=== PATIENT | female | born 1945 | race Caucasian/White ===

== ENCOUNTER → 2018-02-18 00:16 | Outpatient (CLI) | payer MEDICARE, SELFPAY ==
--- NOTE | 2018-02-18 09:53 | DI.REPORT_ITS ---
SYMPTOM/DIAGNOSIS: 6-MO F/U ABNL MAMMO. RIGHT BREAST 6-MONTH FOLLOW UP RIGHT MAMMOGRAM: Mammograms were interpreted according to the usual protocol including computer analysis with CAD system, tomosynthesis and C view imaging. Comparison with prior examinations. Breast density C, no suspicious masses or microcalcifications are seen. There has been no significant change compared to the prior examinations. IMPRESSION: No evidence for malignancy. Yearly mammography should resume in 6 months with screening mammograms. Category 1-C. The findings were discussed with the patient on the date of the examination. SA ASSESSMENT OF FINDINGS: Negative. Category 1. Patient will receive a letter notifying them of these results. Bi-RADS category C. The breasts are heterogeneously dense, which may obscure small masses.
== END ==
PROVIDERS: PCP Specialist/Technologist Athletic Trainer; Visit Provider Physician Assistant Medical
DX: Z12.31 Encounter for screening mammogram for malignant neoplasm of breast (principal); R92.8 Other abnormal and inconclusive findings on diagnostic imaging of breast; N64.59 Other signs and symptoms in breast
CPT/HCPCS: 77065; G0279; 77061

== ENCOUNTER 2018-06-18 11:31 | Emergency (ER) | payer MEDICARE, OTHER, SELFPAY ==
[2018-06-18] VITALS (41 sets, daily range): BP systolic 103–153; BP diastolic 64–99; PULSE 84–175; RESP 8–29; TEMP 36.6; O2SAT 92–100
--- NOTE | 2018-06-18 11:35 | DI.RAD_ITS ---
SYMPTOMS/DIAGNOSIS: CHEST PAIN, SHORTNESS OF BREATH, ? ACUTE DISEASE PA AND LATERAL CHEST: Comparison is made with September,. The heart size is normal. The aorta is mildly tortuous but normal in diameter. There is a question of streaking densities at the left lung base, which could represent overlapping structures, atelectasis or a small infiltrate. No effusions are seen. IMPRESSION: Question of left basilar infiltrate versus atelectasis versus artifact.
[2018-06-18] MEDS: Adenosine 6 MG/2 ML VIAL (11:55)
[2018-06-18 11:57] LABS: Abs Immature Grans 0.02 k/cumm (0.0-0.09); Absolute Basophil Count 0.02 k/cumm (0.0-0.2); Absolute Eosinophil Count 0.16 k/cumm (0.0-0.7); Absolute Monocyte Count 0.92 k/cumm (0.11-0.7); Absolute Neutrophil Count 5.34 k/cumm (1.2-6.7); Basophils % 0.2; Eosinophils % 1.6; HCT 49.3 % (36.0-46.0); HGB 16.4 g/dL (12.0-15.5); Immature Grans % 0.2; Mean Corp. HGB Concentration 33.3 g/dL (32.0-36.0); Mean Corpuscular Hemoglobin 29.2 pg (27.0-33.0); Mean Corpuscular Volume 87.9 fL (80-95); Mean Platelet Volume 10.2 fL (8.0-11.0); Platelet Count 320 x1000/uL (130-400); RBC 5.61 m/cumm (4.00-5.20); RBC Distribution Width 13.6 % (11.7-14.6); White Blood Cell Count 10.26 k/cumm (4.4-10.8)
--- NOTE | 2018-06-18 12:09 | ED.GENADUL_ITS ---
Discharge Plan Disposition Patient Disposition: HOME Condition: Stable Discharge Details Chief Complaint: Palpitatns Clinical Impression: SVT (supraventricular tachycardia) Primary Care Provider: Dm Londono ED Provider: Alley Barajas Home Meds and New Rx's Prescriptions: New azithromycin [Zithromax] 500 mg tablet 500 mg PO QMWF 28 Days Qty: 12 RF: 0 diltiazem HCl 30 mg tablet 30 mg PO DIRECTED PRN (Reason: take 1 tab if heart rate >140 bpm for >10 minutes) Qty: 5 RF: 0 Continue ibuprofen 800 MG tablet 800 mg PO PRN RF: 0 sumatriptan succinate 100 MG tablet 100 mg PO ONCE RF: 0 albuterol sulfate [Ventolin HFA] 8 GM HFA aerosol inhaler 2 puff Inhalation Q2H PRN RF: 0 omeprazole [Prilosec] 10 MG capsule,delayed release(DR/EC) 20 mg PO DAILY RF: 0 venlafaxine [Effexor XR] 37.5 mg Capsule,Extended Release 24hr 37.5 mg PO DAILY RF: 0 rifampin 300 mg Capsule 300 mg PO DIRECTED RF: 0 diazepam 5 mg Tablet 5 mg PO PRN PRNRF: 0 zolpidem [Ambien CR] 12.5 mg Tablet,Ext Release Multiphase 12.5 mg PO HS RF: 0 budesonide-formoterol [Symbicort] 160-4.5 mcg/actuation Hfa Aerosol Inhaler 1 puff Inhalation BID RF: 0 Ethanbutaol 1,200 mg PO DIRECTED RF: 0 Discontinued clarithromycin 500 mg Tablet 1,000 mg PO DIRECTED RF: 0 Discharge Instructions Instructions: Supraventricular Tachycardia (ED) Additional Instructions: Stop taking your clarithromycin. Start taking your Zithromax as directed which will be 500 mg on Saturday and Saturday. If your heart rate is greater than 140 bpm for more than 10 minutes, you can take a 30 mg tablet of Diltiazem. If this does not improve your symptoms, you can return to the emergency department. Return the zio patch as directed. Call your primary care doctor and your health sciences program coordinator tomorrow to schedule follow -up appointment for reevaluation. Return immediately to the emergency department with any worsening or new concerning symptoms. 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 EKG on arrival noted heart rate of 174, SVT, QTC 435, QRS 74. Heart rate 170s. Blood pressure 153/99. Remainder vitals within normal limits. Patient appears nontoxic. Lungs clear to auscultation. No leg edema. 3 attempts with modified Valsalva with minimal reduction of heart rate into the 150s-160s. Patient then given 6 mg adenosine IV x1 and heart rate decreased to 100s-110s. Patient appears anxious and has a h/o anxiety. Pt states her symptoms have improved. Dose of 0.5 mg Ativan given and will continue IVF. 1240 --labs reviewed and no normal white blood cell count. Hemoglobin 16. Potassium 3.3. Magnesium 2. Troponin negative. 1250 -- HR 103. Pt denies any c/o chest pain, sob or palpitations at this time. Will plan for second troponin and will call cardiology for recommendations and attempt to d/w her health sciences program coordinator Dr. Villalobos if recommends to continue biaxin. 1410 -- d/w cardiology Dr. Pierce -recommends patient can either take an -- as needed short acting diltiazem 30 mg tab if heart rate greater than 140 for more than 10 minutes -- or -- patient can take 120 mg diltiazem once daily -- patient can decide which she prefers. Also recommends a zio patch on discharge. Discussed patient's medications and stated that the Effexor, Ambien , Imitrex would be less likely to cause this, and if Biaxin has caused it before , would recommend stopping this. 1440 -- d/w Dr. Villalobos -recommends to stop the Biaxin and start Zithromax 500mg //. We will follow-up with patient in the office in 1 week. 1610 -- second troponin negative. Repeat EKG notes a rate of 90, sinus, T wave inversion in V2, no acute ST elevation or depression. QTc 421. QRS 92. Patient denies any symptoms and feels good and is requesting to go home. Zio patch placed. Pt given scripts for zithromax and diltiazem. Patient would rather take the 30 mg diltiazem tab as needed. She was instructed to return immediately to the emergency department if her symptoms do not improve with the diltiazem as needed. She is instructed to call her primary care doctor and health sciences program coordinator tomorrow to schedule a follow-up appointment. Medical Records Medical records reviewed: Yes I reviewed the patient's medical records. Lab Data Lab results reviewed: Yes I reviewed the patient's lab results. Laboratory Tests Range/Units 06/18/18 06/18/18 06/18/18 11:45 11:45 11:45 WBC (4.4-10.8) k/cumm 10.26 RBC (4.00-5.20) m/cumm 5.61 H Hgb (12.0-15.5) g/dL 16.4 H Hct (36.0-46.0) % 49.3 H MCV (80-95) fL 87.9 MCH (27.0-33.0) pg 29.2 MCHC (32.0-36.0) g/dL 33.3 RDW (11.7-14.6) % 13.6 Plt Count (130-400) x1000/uL 320 MPV (8.0-11.0) fL 10.2 Immature Gran % 0.2 Neutrophils % 52.0 Lymphocytes % 37.0 Monocytes % 9.0 Eosinophils % 1.6 Basophils % 0.2 Absolute Neutrophils (1.2-6.7) k/cumm 5.34 Absolute Lymphocytes (1.2-3.4) k/cumm 3.80 H Absolute Monocytes (0.11-0.7) k/cumm 0.92 H Absolute Eosinophils (0.0-0.7) k/cumm 0.16 Absolute Basophils (0.0-0.2) k/cumm 0.02 Sodium (136-145) mmol/L 137 Potassium (3.5-5.1) mmol/L 3.3 L Chloride (98-107) mmol/L 98 Carbon Dioxide (21.0-32.0) mmol/L 28.4 Anion Gap (3-11) mmol/L 10.6 BUN (7-18) mg/dL 12 Creatinine (0.55-1.02) mg/dL 0.74 Estimated GFR/1.73 m2 (mL/min/1.73m2) >= 60.00 Glucose (70-100) mg/dL 120 H Calcium (8.5-10.1) mg/dL 10.3 H Magnesium (1.8-2.4) mg/dL 2.0 Total Bilirubin (0.2-1.0) mg/dL 1.1 H AST (15-37) U/L 16 ALT (12-78) U/L 23 Alkaline Phosphatase (46-116) U/L 84 Troponin I (0.00-0.06) ng/mL < 0.02 Total Protein (6.4-8.2) g/dL 7.9 Albumin (3.4-5.0) g/dL 4.4 Lipase (73-393) U/L 136 Range/Units 06/18/18 14:45 WBC (4.4-10.8) k/cumm RBC (4.00-5.20) m/cumm Hgb (12.0-15.5) g/dL Hct (36.0-46.0) % MCV (80-95) fL MCH (27.0-33.0) pg MCHC (32.0-36.0) g/dL RDW (11.7-14.6) % Plt Count (130-400) x1000/uL MPV (8.0-11.0) fL Immature Gran % Neutrophils % Lymphocytes % Monocytes % Eosinophils % Basophils % Absolute Neutrophils (1.2-6.7) k/cumm Absolute Lymphocytes (1.2-3.4) k/cumm Absolute Monocytes (0.11-0.7) k/cumm Absolute Eosinophils (0.0-0.7) k/cumm Absolute Basophils (0.0-0.2) k/cumm Sodium (136-145) mmol/L Potassium (3.5-5.1) mmol/L Chloride (98-107) mmol/L Carbon Dioxide (21.0-32.0) mmol/L Anion Gap (3-11) mmol/L BUN (7-18) mg/dL Creatinine (0.55-1.02) mg/dL Estimated GFR/1.73 m2 (mL/min/1.73m2) Glucose (70-100) mg/dL Calcium (8.5-10.1) mg/dL Magnesium (1.8-2.4) mg/dL Total Bilirubin (0.2-1.0) mg/dL AST (15-37) U/L ALT (12-78) U/L Alkaline Phosphatase (46-116) U/L Troponin I (0.00-0.06) ng/mL 0.02 Total Protein (6.4-8.2) g/dL Albumin (3.4-5.0) g/dL Lipase (73-393) U/L ECG Data Attestation: I personally reviewed and interpreted this ECG (s) as follows: Interpretation: EKG #1: 11:38: 174, SVT, diffuse ST depression.. QTc 435. QRS 74. EKG #2: 12:06: 110, sinus tachycardia, no acute ST elevation or depression. T wave inversion in aVL and V2. QTc 452. QRS 102. EKG #3: 15:57: 90, sinus, T wave inversion in V2, right bundle branch block, left anterior fascicular block. No acute ST elevation or depression. QTc 421. QRS 92 - no acute change compared to previous 2009. HPI General Mode of arrival: ambulatory . Date/Time Provider Initiated Documentation: 06/18/18 11:35 . Limitations to Documentation: no limitations . Information obtained by: patient . HPI Narrative: Patient is a 72-year-old female with a history of Mycobacterium avium complex on ethambutol, rifampin and clarithromycin for the past 6 months who presents with sudden onset of chest pain, shortness of breath and palpitations that started 20 minutes ago while driving. Patient admits to a previous history of similar symptoms twice 10 years ago while taking clarithromycin. Patient otherwise denies any recent travel, recent surgery, leg pain or swelling. She states prior to symptoms 20 minutes ago, she had been feeling well and at her baseline. Related Data Home Medications Medication Instructions Recorded Confirmed albuterol sulfate [Ventolin HFA] 2 puff INHALATION Q2H PRN inhaler 06/23/1311/29 ibuprofen 800 mg PO PRN tab-cap 06/23/13 06/18/18 sumatriptan succinate 100 mg PO ONCE tab-cap 06/23/13 06/18/18 omeprazole [Prilosec] 20 mg PO DAILY 10/04/15 06/18/18 Ethanbutaol 1,200 mg PO DIRECTED 06/18/18 azithromycin [Zithromax] 500 mg PO QMWF 28 Days #12 tab 06/18/18 budesonide-formoterol [Symbicort] 1 puff INHALATION BID 06/18/18 06/18/18 diazepam 5 mg PO PRN PRN 06/18/18 06/18/18 diltiazem HCl 30 mg PO DIRECTED PRN #5 tab 06/18/18 rifampin 300 mg PO DIRECTED 06/18/18 06/18/18 venlafaxine [Effexor XR] 37.5 mg PO DAILY 06/18/18 06/18/18 zolpidem [Ambien CR] 12.5 mg PO HS 06/18/18 06/18/18 Previous Rx's Medication Instructions Recorded azithromycin [Zithromax] 500 mg PO QMWF 28 Days #12 tab 06/18/18 diltiazem HCl 30 mg PO DIRECTED PRN #5 tab 06/18/18 Allergies Allergy/AdvReac Type Severity Reaction Status Date / Time naproxen Allergy Unverified 10/18/15 08:19 propoxyphene Allergy Unverified 10/18/15 08:19 amitriptyline AdvReac Unverified 06/18/18 12:08 cholecalciferol (vitamin D3) AdvReac Unverified 06/18/18 12:08 [cholecalciferol (vit D3)] ergocalciferol (vitamin D2) AdvReac Unverified 06/18/18 12:08 [ergocalciferol (vit D2)] oxycodone HCl AdvReac Unverified 06/18/18 12:08 [From OxyContin] General Stated Complaint: Palpitatns SELENE: 2 Review of Systems Review of Systems All systems reviewed & are unremarkable except as noted in HPI and below Constitutional Denies chills, Denies excessive sweating, Denies fatigue, Denies fever(s), Denies weakness and Denies weight loss Eyes Reports system reviewed and no additional complaints, except as docu and Denies blurry vision ENT Denies vertigo, Denies dizziness, Denies otalgia, Denies nasal congestion, Denies sore throat and Denies throat swelling Cardiovascular Reports chest pain, Denies syncope, Reports rapid heart rate and Reports dyspnea Respiratory Reports dyspnea Gastrointestinal Denies abdominal pain, Denies diarrhea and Denies vomiting Genitourinary Denies hematuria, Denies dysuria and Denies flank pain Musculoskeletal Denies back pain and Denies joint swelling Integumentary/Breasts Denies lesions and Denies rash Neurologic Denies behavioral changes, Denies confusion, Denies vertigo, Denies dizziness, Denies syncope and Denies weakness Psychiatric Denies behavioral changes, Denies confusion and Denies depression Endocrine Denies excessive sweating and Denies fatigue Hematologic/Lymphatic Denies easy bruising and Denies lymphadenopathy Allergic/Immunologic Denies throat swelling PFSH Mycobacterium avium complex colonization (Acute) Anxiety (Chronic) Diverticulitis (Chronic) History of bowel resection (Acute) H/O section (Chronic) Medical History Mycobacterium avium complex colonization (Acute) Anxiety (Chronic) Diverticulitis (Chronic) Social History Smoking/Tobacco Use Status: Former Tobacco Use Surgical History History of bowel resection (Acute) H/O section (Chronic) Social History Smoking/Tobacco Use Status: Former Tobacco Use alcohol intake: current alcohol intake frequency: a few times a month substance use type: does not use Exam Const General: cooperative and healthy appearing Orientation: alert and awake HENOK Head: normal to inspection Ears: hearing grossly normal bilaterally and external ears normal General nose exam: external nose normal Face and sinus: normal facial exam Mouth: oral mucosae normal Eyes General: appearance normal, both eyes and all related structures Eyelids: eyelids normal Pupils: PERRL EOM: EOM intact bilaterally Neck Neck: normal visual inspection Lymphatic: no lymphadenopathy noted Chest Chest: normal inspection of the chest Resp Effort & Inspection: normal respiratory effort and able to speak in complete sentences Auscultation: clear to auscultation bilaterally Cardio Rate: tachycardic Rhythm: regular rhythm GI Inspection: normal to inspection Palpation: soft, not firm, no guarding, no hepatosplenomegaly, no masses and nontender Auscultation: normal bowel sounds Skin General skin exam: no rashes or lesions noted Neuro General: alert and awake Cognition: normal cognition Speech: speech normal Gait: normal gait Motor: muscle tone normal throughout Sensory Exam: no sensory deficits noted Extrem General: normal to inspection, full ROM, normal capillary refill and no edema Psych Appearance: grossly normal Mental Status: mental status grossly normal Speech and Movement: speech and movement normal Affect: normal affect Thought Process: normal Course Vital Signs Pulse Oximetry 97 06/18/18 11:33 Temperature 97.9 F 06/18/18 11:40 Temperature Source Skin 06/18/18 11:40 Pulse 158 H 06/18/18 11:45 Pulse 107 H 06/18/18 11:50 Respiratory Rate 24 06/18/18 11:50 Respiratory Effort 06/18/18 11:43 Blood Pressure 133/71 06/18/18 11:45 Blood Pressure Mean 85 06/18/18 11:45 Pulse Oximetry 98 06/18/18 11:50 Oxygen Delivery Method Room Air 06/18/18 11:40 Oxygen Flow Rate 0 06/18/18 11:40 Pain Level 6 06/18/18 11:40 Comment 06/18/18 11:40 Lab/Test Results Lab/Test Results: Laboratory Tests Range/Units 06/18/18 11:45 WBC (4.4-10.8) k/cumm 10.26 RBC (4.00-5.20) m/cumm 5.61 H Hgb (12.0-15.5) g/dL 16.4 H Hct (36.0-46.0) % 49.3 H MCV (80-95) fL 87.9 MCH (27.0-33.0) pg 29.2 MCHC (32.0-36.0) g/dL 33.3 RDW (11.7-14.6) % 13.6 Plt Count (130-400) x1000/uL 320 MPV (8.0-11.0) fL 10.2 Immature Gran % 0.2 Neutrophils % 52.0 Lymphocytes % 37.0 Monocytes % 9.0 Eosinophils % 1.6 Basophils % 0.2 Absolute Neutrophils (1.2-6.7) k/cumm 5.34 Absolute Lymphocytes (1.2-3.4) k/cumm 3.80 H Absolute Monocytes (0.11-0.7) k/cumm 0.92 H Absolute Eosinophils (0.0-0.7) k/cumm 0.16 Absolute Basophils (0.0-0.2) k/cumm 0.02
[2018-06-18] MEDS: LORazepam 2 MG/ML VIAL (12:10)
[2018-06-18 12:13] LABS: ALT 23 U/L (12-78); AST 16 U/L (15-37); Albumin 4.4 g/dL (3.4-5.0); Alkaline Phosphatase 84 U/L (46-116); Anion Gap 10.6 mmol/L (3-11); BUN 12 mg/dL (7-18); Bilirubin, Total 1.1 mg/dL (0.2-1.0); CO2 28.4 mmol/L (21.0-32.0); CREATININE 0.74 mg/dL (0.55-1.02); Calcium 10.3 mg/dL (8.5-10.1); Chloride 98 mmol/L (98-107); Glucose 120 mg/dL (70-100); Potassium 3.3 mmol/L (3.5-5.1); Sodium 137 mmol/L (136-145); Total Protein 7.9 g/dL (6.4-8.2)
[2018-06-18 12:15] LABS: Troponin I < 0.02 ng/mL (0.00-0.06)
[2018-06-18 12:16] LABS: Lipase 136 U/L (73-393)
[2018-06-18] MEDS: Potassium Chloride 20 MEQ TABCR 40 MEQ PO (12:56)
[2018-06-18 15:08] LABS: Troponin I 0.02 ng/mL (0.00-0.06)
--- NOTE | 2018-07-10 09:00 | ZIOP_ITS ---
ZIO PATCH REPORT DATE OF DICTATION July 10, 2018 REASON FOR STUDY Palpitations. REQUESTING PROVIDER ALEXANDRE Aguirre FINDINGS The patient was monitored for 14 days. COMMENTS The patient was in sinus rhythm throughout. Average heart rate 85 beats per minute. Range 54 to 134 beats per minutes. There was rare ectopy. Less than 1% PACs and less than 1% PVCs. There was no ventricular or supraventricular tachycardia. There were no pauses greater than 3 seconds. There was no higher degree heart block. SYMPTOMS There were 7 patient events. None of these events correlated with arrhythmias. FINAL INTERPRETATION Normal study. Gold Pierce M.D. MISTI/carine T - 07/10/2018
--- NOTE | 2018-07-14 16:40 | ZIOP_ITS ---
DATE OF DICTATION: July 14, [address]: Fourteen days, June 18-2017 Baseline rhythm sinus. Rare single PAC. No SVT. No atrial fibrillation. Rare single PVC. No VT. No bradycardia or block. Seven triggered events occurring during sinus rhythm 69-120 bpm. No symptoms. Average heart rate sinus 85 bpm, range 54-134 bpm.
== END 2018-06-18 16:33 | disposition home or self-care (01) ==
PROVIDERS: Emergency Provider Physician Assistant; PCP Specialist/Technologist Athletic Trainer
DX: I47.1 Supraventricular tachycardia (principal); R07.9 Chest pain, unspecified; A31.0 Pulmonary mycobacterial infection
CPT/HCPCS: 36415; 80053; 83690; 93005; 93225; 96374; 96375; 99285; 71046; 83735; 84484; 85025; 93010; J0153; J2060

== ENCOUNTER 2018-07-10 08:20 | Outpatient (CLI) | payer MEDICARE, OTHER, SELFPAY | END 2018-07-10 08:40 | PROVIDERS: PCP Specialist/Technologist Athletic Trainer; Referring Provider Physician Assistant; Visit Provider Student in an Organized Health Care Education/Training Program | DX: R00.2 Palpitations (principal); I47.1 Supraventricular tachycardia | CPT/HCPCS: 0298T ==

== ENCOUNTER 2018-07-14 16:16 | Outpatient (CLI) | payer MEDICARE, OTHER, SELFPAY | END 2018-07-14 16:36 | PROVIDERS: PCP Specialist/Technologist Athletic Trainer; Referring Provider Specialist/Technologist Athletic Trainer; Visit Provider Internal Medicine Interventional Cardiology | DX: I47.1 Supraventricular tachycardia (principal); R07.9 Chest pain, unspecified | CPT/HCPCS: 0298T ==

== ENCOUNTER 2018-08-18 00:45 | Outpatient (CLI) | payer MEDICARE, OTHER, SELFPAY ==
--- NOTE | 2018-08-18 10:49 | DI.MAMMO_ITS ---
SYMPTOMS/DIAGNOSIS: SCREENING, Z12.31, HEALTH MAINTENANCE EXAM, Z00.8 MAMMOGRAM: Mammograms were interpreted according to the usual protocol including computer analysis with CAD system, tomosynthesis and C view imaging. Comparison is made with exams from 2013 through 2018. The breasts are composed of heterogeneously dense fibroglandular tissue, breast density Category C. No suspicious masses or suspicious microcalcifications are seen. There has been no significant change. IMPRESSION: Category I C, negative mammogram. Yearly screening mammography is recommended. [facility] ASSESSMENT OF FINDINGS: Negative. Category 1. Patient will receive a letter notifying them of these results. Bi-RADS category C. The breasts are heterogeneously dense, which may obscure small masses.
== END 2018-08-18 01:05 ==
PROVIDERS: PCP Specialist/Technologist Athletic Trainer; Visit Provider Physician Assistant Medical
DX: Z12.31 Encounter for screening mammogram for malignant neoplasm of breast (principal)
CPT/HCPCS: 77063; 77067

== ENCOUNTER 2018-10-28 21:01 | Outpatient (REF) | payer MEDICARE, SELFPAY | END 2018-10-28 21:21 | LOC: NCHCN 21:01 | PROVIDERS: PCP Specialist/Technologist Athletic Trainer; Visit Provider Physician Assistant Medical | DX: N39.0 Urinary tract infection, site not specified (principal) | CPT/HCPCS: 87086 ==

== ENCOUNTER 2019-05-11 14:23 | Emergency (ER) | payer MEDICARE, SELFPAY ==
[2019-05-11] VITALS (32 sets, daily range): BP systolic 110–171; BP diastolic 62–90; PULSE 67–88; RESP 15–24; TEMP 36.8; O2SAT 92–95
[2019-05-11] MEDS: Normal Saline Flush 10 ML SYR IVP (14:40)
--- NOTE | 2019-05-11 14:42 | DI.RAD_ITS ---
EXAM: XR CHEST 2V PA AND LATERAL INDICATION: left-sided chest pain. COMPARISON: XR CHEST 2V PA LATERAL from 06/18/2018 TECHNIQUE: 2D digital imaging was performed. FINDINGS: The heart size and pulmonary vasculature are within normal limits. The lungs show no consolidating i nfiltrates or effusions. No pneumothorax is identified. Age-appropriate degenerative changes are se en in the spine. IMPRESSION: No acute pulmonary process.
--- NOTE | 2019-05-11 14:44 | ED.GENADUL_ITS ---
Discharge Plan Disposition Patient Disposition: HOME Condition: Fair Discharge Details Chief Complaint: Chest Pain Clinical Impression: Chest pain, Leukocytosis Primary Care Provider: Tony Fuller ED Provider: Darlene La Home Meds and New Rx's Prescriptions: Continued ibuprofen 800 MG tablet 800 mg PO PRN RF: 0 sumatriptan succinate 100 MG tablet 100 mg PO ONCE RF: 0 albuterol sulfate [Ventolin HFA] 8 GM HFA aerosol inhaler 2 puff Inhalation Q2H PRN RF: 0 omeprazole [Prilosec] 10 MG capsule,delayed release(DR/EC) 20 mg PO DAILY RF: 0 temazepam 15 mg Capsule 15 mg PO PRNRF: 0 azithromycin 500 mg Tablet 500 mg PO RF: 0 venlafaxine 37.5 mg Capsule,Extended Release 24hr 37.5 mg PO DAILY RF: 0 Arikayce 590 mg/8.4 mL Suspension For Nebulization INHALATION RF: 0 rifampin 300 mg Capsule 300 mg PO DIRECTED RF: 0 diazepam 5 mg Tablet 5 mg PO PRN PRNRF: 0 Symbicort 160-4.5 mcg/actuation Hfa Aerosol Inhaler 1 puff Inhalation BID RF: 0 Ethanbutaol 1,200 mg PO DIRECTED RF: 0 diltiazem HCl 30 mg tablet 30 mg PO DIRECTED PRN (Reason: take 1 tab if heart rate >140 bpm for >10 minutes) Qty: 5 RF: 0 Discharge Instructions Instructions: Leukocytosis (ED) Additional Instructions: Encourage hydration. Please continue medications as previously prescribed. As we discussed, your white count is elevated but this is likely associated with the prednisone. We should have this rechecked by your primary care provider. Please call pulmonology to discuss the change in medications. If you develop no recurrence of your pain, shortness of breath or the new/worsening symptoms please seek care urgently once again. Please call your primary care tomorrow to schedule appointment for reevaluation this week. Referrals: Tony Fuller PA [Primary Care Provider] - Medical Decision Making <ALEXANDRE Delacruz - Last Filed: 05/11/19 16:11> This is a nontoxic-appearing 33-year-old female presenting to the emergency department with abrupt onset of left upper chest pain, sharp in nature. No radiation of symptoms. Physical exam is unremarkable. Her labs thus far are all within normal limits. Her chest x-ray is negative for acute process. Low heart score based on information thus far. Discussed repeat delta troponin. Case reviewed with Darlene La PAC. who will assume care. See her note for final disposition ECG Data Interpretation: Sinus rhythm with low voltage criteria. Question left anterior fascicular block. No STEMI. No T wave inversion <ALEXANDRE Tristan - Last Filed: 05/11/19 18:13> Care was transitioned to myself with imaging and repeat troponin pending. FINDINGS: The heart size and pulmonary vasculature are within normal limits. The lungs show no consolidating infiltrates or effusions. No pneumothorax is identified. Age-appropriate degenerative changes are seen in the spine. IMPRESSION: No acute pulmonary process. Reviewed the labs completed thus far, patient is noted to have a leukocytosis with white count of 15.29. Platelet count is slightly elevated at 413. Absolute neutrophil 8.39. Patient is CBC completed on 04/14/2019 at [facility] at which time white count was 7. Discussed these findings with the patient. At this time, we discussed she is currently on prednisone. Is likely was driving her new leukocytosis. However, particular given her history of MAC, I did advise that she have this rechecked and closely follow-up with her primary care. Repeat troponin remains less than 0.05. I discussed this with the patient. She is been asymptomatic while here. As the symptoms came on suddenly while sedentary and lasted 30 seconds, spontaneously resolving, this does not sound typical for cardiac etiology of chest pain. Her d-dimer was negative. Advise close follow-up with primary care as well as pulmonology. She will call both of them tomorrow to schedule prompt follow-up. She was given strict return precautions. Patient does feel comfortable going home. All of her questions and concerns were addressed and she is in agreement with this plan. HPI <ALEXANDRE Delacruz - Last Filed: 05/11/19 16:11> General Date/Time Provider Initiated Documentation: 05/11/19 14:27 . 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 She has been on roughly 13 months of therapy. She presents to the emergency department with left upper chest pain which started abruptly roughly 3 hours prior to arrival. She describes this pain as sharp and nonradiating. She was sitting at the kitchen counter when it occurred. She denies any nausea. She did feel slightly woozy. She states that she was seen at [facility] 5 days prior for symptoms of dyspnea along with chest pain. She had a normal work-up at that time and was discharged home. She was taking Arikayce (medication, and inhaled for MAC infection) at that time for which she has discontinued. Related Data Home Medications Medication Instructions Recorded Confirmed albuterol sulfate [Ventolin HFA] 2 puff INHALATION Q2H PRN inhaler 06/23/13 05/11/19 ibuprofen 800 mg PO PRN tab-cap 06/23/13 05/11/19 sumatriptan succinate 100 mg PO ONCE tab-cap 06/23/13 05/11/19 omeprazole [Prilosec] 20 mg PO DAILY 10/04/15 05/11/19 Ethanbutaol 1,200 mg PO DIRECTED 06/18/18 05/11/19 Symbicort 1 puff INHALATION BID 06/18/18 05/11/19 diazepam 5 mg PO PRN PRN 06/18/18 05/11/19 diltiazem HCl 30 mg PO DIRECTED PRN #5 tab 06/18/18 05/11/19 rifampin 300 mg PO DIRECTED 06/18/18 05/11/19 Arikayce mg INHALATION 05/11/19 azithromycin 500 mg PO 05/11/19 temazepam 15 mg PO PRN 05/11/19 venlafaxine 37.5 mg PO DAILY 05/11/19 05/11/19 Previous Rx's Medication Instructions Recorded diltiazem HCl 30 mg PO DIRECTED PRN #5 tab 06/18/18 Allergies Allergy/AdvReac Type Severity Reaction Status Date / Time naproxen Allergy Unverified 05/11/19 14:43 propoxyphene Allergy Unverified 05/11/19 14:43 amitriptyline AdvReac Unverified 05/11/19 14:43 cholecalciferol (vitamin D3) AdvReac Unverified 05/11/19 14:43 [cholecalciferol (vit D3)] ergocalciferol (vitamin D2) AdvReac Unverified 05/11/19 14:43 [ergocalciferol (vit D2)] oxycodone HCl AdvReac Unverified 05/11/19 14:43 [From OxyContin] General Stated Complaint: Chest Pain SELENE: 2 Review of Systems <ALEXANDRE Delacruz - Last Filed: 05/11/19 16:11> Constitutional Constitutional: Denies body ache(s), Denies chills, Denies fever(s), Denies leth argy, Denies malaise, Denies night sweats and Denies weakness ENT Ears, Nose, Mouth, and Throat: Denies dizziness and Denies neck pain Cardiovascular Cardiovascular: Reports chest pain, Denies chest pain at rest, Denies chest pain with activity, Denies diaphoresis, Denies syncope, Denies irregular heart rhythm, Denies claudication, Denies leg ulcers, Denies leg edema, Denies lightheadedness, Denies palpitations, Reports dyspnea and Denies dyspnea on exertion Respiratory Respiratory: Denies cough, Denies hemoptysis, Reports dyspnea, Denies dyspnea on exertion and Denies wheezing Gastrointestinal Gastrointestinal: Denies abdominal pain, Denies nausea and Denies vomiting Musculoskeletal Musculoskeletal: Denies back pain, Denies neck pain and Denies numbness Integumentary/Breasts Skin/Breast: Denies rash Neurologic Neurologic: Denies confusion, Denies dizziness, Denies syncope, Denies numbness and Denies weakness Psychiatric Psychiatric: Denies confusion Endocrine Endocrine: Denies palpitations Allergic/Immunologic Allergic/Immunologic: Denies wheezing PFSH <ALEXANDRE Delacruz - Last Filed: 05/11/19 16:11> Medical History Anxiety (Chronic) Diverticulitis (Chronic) Mycobacterium avium complex colonization (Acute) Surgical History H/O section (Chronic) History of bowel resection (Acute) Social History Smoking/Tobacco Use Status: Former Tobacco Use Alcohol Intake: current Alcohol Intake frequency: a few times a month Drug use: Never Substance use type: does not use Do you feel safe in your relationship?: Yes Exam <ALEXANDRE Delacruz - Last Filed: 05/11/19 16:11> Const General: cooperative, healthy appearing, comfortable and no acute distress Nutritional Appearance: average body habitus Orientation: alert, awake and oriented x3 HENMT Head: normal to inspection General nose exam: external nose normal Face and sinus: normal facial exam Mouth: oral mucosae normal Eyes General: appearance normal, both eyes and all related structures Periorbital: periorbital findings normal Pupils: PERRL EOM: EOM intact bilaterally Neck Neck: normal visual inspection, full ROM and no lymphadenopathy Chest Chest: normal inspection of the chest and normal palpation of entire chest wall Breast inspection: normal inspection of the breasts Resp Effort & Inspection: normal respiratory effort and able to speak in complete sentences Auscultation: clear to auscultation bilaterally Cardio Rate: regular rate Rhythm: regular rhythm Pulses: normal peripheral pulses GI Inspection: normal to inspection Palpation: soft Back/Spine/Pelvis Back: no CVA tenderness Skin General skin exam: no rashes or lesions noted Neuro General: alert, awake and oriented x3 Cranial Nerves: CN's II-XI intact bilaterally Course <ALEXANDRE Delacruz Filed: 05/11/19 16:11> Vital Signs Vital signs: Vital Signs Temperature 36.8 C 05/11/19 14:38 Pulse 86 05/11/19 14:38 Respiratory Rate 16 05/11/19 14:38 Blood Pressure 171/84 H 05/11/19 14:38 Pulse Oximetry 94 L 05/11/19 14:38 Temperature 36.8 C 05/11/19 14:38 Temperature Source Skin 05/11/19 14:38 Pulse 86 05/11/19 14:38 Respiratory Rate 16 05/11/19 14:38 Respiratory Effort Non-Labored 05/11/19 14:38 Blood Pressure 171/84 H 05/11/19 14:38 Blood Pressure Position Supine 05/11/19 14:38 Pulse Oximetry 94 L 05/11/19 14:38 Oxygen Delivery Method Room Air 05/11/19 14:38 Oxygen Flow Rate 0 05/11/19 14:38 Pain Level 0 05/11/19 14:38 Sign Out <ALEXANDRE Delacruz Filed: 05/11/19 16:11> Sign Out Data: Sign Out Comment: Awaiting delta troponin. Initial labs all within normal limits including d-dimer. If delta troponin patient can be discharged home with close follow-up. Last updated by Chano Ramirez PA at 05/11/19 16:07
[2019-05-11 15:16] LABS: Abs Immature Grans 0.05 k/cumm (0.0-0.09); Absolute Basophil Count 0.03 k/cumm (0.0-0.2); Absolute Eosinophil Count 0.84 k/cumm (0.0-0.7); Absolute Monocyte Count 1.22 k/cumm (0.11-0.7); Basophils % 0.2; Eosinophils % 5.5; HCT 47.3 % (36.0-46.0); HGB 15.4 g/dL (12.0-15.5); Immature Grans % 0.3; Lymphocytes % 31.1; Mean Corp. HGB Concentration 32.6 g/dL (32.0-36.0); Mean Corpuscular Hemoglobin 28.6 pg (27.0-33.0); Mean Corpuscular Volume 87.9 fL (80-95); Mean Platelet Volume 10.1 fL (8.0-11.0); Neutrophils % 54.9; Platelet Count 413 x1000/uL (130-400); RBC 5.38 m/cumm (4.00-5.20); RBC Distribution Width 13.6 % (11.7-14.6); White Blood Cell Count 15.29 k/cumm (4.4-10.8)
[2019-05-11 15:17] LABS: Absolute Lymphocyte Count 4.76 k/cumm (1.2-3.4)
[2019-05-11 15:18] LABS: Absolute Neutrophil Count 8.39 k/cumm (1.2-6.7)
[2019-05-11 15:31] LABS: ALT 29 U/L (14-59); AST 14 U/L (15-37); Alkaline Phosphatase 86 U/L (46-116); Anion Gap 4.8 mmol/L (3-11); BUN 13 mg/dL (7-18); Bilirubin, Total 0.2 mg/dL (0.2-1.0); CO2 31.2 mmol/L (21.0-32.0); CREATININE 0.66 mg/dL (0.55-1.02); Calcium 10.5 mg/dL (8.5-10.1); Chloride 102 mmol/L (98-107); Glucose 98 mg/dL (70-100); Magnesium 2.2 mg/dL (1.8-2.4); Sodium 138 mmol/L (136-145); Total Protein 7.8 g/dL (6.4-8.2)
[2019-05-11 15:32] LABS: Troponin I < 0.05 ng/mL (0.00-0.06)
[2019-05-11 15:46] LABS: D-Dimer 238 ng/mlFEU (<500)
[2019-05-11 17:37] LABS: Troponin I < 0.05 ng/mL (0.00-0.06)
== END 2019-05-11 18:15 | disposition home or self-care (01) ==
PROVIDERS: Physician Assistant; Emergency Provider Physician Assistant; PCP Physician Assistant Medical
DX: R07.9 Chest pain, unspecified (principal); D72.829 Elevated white blood cell count, unspecified
CPT/HCPCS: 36415; 80053; 99284; 71046; 83735; 84484; 85025; 85379

== ENCOUNTER 2019-07-06 01:44 | Outpatient (CLI) | payer MEDICARE, SELFPAY ==
--- NOTE | 2019-07-24 08:26 | W.ZIOMONITOR ---
Date of service: 07/24/19 Time of Service: 08:27 ZIO Patch Fishing Captain Note: This is a 2-week ZIO patch ordered for the indication of palpitations. ?The patient was predominantly in normal sinus rhythm. ?There was one episode of supraventricular tachycardia which lasted 7 beats at a maximum rate of 154 bpm. ?There were isolated (less than 1%) supraventricular ectopic beats ?There were isolated (less than 1%) ventricular ectopic beats and no runs of ventricular tachycardia. ?There were no pauses greater than 3 seconds, episodes of high degree AV block or episodes of atrial fibrillation. ?Patient triggered event was associated with sinus rhythm.
== END 2019-07-06 02:04 ==
PROVIDERS: PCP Physician Assistant Medical; Visit Provider Internal Medicine Cardiovascular Disease
DX: R00.2 Palpitations (principal); I47.1 Supraventricular tachycardia; I49.3 Ventricular premature depolarization
CPT/HCPCS: 0296T

== ENCOUNTER 2019-07-24 08:26 | Outpatient (CLI) | payer MEDICARE, SELFPAY | END 2019-07-24 08:46 | PROVIDERS: PCP Physician Assistant Medical; Referring Provider Physician Assistant Medical; Visit Provider Internal Medicine Cardiovascular Disease | DX: R00.2 Palpitations (principal); I47.1 Supraventricular tachycardia; I49.3 Ventricular premature depolarization | CPT/HCPCS: 0298T ==

== ENCOUNTER 2019-07-31 08:44 | Outpatient (CLI) | payer MEDICARE, SELFPAY ==
[2019-07-31 11:52] LABS: Abs Immature Grans 0.02 k/cumm (0.0-0.09); Absolute Basophil Count 0.01 k/cumm (0.0-0.2); Absolute Eosinophil Count 0.16 k/cumm (0.0-0.7); Absolute Lymphocyte Count 2.58 k/cumm (1.2-3.4); Absolute Monocyte Count 0.56 k/cumm (0.11-0.7); Absolute Neutrophil Count 3.74 k/cumm (1.2-6.7); Basophils % 0.1; Eosinophils % 2.3; HCT 42.9 % (36.0-46.0); Immature Grans % 0.3 %; Lymphocytes % 36.5; Mean Corp. HGB Concentration 32.6 g/dL (32.0-36.0); Mean Corpuscular Hemoglobin 28.8 pg (27.0-33.0); Mean Corpuscular Volume 88.3 fL (80-95); Mean Platelet Volume 10.1 fL (8.0-11.0); Monocytes % 7.9; Neutrophils % 52.9; Platelet Count 314 x1000/uL (130-400); RBC 4.86 m/cumm (4.00-5.20); White Blood Cell Count 7.07 k/cumm (4.4-10.8)
[2019-07-31 12:56] LABS: ALT 15 U/L (14-59); AST 14 U/L (15-37); Albumin 3.9 g/dL (3.4-5.0); Alkaline Phosphatase 86 U/L (46-116); Amylase 60 U/L (25-115); Anion Gap 9.9 mmol/L (3-11); BUN 10 mg/dL (7-18); Bilirubin, Total 0.7 mg/dL (0.2-1.0); CO2 27.1 mmol/L (21.0-32.0); CREATININE 0.64 mg/dL (0.55-1.02); Calcium 9.7 mg/dL (8.5-10.1); Chloride 102 mmol/L (98-107); Glucose 98 mg/dL (74-106); Lipase 128 U/L (73-393); Potassium 3.8 mmol/L (3.5-5.1); Sodium 139 mmol/L (136-145); Total Protein 6.7 g/dL (6.4-8.2)
== END 2019-07-31 09:04 ==
PROVIDERS: PCP Physician Assistant Medical; Visit Provider Internal Medicine Infectious Disease
DX: R10.9 Unspecified abdominal pain (principal)
CPT/HCPCS: 36415; 80053; 83690; 87116; 87206; 82150; 85025

== ENCOUNTER 2019-08-03 08:40 | Outpatient (CLI) | payer MEDICARE, SELFPAY | END 2019-08-03 09:00 | PROVIDERS: PCP Physician Assistant Medical; Visit Provider Internal Medicine Cardiovascular Disease | DX: I47.1 Supraventricular tachycardia (principal); A31.0 Pulmonary mycobacterial infection; I48.0 Paroxysmal atrial fibrillation | CPT/HCPCS: 99204; 99215; 93005; 93010 ==

== ENCOUNTER 2019-09-14 09:48 | Outpatient (CLI) | payer MEDICARE, SELFPAY ==
[2019-09-14 14:44] LABS: Abs Immature Grans 0.01 k/cumm (0.0-0.09); Absolute Basophil Count 0.01 k/cumm (0.0-0.2); Absolute Eosinophil Count 0.17 k/cumm (0.0-0.7); Absolute Lymphocyte Count 1.96 k/cumm (1.2-3.4); Absolute Monocyte Count 0.52 k/cumm (0.11-0.7); Absolute Neutrophil Count 4.03 k/cumm (1.2-6.7); Basophils % 0.1; Eosinophils % 2.5; HCT 43.2 % (36.0-46.0); HGB 13.9 g/dL (12.0-15.5); Immature Grans % 0.1 %; Lymphocytes % 29.3; Mean Corp. HGB Concentration 32.2 g/dL (32.0-36.0); Mean Corpuscular Hemoglobin 28.8 pg (27.0-33.0); Mean Corpuscular Volume 89.4 fL (80-95); Mean Platelet Volume 9.9 fL (8.0-11.0); Monocytes % 7.8; Neutrophils % 60.2; Platelet Count 289 x1000/uL (130-400); RBC 4.83 m/cumm (4.00-5.20); RBC Distribution Width 14.2 % (11.7-14.6)
[2019-09-14 15:38] LABS: ALT 17 U/L (14-59); AST 14 U/L (15-37); Albumin 3.7 g/dL (3.4-5.0); Alkaline Phosphatase 69 U/L (46-116); Anion Gap 7.8 mmol/L (3-11); BUN 13 mg/dL (7-18); Bilirubin, Total 0.6 mg/dL (0.2-1.0); CO2 31.2 mmol/L (21.0-32.0); CREATININE 0.61 mg/dL (0.55-1.02); Calcium 9.6 mg/dL (8.5-10.1); Chloride 103 mmol/L (98-107); Glucose 127 mg/dL (74-106); Potassium 3.6 mmol/L (3.5-5.1); Sodium 142 mmol/L (136-145); Total Protein 6.4 g/dL (6.4-8.2)
== END 2019-09-14 10:08 ==
PROVIDERS: PCP Physician Assistant Medical; Visit Provider Internal Medicine Infectious Disease
DX: Z51.81 Encounter for therapeutic drug level monitoring (principal); R69 Illness, unspecified
CPT/HCPCS: 36415; 80053; 85025

== ENCOUNTER 2020-01-01 10:44 | Outpatient (REF) | payer MEDICARE, SELFPAY ==
[2020-01-01 19:59] LABS: ALT 21 U/L (14-59); AST 18 U/L (15-37); Albumin 4.1 g/dL (3.4-5.0); Alkaline Phosphatase 70 U/L (46-116); Anion Gap 8.5 mmol/L (3-11); BUN 11 mg/dL (7-18); Bilirubin, Total 0.7 mg/dL (0.2-1.0); CO2 28.5 mmol/L (21.0-32.0); CREATININE 0.68 mg/dL (0.55-1.02); Chloride 102 mmol/L (98-107); Glucose 93 mg/dL (74-106); Potassium 4.3 mmol/L (3.5-5.1); Sodium 139 mmol/L (136-145); Total Protein 6.9 g/dL (6.4-8.2)
[2020-01-01 20:29] LABS: Abs Immature Grans 0.02 k/cumm (0.0-0.09); Absolute Basophil Count 0.01 k/cumm (0.0-0.2); Absolute Eosinophil Count 0.19 k/cumm (0.0-0.7); Absolute Lymphocyte Count 2.59 k/cumm (1.2-3.4); Absolute Monocyte Count 0.71 k/cumm (0.11-0.7); Absolute Neutrophil Count 3.65 k/cumm (1.2-6.7); Basophils % 0.1; Eosinophils % 2.6; HCT 45.1 % (36.0-46.0); Immature Grans % 0.3 %; Lymphocytes % 36.1; Mean Corp. HGB Concentration 33.3 g/dL (32.0-36.0); Mean Corpuscular Hemoglobin 29.5 pg (27.0-33.0); Mean Corpuscular Volume 88.8 fL (80-95); Mean Platelet Volume 10.5 fL (8.0-11.0); Monocytes % 9.9; Platelet Count 308 x1000/uL (130-400); RBC 5.08 m/cumm (4.00-5.20); RBC Distribution Width 14.2 % (11.7-14.6); White Blood Cell Count 7.17 k/cumm (4.4-10.8)
[2020-01-01 20:44] LABS: Hemoglobin A1C 5.8 % (3.8-5.6)
== END 2020-01-01 11:04 ==
LOC: NCHCN 10:44
PROVIDERS: PCP Physician Assistant Medical; Visit Provider Physician Assistant Medical
DX: A31.0 Pulmonary mycobacterial infection (principal); B96.89 Other specified bacterial agents as the cause of diseases classified elsewhere; R73.03 Prediabetes
CPT/HCPCS: 80053; 87116; 87206; 83036; 85025

== ENCOUNTER 2020-01-05 00:39 | Outpatient (CLI) | payer MEDICARE, SELFPAY ==
[2020-01-05] MEDS: Barium Sulfate 60% W/V 355 ML BTL PO ×2 (12:02)
--- NOTE | 2020-01-05 12:03 | DI.RAD_ITS ---
EXAM: RF BARIUM SWALLOW CLINICAL HISTORY: DYSPHAGIA, R13.10 TECHNIQUE: COMPARISON: CR XR CHEST 2V PA LATERAL from 05/11/2019 FINDINGS: Preliminary films of the chest and neck unremarkable, some pulmonary scarring is noted with no signif icant change comparison with prior films including April 2019. Barium was ingested and showed grossly normal hypo pharyngeal motility. Esophageal motility appears within normal limits. No focal esophageal stricture. No esophageal mucosal abnormality. Visualized portions of the stomach and duodenum are unremarkable. IMPRESSION: Negative barium swallow.
== END 2020-01-05 00:59 ==
PROVIDERS: PCP Physician Assistant Medical; Visit Provider Physician Assistant Medical
DX: R13.10 Dysphagia, unspecified (principal)
CPT/HCPCS: 74221

== ENCOUNTER 2020-02-04 00:26 | Outpatient (CLI) | payer MEDICARE, SELFPAY ==
--- NOTE | 2020-02-04 | DI.CT_ITS ---
EXAM: CT CHEST WO CLINICAL HISTORY: MYCOBACTERIUM AVIUM IIBUCVMSIL24.0,CHRONIC COUGH,RECURRENT MAC INFECTION. TECHNIQUE: Imaging protocol: Axial computed tomography images were obtained and coronal and sagittal reformatted images were created and reviewed. COMPARISON: CT CT CHEST WO CONTRAST ( from 06/15/2019 FINDINGS: Tracheobronchial tree: There are stable scattered areas of bronchiectasis present. The findings are most marked in the right middle and left lingular lobes. Mediastinum and Marla: No dominant adenopathy or fluid collection. Pulmonary parenchyma: The parenchymal findings in the right upper lobe, right middle lobe and left up per lobe appears stable. No new infiltrates are present. Unchanged scarring is seen in the right mi ddle lobe and left lingula. Mild centrilobular emphysematous changes are present. Calcified granulo ma are seen in the lungs. Pleura: No effusion or pneumothorax. Heart: The heart is not dilated. No coronary artery calcifications are seen. No pericardial effusion. Aorta: Thoracic aorta non-dilated. Atherosclerosis. Upper abdomen: Stable hepatic cysts. Lymph nodes: Within normal limits. Bones:No acute abnormality. Soft tissues: Unremarkable. IMPRESSION: 1. Stable pulmonary findings compared to the examination from 06/15/2019. 2. No acute pulmonary process. RADIATION DOSE DELIVERED: Total DLP Total DLP DATA REPOSITORY: All CT scans at this facility are submitted to the National Radiology Data Registry (NRDR) Dose Index Registry (DIR) with the [employer] (ACR). RADIATION OPTIMIZATION: All CT scans at this facility use at least one of these dose optimization te chniques: automated exposure control; mA and/or kV adjustment per patient size (includes targeted exa ms where dose is matched to clinical indication); or iterative reconstruction.
== END 2020-02-04 00:46 ==
PROVIDERS: PCP Physician Assistant Medical; Visit Provider Internal Medicine Infectious Disease
DX: R05 Cough (principal); A31.0 Pulmonary mycobacterial infection
CPT/HCPCS: 71250

== ENCOUNTER 2020-04-05 01:31 | Outpatient (CLI) | payer MEDICARE, SELFPAY ==
[2020-04-05 11:40] LABS: Abs Immature Grans 0.02 10^3/uL (0.0-0.06); Absolute Basophil Count 0.02 10^3/uL (0.0-0.2); Absolute Eosinophil Count 0.21 10^3/uL (0.0-0.7); Absolute Lymphocyte Count 2.88 10^3/uL (1.2-3.4); Absolute Monocyte Count 0.53 10^3/uL (0.1-0.8); Absolute Neutrophil Count 4.15 10^3/uL (1.2-6.7); Basophils % 0.3; Eosinophils % 2.7; HCT 44.1 % (36.0-46.0); HGB 13.9 g/dL (11.2-15.7); Immature Grans % 0.3; Lymphocytes % 36.9; MCH 28.6 pg (27.0-33.0); MCHC 31.5 % (32.0-36.0); MCV 90.7 fL (80-95); MPV 9.7 fL (8.0-11.0); Monocytes % 6.8; Nucleated RBC 0 %; Platelet Count 270 10^3/uL (130-400); RBC 4.86 10^6/uL (3.93-5.22); RDW 13.1 % (11.7-14.6); RDW-SD 43.6 fL; WBC 7.81 10^3/uL (4.4-10.8)
[2020-04-05 12:26] LABS: ALT 23 U/L (14-59); AST 15 U/L (15-37); Albumin 3.9 g/dL (3.4-5.0); Alkaline Phosphatase 74 U/L (46-116); Anion Gap 6.8 mmol/L (3-11); BUN 14 mg/dL (7-18); Bilirubin, Total 0.4 mg/dL (0.2-1.0); CO2 31.2 mmol/L (21.0-32.0); CREATININE 0.59 mg/dL (0.55-1.02); Calcium 9.9 mg/dL (8.5-10.1); Chloride 102 mmol/L (98-107); Glucose 95 mg/dL (74-106); Potassium 3.8 mmol/L (3.5-5.1); Sodium 140 mmol/L (136-145); Total Protein 6.7 g/dL (6.4-8.2)
== END 2020-04-05 01:51 ==
PROVIDERS: PCP Physician Assistant Medical; Visit Provider Internal Medicine Infectious Disease
DX: Z51.81 Encounter for therapeutic drug level monitoring (principal); R69 Illness, unspecified
CPT/HCPCS: 36415; 80053; 85025

== ENCOUNTER → 2020-08-09 11:23 | Outpatient (BNVA) | payer MEDICARE, SELFPAY | PROVIDERS: PCP Physician Assistant Medical; Referring Provider Physician Assistant Medical; Visit Provider Internal Medicine Cardiovascular Disease | DX: I47.1 Supraventricular tachycardia (principal) | CPT/HCPCS: 99442; 99213 ==

== ENCOUNTER 2020-09-03 08:10 | Outpatient (REF) | payer MEDICARE, SELFPAY | END 2020-09-03 08:11 | disposition home or self-care (01) | LOC: LBN 08:10 | PROVIDERS: PCP Physician Assistant Medical; Visit Provider Internal Medicine Critical Care Medicine | DX: A31.0 Pulmonary mycobacterial infection (principal) | CPT/HCPCS: 87116; 87206; 87070; 87205 ==

== ENCOUNTER 2020-09-14 16:55 | Outpatient (REF) | payer MEDICARE, SELFPAY ==
[2020-09-14 20:25] LABS: Abs Immature Grans 0.04 10^3/uL (0.0-0.06); Absolute Eosinophil Count 0.92 10^3/uL (0.0-0.7); Absolute Lymphocyte Count 2.77 10^3/uL (1.2-3.4); Absolute Monocyte Count 0.95 10^3/uL (0.1-0.8); Basophils % 0.4; Eosinophils % 8.2; HCT 42.7 % (36.0-46.0); HGB 13.8 g/dL (11.2-15.7); Immature Grans % 0.4; Lymphocytes % 24.6; MCH 28.8 pg (27.0-33.0); MCHC 32.3 % (32.0-36.0); MCV 89.1 fL (80-95); MPV 10.9 fL (8.0-11.0); Monocytes % 8.4; Nucleated RBC 0 %; Platelet Count 317 10^3/uL (130-400); RBC 4.79 10^6/uL (3.93-5.22); RDW 13.1 % (11.7-14.6); WBC 11.28 10^3/uL (4.4-10.8)
[2020-09-14 20:28] LABS: Absolute Basophil Count 0.05 10^3/uL (0.0-0.2); Absolute Neutrophil Count 6.54 10^3/uL (1.2-6.7)
[2020-09-14 20:34] LABS: TSH (W/Ref FT4) 4.59 uIU/mL (0.36-3.74)
== END 2020-09-14 16:56 | disposition home or self-care (01) ==
LOC: NCHCN 16:55
PROVIDERS: PCP Physician Assistant Medical; Visit Provider Physician Assistant Medical
DX: R53.83 Other fatigue (principal)
CPT/HCPCS: 84439; 84443; 85025

== ENCOUNTER 2020-10-03 02:27 | Outpatient (CLI) | payer MEDICARE, SELFPAY ==
--- NOTE | 2020-10-03 | DI.CT_ITS ---
EXAM: CT CHEST WO CLINICAL HISTORY: MYCOBACTERIUM AVIUM INFECTION,A31.0. TECHNIQUE: Multi planar reconstructions were performed. CONTRAST MATERIAL: No IV contrast COMPARISON: CT CT CHEST WO from 02/04/2020 FINDINGS: CHEST: LUNGS: The appearance of lung lazaro is essentially unchanged from the CT scan of January 2020. The prev iously described bilateral lung parenchymal findings are unchanged. There are no new infiltrates nor new nodules. The tiny calcified granuloma again noted. No pleural effusions. MEDIASTINUM: There is no obvious hilar nor mediastinal adenopathy. Small calcifications noted in the anterior aspect of the right thyroid lobe, unchanged.The left thyroid lobe is either undeveloped or s urgically absent. There no clips in this region. CARDIAC: Heart size is normal. There is no pericardial effusion.Caliber of the thoracic aorta is wit hin normal limits. VISUALIZED UPPER ABDOMEN:Cysts in the left hepatic lobe are again noted . No adrenal masses. The lo wer most image this study (image 71) reveals a partially included hypodensity in the cortex of the le ft kidney measuring 6 x 5 millimeters, possibly a benign cyst. OSSEOUS: No significant osseous lesions.. IMPRESSION: 1. Bilateral pulmonary findings are unchanged from CT scan of 02/04/2020. 2. No new pleural effusions. No new intrathoracic adenopathy. 3. Left thyroid lobe is either non developed, atrophic, or surgically absent.. There is a calcificat ion in the anterior aspect of the right thyroid lobe. Partially visualized intra-abdominal findings is as described above. RADIATION DOSE DELIVERED: 487.47mGy.cm Total DLP DATA REPOSITORY: All CT scans at this facility are submitted to the National Radiology Data Registry (NRDR) Dose Index Registry (DIR) with the [employer] (ACR). RADIATION OPTIMIZATION: All CT scans at this facility use at least one of these dose optimization te chniques: automated exposure control; mA and/or kV adjustment per patient size (includes targeted exa ms where dose is matched to clinical indication); or iterative reconstruction.
== END 2020-10-03 02:47 ==
PROVIDERS: PCP Physician Assistant Medical; Visit Provider Internal Medicine Infectious Disease
DX: A31.0 Pulmonary mycobacterial infection (principal)
CPT/HCPCS: 71250

== ENCOUNTER 2020-10-05 16:53 | Outpatient (REF) | payer MEDICARE, SELFPAY | END 2020-10-05 16:54 | disposition home or self-care (01) | LOC: LBN 16:53 | PROVIDERS: PCP Physician Assistant Medical; Visit Provider Internal Medicine Infectious Disease | DX: A31.0 Pulmonary mycobacterial infection (principal); R53.83 Other fatigue | CPT/HCPCS: 87116; 87206 ==

== ENCOUNTER 2020-11-17 03:23 | Outpatient (CLI) | payer MEDICARE, SELFPAY ==
[2020-11-17 18:27] LABS: TSH 0.81 uIU/mL (0.36-3.74)
== END 2020-11-17 03:24 | disposition home or self-care (01) ==
LOC: LBO 03:23
PROVIDERS: PCP Physician Assistant Medical; Visit Provider Physician Assistant Medical
DX: E03.9 Hypothyroidism, unspecified (principal)
CPT/HCPCS: 36415; 84443

== ENCOUNTER 2020-12-02 11:37 | Outpatient (REF) | payer MEDICARE, SELFPAY ==
[2020-12-02 15:02] LABS: ESR 11 mm/hr (0-30)
[2020-12-02 16:25] LABS: Calculated LDL 225 mg/dL (<100); Cholesterol 335 mg/dL (<200); HDL Cholesterol 76 mg/dL (40-60); Triglyceride 170 mg/dL (<150)
[2020-12-03 22:07] LABS: CRP, High Sensitivity 1.49 mg/L (See Note)
[2020-12-05 09:45] LABS: Cyclic Citrullinated Peptide <2.5 U/mL (<5.0)
[2020-12-05 11:39] LABS: Lyme Ab w Rflx to Lyme Confirm Negative (Negative)
[2020-12-05 15:05] LABS: ANA Interpretation Positive (Negative); ANA Titer Pattern 1:80 Speckled
[2020-12-06 18:44] LABS: Anaplasma phagocytophilum Negative (Negative); B. miyamotoi PCR Negative (Negative); Babesia divergens/MO-1 Negative (Negative); Babesia duncani Negative (Negative); Babesia microti Negative (Negative); Ehrlichia chaffeensis Negative (Negative); Ehrlichia ewingii/canis Negative (Negative); Ehrlichia muris eauclairensis Negative (Negative)
== END 2020-12-02 11:38 | disposition home or self-care (01) ==
LOC: NCHCN 11:37
PROVIDERS: PCP Physician Assistant Medical; Visit Provider Physician Assistant Medical
DX: N39.0 Urinary tract infection, site not specified (principal); M25.50 Pain in unspecified joint; E78.5 Hyperlipidemia, unspecified; R73.03 Prediabetes
CPT/HCPCS: 80061; 85652; 86141; 86200; 87077; 87798; 86038; 86618; 87086

== ENCOUNTER 2021-02-06 01:21 | Outpatient (CLI) | payer MEDICARE, SELFPAY ==
--- NOTE | 2021-02-06 | DI.CT_ITS ---
Exam(s) CT CHEST WO EXAM: CT CHEST WO CLINICAL HISTORY: PULMONARY MYCOBACTERIUM INFECTION,A31.0,S/P TREATMENT,CURRENT FATIGUE. TECHNIQUE: Multi planar reconstructions were performed. CONTRAST MATERIAL: None COMPARISON: CT CT CHEST WO from 10/03/2020 FINDINGS: CHEST: LUNGS: The appearance of the lung lazaro remains unchanged. Previously described bilateral lung find ings are unchanged. There are no new infiltrates nor new nodules and no pleural effusions. There ar e no new findings in the trachea and mainstem bronchi. MEDIASTINUM: There is no obvious hilar nor mediastinal adenopathy. Left thyroid lobe is diminutive or surgically absent. Right thyroid lobe exhibits normal size. It contains a small calcification ther ein.No supraclavicular adenopathy. No axillary adenopathy. CARDIAC: Heart size is normal. There is no pericardial effusion.Caliber of the thoracic aorta is wit hin normal limits. VISUALIZED UPPER ABDOMEN:No adrenal masses. Small cyst in the lateral cortex of the left kidney note d. Cysts in the left hepatic lobe are again noted OSSEOUS: No significant osseous lesions.. IMPRESSION: 1. Bilateral pulmonary findings are unchanged from CT scan of 10/03/2020 2. No new pleural effusions nor new intrathoracic adenopathy. 3. Left thyroid lobe is again noted to be diminutive or surgically absent. Again noted is a calcific ation in the anterior aspect of the right thyroid lobe. RADIATION DOSE DELIVERED: 447.07mGy.cm Total DLP DATA REPOSITORY: All CT scans at this facility are submitted to the National Radiology Data Registry (NRDR) Dose Index Registry (DIR) with the [employer] (ACR). RADIATION OPTIMIZATION: All CT scans at this facility use at least one of these dose optimization te chniques: automated exposure control; mA and/or kV adjustment per patient size (includes targeted exa ms where dose is matched to clinical indication); or iterative reconstruction.
== END 2021-02-06 01:41 ==
PROVIDERS: PCP Physician Assistant Medical; Visit Provider Internal Medicine Pulmonary Disease
DX: A31.0 Pulmonary mycobacterial infection; E07.89 Other specified disorders of thyroid; Z90.89 Acquired absence of other organs
CPT/HCPCS: 71250

== ENCOUNTER 2021-03-21 15:13 | Outpatient (REF) | payer MEDICARE, SELFPAY ==
[2021-03-21 21:05] LABS: ALT 34 U/L (14-59); AST 23 U/L (15-37); Albumin 3.9 g/dL (3.4-5.0); Alkaline Phosphatase 99 U/L (46-116); Anion Gap 9.4 mmol/L (3-11); BUN 12 mg/dL (7-18); Bilirubin, Total 0.5 mg/dL (0.2-1.0); CO2 27.6 mmol/L (21.0-32.0); CREATININE 0.8 mg/dL (0.55-1.02); Calcium 9.6 mg/dL (8.5-10.1); Calculated LDL 151 mg/dL (<100); Chloride 105 mmol/L (98-107); Cholesterol 260 mg/dL (<200); Glucose 99 mg/dL (74-106); HDL Cholesterol 72 mg/dL (40-60); Potassium 4.1 mmol/L (3.5-5.1); Sodium 142 mmol/L (136-145); Total Protein 6.9 g/dL (6.4-8.2); Triglyceride 185 mg/dL (<150)
== END 2021-03-21 15:14 | disposition home or self-care (01) ==
LOC: NCHCN 15:13
PROVIDERS: PCP Physician Assistant Medical; Visit Provider Physician Assistant Medical
DX: E78.5 Hyperlipidemia, unspecified (principal)
CPT/HCPCS: 80053; 80061

== ENCOUNTER 2021-03-21 20:50 | Outpatient (CLI) | payer MEDICARE, SELFPAY ==
--- NOTE | 2021-03-21 | DI.RAD_ITS ---
Exam(s) XR HIP PELVIS ADULT BL EXAM: XR HIP PELVIS ADULT BL CLINICAL HISTORY: BILAT HIP PAIN, M25.559. TECHNIQUE: 2D digital imaging was performed. COMPARISON: No exams were available for comparison FINDINGS: BONES: No acute fracture is present. No bony destructive lesion is seen. Bilateral acetabular spurrin g JOINTS: No dislocation present. Mild hip joint space narrowing. Mild SI joint spurring. SOFT TISSUE: Suture material and clips low pelvis. IMPRESSION: Mild to moderate degenerative changes of both hips. DATA REPOSITORY: RADIATION DOSE DELIVERED:
== END 2021-03-21 21:10 ==
PROVIDERS: PCP Physician Assistant Medical; Visit Provider Physician Assistant Medical
DX: M25.551 Pain in right hip (principal); M25.552 Pain in left hip; M16.0 Bilateral primary osteoarthritis of hip
CPT/HCPCS: 73521

== ENCOUNTER 2021-05-04 01:59 | Outpatient (CLI) | payer MEDICARE, SELFPAY ==
--- NOTE | 2021-05-04 12:35 | DI.MAMMO_ITS ---
Exam(s) MAMMO SCREENING EXAM: MAMMO SCREENING CLINICAL HISTORY: SCREENING, HEALTH MAINTENANCE, Z00.8. TECHNIQUE: Bilateral full field digital CC and MLO mammographic images were obtained with 3D tomosyn thesis and utilizing computer aided detection (CAD). COMPARISON: Prior mammograms dating back to 2010, the most recent being August 2018. FINDINGS: The fibroglandular tissue pattern is again noted be moderately dense, this decreasing the sensitivity of the mammogram for finding hidden underlying lesions. There are no new obvious spiculated masses nor malignant appearing microcalcification groups. There is no significant architectural distortion nor skin thickening-retraction. IMPRESSION: Dense bilateral fibroglandular tissue. No obvious radiographic evidence of malignancy nor significan t change compared to prior mammograms listed above. BI-RADS Category 1 - Negative Breast Density - Category C - Heterogeneously dense Breast density Category C or D implies that the patient has dense breast tissue. Dense breast tissue can make it harder to find cancer on a mammogram. Dense breast tissue is also associated with an incr eased risk of breast cancer. This information about the result of the mammogram report was provided to the patient to raise their awareness. Use this report when you speak with the patient about their risks for breast cancer, which includes their family history. At that time, you may recommend additional screening tests (Ultrasoun d or MRI) as these tests may add significant information. A negative radiographic report should not delay biopsy if a dominant or clinically suspicious mass is present. Up to ten percent of cancers are not identified on mammography. A negative report may reinforce clinical impression. Adenosis and dense breasts may obscure an underlying neoplasm. False positive reports average 6 to 10%. Patient will receive a letter notifying them of these results.
== END 2021-05-04 02:19 ==
PROVIDERS: PCP Physician Assistant Medical; Visit Provider Physician Assistant Medical
DX: Z12.31 Encounter for screening mammogram for malignant neoplasm of breast (principal); R92.8 Other abnormal and inconclusive findings on diagnostic imaging of breast
CPT/HCPCS: 77063; 77067

== ENCOUNTER 2021-05-12 16:25 | Outpatient (REF) | payer MEDICARE, SELFPAY | END 2021-05-12 16:26 | disposition home or self-care (01) | LOC: LBN 16:25 | PROVIDERS: PCP Physician Assistant Medical; Visit Provider Family Medicine | DX: N39.0 Urinary tract infection, site not specified (principal) | CPT/HCPCS: 87077; 87086; 87186 ==

== ENCOUNTER 2021-06-06 15:48 | Outpatient (REF) | payer MEDICARE, SELFPAY | END 2021-06-06 15:49 | disposition home or self-care (01) | LOC: LBN 15:48 | PROVIDERS: PCP Physician Assistant Medical; Visit Provider Nurse Practitioner Family | DX: N39.0 Urinary tract infection, site not specified (principal) | CPT/HCPCS: 87077; 87086; 87186 ==

== ENCOUNTER 2021-06-13 13:56 | Outpatient (REF) | payer MEDICARE, SELFPAY | END 2021-06-13 13:57 | disposition home or self-care (01) | LOC: LBN 13:56 | PROVIDERS: PCP Physician Assistant Medical; Visit Provider Internal Medicine Pulmonary Disease | DX: A31.0 Pulmonary mycobacterial infection (principal) | CPT/HCPCS: 87116; 87206 ==

== ENCOUNTER 2021-06-19 16:07 | Outpatient (REF) | payer MEDICARE, SELFPAY ==
[2021-06-19 17:03] LABS: ALT 30 U/L (14-59); AST 17 U/L (15-37); Albumin 3.9 g/dL (3.4-5.0); Alkaline Phosphatase 108 U/L (46-116); Anion Gap 6.7 mmol/L (3-11); BUN 12 mg/dL (7-18); Bilirubin, Total 0.4 mg/dL (0.2-1.0); CO2 30.3 mmol/L (21.0-32.0); CREATININE 0.7 mg/dL (0.55-1.02); Calcium 9.9 mg/dL (8.5-10.1); Calculated LDL 126 mg/dL (<100); Chloride 101 mmol/L (98-107); Cholesterol 233 mg/dL (<200); Glucose 99 mg/dL (74-106); HDL Cholesterol 76 mg/dL (40-60); Potassium 3.8 mmol/L (3.5-5.1); Sodium 138 mmol/L (136-145); Triglyceride 158 mg/dL (<150)
== END 2021-06-19 16:08 | disposition home or self-care (01) ==
LOC: NCHCN 16:07
PROVIDERS: PCP Physician Assistant Medical; Visit Provider Physician Assistant Medical
DX: E78.5 Hyperlipidemia, unspecified (principal); N39.0 Urinary tract infection, site not specified
CPT/HCPCS: 80053; 80061; 87086

== ENCOUNTER 2021-07-05 15:46 | Outpatient (REF) | payer MEDICARE, SELFPAY | END 2021-07-05 15:47 | disposition home or self-care (01) | LOC: NCHCN 15:46 | PROVIDERS: PCP Physician Assistant Medical; Visit Provider Nurse Practitioner Family | DX: N39.0 Urinary tract infection, site not specified (principal) | CPT/HCPCS: 87077; 87086; 87186 ==

== ENCOUNTER → 2021-07-10 09:43 | Outpatient (BNVA) | payer MEDICARE, SELFPAY | PROVIDERS: PCP Physician Assistant Medical; Referring Provider Physician Assistant Medical; Visit Provider Urology | DX: N39.0 Urinary tract infection, site not specified (principal) | CPT/HCPCS: 81003; 99215 ==

== ENCOUNTER 2021-08-07 02:05 | Outpatient (CLI) | payer MEDICARE, SELFPAY ==
--- NOTE | 2021-08-07 07:00 | DI.US_ITS ---
Exam(s) US RENAL EXAM: US RENAL CLINICAL HISTORY: r/o stone or hydronephrosis,RECURRENT UTI,N39.0 TECHNIQUE: Ultrasound of both kidneys performed using standard protocol. COMPARISON: US RIGHT BREAST ULTRASOUND from 07/26/[address] CHEST WO from 10/03/[address] CHEST WO from 02/06/2021 FINDINGS: RIGHT KIDNEY: Measures 10.4 cm in length. No cysts evident. Normal cortical thickness and corticomedullary differen tiation .No solid masses No intrarenal calculi nor hydronephrosis. LEFT KIDNEY: Measures 9.9 cm in length. No cysts evident. Normal cortical thickness and corticomedullary differen tiaion. . No intrarenal calculi nor hydonephrosis. Two hyper echoic in left kidney 1 at midpole 1 and lower pole. Midpole level measures 8 x 9 x 9 mill imeters. Inferior pole finding measures 11 x 13 x 14 millimeters. Suspect that these are angiomyoli natalee. URINARY BLADDER: Prevoid volume is 19 cc Postvoid volume is 11 cc No evidence of bladder mass nor diverticuli. Ureterovesical jets: Both identified and appear symmetrical IMPRESSION: 1. No significant ultrasound findings in the right kidney 2. Two lesions seen in the left kidney. These are both hyperechoic and may represent angiomyolipoma s. Should be further studied with CT scan. DATA REPOSITORY:
== END 2021-08-07 02:25 ==
PROVIDERS: PCP Physician Assistant Medical; Visit Provider Urology
DX: N39.0 Urinary tract infection, site not specified (principal); N28.89 Other specified disorders of kidney and ureter
CPT/HCPCS: 76770

== ENCOUNTER → 2021-08-14 13:27 | Outpatient (BNVA) | payer MEDICARE, SELFPAY | PROVIDERS: PCP Physician Assistant Medical; Referring Provider Physician Assistant Medical; Visit Provider Nurse Practitioner Gerontology | DX: N39.0 Urinary tract infection, site not specified (principal); Z71.2 Person consulting for explanation of examination or test findings | CPT/HCPCS: 99213 ==

== ENCOUNTER 2021-09-25 16:44 | Outpatient (REF) | payer MEDICARE, SELFPAY ==
[2021-09-27 11:46] LABS: COVID-19 RT-PCR UVMMC Result Negative (Negative)
== END 2021-09-25 16:45 | disposition home or self-care (01) ==
LOC: NCHCN 16:44
PROVIDERS: PCP Internal Medicine; Visit Provider Nurse Practitioner Family
DX: Z20.822 Contact with and (suspected) exposure to COVID-19 (principal); R05.8 Other specified cough
CPT/HCPCS: U0003; U0005

== ENCOUNTER 2021-09-29 18:41 | Outpatient (REF) | payer MEDICARE, SELFPAY | END 2021-09-29 18:42 | disposition home or self-care (01) | LOC: NCHCN 18:41 | PROVIDERS: PCP Internal Medicine; Visit Provider Physician Assistant Medical | DX: A31.2 Disseminated mycobacterium avium-intracellulare complex (DMAC) (principal) | CPT/HCPCS: 87116; 87206 ==

== ENCOUNTER 2021-11-07 04:18 | Outpatient (CLI) | payer MEDICARE, SELFPAY ==
--- NOTE | 2021-11-07 | DI.CT_ITS ---
Exam(s) CT CHEST WO EXAM: CT CHEST WO CLINICAL HISTORY: PULMONARY MYCOBACTERIUM INFECTION,A31.0,BRONCHIECTASIS,J47.9,FATIGUE,R53.83. TECHNIQUE: Imaging protocol: Axial computed tomography images were obtained and coronal and sagittal reformatted images were created and reviewed. COMPARISON: CT CT CHEST WO from 02/06/2021 FINDINGS: Tracheobronchial tree: Patent where visualized. Pulmonary parenchyma: There are stable bronchiectatic changes in the lungs particularly the left lung apex. Stable pleural and parenchymal scarring is noted. No acute pulmonary infiltrates are seen. Mild centrilobular emphysema. There are calcified granuloma in the lungs. Mediastinum and Marla: No dominant adenopathy or fluid collection. The esophagus is unremarkable. Thyroid gland: Unremarkable. Pleura: No effusion or pneumothorax. Heart: The heart is not dilated. No coronary artery calcifications are seen. No pericardial effusion. Aorta: Thoracic aorta non-dilated. Atherosclerosis. Upper abdomen: Stable hepatic cysts. Lymph nodes: Within normal limits. Soft tissues: Unremarkable. Bones:Within normal limits for the patient's age. IMPRESSION: Stable appearance of the chest since 02/06/2021. No acute pulmonary process. RADIATION DOSE DELIVERED: 486.95mGy.cm Total DLP 486.95mGy.cm Total DLP DATA REPOSITORY: All CT scans at this facility are submitted to the National Radiology Data Registry (NRDR) Dose Index Registry (DIR) with the [employer] (ACR). RADIATION OPTIMIZATION: All CT scans at this facility use at least one of these dose optimization te chniques: automated exposure control; mA and/or kV adjustment per patient size (includes targeted exa ms where dose is matched to clinical indication); or iterative reconstruction.
== END 2021-11-07 04:38 ==
PROVIDERS: PCP Internal Medicine; Visit Provider Internal Medicine Pulmonary Disease
DX: R53.83 Other fatigue (principal); J47.9 Bronchiectasis, uncomplicated; A31.0 Pulmonary mycobacterial infection; J43.2 Centrilobular emphysema; J98.4 Other disorders of lung
CPT/HCPCS: 71250

== ENCOUNTER 2021-11-21 21:50 | Outpatient (REF) | payer MEDICARE, SELFPAY ==
[2021-11-21 20:04] LABS: TSH 1.32 uIU/mL (0.36-3.74)
== END 2021-11-21 21:51 | disposition home or self-care (01) ==
LOC: NCHCN 21:50
PROVIDERS: PCP Physician Assistant Medical; Visit Provider Physician Assistant Medical
DX: R73.03 Prediabetes (principal); E03.9 Hypothyroidism, unspecified
CPT/HCPCS: 83036; 84443

== ENCOUNTER → 2022-02-01 13:55 | Outpatient (CLI) | payer MEDICARE, SELFPAY ==
--- NOTE | 2022-02-01 | DI.RAD_ITS ---
Exam(s) XR CHEST 2V PA LATERAL EXAM: XR CHEST 2V PA LATERAL CLINICAL HISTORY: COUGH--R05.8. TECHNIQUE: 2D digital imaging was performed. COMPARISON: CT CT CHEST WO from 11/07/2021 FINDINGS: 2 views: Heart size is normal. The mediastinum is not widened. There is some mild infiltrate in the left lower lobe retrocardiac region. Slightly increased markings in the right upper lobe. No pleural effusions seen. IMPRESSION: Subtle increased left lower lobe retrocardiac markings. Probably represents mild infiltrate in the p osterior basal segment of the left lower lobe. There are mild increased markings in the right upper lobe, as seen on prior CT scan. There are no pleural effusions. DATA REPOSITORY: RADIATION DOSE DELIVERED:
== END ==
PROVIDERS: PCP Physician Assistant Medical; Visit Provider Nurse Practitioner Family
DX: R05.9 Cough, unspecified (principal)
CPT/HCPCS: 71046

== ENCOUNTER 2022-02-07 17:11 | Outpatient (REF) | payer MEDICARE, SELFPAY | END 2022-02-07 17:12 | disposition home or self-care (01) | LOC: NCHCN 17:11 | PROVIDERS: PCP Physician Assistant Medical; Visit Provider Physician Assistant Medical ==

== ENCOUNTER → 2022-02-08 09:01 | Outpatient (CLI) | payer MEDICARE, SELFPAY ==
--- NOTE | 2022-02-08 | DI.RAD_ITS ---
Exam(s) XR CHEST 2V PA LATERAL EXAM: XR CHEST 2V PA LATERAL CLINICAL HISTORY: COUGH--R05.8 TECHNIQUE: 2D digital imaging was performed of the chest. Two images were obtained. PA and lateral views were obtained. COMPARISON: CR XR CHEST 2V PA LATERAL from 05/11/2019 CR XR CHEST 2V PA LATERAL from 02/01/2022 FINDINGS: MEDIASTINUM: Normal. HEART: Normal. PULMONARY VASCULATURE: Normal. LUNGS: Clear. PLEURAL SPACE: No pleural effusion or pneumothorax. BONE:Within normal limits for the patient's age. OTHER FINDINGS:Normal. IMPRESSION: No acute pulmonary findings. DATA REPOSITORY: RADIATION DOSE DELIVERED:
--- OUTSIDE RECORDS SUMMARY | 2022-02-08 09:07 | XMS_ITS | Encounter Summary ---
:1945 Author Organization [facility] [place] [address] Care Team Providers Name Role Phone Tony Fuller Primary Care Provider Encounter Details Date Type Department Care Team Description 04/06/2020 Office Visit Pulmonology at [facility] [place] Gomez, Nodular bronchiectatic pulmo nary Mycobacterium avium complex (MAC) infection; [facility] Chronic obstructive pulmonary disease, u nspecified COPD type Drive [facility] [id number] PULMONARY [phone] [place] [address] Social History Tobacco Use Types Packs/Day Years Used Date Former Smoker Quit: 09/29/18 85 Smokeless Tobacco: Never Used Alcohol Use Standard Drinks/Week Comments Yes 1.7 (1 standard drink = 0.6 oz pure alco hol) Sex Assigned at Date Recorded Not on file documented as of this encounter Last Filed Vital Signs Vital Sign Reading Time Taken Comments Blood Pressure 127/58 04/06/2020 3:06 PM EDT Pulse 77 04/06/2020 3:06 PM EDT Temperature 37 ??C (98.6 ??F) 04/06/2020 3:06 PM EDT Respiratory Rate 18 04/06/2020 3:06 PM EDT Oxygen Saturation 98% 04/06/2020 3:06 PM EDT Inhaled Oxygen Concentration - - Weight 59.6 kg (131 lb 6.4 oz) 04/06/2020 3:06 PM EDT Height 153.7 cm (5' 0.51) 04/06/2020 3:06 PM EDT Body Mass Index 25.23 04/06/2020 3:06 PM EDT documented in this encounter Progress Notes Emma Gomez MD - 04/06/2020 3:00 PM EDT Images from the original note were not included. [facility] Section of Pulmonary and Critical Care Medicine Follow-Up Visit Date of Encounter: 04/06/2020 Location: Office Referring Provider: ALEXANDRE Holcomb [address] [place] [address] Pulmonary Problem List: ?? 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 Airway hyperreactivity - started Advair HFA (February 2020) Interval History: Mandy presents for follow-up of bronchiectasis and MAC infection. She is currentlybeing treated with azithromycin, rifampin, and ethambutol. Our last visit was in mid February, at which time she was having problems with wheezing and exertional dyspnea. She reported previous experience with Advair as an effective therapy. Notably, she told me that Symbicort HFA had caused lightheadedness and a general feeling of being unwell. I prescribed Advair HFA 115-21, 2 puffs inhaled twice daily. We reviewed a chest CT scan that had been performed in late January. The study was essentially unchanged from a study performed in June 2019. Today, Mandy says that the Advair HFA has worked very well to mitigate wheezing and dyspnea. She submitted a sputum sample to [facility] on December 31, 2019. This was smear negative and had not grown any NTM as of February 29, 2020. She had safety monitoring labs done at the same institution on April 05, 2020. CBC with differential was unremarkable. A comprehensive metabolic panel was also within normal limits. She reports that her sleep quality is good. She has been using CPAP without difficulty. Mucolytic Medications Being Used: Patient does not use nebulized hypertonic saline. Patient does not use nebulized dornase manuel (Pulmozyme). Airway Clearance Modalities Being Used: Not using any airway clearance modalities Current Respiratory Medications: Fluticasone/salmeterol (Advair HFA 115/21), 2 puffs or inhalations by mouth, every twelve (12) hoursscheduled Past Medical History: Past Medical History: Diagnosis Date ??? Chronic airflow obstruction 04/17/2019 ??? [facility] arthritis 08/18/2013 ??? Diverticulosis 04/17/2019 ??? History of insomnia 04/17/2019 ??? History of paroxysmal supraventricular tachycardia 04/17/2019 ??? Hypothyroidism 04/17/2019 ??? Migraine headache 04/17/2019 ??? Mild obstructive sleep apnea treated with continuous positive airway pressure (CPAP) 04/17/2019 ??? Mixed anxiety and depressive disorder 04/17/2019 ??? 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 Osteopenia 04/17/2019 ??? Thyroid disease Past Surgical History: Past Surgical History: Procedure Laterality Date ??? BRONCHOSCOPY Bilateral 07/03/2017 Dr. Dolores Villalobos ([place]) - MAC/LMA ??? BRONCHOSCOPY Bilateral 10/01/2018 Dr. Dolores Lewis) - MAC/LMA ??? SECTION ??? CT BIOPSY-THYROID ??? HEMICOLECTOMY indicated for diverticulosis ??? PRO COLONOSCOPY, DIAGNOSTIC 02/24/2013 COLONOSCOPY, DIAGNOSTIC performed by Tejinder Armando MD at [facility] ENDOSCOPY ??? TONSILLECTOMY AND ADENOIDECTOMY Updated Social History: Current Medications: Medications 02/27/20 0950 Medication Sig Taking? fluticasone propion-salmeteroL (Advair HFA) 115-21 mcg/actuation HFA Aerosol Inhaler Inhale 2 puffs into the lungs 2 times daily. Use spacer. Rinse mouth with water after each use to prevent fungal infection (thrush). Premarin 0.625 mg/gram Cream albuterol (Ventolin HFA) 90 mcg/actuation HFA Aerosol Inhaler Inhale 2 puffs into the lungs every morning. Prior to Arikayce dose. azithromycin (Zithromax) 250 mg Tablet Take 1 tablet by mouth daily. ethambutol (Myambutol) 400 mg Tablet Take 2 tablets by mouth daily. rifAMPin (Rifadin) 300 mg Capsule Take 2 capsules by mouth daily. SUMAtriptan (IMITREX) 100 mg Tablet diazePAM (VALIUM) 5 mg Tablet 5 mg. venlafaxine (EFFEXOR-XR) 37.5 mg Capsule, Sust. Release 24 hr daily. omeprazole (PRILOSEC) 40 mg Capsule, Delayed Release(E.C.) Take 1 capsule by mouth daily. ibuprofen (ADVIL;MOTRIN) 800 mg Tablet Take 1 tablet by mouth 3 times daily as needed. temazepam (RESTORIL) 15 mg capsule Take 7.5 mg by mouth nightly as needed. tretinoin (RETIN-A) 0.05 % cream Apply topically nightly. Physician will not do prior authorization Patient not taking: Reported on 04/14/2019 cyanocobalamin, vitamin B-12, 100 mcg tablet Take 100 mcg by mouth daily. Adverse Drug Reactions: Allergies Allergen Reactions ??? Arikayce [Amikacin Liposomal-Neb.Accessr] Other (See Comments) Severe shortness of breath (initial treatment and re-challenge) ??? Biaxin [Clarithromycin] Other (See Comments) Triggered SVT. ??? Naproxen Sodium Other (See Comments) facial swelling ??? Oxycodone Hcl Nausea And Vomiting ??? Pentazocine-Naloxone Other (See Comments) rapid HR ??? Propoxyphene Hcl Other (See Comments) facial swelling Review of Systems: Review of Systems Constitutional: Positive for other (No night sweats). Negative for anorexia, fever, malaise/fatigue,chills and sleep disturbance. Respiratory: Positive for cough and sputum decrease. Negative for wheezing and hemoptysis. Gastrointestinal: Negative for GERD and trouble swallowing. HENT: Negative for sinus pressure and postnasal drip. All other systems reviewed and are negative. Physical Examination: BP 127/58, HR 77, TC 98.6 ??F, RR 18, SPO2 98% on room air, weight 59.6 kg (stable). GENERAL APPEARANCE: Well-appearing, no acute respiratory distress, normal vocal character HEENT: Anicteric sclerae, nasal mucosa is moist, nasal septum intact, normal conjunctivae NECK: Supple, no lymphadenopathy or thyromegaly CHEST: Few distant inspiratory crackles bilaterally in mid lung zones posteriorly. No wheezing. HEART: Regular rhythm, no gallop or murmur. ABDOMEN: Soft, non-tender, non-distended, active bowel sounds, no organomegaly. EXTREMITY: No digital clubbing, cyanosis, or peripheral edema. SKIN: No psoriasiform or eczematous lesions. PSYCH: Good eye contact, engaged in conversation, not anxious. IMAGING: No interval thoracic imaging. SPIROMETRY: PFT Results Office Visit from 04/17/2019 in Pulmonology at [facility] PFT Results FEV1 (L) 1.39 liters FEV1 (%) 76 FVC (L) 2.29 liters FVC (%) 97 FEF 25-75 (L) 0.62 FEF 25-75 (%) 39 FEV1/FVC (absolute) 0.61 FEV1/FVC (%) 60.7 % Additional PFT Data (if needed) Uncorrected DLCO (ml/min/mm Hg) 17.1 DLCO (%) 101 % Interpretation Obstruction, Normal diffusion [Mild obstruction] CULTURES: Lab Results Component Value Date ACIDFASTSTN No Acid Fast Bacilli seen 06/10/2019 AFBCX 06/10/2019 No Acid Fast Bacilli isolated If active tuberculosis is suspected, the patient should be on AIRBORNE PRECAUTIONS. Call Infection Prevention for assistance if needed. PERTINENT LABS: Metabolic Parameters Lab Results Component Value Date NA 140 04/14/2019 K 4.0 04/14/2019 CL 99 04/14/2019 CO2 30 04/14/2019 ANIONGAP 11 04/14/2019 BUN 12 04/14/2019 CREATININE 0.67 (L) 04/14/2019 GLUCOSE 106 04/14/2019 CALCIUM 10.4 04/14/2019 MAGNESIUM 0.95 12/24/2010 Hematologic Parameters Lab Results Component Value Date WBC 7.5 04/14/2019 NEUTOPHILPCT 53.2 04/14/2019 IMMGRANPCT 0.30 04/14/2019 LYMPHOPCT 35.8 04/14/2019 MONOPCT 6.8 04/14/2019 BASOPCT 0.4 04/14/2019 EOSPCT 3.5 04/14/2019 HGB 15.0 04/14/2019 HCT 46.2 (H) 04/14/2019 RBC 5.24 (H) 04/14/2019 MCV 88.2 04/14/2019 MCHC 32.5 04/14/2019 RDWSD 43.0 04/14/2019 PLATELET 306 04/14/2019 LFT and Associated Parameters Lab Results Component Value Date AST 16 04/14/2019 ALT 13 04/14/2019 ALKPHOS 77 04/14/2019 BILITOT 0.3 04/14/2019 BILIDIR 0.1 12/24/2010 ALBUMIN 4.7 04/14/2019 Coagulation Parameters Diabetes Laboratory Tests Immunology Laboratory Tests Impression / Plan of Care: Problem List Items Addressed This Visit Chronic airflow obstruction Mandy has responded well to Advair HFA for treatment of airway hyperreactivity in the context of mild chronic airflow obstruction caused by bronchiectasis. We will continue the Advair HFA 115-21, 2 puffs inhaled twice daily. I provided her with an AeroChamber today and instructed her in its use with the Advair HFA and albuterol HFA inhalers. She should get repeat PFTs at her next NTM clinic visit. Iordered these today. 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 If she has difficulty producing sputum, I stand prepared to do a bronchoscopy withBAL to obtain definitive lower respiratory tract cultures. Recent safety monitoring laboratory studies look good. EKG in the office today showed a QTC of 433 ms (acceptable). Relevant Orders Pulmonary Function Testing Follow-up: 3 months in NTM clinic with Drs. Sheriff and Patricia; PFTs prior to that visit. EMMA GOMEZ MD 04/06/2020 12:48 PM documented in this encounter Miscellaneous Notes Assessment & Plan Note - Emma Gomez MD - 04/07/2020 8:13 AM EDTAssociated Problem(s): Chronic airflow obstruction Mandy has responded well to Advair HFA for treatment of airway hyperreactivity in the context of mild chronic airflow obstruction caused by bronchiectasis. We will continue the Advair HFA 115-21, 2 puffs inhaled twice daily. I provided her with an AeroChamber today and instructed her in its use with the Advair HFA and albuterol HFA inhalers. She should get repeat PFTs at her next NTM clinic visit. I ordered these today. 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 If she has difficulty producing sputum, I stand prepared to do a bronchoscopy with BAL to obtain definitive lower respiratory tract cultures. Recent safety monitoring laboratory studies look good. EKG in the office today showed a QTC of 433 ms (acceptable). documented in this encounter Plan of Treatment Upcoming Encounters Date Type Specialty Care Team Description 02/24/2023 Hospital Encounter Gastroenterology Cristofer Armando MD [facility] DR GASTROENTEROLOGY [place], [place] [address] (Wo rk) Scheduled Procedures Name Priority Associated Diagnoses Date/Time COLONOSCOPY, DIAGNOSTIC H/O DIVERTICULITIS 10 DIALLO RVEILLANCE documented as of this encounter Visit Diagnoses Diagnosis Nodular bronchiectatic pulmonary Mycobac terium avium complex (MAC) infection Pulmonary diseases due to other mycobact eria Chronic obstructive pulmonary disease, u nspecified COPD type documented in this encounter Care Teams Security Operations Engineer Relationship Specialty Start Date End Date Tony Fuller PA PCP - General Family Medicine 04/06/20 [address] [place] [address] documented as of this encounter
--- OUTSIDE RECORDS SUMMARY | 2022-02-08 09:07 | XMS_ITS | Encounter Summary ---
:1945 Author Organization [facility] [place] [address] Care Team Providers Name Role Phone Tony Fuller Primary Care Provider Encounter Details Date Type Department Care Team Description 09/27/2020 Orders Only Infectious Disease Clara Sheriff Myco bacterium avium at [facility] [place] [place] MD [place] infection [facility] [place], [place] [address] [place] [address] [phone] (Wo rk) Social History Tobacco Use Types Packs/Day Years Used Date Former Smoker Quit: 09/29/18 85 Smokeless Tobacco: Never Used Alcohol Use Standard Drinks/Week Comments Yes 1.7 (1 standard drink = 0.6 oz pure alco hol) Sex Assigned at Date Recorded Not on file documented as of this encounter Plan of Treatment Upcoming Encounters Date Type Specialty Care Team Description 02/24/2023 Hospital Encounter Gastroenterology Cristofer Armando MD [facility] GASTROENTERIMANI [place], [place] [address] (Wo rk) Scheduled Procedures Name Priority Associated Diagnoses Date/Time COLONOSCOPY, DIAGNOSTIC H/O DIVERTICULITIS 10 DIALLO RVEILLANCE documented as of this encounter Visit Diagnoses Diagnosis Mycobacterium avium infection Pulmonary diseases due to other mycobact eria documented in this encounter Care Teams House Manager Relationship Specialty Start Date End Date Tony Fuller PA PCP - General Family Medicine 04/06/20 [address] [place] [address] documented as of this encounter
--- OUTSIDE RECORDS SUMMARY | 2022-02-08 09:07 | XMS_ITS | Encounter Summary ---
:1945 Author Organization [facility] [place] [address] Care Team Providers Name Role Phone Tony Fuller Primary Care Provider Encounter Details Date Type Department Care Team Description 08/30/2020 TH Visit Infectious Disease Genna Sheriff Myco bacterium avium (TeleHealth) at [facility] [place] infection [place], [place] [address] [place] [address] [phone] Social History Tobacco Use Types Packs/Day Years Used Date Former Smoker Quit: 09/29/18 85 Smokeless Tobacco: Never Used Alcohol Use Standard Drinks/Week Comments Yes 1.7 (1 standard drink = 0.6 oz pure alco hol) Sex Assigned at Date Recorded Not on file documented as of this encounter Progress Notes Genna Sheriff MD - 08/30/2020 1:30 PM EST ID Outpatient Follow Up - Nontuberculous Mycobacterial (NTM) Infection Identification: Chronic cough, recurrent MAC infection Relevant history: Mandy Foreman is a 74 y.o. female previous smoker (quit 1984), with a history of recurrent respiratory infections, bronchiectasis, and ROSY, who had MAC identified through 02/11/2007 bronch. She underwent treatment for MAC [id number] with guidelines-based triple antibiotics. She had improved CT and symptomatic response (weight gain, reduced rare cough, decreased frequency of bronchitis), with course complicated by small volume hemoptysis and PSVT. At one year, she underwent bronch which was AFB negative, then took another 6m therapy for total 18m. Unfortunately in December 2016, she began to lose weight, experience increased fatigue, no F/C/NS, mild MUNGUIA, but still had no sustained cough. Repeat CT 06/25/2017 showed bronchiectatic disease and nodular opacities in her upper lobes and then repeat bronch 07/03/2017 showed relapse with smear negative culture positive MAC. About October 2017, she was restarted on the same [id number] TIW therapy, with another episode of PSVT on clarithromycin for which she was switched to azithromycin. But she did not respond as evidenced by repeat CT 10/01/2018 which showed unchanged bilateral upper lobe bronchiectasis with small scattered irregularopacities, and repeat bronch 10/01/2018 showed a few Aspergillus fumigatus, NURF and again smear negative MAC with repeated DST (below). PFTs 04/06/2019 showed worsening obstruction to FEV1 72%. She transferred care here on 04/14/2019. We set her up for intensified airway clearance and Aricayse which shestarted 04/29/19 but had to stop after a few weeks because of cough. We intensified her regimen by moving to daily [id number] (~Jul 2017 but overall retreatment start October 2017). CT on 02/04/2020 formal interpretation available in scanned docs showing stable disease, especially in RML and lingula. Interval Since last seen 06/28/20 at which time I show I suggested she stop therapy. She has been off the antibiotics for 5 weeks. She notes that her sleeping is better. Still no cough and no signs of infectionlike fevers or NS or weight loss (put on a pound or two). She has coughed a few times and could haveproduced sputum but did not have a cup nearby. She now will make sure she will have her sputum cups nearby. Her energy is pretty good. Due to see me and Pulm 09/14 and consideration of bronch sampling. ROS Otherwise negative Physical Exam Not examined. SOC Move to smaller house in same town completed Scanned doc monitoring labs reviewed. Baseline labs: Lab Results Component Value Date WBC 7.5 04/14/2019 RBC 5.24 (H) 04/14/2019 HGB 15.0 04/14/2019 HCT 46.2 (H) 04/14/2019 MCV 88.2 04/14/2019 MCH 28.6 04/14/2019 MCHC 32.5 04/14/2019 PLATELET 306 04/14/2019 RDWCV 13.3 04/14/2019 Lab Results Component Value Date NA 140 04/14/2019 K 4.0 04/14/2019 CL 99 04/14/2019 CO2 30 04/14/2019 Lab Results Component Value Date BUN 12 04/14/2019 CREATININE 0.67 (L) 04/14/2019 Lab Results Component Value Date ALT 13 04/14/2019 AST 16 04/14/2019 ALKPHOS 77 04/14/2019 BILITOT 0.3 04/14/2019 Microbiology: Date Smear Culture Comments 2006 ? MAC 2008 neg neg By her report 07/03/2017 neg MAC DST above 06/10/2019 neg neg December 31 2019 neg neg [facility] - scanned doc 10/01/2018:clarithromycin JENNIFER 1 (S), AMK 8, LZD 16 (I), EMB 4, RMP 4, RFB <0.25 Other Studies: She had a CCT 02/04/2020 showing stable (in storage) and previous to that 06/15/2019: IMPRESSION 1. 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 2. Otherwise, similar findings of bilateral tree-in-bud opacities with mild bronchiectasis and bronchial wall thickening. ?? Impression: Mandy Foreman is a 74 y.o. female with relapsed macrolide-sensitive smear negative nodular bronchiectatic MAC disease. She was first treated appropriately [id number], and now on nearly 3 years of triple therapy (moved from TIW to daily on Jul 2017) for probable new infection. She did not tolerate Aricayse but she overall endorses excellent symptomatic and apparent microbiologic response and radiographic stability. She apears to have converted at least by 06/10/2019, so she is beyond 12 months presumed negative. She stopped therapy 06/28/20 but expected to have a bronch to prove micro con version. So today we discussed strategies. She in fact thinks she may be able to get a spontaneous sputum (and we talk through what if neg and what if pos), but if not, when we meet on 09/14, we can again discuss a monitoring strategy. I think best would be, now 5 weeks off therapy, to check a CT at 6m post therapy, to document stability which would suggest very unlikely residual disease. If new nodules etc, then I would do a bronch then to get a new specimen which would be sent for DST and essentially a new intensive regimen vs suppressive therapy. Will discuss also with Dr. Gomez. Her first COVID vaccine was Aug 11 and she is due for her second 09/09. and that the vaccine will notimmediately negate the need for continued social distancing and other community mitigation strategies. Recommendations: ?? Remain off MAC therapy: ?? We discussed that over months or even years she may relapse or become reinfected. She knows symptoms of concern. ?? She will try to get an expectorated specimen ?? Will discuss together other strategies for monitoring at our follow up 09/[address] Gomez (suchas bronch now or CT at 6m with bronch if NTM changes) ?? Will call if develops new symptoms or has questions before then. ?? Second COVID vaccine 09/09 ?? CC Murphy Rivas MD Section of Infectious Disease and International Health [phone] minutes were spent in this TOV encounter, during which 20 minutes was spent counseling about NTM infection, treatment, medication side effects and prognosis. All of the patient's questions were answered. documented in this encounter Plan of Treatment Upcoming Encounters Date Type Specialty Care Team Description 02/24/2023 Hospital Encounter Gastroenterology Cristofer Armando MD [facility] [place] [address] (Wo rk) Scheduled Procedures Name Priority Associated Diagnoses Date/Time COLONOSCOPY, DIAGNOSTIC H/O DIVERTICULITIS 10 DIALLO RVEILLANCE documented as of this encounter Visit Diagnoses Diagnosis Mycobacterium avium infection Pulmonary diseases due to other mycobact eria documented in this encounter Care Teams Collision Repair Technician Relationship Specialty Start Date End Date Tony Fuller PA PCP - General Family Medicine 04/06/20 [address] [place] [address] documented as of this encounter
--- OUTSIDE RECORDS SUMMARY | 2022-02-08 09:07 | XMS_ITS | Encounter Summary ---
:1945 Author Organization [facility] [place] [address] Care Team Providers Name Role Phone Tony Fuller Primary Care Provider Reason for Visit Consultation (Routine) - Closed Specialty Diagnoses / Procedures Referred By Contact Refer red To Contact Rheumatology Diagnoses Pain in unspecified joint Raised antibody titer Tony Fuller, [facility] 5c PA [address] [address] [place] [address] Referral ID Status Reason Start Date Expiration Date Visits V isits Requested Authorized [id number] Closed Consult, Test 12/05/2020 12/05/2021 12 [facility] PCP Updated and/or Approved Encounter Details Date Type Department Care Team Description 01/10/2021 TH Visit Rheumatology at [facility] Srini Harper, Positive GINA (antinuclear an tibody) (Primary Dx); (TeleHealth) [facility] DO Bilateral ankle pain, unspecified chroni city; [facility] [place] [address] CENTER [phone] RHEUMATOLOGY [place], [place] [address] Social History Tobacco Use Types Packs/Day Years Used Date Former Smoker Quit: 09/29/18 85 Smokeless Tobacco: Never Used Alcohol Use Standard Drinks/Week Comments Yes 1.7 (1 standard drink = 0.6 oz pure alco hol) Sex Assigned at Date Recorded Not on file documented as of this encounter Progress Notes Srini Harper, - 01/10/2021 2:45 PM EDT Rheumatology Outpatient Consultation Note - Video Visit Reason for Consult: The patient is seen at the request of ALEXANDRE Randall for evaluation and treatment of joint pain and positive GINA. History of Present Illness: Mandy Foreman is a 75 y.o. female who presents today for evaluation of joint pain and positive GINA. Mandy explains that she has developed bilateral ankle pain and stiffness over the past 6 months, which was different than her other aches and pains. Her Mother had RA diagnosed at age 75 and because ofthis she was concerned she could be developing RA. Her feet are also affected. No swollen joints. Stiffness in the morning affects the legs, ankles and feet and improves throughout the day with activity. Her pain is sporadic and does not occur every day. She feels fine while exercising and stays active with cycling, walking, and skiing. 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 She has right hip pain worse when sleeping, no painwith ambulation. Mandy is also concerned about her fatigue which has been worse the past 8 months. Sh was diagnosed with MAC infection in the early and has been treated twice for it, last treatment was recent. She still feels short of breath at times. ROS: Dry eyes - after cataract surgery, eye drops help All systems reviewed and are negative except as above and in HPI PMHx - Mycobacterium avium complex Family Hx: M: RA Social Hx - no tobacco, intermittent alcohol Physical Examination: Vitals deferred Exam limited - general: NAD pleasant. Psych: appropriate mood and affect, linear thought process, good insight Laboratory Data: 11/2020 - ESR normal - CRp 1.49 mg/L - CCP negative - GINA 1:80 - Tick borne illness panel negative Impression: Mandy Foreman is a 75 y.o. 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 Mandy's history is the most consistent with osteoarthritis, and she does not have symptoms concerning for an inflammatory arthritis such as rheumatoid arthritis or for a connective tissue disease. No further rheumatologic work up is necessary, and we discussed using topical voltaren gel OTC for her feet/ankles. The elevated CRP is not specific, and is unlikely to represent a rheumatologic process. This may be related to her chronic MAC infection, however malignancy screening should be updated as cancer may present with elevated markers of inflammation as well. Recommendations: No further rheumatologic work up indicated Please be sure that age-appropriate malignancy screening is up to date as elevated inflammatory markers may be due to underlying malignancies. Voltaren gel OTC as needed for feet and ankles RTC as needed Thank you for involving me in the care of Mandy Foreman. If you have additional questions or if I can be of further assistance, please do not hesitate to contact me. Srini Harper DO [facility] Rheumatology 60 minutes were spent on face to face care, chart review, and documentation today CC: ALEXANDRE Holcomb documented in this encounter Plan of Treatment Upcoming Encounters Date Type Specialty Care Team Description 02/24/2023 Hospital Encounter Gastroenterology Cristofer Armando MD [facility] DR GASTROENTEROLOGY [place], [place] [address] (Wo rk) Scheduled Procedures Name Priority Associated Diagnoses Date/Time COLONOSCOPY, DIAGNOSTIC H/O DIVERTICULITIS 10 DIALLO RVEILLANCE documented as of this encounter Visit Diagnoses Diagnosis Positive GINA (antinuclear antibody) - Pr imary Other and unspecified nonspecific immuno logical findings Bilateral ankle pain, unspecified chroni city Pain in both feet Pain in limb documented in this encounter Care Teams Blocker Hand Relationship Specialty Start Date End Date Tony Fuller PA PCP - General Family Medicine 04/06/20 [address] [place] [address] documented as of this encounter
--- OUTSIDE RECORDS SUMMARY | 2022-02-08 09:07 | XMS_ITS | Encounter Summary ---
:1945 Author Organization [facility] [place] [address] Care Team Providers Name Role Phone Tony Fuller Primary Care Provider Encounter Details Date Type Department Care Team Description 02/25/2020 Telephone Pulmonology at [facility] [place] [address] Social History Tobacco Use Types Packs/Day Years Used Date Former Smoker Quit: 09/29/18 85 Smokeless Tobacco: Never Used Alcohol Use Standard Drinks/Week Comments Yes 1.7 (1 standard drink = 0.6 oz pure alco hol) Sex Assigned at Date Recorded Not on file documented as of this encounter Miscellaneous Notes Telephone Encounter - Carol Boswell LNA - 02/25/2020 10:59 AM EDT LM for pt to call us back, Dr. Gomez asked if she could possibly do a telehealth appt tomorrow? documented in this encounter Plan of Treatment Upcoming Encounters Date Type Specialty Care Team Description 02/24/2023 Hospital Encounter Gastroenterology Cristofer Armando MD [facility] GASTROENTEROLOGY [place], [place] [address] (Wo rk) Scheduled Procedures Name Priority Associated Diagnoses Date/Time COLONOSCOPY, DIAGNOSTIC H/O DIVERTICULITIS 10 DIALLO RVEILLANCE documented as of this encounter Visit Diagnoses Not on filedocumented in this encounter Care Teams Assembler Garment Form Relationship Specialty Start Date End Date Tony Fuller PA PCP - General 09/29/13 03/01/20 [address] [place] [address] documented as of this encounter
--- OUTSIDE RECORDS SUMMARY | 2022-02-08 09:07 | XMS_ITS | Encounter Summary ---
:1945 Author Organization [facility] [place] [address] Care Team Providers Name Role Phone Tony Fuller Primary Care Provider Reason for Visit Reason Onset Date Comments Labs Only 09/12/2020 CF Sputum Culture Encounter Details Date Type Department Care Team Description 09/12/2020 Telephone Pulmonology at [facility] Poncho Rose Only (CF Sputum [facility] randolph Elkins) [place] [address] S, RN [phone] Social History Tobacco Use Types Packs/Day Years Used Date Former Smoker Quit: 09/29/18 85 Smokeless Tobacco: Never Used Alcohol Use Standard Drinks/Week Comments Yes 1.7 (1 standard drink = 0.6 oz pure alco hol) Sex Assigned at Date Recorded Not on file documented as of this encounter Miscellaneous Notes Telephone Encounter - Sue Rose RN - 09/12/2020 5:04 PM EST Rec'd call from Adilia NOGUERA [facility], notifying office that due to a computer error, there was no lab orders for patient's sample dropped off on . She requested a refax of orders. Faxed back Sputum Culture. Fax submission confirmation time stamped for 09/12/2020 @ 5822, 2 pages with coversheet. documented in this encounter Plan of Treatment Upcoming Encounters Date Type Specialty Care Team Description 02/24/2023 Hospital Encounter Gastroenterology Cristofer Armando MD [facility] DR GASTROENTEROLOGY [place], [place] [address] (Wo rk) Scheduled Procedures Name Priority Associated Diagnoses Date/Time COLONOSCOPY, DIAGNOSTIC H/O DIVERTICULITIS 10 DIALLO RVEILLANCE documented as of this encounter Visit Diagnoses Not on filedocumented in this encounter Care Teams Ivory Carver Relationship Specialty Start Date End Date Tony Fuller PA PCP - General Family Medicine 04/06/20 [address] [place] [address] documented as of this encounter
--- OUTSIDE RECORDS SUMMARY | 2022-02-08 09:07 | XMS_ITS | Encounter Summary ---
:1945 [place] [address] Care Team Providers Name Role Phone Tony Fuller Primary Care Provider Encounter Details Date Type Department Care Team Description 05/03/2021 Telephone [place] [address] Social History Tobacco Use Types Packs/Day [...] 02/24/2023 Hospital Encounter Gastroenterology Cristofer Armando MD [facility] DR GASTROENTEROLOGY [place], [place] [address] (Wo rk) Scheduled Procedures Name Priority Associated Diagnoses Date/Time COLONOSCOPY, DIAGNOSTIC H/O DIVERTICULITIS 10 DIALLO RVEILLANCE documented as of this encounter Visit Diagnoses Not on filedocumented in this encounter Care Teams Insole And Outsole Splitter Relationship Specialty Start Date End Date Tony Fuller PA PCP - General Family Medicine 04/06/20 [address] [place], [place] [id number] documented as of this encounter
--- OUTSIDE RECORDS SUMMARY | 2022-02-08 09:07 | XMS_ITS | Encounter Summary ---
:1945 Author Organization [facility] [place] [address] Care Team Providers Name Role Phone Tony Fuller Primary Care Provider Encounter Details Date Type Department Care Team Description 06/29/2021 TH Visit [place] [facility] Mayur James of Nodular bronchiect at pulmonary Mycobacterium avium complex (MAC) infection - finished therapy 06/2020; (TeleHealth) [facility] Frank Mast MD [facility] [phone] PULMONARY [phone] [place] [address] Social History Tobacco Use Types Packs/Day Years Used Date Former Smoker Quit: 09/29/18 85 Smokeless Tobacco: Never Used Alcohol Use Standard Drinks/Week Comments Yes 1.7 (1 standard drink = 0.6 oz pure alco hol) Sex Assigned at Date Recorded Not on file documented as of this encounter Progress Notes Frank James MD - 06/29/2021 8:30 AM EST Images from the original note were not included. [facility] Section of Pulmonary and Critical Care Medicine Outpatient Consultation Follow-up Date of Encounter: 06/28/2021 This was a [id number] office visit. PCP: ALEXANDRE Griffin Pulmonary Problem List: ?? 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 Diagnosed by bronchoscopy sample 02/11/2007 ?? Treated [id number] with triple ABx therapy > improved CT and symptoms ?? Recurrence December 2016 - weight loss, fatigue, no cough. CT 06/25/17 with bronchiectatic diseaes and nodular opacities in upper lobes > Bronchoscopy 07/03/17 smear negative, culture positive MAC ?? October 2017 - started [id number] c/b PSVT and changed clarithro to azithro. ?? April 2019 - worsened airflow obstruction and no improvement in imaging. Bronch 09/2018 had shown few aspergillus, NURF and smear negative MAC. Intensified airway clearance and Aricayse (04/29/19) though stopped due to cough ?? Intensified to daily [id number] ?? June 28, 2020 - stopped therapy ?? Airway hyperreactivity - started Advair HFA (February 2020); stopped in 2020 as no clear benefit and felt some lightheadedness Brief Summary Mandy Foreman is a 75 y.o. 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 See details above. She is followed in ID by Dr. Sheriff and formerly followed in Pulmonary Clinic by Dr. Gomez who has since left the practice. I last saw Ms. Foreman for our initial meeting on 02/01/21. At the time she reported doing well over the preceding months. Dyspnea with stair climbing unchanged. Walking 2 miles per day and skiing. Coughwas totally gone on treatment and since has had occasional non bothersome cough with sputum. She was not having fevers, chills, weight loss, or night sweats. Undergoing evaluation for fatigue. Had stopped Advair with no perceived benefit. I felt fatigue could be concern for relapse but she was not having other predominant symptoms that she had with active MAC in past. We planned to monitor symtpoms and repeat CT in March 2021 with plan to consider repeat sputum or bronchoscopic sampling if fatigue/CT worsening or recrudescence of prior purulent sputum, fever, weight loss, sweats. Given suppliesfor sputum sampling. Since last visit: -CT repeated on 02/06/21 at [facility] - unchanged from scan in September with scattered nodules, bronchiectasis and small areas of TIB which was also unchanged from the prior January 2020. Has had more energy over the last few weeks Today: She is feeling more energy now than several months ago. Did have evaluation for various possible contributors including autoimmune diseases, Lyme disease etc and no clear etiology was found. Did submita sputum sample about 3 weeks ago to [facility] - she is not aware of results and I have not received any notification as yet either. Has had a bit more sputum over the last few weeks. Feeling like she needsto cough a bit more as well, but certainly not nearly as bad as when she had known MAC. Cough is more often at night and when it occurs at night it is dry. Daytime cough, if occurs, may be productive of clear sputum on occasion. Symptoms at time of MAC diagnosis were extreme fatigue and significant weight loss and little cough.Has been gaining weight of late. No fevers or night sweats. Takes albuterol roughly ever 2-3 days ifshe feels a bit short of breath and finds this helpful. Pulmonary Medications: None Review of Systems: Respiratory review of systems noted above. Patient denies headaches, vision changes, recent fevers or chills, unexplained weight changes, abdominal pain, nausea, vomiting, diarrhea. Remainder of 11-point ROS negative unless otherwise stated in HPI. I reviewed the patient's documented past medical, surgical, family, and social history and made changes in the eletronic record where necessary. Current Medications: Current Outpatient Medications: ??? levothyroxine (Synthroid) 50 mcg Tablet, Take 50 mcg by mouth daily., Disp: , Rfl: ??? diazePAM (Valium) 10 mg Tablet, Take 10 mg by mouth nightly as needed., Disp: , Rfl: ??? Premarin 0.625 mg/gram Cream, Every 3 days, Disp: , Rfl: ??? albuterol (Ventolin HFA) 90 mcg/actuation HFA Aerosol Inhaler, Inhale 2 puffs into the lungs every morning. Prior to Arikayce dose., Disp: 1 Inhaler, Rfl: 1 ??? SUMAtriptan (IMITREX) 100 mg Tablet, Take 100 mg by mouth as needed., Disp: , Rfl: ??? venlafaxine (EFFEXOR-XR) 37.5 mg Capsule, Sust. Release 24 hr, Take 37.5 mg by mouth daily., Disp: , Rfl: ??? ibuprofen (ADVIL;MOTRIN) 800 mg Tablet, Take 1 tablet by mouth 3 times daily as needed., Disp: ,Rfl: Allergies: Allergies Allergen Reactions ??? Arikayce [Amikacin Liposomal-Neb.Accessr] Other (See Comments) Severe shortness of breath (initial treatment and re-challenge) ??? Biaxin [Clarithromycin] Other (See Comments) Triggered SVT. ??? Ergocalciferol (Vitamin D2) Muscle pain ??? Naproxen Sodium Other (See Comments) facial swelling ??? Oxycodone Hcl Nausea And Vomiting ??? Pentazocine-Naloxone Other (See Comments) rapid HR ??? Propoxyphene Hcl Other (See Comments) facial swelling Physical Examination: No vital signs were recorded due to this being a telemedicine visit. My limited physical examinationobtainable via video is below: General: Well-appearing, NAD HEENT: No scleral icterus Respiratory: No evident increased work of breathing or visible accessory muscle use, no visualized or audible coughing, speaking in full sentences easily Neurologic: Alert, oriented, and communicative. No facial asymmetry or dysarthria. Symmetric gaze. Pertinent Diagnostics - I personally reviewed the following with my comments included below: Labs: None new to review Microbiology: Date Smear Culture Comments 2006 ? MAC ?? 2008 neg neg By her report 07/03/2017 neg MAC DST above 06/10/2019 neg neg ?? December 31 2019 neg neg NR - scanned doc 09/03/20 neg neg Via phone call 10/01/2018: clarithromycin JENNIFER 1 (S), AMK 8, LZD 16 (I), EMB 4, RMP 4, RFB <0.25 Chest Imaging: CT Chest 02/06/21 - stable scattered areas of mild bronchiectasis, TIB, and nodules CT Chest wo 10/03/20 ([facility] - Report only) - appearance of lung lazaro unchanged from January 2020... nonew infiltrates or nodules Pulmonary Function Tests: Date FVC FVC % FEV1 FEV1 % FEV1/VC TLC TLC % DLCO DLCO% Comments 04/17/19 2.29 97 1.39 76 61 - - 17.12 101 My interpretation of most recent PFTs: Mild obstruction with normal diffusion. Diagnoses MAC - treated, relapsed, nodulal bronchiectatic, macrolide-sensitive Fatigue Impression: Overall, Ms. Foreman is doing well now 12 months after treatment for recurrent MAC. She was struggling with fatigue of unclear cause which has improved of late. She has occasional cough with clear mucous. With these symptoms I have low concern for recurrent MAC, but will have low threshold to re-evaluate if this changes. We will follow up on recently submitted sputum sample to [facility] to ensure negative smear and no growth to date. She has additional supplies if sputum production changes or worsens. CT in January is stable from a year prior. Recommendations: -Follow up on [facility] sputum sample from 3 weeks ago -We discussed a plan to continue monitoring symptoms -Any recrudescence of purulent sputum, fevers, weight loss, and night sweats should prompt additional sampling as well. If sputum is negative and these symptoms occur, will need to consider bronchoscopy and BAL to add confidence. -Follow up in clinic in 4 months. Call sooner should new questions or concerning symptoms arise. I spent 40 minutes on this encounter on 06/29/2021 including [id number] time, counseling, reviewing records, and documenting as detailed in my note above. Frank James MD [facility] Rn Women Servicessample supervisor Pulmonary [place] [address] [email or web address] documented in this encounter Plan of Treatment Upcoming Encounters Date Type Specialty Care Team Description 02/24/2023 Hospital Encounter Gastroenterology Cristofer Armando MD [facility] DR GASTROENTEROLOGY [place] [id number] (Wo rk) Scheduled Procedures Name Priority Associated Diagnoses Date/Time COLONOSCOPY, DIAGNOSTIC H/O DIVERTICULITIS 10 DIALLO RVEILLANCE documented as of this encounter Visit Diagnoses Diagnosis Histor of Nodular bronchiectatic pulmona ry Mycobacterium avium complex (MAC) infection - finished therapy 06/2020 Pulmonary diseases due to other mycobact eria Fatigue Other malaise and fatigue documented in this encounter Care Teams In House Counsel Relationship Specialty Start Date End Date Tony Fuller PA PCP - General Family Medicine 04/06/20 [address] [place] [address] documented as of this encounter
--- OUTSIDE RECORDS SUMMARY | 2022-02-08 09:07 | XMS_ITS | Encounter Summary ---
:1945 [place] [address] Care Team Providers Name Role Phone Tony Fuller Primary Care Provider Encounter Details Date Type Department Care Team Description 02/25/2020 Telephone Endocrinology at [facility] Vibha Kimbrough, [place] [address] Social History Tobacco Use Types Packs/Day Years Used Date Former Smoker Quit: 09/29/18 85 Smokeless Tobacco: Never Used Alcohol Use Standard Drinks/Week Comments Yes 1.7 (1 standard drink = 0.6 oz pure alco hol) Sex Assigned at Date Recorded Not on file documented as of this encounter Miscellaneous Notes Telephone Encounter - Vibha Kimbrough, [facility] - 02/25/2020 1:31 PM EDT GAP Customer Relations Assistant Pre-Telemedicine Phone Note [x] Patient not reached [] Patient reached and the following information was reviewed/obtained per protocol: [] Confirmed patient name and date of [] Confirmed telemedicine jaqui (Vidyo and Virtual Visit) is downloaded and functioning [] Confirmed location of patient - TeleVisit is taking place in [] [place] [] [place] [] If not on [facility], working on signing up for [facility] [] Confirmed has completed any pre-visit questionnaires [] If has not received required pre-visit questionnaires, send via [facility] [] Reviewed patient medications [] Documented self-reported vitals: [] Weight: [] Height [] pulse recorded: [x] Other information or concerns LM asking Mandy to call us back documented in this encounter Plan of Treatment Upcoming Encounters Date Type Specialty Care Team Description 02/24/2023 Hospital Encounter Gastroenterology Cristofer Armando MD [facility] DR GASTROENTEROLOGY [place], [place] [address] (Wo rk) Scheduled Procedures Name Priority Associated Diagnoses Date/Time COLONOSCOPY, DIAGNOSTIC H/O DIVERTICULITIS 10 DIALLO RVEILLANCE documented as of this encounter Visit Diagnoses Not on filedocumented in this encounter Care Teams Manager Statistical Programming Relationship Specialty Start Date End Date Tony Fuller PA PCP - General 09/29/13 03/01/20 [address] [place] [address] documented as of this encounter
--- OUTSIDE RECORDS SUMMARY | 2022-02-08 09:07 | XMS_ITS | Encounter Summary ---
:1945 [place] [address] Care Team Providers Name Role Phone Tony Fuller Primary Care Provider Encounter Details Date Type Department Care Team Description 06/28/2020 TH Visit Infectious Disease Genna Sheriff monitoring encounter; (TeleHealth) at [facility] MD [place] Mycobacterium avium infection [place], [place] [address] [place] [address] [phone] Social History Tobacco Use Types Packs/Day Years Used Date Former Smoker Quit: 09/29/18 84 Smokeless Tobacco: Never Used Alcohol Use Standard Drinks/Week Comments Yes 1.7 (1 standard drink = 0.6 oz pure alco hol) Sex Assigned at Date Recorded Not on file documented as of this encounter Progress Notes Genna Sheriff MD - 06/28/2020 10:30 AM EST ID Outpatient Follow Up - Nontuberculous Mycobacterial (NTM) Infection Identification: Chronic cough, recurrent MAC infection Relevant history: Mandy Foreman is a 74 y.o. female previous smoker (quit 1984), with a history of recurrent respiratory infections, bronchiectasis, and ROSY, who had MAC identified through 02/11/2007 bronch and underwent treatment MAC [id number] with guidelines-based triple antibiotics. She had improved CT and symptomatic response (weight gain, reduced rare cough, decreased frequency of bronchitis), with course complicated by small volume hemoptysis and PSVT. At one year, she underwent bronch which was AFB negative, then took another 6m therapy for total 18m. Unfortunately in December 2016, she began tolose weight, experience increased fatigue, no F/C/NS, mild MUNGUIA, but still had no sustained cough. Repeat CT 06/25/2017 showed bronchiectatic disease and nodular opacities in her upper lobes and then repeat bronch 07/03/2017 showed relapse with smear negative culture positive MAC. About October 2017, shewas restarted on same [id number] TIW therapy, with another episode of PSVT on clarithromycin f or which she was switched to azithromycin. But she has not converted as evidenced by repeat CT 10/01/2018 which showed unchanged bilateral upper lobe bronchiectasis with small scattered irregular opacities. Repeat bronch 10/01/2018 showed a few Aspergillus fumigatus, NURF and again smear negative MAC with repeated DST (below). PFTs 04/06/2019 showed worsening obstruction to FEV1 72%. Her clinician in [place] left so she transferred care here on 04/14/2019. We set her up for intensified airway clearance and Aricayse which she started 04/29 but had to stop after a few weeks because of cough. We intensified her regimen by moving to daily [id number] (start date ~Jul 2017 but [place] treatment October 2017). She had a CT 02/04/2020 which did not have a formal interpretation at our last encounter. CTon 02/04/2020 formal interpretation available in scanned docs showing stable disease, especially in RML and lingula. Interval Since last seen 04/06/20. Still no cough and no signs of infection like fevers or NS or weight loss (put on a pound or two). Her energy is pretty good. Discovered that Advair is causing her migraines.She was not contacted by Pulmonary for scheduling bronch sampling. She has been tolerating azithro 500 qd and no recurrent troubles with sense of arrhythmias, following with Dr. Villeda in Cardiology. She is still also taking daily RMP and EMB. She is not noting any side effects from the meds. Had her eyes checked, and it was fine. No sense of arrhythmias. ROS Otherwise negative Physical Exam Not examined. [...] Date Smear Culture Comments 2006 ? 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 Her provider had obtained Aricayse for her, but announced he was leaving and withdrew the prior auth. She tried it through urgent engagement here, but was not able to take it. We intensified by changing from TIW to daily, and has had symptomatic and apparent microbiologic response and radiographic stability. She had a recent episode of increased SOB, and is working closely with Dr. Gomez, and doing well now. Given her improvement in symptoms, intolerance of Aricayse, and reluctance to try clofazimine, we will continue triple daily regimen. Duration is somewhat difficult to determine given her spotty sputum submission record, but she apears to have converted at least by 06/10/2019, so she is approaching 12 months presumed negative. Today we discussed that the patient has likely met criteria to end NTM therapy, 12 months of treatment beyond sputum conversion. This means the total duration of treatment with TIW to daily azithromycin, rifampin and ethambutol with a brief attempt with Aricayse October 2017 to June 2020. During this course the patient did not suffer any significant side effects, and showed microbiologic clearance May 2019, radiographic stability, and symptomatic improvement. We discussed that there is a significant chance that this infection or one like it might recur over the next months or years, and that often when MAC appears to relapse, genetic studies of the relapsing organism show it may be reinfection. S o it will be important to avoid exposure to such organisms (no hot tubs, reduced exposure to garden or potting soil dirt, no agricultural exposure, changing shower head with a filtered product) and maintaining good airway clearance such as by continuing to see Pulmonology. I described possible symptoms that should prompt re-evaluation (e.g., cough, fever, NS, weight loss occurring over months), and that I would be available for re-consultation. We discussed the importance of avoiding infection with SARS-COV-2 which causes COVID-19. Those olderthan 60 years and with lung diseases are more vulnerable to severe disease and even . So the patient agrees to stay home, avoid visits, and allow family and friends meet their needs through picking up prescriptions and groceries. We discussed that she will be a candidate for COVID-19 vaccine, likely within weeks. We discussed what is currently known of the vaccine candidates, likely strategies to access, and that the vaccine will not immediately negate the need for continued social distancing and other community mitigation strategies. She asked questions which I answered and my interpretation is she is not vaccine hesitant. Recommendations: ?? Discontinue weight based NTM therapy: ?? Azithromycin 500 mg qd ?? Ethambutol 800 mg qd ?? Rifampin 600 mg qd ?? Not tolerant of Aricayse ?? We discussed that over months or even years she may relapse or become reinfected. She knows symptoms of concern. ?? Will call if develops new symptoms or has questions. ?? CC Murphy Rivas MD Section of Infectious Disease and [facility] [email or web address] [phone] minutes were spent in this TOV encounter, during which 20 minutes was spent counseling about NTM infection, treatment, medication side effects and prognosis. All of the patient's questions were answered. documented in this encounter Plan of Treatment Upcoming Encounters Date Type Specialty Care Team Description 02/24/2023 Hospital Encounter Gastroenterology Cristofer Armando MD [facility] GASTROENTEROLOGY [place], [place] [address] (Wo rk) Scheduled Procedures Name Priority Associated Diagnoses Date/Time COLONOSCOPY, DIAGNOSTIC H/O DIVERTICULITIS 10 DIALLO RVEILLANCE documented as of this encounter Visit Diagnoses Diagnosis Medication monitoring encounter Encounter for therapeutic drug monitorin g Mycobacterium avium infection Pulmonary diseases due to other mycobact eria documented in this encounter Care Teams Cashier And Waiter/Waitress Relationship Specialty Start Date End Date Tony Fuller PA PCP - General Family Medicine 04/06/20 [address] [place] [address] documented as of this encounter
--- OUTSIDE RECORDS SUMMARY | 2022-02-08 09:07 | XMS_ITS | Encounter Summary ---
:1945 Author Organization [facility] [place] [address] Care Team Providers Name Role Phone Tony Fuller Primary Care Provider Encounter Details Date Type Department Care Team Description 09/21/2020 Orders Only Infectious Disease at [facility], [place] cobacterium avium [facility] [place] [place] [id number] Social History Tobacco Use Types Packs/Day Years [...] Gastroenterology Cristofer Armando MD [facility] DR GASTROENTEROLOGY [place], [place] [address] (Wo rk) Scheduled Procedures Name Priority Associated Diagnoses Date/Time COLONOSCOPY, DIAGNOSTIC H/O DIVERTICULITIS 10 DIALLO RVEILLANCE documented as of this encounter Visit Diagnoses Diagnosis Mycobacterium avium infection Pulmonary diseases due to other mycobact eria documented in this encounter Care Teams Pinking Machine Operator Relationship Specialty Start Date End Date Tony Fuller PA PCP - General Family Medicine 04/06/20 [address] [place] [address] documented as of this encounter
--- OUTSIDE RECORDS SUMMARY | 2022-02-08 09:07 | XMS_ITS | Encounter Summary ---
:1945 Author Organization [facility] [place] [address] Care Team Providers Name Role Phone Tony Fuller Primary Care Provider Encounter Details Date Type Department Care Team Description 10/21/2019 TH Visit Pulmonology at [facility] Emma Gomez, Nodular bronchiectatic pulmo nary Mycobacterium avium complex (MAC) infection; (TeleHealth) [facility] Mild obstructive sleep apnea treated wit h continuous positive airway pressure (CPAP); [facility] History of paroxysmal suprav entricular tachycardia; [place], [place] CENTER Chronic obstructive pulmonary disease, u nspecified COPD type [id number] PULMONARY [phone] [place] [address] Social History Tobacco Use Types Packs/Day Years Used Date Former Smoker Quit: 09/29/18 84 Smokeless Tobacco: Never Used Alcohol Use Standard Drinks/Week Comments Yes 1.7 (1 standard drink = 0.6 oz pure alco hol) Sex Assigned at Date Recorded Not on file documented as of this encounter Progress Notes Emma Gomez MD - 10/21/2019 1:00 PM EDT Images from the original note were not included. MEDICINE Section of Pulmonary and Critical Care Medicine Telephone Visit Date of Visit: 10/21/2019 Time of Visit: 12:58 PM Has the patient provided verbal consent to have today's telephone visit? Yes Does the patient understand that he/she and/or his/her health insurance plan may receive a bill for this visit? Yes Medication List Reconciled with Patient? Yes Medication Allergy/Adverse Drug Reaction List Reconciled with Patient? Yes Added Arikayce (shortness of breath) and Biaxin (likely trigger of SVT) Interval History: Mnady is a 74-year-old woman with bronchiectasis and nodular bronchiectatic MAC infection. Last visit was in April 2019 to establish care. She is currently being treated with azithromycin, rifampin, and ethambutol. She has mild airflow obstruction on spirometry as of our last visit. Since our last visit, she tried Arikayce (April 2019). Unfortunately the trial was short lived. She tolerated Arikayce for ~1 week; had severe shortness of breath; Rx with prednisone (helpful); got better; re-tried 2-3 weeks later, had shortness of breath right away. She did not have any hypophonia, wheezing, or hemoptysis. In June 2019, she experienced an episode of paroxysmal SVT (symptomatic, not unprecedented) while she was taking azithromycin. EKG showed normal QTC, although it was obtained after the fact. Referred to local air bag curer. Today, Mandy says that she had ambulatory arrhythmia monitoring (sounds like Ziopatch) in July 2019 (?). She says that her air bag curer told her the study was unremarkable. She has subsequently been back on azithromycin and has not had any palpitations and/or lightheadedness. When I saw her in April 2019, I prescribed albuterol as pretreatment for the Arikayce. Although she stopped the Arikayce, she has continued to take albuterol before going on walks in AM (1.5 miles) -she has found that her breathing is easier with the bronchodilator on board. She does not report any sense of accelerated heart rate after taking albuterol. Had been downhill skiing this winter without chest tightness, wheezing, or unusual dyspnea. Mandy is not having any dysphagia or brash. She has not been taking omeprazole regularly. She says that she has it available, if she has any breakthrough symptoms. Regarding her obstructive sleep apnea, she established care with sleep medicine here at [facility] (Mateusz LynnAmber) in June 2019. No major changes to the regimen. Presently, Mandy says that she continues totake temazepam in the evening for insomnia. Effective. Sometimes takes diazepam for headache (controlled). She says that her energy level was good. She awakens after restful sleep. Denies limb movementproblems. Review of Systems: Review of Systems Constitution: Negative for chills, decreased appetite, fever, malaise/fatigue and weight loss. HENT: Positive for congestion (question of some post-nasal drip - not taking anything for it). Negative for hoarse voice. Eyes: Negative for visual disturbance. Cardiovascular: Negative for irregular heartbeat, leg swelling, orthopnea and paroxysmal nocturnal dyspnea. Respiratory: Negative for cough, hemoptysis, shortness of breath, snoring, sputum production and wheezing. Skin: Negative for rash. Gastrointestinal: Negative for anorexia, dysphagia and heartburn. Neurological: Negative for dizziness and light-headedness. Psychiatric/Behavioral: Negative for depression. The patient is not nervous/anxious. Allergic/Immunologic: Negative for environmental allergies. All other systems reviewed and are negative. Impression / Plan of Care: Problem List Items Addressed This Visit Chronic airflow obstruction We discussed her sensation of reduced breathlessness while walking in association with taking albuterol. It is possible that the bronchodilator is alleviating some degree of airflow obstruction that we documented in April 2019, thus alleviating dyspnea. I recommended that she try taking the albuterol 2-3 times a day instead of just once in the morning. She can evaluate whether she is generally less breathless throughout the day. If this is indeed the case, we could consider longer acting medications. Of note, she says that Symbicort HFA did not agree with her, so we may have to be thoughtful about using another ICS/LABA. Another possibility would be using Combivent Respimat. I asked Mandy to let me know whether she would want to try something a bit longer acting than albuterol. History of paroxysmal supraventricular tachycardia Mild obstructive sleep apnea treated with continuous positive airway pressure (CPAP) Mandy is now plugged in with [facility] sleep medicine. I asked her whether she had any questions or concerns related to her CPAP apparatus, and she has no unmet needs. There is follow-up scheduled in December 2019 in sleep medicine clinic. 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 She has not had any palpitations since the episode documented late last year. Thus, appears to be tolerating the azithromycin. No B symptoms. Very scant and infrequent sputum expectoration. We reviewed the role for surveillance sputum culture. Ideally, we would get a repeat sputum AFB culture this summer. I remain available for bronchoscopy to obtain definitivelower respiratory tract samples, if needed. She will meet with Dr. Sheriff today by telephone. Relevant Orders Pulmonary Function Testing Medication Changes / Refills Conducted Today: None. Follow-Up: I think that she should be seen in 3 to 4 months in pulmonary clinic. PFT prior. Counseling Statement: I spent >50% of this 30 minute visit counseling the patient about the following topics: Natural history of bronchiectasis; pharmacodynamics and pharmacokinetics of albuterol. Level of Service Codes (check one that applies) [] PRO ESTABLISHED PATIENT LEVEL 1 [01646] [] PRO ESTABLISHED PATIENT LEVEL 2 [90049] [] PRO ESTABLISHED PATIENT LEVEL 3 [97342] [x] PRO ESTABLISHED PATIENT LEVEL 4 [27387] [] PRO ESTABLISHED PATIENT LEVEL 5 [64263] EMMA GOMEZ MD 10/21/2019 12:54 PM documented in this encounter Miscellaneous Notes Assessment & Plan Note - Emma Gomez MD - 10/21/2019 1:51 PM EDTAssociated Problem(s): Chronic airflow obstruction We discussed her sensation of reduced breathlessness while walking in association with taking albuterol. It is possible that the bronchodilator is alleviating some degree of airflow obstruction that wedocumented in April 2019, thus alleviating dyspnea. I recommended that she try taking the albuterol 2-3 times a day instead of just once in the morning. She can evaluate whether she is generally lessbreathless throughout the day. If this is indeed the case, we could consider longer acting medications. Of note, she says that Symbicort HFA did not agree with her, so we may have to be thoughtful about using another ICS/LABA. Another possibility would be using Combivent Respimat. I asked Mandy to let me know whether she would want to try something a bit longer acting than albuterol. 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 She has not had any palpitations since the episode documentedlate last year. Thus, appears to be tolerating the azithromycin. No B symptoms. Very scant and infrequent sputum expectoration. We reviewed the role for surveillance sputum culture. Ideally, we would get a repeat sputum AFB culture this summer. I remain available for bronchoscopy to obtain definitive lower respiratory tract samples, if needed. She will meet with Dr. Sheriff today by telephone. Assessment & Plan Note - Emma Gomez MD - 10/21/2019 1:47 PM EDTAssociated Problem(s): Mild obstructive sleep apnea treated with continuous positive airway pressure(CPAP) Mandy is now plugged in with [facility] sleep medicine. I asked her whether she had any questions or concerns related to her CPAP apparatus, and she has no unmet needs. There is follow-up scheduled in December 2019 in sleep medicine clinic. documented in this encounter Plan of Treatment Upcoming Encounters Date Type Specialty Care Team Description 02/24/2023 Hospital Encounter Gastroenterology Cristofer Armando MD [facility] DR GASTROENTEROLOGY [place], [place] [address] (Wo rk) Scheduled Procedures Name Priority Associated Diagnoses Date/Time COLONOSCOPY, DIAGNOSTIC H/O DIVERTICULITIS 10 DIALLO RVEILLANCE documented as of this encounter Visit Diagnoses Diagnosis Nodular bronchiectatic pulmonary Mycobac terium avium complex (MAC) infection Pulmonary diseases due to other mycobact eria Mild obstructive sleep apnea treated wit h continuous positive airway pressure (CPAP) History of paroxysmal supraventricular t achycardia Personal history of other diseases of ci rculatory system Chronic obstructive pulmonary disease, u nspecified COPD type documented in this encounter Care Teams Observation Nurse Relationship Specialty Start Date End Date Tony Fuller PA PCP - General 09/29/13 03/01/20 [address] [place] [address] documented as of this encounter
--- OUTSIDE RECORDS SUMMARY | 2022-02-08 09:07 | XMS_ITS | Encounter Summary ---
:1945 [address] [facility] [place] [address] Care Team Providers Name Role Phone Tony Fuller Primary Care Provider Encounter Details Date Type Department Care Team Description 10/20/2019 Telephone Pul[place]ology at [facility] [place], [place] [address] Social History Tobacco Use Types Packs/Day [...] Armando MD [facility] DR GASTROENTEROLOGY [place], [place] [address] (Wo rk) Scheduled Procedures Name Priority Associated Diagnoses Date/Time COLONOSCOPY, DIAGNOSTIC H/O DIVERTICULITIS 10 DIALLO RVEILLANCE documented as of this encounter Visit Diagnoses Not on filedocumented in this encounter Care Teams Primary Care Md Relationship Specialty Start Date End Date Tony Fuller PA PCP - General 09/29/13 03/01/20 [address] [place], [place] [id number] documented as of this encounter
--- OUTSIDE RECORDS SUMMARY | 2022-02-08 09:07 | XMS_ITS | Encounter Summary ---
:1945 Author Organization [facility] [place] [address] Care Team Providers Name Role Phone Tony Fuller Primary Care Provider Encounter Details Date Type Department Care Team Description 11/07/2021 Ancillary Procedure Radiology Library at Grisel Fuller [facility] ALEXANDRE Mccall [id number] [place] [id number] [phone] Social History Tobacco Use Types Packs/Day Years [...] Encounter Gastroenterology Cristofer Armando MD [facility] GASTROENTEROLOGY [place], [place] [address] (Wo rk) Scheduled Procedures Name Priority Associated Diagnoses Date/Time COLONOSCOPY, DIAGNOSTIC H/O DIVERTICULITIS 10 DIALLO RVEILLANCE documented as of this encounter Procedures Procedure Name Priority Date/Time Associated Diagnosis Comme nts FILM LIBRARY Routine 11/07/2021 12:00 AM Results for this STORAGE ONLY CT EDT procedure ar ragini in CHEST the results section. documented in this encounter Results Film Library- Storage Only CT Chest (11/07/2021 12:00 AM EDT) Specimen (Source) Anatomical Location Collection Method / Collectio n Time Received Time / Laterality Volume Narrative [facility] - 11/08/2021 8:20 AM EDT This exam is auto-finalizing. It's purpo se is for storage only. Tony SCHROEDER IMG FILM LIBRARY ORDERABLES Performing Organization Address City/State/ZIP Code Phon e Number [place], [place] documented in this encounter Visit Diagnoses Not on filedocumented in this encounter Care Teams Drywall Finishing Foreman Relationship Specialty Start Date End Date Tony Fuller PA PCP - General Family Medicine 04/06/20 [address] [place] [address] documented as of this encounter
--- OUTSIDE RECORDS SUMMARY | 2022-02-08 09:07 | XMS_ITS | Encounter Summary ---
:1945 Author Organization [facility] [place] [address] Care Team Providers Name Role Phone Tony Fuller Primary Care Provider Encounter Details Date Type Department Care Team Description 01/27/2020 Telephone Infectious Disease a [facility] [address] Social History Tobacco Use Types Packs/Day [...] 02/24/2023 Hospital Encounter Gastroenterology Cristofer Armando MD [facility] GASTROENTEROLOGY [place], [place] [address] (Wo rk) Scheduled Procedures Name Priority Associated Diagnoses Date/Time COLONOSCOPY, DIAGNOSTIC H/O DIVERTICULITIS 10 DIALLO RVEILLANCE documented as of this encounter Visit Diagnoses Not on filedocumented in this encounter Care Teams Poster Relationship Specialty Start Date End Date Tony Fuller PA PCP - General 09/29/13 03/01/20 [address] [place], [place] [address] documented as of this encounter
--- OUTSIDE RECORDS SUMMARY | 2022-02-08 09:07 | XMS_ITS | Encounter Summary ---
:1945 Author Organization [place] [address] Care Team Providers Name Role Phone Tony Fuller Primary Care Provider Encounter Details Date Type Department Care Team Description 02/26/2020 Telephone Pulmonology at [facility] [place] [address] Social History Tobacco Use Types Packs/Day [...] 02/24/2023 Hospital Encounter Gastroenterology Cristofer Armando MD [facility] GASTROENTEROLOGY [place], [place] [address] (Wo rk) Scheduled Procedures Name Priority Associated Diagnoses Date/Time COLONOSCOPY, DIAGNOSTIC H/O DIVERTICULITIS 10 DIALLO RVEILLANCE documented as of this encounter Visit Diagnoses Not on filedocumented in this encounter Care Teams Market Risk Specialist Relationship Specialty Start Date End Date Tony Fuller PA PCP - General 09/29/13 03/01/20 [address] [place], [place] [id number] documented as of this encounter
--- OUTSIDE RECORDS SUMMARY | 2022-02-08 09:07 | XMS_ITS | Encounter Summary ---
:1945 Author Organization [facility] [place] [address] Care Team Providers Name Role Phone Tony Fuller Primary Care Provider Encounter Details Date Type Department Care Team Description 02/23/2020 Orders Only Pulmonary Murphy Gomez, Bronchiectasis without [facility] MD complication [facility] [id number] PULMONARY [phone] [place], [place] [address] Social History Tobacco Use Types [...] 02/24/2023 Hospital Encounter Gastroenterology Cristofer Armando MD [facility] ER GASTROENTERIMANI [place], [place] [address] (Wo rk) Scheduled Procedures Name Priority Associated Diagnoses Date/Time COLONOSCOPY, DIAGNOSTIC H/O DIVERTICULITIS 10 DIALLO RVEILLANCE documented as of this encounter Visit Diagnoses Diagnosis Bronchiectasis without complication Bronchiectasis without acute exacerbatio n documented in this encounter Care Teams Aerospace Manager Relationship Specialty Start Date End Date Tony Fuller PA PCP - General 09/29/13 03/01/20 [address] [place] [address] documented as of this encounter
--- OUTSIDE RECORDS SUMMARY | 2022-02-08 09:07 | XMS_ITS | Encounter Summary ---
:1945 Author Organization [facility] [place] [address] Care Team Providers Name Role Phone Tony Fuller Primary Care Provider Encounter Details Date Type Department Care Team Description 02/03/2021 Telephone [place] [facility] [place] [address] Social History Tobacco Use Types Packs/Day [...] Armando MD [facility] ER DR GASTROENTEROLOGY [place], [place] [address] (Wo rk) Scheduled Procedures Name Priority Associated Diagnoses Date/Time COLONOSCOPY, DIAGNOSTIC H/O DIVERTICULITIS 10 DIALLO RVEILLANCE documented as of this encounter Visit Diagnoses Not on filedocumented in this encounter Care Teams Government Services Professional Relationship Specialty Start Date End Date Tony Fuller PA PCP - General Family Medicine 04/06/20 [address] [place], [place] [phone] documented as of this encounter
--- OUTSIDE RECORDS SUMMARY | 2022-02-08 09:07 | XMS_ITS | Encounter Summary ---
:1945 Author Organization [facility] [place] [address] Care Team Providers Name Role Phone Tony Fuller Primary Care Provider Encounter Details Date Type Department Care Team Description 10/31/2021 Telephone Pulmonology at [facility] [place] [address] Social History Tobacco Use Types Packs/Day Years Used Date Former Smoker Quit: 09/29/18 84 Smokeless Tobacco: Never Used Alcohol Use Standard Drinks/Week Comments Yes 1.7 (1 standard drink = 0.6 oz pure alco hol) Sex Assigned at Date Recorded Not on file documented as of this encounter Miscellaneous Notes Telephone Encounter - Dianna Gomez - 10/31/2021 11:07 AM EDT [facility] scan as per Jacob guido documented in this encounter Plan of Treatment Upcoming Encounters Date Type Specialty Care Team Description 02/24/2023 Hospital Encounter Gastroenterology Cristofer Armando MD [facility] ER GASTROENTEROLOGY [place], [place] [address] (Wo rk) Scheduled Procedures Name Priority Associated Diagnoses Date/Time COLONOSCOPY, DIAGNOSTIC H/O DIVERTICULITIS 10 DIALLO RVEILLANCE documented as of this encounter Visit Diagnoses Not on filedocumented in this encounter Care Teams Guard Supervisor Relationship Specialty Start Date End Date Tony Fuller PA PCP - General Family Medicine 04/06/20 [address] [place] [address] documented as of this encounter
--- OUTSIDE RECORDS SUMMARY | 2022-02-08 09:07 | XMS_ITS | Encounter Summary ---
:1945 Author Organization [facility] [address] Care Team Providers Name Role Phone Tony Fuller Primary Care Provider Encounter Details Date Type Department Care Team Description 07/26/2021 [facility], ROSY on CPAP (TeleHealth) Road AIR BRAKE OPERATOR [address] [facility] [place] [address] [place], [place] [id number] [phone] (Wo rk) Social History Tobacco Use Types Packs/Day Years Used Date Former Smoker Quit: 09/29/18 85 Smokeless Tobacco: Never Used Alcohol Use Standard Drinks/Week Comments Yes 1.7 (1 standard drink = 0.6 oz pure alco hol) Sex Assigned at Date Recorded Not on file documented as of this encounter Last Filed Vital Signs Vital Sign Reading Time Taken Comments Blood Pressure - - Pulse - - Temperature - - Respiratory Rate - - Oxygen Saturation - - Inhaled Oxygen Concentration - - Weight 63.5 kg (140 lb) 07/25/2021 11:16 AM EST Height 154.9 cm (5' 1) 07/25/2021 11:16 AM EST Body Mass Index 26.45 07/25/2021 11:16 AM EST documented in this encounter Progress Notes Shahrzad Clark, AIR BRAKE OPERATOR - 07/26/2021 2:00 PM EST Sleep Medicine Telemedicine Follow-Up Note Patient is currently located at their [place] in [place]. Patient provided verbal consent prior to initiation of this encounter and expressed understanding that the telemedicine visit may be billed similar to a clinic visit. Telemedicine was utilized due to the ongoing public health emergency from the COVID-19 pandemic. CC: Ms. Mandy Foreman is a 75 y.o. female seen for telemedicine follow-up of obstructive sleep apnea. HPI: ROSY was diagnosed in March 2012 in [place]-Dr. Villalobos. ??Her initial AHI was 14.4 with mild hypoxemia (reed SPO2 of 85%). ??She has been treated with autoCPAP with settings of 7-11 cm. ??Her lastCPAP titration was in July 2018 in [place]. Treatment: CPAP-has not used CPAP since May Device: RM Pressure: 7.8 cm, reduced from 8 cm by patient Pressure Intolerance: feels too high Supplemental oxygen:no Interface/Mask: Nasal pillow Difficulty tolerating mask interface: it's OK Chin Strap: no HCC: KMP Update: Her usage has dropped off, she stopped using CPAP in May. It was uncomfortable, getting too much pressure. She also thinks the CPAP is malfunctioning. Having trouble getting PAP supplies. Humidity: yes Dry Mouth/Throat: no Symptoms: Patient-reported last 4 scores: [facility] 12/29/2019 06/27/2020 07/26/2021 [place] [facility] 3 (Low Risk) 2 (Low Risk) 3 (Low Risk) Snoring: Not on CPAP Nocturnal sleep quality improved: yes Daytime symptoms improved (Daytime sleepiness/fatigue): yes Naps: yes, a few times per week Involuntary Dozing: rarely Sleepiness or Drowsiness when driving: no Sleep Pattern: Bedtime: 9:3p Position: laterally Rise time: 7a Awakenings: 0 times, when using CPAP Card Data Download: Date Range: 04/25-07/23/21 Pressure: 7.8 cm Residual AHI: 0.9 95th% Leak: 15.9 Median Leak: 8.4 Average Usage (Days Used/Hours):4 hrs 37 min Days of usage: 27%, no use since Nov due to pressure intolerance % Days used > 4 hours: 17% Previous Card Data Download: Date Range: 03/15-06/12/20 Pressure: 7.8 cm , pt adjusted Residual AHI: 0.7 95th% Leak: 16.9 Median Leak: 8.1 Average Usage (Used/Hours): 4 hrs 15 min Days of usage: 85/90 94% % Days used > 4 hours: 50% Current Outpatient Medications: ??? omeprazole (PriLOSEC) 20 mg Capsule, Delayed Release(E.C.), , Disp: , Rfl: ??? atorvastatin (Lipitor) 20 mg Tablet, Take 20 mg by mouth daily., Disp: , Rfl: ??? levothyroxine (Synthroid) 50 mcg Tablet, Take [...] 3 times daily as needed., Disp: ,Rfl: Active Ambulatory Problems Diagnosis Date Noted ??? Rosacea 01/22/2011 ??? Telangiectasia 01/22/2011 ??? Seborrheic keratosis 08/18/2012 ??? Inflamed seborrheic keratosis 11/28/2012 ??? CMC arthritis 08/18/2013 ??? Nodule of finger - right long and left ring 08/18/2013 ??? Chronic airflow obstruction 04/17/2019 ??? 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 Hypothyroidism 04/17/2019 ??? History of paroxysmal supraventricular tachycardia 04/17/2019 ??? Mixed anxiety and depressive disorder 04/17/2019 ??? Mild obstructive sleep apnea treated with continuous positive airway pressure (CPAP) 04/17/2019 ??? Migraine headache 04/17/2019 ??? Diverticulosis 04/17/2019 ??? Osteopenia 04/17/2019 ??? History of insomnia 04/17/2019 ??? Fatigue 04/17/2019 ??? Bronchiectasis 04/17/2019 Resolved Ambulatory Problems Diagnosis Date Noted ??? No Resolved Ambulatory Problems Past Medical History: Diagnosis Date ??? Thyroid disease ROSY ROS: Constitutional: Weight change: patient not weighed today, based on most recent weight in Epic weighthas been steady- Wt Readings from Last 3 Encounters: 07/25/21 63.5 kg (140 lb) 02/01/21 63.8 kg (140 lb 9.6 oz) 11/22/20 63.4 kg (139 lb 11.2 oz) ENT: Nasal Obstruction: no : Nocturia: no Time spent: 20 minutes was spent in discussion with the patient regarding counseling/education and on chart review and documentation. Assessment: Ms. Mandy Foreman is a 75 y.o. female seen for obstructive sleep apnea. The data download reveals the AHI and leak appear to be well controlled. Patient was noting ongoing benefit with sleep quality, daytime energy and alertness until she stopped using it in May. Her usage is on the very low side due to pressure intolerance, feels it's too high and unit is ? malfunctioning. Recommendations: Restart CPAP with PAP extension Reduce CPAP pressure to 6 cm, order to K[facility], call if unable to tolerate pressure change Reach out to [facility] about unit, it's not clear to me why she thinks the unit is malfunctioning but it seems all of a sudden the pressures seems to be too high. Continue to get PAP supplies at the recommended replacement intervals Driving safety discussed, recommend patient not drive if drowsy, if drowsy while driving, candy puller and nap. Follow-up: 3 months or sooner if needed The patient indicates understanding of these issues and agrees with the plan. SHAHRZAD CLARK APRN documented in this encounter Plan of Treatment Upcoming Encounters Date Type Specialty Care Team Description 02/24/2023 Hospital Encounter Gastroenterology Cristofer Armando MD [facility] GASTROENTEROLOGY [place], [place] [address] (Wo rk) Scheduled Procedures Name Priority Associated Diagnoses Date/Time COLONOSCOPY, DIAGNOSTIC H/O DIVERTICULITIS 10 DIALLO RVEILLANCE documented as of this encounter Visit Diagnoses Diagnosis ROSY on CPAP Obstructive sleep apnea (adult) (pediatr ic) documented in this encounter Care Teams Private Branch Exchange Service Advisor Relationship Specialty Start Date End Date Tony Fuller PA PCP - General Family Medicine 04/06/20 [address] [place] [address] documented as of this encounter
--- OUTSIDE RECORDS SUMMARY | 2022-02-08 09:07 | XMS_ITS | Encounter Summary ---
:1945 Author Organization [place] [address] Care Team Providers Name Role Phone Tony Fuller Primary Care Provider Encounter Details Date Type Department Care Team Description 02/01/2022 Ancillary Procedure [facility]iology [facility] [place] [facility] Mccall [id number] [place] [phone] Social History Tobacco Use Types Packs/Day Years [...] Cristofer Armando MD [facility] GASTROENTEROLOGY [place], [place] [address] (Wo rk) Scheduled Procedures Name Priority Associated Diagnoses Date/Time COLONOSCOPY, DIAGNOSTIC H/O DIVERTICULITIS 10 DIALLO RVEILLANCE documented as of this encounter Procedures Procedure Name Priority Date/Time Associated Diagnosis Comme nts FILM LIBRARY Routine 02/01/2022 12:00 AM Results for this STORAGE ONLY DX EDT procedure ar e in CHEST the results section. documented in this encounter Results Film Library- Storage Only DX Chest (02/01/2022 12:00 AM EDT) Specimen (Source) Anatomical Location Collection Method / Collectio n Time Received Time / Laterality Volume Narrative [facility] - 02/02/2022 11:22 AM EDT This exam is auto-finalizing. It's purpo se is for storage only. Tony SCHROEDER IMG FILM LIBRARY ORDERABLES Performing Organization Address City/State/ZIP Code Phon e Number [place], [place] documented in this encounter Visit Diagnoses Not on filedocumented in this encounter Care Teams Unemployment Examiner Relationship Specialty Start Date End Date Tony Fuller PA PCP - General Family Medicine 04/06/20 [address] [place] [address] documented as of this encounter
--- OUTSIDE RECORDS SUMMARY | 2022-02-08 09:07 | XMS_ITS | Encounter Summary ---
:1945 Author Organization [facility] [place] [address] Care Team Providers Name Role Phone Tony Fuller Primary Care Provider Encounter Details Date Type Department Care Team Description 11/22/2020 Office Visit Infectious Disease Genna Sheriff Myco bacterium avium [place] [facility] [place] infection [facility] [address] [place], [place] [address] [place] [address] [phone] (Wo rk) Social History Tobacco Use Types Packs/Day Years Used Date Former Smoker Quit: 09/29/18 85 Smokeless Tobacco: Never Used Alcohol Use Standard Drinks/Week Comments Yes 1.7 (1 standard drink = 0.6 oz pure alco hol) Sex Assigned at Date Recorded Not on file documented as of this encounter Last Filed Vital Signs Vital Sign Reading Time Taken Comments Blood Pressure 143/59 11/22/2020 2:19 PM EDT Pulse 84 11/22/2020 2:19 PM EDT Temperature 36.6 ??C (97.8 ??F) 11/22/2020 2:19 PM EDT Respiratory Rate 18 11/22/2020 2:19 PM EDT Oxygen Saturation 98% 11/22/2020 2:19 PM EDT Inhaled Oxygen Concentration - - Weight 63.4 kg (139 lb 11.2 oz) 11/22/2020 2:19 PM EDT Height 153.7 cm (5' 0.51) 11/22/2020 2:19 PM EDT Body Mass Index 26.82 11/22/2020 2:19 PM EDT documented in this encounter Progress Notes Genna Sheriff MD - 11/22/2020 2:30 PM EDT ID Outpatient Follow Up - Nontuberculous Mycobacterial (NTM) Infection Identification: Chronic cough, recurrent MAC infection Relevant history: Mandy Foreman is a 75 y.o. female previous smoker (quit 1984), with a history of recurrent respiratory infections, bronchiectasis, and ROSY, who had MAC identified through 02/11/2007 bronch. She underwent treatment for MAC [id number] with guidelines-based triple antibiotics. She had improved [...] 2017, she was restarted on the same [id number] TIW therapy, with another episode of PSVT [...] intensified her regimen by moving to daily [id number] (~Jul 2017 but overall retreatment start October 2017). CT on 02/04/2020 formal interpretation available in scanned docs showing stable disease, especially in RML and lingula. She stopped therapy 06/28/20. Interval Last seen 09/14/20. She is now ~6m off therapy. She is still without cough and has no signs of infection like fevers or NS or weight loss. She submitted a specimen to [facility] 09/03/20, which is negative. Shewill produce another when she happens to produce sputum (she has cups at home). Her CT scan 10/04/20 shows no change. Her current concerning symptom is fatigue about which she is working with her PCP and she has a new Cardiac Monitor Technician in [facility]. She had her both COVID vaccines. ROS Otherwise negative Physical Exam BP 143/59 Pulse 84 Temp 36.6 ??C (97.8 ??F) (Temporal) Resp 18 Ht 153.7 cm (5' 0.51) Wt 63.4 kg (139 lb 11.2 oz) SpO2 98% BMI 26.82 kg/m?? Lungs clear. SOC Unchanged Labs: As above and in scanned docs including TSH Microbiology: Date Smear Culture Comments 2006 ? MAC 2008 neg neg By her report 07/03/2017 neg MAC DST above 06/10/2019 neg neg December 31 2019 neg neg [facility] - scanned doc 09/03/20 neg neg Via phone call 10/01/2018:clarithromycin JENNIFER 1 (S), AMK 8, LZD 16 (I), EMB 4, RMP 4, RFB <0.25 Other Studies: 10/04/2020 CCT in media tab, no change. CCT 02/04/2020 showing stable (in storage) and previous to that 06/15/2019: IMPRESSION 1. 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 2. Otherwise, similar findings of bilateral tree-in-bud opacities with mild bronchiectasis and bronchial wall thickening. ?? Impression: Mandy Foreman is a 75 y.o. 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 She was first treated appropriately [id number], and has had nearly 3 years of triple therapy (moved from TIW to daily on Jul 2017) for probable new infection. She did not tolerate Aricayse but she endorsed excellent symptomatic and apparent microbiologic response and radiographic stability. She converted at least by 06/10/2019, and took therapy well beyond 12months presumed negative. She stopped therapy 06/28/20 and produced a spontaneously expectorated sputum which was negative. We also checked a CT at 6m post therapy, which documents stability. She has had full Moderna COVID vaccine series. Recommendations: ?? Remain off MAC therapy: ?? Needs her records from Dr. Gomez shared with her new Cardiac Monitor Technician Dr. Pollack. Apparently she cannot make an appointment without these records pre-sent. ?? Will call if develops new symptoms ?? CC DanteRanjeet Estrada MD Section of Infectious Disease and International Health [email or web address] [phone] minutes were spent in this TOV encounter, during which 20 minutes was spent counseling about NTM infection, treatment, medication side effects and prognosis. All of the patient's questions were answered. documented in this encounter Plan of Treatment Upcoming Encounters Date Type Specialty Care Team Description 02/24/2023 Hospital Encounter Gastroenterology Cristofer Armando MD [facility] DR GASTROENTEROLOGY [place], [place] [address] (Wo rk) Scheduled Procedures Name Priority Associated Diagnoses Date/Time COLONOSCOPY, DIAGNOSTIC H/O DIVERTICULITIS 10 DIALLO RVEILLANCE documented as of this encounter Visit Diagnoses Diagnosis Mycobacterium avium infection Pulmonary diseases due to other mycobact eria documented in this encounter Care Teams Structural Steel Engineer Relationship Specialty Start Date End Date Tony Fuller PA PCP - General Family Medicine 04/06/20 [address] [place] [address] documented as of this encounter
--- OUTSIDE RECORDS SUMMARY | 2022-02-08 09:07 | XMS_ITS | Encounter Summary ---
:1945 Author Organization [facility] [place] [address] Care Team Providers Name Role Phone Tony Fuller Primary Care Provider Encounter Details Date Type Department Care Team Description 06/27/2020 TH Visit Sleep Center at [facility] Shahrzad Clark, ROSY on CPAP (TeleHealth) Road HOOF AND SHOE INSPECTOR [address] [place] [address] [facility] [place] [address] [place], [place] [id number] [phone] (Wo rk) Social History Tobacco Use Types [...] - Inhaled Oxygen Concentration - - Weight 61.2 kg (135 lb) 06/24/2020 9:40 AM EST Height 152.4 cm (5') 06/24/2020 9:40 AM EST Body Mass Index 26.37 06/24/2020 9:40 AM EST documented in this encounter Progress Notes Shahrzad Clark, HOOF AND SHOE INSPECTOR - 06/27/2020 9:30 AM EST Sleep Medicine Telemedicine Follow-Up Note Patient is currently located at their home in [place]. Patient provided verbal consent prior to initiation of this encounter and expressed understanding that the telemedicine visit may be billed similar to a clinic visit CC: Ms. Mandy Foreman is a 74 y.o. female seen for telemedicine follow-up of obstructive sleep apnea. HPI: ROSY was diagnosed in March 2012 in [place]-Dr. Villalobos. ??Her initial AHI was 14.4 with mild hypoxemia (reed SPO2 of 85%). ??She has been treated with autoCPAP with settings of 7-11 cm. ??Her lastCPAP titration was in July 2018 in [place]. There were periodic limb movements. Treatment: CPAP Device: RM Pressure: 7.8 cm, reduced from 8 cm by patient Pressure Intolerance: no Supplemental oxygen:no Interface/Mask: Nasal pillow Difficulty tolerating mask interface: it's OK Chin Strap: no HCC: KMP Update: Continues to get benefit from CPAP, sleep quality has improved and she has increased daytime energy and alertness. Her usage has dropped off due to issues with tube condensation, she is not sure how toadjust. Continues to take 7.5 mg Restoril for insomnia which is OK. Humidity: Yes, having problems with the settings Dry Mouth/Throat: yes Difficulty Breathing Through Nose/Mouth Breathing: no Symptoms: Patient-reported last 4 scores: [facility] 12/29/2019 06/27/2020 [facility] 2 Snoring: Not on CPAP Nocturnal sleep quality improved: yes Daytime symptoms improved (Daytime sleepiness/fatigue): yes Naps: yes, a few times per week Involuntary Dozing: rarely Sleepiness or Drowsiness when driving: no Sleep Pattern: Bedtime: 9:3p-with restoril-falls asleep within 20-30 minutes Position: laterally Rise time: 7a Awakenings: 0 times, when using CPAP more when off CPAP Card Data Download: Date Range: 03/15-06/12/20 Pressure: 7.8 cm , pt adjusted Residual AHI: 0.7 95th% Leak: 16.9 Median Leak: 8.1 Average Usage (Used/Hours): 4 hrs 15 min Days of usage: 85/90 94% % Days used > 4 hours: 50% Previous Card Data Download: Date Range: 09/23-12/22/19 Pressure: 8 cm Residual AHI: 0.5 95th% Leak: 18.3 Median Leak: 9.2 Average Usage (Days Used/Hours): 4 hrs 55 min Days of usage: /90 88% % Days used > 4 hours: 62% Current Outpatient Medications: ??? diazePAM (Valium) 10 mg Tablet, , Disp: , Rfl: ??? fluticasone propion-salmeteroL (Advair HFA) 115-21 mcg/actuation HFA Aerosol Inhaler, Inhale 2 puffs into the lungs 2 times daily. Use spacer. Rinse mouth with water after each use to prevent fungal infection (thrush)., Disp: 1 Inhaler, Rfl: 11 ??? Premarin 0.625 mg/gram Cream, , Disp: , Rfl: ??? azithromycin (Zithromax) 250 mg Tablet, Take 1 tablet by mouth daily., Disp: 90 tablet, Rfl: 5 ??? ethambutol (Myambutol) 400 mg Tablet, Take 2 tablets by mouth daily., Disp: 180 tablet, Rfl: 11 ??? rifAMPin (Rifadin) 300 mg Capsule, Take 2 capsules by mouth daily., Disp: 180 capsule, Rfl: 11 ??? SUMAtriptan (IMITREX) 100 mg Tablet, Take 100 mg by mouth as needed., Disp: , Rfl: ??? venlafaxine (EFFEXOR-XR) 37.5 mg Capsule, Sust. Release 24 hr, Take 37.5 mg by mouth daily., Disp: , Rfl: ??? omeprazole (PRILOSEC) 40 mg Capsule, Delayed Release(E.C.), Take 1 capsule by mouth daily., Disp: , Rfl: ??? temazepam (RESTORIL) 15 mg capsule, Take 7.5 mg by mouth nightly as needed., Disp: , Rfl: ??? albuterol (Ventolin HFA) 90 mcg/actuation HFA Aerosol Inhaler, Inhale 2 puffs into the lungs every morning. Prior to Arikayce dose. (Patient not taking: Reported on 06/24/2020), Disp: 1 Inhaler, Rfl: 1 ??? diazePAM (VALIUM) 5 mg Tablet, Take 5 mg by mouth every 6 hours as needed., Disp: , Rfl: ??? ibuprofen (ADVIL;MOTRIN) 800 [...] today, based on most recent weight in [facility] weighthas been steady- Wt Readings from Last 3 Encounters: 06/24/20 61.2 kg (135 lb) 04/06/20 59.6 kg (131 lb 6.4 oz) 12/25/19 59 kg (130 lb) ENT: Nasal Obstruction: no : Nocturia: no Time spent: 15 minutes was spent in discussion with the patient regarding counseling/education. Assessment: Ms. Mandy Foreman is a 74 y.o. female seen for obstructive sleep apnea. The data download reveals the AHI and leak appear to be well controlled. Patient is doing well with the current pressure and reports improvement, noting ongoing benefit with sleep quality, daytime energy and alertness. Her usage is on the low side due to issues with condensation in the CPAP tubing. She has long standing insomnia that is stable on Restoril as prescribed by an outside provider. Recommendations: Keep CPAP at 7.8 cm (pt adjusted by mistake but seeing is fine) Call KMP to get helps with comfort settings PAP extension Continue to get PAP supplies at the recommended replacement intervals Driving safety discussed, recommend patient not drive if drowsy, if drowsy while driving, machine assembler for puller over and nap. Follow-up: 12 months or sooner if needed The patient indicates understanding of these issues and agrees with the plan. SHAHRZAD CLARK APRN documented in this encounter Plan of Treatment Upcoming Encounters Date Type Specialty Care Team Description 02/24/2023 Hospital Encounter Gastroenterology Cristofer Armando MD [facility] ER DR GASTROENTEROLOGY [place], [place] [address] (Wo rk) Scheduled Procedures Name Priority Associated Diagnoses Date/Time COLONOSCOPY, DIAGNOSTIC H/O DIVERTICULITIS 10 DIALLO RVEILLANCE documented as of this encounter Visit Diagnoses Diagnosis ROSY on CPAP Obstructive sleep apnea (adult) (pediatr ic) documented in this encounter Care Teams Clinical Services Director Relationship Specialty Start Date End Date Tony Fuller PA PCP - General Family Medicine 04/06/20 [address] [place] [address] documented as of this encounter
--- OUTSIDE RECORDS SUMMARY | 2022-02-08 09:07 | XMS_ITS | Encounter Summary ---
:1945 Author Organization [facility] Address [facility] [place] [address] Care Team Providers Name Role Phone Tony Fuller Primary Care Provider Reason for Visit Reason Onset Date Comments Request For Record 12/01/2021 CT per patient reque st Encounter Details Date Type Department Care Team Description 12/01/2021 Telephone Pulmonology at [facility] Rose, Request For Record (CT [facility] Olya Rogers per patient request) [place] [address] Sekou RN [phone] Social History Tobacco Use Types Packs/Day Years Used Date Former Smoker Quit: 09/29/18 85 Smokeless Tobacco: Never Used Alcohol Use Standard Drinks/Week Comments Yes 1.7 (1 standard drink = 0.6 oz pure alco hol) Sex Assigned at Date Recorded Not on file documented as of this encounter Miscellaneous Notes Telephone Encounter - Sue Rose RN - 12/01/2021 1:[address] chest report, to Tony Fuller at [facility], per patient request. This covered the following items: CT Chest without contrast, dated 11/07/2021. Fax submission confirmation time stamped for 12/01/2021 @ 1410. 3 pages with cover sheet. documented in this encounter Plan of Treatment Upcoming Encounters Date Type Specialty Care Team Description 02/24/2023 Hospital Encounter Gastroenterology Cristofer Armando MD [facility] GASTROENTEROLOGY [place], [place] [address] (Wo rk) Scheduled Procedures Name Priority Associated Diagnoses Date/Time COLONOSCOPY, DIAGNOSTIC H/O DIVERTICULITIS 10 DIALLO RVEILLANCE documented as of this encounter Visit Diagnoses Not on filedocumented in this encounter Care Teams Clean In Places Operator Relationship Specialty Start Date End Date Tony Fuller PA PCP - General Family Medicine 04/06/20 [address] [place] [address] documented as of this encounter
--- OUTSIDE RECORDS SUMMARY | 2022-02-08 09:07 | XMS_ITS | Encounter Summary ---
:1945 Author Organization [facility] [address] Care Team Providers Name Role Phone Tony Fuller Primary Care Provider Encounter Details Date Type Department Care Team Description 02/04/2020 Ancillary Procedure Radiology Library at Grisel Fuller [facility] ALEXANDRE [facility] [address] [place] [id number] [place] [phone] Social History Tobacco Use Types Packs/Day Years [...] Encounter Gastroenterology Cristofer Armando MD [facility] GASTROENTEROLOGY [place], [place] [address] (Wo rk) Scheduled Procedures Name Priority Associated Diagnoses Date/Time COLONOSCOPY, DIAGNOSTIC H/O DIVERTICULITIS 10 DIALLO RVEILLANCE documented as of this encounter Procedures Procedure Name Priority Date/Time Associated Diagnosis Comme nts FILM LIBRARY Routine 02/04/2020 3:51 PM Results f or this STORAGE ONLY CT EDT procedure ar e in CHEST the results section. documented in this encounter Results Film Library- Storage Only CT Chest (02/04/2020 3:51 PM EDT) Specimen (Source) Anatomical Location Collection Method / Collectio n Time Received Time / Laterality Volume Narrative [facility] - 02/04/2020 3:51 PM EDT This exam is auto-finalizing. It's purpo se is for storage only. Tony SCHROEDER IMMal FILM LIBRARY ORDERABLES Performing Organization Address City/State/ZIP Code Phon e Number [place], [place] documented in this encounter Visit Diagnoses Not on filedocumented in this encounter Care Teams Karate Black Belt Relationship Specialty Start Date End Date Tony Fuller PA PCP - General 09/29/13 03/01/20 [address] [place] [address] documented as of this encounter
--- OUTSIDE RECORDS SUMMARY | 2022-02-08 09:07 | XMS_ITS | Encounter Summary ---
:1945 Author Organization [facility] [place] [address] Care Team Providers Name Role Phone Tony Fuller Primary Care Provider Encounter Details Date Type Department Care Team Description 10/20/2019 Telephone Endocrinology at [facility] Lashay Davila, [facility] [place] [address] Social History Tobacco Use Types Packs/Day [...] 02/24/2023 Hospital Encounter Gastroenterology Cristofer Armando MD [facility] ER DR GASTROENTEROLOGY [place], [place] [address] (Wo rk) Scheduled Procedures Name Priority Associated Diagnoses Date/Time COLONOSCOPY, DIAGNOSTIC H/O DIVERTICULITIS 10 DIALLO RVEILLANCE documented as of this encounter Visit Diagnoses Not on filedocumented in this encounter Care Teams Production Foreman Relationship Specialty Start Date End Date Tony Fuller PA PCP - General 09/29/13 03/01/20 [address] [place], [place] [id number] documented as of this encounter
--- OUTSIDE RECORDS SUMMARY | 2022-02-08 09:07 | XMS_ITS | Encounter Summary ---
:1945 Author Organization [facility] [place] [address] Care Team Providers Name Role Phone Tony Fuller Primary Care Provider Encounter Details Date Type Department Care Team Description 04/06/2020 Notes Only Infectious Disease a t [facility] Dante Middleton, [place] [address] Social History Tobacco Use Types Packs/Day Years Used Date Former Smoker Quit: 09/29/18 85 Smokeless Tobacco: Never Used Alcohol Use Standard Drinks/Week Comments Yes 1.7 (1 standard drink = 0.6 oz pure alco hol) Sex Assigned at Date Recorded Not on file documented as of this encounter Progress Notes Dante Middleton, RN - 04/06/2020 3:29 PM EDT [facility] Note Overall Mandy reports that things are going well. Monitoring: CBC/CMP: labs recent 04/05/2020 (see scanned documents tab) EKG: will obtain in clinic today (her diesel electrician will see her in 1 year, Dr. Vlileda) CT/imaging: recently done at [facility] on 02/04/2020 (official read discussed by provider, report recievedfrom [facility]) S/S -Inhaler: Advair-this has made a big difference! -Energy level: improved! -Cough: I just don't have any, no sputum production either. Reports does have sputum Cups at home in event produces sputum. -No fever, no night sweats, no weight loss. No diarrhea, no skin rashes, no eye issues. Plan: -EKG (done in clinic) -High Dose Influenza. CDC VIS sheet provided/review (vaccine given by RN). -? End of therapy Bronch in Apr 2020? documented in this encounter Plan of Treatment Upcoming Encounters Date Type Specialty Care Team Description 02/24/2023 Hospital Encounter Gastroenterology Cristofer Armando MD [facility] DR GASTROENTEROLOGY [place], [place] [address] (Wo rk) Scheduled Procedures Name Priority Associated Diagnoses Date/Time COLONOSCOPY, DIAGNOSTIC H/O DIVERTICULITIS 10 DIALLO RVEILLANCE documented as of this encounter Visit Diagnoses Not on filedocumented in this encounter Care Teams Radio Communication Coordinator Relationship Specialty Start Date End Date Tony Fuller PA PCP - General Family Medicine 04/06/20 [address] [place] [address] documented as of this encounter
--- OUTSIDE RECORDS SUMMARY | 2022-02-08 09:07 | XMS_ITS | Encounter Summary ---
:1945 Author Organization [place] [address] Care Team Providers Name Role Phone Tony Fuller Primary Care Provider Encounter Details Date Type Department Care Team Description 12/29/2019 TH Visit Sleep Center at [facility] Shahrzad Clark, ROSY on CPAP (TeleHealth) Road PLUCK SEPARATOR [address] [facility] [place] [address] [place], [place] [address] [phone] (Wo rk) Social History Tobacco Use Types [...] - Inhaled Oxygen Concentration - - Weight 59 kg (130 lb) 12/25/2019 12:01 PM Verbally Rep orted EDT Height 153.7 cm (5' 0.5) 12/25/2019 12:01 PM EDT Body Mass Index 24.97 12/25/2019 12:01 PM EDT documented in this encounter Progress Notes Shahrzad Clark, PLUCK SEPARATOR - 12/29/2019 10:30 AM EDT Sleep Medicine Telemedicine Follow-Up Note Patient is currently located at their home in [place]. Patient provided verbal consent prior to initiation of this encounter and expressed understanding that the telemedicine visit may be billed similar to a clinic visit CC: Ms. Mandy Foreman is a 74 y.o. female seen for telemedicine follow-up of obstructive sleep apnea. HPI: ROSY was diagnosed in March 2012 in [place]-Dr. Villalobos. ??Her initial AHI was 14.4 with mild hypoxemia (reed SPO2 of 85%). ??She has been treated with autoCPAP with settings of 7-11 cm. ??Her lastCPAP titration was in July 2018 in [place]. There were periodic limb movements . Treatment: CPAP Device: RM Pressure: 8 cm Pressure Intolerance: no Supplemental oxygen:no Interface/Mask: Nasal pillow Difficulty tolerating mask interface: it's OK Chin Strap: no HCC: KMP Update: Continues to get benefit from CPAP, sleep quality has improved and she has increased daytime energy and alertness. Continues to take Restoril for insomnia which is not been well controlled lately. Is having problemswith joint pain and her FMS is active lately which is interfering with her sleep. Humidity: yes Dry Mouth/Throat: no Difficulty Breathing Through Nose/Mouth Breathing: no Symptoms: Patient-reported last 4 scores: [facility] 12/29/2019 [facility] 3 Snoring: Not on CPAP Nocturnal sleep quality improved: yes Daytime symptoms improved (Daytime sleepiness/fatigue): yes Naps: yes Involuntary Dozing: rarely Sleepiness or Drowsiness when driving: no Sleep Pattern: Bedtime: 9:3p-with restoril-falls asleep within 20-45 minutes Position: all-is having joint pain that is interfering with sleep Rise time: 4-5a Awakenings: 2 times, not sure, might be uncomfortable-is able to fall back to sleep in an hour. FMS/arthritis has been more active lately. Card Data Download: Date Range: 09/23-12/22/19 Pressure: 8 cm Residual AHI: 0.5 95th% Leak: 18.3 Median Leak: 9.2 Average Usage (Days Used/Hours): 4 hrs 55 min Days of usage: 79/90 88% % Days used > 4 hours: 62% Previous Card Data Download: Date Range: 03/31-06/28/2019 Pressure: 8 cm Residual AHI: 0.5 95th% Leak: 19.8 Median Leak:10.3 Average Usage (Days Used/Hours): 6 hrs 13 min Days of usage: -had a bad reaction to a medication and couldn't use CPAP for a little over a month % Days used > 4 hours: 39% Current Outpatient Medications: ??? Premarin 0.625 mg/gram Cream, , Disp: , Rfl: ??? albuterol (Ventolin HFA) 90 mcg/actuation HFA Aerosol Inhaler, Inhale 2 puffs into the lungs every morning. Prior to Arikayce dose., Disp: 1 Inhaler, Rfl: 1 ??? azithromycin (Zithromax) 250 mg Tablet, Take 1 tablet by mouth daily., Disp: 90 tablet, Rfl: 5 ??? ethambutol (Myambutol) 400 mg Tablet, Take 2 tablets by mouth daily., Disp: 180 tablet, Rfl: 11 ??? rifAMPin (Rifadin) 300 mg Capsule, Take 2 capsules by mouth daily., Disp: 180 capsule, Rfl: 11 ??? SUMAtriptan (IMITREX) 100 mg Tablet, , Disp: , Rfl: ??? diazePAM (VALIUM) 5 mg Tablet, 5 mg., Disp: , Rfl: ??? venlafaxine (EFFEXOR-XR) 37.5 mg Capsule, Sust. Release 24 hr, daily., Disp: , Rfl: ??? omeprazole (PRILOSEC) 40 mg Capsule, Delayed Release(E.C.), Take 1 capsule by mouth daily., Disp: , Rfl: ??? ibuprofen (ADVIL;MOTRIN) 800 mg Tablet, Take 1 tablet by mouth 3 times daily as needed., Disp: ,Rfl: ??? temazepam (RESTORIL) 15 mg capsule, Take 15 mg by mouth nightly as needed., Disp: , Rfl: ??? cyanocobalamin, vitamin B-12, 100 mcg tablet, Take 100 mcg by mouth daily., Disp: , Rfl: ??? tretinoin (RETIN-A) 0.05 % cream, Apply topically nightly. Physician will not do prior authorization (Patient not taking: Reported on 04/14/2019), Disp: 15 g, Rfl: prn Active Ambulatory Problems Diagnosis Date Noted ??? [...] steady- Wt Readings from Last 3 Encounters: 12/25/19 59 kg (130 lb) 07/28/19 60.1 kg (132 lb 6.4 oz) 07/22/19 58.5 kg (129 lb) ENT: Nasal Obstruction: no : Nocturia: [...] is on the low side due to recent poor sleep patterns. She has long standing insomnia that is stable on Restoril as prescribed by an outside provider. She has been dealing joint pain which is interfering with her sleep lately. Recommendations: Keep CPAP 8 cm PAP extension Continue to get PAP supplies at the recommended replacement intervals Driving safety discussed, recommend patient not drive if drowsy, if drowsy while driving, puller machine and nap. OK to try Tylenol 650 mg at HS to see if that helps with her joint pain-will f/u with PCP as well. Follow-up: 6 months or sooner if needed The patient indicates understanding of these issues and agrees with the plan. SHAHRZAD CLARK APRN documented in this encounter Plan of Treatment Upcoming Encounters Date Type Specialty Care Team Description 02/24/2023 Hospital Encounter Gastroenterology Cristofer Armando MD [facility] ER DR GASTROENTEROLOGY [place], [place] [address] (Wo rk) Scheduled Procedures Name Priority Associated Diagnoses Date/Time COLONOSCOPY, DIAGNOSTIC H/O DIVERTICULITIS 10 DIALLO RVEILLANCE documented as of this encounter Visit Diagnoses Diagnosis ROSY on CPAP Obstructive sleep apnea (adult) (pediatr ic) documented in this encounter Care Teams Skills Auditor Relationship Specialty Start Date End Date Tony Fuller PA PCP - General 09/29/13 03/01/20 [address] [place] [address] documented as of this encounter
--- OUTSIDE RECORDS SUMMARY | 2022-02-08 09:07 | XMS_ITS | Encounter Summary ---
:1945 Author Organization [facility] [place] [address] Care Team Providers Name Role Phone Tony Fuller Primary Care Provider Encounter Details Date Type Department Care Team Description 02/04/2020 Notes Only Infectious Disease a t [facility] Dante Middleton, [place] [address] Social History Tobacco Use Types Packs/Day Years Used Date Former Smoker Quit: 09/29/18 85 Smokeless Tobacco: Never Used Alcohol Use Standard Drinks/Week Comments Yes 1.7 (1 standard drink = 0.6 oz pure alco hol) Sex Assigned at Date Recorded Not on file documented as of this encounter Progress Notes Dante Middleton RN - 02/04/2020 5:17 PM EDT Patient had recent CT scan performed at [facility] (02/04/2020). Exam report is auto- finalizing at this time in eDH, images are available however, and paper report faxed (will be scanned to eDH/medical records). Impression per 02/04/2020 CT Chest without Contrast: 1. Stable pulmonary findings compared to the examination from 06/15/2019. 2. No acute pulmonary process. Plan: -Next [place] follow up appointment with Dr. Sheriff is 02/16/20, @ 2:00 pm. documented in this encounter Plan of Treatment Upcoming Encounters Date Type Specialty Care Team Description 02/24/2023 Hospital Encounter Gastroenterology Cristofer Armando MD [facility] DR GASTROENTEROLOGY [place], [place] [address] (Wo rk) Scheduled Procedures Name Priority Associated Diagnoses Date/Time COLONOSCOPY, DIAGNOSTIC H/O DIVERTICULITIS 10 DIALLO RVEILLANCE documented as of this encounter Visit Diagnoses Not on filedocumented in this encounter Care Teams Laborer Steel Handling Relationship Specialty Start Date End Date Tony Fuller PA PCP - General 09/29/13 03/01/20 [address] [place] [address] documented as of this encounter
--- OUTSIDE RECORDS SUMMARY | 2022-02-08 09:07 | XMS_ITS | Encounter Summary ---
:1945 Author Organization [facility] [place] [address] Care Team Providers Name Role Phone Tony Fuller Primary Care Provider Encounter Details Date Type Department Care Team Description 09/03/2020 Telephone Pulmonology at [facility] Lamont Riggs MD [facility] [place] [address] PULMONARY MEDICINE [phone] [place], [place] [address] (Wo rk) Social History Tobacco Use Types Packs/Day Years Used Date Former Smoker Quit: 09/29/18 85 Smokeless Tobacco: Never Used Alcohol Use Standard Drinks/Week Comments Yes 1.7 (1 standard drink = 0.6 oz pure alco hol) Sex Assigned at Date Recorded Not on file documented as of this encounter Miscellaneous Notes Telephone Encounter - Lamont Riggs MD - 09/03/2020 4:40 PM EST I received a page from the horizontal boring mill set up operator to call Mandy Foreman, who sees Dr. Gomez and Dr. Sheriff for MAC. She had expectorated sputum and was going to drop it off at the micro lab at [facility] but there was apparently no order. I called [facility] microbiology to place a verbal order for AFB smear and culture so the sputum could be processed, and will fax an order to their lab tomorrow as well. documented in this encounter Plan of Treatment Upcoming Encounters Date Type Specialty Care Team Description 02/24/2023 Hospital Encounter Gastroenterology Cristofer Armando MD [facility] GASTROENTEROLOGY [place], [place] [address] (Wo rk) Scheduled Procedures Name Priority Associated Diagnoses Date/Time COLONOSCOPY, DIAGNOSTIC H/O DIVERTICULITIS 10 DIALLO RVEILLANCE documented as of this encounter Visit Diagnoses Not on filedocumented in this encounter Care Teams Snowmaker Relationship Specialty Start Date End Date Tony Fuller PA PCP - General Family Medicine 04/06/20 [address] [place] [address] documented as of this encounter
--- OUTSIDE RECORDS SUMMARY | 2022-02-08 09:07 | XMS_ITS | Encounter Summary ---
:1945 Author Organization [facility] [place] [address] Care Team Providers Name Role Phone Tony Fuller Primary Care Provider Encounter Details Date Type Department Care Team Description 09/14/2020 TH Visit Pulmonology at [facility] Emma Gomez, Baudilio, unspecified type; (TeleHealth) [facility] MD Bronchiectasis without complication; [facility] bronchiectatic pulmo nary Mycobacterium avium complex (MAC) infection [facility] [id number] PULMONARY [phone] [place] [address] Social History Tobacco Use Types Packs/Day Years Used Date Former Smoker Quit: 09/29/18 84 Smokeless Tobacco: Never Used Alcohol Use Standard Drinks/Week Comments Yes 1.7 (1 standard drink = 0.6 oz pure alco hol) Sex Assigned at Date Recorded Not on file documented as of this encounter Progress Notes Emma Gomez MD - 09/14/2020 1:00 PM EST Images from the original note were not included. MEDICINE Section of Pulmonary and Critical Care Medicine Telephone Visit Date of Visit: 09/14/2020 Time of Visit: 12:56 PM Has the patient provided verbal consent to have today's telephone visit? Yes Does the patient understand that he/she and/or his/her health insurance plan may receive a bill for this visit? Yes Medication List Reconciled with Patient? Yes Medication Allergy/Adverse Drug Reaction List Reconciled with Patient? Yes Added Arikayce (shortness of breath) and Biaxin (likely trigger of SVT) Interval History: Mandy is a 75-year-old woman with bronchiectasis and nodular bronchiectatic MAC infection. She stopped azithromycin, rifampin, and ethambutol in early July 2020. She had mild airflow obstruction on spirometry in April 2019. Stopped NTM regimen about July 22, 2020. Exhaustion. Was presenting symptom. Energy started to tank about 2 weeks after stopping the NTM treatment. Sleeping much better since she stopped NTM treatment. Noticed 100% improvement within first week. Auto-CPAP seems to be working well for her - last Slight throat-clearing. Dropped off sputum sample at [facility] about 10 days ago. No results yet. Voice is huskier lately. Couple of episodes of dysphagia for bulky solids within past few months; had barium swallow at [facility] that she says was unrevealing. Appetite and weight are stable. Stopped Advair HFA - felt dizziness after using it, so stopped. Uses albuterol HFA in AM, rarely in PM. Takes before going on a walk. She thinks albuterol helps herbreath more easily. Review of Systems: A 12 point review of systems is otherwise negative. I reviewed chest CT scans performed on February 04, 2020 and June 15, 2019. The findings are virtually identical on both scans. Bronchiectasis in the right middle lobe and lingula and to a lesser extentin the right upper lobe. Some scattered tree-in-bud opacities in these regions. No cavitary changes. Impression / Plan of Care: Problem List Items Addressed This Visit Bronchiectasis Will remain off Advair HFA. Was not a game-changer. OK to continue using albuterol in pattern described. Fatigue Somewhat concerning that she is again having profound fatigue off of NTM therapy, as this was a notable symptom of initial infection. Could have anemia or hypothyroidism as alternative causes of fatigue, so should be explored. It sounds like her ROSY is well-treated, thus making it less likely to be cause of fatigue. Mandy will discuss with her PCP and Dr. Sheriff later this PM. 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 I cannot find in system, so will request records. Pulmonary stands prepared to do a bronchoscopy with BAL if we're still wondering about recurrent/persistent infection. Mandy can usually expectorate small mucus plugs now, so could consider getting a follow-up culture now at [facility] to increase diagnostic yield. Follow-Up: 3-6 months or if needs bronchoscopy; I discussed my departure from [facility] with the patient. 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 I cannot find in system, so will request records. Pulmonary stands prepared to do a bronchoscopy with BAL if we're still wondering about recurrent/persistent infection. Mandy can usually expectorate small mucus plugs now, so could consider getting a follow-up culture now at [facility] to increase diagnostic yield. Assessment & Plan Note - Emma Gomez MD - 09/14/2020 1:24 PM ESTAssociated Problem(s): Bronchiectasis Will remain off Advair HFA. Was not a game-changer. OK to continue using albuterol in pattern described. Assessment & Plan Note - Emma Gomez MD - 09/14/2020 1:23 PM ESTAssociated Problem(s): Fatigue Somewhat concerning that she is again having profound fatigue off of NTM therapy, as this was a notable symptom of initial infection. Could have anemia or hypothyroidism as alternative causes of fatigue, so should be explored. It sounds like her ROSY is well-treated, thus making it less likely to be cause of fatigue. Mandy will discuss with her PCP and Dr. Sheriff later this PM. documented in this encounter Plan of Treatment Upcoming Encounters Date Type Specialty Care Team Description 02/24/2023 Hospital Encounter Gastroenterology Cristofer Armando MD [facility] [address] GASTROENTEROLOGY [place], [place] [address] (Wo rk) Scheduled Procedures Name Priority Associated Diagnoses Date/Time COLONOSCOPY, DIAGNOSTIC H/O DIVERTICULITIS 10 DIALLO [address]ANCE documented as of this encounter Visit Diagnoses Diagnosis Fatigue, unspecified type Bronchiectasis without complication Bronchiectasis without acute exacerbatio n Nodular bronchiectatic pulmonary Mycobac terium avium complex (MAC) infection Pulmonary diseases due to other mycobact eria documented in this encounter Care Teams Tungsten Tender Relationship Specialty Start Date End Date Tony Fuller PA PCP - General Family Medicine 04/06/20 [address] [place] [address] documented as of this encounter
--- OUTSIDE RECORDS SUMMARY | 2022-02-08 09:07 | XMS_ITS | Encounter Summary ---
:1945 Author Organization [facility] [place] [address] Care Team Providers Name Role Phone Tony Fuller Primary Care Provider Encounter Details Date Type Department Care Team Description 07/29/2019 Orders Only Infectious Disease at [facility] My cobacterium avium infection; [place] [place] [id number] Social History Tobacco Use Types Packs/Day Years [...] MD [facility] GASTROENTEROLOGY [place], [place] [address] (Wo rk) Scheduled Procedures Name Priority Associated Diagnoses Date/Time COLONOSCOPY, DIAGNOSTIC H/O DIVERTICULITIS 10 DIALL[address]ILLANCE documented as of this encounter Visit Diagnoses Diagnosis Mycobacterium avium infection Pulmonary diseases due to other mycobact eria Medication monitoring encounter Encounter for therapeutic drug monitorin g documented in this encounter Care Teams Tablet Repair Relationship Specialty Start Date End Date Tony Fuller PA PCP - General 09/29/13 03/01/20 [address] [place] [address] documented as of this encounter
--- OUTSIDE RECORDS SUMMARY | 2022-02-08 09:07 | XMS_ITS | Encounter Summary ---
:1945 Author Organization [place] [address] Care Team Providers Name Role Phone Tony Fuller Primary Care Provider Encounter Details Date Type Department Care Team Description 02/06/2021 Ancillary Procedure Radiology [facility] [place] [facility] Mccall [id number] [place] [id number] [phone] Social History Tobacco Use Types Packs/Day Years [...] 02/24/2023 Hospital Encounter Gastroenterology Cristofer Armando MD [facility] GASTROENTEROLOGY [place], [place] [address] (Wo rk) Scheduled Procedures Name Priority Associated Diagnoses Date/Time COLONOSCOPY, DIAGNOSTIC H/O DIVERTICULITIS 10 DIALL[address]VEILLANCE documented as of this encounter Procedures Procedure Name Priority Date/Time Associated Diagnosis Comme nts FILM LIBRARY Routine 02/06/2021 12:00 AM Results for this STORAGE ONLY CT EDT procedure ar ragini in CHEST the results section. documented in this encounter Results Film Library- Storage Only CT Chest (02/06/2021 12:00 AM EDT) Specimen (Source) Anatomical Location Collection Method / Collectio n Time Received Time / Laterality Volume Narrative [facility] - 02/07/2021 8:15 AM EDT This exam is auto-finalizing. It's purpo se is for storage only. Tony SCHROEDER IMG FILM LIBRARY ORDERABLES Performing Organization Address City/State/ZIP Code Phon e Number [place], [place] documented in this encounter Visit Diagnoses Not on filedocumented in this encounter Care Teams [employer] Founder Relationship Specialty Start Date End Date Tony Fuller PA PCP - General Family Medicine 04/06/20 [address] [place] [address] documented as of this encounter
--- OUTSIDE RECORDS SUMMARY | 2022-02-08 09:07 | XMS_ITS | Encounter Summary ---
:1945 Author Organization [facility] [place] [address] Care Team Providers Name Role Phone Tony Fuller Primary Care Provider Encounter Details Date Type Department Care Team Description 02/18/2020 Telephone Infectious Disease a t [facility] [place] [address] Social History Tobacco Use Types Packs/Day Years Used Date Former Smoker Quit: 09/29/18 85 Smokeless Tobacco: Never Used Alcohol Use Standard Drinks/Week Comments Yes 1.7 (1 standard drink = 0.6 oz pure alco hol) Sex Assigned at Date Recorded Not on file documented as of this encounter Miscellaneous Notes Telephone Encounter - Abiodun Fregoso - 02/18/2020 2:36 PM EDT LMOAM X1 to schedule 3 month f/u with Dr. Sheriff. documented in this encounter Plan of Treatment Upcoming Encounters Date Type Specialty Care Team Description 02/24/2023 Hospital Encounter Gastroenterology Cristofer Armando MD [facility] GASTROENTERIMANI [place], [place] [address] (Wo rk) Scheduled Procedures Name Priority Associated Diagnoses Date/Time COLONOSCOPY, DIAGNOSTIC H/O DIVERTICULITIS 10 DIALLO RVEILLANCE documented as of this encounter Visit Diagnoses Not on filedocumented in this encounter Care Teams Retrimmer Relationship Specialty Start Date End Date Tony Fuller PA PCP - General 09/29/13 03/01/20 [address] [place] [address] documented as of this encounter
--- OUTSIDE RECORDS SUMMARY | 2022-02-08 09:07 | XMS_ITS | Encounter Summary ---
:1945 Author Organization [facility] [place] [address] Care Team Providers Name Role Phone Tony Fuller Primary Care Provider Encounter Details Date Type Department Care Team Description 02/26/2020 TH Visit Pulmonology at [facility] Emma Gomez, Bronchiectasis without (TeleHealth) [facility] MD complication [facility] [phone] PULMONARY [phone] [place] [address] Social History Tobacco Use Types Packs/Day Years Used Date Former Smoker Quit: 09/29/18 85 Smokeless Tobacco: Never Used Alcohol Use Standard Drinks/Week Comments Yes 1.7 (1 standard drink = 0.6 oz pure alco hol) Sex Assigned at Date Recorded Not on file documented as of this encounter Progress Notes Emma Gomez MD - 02/26/2020 1:30 PM EDT Images from the original note were not included. MEDICINE Section of Pulmonary and Critical Care Medicine Telephone Visit Date of Visit: 02/26/2020 Time of Visit: 1:33 PM Has the patient provided verbal consent to have today's telephone visit? Yes Does the patient understand that he/she and/or his/her health insurance plan may receive a bill for this visit? Yes Medication List Reconciled with Patient? Yes Medication Allergy/Adverse Drug Reaction List Reconciled with Patient? Yes Added Arikayce (shortness of breath) and Biaxin (likely trigger of SVT) Interval History: Mandy is a 74-year-old woman with bronchiectasis and nodular bronchiectatic MAC infection. She is currently being treated with azithromycin, rifampin, and ethambutol. She had mild airflow obstruction on spirometry in April 2019. I last checked in with her in early October 2019. At that time, she noted some reduction in exertionaldyspnea and response to albuterol. We discussed the possibility of taking an ICS/LABA to control asthma symptoms, but she wanted to continue as needed use of albuterol. She was tolerating 3 drug therapy for MAC. We talked about the possible need for bronchoscopy to obtain definitive lower respiratory tract samples for culture. Today, we had a visit to discuss interval worsening of exertional dyspnea and occasional wheezing. Both of these symptoms have responded well to albuterol, but effects are transient. Recall, she says that Symbicort HFA has historically caused her to be lightheaded and otherwise unwell. She thinks thatshe tolerated Advair in the past. She followed up with Dr. Sheriff earlier this month. Mandy had gotten a follow-up chest CT scan, but it sounds like the radiology report was not available to Dr. Gill the time. She continues to deny sputum production, hemoptysis, or pleuritic chest pain. She is not having any brash or dysphagia to suggest reflux. Cough is very rare. She denies any fevers, chills, or sweating. Appetite and weight have been stable. Review of Systems: A 12 point review [...] Problem List Items Addressed This Visit Bronchiectasis Mandy reports symptoms consistent with mild persistent asthma. I think that she would benefit from a controller agent, and she agrees with this estimation. I am prescribing Advair HFA 115-21, 2 puffs inhaled twice daily. She will let me know if there are any problems with hoarseness, thrush, or lack of efficacy. I told her that she should find a lesser need to use albuterol with Advair HFA in the background. If she cannot tolerate Advair HFA, I may put her on a brief course of prednisone. We reviewed her CT scan findings on the phone. I told her that stability of the findings is a good sign. The findings do not confirm or refute persistent MAC infection, however, so we still need to getlower respiratory tract samples. I told her that we could perform bronchoscopy within the next 2 to 3 weeks (hopefully after her airway hyperreactivity settles down). She describes tolerance of moderate (conscious) sedation conditions. Relevant Medications fluticasone propion-salmeteroL (Advair HFA) 115-21 mcg/actuation HFA Aerosol Inhaler Medication Changes / Refills Conducted Today: Medication ordered or changed during this encounter, will not show discontinued medications Medications ??? fluticasone propion-salmeteroL (Advair HFA) 115-21 mcg/actuation HFA Aerosol Inhaler Sig: Inhale 2 puffs into the lungs 2 times daily. Use spacer. Rinse mouth with water after each useto prevent fungal infection (thrush). Dispense: 1 Inhaler Refill: 11 Follow-Up: Bronchoscopy within the next 2 to 3 weeks for surveillance cultures. Counseling Statement: I spent >50% of this 30 minute visit counseling the patient about the following topics: Natural history of bronchiectasis; pharmacodynamics and pharmacokinetics of albuterol and fluticasone/salmeterol. Level of Service Codes (check one that applies) [] PRO ESTABLISHED PATIENT LEVEL 1 [44655] [] PRO ESTABLISHED PATIENT LEVEL 2 [[id number]] [] PRO ESTABLISHED PATIENT LEVEL 3 [96932] [x] PRO ESTABLISHED PATIENT LEVEL 4 [[id number]] [] PRO ESTABLISHED PATIENT LEVEL 5 [07427] EMMA GOMEZ MD 02/26/2020 1:33 PM documented in this encounter Miscellaneous Notes Assessment & Plan Note - Emma Gomez MD - 02/27/2020 9:44 AM EDTAssociated Problem(s): Bronchiectasis Mandy reports symptoms consistent with mild persistent asthma. I think that she would benefit from acontroller agent, and she agrees with this estimation. I am prescribing Advair HFA 115-21, 2 puffs inhaled twice daily. She will let me know if there are any problems with hoarseness, thrush, or lack of efficacy. I told her that she should find a lesser need to use albuterol with Advair HFA in the background. If she cannot tolerate Advair HFA, I may put her on a brief course of prednisone. We reviewed her CT scan findings on the phone. I told her that stability of the findings is a good sign. The findings do not confirm or refute persistent MAC infection, however, so we still need to getlower respiratory tract samples. I told her that we could perform bronchoscopy within the next 2 to 3 weeks (hopefully after her airway hyperreactivity settles down). She describes tolerance of moderate (conscious) sedation conditions. documented in this encounter Plan of Treatment Upcoming Encounters Date Type Specialty Care Team Description 02/24/2023 Hospital Encounter Gastroenterology Cristofer Armando MD [facility] DR GASTROENTEROLOGY [place], [place] [address] (Wo rk) Scheduled Procedures Name Priority Associated Diagnoses Date/Time COLONOSCOPY, DIAGNOSTIC H/O DIVERTICULITIS 10 DIALLO RVEILLANCE documented as of this encounter Visit Diagnoses Diagnosis Bronchiectasis without complication Bronchiectasis without acute exacerbatio n documented in this encounter Care Teams Taffy Puller Relationship Specialty Start Date End Date Tony Fuller PA PCP - General 09/29/13 03/01/20 [address] [place] [address] documented as of this encounter
--- OUTSIDE RECORDS SUMMARY | 2022-02-08 09:07 | XMS_ITS | Encounter Summary ---
:1945 Author Organization [facility] [place] [address] Care Team Providers Name Role Phone oTny Fuller Primary Care Provider Encounter Details Date Type Department Care Team Description 09/27/2020 Orders Only Infectious Disease a t [facility] Dante Middleton, [place] [address] Social History Tobacco Use Types Packs/Day [...] 02/24/2023 Hospital Encounter Gastroenterology Cristofer Armando MD [facility] DR GASTROENTEROLOGY [place], [place] [address] (Wo rk) Scheduled Procedures Name Priority Associated Diagnoses Date/Time COLONOSCOPY, DIAGNOSTIC H/O DIVERTICULITIS 10 DIALLO RVEILLANCE documented as of this encounter Visit Diagnoses Not on filedocumented in this encounter Care Teams Rental Car Ferry Driver Relationship Specialty Start Date End Date Tony Fuller PA PCP - General Family Medicine 04/06/20 [address] [place], [place] [id number] documented as of this encounter
--- OUTSIDE RECORDS SUMMARY | 2022-02-08 09:07 | XMS_ITS | Encounter Summary ---
:1945 Author Organization [facility] [place] [address] Care Team Providers Name Role Phone Tony Fuller Primary Care Provider Encounter Details Date Type Department Care Team Description 04/07/2020 Telephone Infectious Disease a [place] [facility] [place] [address] Social History Tobacco Use Types Packs/Day Years Used Date Former Smoker Quit: 09/29/18 85 Smokeless Tobacco: Never Used Alcohol Use Standard Drinks/Week Comments Yes 1.7 (1 standard drink = 0.6 oz pure alco hol) Sex Assigned at Date Recorded Not on file documented as of this encounter Miscellaneous Notes Telephone Encounter - Abiodun Fregoso - 04/07/2020 12:45 PM EDT LMOAM X1 to schedule 3 month f/u with Dr. Sheriff. documented in this encounter Plan of Treatment Upcoming Encounters Date Type Specialty Care Team Description 02/24/2023 Hospital Encounter Gastroenterology Cristofer Armando MD [facility] ER GASTROENTERIMANI [place], [place] [address] (Wo rk) Scheduled Procedures Name Priority Associated Diagnoses Date/Time COLONOSCOPY, DIAGNOSTIC H/O DIVERTICULITIS 10 DIALLO RVEILLANCE documented as of this encounter Visit Diagnoses Not on filedocumented in this encounter Care Teams Plate Colorer Relationship Specialty Start Date End Date Tony Fuller PA PCP - General Family Medicine 04/06/20 [address] [place] [address] documented as of this encounter
--- OUTSIDE RECORDS SUMMARY | 2022-02-08 09:07 | XMS_ITS | Encounter Summary ---
:1945 Author Organization [facility] [place] [address] Care Team Providers Name Role Phone Tony Fuller Primary Care Provider Encounter Details Date Type Department Care Team Description 01/22/2020 Notes Only Infectious Disease a t [facility] [place] [address] Social History Tobacco Use Types Packs/Day Years Used Date Former Smoker Quit: 09/29/18 85 Smokeless Tobacco: Never Used Alcohol Use Standard Drinks/Week Comments Yes 1.7 (1 standard drink = 0.6 oz pure alco hol) Sex Assigned at Date Recorded Not on file documented as of this encounter Progress Notes Dante Middleton RN - 01/22/2020 12:12 PM EDT [facility] lab contacted, voicemail left requesting patient's latest lab results please be faxed to [facility] ID department. Patient reports had dropped off a [employer] sputum specimen there x3 week ago, but no resultshave been forwarded to [facility] as of yet. documented in this encounter Plan of Treatment Upcoming Encounters Date Type Specialty Care Team Description 02/24/2023 Hospital Encounter Gastroenterology Cristofer Armando MD [facility] GASTROENTEROLOGY [place], [place] [address] (Wo rk) Scheduled Procedures Name Priority Associated Diagnoses Date/Time COLONOSCOPY, DIAGNOSTIC H/O DIVERTICULITIS 10 DIALLO RVEILLANCE documented as of this encounter Visit Diagnoses Not on filedocumented in this encounter Care Teams Maxillofacial Surgeon Relationship Specialty Start Date End Date Tony Fuller PA PCP - General 09/29/13 03/01/20 [address] [place] [address] documented as of this encounter
--- OUTSIDE RECORDS SUMMARY | 2022-02-08 09:07 | XMS_ITS | Encounter Summary ---
:1945 Author Organization [facility] [place] [address] Care Team Providers Name Role Phone Tony Fuller Primary Care Provider Reason for Referral Diagnostic Test (Routine) - Authorized Specialty Diagnoses / Procedures Referred By Contact Refer red To Contact Radiology Diagnoses Pulmonary Mycobacterium avium complex (MAC) infection Bronchiectasis without complication Fatigue, unspecified type Frank James MD Procedures CT Chest wo Contrast (Generic) [facility] [place] [address] Referral ID Status Reason Start Expiration Visits Visits Date Date Requested Authorized [id number] Authorized Specialty 10/31/2021 05/02/2023 1 1 Service Requested Encounter Details Date Type Department Care Team Description 10/31/2021 TH Visit Pulmonology at [facility] Jacob, Pulmonary Mycobacterium aviu m complex (MAC) infection; (TeleHealth) [facility] Frank Mast MD Bronchiectasis without complication; [facility], unspecified type [facility] [id number] PULMONARY [phone] [place] [address] Social History Tobacco Use Types Packs/Day Years Used Date Former Smoker Quit: 09/29/18 84 Smokeless Tobacco: Never Used Alcohol Use Standard Drinks/Week Comments Yes 1.7 (1 standard drink = 0.6 oz pure alco hol) Sex Assigned at Date Recorded Not on file documented as of this encounter Progress Notes Frank James MD - 10/31/2021 10:30 AM EDT Images from the original note were not included. [facility] Section of Pulmonary and Critical Care Medicine Outpatient Consultation Follow-up Date of Encounter: 10/30/2021 This was a telehealth virtual visit. PCP: ALEXANDRE Griffin Pulmonary Problem List: ?? 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 Diagnosed by bronchoscopy sample 02/11/2007 ?? Treated [id number] with triple ABx therapy > improved CT and symptoms ?? Recurrence December 2016 - weight loss, fatigue, no cough. CT 06/25/17 with bronchiectatic diseaes and nodular opacities in upper lobes > Bronchoscopy 07/03/17 smear negative, culture positive MAC ?? October 2017 - started [id number] c/b PSVT and changed clarithro to azithro. ?? April 2019 - worsened airflow obstruction and no improvement in imaging. Bronch 09/2018 had shown few aspergillus, NURF and smear negative MAC. Intensified airway clearance and Aricayse (04/29/19) though stopped due to cough ?? Intensified to daily [id number] ?? June 28, 2020 - stopped therapy ?? Airway hyperreactivity - started Advair HFA (February 2020); stopped in 2020 as no clear benefit and felt some lightheadedness Brief Summary Mandy Foreman is a 76 y.o. 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 See details above. She is followed in ID by Dr. Vegasd was formerly followed in Pulmonary Clinic by Dr. Gomez. She completed 12 months of therapy on 06/28/2020 after relapse and has been off therapy since. I last saw Ms. Foreman on 06/29/2021. At that time, she reported improved energy level. She had submitted a sputum sample to [facility] 3 weeks prior though I had not seen results. She also reported feeling like she had a bit of an increase in her cough but not nearly as bad as when she had known MAC -dry cough more often at night. Symptoms at time of neck diagnosis were extreme fatigue, notable weight loss, and little cough. She reported she was gaining weight and denied fevers, chills, or night sweats. I had low concern for recurrent MAC at that time. He plans to follow-up on recent sputum sample, monitor symptoms, and consider repeat sputum sample versus bronchoscopy with BAL if recrudescence of purulent sputum, fevers, weight loss, night sweats. Since last visit: -CT repeated on 02/06/21 at [facility] - unchanged from scan in September with scattered nodules, bronchiectasis and small areas of TIB which was also unchanged from the prior January 2020. Has had more energy over the last few weeks Today: Feeling well over the last several months without any real change in respiratory symptoms. She has no appreciable sputum production and denies recent fevers, chills, night sweats, weight change. She isstill feeling quite fatigued however. She has had some laboratory based evaluation for fatigue with her primary care provider, though she is not sure of the exact details of this evaluation. Of note extreme fatigue was one of her sentinel symptoms at the time of original MAC diagnosis at which time she had minimal cough and sputum production. She submitted a sputum sample to [facility] in September - I received confirmation that it was received but no results as yet. Her prior sputum sample from May there was negative. Pulmonary Medications: None Review of Systems: Respiratory [...] necessary. Current Medications: Current Outpatient Medications: ??? omeprazole (PriLOSEC) 20 [...] neg ?? December 31 2019 neg neg [facility] - scanned doc 09/03/20 neg neg Via phone call 10/01/2018: clarithromycin JENNIFER 1 (S), AMK 8, LZD 16 (I), EMB 4, RMP 4, RFB <0.25 Chest Imaging: CT Chest 02/06/21 - stable scattered areas of mild bronchiectasis, TIB, and nodules CT Chest wo 10/03/20 ([facility] - Report only) - appearance of lung lazaro unchanged from January 2020... nonew infiltrates or nodules Pulmonary Function Tests: Date FVC FVC % FEV1 FEV1 % FEV1/VC TLC TLC % DLCO DLCO% Comments 04/17/19 2.29 97 1.39 76 61 - - 17.12 101 My interpretation of most recent PFTs: Mild obstruction with normal diffusion. Diagnoses MAC - treated, relapsed, nodulal bronchiectatic, macrolide-sensitive Fatigue Bronchiectasis Impression: Overall, Ms. Foreman is largely doing quite well now ~1.5 years after treatment for recurrent MAC. She has no respiratory symptoms, but continues to struggle with fatigue of unclear cause. Given that extreme fatigue was one of the sentinel symptoms at the time of her initial MAC diagnosis, this raises some concern about the past that recrudescent MAC could be possible. Arguing against that, would be of any respiratory symptoms or other constitutional symptoms at this time, stable chest imaging last January, and negative AFB sputum's for months. I am uncertain what other evaluation for her fatigue she has had at this point but certainly there could be other causes. We discussed the plan of repeating cross-sectional imaging to assess for any change there, if imaging findings suggest the possibility of recrudescent MAC or if she were to develop other concerning symptoms beyond fatigue including fevers,chills, night sweats, purulent sputum would then consider bronchoscopy for more sensitive sampling to evaluate for NTM infection. Recommendations: -Obtain results from AFB sputum sent to [facility] Hospital in September -Repeat CT chest without at her convenience the next couple weeks at [facility] with [place] to [place] -As above, if concerning imaging findings or new purulent sputum, fevers, weight loss, night sweats would favor bronchoscopy with BAL assuming no positive expectorated sputum samples in the interim. -Follow up in clinic TBD pending results of CT scan. Call sooner should new questions or concerning symptoms arise. I spent 40 minutes on this encounter on 10/30/2021 including [id number]-ch-[id number] time, counseling, reviewingrecords, and documenting as detailed in my note above. Frank James MD [facility] Contact Lens Manufacturermortgage or loan underwriter Pulmonary [place] [address] [email or web address] documented in this encounter Plan of Treatment Upcoming Encounters Date Type Specialty Care Team Description 02/24/2023 Hospital Encounter Gastroenterology Cristofer Armando MD [facility] DR GASTROENTEROLOGY [place], [place] [address] (Wo rk) Scheduled Orders Name Type Priority Associated Diagnoses Order S chedule CT Chest wo Contrast Imaging Routine Pulmonary Mycobacter ium Expected: 10/31/2021, (Generic) avium complex (MAC) Expires: 10/31/2022 infection Bronchiectasis without complication Fatigue, unspecified type Scheduled Procedures Name Priority Associated Diagnoses Date/Time COLONOSCOPY, DIAGNOSTIC H/O DIVERTICULITIS 10 DIALLO RVEILLANCE documented as of this encounter Visit Diagnoses Diagnosis Pulmonary Mycobacterium avium complex (M AC) infection Pulmonary diseases due to other mycobact eria Bronchiectasis without complication Bronchiectasis without acute exacerbatio n Fatigue, unspecified type documented in this encounter Care Teams Mutuel Machine Operator Relationship Specialty Start Date End Date Tony Fuller PA PCP - General Family Medicine 04/06/20 [address] [place] [address] documented as of this encounter
--- OUTSIDE RECORDS SUMMARY | 2022-02-08 09:07 | XMS_ITS | Encounter Summary ---
:1945 Author Organization [facility] [place] [address] Care Team Providers Name Role Phone Tony Fuller Primary Care Provider Encounter Details Date Type Department Care Team Description 01/07/2020 Telephone Infectious Disease a t [facility] Dante Middleton, [place] [address] Social History Tobacco Use Types Packs/Day Years Used Date Former Smoker Quit: 09/29/18 85 Smokeless Tobacco: Never Used Alcohol Use Standard Drinks/Week Comments Yes 1.7 (1 standard drink = 0.6 oz pure alco hol) Sex Assigned at Date Recorded Not on file documented as of this encounter Miscellaneous Notes Telephone Encounter - Dante Middleton RN - 01/07/2020 5:00 PM EDT Mandy Foreman calling today to report Increased dyspnea upon exertion. She elaborates to state thatit is not so much affecting activity of daily living, she feels that her energy level is decreased, a little lower. Denies cough, and reports does not really produce sputum as much any more (though did produce a sample and submitted to [facility] (@ 2 weeks ago, RN will call for fax/results). Mandy also states recently saw her PCP and had labwork(Dr. Fuller of [facility] in [place], [place])/ Plan: -Any worsening signs/symtpoms to seek emergency care -Have scheduled for FUV (THFV if possible) -Results for sputum and labwork faxed to [facility] documented in this encounter Plan of Treatment Upcoming Encounters Date Type Specialty Care Team Description 02/24/2023 Hospital Encounter Gastroenterology Cristofer Armando MD [facility] ER DR GASTROENTEROLOGY [place], [place] [address] (Wo rk) Scheduled Procedures Name Priority Associated Diagnoses Date/Time COLONOSCOPY, DIAGNOSTIC H/O DIVERTICULITIS 10 DIALLO RVEILLANCE documented as of this encounter Visit Diagnoses Not on filedocumented in this encounter Care Teams Event Marketing Representative Relationship Specialty Start Date End Date Tony Fuller PA PCP - General 09/29/13 03/01/20 [address] [place] [address] documented as of this encounter
--- OUTSIDE RECORDS SUMMARY | 2022-02-08 09:07 | XMS_ITS | Encounter Summary ---
:1945 Author Organization [facility] [place] [address] Care Team Providers Name Role Phone Tony Fuller Primary Care Provider Encounter Details Date Type Department Care Team Description 02/16/2020 TH Visit Infectious Disease Genna Sheriff Myco bacterium avium infection; (TeleHealth) at [facility] [place] Medication monitoring encounter [facility] [place] [address] [place] [address] [phone] Social History Tobacco Use Types Packs/Day Years Used Date Former Smoker Quit: 09/29/18 85 Smokeless Tobacco: Never Used Alcohol Use Standard Drinks/Week Comments Yes 1.7 (1 standard drink = 0.6 oz pure alco hol) Sex Assigned at Date Recorded Not on file documented as of this encounter Progress Notes Dante Middleton RN - 02/16/2020 2:00 PM EDT NTM Nurse Intake Pre-Charting for Follow Up Visit Telephone Office Visits-Please use home/landline: #[phone] ?? From last RN visit note: Mandy Foreman??is a 73 y.o.??female??previous smoker (quit 1984), with a history of recurrent respiratory infections, bronchiectasis, ROSY, and recurrent MAC infection. ?? NTM Clinic, pre-charting, reviewed with patient: meds, allergies, problem list, and questions/concerns she has for NTM his clinic team. Is scheduled for Telehealth/Telephone Office Visit with Dr. Genna Sheriff (@ 14:00, 02/16/20). Patient prefers Telephone Office Visit for today's encounters, home telephone #[phone]. ?? Talking points: ?? Mandy Foreman reports no new changes from her baseline. She does feel has had slight increased shortness of breath (SOB)-She feels that this is becoming more noticeable. She continues to walk 1.5 miles around her neighborhood, being careful to observe social distancing. Symptom-duque: No fevers, no night sweats, no cough, rarely produces sputum. ?? Continues on triple antibiotic therapy: Azithromycin (250 mg q.daily), Ethambutol (800 mg q.daily)-she does see an lining layer q.yearlyand conducts self-monitoring (will mail red/green color block cards), and Rifampin (600 mg q.daily). Not tolerant of Arikayce. Reports tolerating her triple regimen well, with very good adherence. No dizziness/cardiovascular side effects reported. Patient requests prescriptions be sent to: [address], (Phone), for refills, as #90 day supply (to help to decrease travel from home during COVID-19 pandemic). ?? Labs: scanned docs specimens collected 01/01/20. To discuss risk/benefit for forgoing labs-should still go for standing q.monthly labs? Active orders faxed to [facility] lab (CBC, CMP, AFB sputum). ?? AFB Sputum: Per patient does not produce very often. [facility] has December-not finalized yet. Future plan for bronch/surviellance monitoring? EKG: last done 2018, NSR, QTc 427. Reports did see a mandarin teacher at the beginning of the summer [facility] (Dr. Edwin Villeda). ?? CT scan/imaging. Original plan to have done October 2019. Can this be pushed out a few months, possible to Summer 2019, patient would like to have done at [facility]. Last CT 06/16/2019: IMPRESSION 1. ??Findings consistent with ongoing HARPREET infection bilaterally with slightly increased tree-in-bud opacities within the right middle lobe and lateral left upper lobe. 2. ??Otherwise, similar findings of bilateral tree-in-bud opacities with mild bronchiectasis and bronchial wall thickening. ?? Patient had recent CT scan performed at [facility] (02/04/2020). Exam report is auto- finalizing at this time in eDH, images are available however, and paper report faxed (will be scanned to eDH/medical records). ?? Impression per 02/04/2020 CT Chest without Contrast: ?? 1. Stable pulmonary findings compared to the examination from 06/15/2019. 2. No acute pulmonary process. Genna Sheriff MD - 02/16/2020 2:00 PM EDT Telephone Follow-Up Visit This visit replaces an in person visit due to the COVID-19 pandemic. Patient verbally consents to this telephone visit and understands that this visit may be billed, similar to a clinic office visit. ID Outpatient Follow Up - Nontuberculous Mycobacterial (NTM) Infection Identification: Chronic cough, recurrent MAC infection Relevant history: Mandy Foreman is a 74 y.o. female previous smoker (quit 1984), with a history of recurrent respiratory infections, bronchiectasis, and ROSY, who had MAC identified through 02/11/2007 bronch and underwent treatment MAC [id number] with guidelines-based triple antibiotics. She does visit [place] in the winter and has symptoms of heartburn. She had improved CT and symptomatic response (weight gain, reduced rare cough, decreased frequency of bronchitis), with course complicated by small volume hemoptysis and PSVT. At one year, she underwent bronch which was AFB negative, then took another 6m therapy for total 18m. In December 2016, she began to lose weight, experience increased fatigue, no F /C/NS, mild MUNGUIA, but still had no sustained cough. Repeat CT 06/25/2017 showed bronchiectatic disease and nodular opacities in her upper lobes and then repeat bronch 07/03/2017 showed relapse with smear negative culture positive MAC. She was restarted on same triple therapy, with another episode of PSVT on [...] obstruction to FEV1 72%. Her clinician in [place] left so she transferred care here on 04/14/2019. We set her up for intensified airway clearance and Aricayse which she started 04/29 but had to stop after a few weeks becauseof cough. We intensified her regimen by moving to daily. Interval Since last seen 10/19/19. She has been tolerating azithro 250 qd and no recurrent troubles with sense of arrhythmias, following with Dr. Villeda in Cardiology. She is still also taking RMP and EMB (both daily now). She is not noting any side effects from the meds. She does however feel more SOB which on further questioning is really MUNGUIA. She gets winded when she moves too fast (like hurrying to her mailbox), and hears wheezing at those times, both of which is better with albuterol inhaler. She has beenon symbicort in past, but this does not agree with her. She also increasingly feels fatigue with anyexertion. Still no cough and no signs of infection like fevers or NS or weight loss (stable). She wants to discuss her CT results, but I can only tell her what I see on the film, and ask her to await full result once the radiology report comes to us. ROS Otherwise negative Physical Exam Not examined SOC Moving to smaller house in same town Lab Results Component Value Date WBC 7.5 [...] her report 07/03/2017 neg MAC DST above December 2019 NA NA 10/01/2018:clarithromycin JENNIFER 1 (S), AMK 8, LZD 16 (I), EMB 4, RMP 4, RFB <0.25 Other Studies: PFTs as above - not done since Apr 17, 2019. I see a standing order to do repeat. She had a CCT 06/15/2019: IMPRESSION 1. 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 2. Otherwise, similar findings of bilateral tree-in-bud opacities with mild bronchiectasis and bronchial wall thickening. ?? Impression: Mandy Foreman is a 74 y.o. 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 Her provider had obtained Aricayse for her, but announced he was leaving and withdrew the prior auth. She tried it through urgent engagement here, but was not able to take it. We increased her dosing frequency of the triple regimen she was on, and she has done very well with it. Part of that is likely improving airway clearance with Dr. Gomez. Given her improvement in symptoms and reluctance to try a new drug (like clofazimine), we will continue triple daily regimen. We discussed the importance of avoiding infection with SARS-COV-2 which causes COVID-19. We will continue to meet through telephone. Recommendations: ?? Schedule with Dr. Gomez for what sounds like worsening reactive airways. She will do the scheduled PFT ahead of visit. ?? Call her back with final CT report. If any new areas of disease, would consider intensifying. ?? Get sputum result from December ?? Continue current weight based NTM therapy: ?? Azithromycin 250 mg qd ?? Ethambutol 800 mg qd ?? Rifampin 600 mg qd ?? For treatment safety ?? CBC, CMP but prefers to stretch out to q2m - prefers to do at [facility] ?? Self-monitoring for detection of any EMB-associated ocular toxicity ?? Delaying repeat EKG also because of COVID ?? Not tolerant of Aricayse, could consider clofazimine, but she is reluctant since feels improved. ?? For certainty on sputum clearance, may eventually need bronch through Dr. Gomez's office, but clearly delay now ?? Flu vaccine more important than ever this year, and she is prepared to get it locally ?? RTC 3 months ?? Will call if develops new symptoms or has questions. ?? Note to ALEXANDRE Holcomb; Murphy Rivas MD Section of Infectious Disease and [facility] [email or web address] [phone] minutes were spent in this telephone encounter, during which 20 minutes was spent counseling about NTM infection, treatment, medication side effects and prognosis. All of the patient's questions were answered. documented in this encounter Plan of Treatment Upcoming Encounters Date Type Specialty Care Team Description 02/24/2023 Hospital Encounter Gastroenterology Cristofer Armando MD [facility] GASTROENTEROLOGY [place], [place] [address] (Wo rk) Scheduled Procedures Name Priority Associated Diagnoses Date/Time COLONOSCOPY, DIAGNOSTIC H/O DIVERTICULITIS 10 DIALLO RVEILLANCE documented as of this encounter Visit Diagnoses Diagnosis Mycobacterium avium infection Pulmonary diseases due to other mycobact eria Medication monitoring encounter Encounter for therapeutic drug monitorin g documented in this encounter Care Teams Interpreter Deaf Relationship Specialty Start Date End Date Tony Fuller PA PCP - General 09/29/13 03/01/20 [address] [place] [address] documented as of this encounter
--- OUTSIDE RECORDS SUMMARY | 2022-02-08 09:07 | XMS_ITS | Encounter Summary ---
:1945 Author Organization [facility] [address] Care Team Providers Name Role Phone Tony Fuller Primary Care Provider Encounter Details Date Type Department Care Team Description 09/14/2020 TH Visit Infectious Disease Genna Sheriff Myco bacterium avium (TeleHealth) [place] [facility] [place] [address] [place] [address] [phone] Social History Tobacco Use Types Packs/Day Years Used Date Former Smoker Quit: 09/29/18 85 Smokeless Tobacco: Never Used Alcohol Use Standard Drinks/Week Comments Yes 1.7 (1 standard drink = 0.6 oz pure alco hol) Sex Assigned at Date Recorded Not on file documented as of this encounter Progress Notes Genna Sheriff MD - 09/14/2020 1:30 PM EST Telehealth Follow-Up Visit This telehealth visit replaces an in person visit due to the COVID-19 pandemic. Patient verbally consents to this TH visit and understands that this visit may be billed, similar to a clinic office visit. The timing and location of participants is noted in the encounter under rooming, as required. The technology was adequate to achieve our goals. ID Outpatient Follow Up - Nontuberculous Mycobacterial (NTM) Infection Identification: Chronic cough, recurrent MAC infection Relevant history: Mandy Foreman is a 75 y.o. female previous smoker (quit 1984), with a history of recurrent respiratory infections, bronchiectasis, and ROSY, who had MAC identified through 02/11/2007 bronch. She underwent treatment for MAC [id number] with guidelines-based triple antibiotics. She had improved [...] 2017, she was restarted on the same [id number] TIW therapy, with another episode of PSVT [...] intensified her regimen by moving to daily oplqtfr-[id number]-[id number] (~Jul 2017 but overall retreatment start October 2017). CT on 02/04/2020 formal interpretation available in scanned docs showing stable disease, especially in RML and lingula. She stopped therapy 06/28/20. Interval Last seen 08/30/20. She is now ~2.5m off therapy. She has already seen Dr. Gomez, and expressed also to him that her chief complaint is overwhelming fatigue. She notes that her sleeping is much much better, but this has not translated to any improvement in fatigue. She will see her PCP. Still no cough and no signs of infection like fevers or NS or weight loss (put on a pound or two). She may be producing more sputum. She submitted a specimen to [facility], and we are hunting up any preliminary information from that. She will produce another when she happens to produce sputum (she has cups at home) She had her second COVID vaccine 09/09. ROS Otherwise negative Physical Exam Not examined. SOC Move to smaller house in same town completed Labs: None new Microbiology: Date Smear Culture Comments 2006 ? MAC 2008 neg neg By her report 07/03/2017 neg MAC DST above 06/10/2019 neg neg December 31 2019 neg neg [facility] - scanned doc 10/01/2018:clarithromycin JENNIFER 1 (S), [...] Foreman is a 75 y.o. female with relapsed macrolide-sensitive smear negative nodular bronchiectatic MAC disease. She was first treated appropriately [id number], and now on nearly 3 years of [...] She knows symptoms of concern. ?? She has produced a sputum which went to [facility] ?? She will try to get another expectorated specimen - has cups but wants to double check the order is available at [facility] ?? We will discuss the results of the sputum when they are available to us. ?? May be a CT can also help us understand this fatigue as well ?? Will call if develops new symptoms ?? Hold a follow up for 2 months, since this fatigue is a possible sentinel symptom of MAC recurrence. ?? CC Murphy Rivas MD Section of Infectious Disease and International Health [phone] minutes were spent in this TOV encounter, during which 20 minutes was spent counseling about NTM infection, treatment, medication side effects and prognosis. All of the patient's questions were answered. documented in this encounter Plan of Treatment Upcoming Encounters Date Type Specialty Care Team Description 02/24/2023 Hospital Encounter Gastroenterology Cristofer Armando MD [facility] GASTROENTEROLOGY [place], [place] [address] (Wo rk) Scheduled Procedures Name Priority Associated Diagnoses Date/Time COLONOSCOPY, DIAGNOSTIC H/O DIVERTICULITIS 10 DIALLO RVEILLANCE documented as of this encounter Visit Diagnoses Diagnosis Mycobacterium avium infection Pulmonary diseases due to other mycobact eria documented in this encounter Care Teams Supervisor Aircraft Maintenance Relationship Specialty Start Date End Date Tony Fuller PA PCP - General Family Medicine 04/06/20 [address] [place] [address] documented as of this encounter
--- OUTSIDE RECORDS SUMMARY | 2022-02-08 09:07 | XMS_ITS | Encounter Summary ---
:1945 Author Organization [facility] [place] [address] Care Team Providers Name Role Phone Tony Fuller Primary Care Provider Encounter Details Date Type Department Care Team Description 04/26/2020 Telephone Pulmonology at [facility] [place] [address] Social History Tobacco Use Types Packs/Day [...] 02/24/2023 Hospital Encounter Gastroenterology Cristofer Armando MD [facility] GASTROENTEROLOGY [place], [place] [address] (Wo rk) Scheduled Procedures Name Priority Associated Diagnoses Date/Time COLONOSCOPY, DIAGNOSTIC H/O DIVERTICULITIS 10 DIALLO RVEILLANCE documented as of this encounter Visit Diagnoses Not on filedocumented in this encounter Care Teams Trust Administrator Relationship Specialty Start Date End Date Tony Fuller PA PCP - General Family Medicine 04/06/20 [address] [place], [place] [id number] documented as of this encounter
--- OUTSIDE RECORDS SUMMARY | 2022-02-08 09:07 | XMS_ITS | Encounter Summary ---
:1945 Author Organization [facility] [place] [address] Care Team Providers Name Role Phone Tony Fuller Primary Care Provider Reason for Visit Reason Onset Date Comments Medication Refill 07/29/2019 Encounter Details Date Type Department Care Team Description 07/29/2019 Refill Infectious Disease at Dante Middleton RN Mycobacterium avium [facility] [place] [address] Social History Tobacco Use Types Packs/Day [...] MD [facility] DR GASTROENTEROLOGY [place], [place] [address] (Wo rk) Scheduled Procedures Name Priority Associated Diagnoses Date/Time COLONOSCOPY, DIAGNOSTIC H/O DIVERTICULITIS 10 DIALLO RVEILLANCE documented as of this encounter Visit Diagnoses Diagnosis Mycobacterium avium infection Pulmonary diseases due to other mycobact eria documented in this encounter Care Teams General Farmer Relationship Specialty Start Date End Date Tony Fuller PA PCP - General 09/29/13 03/01/20 [address] [place] [address] documented as of this encounter
--- OUTSIDE RECORDS SUMMARY | 2022-02-08 09:08 | XMS_ITS | Encounter Summary ---
:1945 Author Organization [facility] [place] [address] Care Team Providers Name Role Phone Tony Fuller Primary Care Provider Reason for Referral Consultation (Routine) - Closed Specialty Diagnoses / Procedures Referred By Contact Refer red To Contact Sleep Center Diagnoses Obstructive sleep apnea treated with continuous positive airway pressure (CPAP) Emma Gomez MD [facility] Sleep Medicine [facility] [address] [place] [place] [address] [place] [address] Referral ID Status Reason Start Date Expiration Date Visits V isits Requested Authorized [id number] Closed Consult, 04/17/2019 04/16/2020 1 1 Test & Treat Reason for Visit Reason Comments Referral Encounter Details Date Type Department Care Team Description 04/17/2019 Office Visit Pulmonology at [facility] Emma Gomez, Chronic obstructive pulmonar y disease, unspecified COPD type; [facility] Mild obstructive sleep apnea treated wit h continuous positive airway pressure (CPAP); [facility] MEDICAL [facility], unspecified type; [place], [place] CENTER Nodular bronchiectatic pulmonary Mycobac terium avium complex (MAC) infection; [id number] PULMONARY Bronchiectasis without compl ication [phone] [place], [place] [address] Social History Tobacco Use Types Packs/Day Years Used Date Former Smoker Quit: 09/29/18 85 Smokeless Tobacco: Never Used Alcohol Use Standard Drinks/Week Comments Yes 1.7 (1 standard drink = 0.6 oz pure alco hol) Sex Assigned at Date Recorded Not on file documented as of this encounter Last Filed Vital Signs Vital Sign Reading Time Taken Comments Blood Pressure 135/68 04/17/2019 12:37 PM EDT Pulse 87 04/17/2019 12:37 PM EDT Temperature - - Respiratory Rate 18 04/17/2019 12:37 PM EDT Oxygen Saturation 96% 04/17/2019 12:37 PM EDT Inhaled Oxygen Concentration - - Weight 59.9 kg (132 lb) 04/17/2019 12:37 PM EDT Height 153.3 cm (5' 0.35) 04/17/2019 12:37 PM EDT Body Mass Index 25.48 04/17/2019 12:37 PM EDT documented in this encounter Patient Instructions Patient InstructionsEmma Gomez MD - 04/17/2019 1:00 PM EDT ?? Fatigue - could be infection related (MAC), but would consider other diagnoses. PCP should check thyroid blood work. I'm referring you to sleep medicine at [facility] ([facility]) for appraisal of your sleep apnea (another cause of fatigue). You are not anemic based on blood work checked this week. ?? Lung function is stable today. ?? Aerobika - airway hygiene exercise - could do 2-3 repetitions of 5 blows through device in the morning to clear mucus from airways. This may or may not be very helpful, but depends on mucus burden. ?? Start albuterol HFA, 2 puffs inhaled in the morning through the spacer tube (AeroChamber). Let's get this going for a week before starting the Arikayce. ?? We will go ahead and try the Arikayce. I will check with Dr. Sheriff and Dante Middleton about logistics. ?? Follow-up in our bronchiectasis clinic (tentatively Saturday) documented in this encounter Progress Notes Emma Gomez MD - 04/17/2019 1:00 PM EDT Images from the original note were not included. [facility] Section of Pulmonary and Critical Care Medicine New Patient Evaluation Date of Encounter: 04/17/2019 Reason for Evaluation: I was asked by ALEXANDRE Holcomb to evaluate Mandy Foreman for bronchiectasis/pulmonary MAC infection. I independently interviewed and examined the patient in the office and have reviewed available records. 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 She hasmost recently been followed by Dr. Dolores Villalobos in [place], but he is no longer practicing in that area. She was also followed by Dr. Ta Lorenzo in our section for an initial bout of pulmonary MAC infection in the mid for which she received standard 3 drug therapy. Mandy has given me very detailed notes about her medical history with . In December 2016, she started to have unintentional weight loss, occasional cough, and profound fatigue. She had a chest CT scan showing nodular opacities in the upper lobes. She had a bronchoscopy with BAL on July 03, 2017 showing growth of MAC in the lavage fluid from the left upper lobe. The isolate was susceptible to clarithromycin with an JENNIFER of 4 mcg/mL. The JENNIFER for rifampin was 8 mcg/mL. The JENNIFER for ethambutol was4 mcg/mL. Since that time, she has been treated with azithromycin, rifampin, and ethambutol. Her most recent respiratory tract cultures are from bronchoscopy on October 01, 2018, which still showed smear negative but culture positive MAC. She has historically had mild airflow obstruction without prominent airway hyperreactivity. She has been on Symbicort HFA and albuterol HFA without much symptomatic benefit. She met with Dr. Clara Sheriff last week for input about MAC treatment. There had been a plan initiated by her local technical administrative assistant (Dr. Paul Gomez) for Mandy to start Arikayce, but the plan was puton hold because Dr. Gomez left her local hospital. Based on my review of Dr. Sheriff's office note, it sounds like she and Mandy discussed an option of IV amikacin for treatment intensification or initiation of the Arikayce. They also talked about some other oral medications for MAC, including clofazimine. I note that Mandy has a diagnosis of obstructive sleep apnea. Dr. Villalobos also treated her for this problem with CPAP. ROSY was diagnosed in March 2012. Her initial AHI was 14.4 with mild hypoxemia (reed SPO2 of 85%). She has been treated with auto titrating CPAP with settings of 7-11 cmH2O. Her last CPAP titration was on July 20, 2018 in [place]. Please see scanned documents for details. Therewere periodic limb movements. Apneas were well controlled on CPAP at 8 cmH2O. The interface was nasal CPAP (ResMed P 10, size extra small with Pau red chinstrap). QOL-B 04/17/2019 Performing vigorous activities, such as gardening or exercising No difficulty Carrying heavy things, such as books, groceries, or shopping bags No difficulty Limit vigorous activities, such as walking or exercising A little true Physical Functioning Domain 88.88 Stay at home more than I want to Not at all true Lead a normal life Completely true Trouble keeping up with your job, housework, or other daily activities? You have managed to keep up but it's been difficult Role Functioning Domain 88.88 You felt tired Often You felt energetic Sometimes You felt exhausted Often Vitality Domain 33.33 You felt sad Sometimes Emotional Functioning Domain Incomplete Worried about exposure to others who are sick Not at all true Social Functioning Domain Incomplete Treatment [place] Domain Incomplete You felt well Often Your health is: Good Concerned that my health will get worse Completely true Feel healthy Mostly true Health Perceptions Domain 50 Congestion in your chest Not at all Cough up mucus Not at all Shortness of breath with housework or yardwork Sometimes Have you had chest pain Never Woken up because of coughing Never Respiratory Symptoms Domain 93.33 Past Medical and Surgical History: Past Medical History: Diagnosis Date ??? [...] 04/17/2019 ??? Thyroid disease Past Surgical History: Procedure Laterality Date ??? BRONCHOSCOPY Bilateral 07/03/2017 Dr. Dolores Lewis) - MAC/LMA ??? BRONCHOSCOPY Bilateral 10/01/2018 Dr. Dolores Lewis) - MAC/LMA ??? SECTION ??? CT BIOPSY-THYROID ??? HEMICOLECTOMY indicated for diverticulosis ??? PRO COLONOSCOPY, DIAGNOSTIC 02/24/2013 COLONOSCOPY, DIAGNOSTIC performed by Tejinder Armando MD at [facility] ENDOSCOPY ??? TONSILLECTOMY AND ADENOIDECTOMY Family History: Family History Problem (# of Occurrences) Relation (Name,Age of Onset) Diabetes (1) Mother Rheumatoid Arthritis (1) Mother Social and Occupational History: Social History Socioeconomic History ??? Marital status: Spouse name: None ??? Number of children: None ??? Years of education: None ??? Highest education level: None Occupational History ??? None Social Needs ??? Financial resource strain: None ??? Food insecurity: Worry: None Inability: None ??? Transportation needs: Medical: None Non-medical: None Tobacco Use ??? Smoking status: Former Smoker Last attempt to quit: 09/29/1984 Years since quittin.5 ??? Smokeless tobacco: Never Used Substance and Sexual Activity ??? Alcohol use: Yes Alcohol/week: 1.7 standard drinks Types: 2 drink(s) per week ??? Drug use: No ??? Sexual activity: None Lifestyle ??? Physical activity: Days per week: None Minutes per session: None ??? Stress: None Relationships ??? Social connections: Talks on phone: None Gets together: None Attends jehovah's witness service: None Active member of club or organization: None Attends meetings of clubs or organizations: None Relationship status: None ??? Intimate partner violence: Fear of current or ex partner: None Emotionally abused: None Physically abused: None Forced sexual activity: None Other Topics Concern ??? None Social History Narrative ??? None Current Medications: Medications 04/17/19 1302 Medication Sig Taking? ethambutol (MYAMBUTOL) 400 mg Tablet Yes rifAMPin (RIFADIN) 300 mg Capsule 300 mg 2 times daily. Yes azithromycin (ZITHROMAX) 500 mg Tablet 500 mg daily. Yes diazePAM (VALIUM) 5 mg Tablet 5 mg. Yes venlafaxine (EFFEXOR-XR) 37.5 mg Capsule, Sust. Release 24 hr daily. Yes omeprazole (PRILOSEC) 40 mg Capsule, Delayed Release(E.C.) Take 1 capsule by mouth daily. Yes ibuprofen (ADVIL;MOTRIN) 800 mg Tablet Take 1 tablet by mouth 3 times daily as needed. Yes temazepam (RESTORIL) 15 mg capsule Take 15 mg by mouth nightly as needed. Yes escitalopram oxalate (LEXAPRO) 10 mg Tablet Take 1 tablet by mouth daily. tretinoin (RETIN-A) 0.05 % cream Apply topically nightly. Physician will not do prior authorization Patient not taking: Reported on 04/14/2019 propranolol (INDERAL) 40 mg tablet Take 80 mg by mouth daily. cyanocobalamin, vitamin B-12, 100 mcg tablet Take 100 mcg by mouth daily. Adverse Drug Reactions: Allergies Allergen Reactions ??? Naproxen Sodium Other (See Comments) facial swelling ??? Oxycodone Hcl Nausea And Vomiting ??? Pentazocine-Naloxone Other (See Comments) rapid HR ??? Propoxyphene Hcl Other (See Comments) facial swelling Review of Systems: Review of Systems Constitution: Positive for malaise/fatigue. Negative for decreased appetite, fever and night sweats. HENT: Negative for hearing loss, hoarse voice and sore throat. Eyes: Negative for visual disturbance. Respiratory: Negative for cough, hemoptysis, shortness of breath, sputum production and wheezing. Endocrine: Negative for cold intolerance and heat intolerance. Hematologic/Lymphatic: Negative for adenopathy. Does not bruise/bleed easily. Skin: Negative for nail changes and rash. Musculoskeletal: Negative for arthritis and myalgias. Gastrointestinal: Negative for constipation, diarrhea, dysphagia, heartburn, nausea and vomiting. Neurological: Positive for headaches. Negative for excessive daytime sleepiness, focal weakness, loss of balance and sensory change. Psychiatric/Behavioral: Negative for depression. The patient is not nervous/anxious. Allergic/Immunologic: Negative for environmental allergies and hives. All other systems reviewed and are negative. Physical Examination: BP 135/68 Pulse 87 Resp 18 Ht 153.3 cm (5' 0.35) Wt 59.9 kg (132 lb) SpO2 96% BMI 25.48kg/m?? GENERAL APPEARANCE: Well-appearing woman in no distress; good nutritional status; cleared throat a couple of times; no sputum production in office. HEENT: Good dentition; anicteric sclerae; normal nasal mucosa. NECK: Thyroidectomy/surgical scar; supple; no lymphadenopathy CHEST: Distant expiratory wheeze in mid-lazaro posteriorly; no rhonchi. HEART: Regular rhythm, no murmur ABDOMEN: Deferred. EXTREMITY: No digital clubbing, edema, or cyanosis. SKIN: No psoriasis or eczema. Diagnostic Testing: IMAGING: SPIROMETRY: PFT Results Office Visit from 04/17/2019 in Pulmonology at [facility] PFT Results FEV1 (L) 1.39 liters FEV1 (%) 76 FVC (L) 2.29 liters FVC (%) 97 FEF 25-75 (L) 0.62 FEF 25-75 (%) 39 FEV1/FVC (absolute) 0.61 FEV1/FVC (%) 60.7 % Additional PFT Data (if needed) Uncorrected DLCO (ml/min/mm Hg) 17.1 DLCO (%) 101 % Interpretation Obstruction, Normal diffusion [Mild obstruction] CULTURES: PERTINENT LABS: Metabolic Parameters Lab Results Component [...] 4.7 04/14/2019 Coagulation Parameters Diabetes Laboratory Tests Impression / Plan of Care: Problem List Items Addressed This Visit Bronchiectasis We discussed the pathophysiology of bronchiectasis, including the cycle of injury, infection, and inflammation. We talked about the importance of bronchial hygiene. I gave her an Aerobika variable positive expiratory pressure device from the clinic supply and instructed her in its use. I told her that doing 2 repetitions of 5 forced exhalations to reserve volume (RV) in the mornings could promote mucus clearance. We did not talk about nebulized hypertonic saline because I think that this medicationcould be more provocative than beneficial to her airways. I provided her with an AeroChamber from the clinic supply and instructed her in its use. I would like her to start using albuterol HFA, 2 puffs inhaled in the morning prior to her Arikayce dose in hopes of prophylaxing against bronchospasm. Chronic airflow obstruction Relevant Medications albuterol (VENTOLIN HFA) 90 mcg/actuation HFA Aerosol Inhaler Fatigue I would like her to speak with her PCP about a work-up for thyroid disease. She is not anemic basedon CBC from a few days ago. We will get her connected with sleep medicine to ensure that her ROSY is adequately treated. Mild obstructive sleep apnea treated with continuous positive airway pressure (CPAP) Mandy reported some problems with fatigue today. I would like her to get connected with sleep medicine here at [facility] for ongoing treatment of ROSY. The aforementioned fatigue could reflect undertreated ROSY or another condition such as the pulmonary MAC infection itself or hypothyroidism. She is amenable to referral to sleep medicine. 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 She has spoken with Dr. Sheriff about treatment options. My general impression at this point is that she has a relatively modest attributable respiratory symptom burden and that she has had more prominent constitutional symptoms over the years as manifestations of her chronic chest infection. I told her that we can view treatment goals with respect to symptomatic improvement and microbiologic cure, both of which are obviously desirable but sometimesunattainable. She seems to be keen on increasing treatment intensity, and I think that she would much prefer to start Arikayce instead of IV amikacin. I again reviewed the potential side effects of Arikayce with her, including wheezing, chest tightness, hypophonia, and/or hemoptysis. I will tell Dr. Sheriff that Mandy wants to go ahead with getting the Arikayce through our program. We touched on the potential future need for bronchoscopy to confirm or refute treatment response. Mandy said that she did not tolerate bronchoscopies under moderate sedation conditions, which explains why Dr. Villalobos had enlisted help from anesthesia during his procedures. I told her that we can certainly do any future bronchoscopies with anesthesia to facilitate tolerance. Mandy just had safety laboratory monitoring with Dr. Sheriff. I reviewed the results of those studieswith her in the office today. The CBC is normal. Serum chemistries are all unremarkable, including LFTs. EKG on 04/14/2019 showed a QTC of 427 ms. Follow-up: Saturday shared visit with Dr. Sheriff. EMMA GOMEZ MD 04/17/2019 1:02 PM documented in this encounter Miscellaneous Notes Assessment & Plan Note - Emma Gomez MD - 04/17/2019 6:08 PM EDTAssociated Problem(s): Bronchiectasis We discussed the pathophysiology of bronchiectasis, including the cycle of injury, infection, and inflammation. We talked about the importance of bronchial hygiene. I gave her an Aerobika variable positive expiratory pressure device from the clinic supply and instructed her in its use. I told her thatdoing 2 repetitions of 5 forced exhalations to reserve volume (RV) in the mornings could promote mucus clearance. We did not talk about nebulized hypertonic saline because I think that this medication could be more provocative than beneficial to her airways. I provided her with an AeroChamber from the clinic supply and instructed her in its use. I would like her to start using albuterol HFA, 2 puffs inhaled in the morning prior to her Arikayce dose in hopes of prophylaxing against bronchospasm. Assessment & Plan Note - Emma Gomez MD - 04/17/2019 6:07 PM EDTAssociated Problem(s): Fatigue I would like her to speak with her PCP about a work-up for thyroid disease. She is not anemic based on CBC from a few days ago. We will get her connected with sleep medicine to ensure that her ROSY is adequately treated. Assessment & Plan Note - Emma Gomez MD - 04/17/2019 6:06 PM EDTAssociated Problem(s): Mild obstructive sleep apnea treated with continuous positive airway pressure(CPAP) Mandy reported some problems with fatigue today. I would like her to get connected with sleep medicine here at [facility] for ongoing treatment of ROSY. The aforementioned fatigue could reflect undertreated ROSY or another condition such as the pulmonary MAC infection itself or hypothyroidism. She is amenableto referral to sleep medicine. 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 She has spoken with Dr. Sheriff about treatment options. My general impression at this point is that she has a relatively modest attributable respiratory symptom burden and that she has had more prominent constitutional symptoms over the years as manifestations of her chronic chest infection. I told her that we can view treatment goals with respect tosymptomatic improvement and microbiologic cure, both of which are obviously desirable but sometimes unattainable. She seems to be keen on increasing treatment intensity, and I think that she would much prefer to start Arikayce instead of IV amikacin. I again reviewed the potential side effects of Arikayce with her, including wheezing, chest tightness, hypophonia, and/or hemoptysis. I will tell Dr. Shreiff that Mandy wants to go ahead with getting the Arikayce through our program. We touched on the potential future need for bronchoscopy to confirm or refute treatment response. Mandy said that she did not tolerate bronchoscopies under moderate sedation conditions, which explains why Dr. Villalobos had enlisted help from anesthesia during his procedures. I told her that we can certainly do any future bronchoscopies with anesthesia to facilitate tolerance. Mandy just had safety laboratory monitoring with Dr. Sheriff. I reviewed the results of those studieswith her in the office today. The CBC is normal. Serum chemistries are all unremarkable, including LFTs. EKG on 04/14/2019 showed a QTC of 427 ms. documented in this encounter Plan of Treatment Upcoming Encounters Date Type Specialty Care Team Description 02/24/2023 Hospital Encounter Gastroenterology Cristofer Armando MD [facility] GASTROENTEROLOGY [place], [place] [address] (Wo rk) Scheduled Procedures Name Priority Associated Diagnoses Date/Time COLONOSCOPY, DIAGNOSTIC H/O DIVERTICULITIS [address] Scheduled Referrals Name Type Priority Associated Diagnoses Order S chedule Referral to Sleep Outpatient Referral Routine Mild obstructive Ordered: Disorders Center sleep apnea treated 10/2018 with continuous positive airway pressure (CPAP) documented as of this encounter Visit Diagnoses Diagnosis Chronic obstructive pulmonary disease, u nspecified COPD type Mild obstructive sleep apnea treated wit h continuous positive airway pressure (CPAP) Fatigue, unspecified type Nodular bronchiectatic pulmonary Mycobac terium avium complex (MAC) infection Pulmonary diseases due to other mycobact eria Bronchiectasis without complication Bronchiectasis without acute exacerbatio n documented in this encounter Care Teams Commercial Installer Relationship Specialty Start Date End Date Tony Fuller PA PCP - General 09/29/13 03/01/20 [address] [place] [address] documented as of this encounter
--- OUTSIDE RECORDS SUMMARY | 2022-02-08 09:08 | XMS_ITS | Encounter Summary ---
:1945 Author Organization [facility] [place] [address] Care Team Providers Name Role Phone Tony Fuller Primary Care Provider Reason for Visit Reason Onset Date Comments Other 04/30/2019 [place] Supports Encounter Details Date Type Department Care Team Description 04/30/2019 Telephone Pulmonology at [facility] Jolanta Rose ([facility] Olya Leal ) [place] [address] S, RN [phone] Social History Tobacco Use Types Packs/Day Years Used Date Former Smoker Quit: 09/29/18 84 Smokeless Tobacco: Never Used Alcohol Use Standard Drinks/Week Comments Yes 1.7 (1 standard drink = 0.6 oz pure alco hol) Sex Assigned at Date Recorded Not on file documented as of this encounter Miscellaneous Notes Telephone Encounter - Sue Rose RN - 04/30/2019 10:33 AM EDT Rec'd fax notification of patient's enrollment and updated from [facility] for education and administration of Arikayce medication. Scanned to records, and forwarded to Dr. Gomez. documented in this encounter Plan of Treatment Upcoming Encounters Date Type Specialty Care Team Description 02/24/2023 Hospital Encounter Gastroenterology Cristofer Armando MD [facility] GASTROENTEROLOGY [place], [place] [address] (Wo rk) Scheduled Procedures Name Priority Associated Diagnoses Date/Time COLONOSCOPY, DIAGNOSTIC H/O DIVERTICULITIS 10 DI[address] documented as of this encounter Visit Diagnoses Not on filedocumented in this encounter Care Teams Winch Truck Operator Relationship Specialty Start Date End Date Tony Fuller PA PCP - General 09/29/13 03/01/20 [address] [place] [address] documented as of this encounter
--- OUTSIDE RECORDS SUMMARY | 2022-02-08 09:08 | XMS_ITS | Encounter Summary ---
:1945 [place] [address] Care Team Providers Name Role Phone Tony Fuller Primary Care Provider Reason for Visit Reason Comments Establish Care R thumb pain Encounter Details Date Type Department Care Team Description 07/22/2019 Office Visit [place] [facility] [place]an Cuenca MD [facility] arthritis [facility] [place] [address] ORTHOPAEDIC SURGERY [phone] [place], [place] [address] (Wo rk) Social History Tobacco Use Types Packs/Day Years Used Date Former Smoker Quit: 09/29/18 85 Smokeless Tobacco: Never Used Alcohol Use Standard Drinks/Week Comments Yes 1.7 (1 standard drink = 0.6 oz pure alco hol) Sex Assigned at Date Recorded Not on file documented as of this encounter Last Filed Vital Signs Vital Sign Reading Time Taken Comments Blood Pressure 135/66 07/22/2019 10:39 AM EST Pulse 78 07/22/2019 10:39 AM EST Temperature - - Respiratory Rate - - Oxygen Saturation - - Inhaled Oxygen Concentration - - Weight 58.5 kg (129 lb) 07/22/2019 10:39 AM EST reporte d Height 153.7 cm (5' 0.5) 07/22/2019 10:39 AM EST repor bindu Body Mass Index 24.78 07/22/2019 10:39 AM EST documented in this encounter Progress Notes An, Aryan M, PA - 07/22/2019 10:30 AM EST PATIENT NAME: Mandy Foreman AGE: 73 y.o. MR#: [id number] DATE OF VISIT: 07/22/2019 DATE OF INJURY/ONSET: Chronic STAFF: Dr. Cuenca CHIEF COMPLAINT: Right thumb pain HISTORY OF PRESENT ILLNESS: Ms. Foreman is a right hand dominant 73 y.o. female who comes into clinictoday for evaluation of her right thumb. She last saw Sara Gao PA-C, in 2014 and has continued with conservative management including ibuprofen and splinting as needed. The patient states that her pain is located over the base of her right thumb and though it is not constantly painful does bother her frequently. She also has some catching over the A1 serafni to her thumb and states that it locking every couple of months. The patient has not had a cortisone injection for either issue and denies numbness or tingling. Medications and Allergies were reviewed in [facility]D-[facility] PAST MEDICAL HX: Past Medical History: Diagnosis Date ??? Chronic [...] 04/17/2019 ??? Osteopenia 04/17/2019 ??? Thyroid disease PAST SURGICAL HX: Past Surgical History: Procedure Laterality Date ??? BRONCHOSCOPY Bilateral 07/03/2017 Dr. Dolores Villalobos ([place]) - MAC/LMA ??? BRONCHOSCOPY Bilateral 10/01/2018 Dr. Dolores Villalobos ([place]) - MAC/LMA ??? SECTION ??? CT BIOPSY-THYROID ??? HEMICOLECTOMY indicated for diverticulosis ??? PRO COLONOSCOPY, DIAGNOSTIC 02/24/2013 COLONOSCOPY, DIAGNOSTIC performed by Tejinder Armando MD at [facility] ENDOSCOPY ??? TONSILLECTOMY AND ADENOIDECTOMY SOCIAL HX: Social History Occupational History ??? Not on file Tobacco Use ??? Smoking status: Former Smoker Last attempt to quit: 09/29/1984 Years since quittin.8 ??? Smokeless tobacco: Never Used Substance and Sexual Activity ??? Alcohol use: Yes Alcohol/week: 1.7 standard drinks Types: 2 drink(s) per week ??? Drug use: No ??? Sexual activity: Not on file ROS: Pertinent items are noted in HPI. General Health, Prior Treatments, PreExisting Condition, Health Habits, About You 07/22/2019 PROMIS-10 General Health Good PROMIS-10 Quality of Life Very Good PROMIS-10 Physical Health Good PROMIS-10 Mental Health Very Good PROMIS-10 Social Activity Excellent PROMIS-10 Everyday Activities Completely PROMIS-10 Pain 3 PROMIS-10 Fatigue Mild PROMIS-10 Social Roles Very Good PROMIS-10 Anxious or Depressed Never PROMIS PHYSICAL SCORE (range 16-68) 50.8 PROMIS MENTAL SCORE (range 21-68) 59 Treatments Tried Over the counter anti-inflammatory drugs (e.g Advil, Aspirin, Aleve) Alzheimers or dementia No Cirrohosis or liver disease No HIV/AIDS No Pain in more than one joint in legs No Back or neck pain No Heart attack No Heart failure No Unclog/bypass leg arteries No Stroke, blood clot, TIA No Asthma No Emphysema, chronic bronchities, or COPD Yes Take medication for lung disease Yes Stomach ulcers/peptic ulcer disease No Diabetes No Poor kidney function No Rheumatic condtions No Cancer No Weight (lbs) 128 Height (feet) 5 feet Height (Inches) 1 BMI 24.18 (Normal) Ever used tobacco products Yes Tobacco frequency Never WHO - Tobacco Advice 0 (You are at low risk of health and other problems from your current pattern of use.) Ever used alcoholic beverages Yes Alcohol frequency Weekly WHO - Alcohol Advice 4 (You are at risk of health and other problems from your current pattern of alcohol use.) Live Alone No Marital situation Schooling More than 4 - year college Combined Household Income $35,000 to less than $50,000 # People Supported 2 Japanese, , No, not Japanese// Race White Health Literacy Extremely Currently working No Not working because: Retired PHYSICAL EXAM: Ms. Foreman is a 73 y.o. female who is alert, appears stated age and cooperative. Inspection: There are obvious arthritic changes over the MCP and CMC joint. Palpation: She has tenderness to palpation over the A1 serafin to her right thumb as well as the CMC joint. ROM/Strength: Patient is able to perform thumb flexion and extension as well as adduction and abduction with mild crepitus and flexion. There is no full on triggering. Orthopedic testing: CMC grind test-positive Neurovascular: Sensation and motor function are intact along the median, radial and ulnar nerves. Her hand is well-perfused, distal radial pulse2+. DIAGNOSTIC STUDIES: X-rays from today were personally reviewed with the patient and compared to previous films in 2015. These demonstrate a gradual progression in basal joint arthritis. ASSESSMENT: Ms. 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 On examshe does have point tenderness at the level of the CMC joint and x-rays confirm the diagnosis. She has had a gradual progression based off of her plain films when comparing today's to 2015. The patientwas told by an orthopedist in [place] that she would need surgery, however since this seems to be bothering her only intermittently, I suggested she continue with conservative management. While she has been using some bracing and occasional ibuprofen, it was recommended that she add in some topical ointments as well as warm packs. If these are no longer providing her satisfactory pain relief she also has the option of having a fluoroscopy guided cortisone injection prior to undergoing any invasiveprocedure. PLAN: Continue with conservative management including use of warm packs, Tylenol as needed and adding in topical ointments. She will return for follow up on an as needed basis and may call if wishing to proceed with a fluoroscopy guided cortisone injection into her right thumb. The patient understandsto contact us if they have any other questions or concerns. I saw Ms. Foreman with Dr. Cuenca who agrees with this plan. The above documentation was completed using [employer] voice recognition software. documented in this encounter Plan of Treatment Upcoming Encounters Date Type Specialty Care Team Description 02/24/2023 Hospital Encounter Gastroenterology Cristofer Armando MD [facility] GASTROENTEROLOGY [place], [place] [address] (Wo rk) Scheduled Procedures Name Priority Associated Diagnoses Date/Time COLONOSCOPY, DIAGNOSTIC H/O DIVERTICULITIS 10 DIALLO RVEILLANCE documented as of this encounter Visit Diagnoses Diagnosis CMC arthritis Unspecified arthropathy, hand documented in this encounter Care Teams Claims Supervisor Relationship Specialty Start Date End Date Tony Fuller PA PCP - General 09/29/13 03/01/20 [address] [place] [address] documented as of this encounter
--- OUTSIDE RECORDS SUMMARY | 2022-02-08 09:08 | XMS_ITS | Encounter Summary ---
:1945 Author Organization [facility] [place] [address] Care Team Providers Name Role Phone Nakita Pruitt MD Primary Care Provider Reason for Visit Reason Onset Date Comments Medication Refill 05/07/2012 Encounter Details Date Type Department Care Team Description 05/07/2012 Refill Dermatology Arcenio Varela Wrinkles (Primary Dx) [facility] Olya Mendez [place], [place] [id number] [place] [address] [facility] [address] [place], [place] [address] (Wo rk) Social History Tobacco Use Types Packs/Day Years Used Date Former Smoker Alcohol Use Standard Drinks/Week Comments Not Asked 0 (1 standard drink = 0.6 oz pure alcoho l) Sex Assigned at Date Recorded Not on file documented as of this encounter Plan of Treatment Upcoming Encounters Date Type Specialty Care Team Description 02/24/2023 Hospital Encounter Gastroenterology Cristofer Armando MD [facility] GASTROENTEROLOGY [place], [place] [address] (Wo rk) Scheduled Procedures Name Priority Associated Diagnoses Date/Time COLONOSCOPY, DIAGNOSTIC H/O DIVERTICULITIS 10 DIALLO RVEILLANCE documented as of this encounter Visit Diagnoses Diagnosis Wrinkles - Primary Other specified hypertrophic and atrophi c condition of skin documented in this encounter Care Teams Shell Sorter Relationship Specialty Start Date End Date Nakita Pruitt MD PCP - General 06/06/10 08/17/13 [facility] [address] [place] [address] [place] [address] documented as of this encounter
--- OUTSIDE RECORDS SUMMARY | 2022-02-08 09:08 | XMS_ITS | Encounter Summary ---
:1945 Author Organization [facility] [place] [address] Care Team Providers Name Role Phone Tony Fuller Primary Care Provider Encounter Details Date Type Department Care Team Description 08/24/2014 Hospital Encounter [place] [facility] [place] in finger of right [address] [place] [address] [place] [address] Social History Tobacco Use Types Packs/Day Years Used Date Former Smoker Quit: 09/29/18 84 Smokeless Tobacco: Never Used Alcohol Use Standard Drinks/Week Comments Yes 1.7 (1 standard drink = 0.6 oz pure alco hol) Sex Assigned at Date Recorded Not on file documented as of this encounter Medications at Time of Discharge Medication Sig Dispensed Refills Start Date End Date ibuprofen Take 1 tablet by mouth 0 07/09/2014 (ADVIL;MOTRIN) 800 mg 3 times daily as Tablet needed. omeprazole (PRILOSEC) Take 1 capsule by mouth 0 1 09/14/2020 40 mg Capsule, Delayed daily. Release(E.C.) escitalopram oxalate Take 1 tablet by mouth 0 05/16/2019 (LEXAPRO) 10 mg Tablet daily. temazepam (RESTORIL) Take 7.5 mg by mouth 0 09/14/2020 15 mg capsule nightly as needed. tretinoin (RETIN-A) Apply topically 15 g 0 08/18/2013 06/24/2020 0.05 % nightly. Physician will creamIndications: not do prior Facial rhytids authorization propranolol (INDERAL) Take 80 mg by mouth 0 05/16/2019 40 mg daily. tabletIndications: migraine prevention cyanocobalamin, Take 100 mcg by mouth 0 04/06/2020 vitamin B-12, 100 mcg daily. tablet documented as of this encounter Plan of Treatment Upcoming Encounters Date Type Specialty Care Team Description 02/24/2023 Hospital Encounter Gastroenterology Cristofer Armando MD [facility] DR GASTROENTEROLOGY [place], [place] [address] (Wo rk) Scheduled Procedures Name Priority Associated Diagnoses Date/Time COLONOSCOPY, DIAGNOSTIC H/O DIVERTICULITIS 10 DIALLO RVEILLANCE documented as of this encounter Procedures Procedure Name Priority Date/Time Associated Diagnosis Comme nts XR FINGER MINIMUM 2 Routine 08/24/2014 10:36 AM Pain in finger of Results for this VIEWS EST right hand procedure are i n the results section. documented in this encounter Results XR finger minimum 2 views (08/24/2014 10:36 AM EST) Anatomical Region Laterality Modality Hand N/A Radiographic Imaging Specimen (Source) Anatomical Collection Method Collection Time Re ceived Time Location / / Volume Laterality 08/24/2014 10:36 AM EST Impressions 08/24/2014 11:47 AM EST IMPRESSION: Stable to slightly advanced osteoarthrit is, right thumb involving the DIP joint, metacarpal carpal joint space and radioc arpal joint. Narrative 08/24/2014 11:47 AM EST EXAMINATION: FINGER MIN 2 VIEWS/RIGHT CLINICAL HISTORY: right thumb pain TECHNIQUE: 3 views right thumb COMPARISON: 08/18/2013 FINDINGS: Compared to prior radiograph there has b een little interval change. There remains joint space narrowing and bony o vergrowth at the first proximal phalanx first metacarpal and metacarpal carpal j oint space. Radial carpal joint space narrowing is evident. Mild MCP and DIP j oint space narrowing of the hand on the single frontal view. Bony overgrowth of the DIP joint of the thumb is evident with productive change. Procedure Note Lulú Augustin MD - 08/24/2014Forma tting of this note might be different from the original. EXAMINATION: FINGER MIN 2 VIEWS/RIGHT CLINICAL HISTORY: right thumb pain TECHNIQUE: 3 views right thumb COMPARISON: 08/18/2013 FINDINGS: Compared to prior radiograph there has b een little interval change. There remains joint space narrowing and bony o vergrowth at the first proximal phalanx first metacarpal and metacarpal carpal j oint space. Radial carpal joint space narrowing is evident. Mild MCP and DIP j oint space narrowing of the hand on the single frontal view. Bony overgrowth of the DIP joint of the thumb is evident with productive change. IMPRESSION IMPRESSION: Stable to slightly advanced osteoarthrit is, right thumb involving the DIP joint, metacarpal carpal joint space and radioc arpal joint. Saran Cuenca MD IMG DX ORDERABLES documented in this encounter Visit Diagnoses Diagnosis Pain in finger of right hand Pain in limb documented in this encounter Care Teams Electric Range Assembler Relationship Specialty Start Date End Date Tony Fuller PA PCP - General 09/29/13 03/01/20 [address] [place] [address] documented as of this encounter
--- OUTSIDE RECORDS SUMMARY | 2022-02-08 09:08 | XMS_ITS | Encounter Summary ---
:1945 Author Organization [facility] [place] [address] Care Team Providers Name Role Phone Tony Fuller Primary Care Provider Encounter Details Date Type Department Care Team Description 05/13/2019 Hospital Encounter [place] [facility] [place] FREDRICK Gonzales ([address] Rahul Johansen MD breath) [place], [place] [facility] [id number] CENTER [phone] [place] [address] Social History Tobacco Use Types Packs/Day Years Used Date Former Smoker Quit: 09/29/18 85 Smokeless Tobacco: Never Used Alcohol Use Standard Drinks/Week Comments Yes 1.7 (1 standard drink = 0.6 oz pure alco hol) Sex Assigned at Date Recorded Not on file documented as of this encounter Medications at Time of Discharge Medication Sig Dispensed Refills Start Date End Date SUMAtriptan (IMITREX) Take 100 mg by mouth as 0 0 02/17/2019 100 mg Tablet needed. venlafaxine Take 37.5 mg by mouth 0 04/13/2019 (EFFEXOR-XR) 37.5 mg daily. Capsule, Sust. Release 24 hr ibuprofen Take 1 tablet by mouth 0 07/09/2014 (ADVIL;MOTRIN) 800 mg 3 times daily as Tablet needed. ARIKAYCE 590 mg/8.4 mL On hold right now 0 201810/21/2019 Suspension for Nebulization albuterol (VENTOLIN Inhale 2 puffs into the 1 Inhaler 11 10/201808/31/2019 HFA) 90 mcg/actuation lungs every morning. HFA Aerosol Prior to Arikayce dose. InhalerIndications: Chronic obstructive pulmonary disease, unspecified COPD type ethambutol (MYAMBUTOL) 0 03/27/2019 400 mg Tablet rifAMPin (RIFADIN) 300 300 mg 2 times daily. 0 07/29/2019 mg Capsule azithromycin 500 mg daily. 0 02/18/2019 0 (ZITHROMAX) 500 mg Tablet diazePAM (VALIUM) 5 mg Take 5 mg by mouth 0 03/3011/22/2020 Tablet every 6 hours as needed. omeprazole (PRILOSEC) Take 1 capsule by [...] 02/24/2023 Hospital Encounter Gastroenterology Cristofer Armando MD [facility] GASTROENTEROLOGY [place], [place] [address] (Wo rk) Scheduled Procedures Name Priority Associated Diagnoses Date/Time COLONOSCOPY, DIAGNOSTIC H/O DIVERTICULITIS 10 DIALLO RVEILLANCE documented as of this encounter Procedures Procedure Name Priority Date/Time Associated Diagnosis Comme nts XR CHEST PA AND Routine 05/13/2019 10:47 AM SOB (shortness of Results for this LATERAL EDT breath) procedure are i n the results section. documented in this encounter Results XR Chest PA & Lateral (Generic) (05/13/2019 10:47 AM EDT) Anatomical Region Laterality Modality Chest N/A Digital Radiography Specimen (Source) Anatomical Location Collection Method / Collectio n Time Received Time / Laterality Volume Impressions 05/13/2019 11:04 AM EDT Slightly low lung volumes with mild bibasilar atelectasis. No other interval change. Thank you for letting us participate in the care of this patient. For questions regarding this report, please contact e number below. ? Narrative 05/13/2019 11:04 AM EDT EXAMINATION: XR CHEST PA AND LATERAL (GENERIC) CLINICAL HISTORY: Shortness of breath TECHNIQUE: Standing PA and lateral chest COMPARISON: Chest CT 12/22/2008 FINDINGS: There are slightly lower lung volumes wi th mild bibasilar atelectasis. There is no other interval change. The lungs othe rwise appear clear. However, the prior CT demonstrated multiple small tree-in-b ud opacities that would probably not be evident on the chest radiograph. The car diomediastinal silhouette appears normal. No pleural effusion or significa nt bone abnormality. Procedure Note Uriel Mary MD - 05/13/2019Formatt ing of this note might be different from the original. EXAMINATION: XR CHEST PA AND LATERAL ([facility]anquilMedIC) CLINICAL HISTORY: Shortness of breath TECHNIQUE: Standing PA and lateral chest COMPARISON: Chest CT 12/22/2008 FINDINGS: There are slightly lower lung volumes wi th mild bibasilar atelectasis. There is no other interval change. The lungs othe rwise appear clear. However, the prior CT demonstrated multiple small tree-in-b ud opacities that would probably not be evident on the chest radiograph. The car diomediastinal silhouette appears normal. No pleural effusion or significa nt bone abnormality. IMPRESSION Slightly low lung volumes with mild biba silar atelectasis. No other interval change. Thank you for letting us participate in the care of this patient. For questions regarding this report, please contact e number below. Rahul Gonzales MD IMG DX ORDERABLES documented in this encounter Visit Diagnoses Diagnosis SOB (shortness of breath) Shortness of breath documented in this encounter Care Teams Concrete Fence Builder Relationship Specialty Start Date End Date Tony Fuller PA PCP - General 09/29/13 03/01/20 [address] [place] [address] documented as of this encounter
--- OUTSIDE RECORDS SUMMARY | 2022-02-08 09:08 | XMS_ITS | Encounter Summary ---
:1945 Author Organization [facility] [place] [address] Care Team Providers Name Role Phone Tony Fuller Primary Care Provider Encounter Details Date Type Department Care Team Description 07/02/2019 Notes Only Infectious Disease a t [facility] [place] Clara Sheriff MD [facility] [place] [address] INFECTIOUS DISEASE [phone] [place], [place] [address] (Wo rk) Social History Tobacco Use Types Packs/Day Years Used Date Former Smoker Quit: 09/29/18 85 Smokeless Tobacco: Never Used Alcohol Use Standard Drinks/Week Comments Yes 1.7 (1 standard drink = 0.6 oz pure alco hol) Sex Assigned at Date Recorded Not on file documented as of this encounter Progress Notes Clara Sheriff MD - 07/02/2019 12:38 PM EST Infectious Diseases and International Health Section Note Addendum to today's earlier note: I discussed directly with Dr. Edwin Villeda in Cardiology. He let me know he is able to schedule her to establish care and define this perceived arrhythmia through a Zio patch beginning today. He thought it would be safe to continue azithro, and we could consider suggesting that she take her PRN diltiazem as scheduled at 30 or 60mg po q12 to rate control. Clara Sheriff MD Attending, Section of Infectious Disease and International Health [email or web address] [phone] documented in this encounter Plan of Treatment Upcoming Encounters Date Type Specialty Care Team Description 02/24/2023 Hospital Encounter Gastroenterology Cristofer Armando MD [facility] DR GASTROENTEROLOGY [place], [place] [address] (Wo rk) Scheduled Procedures Name Priority Associated Diagnoses Date/Time COLONOSCOPY, DIAGNOSTIC H/O DIVERTICULITIS 10 DIALLO RVEILLANCE documented as of this encounter Visit Diagnoses Not on filedocumented in this encounter Care Teams Batchmaker Relationship Specialty Start Date End Date Tony Fuller PA PCP - General 09/29/13 03/01/20 [address] [place] [address] documented as of this encounter
--- OUTSIDE RECORDS SUMMARY | 2022-02-08 09:08 | XMS_ITS | Encounter Summary ---
:1945 Author Organization [facility] [place] [address] Care Team Providers Name Role Phone Tony Fuller Primary Care Provider Reason for Visit Reason Comments Follow-up Encounter Details Date Type Department Care Team Description 07/28/2019 Office Visit Infectious Disease Genna Sheriff Myco bacterium avium infection; [place] [facility] [place] Medication monitoring encounter [facility] [address] [place] [address] [place] [address] [phone] (Wo rk) Social History Tobacco Use Types Packs/Day Years Used Date Former Smoker Quit: 09/29/18 85 Smokeless Tobacco: Never Used Alcohol Use Standard Drinks/Week Comments Yes 1.7 (1 standard drink = 0.6 oz pure alco hol) Sex Assigned at Date Recorded Not on file documented as of this encounter Last Filed Vital Signs Vital Sign Reading Time Taken Comments Blood Pressure 118/74 07/28/2019 10:39 AM EST Pulse 78 07/28/2019 10:39 AM EST Temperature 36.6 ??C (97.9 ??F) 07/28/2019 10:39 AM EST Respiratory Rate - - Oxygen Saturation 96% 07/28/2019 10:39 AM EST RA Inhaled Oxygen Concentration - - Weight 60.1 kg (132 lb 6.4 oz) 07/28/2019 10:39 AM EST Height - - Body Mass Index 25.43 07/22/2019 10:39 AM EST documented in this encounter Progress Notes Genna Sheriff MD - 07/28/2019 10:30 AM EST ID Outpatient Follow Up - Nontuberculous Mycobacterial (NTM) Infection Identification: Chronic cough, recurrent MAC infection Relevant history: Mandy Foreman is a 73 y.o. female previous smoker (quit 1984), with a history of recurrent respiratory infections, bronchiectasis, and ROSY, who had MAC identified through 02/11/2007 bronch and underwent treatment MAC [id number] with guidelines-based triple antibiotics. She does visit [place] in the winter and has symptoms of [...] again smear negative MAC with repeated DST clarithromycin JENNIFER 1 (S), AMK 8, LZD 16 (I), EMB 4, RMP 4, RFB <0.25. PFTs 04/06/2019 showed worsening obstruction to FEV1 72%. Her clinician in [place] left so she transferred care here on 04/14/2019. We set her up for intensified airway clearance and Aricayse which she started 04/29. Interval Since last seen 06/09, a lot has happened (see eDH notes). She's had to go off Aricayse as documented. Then she had rapid heart beat complication so held azithromycin until curbside with Cardiology. She restarted azithro 250 qd and now has finished the Ziopatch a week and a half ago and seeing Dr. Villeda 08/03 to review findings. She did not feel any sense of rapid heart rate since restarting. Still taking RMP and EMB both TIW. She is not noting any side effects from the meds now, but does complain of bad eyesight chronically under close follow up. She feels she is back at her respiratory baseline: she 'feels good'. She is downhill skiing. She is gaining weight, not having fever, no NS. Still not coughing at all, only when dry cold air, but even this is rare. She had a CCT 06/15/2019: IMPRESSION 1. 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 2. Otherwise, similar findings of bilateral tree-in-bud opacities with mild bronchiectasis and bronchial wall thickening. ?? Physical Exam BP 118/74 Pulse 78 Temp 36.6 ??C (97.9 ??F) Wt 60.1 kg (132 lb 6.4 oz) SpO2 96% Comment: RA BMI 25.43 kg/m?? General - no coughing. Lungs are nearly clear today, with no wheezing, no rales, but some coarse sounds. Heart is RRR, without obvious murmur. Abd benign No rash No DURGA Lab Results Component Value Date WBC 7.5 [...] her report 07/03/2017 neg MAC DST above Other Studies: PFTs as above Impression: Mandy Foreman is a 73 y.o. 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 Her provider had obtained Aricayse for her, but announced he was leaving and withdrew the prior auth. She sought care here urgently, and is improving airway clearance with Dr. Gomez. After reviewing iv amikacin she electedto attempt to intensify with Aricayse, but she has not tolerated. Today we discussed she is noting stability or improvement on triple therapy, which has been TIW. We had discussed clofazimine and she has reviewed the consent. She is interested in moving to daily therapy as a first next step, then we will consider intensifying. I think in favor of the triple regimen is smear negative status, low coughburden, and response to therapy. Today we agreed: Recommendations: ?? Needs cups at home for sputum monitoring which she will submit monthly. ?? Continue current weight based NTM therapy: ?? Azithromycin 250mg qd - hti sis a change from her tiw routine ?? Change Ethambutol from 25mg/kg TIW to 15mg/kg qd: 800 mg ?? Rifampin 600mg: change from tiw to daily ?? For treatment safety ?? CBC, CMP q1m - prefers to do at [facility] ?? 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 Self monitoring to include using labeled red/green cards for distinguishing color, loss of peripheral vision and any blurry vision ?? Because macrolides can increase QTc, we will check an ECG (normal 460 for females) ?? Not tolerant of Aricayse ?? Choosing not to try addition of clofazimine right now. We will check a repeat CT in October 2019 which may help us decide on instensificaiton ?? Repeat AFB to help encourage her decision to intensify, but not productve now. May need bronch thorugh Dr. Castillo office.. ?? RTC q2-3 months ?? Will call if develops new symptoms or has questions. ?? Note to ALEXANDRE Holcomb; Murphy Rivas MD Section of Infectious Disease and International Health [email or web address] [phone] were spent in this [id number] encounter, during which 25 minutes was spent counseling about NTM infection, treatment, medication side effects and prognosis. All of the patient's questions were answered. documented in this encounter Plan of Treatment Upcoming Encounters Date Type Specialty Care Team Description 02/24/2023 Hospital Encounter Gastroenterology Cristofer Armando MD [facility] DR GASTROENTEROLOGY [place], [place] [address] (Wo rk) Scheduled Procedures Name Priority Associated Diagnoses Date/Time COLONOSCOPY, DIAGNOSTIC H/O DIVERTICULITIS 10 DIALLO RVEILLANCE documented as of this encounter Visit Diagnoses Diagnosis Mycobacterium avium infection Pulmonary diseases due to other mycobact eria Medication monitoring encounter Encounter for therapeutic drug monitorin g documented in this encounter Care Teams Marine Structural Welder Relationship Specialty Start Date End Date Tony Fuller PA PCP - General 09/29/13 03/01/20 [address] [place] [address] documented as of this encounter
--- OUTSIDE RECORDS SUMMARY | 2022-02-08 09:08 | XMS_ITS | Encounter Summary ---
:1945 Author Organization [facility] [place] [address] Care Team Providers Name Role Phone Tony Fuller Primary Care Provider Reason for Referral Diagnostic Test (Routine) - Closed Specialty Diagnoses / Procedures Referred By Contact Refer red To Contact Radiology Diagnoses Mycobacterium avium infection Clara Sheriff MD [facility] Rad Ct Scan Procedures CT Chest wo Contrast (Generic) [facility] [place] [address] [place] [address] Referral ID Status Reason Start Date Expiration Date Visits V isits Requested Authorized [id number] Closed Specialty 06/09/2019 06/08/2020 1 1 Service Requested Reason for Visit Diagnostic Test (Routine) - Closed Specialty Diagnoses / Procedures Referred By Contact Refer red To Contact Radiology Diagnoses Mycobacterium avium infection Clara Sheriff MD [facility] Rad Ct Scan Procedures CT Chest wo Contrast (Generic) [facility] [place] [address] [place] [address] Referral ID Status Reason Start Date Expiration Date Visits V isits Requested Authorized [id number] Closed Specialty 06/09/2019 06/08/2020 1 1 Service Requested Encounter Details Date Type Department Care Team Description 06/15/[address] Scan at [facility] Clara Sheriff Mycobacterium avium [facility] MD [address] [place], [place] CENTER [address] INFECTIOUS [phone] DISEASE [place], [place] [address] Social History Tobacco Use Types [...] 09/14/2020 40 mg Capsule, Delayed daily. Release(E.C.) temazepam (RESTORIL) Take 7.5 mg by mouth 0 09/14/2020 15 mg capsule nightly as needed. tretinoin (RETIN-A) Apply topically 15 g 0 08/18/2013 06/24/2020 0.05 % nightly. Physician will creamIndications: not do prior Facial rhytids authorization cyanocobalamin, Take 100 mcg by mouth 0 04/06/2020 vitamin B-12, 100 mcg daily. tablet documented as of this encounter Plan of Treatment Upcoming Encounters Date Type Specialty Care Team Description 02/24/2023 Hospital Encounter Gastroenterology Cristofer Armanod MD [facility] ER GASTROENTEROLOGY [place], [place] [address] (Wo rk) Scheduled Procedures Name Priority Associated Diagnoses Date/Time COLONOSCOPY, DIAGNOSTIC H/O DIVERTICULITIS 10 DIALLO RVEILLANCE documented as of this encounter Procedures Procedure Name Priority Date/Time Associated Diagnosis Comme nts CT CHEST WO Routine 06/15/2019 5:13 PM Mycobacterium avium Re sults for this CONTRAST (GENERIC) EST infection procedure are in the results section. documented in this encounter Results CT Chest wo Contrast (Generic) (06/15/2019 5:13 PM EST) Anatomical Region Laterality Modality Chest Computed Tomography Specimen (Source) Anatomical Location Collection Method / Collectio n Time Received Time / Laterality Volume Impressions 06/16/2019 1:24 PM EST 1. 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 2. ??Otherwise, similar findings of bila teral tree-in-bud opacities with mild bronchiectasis and bronchial wall thicke gerhard. I have personally reviewed the image(s) and the resident's interpretation and agree with the findings, Malou Kelly at 06/16/2019 1:24 PM Thank you for letting us participate in the care of this patient. For questions regarding this report, please contact e number below. ? Electronically signed by: OFELIA Goel [facility] ([phone]), at 06/16/2019 1:24 PM Narrative 06/16/2019 1:24 PM EST EXAMINATION: CT CHEST WO CONTRAST (GENERIC) CLINICAL HISTORY: MAC therapy progress? TECHNIQUE: 3.75mm thick axial contiguous sections were obtained through the chest via helical acquisition without in travenous contrast administration. Thin-section reconstructions as well as coronal and sagittal reformatted images were generated. COMPARISON: CT chest 12/22/2008 FINDINGS: Pulmonary parenchyma: Similar biapical s carring. Slight interval increase in the size and number of peripheral tree-in-bu d opacities in the right middle lobe and lateral left upper lobe. Similar scarrin g with traction bronchiectasis at the lingula. No consolidative process or new/enlargin g pulmonary nodule. Punctate calcified granuloma in the superior left lower lob e is unchanged. Airways: Left-sided predominant bronchie ctasis, unchanged. Mild bilateral bronchial wall thickening. The large sukh tral airways are patent. Pleura: No effusion, pleural nodularity, or pneumothorax. Lymph nodes: No significant findings. Heart, pericardium, and great vessels: N ormal heart size. No pericardial effusion. Nonaneurysmal ascending aorta. Other mediastinal structures: No signifi cant findings. Upper abdomen: Subcentimeter rounded hyp odensities in the left hepatic lobe are slightly increased in size from 8/16/200 6. Too small to characterize, however, measure close to water density compatibl e with cysts. Body wall soft tissues: No significant f indings. Skeletal structures: No significant find ings. Procedure Note Malou Banda MD - 2018 EXAMINATION: CT CHEST WO CONTRAST (GENER IC) CLINICAL HISTORY: MAC therapy progress? TECHNIQUE: 3.75mm thick axial contiguous sections were obtained through the chest via helical acquisition without in travenous contrast administration. Thin-section reconstructions as well as coronal and sagittal reformatted images were generated. COMPARISON: CT chest 12/22/2008 FINDINGS: Pulmonary parenchyma: Similar biapical s carring. Slight interval increase in the size and number of peripheral tree-in-bu d opacities in the right middle lobe and lateral left upper lobe. Similar scarrin g with traction bronchiectasis at the lingula. No consolidative process or new/enlargin g pulmonary nodule. Punctate calcified granuloma in the superior left lower lob e is unchanged. Airways: Left-sided predominant bronchie ctasis, unchanged. Mild bilateral bronchial wall thickening. The large sukh tral airways are patent. Pleura: No effusion, pleural nodularity, or pneumothorax. Lymph nodes: No significant findings. Heart, pericardium, and great vessels: N ormal heart size. No pericardial effusion. Nonaneurysmal ascending aorta. Other mediastinal structures: No signifi cant findings. Upper abdomen: Subcentimeter rounded hyp odensities in the left hepatic lobe are slightly increased in size from 8/200 6. Too small to characterize, however, measure close to water density compatibl e with cysts. Body wall soft tissues: No significant f indings. Skeletal structures: No significant find ings. IMPRESSION 1. 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 2. Otherwise, similar findings of bilate ral tree-in-bud opacities with mild bronchiectasis and bronchial wall thicke gerhard. I have personally reviewed the image(s) and the resident's interpretation and agree with the findings, Malou Kelly at 06/16/2019 1:24 PM Thank you for letting us participate in the care of this patient. For questions regarding this report, please contact th e number below. Clara Sheriff MD IMG CT ORDERABLES documented in this encounter Visit Diagnoses Diagnosis Mycobacterium avium infection Pulmonary diseases due to other mycobact eria documented in this encounter Care Teams Advertising Representative Relationship Specialty Start Date End Date Tony Fuller PA PCP - General 09/29/13 03/01/20 [address] [place] [address] documented as of this encounter
--- OUTSIDE RECORDS SUMMARY | 2022-02-08 09:08 | XMS_ITS | Encounter Summary ---
:1945 Author Organization [facility] [place] [address] Care Team Providers Name Role Phone Nakita Pruitt MD Primary Care Provider Encounter Details Date Type Department Care Team Description 01/22/2011 Abstract Dermatology Apolonia Arreguin, [place] [address] Social History Tobacco Use Types Packs/Day Years Used Date Never Assessed Sex Assigned at Date Recorded Not on file documented as of this encounter Plan of Treatment Upcoming Encounters Date Type Specialty Care Team Description 02/24/2023 Hospital Encounter Gastroenterology Cristofer Armando MD [facility] ER DR GASTROENTEROLOGY [place], [place] [address] (Wo rk) Scheduled Procedures Name Priority Associated Diagnoses Date/Time COLONOSCOPY, DIAGNOSTIC H/O DIVERTICULITIS 10 DIALLO RVEILLANCE documented as of this encounter Visit Diagnoses Not on filedocumented in this encounter Care Teams Weld Technician Relationship Specialty Start Date End Date Nakita Pruitt MD PCP - General 06/06/10 08/17/13 [facility] [address] [place] [address] [place] [id number] documented as of this encounter
--- OUTSIDE RECORDS SUMMARY | 2022-02-08 09:08 | XMS_ITS | Encounter Summary ---
:1945 Author Organization [facility] Address [address] [place] [address] Care Team Providers Name Role Phone Tony Fuller Primary Care Provider Reason for Visit Consultation (Routine) - Closed Specialty Diagnoses / Procedures Referred By Contact Refer red To Contact Infectious Diseases Diagnoses NTM Murphy Gomez MD Talbot, Elizabeth A, Procedures consult / treat [facility] [address] BALDERAS PULMONARY MEDICINE [facility] [address]ICA RUST [address] [place] [address] Phone: Fax: Referral ID Status Reason Start Date Expiration Date Visits Requ ested Visits Authorized [id number] Closed 04/08/2019 04/07/2020 1 1 Encounter Details Date Type Department Care Team Description 04/14/2019 Office Visit Infectious Disease Clara Sheriff Myco bacterium avium complex; at [facility] MD Eleno Medication monitoring encounter; [facility] care maintenance Drive JESSICA Rust INFECTIOUS DISEA [id number] [place] [address] [phone] (Wo rk) Social History Tobacco Use Types Packs/Day Years Used Date Former Smoker Quit: 09/29/18 84 Smokeless Tobacco: Never Used Alcohol Use Standard Drinks/Week Comments Yes 1.7 (1 standard drink = 0.6 oz pure alco hol) Sex Assigned at Date Recorded Not on file documented as of this encounter Last Filed Vital Signs Vital Sign Reading Time Taken Comments Blood Pressure 151/70 04/14/2019 9:22 AM EDT Pulse 68 04/14/2019 9:22 AM EDT Temperature 36.6 ??C (97.8 ??F) 04/14/2019 9:22 AM EDT Respiratory Rate - - Oxygen Saturation 97% 04/14/2019 9:22 AM EDT RA Inhaled Oxygen Concentration - - Weight 58.3 kg (128 lb 9.6 oz) 04/14/2019 9:22 AM EDT Height - - Body Mass Index 24.3 08/24/2014 11:28 AM EST documented in this encounter Progress Notes Clara Sheriff MD - 04/14/2019 8:00 AM EDT ID Outpatient Consult - Nontuberculous Mycobacterial (NTM) Infection CC: Chronic cough, recurrent MAC infection HPI: Mandy Foreman is a 73 y.o. female previous smoker (quit 1984), with a history of recurrent respiratory infections, bronchiectasis, and ROSY, who had MAC identified through 02/11/2007 bronch and underwent treatment for MAC 2006- with triple antibiotics. She had symptomatic response (her primary symptoms being weight loss, weakness but rare cough, decreased frequency of her usual recurrent bronchitis). The course was complicated by brief small volume hemoptysis and an episode of PSVT. At one year, she was noted to have had improved CT and reports that she underwent bronch which was AFB negative (although I do not find this result in [facility]). She took another 6m therapy, and she was told to stop the antibiotics (so total 18m), but she is quick to note that she did not have repeat microbiologic confirmation of culture negativity (I explained in turn that was not strictly necessary). I see also an AFB sputum from 10/12/2018 which was negative. In December 2016, she began to again inadvertently lose weight, experienced increased fatigue, but still had no prominent sustained cough (except during her occasional episodes of bronchitis for which she usually receives azithromycin). She had a repeat CT 06/25/2017 which showed bronchiectatic disease and nodular opacities in her upper lobes and then repeatbronch 07/03/2017 which showed relapse with smear negative culture positive MAC. She was restarted on same triple therapy, with another episode of PSVT on clarithromycin for which she was switched to azithromycin. But she has not converted as evidenced by repeat CT 10/01/2018 which showed unchanged bila teral upper lobe bronchiectasis with small scattered irregular opacities. Then repeat bronch 10/01/2018 showed a few Aspergillus fumigatus, NURF and again smear negative MAC with repeated DST clarithromycin JENNIFER 1 (S), AMK 8, LZD 16 (I), EMB 4, RMP 4, RFB <0.25. PFTs 04/06/2019 showed worsening obstruction to FEV1 72%. Current and chronic symptoms include essentially no cough, mild MUNGUIA, no sputum production or wheezing and she is able to stay active, especially enjoying downhill skiing. No F/C/NS, stable weight. Possible side effects from her MAC meds include fatigue, and upset stomach within the 2 hours post dosing. She has had arrythymia as above. She had a baseline evaluation with ophthalmology ahead of use of EMB, but not since. She does not have her blood monitored. Her clinician in [place] was planning to start Aricayse but announced he is leaving so she is disrupted in her treatment intensification plan so requested urgent add on here. She even has the Aricayse at home already. She is not doing any routine for airway clearance: no aerobika, she does not have a nebullizer and uses Proair and Symbicort just occasionally (rarely). She has changed Pulmonologiststo Dr. Gomez but not met him yet. Specific NTM Risk Factors Travel to [facility] [place] - has been to [place] every winter for 1-2 weeks Hottubs, steam baths - never Gardening - little garden, no potting soil Reflux or aspiration - She does have heartburn that has never been evaluated. No mj cigarettes No barn or livestock or romy exposure Review of Systems: General - Denies fever, chills, night sweats, fatigue. Weight stable HEENT - Occasionally has headaches. Denies oral lesions, sore throat, headache, vision changes and neck stiffness. Heart - Denies chest pain or tightness, denies palpitations. Lungs - Cough as above. Denies difficulty breathing and wheezing. No hemoptysis. Abdomen - Denies nausea, vomiting, diarrhea. - Denies urinary frequency, dysuria and hematuria. Skin - Denies rash. Psych - chronic insomnia Patient Active Problem List Diagnosis Code ??? Persistent headaches R51 ??? Rosacea L71.9 ??? Telangiectasia I78.1 ??? Seborrheic keratosis L82.1 ??? Inflamed seborrheic keratosis L82.0 ??? 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 Nodule of finger - right long and left ring R22.30 SVT Diverticulosis Partial colectomy Osteopenia Current Outpatient Medications on File Prior to Visit Medication Sig Dispense Refill ??? omeprazole (PRILOSEC) 40 mg Capsule, Delayed Release(E.C.) Take 1 capsule by mouth daily. ??? escitalopram oxalate (LEXAPRO) 10 mg Tablet Take 1 tablet by mouth daily. ??? ibuprofen (ADVIL;MOTRIN) 800 mg Tablet Take 1 tablet by mouth 3 times daily as needed. ??? temazepam (RESTORIL) 15 mg capsule Take 15 mg by mouth nightly as needed. ??? tretinoin (RETIN-A) 0.05 % cream Apply topically nightly. Physician will not do prior authorization 15 g prn ??? propranolol (INDERAL) 40 mg tablet Take 80 mg by mouth daily. ??? cyanocobalamin, vitamin B-12, 100 mcg tablet Take 100 mcg by mouth daily. No current facility-administered medications on file prior to visit. FAM Mother with RA; siblings and children healthy. Social History Socioeconomic History ??? Marital status: Spouse name: Not on file ??? Number of children: Not on file ??? Years of education: Not on file ??? Highest education level: Not on file Occupational History ??? Not on file Social Needs ??? Financial resource strain: Not on file ??? Food insecurity: Worry: Not on file Inability: Not on file ??? Transportation needs: Medical: Not on file Non-medical: Not on file Tobacco Use ??? Smoking status: Former Smoker Last attempt to quit: 09/29/1984 Years since quittin.5 ??? Smokeless tobacco: Never Used Substance and Sexual Activity ??? Alcohol use: Yes Alcohol/week: 1.7 standard drinks Types: 2 drink(s) per week ??? Drug use: No ??? Sexual activity: Not on file Lifestyle ??? Physical activity: Days per week: Not on file Minutes per session: Not on file ??? Stress: Not on file Relationships ??? Social connections: Talks on phone: Not on file Gets together: Not on file Attends pentecostal service: Not on file Active member of club or organization: Not on file Attends meetings of clubs or organizations: Not on file Relationship status: Not on file ??? Intimate partner violence: Fear of current or ex partner: Not on file Emotionally abused: Not on file Physically abused: Not on file Forced sexual activity: Not on file Other Topics Concern ??? Not on file Social History Narrative ??? Not on file , one son, one daughter. I cat. She is retired. Physical Exam BP 151/70 Pulse 68 Temp 36.6 ??C (97.8 ??F) Wt 58.3 kg (128 lb 9.6 oz) SpO2 97% Comment: RA BMI 24.30 kg/m?? Weight: Previously 127 pounds (57.7) noted at her OSH on 01/27/2019 General - very well appearing, no coughing. HEENT - Non icteric, no conjunctival pallor Heart - RRR no mrg. Lungs - Symmetric excursion. Breath sounds are normal with no wheezing, rhonchi or rales. Abdomen - Soft, non tender, non distended, normal bowel sounds. Extremities - warm, dry, no edema Skin - no rash Neuro - alert and oriented, normal affect, CN grossly intact. Normal gait. Lab Results Component Value Date WBC 11.3 (H) 12/24/2010 RBC 5.42 (H) 12/24/2010 HGB 15.2 12/24/2010 HCT 41.9 12/24/2010 MCV 84.9 12/24/2010 MCH 28.0 12/24/2010 MCHC 33.0 12/24/2010 PLATELET 329 12/24/2010 RDWCV 13.1 12/24/2010 Lab Results Component Value Date NA 138 12/24/2010 K 3.8 12/24/2010 CL 99 12/24/2010 CO2 30 12/24/2010 Lab Results Component Value Date BUN 7 (L) 12/24/2010 CREATININE 0.63 (L) 12/24/2010 Lab Results Component Value Date ALT 12 12/24/2010 AST Not Perf 12/24/2010 ALKPHOS 80 12/24/2010 BILITOT 0.4 12/24/2010 Microbiology: Date Smear Culture Comments 2006 ? [...] She sought care here urgently, and is awaiting an appointment with Dr. Gomez. I told her usually clinicians add intravenous amikacin, but this does have considerable potential for side effects and I can understand the strategy set into motion to intensify with Aricayse. We discussed the risk and potential benefit of thisnew MAC salvage medicine (amikacin liposomal inhaled solution). Compared to 9% of initial nonconverters who remained on an optimized background regimen(such as her), 29% of those with Aricayse added converted, although this conversion did not impact distance in a 6 minute walk, and there is limited data as to whether this is a sustained conversion. I informed that 17.5% of patients on UNRULY withdrew from the licensing trial because of adverse effects including two most common causes SOB followed by dysphonia, then a few each with allergic reactions, cough, hemoptysis and other exacerbated baseline respiratory symptoms. I suggested to her she will have a better chance of tolerating this medicine safely if she is on an albuterol premedication routine, and overall prognosis will be better if she is on an airway clearance routine as well. She may need to start over with access to Aricayse. We did notdiscuss in depth, but there are other medications that might be needed to intensify such as clofazimine. Recommendations: Flu shot today Needs med refill Continue to seek consultation with Dr. Gomez in Pulmonary for consideration of airway clearance (e.g., hypertonic saline nebullizer, regular use of Aerobika oscillatory device) ?? For use of Aricayse: ?? Institution of pre-medication regimen with albuterol ?? Educated to report any side effects including exacerbation of respiratory symptoms and dysphonia ?? CMP q1m ?? RTC 1 week after beginning ?? Nursing co-management ?? Continue other weight based NTM therapy: ?? Azithromycin 250mg qd ?? Ethambutol 15mg/kg qd: 57kg today so 855 mg ?? Rifampin 600mg qd ?? 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 Self monitoring to include using labeled red/green cards for distinguishing color, loss of peripheral vision and any blurry vision ?? Because macrolides can increase QTc, we will check an ECG (normal 460 for females) ?? CBC, CMP at baseline and q1-3m ?? Noncontrasted CT q 3-6 months for response monitoring, or sooner if significant symptom exacerbation ?? Collect repeat sputums q month to help determine final duration of therapy (typically 12 months from sputum conversion to negative). ?? RTC 1 month ?? Will call if develops new symptoms or has questions. ?? Note to ALEXANDRE Holcomb; Murphy Rivas MD Section of Infectious Disease and International Health [email or web address] [phone] minutes were spent in this [id number] encounter, during which 45 minutes was spent counseling about NTM infection, treatment, medication side effects and prognosis. All of the patient's questions were answered. documented in this encounter Plan of Treatment Upcoming Encounters Date Type Specialty Care Team Description 02/24/2023 Hospital Encounter Gastroenterology Cristofer Armando MD [facility] GASTROENTEROLOGY [place], [place] [address] (Wo rk) Scheduled Procedures Name Priority Associated Diagnoses Date/Time COLONOSCOPY, DIAGNOSTIC H/O DIVERTICULITIS 10 DIALLO RVEILLANCE documented as of this encounter Procedures Procedure Name Priority Date/Time Associated Comments Diagnosis HEMOGRAM Routine 04/14/2019 10:31 Medication Results for this AM EDT monitoring procedure are i n encounter the results section. DIFFERENTIAL, Routine 04/14/2019 10:31 Medication Results fo r this AUTOMATED AM EDT monitoring procedure are i n encounter the results section. HC CBC,PLT & AUTO DIFF Routine 04/14/2019 10:31 Medication AM EDT monitoring encounter COMPREHENSIVE Routine 04/14/2019 10:31 Medication Results fo r this METABOLIC PANEL AM EDT monitoring procedure ar e in (NON-FASTING) encounter the results section. EKG 12-LEAD Routine 04/14/2019 9:36 AM Medication Results f or this EDT monitoring procedure are i n encounter the results section. documented in this encounter Results Differential, Automated (04/14/2019 10:31 AM EDT) P athologist Signature Neutrophils % 53.2 % [facility] Neutr Abs (ANC) 4.01 1.70 - [facility] 6.10 [facility] x10(3)[facility] LABORATORY Lymphocytes % 35.8 % [facility] Lymphocytes Abs 2.7 0.9 - 3.2 [facility] x10(3)/[facility] LABORATORY Monocytes % 6.8 % [facility] Monocyte Abs 0.5 0.3 - 0.9 [facility] x10(3)/[facility] LABORATORY Eosinophils % 3.5 % [facility] Eosinophils Abs 0.3 0.0 - 0.4 [facility] x10(3)/[facility] LABORATORY Basophils % 0.4 % [facility] Basophils Abs 0.0 0.0 - 0.1 [facility] x10(3)/[facility] LABORATORY Immature Gran % 0.30 % [facility] Comment: Immature granulocytes(IG's)percentage an d absolute count will include metamyelocytes, myelocytes, and promyelo cytes. Blood smears from CBCs yielding IG's will be scanned manually for concor dance. If this scan disagrees with the automated IG or if promyelocytes are not ed, a manual differential will be performed. Marsha Gran Abs 0.02 0.00 - 0.04 x10(3)/[facility] Specimen Anatomical Collection Method Collection Time Receive d Time (Source) Location / / Volume Laterality Blood specimen 04/14/2019 10:31 9 (specimen) AM EDT 10:42 AM EDT Resulting Agency Comment Spec In Lab Clara Sheriff MD HEMATOLOGY ORDERABLES Performing Organization Address City/State/[place] [address] (ABNORMAL) Hemogram (04/14/2019 10:31 AM EDT) Analysis Performed At Patho logist Time Signature WBC 7.5 4.0 - 9.5 [facility] LABORATORY RBC 5.24 (H) 4.00 - [place] 5.21 [facility] x10(6)/[facility] LABORATORY Hemoglobin 15.0 11.7 - [facility] 15.5 gm/dL [facility] Hematocrit 46.2 (H) 35.7 - [facility] 45.8 % [facility] MCV 88.2 82.6 - [facility] 94.4 [facility] LABORATORY MCH 28.6 27.1 - [facility] 32.0 pg [facility] MCHC 32.5 31.7 - [place] 35.0 gm/dL [facility] Platelets 306 145 - 357 [facility] x10(3)/[facility] LABORATORY RDWSD 43.0 37.0 - [place] 46.0 [facility] LABORATORY RDWCV 13.3 11.5 - [place] [place] 14.1 % [facility] MPV 10.1 7.6 - 12.9 [place] [facility] LABORATORY nRBC % Auto 0.0 % [facility] nRBC Abs Auto 0.000 0.000 - [facility] [place] 0.000 [facility] x10(3)/[facility] LABORATORY Specimen Anatomical Collection Method Collection Time Receive d Time (Source) Location / / Volume Laterality Blood specimen 04/14/2019 10:31 9 (specimen) AM EDT 10:42 AM EDT Resulting Agency Comment Spec In Lab Clara Sheriff MD HEMATOLOGY ORDERABLES Performing Organization Address City/State/[place] [address] (ABNORMAL) Comprehensive metabolic panel (non-fasting) (04/14/2019 10:31 AM EDT) athologist Signature Glucose Lvl 106 65 - 199 [facility] mg/dL [facility] Comment: Diabetes: >=200 mg/dL plus symp toms BUN 12 8 - 18 mg/dL [facility] Creatinine 0.67 (L) 0.70 - 1.20 mg/dL [facility] Sodium 140 135 - 145 mmol/L [facility] Potassium 4.0 3.5 - 5.0 mmol/L [facility] Comment: Please note: ??Patients with WBC >100,00 0 may have falsely elevated Potassium levels. ??For accurate Potassium quantif ication in these patients send serum separator tube (gold top) for subsequent determinations. ??Contact the Clinical Chemistry Laboratory if there are any qu estions. Chloride 99 98 - 107 mmol/L [facility] CO2 30 22 - 31 mmol/L [facility] Anion Gap 11 5 - 15 mmol/L [facility] Calcium 10.4 8.5 - 10.5 mg/dL [facility] Total Protein 7.4 6.1 - 8.0 gm/dL [facility] Albumin 4.7 3.2 - 5.2 gm/dL [facility] AST 16 0 - 30 unit/L [facility] ALT 13 0 - 30 unit/L [facility] Alk Phos 77 35 - 105 unit/L [facility] Total Bilirubin 0.3 0.2 - 1.3 mg/dL [facility] Estimated GFR 87 >=60 mL/min/1.73 m?? [facility] Comment: The eGFR was calculated using the CKD-EP I equation. As with all creatinine based estimates of kidney function, eGFR values calculated with the CKD-EPI equation are not accurate in patients wi th acute kidney failure, extremes of body mass or the acutely ill. [email or web address]/DHMCnkf eGFR 100 >=60 mL/min/1.73 m?? [facility] Comment: The eGFR was calculated using the CKD-EP I equation. As with all creatinine based estimates of kidney function, eGFR values calculated with the CKD-EPI equation are not accurate in patients wi th acute kidney failure, extremes of body mass or the acutely ill. [email or web address]/DHMCnkf Specimen Anatomical Collection Method Collection Time Receive d Time (Source) Location / / Volume Laterality Blood specimen 04/14/2019 10:31 9 (specimen) AM EDT 10:42 AM EDT Resulting Agency Comment Spec In Lab Clara Sheriff MD CHEMISTRY ORDERABLES Performing Organization Address City/State/ZIP Code Phon e Number [place] [id number] EKG 12 Lead (04/14/2019 9:36 AM EDT) Component Value Ref Range Test Analysis Performed Pathologis t Method Time At Signature Ventricular rate 66 BPM MUSE SYSTEM Atrial Rate 66 BPM MUSE SYSTEM P-R Interval 170 ms MUSE SYSTEM QRS Duration 90 ms MUSE SYSTEM Q-T Interval 408 ms MUSE SYSTEM QTC Calculated 427 ms MUSE SYSTEM (Bezet) Calculated P [place] 68 degrees MUSE SYSTEM Calculated R [place] -74 degrees MUSE SYSTEM Calculated T [place] 71 degrees MUSE SYSTEM INTERPRETATION Normal sinus rhythm MUSE SYSTEM Left axis deviation Pulmonary disease pattern Inferior infarct , age undetermined Abnormal ECG When compared with ECG of 24-DEC-2010 23:58, Inferior infarct is now Present Confirmed by MD Keo, Robi ([id number]) on 04/14/2019 4:18:40 PM Specimen Anatomical Collection Method Collection Time Receive d Time (Source) Location / / Volume Laterality 04/14/2019 9:36 AM 9 4:18 EDT PM EDT Clara Sheriff MD ECG ORDERABLES Performing Organization Address City/State/ZIP Code Phon e Number MUSE SYSTEM documented in this encounter Visit Diagnoses Diagnosis Mycobacterium avium complex Other specified mycobacterial diseases Medication monitoring encounter Encounter for therapeutic drug monitorin g Health care maintenance Unspecified general medical examination documented in this encounter Care Teams Machine Specialist Relationship Specialty Start Date End Date Tony Fuller PA PCP - General 09/29/13 03/01/20 [address] [place] [address] (work) documented as of this encounter
--- OUTSIDE RECORDS SUMMARY | 2022-02-08 09:08 | XMS_ITS | Encounter Summary ---
:1945 Author Organization [facility] [place] [address] Care Team Providers Name Role Phone Tony Fuller Primary Care Provider Encounter Details Date Type Department Care Team Description 06/30/2019 Notes Only Infectious Disease a t [facility] Dante Middleton, [place] [address] Social History Tobacco Use Types Packs/Day Years Used Date Former Smoker Quit: 09/29/18 84 Smokeless Tobacco: Never Used Alcohol Use Standard Drinks/Week Comments Yes 1.7 (1 standard drink = 0.6 oz pure alco hol) Sex Assigned at Date Recorded Not on file documented as of this encounter Progress Notes Dante Middleton RN - 06/30/2019 8:43 AM EST Message from patient, The office of concrete smoother Edwin Villeda just called from [facility]. ??He is associated with [facility]. ??He's at [facility] 4 days a week. I need a referral to see him. His fax # is [phone]. The office number is [phone]. Let me know if you think seeing him is a good idea. This was for warded to Dr. Clara Sheriff. ?? documented in this encounter Plan of Treatment Upcoming Encounters Date Type Specialty Care Team Description 02/24/2023 Hospital Encounter Gastroenterology Cristofer Armando MD [facility] DR GASTROENTEROLOGY [place], [place] [address] (Wo rk) Scheduled Procedures Name Priority Associated Diagnoses Date/Time COLONOSCOPY, DIAGNOSTIC H/O DIVERTICULITIS 10 DIALLO RVEILLANCE documented as of this encounter Visit Diagnoses Not on filedocumented in this encounter Care Teams Community Leader Relationship Specialty Start Date End Date Tony Fuller PA PCP - General 09/29/13 03/01/20 [address] [place] [address] documented as of this encounter
--- OUTSIDE RECORDS SUMMARY | 2022-02-08 09:08 | XMS_ITS | Encounter Summary ---
:1945 Author Organization [facility] [place] [address] Care Team Providers Name Role Phone Tony Fuller Primary Care Provider Encounter Details Date Type Department Care Team Description 05/06/2019 Telephone Infectious Disease a t [facility] Dante Middleton, [place] [address] Social History Tobacco Use Types Packs/Day Years Used Date Former Smoker Quit: 09/29/18 85 Smokeless Tobacco: Never Used Alcohol Use Standard Drinks/Week Comments Yes 1.7 (1 standard drink = 0.6 oz pure alco hol) Sex Assigned at Date Recorded Not on file documented as of this encounter Miscellaneous Notes Telephone Encounter - Dante Middleton RN - 05/06/2019 2:59 PM EDT Incoming call today from Ms. Mandy Foreman. 69yo female patient, followed by ID for treatment of MAC.Patient recently started on liposome amikacin nebulizer treatment, Arikayce. Has been taking this q.daily for past week to no ill effect, and pre-medicating with a bronchodilator prior to treatment (Albuterol). Assessment: Patient reports increased shortness of breath over the past few days, states feels worsepost treatment with Arikayce. Reports increased voice hoarseness/dyphonia, and increased cough. Denies fever, headache, chills. No increase in sputum production. No other changes from baseline reported. Plan: -Advised to take rescue inhaler to help with shortness of breath (had been previously discussed withpulmonary nurse [facility]/Dr. Gomez) -Reviewed with patient that these are common side effects seen with Arikayce treatment. -Advised good oral intake warm fluids to aid with hoarseness -Advised to seek urgent/emergency attention for worsening signs/symptoms-patient in agreement to plan -Take a medication holiday from Arikayce for next x7 days -This was communicated with Dr. Sheriff, also in agreement with plan -Follow up with patient later in afternoon and tomorrow morning to re-assess shortness of breath. documented in this encounter Plan of Treatment Upcoming Encounters Date Type Specialty Care Team Description 02/24/2023 Hospital Encounter Gastroenterology Cristofer Armando MD [facility] DR GASTROENTEROLOGY [place] [id number] (Wo rk) Scheduled Procedures Name Priority Associated Diagnoses Date/Time COLONOSCOPY, DIAGNOSTIC H/O DIVERTICULITIS 10 DIALLO RVEILLANCE documented as of this encounter Visit Diagnoses Not on filedocumented in this encounter Care Teams Tanner Rotary Drum Continuous Process Relationship Specialty Start Date End Date Tony Fuller PA PCP - General 09/29/13 03/01/20 [address] [place] [address] documented as of this encounter
--- OUTSIDE RECORDS SUMMARY | 2022-02-08 09:08 | XMS_ITS | Encounter Summary ---
:1945 Author Organization [facility] [place] [address] Care Team Providers Name Role Phone Maeve Birch MD Primary Care Provider Reason for Visit Reason Comments Procedure Encounter Details Date Type Department Care Team Description 08/18/2013 Office Visit Dermatology at [facility] rhytids (Primary Dx); Kendra Mendez MD Telangiectasias; [address] [facility] [place], [place] [address] [facility] [phone] RD-DERMATOLOGY [place] [id number] Social History Tobacco Use Types Packs/Day Years Used Date Former Smoker Smokeless Tobacco: Never Used Alcohol Use Standard Drinks/Week Comments Yes 1.7 (1 standard drink = 0.6 oz pure alco hol) Sex Assigned at Date Recorded Not on file documented as of this encounter Progress Notes Arcenio Varela MD - 08/18/2013 1:30 PM EST Mandy Foreman [id number] Chief complaint/Problem: 1. Upper lip atrophy and rhytids 2. Here to discuss Restylane Dermal Filler History/Subjective: 67 y.o. year old woman. Points out moderate lower lip atrophy and mild rhytids and furrowing of upper and lower cutaneous lip. Asks about fillers for this, which include Restylane, and the one I am most comfortable with. These lines in particular are not amenable to Botox. Overall healthy, discussed consent form, signed it. Knows that a nerve block with lidocaine will be needed. States that pain, bruising, bumpiness, swelling and possible re-injection to touch up are allpossibilities with injecting Restylane. Understands and agrees. Examination/Objective: Focal examination of the lips, mouth and lateral commissure area. Moderate upper and lower lip atropy up to the manuela border, and linearity/rhytids of the upper and lower cutanous lip. Amenable to Restylane. Diagnosis/Assessment: 1. 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 Amenable to Restylane dermal filler Treatment/ Plan: 1. Signed consent, understands risks, cost of $300 for half syringe. 2. There will be some redness, swelling, and bumpiness for the rest of the day. 3. Answered all other questions. Restylane Dermal Filler Procedure: - Topical anesthesia with Lidocaine 30% for at least 10 minutes. - Upper and lower manuela lip injected with with retrograde approach - Re-injected as needed for symmetry, massaged, molded and flatted manually. - Lip commissures injected, massaged, molded and flattened. - Minor/,inimal oozing - No significant complications Prescription for Rx: Retin-A 0.05% cream apply at bedtime as tolerated. (15 gram with PRN refill) Cost today $300. Chief Problem: 1. Telangiectasias 2. Here for Discussion of Treatment options HISTORY & DISCUSSION: 67 y.o. year old female, here for a medical consultation visit and discussion of telangiectasias treatment options, including the possibility of laser treatment. Camoflage and tanning creams, sclerotherapy, surgical options, including laser, were discussed at length. Over half of this visit devoted to these options and expectations. Patient was most interested in the V-beam laser treatment today. Discussed potential adverse events including pain or stinging (100%), possible bruising (common), hyperpigmentation and hypopigmentation, edema, erosion or blister formation (uncommon) and, extremely rarely, scarring. Patient clearly understood these risks. Multiple treatments will be required for optimum benefit. Total number of treatments depend on the baseline degree of telangiectasia, patient's response, expectations and desires. Patient clearly understood this. The patient knows that this procedure is strictly a cosmetic procedure, most insurances will not cover these procedures, and we will not submit it to the company. The patient will have to pay for the procedure, at the time of the visit. EXAMINATION: Focal examination of the face telangiectasias , moderately dense, scattered over both legs. DIAGNOSIS/ASSESSMENT: 1. Telangiectasias 2. Amenable to V-beam Laser therapy. PLAN: LASER PROCEDURE 1. Patient decided to have the laser procedure performed today, after the medical consultation and discussion above. Verbal consent, expectations, and potential adverse events re-discussed. Written consent signed and recorded in the chart. 2. Use of eyewear/eye protection and post-laser care, sun avoidance, mild washing re-discussed. Patient knows to call if there are any questions. 3. V-beam Settings: - V-beam (595nm): 9.25 J/m2 @ 10 msec10 mm Spot Size: Pulse: 86 9.25 J/m2 @ 20 msec10 mm Spot Size: Pulse: 15 4. V-Beam Laser Procedure: Applied V-beam guided head at skin surface, cryospray pre-laser, overlapping areas slightly, pulseduntil area adequately covered. No immediate post-laser complications. Follow-up as discussed. Call clinic with questions post-laser 5. No immediate post-laser complications. Follow-up as discussed and as needed. Cost: $ 225 TOTAL cosmetic cost today $[address] paid on way out today Follow up: as needed I am documenting this encounter acting as the scribe for and in the presence of Jorge Smith, BRAD. I performed the above scribed service and agree with the accuracy of the documentation in this encounter, Shelli Varela MD documented in this encounter Plan of Treatment Upcoming Encounters Date Type Specialty Care Team Description 02/24/2023 Hospital Encounter Gastroenterology Cristofer Armando MD [facility] DR GASTROENTEROLOGY [place], [place] [address] (Wo rk) Scheduled Procedures Name Priority Associated Diagnoses Date/Time COLONOSCOPY, DIAGNOSTIC H/O DIVERTICULITIS 10 DIALLO RVEILLANCE documented as of this encounter Visit Diagnoses Diagnosis Facial rhytids - Primary Other specified hypertrophic and atrophi c condition of skin Telangiectasias Other and unspecified capillary diseases Telangiectasia Other and unspecified capillary diseases documented in this encounter Care Teams Putter In Relationship Specialty Start Date End Date Maeve Birch MD PCP - General 08/18/13 09/28/13 [address] [place] [address] documented as of this encounter
--- OUTSIDE RECORDS SUMMARY | 2022-02-08 09:08 | XMS_ITS | Encounter Summary ---
:1945 [place] [address] Care Team Providers Name Role Phone Tony Fuller Primary Care Provider Encounter Details Date Type Department Care Team Description 04/17/2019 Hospital En[place] [address] Social History Tobacco Use Types Packs/Day [...] daily. tablet documented as of this encounter Procedure Notes Jony Solomon MD - 04/17/2019 11:59 PM EDTAssociated Order(s): PULMONARY FUNCTION TEST A. SPIROMETRY Reveals (Pre Bronchodilator based on FEV1 %predicted) a mild( > 70%) obstructive ventilatory dysfunction (OVD). B. DIFFUSING CAPACITY: The uncorrected diffusing capacity(DLCO) is within normal limits (>LLN-120%) C. PULSE OXIMETRY: Resting oxyhemoglobin saturation is normal. Resting oximetry was assessed while the patient was breathing room air. D. FINAL IMPRESSION: The normal or near normal DLCO in conjunction with OVD suggest the presence of asthma or COPD-bronchitic type. documented in this encounter Plan of Treatment Upcoming Encounters Date Type Specialty Care Team Description 02/24/2023 Hospital Encounter Gastroenterology Cristofer Armando MD [facility] ER GASTROENTEROLOGY [place], [place] [address] (Wo rk) Scheduled Procedures Name Priority Associated Diagnoses Date/Time COLONOSCOPY, DIAGNOSTIC H/O DIVERTICULITIS 10 DIALLO RVEILLANCE documented as of this encounter Procedures Procedure Name Priority Date/Time Associated Diagnosis Comme nts PULMONARY FUNCTION Routine 04/17/2019 11:59 Mycobacterium aviu m Results for this TEST PM EDT complex procedure are i n the results section. documented in this encounter Results Pulmonary Function Testing (04/17/2019 11:59 PM EDT) Narrative Jony Solomon MD - 04/17/2019 11:5 9 PM EDT Jony Solomon MD ? 04/27/2019 ??7:15 AM A. SPIROMETRY Reveals (Pre Bronchodilator based on FEV 1 %predicted) a mild( > 70%) obstructive ventilatory dysfunction (OVD). B. DIFFUSING CAPACITY: The uncorrected diffusing capacity(DLCO) is within normal limits (>LLN-120%) C. PULSE OXIMETRY: Resting oxyhemoglobin saturation is norm al. Resting oximetry was assessed while the patient was breathing room air. D. FINAL IMPRESSION: The normal or near normal DLCO in conjun ction with OVD suggest the presence of asthma or COPD-bronchiti c type. Murphy Gomez MD PFT ORDERABLES documented in this encounter Visit Diagnoses Diagnosis Mycobacterium avium complex Other specified mycobacterial diseases documented in this encounter Care Teams Radio Personality Relationship Specialty Start Date End Date Tony Fuller PA PCP - General 09/29/13 03/01/20 [address] [place] [address] documented as of this encounter
--- OUTSIDE RECORDS SUMMARY | 2022-02-08 09:08 | XMS_ITS | Encounter Summary ---
:1945 Author Organization [facility] [address] Care Team Providers Name Role Phone Tony Fuller Primary Care Provider Reason for Visit Reason Comments Thumb Pain RIGHT Encounter Details Date Type Department Care Team Description 08/24/2014 Office Visit Orthopaedics at [facility] Sara Gao, [facility] arthritis [facility] [place] [address] [facility] [phone] ORTHOPAEDIC SURG [place], [place] [address] (Wo rk) Social History Tobacco Use Types Packs/Day Years Used Date Former Smoker Quit: 09/29/18 85 Smokeless Tobacco: Never Used Alcohol Use Standard Drinks/Week Comments Yes 1.7 (1 standard drink = 0.6 oz pure alco hol) Sex Assigned at Date Recorded Not on file documented as of this encounter Last Filed Vital Signs Vital Sign Reading Time Taken Comments Blood Pressure 123/57 08/24/2014 11:28 AM EST Pulse 69 08/24/2014 11:28 AM EST Temperature - - Respiratory Rate - - Oxygen Saturation - - Inhaled Oxygen Concentration - - Weight 62.6 kg (138 lb) 08/24/2014 11:28 AM EST STATED Height 154.9 cm (5' 1) 08/24/2014 11:28 AM EST STAETD Body Mass Index 26.07 08/24/2014 11:28 AM EST documented in this encounter Progress Notes Sara Gao PA - 08/24/2014 12:23 PM EST PATIENT NAME: Mandy Foreman AGE: 68 y.o. MR#: [id number] DATE OF VISIT: 08/24/2014 DATE OF INJURY/ONSET: Chronic STAFF: Dr. Cuenca CHIEF COMPLAINT: follow up for right thumb pain HISTORY OF PRESENT ILLNESS: Ms. Foreman is a 68 y.o. year old female who comes into clinic today for follow up regarding the right thumb. She has been evaluated by Rubens Buckley in the past. At that time she was diagnosed with symptomatic CMC joint arthritis. She also had some palpable nodules along the f lexor tendons. She is not currently having any triggering, but has noticed increasing pain at the base of the thumb. She has not had any new injuries. She has been using both rigid and soft foam splints. She finds that the soft splint is helpful. She presents today with repeat films to see if there has been any progression of her arthritis. PHYSICAL EXAM: Ms. Foreman is alert and oriented. She appears in no acute discomfort and is resting comfortably in the exam room. Inspection: No erythema, ecchymosis, or swelling involving the patient's right hand. Palpation: There is some palpable crepitus over the CMC joint of the right thumb. There is no palpable triggering along the flexor tendon and she does not have any localized pain over the A1 serafin. ROM/Strength: EPL, FPL tendons are intact. She feels that she has some stiffness and pain with tightgrip. Orthopedic testing: Positive CMC grind. Negative Cely's. No evidence of MCP joint instability. Neurovascular: Normal motor function of the radial, median, and ulnar nerves. Normal sensation alongradial, median, and ulnar nerve distributions. Good hand perfusion. RADIOLOGICAL STUDIES: X-rays from today show no acute injuries. She continues to have arthritic changes in the thumb. ASSESSMENT: Symptomatic right thumb arthritis PLAN: We discussed treatment options for basal joint arthritis including hand therapy, rigid and soft splints, warm soaks including paraffin baths, topical analgesics, cortisone injection, and basal joint arthroplasty. We also discussed that discomfort is typically more severe at the initial onset andoften times the pain will subside over time without invasive treatment. She will continue with the neoprene splinting as needed. We also discussed that she may find warm soaks and paraffin wax baths helpful. She does not feel that more invasive treatment would be needed at this time, but cortisone injection could be considered if her symptoms were to significantly worsen. She will return for follow up as needed. The patient understands to contact us if they have any other questions or concerns. The above documentation was completed using [employer] voice recognition software. documented in this encounter Plan of Treatment Upcoming Encounters Date Type Specialty Care Team Description 02/24/2023 Hospital Encounter Gastroenterology Cristofer Armando MD [facility] ER DR GASTROENTEROLOGY [place], [place] [address] (Wo rk) Scheduled Procedures Name Priority Associated Diagnoses Date/Time COLONOSCOPY, DIAGNOSTIC H/O DIVERTICULITIS 10 DIALLO RVEILLANCE documented as of this encounter Visit Diagnoses Diagnosis CMC arthritis Unspecified arthropathy, hand documented in this encounter Care Teams Physician Practice Market Manager Relationship Specialty Start Date End Date Tony Fuller PA PCP - General 09/29/13 03/01/20 [address] [place] [address] documented as of this encounter
--- OUTSIDE RECORDS SUMMARY | 2022-02-08 09:08 | XMS_ITS | Encounter Summary ---
:1945 Author Organization [facility] [place] [address] Care Team Providers Name Role Phone Nakita Pruitt MD Primary Care Provider Encounter Details Date Type Department Care Team Description 02/24/2013 Hospital Encounter Gastroenterology at [facility] Saba Alegria MD [facility] [place] [address] [facility] Tejinder Becker MD [facility] [place] [address] [place] [address] Social History Tobacco Use Types Packs/Day Years Used Date Former Smoker Alcohol Use Standard Drinks/Week Comments Yes 1.7 (1 standard drink = 0.6 oz pure alco hol) Sex Assigned at Date Recorded Not on file documented as of this encounter Last Filed Vital Signs Vital Sign Reading Time Taken Comments Blood Pressure 102/57 02/24/2013 9:53 AM EDT Pulse 60 02/24/2013 9:53 AM EDT Temperature 36.4 ??C (97.5 ??F) 02/24/2013 8:24 AM EDT Respiratory Rate 16 02/24/2013 9:53 AM EDT Oxygen Saturation 95% 02/24/2013 9:53 AM EDT Inhaled Oxygen Concentration - - Weight - - Height - - Body Mass Index - - documented in this encounter Discharge Instructions Discharge InstructionsMadeleine Ruvalcaba RN - 02/24/2013 10:00 AM EDT Colonoscopy and polyp removal What to expect after the procedure You may feel a little more gassy or bloated than usual, this is normal. You should expect the return of normal bowel function in the next 2 to 3 days. Because some polyps were removed, you may see a little blood with the next few bowel movements, this should be a small amount ( less than a few tablespoons) and will resolve on it's own. ACTIVITY Because of the sedation that you received Your judgement and reaction time are effected ?? Go home and rest for the remainder for the day. You may resume your normal activities tomorrow ?? Change from one position to the next slowly because you may lose your balance unexpectedly. ?? Be careful on stairs, as you may be unsteady. FOR THE NEXT 24 HRS ?? DO NOT DRIVE OR OPERATE MACHINERY ?? DO NOT DRINK ALCOHOLIC BEVERAGES ?? DO NOT SIGN LEGAL DOCUMENTS ?? If you are a smoker: DO NOT SMOKE WHILE YOU ARE ALONE Diet ?? Start by eating small portions of foods that ordinarily will not upset your stomach, avoid gas producing foods for the next few days. ?? Be gentle with what you choose to start with ?? A soft diet may be helpful for the next 3 days as this may help to keep your stools soft. ?? Drink plenty of fluids ( unless your doctor has told you not to). Medicines Avoid medicines that influence the way your blood clots for the next week. These would include anti-inflammatory medicine, such as ibuprofen( Advil, Motrin) and naproxen ( Aleve). If you need something for discomfort, Tylenol (Acetaminophen) is safe if used as directed. Your Doctor will tell you whento restart your prescribed blood thinners The IV site-- slight tenderness, or redness is normal, you can use warm compresses if you get concerned. If the tenderness +/or redness increases or foul drainage and a red streak occurs, please contact your PCP immediately. When should you call for help? Call 911 anytime you think you may need emergency care. For example If you pass out (loss of consciousness) If you pass maroon or bloody stools If you have severe belly pain Call your healthcare provider or seek immediate medical care if: Your stools are black or tar like Your stools have streaks of blood that is more pronounced with each BM You have belly pain, or your belly is swollen and firm You vomit You have a fever You are very dizzy Watch closely for changes in your health, and be sure to contact your doctor if you have any problems. Your Doctor will let you know when you will need your next colonoscopy. The results of your test andyour risk for colorectal cancer will help your doctor decide how often you need to be checked. Saturday-Saturday Clinic [phone] 8a-5p Same Day Endo [phone] 7a-8p Otherwise contact [phone] and ask to speak to the test technician project controls scheduler Follow up care is a camara part of your treatment and safety. Be sure to make and go to all appointments, and call your doctor if you are having problems. Discharge instructions reviewed with patient who expresses understanding AttachmentsThe following attachments cannot be sent through Care Everywhere. COLON POLYPS: AFTER YOUR VISIT (SINGAPOREAN)documented in this encounter Medications at Time of Discharge Medication Sig Dispensed Refills Start Date End Date propranolol (INDERAL) 40 Take 80 mg by mouth 0 05/16/2019 mg tabletIndications: daily. migraine prevention tretinoin (RETIN-A) 0.05 Apply topically 20 g 3 201108/18/2013 % creamIndications: nightly. Wrinkles escitalopram (LEXAPRO) Take 10 mg by mouth 0 08/18/2013 10 mg tablet daily. aspirin 81 mg chewable Take 81 mg by mouth 0 09/29/2013 tablet daily. traZODone (DESYREL) 100 Take 100 mg by mouth 0 08/18/2013 mg tablet nightly. cyanocobalamin, vitamin Take 100 mcg by mouth 0 04/06/2020 B-12, 100 mcg tablet daily. documented as of this encounter H&P Notes Tejinder Armando MD - 02/24/2013 8:41 AM EDT Gastroenterology and Hepatology Pre-Procedure History and Physical Exam Procedure: Colonoscopy: Indication: screen Patient Active Problem List Diagnosis Code ??? Persistent headaches 784.0 ??? Rosacea 695.3 ??? Telangiectasia 448.9 ??? Seborrheic keratosis 702.19 ??? Inflamed seborrheic keratosis 702.11 EXAM: HEENT: Airway examined, oropharynx clear LUNGS: Clear to auscultation HEART: Regular rate and rhythm, normal S1, S2 ABDOMEN: Normal bowel sounds, soft, non tender, non distended, A/P Proceed with the planned endoscopic procedure. Risks and benefits of the procedure explained to the patient. Consent signed. documented in this encounter Miscellaneous Notes Miscellaneous - Provider, Scanning - 02/24/2013 10:03 AM EDT documented in this encounter Plan of Treatment Upcoming Encounters Date Type Specialty Care Team Description 02/24/2023 Hospital Encounter Gastroenterology Cristofer Armando MD [facility] DR GASTROENTEROLOGY [place], [place] [address] (Wo rk) Scheduled Procedures Name Priority Associated Diagnoses Date/Time COLONOSCOPY, DIAGNOSTIC H/O DIVERTICULITIS 10 DIALLO RVEILLANCE documented as of this encounter Procedures Procedure Name Priority Date/Time Associated Diagnosis Comme nts SURGICAL PATHOLOGY Routine 02/24/2013 9:50 Result s for this REPORT AM EDT procedure are i n the results section. SPECIMEN TO Routine 02/24/2013 9:50 Results for this PATHOLOGY AM EDT procedure are i n the results section. COLONOSCOPY, 02/24/2013 9:26 H/O DIVERTICULITIS 10 DIAGNOSTIC AM EDT SURVEILLANCE COLONOSCOPY Routine 02/24/2013 9:25 Results for this AM EDT procedure are i n the results section. documented in this encounter Results Surgical Pathology Report (02/24/2013 9:50 AM EDT) [facility] Method Time Signature Surgical CERNER Pathology ? [facility] Report ? Provider: ?? BENSEN, TEJINDER P ?Pt. Name: ?? ABBE A, MANDY W ? Acc #: ?[id number] ?Pt. MRN: ?[id number] ? Col Date: ?? 3 ? /Sex: ?1945,(67 years),Female ? Rec Date: ?? 02/24/2013 ? LOC: ?4T ? SURGICAL PATHOLOGY ? ---Pathologic Diagnosis--- ? Endoscopic biopsy - Hyperplastic polyp. ? Cr-PX ? 02/25/13 ? AAS ? 02/25/13 Verified by: ? Maia Dowd MD ? Pathologist ? (Electronic Si gnature) ? The attending pathologist whose signature appears o n this report has ? reviewed all diagnostic slides and has edited the isabela ss and/or ? microscopic portion of the report in rendering the fi nal pathologic ? diagnosis. ? ---Gross Description--- ? A - Labeled/Fixative: 3 mm polyp transverse colon, fo rmalin. ? Quantity/Size: One, 0.4 x 0.3 x 0.2 cm. ? Tissue Description: Soft castorena tissue. ? Sections/Processing: (T1) ??KSB ? ---Clinical Information--- ? Specimen Submitted: ? A - 3 mm polyp trans colon ? Clinical History: ? Patient with diminutive polyp ? Clinical Diagnosis: ? Same Specimen (Source) Anatomical Collection Method Collection Time Re ceived Time Location / / Volume Laterality 02/24/2013 9:50 AM EDT Tejinder Armando MD PATHOLOGY/CYTOLOGY ORDERABLE S Performing Organization Address City/State/[place] [address] [facility] Specimen to Pathology (surgical or derm) (02/24/2013 9:50 AM EDT) Specimen Anatomical Collection Method Collection Time Receive d Time (Source) Location / / Volume Laterality AP Specimen 02/24/2013 9:50 AM 201 3 9:50 EDT AM EDT Narrative CERNER MILLENNIUM - 02/24/2013 9:50 AM E DT Specimen requisition ordered. ??Separate Pathology report to follow Tejinder Armando MD PATHOLOGY/CYTOLOGY ORDERABLE S Performing Organization Address City/[facility] [place] [address] CERNER MILLENNIUM COLONOSCOPY (02/24/2013 9:25 AM EDT) [facility] Method Time Signature COLONOSCOPY [facility] Endoscopy Patient Name: Mandy Foreman ? Procedure Date: 02/24/2013 9:25 AM ? N: [id number] ? Date of : 1945 ? Age: 67 ? Order #: [id number] ? Procedure: ? Colonoscopy Indications: ? Screening for colorectal malignant ? neoplasm, ? S/p sigmoid resection for ? diverticulitis Providers: ? Tejinder Armando MD, Jolly Gonzalez , ? RN, Mandy Guzmán, Program Specialist Referring MD: ?Nakita Pruitt MD Medicines: ? Midazolam 3 mg IV, Fentanyl 100 ? micrograms IV Complications: ? No immediate complications. Procedure: ? Pre-Anesthesia Assessment: ? - ASA Grade Assessment: I - A normal, ? healthy patient. ? The procedure, indications, b enefits, ? risks and alternatives were e xplained ? to the patient. Specifically ? discussed were potential ? complications including, but not ? limited to, bleeding, perfora tion, ? infection, missing a cancer, and ? adverse medication reactions. The ? patient was placed in the lef t ? lateral decubitus position, a nd a ? digital rectal exam was perfo rmed. ? The Colonoscope was inserted in the ? anus and under direct visuali zation, ? advanced to the terminal ileu m. ? Careful inspection was made a s the ? colonoscope was withdrawn. Th e ? colonoscopy was performed wit elly ? difficulty. The patient sudheer ated the ? procedure well. The quality o f the ? bowel preparation was excelle nt. ? Scope withdrawal time was 11 minutes. ? Findings: ? S/p sigmoid resection with normal wide open ? anastomosis at 15 cm ? A pedunculated polyp was found in the transverse ? colon. The polyp was 3 mm in size. The polyp was ? removed with a cold biopsy forceps. Resection and ? retrieval were complete. ? A few large-mouthed diverticula were found in the ? descending colon and in the transverse colon. ? The terminal ileum appeared normal. ? Internal hemorrhoids were found during retroflexion ? and were small. ? Impression: ?- One 3 mm polyp in the transverse ? colon. Resected and retrieved . ? - Diverticulosis in the desce nding ? colon and in the transverse c olon. ? - The examined portion of the ileum ? was normal. ? - Internal hemorrhoids. Recommendation: ?- Await pathology results. ? Tejinder Armando MD 02/24/2013 9:54 AM This report has been signed electronically. Number of Addenda: 0 Note Initiated On: 02/24/2013 9:25 AM Specimen (Source) Anatomical Collection Method Collection Time Re ceived Time Location / / Volume Laterality 02/24/2013 9:25 AM EDT Nakita Pruitt MD GENERAL SURGICAL ORDERABLES Performing Organization Address City/State/ZIP Code Phon e Number [facility] documented in this encounter Visit Diagnoses Not on filedocumented in this encounter Administered Medications Inactive Administered Medications - up to 3 most recent administrations Medication Order MAR Action Action Date Dose Rate Site sodium chloride 0.9% New Bag 02/24/2013 8:30 AM EDT 30 mL/hr 30 mL/hr infusion 30 mL/hr, Intravenous, CONTINUOUS, Starting on Sat02/24/13 at 0830, Until Sat02/24/13 at 1633, Endoscopy (Day of Procedure) documented in this encounter Active and Recently Administered Medications Times are shown in EDT. Continuous Medication Order 02/22/2013 02/23/2013 02/24/2013 sodium chloride 0.9% infusion (CANCELED) 0830 (New Bag - Provider: Kenna Jackson RN) 30 mL/hr, at 30 mL/hr, Intravenous, CONT INUOUS, Starting Sat02/24/13 at 0830, Until Sat02/24/13 at 1633, Endo (Day of Procedure) PRN Medication Order 02/22/2013 02/23/2013 02/24/2013 fentaNYL 50mcg/mL injection (CANCELED) 0930 (Given - Provider: Jolly Gonzalez, ADITHYA)0934 (Given - Provider: Jolly Gonzalez, ADITHYA)0937 (Given - Provider: Jolly Gonzalez, ADITHYA) ONCE PRN, Starting Sat02/24/13 at 0930, Until Sat02/24/13 at 1633, Pain, Intra- Operative (Intra-Procedure), Routine midazolam (VERSED) injection (CANCELED) 0930 (Given - Provider: Jolly Gonzalez, RN)0934 (Given - Provider: Jolly Gonzalez, RN)0937 (Given - Provider: Jolly Gonzalez, RN) ONCE PRN, Starting Sat02/24/13 at 0930, Until Sat02/24/13 at 1633, Sleep, Intra- Operative (Intra-Procedure), Routine documented in this encounter Care Teams Trench Digger Helper Relationship Specialty Start Date End Date Nakita Pruitt MD PCP - General 06/06/10 08/17/13 [facility] [address] [place] [address] [place] [address] documented as of this encounter
--- OUTSIDE RECORDS SUMMARY | 2022-02-08 09:08 | XMS_ITS | Encounter Summary ---
:1945 Author Organization [facility] [place] [address] Care Team Providers Name Role Phone Tony Fuller Primary Care Provider Encounter Details Date Type Department Care Team Description [facility]/29[facility] [place] [phone] Social History Tobacco Use Types Packs/Day Years Used Date Former Smoker Quit: 09/29/18 85 Smokeless Tobacco: Never Used Alcohol Use Standard Drinks/Week Comments Yes 1.7 (1 standard drink = 0.6 oz pure alco hol) Sex Assigned at Date Recorded Not on file documented as of this encounter Miscellaneous Notes Telephone Encounter - Sue Rose RN - 04/29/2019 12:35 PM EDT Called patient in reference to question, and explained differences with brand name albuterol. Patient verbalized that this had been explained to her prior to call, and she was no longer concerned, because she had not read the chemical name at the time. Patient is requesting clarification of EKG results from Dr. Gomez, and to the level of seriousnessthese results are. Telephone Encounter - Sue Rose RN - 04/29/2019 12:33 PM EDT ----- Message from Mandy Foreman sent at 04/25/2019 4:05 PM EDT ----- Regarding: Medication Question (not renewal) Contact: Ca Dr. Gomez, My inhaler just arrived from [facility] and it is Proair HFA 90 MCG, they substitutedit for Albuterol Sulfate. Is it okay for me to use it in place of the one you ordered? If not I can see if our local pharmacy's have it. I will need to know the exact Rx I'm inquiring about. Thank you, Mandy documented in this encounter Plan of Treatment Upcoming Encounters Date Type Specialty Care Team Description 02/24/2023 Hospital Encounter Gastroenterology Cristofer Armando MD [facility] DR GASTROENTEROLOGY [place], [place] [address] (Wo rk) Scheduled Procedures Name Priority Associated Diagnoses Date/Time COLONOSCOPY, DIAGNOSTIC H/O DIVERTICULITIS 10 DIALLO RVEILLANCE documented as of this encounter Visit Diagnoses Not on filedocumented in this encounter Care Teams Travel Ot Relationship Specialty Start Date End Date Tony Fuller PA PCP - General 09/29/13 03/01/20 [address] [place] [address] documented as of this encounter
--- OUTSIDE RECORDS SUMMARY | 2022-02-08 09:08 | XMS_ITS | Encounter Summary ---
:1945 Author Organization [facility] [place] [address] Care Team Providers Name Role Phone Tony Fuller Primary Care Provider Encounter Details Date Type Department Care Team Description 04/21/2019 Notes Only Infectious Disease a [facility] [place] [address] Social History Tobacco Use Types Packs/Day Years Used Date Former Smoker Quit: 09/29/18 85 Smokeless Tobacco: Never Used Alcohol Use Standard Drinks/Week Comments Yes 1.7 (1 standard drink = 0.6 oz pure alco hol) Sex Assigned at Date Recorded Not on file documented as of this encounter Progress Notes Dante Middleton RN - 04/21/2019 12:23 PM EDT [address] pg 3. Refill form faxed to [place] for review. documented in this encounter Plan of Treatment Upcoming Encounters Date Type Specialty Care Team Description 02/24/2023 Hospital Encounter Gastroenterology Cristofer Armando MD [facility] ER GASTROENTEROLOGY [place], [place] [address] (Wo rk) Scheduled Procedures Name Priority Associated Diagnoses Date/Time COLONOSCOPY, DIAGNOSTIC H/O DIVERTICULITIS 10 DIALLO RVEILLANCE documented as of this encounter Visit Diagnoses Not on filedocumented in this encounter Care Teams Medical Billing Associate Relationship Specialty Start Date End Date Tony Fuller PA PCP - General 09/29/13 03/01/20 [address] [place] [address] documented as of this encounter
--- OUTSIDE RECORDS SUMMARY | 2022-02-08 09:08 | XMS_ITS | Encounter Summary ---
:1945 [place] [address] Care Team Providers Name Role Phone Tony Fuller Primary Care Provider Encounter Details Date Type Department Care Team Description 05/13/2019 Office Visit Infectious Disease at Kirill Mullins MD Mycobacterium avium infection (Primary D x); [facility] Antibiotic causing adverse e ffect; [facility] Side effect of medication; [facility] INFECTIOUS Mild shortness of breath [place], [place] DISEASE [address] [place] [id number] [phone] Social History Tobacco Use Types Packs/Day Years Used Date Former Smoker Quit: 09/29/18 84 Smokeless Tobacco: Never Used Alcohol Use Standard Drinks/Week Comments Yes 1.7 (1 standard drink = 0.6 oz pure alco hol) Sex Assigned at Date Recorded Not on file documented as of this encounter Last Filed Vital Signs Vital Sign Reading Time Taken Comments Blood Pressure 133/70 05/13/2019 11:12 AM EDT Pulse 87 05/13/2019 11:12 AM EDT Temperature 36.6 ??C (97.9 ??F) 05/13/2019 11:12 AM EDT Respiratory Rate - - Oxygen Saturation 96% 05/13/2019 11:12 AM EDT RA Inhaled Oxygen Concentration - - Weight - - Height - - Body Mass Index - - documented in this encounter Progress Notes Sissy Mullins MD - 05/13/2019 11:00 AM EDT INFECTIOUS DISEASE CLINIC EVALUATION Reason for referral: - Cough and shortness of breath post use of Arikayce (amikacin liposomal inhalation suspension) - Recently established care with Dr. Sheriff for recurrent MAC infection PCP: ALEXANDRE Holcomb [address] [place] [address] Background: Mandy Foreman is a 73 y.o. female previously seen In ID clinic for recurrent MAC infection initially diagnosed in 2006. She was treated with triple antibiotics. Relapsed in 2017 and has not converted with persistent abnormalities on CT chest and PFT's showing worsening obstructive disease with FEV1 72%. She was started on Arikayce in addition to triple antibiotic regimen of ethambutol, azithromycin andrifampin. Subjective: She comes in today for an urgent evaluation for symptoms secondary to adverse effects from Arikayce. Timeline of symptoms as follows: *04/29- Arikayce started. Daily x 1week. No symptoms noted during this time. Used inhaler pretreatment. *05/06- Developed shortness of breath. No associated with fever, chills, URI symptoms , sick contacts. Presented to urgent care and Arikayce was stopped. Continued to use inhaler up to 3 times a day but not scheduled. Started on prednisone 50 mg daily x 5 days. *05/11- Developed chest pain and non productive cough(mstly night time). Presented to ED after discussion with PCP- cardiac etiology ruled out. Stated yesterday symptoms had improved significantly but today was little worse. Able to carry out day to day activities. Shortness of breath or cough is not related to exertion. Both improve with albuterol inhaler use. No significant GERD symptoms, no post nasal drip. No muscle pain or weakness, no GI or symptoms. Review of Systems: Pertinent positives and negatives noted as above. All other systems reviewed and found negative. Problem list: Patient Active Problem List Diagnosis Code ??? Rosacea L71.9 ??? Telangiectasia I78.1 ??? Seborrheic keratosis L82.1 ??? Inflamed seborrheic keratosis L82.0 ??? 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 Nodule of finger - right long and left ring R22.30 ??? Chronic airflow obstruction J44.9 ??? 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 Hypothyroidism E03.9 ??? History of paroxysmal supraventricular tachycardia Z86.79 ??? Mixed anxiety and depressive disorder F41.8 ??? Mild obstructive sleep apnea treated with continuous positive airway pressure (CPAP) G47.33, Z99.89 ??? Migraine headache G43.909 ??? Diverticulosis K57.90 ??? Osteopenia M85.80 ??? History of insomnia Z87.898 ??? Fatigue R53.83 ??? Bronchiectasis J47.9 Past medical surgical, family, social history and allergies reviewed. Please refer to ID consult note. Pertinent Medications: Current Outpatient Medications Medication Sig Dispense Refill ??? ARIKAYCE 590 mg/8.4 mL Suspension for Nebulization On hold right now ??? albuterol (VENTOLIN HFA) 90 mcg/actuation HFA Aerosol Inhaler Inhale 2 puffs into the lungs every morning. Prior to Arikayce dose. 1 Inhaler 11 ??? ethambutol (MYAMBUTOL) 400 mg Tablet ??? rifAMPin (RIFADIN) 300 mg Capsule 300 mg 2 times daily. ??? azithromycin (ZITHROMAX) 500 mg Tablet 500 mg daily. ??? diazePAM (VALIUM) 5 mg Tablet 5 mg. ??? venlafaxine (EFFEXOR-XR) 37.5 mg Capsule, Sust. Release 24 hr daily. ??? ibuprofen (ADVIL;MOTRIN) 800 mg Tablet Take 1 tablet by mouth 3 times daily as needed. ??? temazepam (RESTORIL) 15 mg capsule Take 15 mg by mouth nightly as needed. ??? omeprazole (PRILOSEC) 40 mg Capsule, Delayed Release(E.C.) Take 1 capsule by mouth daily. ??? tretinoin (RETIN-A) 0.05 % cream Apply topically nightly. Physician will not do prior authorization (Patient not taking: Reported on 04/14/2019) 15 g prn ??? cyanocobalamin, vitamin B-12, 100 mcg tablet Take 100 mcg by mouth daily. No current facility-administered medications for this visit. Physical Exam: Most Recent Vitals: 05/13/19 1112 BP: 133/70 Pulse: 87 Temp: 36.6 ??C (97.9 ??F) SpO2: 96% General In no acute distress HEENT NC/AT, no sinus tenderness Heart S1/S2 no MRG Lungs CTA B/L Abdomen Positive bowel sounds, Soft, NT,ND Extremities No edema, cyanosis or clubbing Skin No rash Neuro AAOx3, no gross focal deficits Laboratory/Microbiology data: No new data. All labs in eDH reviewed. 10/01/2018 MAC DST clarithromycin JENNIFER 1 (S), AMK 8, LZD 16 (I), EMB 4, RMP 4, RFB <0.25. Imaging/Procedures: 05/13/2019 Chest radiograph Slightly low lung volumes with mild bibasilar atelectasis. No other interval change. Impression: Mandy Foreman is a 73 y.o. yeal old female with relapsed MAC infection being treated with ethambutol, rifampin and azithromycin. Recently started Arikayce with adverse effect, which is expected with the medication. Arikayce was stopped and symptoms treated with albuterol inhaler and steroids. Completed steroid therapy. Not typical for bacterial pneumonia with lack of fevers chills productive cough. She should not develop atypical pneumonia on azithromycin. No URI symptoms make a viral process less likely. Non infectious causes such as GERD and Upper airway cough syndrome considered. Symptoms most likely secondary to Arikayce. Recommend continued albuterol use as she was but use scheduled rather than PRN. Chest xray not sowing any significant pathology, if symptoms worsen then may consider CT chest and PFTs. We discussed rechallenging with Arikayce, she was hesitant at first but agreeable to rechallenge. She will try restarting at a less frequent dosing of 3 times a week and increase as tolerated. She has an appointment scheduled with Dr Sheriff and would like to try again prior to that appointment so can determine if Arikayce should be continued or stopped. Sputum culture to be obtained for AFB culture, however would have to be induced. Will hold from doing so today, consider for next visit. Plan: - Respiratory symptoms of nonproductive cough and shortness of breath secondary to Arikayce associated bronchspasm. - Recommend continued inhaler therapy, scheduled and regular use of Aerobika device among other airway clearance techniques recommended by Pulmonary. - Re-challenge with Arikayce and continue to monitor symptoms. - She will continue to monitor for drug related toxicities. Visit with ophthalmology next visit. - ID follow up with Dr Sheriff as scheduled - Care management provided by Dante Middleton. This patient was seen and discussed with ID attending Dr. Efrem Lowe. This note will be electronically communicated with the referring provider. Sissy Mullins Infectious Disease fellow Pager [phone] Efrem Lowe MD - 05/13/2019 11:00 AM EDT I interviewed, examined and discussed the patient with Dr. Mullins with whose findings and recommendations I concur. Dr. Mullins, Dante Middleton and I had a lengthy discussion with Ms. Foreman about options and strategies and we agreed that it would make most sense to re-challenge with Arikayce in anticipation of scheduled appointment with Dr. Sheriff, but that we would do so initially with intermittent therapy with a goal of improving tolerability. She will be in touch with Dante after she re-challenges. documented in this encounter Plan of Treatment Upcoming Encounters Date Type Specialty Care Team Description 02/24/2023 Hospital Encounter Gastroenterology Cristofer Armando MD [facility] DR GASTROENTEROLOGY [place], [place] [address] (Wo rk) Scheduled Procedures Name Priority Associated Diagnoses Date/Time COLONOSCOPY, DIAGNOSTIC H/O DIVERTICULITIS 10 DIALLO RVEILLANCE documented as of this encounter Visit Diagnoses Diagnosis Mycobacterium avium infection - Primary Pulmonary diseases due to other mycobact eria Antibiotic causing adverse effect Side effect of medication Mild shortness of breath documented in this encounter Care Teams Wet Process Head Miller Relationship Specialty Start Date End Date Tony Fuller PA PCP - General 09/29/13 03/01/20 [address] [place] [address] documented as of this encounter
--- OUTSIDE RECORDS SUMMARY | 2022-02-08 09:08 | XMS_ITS | Encounter Summary ---
:1945 Author Organization [facility] [place] [address] Care Team Providers Name Role Phone Tony Fuller Primary Care Provider Encounter Details Date Type Department Care Team Description 04/16/2019 Orders Only Pulmonology at [facility] Murphy Gomez, Mycobacterium avium [facility] MD complex (Primary Dx) [place] [address] CENTER [phone] PULMONARY MEDICINE [place], [place] [address] Social History Tobacco Use Types Packs/Day Years [...] 02/24/2023 Hospital Encounter Gastroenterology Cristofer Armando MD [facility] ER GASTROENTEROLOGY [place], [place] [address] (Wo rk) Scheduled Procedures Name Priority Associated Diagnoses Date/Time COLONOSCOPY, DIAGNOSTIC H/O DIVERTICULITIS 10 DIALLO RVEILLANCE documented as of this encounter Results Pulmonary Function Testing (04/17/2019 11:59 PM EDT) Narrative oJny Solomon MD - 04/17/2019 11:5 9 PM [...] encounter Visit Diagnoses Diagnosis Mycobacterium avium complex - Primary Other specified mycobacterial diseases Mycobacterium avium complex Other specified mycobacterial diseases documented in this encounter Care Teams Oral Surgery Technician Relationship Specialty Start Date End Date Tony Fuller PA PCP - General 09/29/13 03/01/20 [address] [place] [address] documented as of this encounter
--- OUTSIDE RECORDS SUMMARY | 2022-02-08 09:08 | XMS_ITS | Encounter Summary ---
:1945 Author Organization [facility] [place] [address] Care Team Providers Name Role Phone Tony Fuller Primary Care Provider Reason for Visit Reason Onset Date Comments Shortness of Breath 05/06/2019 Encounter Details Date Type Department Care Team Description 05/06/2019 Telephone Pulmonology at [facility] Rose Shortness of Breath [facility] [place] [address] RN [phone] Social History Tobacco Use Types Packs/Day Years Used Date Former Smoker Quit: 09/29/18 84 Smokeless Tobacco: Never Used Alcohol Use Standard Drinks/Week Comments Yes 1.7 (1 standard drink = 0.6 oz pure alco hol) Sex Assigned at Date Recorded Not on file documented as of this encounter Miscellaneous Notes Telephone Encounter - Sue Rose RN - 05/06/2019 3:05 PM EDT As per discussion with Dr. Gomez, RN collaborated with ID ADITHYA Middleton for patient. Hanna was in contact with patient, whom had taken albuterol with positive effect. Plan for patient is to hold arikayce, continue to take albuterol, and follow up with office in a fewdays. Patient verbalized that if she were to have any negative changes that she would seek immediatemedical intervention, and utilize friends that she was with if she needed transport or assistance. Once patient calls back to office, re-eval to occur for Arikayce. Telephone Encounter - Sue Rose RN - 05/06/2019 2:27 PM EDT Rec'd page from Manish, whom was called back, and was stating that patient was in need of assistance as she was having problems with her MAC. Patient newly started on Arikayce. Called patient back to mobile number as indicated by Manish. Patient stated that she developed increased shortness of breath in the past day. She stated that she was due to take another treatment of Arikayce. Unable to take a deep breath. Negative chest pressure sensations per patient, and no others/sx that she can discern when asked. She did however, cite that she had noted increased hoarseness this morning, however still travelled to [place]. This is the 7th day of being on Arikayce. Her current regiment involves taking her albuterol inhalerone hour prior to Arikayce administration in the morning. This is the first time there has been any major problems noted by patient. e.g.: Albuterol in AM before Arikayce, 1:30, then 2:30. While on phone with patient, she stated that her shortness of breathing has been slightly better in the last 10 minutes. She is currently in [facility]. Plan was for RN to notify Dr. Gomez, and patient to take dose of rescue inhaler (Albuterol HFA) inefforts to open up air ways to see if this would allow her to get a sense of smith breathing. documented in this encounter Plan of Treatment Upcoming Encounters Date Type Specialty Care Team Description 02/24/2023 Hospital Encounter Gastroenterology Cristofer Armando MD [facility] GASTROENTEROLOGY [place], [place] [address] (Wo rk) Scheduled Procedures Name Priority Associated Diagnoses Date/Time COLONOSCOPY, DIAGNOSTIC H/O DIVERTICULITIS 10 DIALLO RVEILLANCE documented as of this encounter Visit Diagnoses Not on filedocumented in this encounter Care Teams Batterboard Setter Relationship Specialty Start Date End Date Tony Fuller PA PCP - General 09/29/13 03/01/20 [address] [place] [address] documented as of this encounter
--- OUTSIDE RECORDS SUMMARY | 2022-02-08 09:08 | XMS_ITS | Encounter Summary ---
:1945 Author Organization [facility] [place] [address] Care Team Providers Name Role Phone Tony Fuller Primary Care Provider Reason for Referral Diagnostic Test (Routine) - Closed Specialty Diagnoses / Procedures Referred By Contact Refer red To Contact Radiology Diagnoses Mycobacterium avium infection Clara Sheriff MD [facility] Rad [facility] Scan Procedures CT Chest wo Contrast (Generic) [facility] [place] [address] [place] [address] Referral ID Status Reason Start Date Expiration Date Visits V isits Requested Authorized [id number] Closed Specialty 06/09/2019 06/08/2020 1 1 Service Requested Reason for Visit Reason Comments Follow-up Encounter Details Date Type Department Care Team Description 06/09/2019 Office Visit Infectious Disease Clara Sheriff Myco bacterium avium infection; [place] [facility] [place] Medication monitoring encounter [facility] [place] [address] [place] [address] (Wo rk) Social History Tobacco Use Types Packs/Day Years Used Date Former Smoker Quit: 09/29/18 85 Smokeless Tobacco: Never Used Alcohol Use Standard Drinks/Week Comments Yes 1.7 (1 standard drink = 0.6 oz pure alco hol) Sex Assigned at Date Recorded Not on file documented as of this encounter Last Filed Vital Signs Vital Sign Reading Time Taken Comments Blood Pressure 139/69 06/09/2019 10:09 AM EST Pulse 87 06/09/2019 10:09 AM EST Temperature 36.8 ??C (98.2 ??F) 06/09/2019 10:09 AM EST Respiratory Rate - - Oxygen Saturation 97% 06/09/2019 10:09 AM EST Inhaled Oxygen Concentration - - Weight - - Height - - Body Mass Index - - documented in this encounter Progress Notes Clara Sheriff MD - 06/09/2019 10:00 AM EST ID Outpatient Follow Up - Nontuberculous Mycobacterial (NTM) Infection Identification: Chronic cough, recurrent MAC infection Relevant history: Mandy Foreman is a 73 y.o. female previous smoker (quit 1984), with a history of recurrent respiratory infections, bronchiectasis, and ROSY, who had MAC identified through 02/11/2007 bronch and underwent treatment MAC [id number] with guidelines-based triple antibiotics. She does visit [place] in the winter and has symptoms of [...] obstruction to FEV1 72%. Her clinician in [place] left so she transferred care here on 04/14/2019. We set her up for intensified airway clearance and Aricayse which she started 04/29. Interval She used pretreatment albuterol as prescribed and did well with the Aricayse for one week. 05/06 shedeveloped shortness of breath and presented to urgent care where she was advised to hold Arikayce. Because of prominent wheeze, she was started on prednisone 50 mg daily x 5 days, but 05/11 she developed chest pain and non productive cough so went to the ED and had cardiac etiology ruled out. She was seen in urgent consultation with ID, and advised to stop Aricayse on 05/13. Since stopping, it took 2 weeks to recover to baseline. She has a cold now, but is not having fever,new SOB or such. She is here mostly to plan the next step in her care. Physical Exam BP 139/69 Pulse 87 Temp 36.8 ??C (98.2 ??F) SpO2 97% General - wearing mask because of her cold, no coughing. Not examined. Lab Results Component Value Date WBC 7.5 [...] she has not tolerated. Today we discussed other medications that might be needed to intensify such as clofazimine. We reviewed that clofazimine (Lamprene) is a drug that since 1968 has been approved worldwide to treat multidrug resistant tuberculosis and Hanse n's Disease (leprosy) and had never been FDA-approved in the [place]. Clofazimine has been now appreciated as a useful adjunct for treatment of certain NTM such as Mycobacterium avium and abscessus. Clofazimine is only available through an IND, for which I applied as PI and [facility] is [employer]- and IRB-approved since early 2018 ([id number]). [facility] was given site number [id number]. Each candidate patient undergoes a simple approval process through a [employer] application. Regarding this patient's eligibility: ??? She is suffering from NTM infection (pulmonary) as documented ??? Does not have comparable or satisfactory alternative treatment (e.g., relapsed, intolerant of Aricayse) ??? Is not eligible for participation in any of the [facility]'s ongoing clinical trials ??? Potential benefits outweigh potential harm ??? Is adult 18 years or older ??? Willing to sign informed consent ??? No known HIV infection ??? Not of child-bearing potential or lactating ??? No known hypersensitivity to clofazimine ? ? No significant ECG abnormalities (e.g., QTc >500ms) or other cardiac exclusionary history (e.g., Torsades de Pointes, CHF, hypokalemia) ? ? Life expectancy anticipated >6 months If application is approved by [employer], in collaboration with [facility], we then employment counselor patients regarding potential side effects, particularly discoloration of skin, gastrointestinal side effects (nausea, vomiting, obstruction), headache and QTc prolongation (which has been increased in patients also taking bedaquiline). It can cause defects and cannot be used in womenor in male partners of fertile women or for HIV-infected patients with disseminated MAC. The patientand I reviewed the consent form together, and there was ample opportunity to ask additional questions. The patient has not yet signed the consent, but I provided her a copy so she can review. I anticipate we will start dosing at the usual dose of 100mg po QD, and monitor QTc (baseline and then monthly), LFTs (monthly), and one a monthly basis for any symptoms suggestive of typical side effects such as skin discoloration, gastrointestinal discomfort, headache and myalgias. Recommendations: ?? Continue current weight based NTM therapy: ?? Azithromycin 250mg qd ?? Ethambutol 15mg/kg qd: 855 mg ?? Rifampin 600mg qd ?? For treatment safety ?? CBC, CMP at baseline and q1-3m ?? 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 Self monitoring to include using labeled red/green cards for distinguishing color, loss of peripheral vision and any blurry vision ?? Because macrolides can increase QTc, we will check an ECG (normal 460 for females) ?? Not tolerant of Aricayse ?? Considering addition of clofazimine. We will check a repeat CT and repeat AFB to help encourage her decision to intensify. ?? RTC 1 month ?? Will call if develops new symptoms or has questions. ?? Note to ALEXANDRE Holcomb; Murphy Rivas MD Section of Infectious Disease and International Health [email or web address] [phone] minutes were spent in this [id number] encounter, during which 25 minutes was spent counseling about NTM infection, treatment, medication side effects and prognosis. All of the patient's questions were answered. documented in this encounter Miscellaneous Notes Addendum Note - Estelle Ponce - 06/09/2019 10:00 AM EST Addended by: ESTELLE PONCE on: 06/11/2019 02:54 PM Modules accepted: Orders documented in this encounter Plan of Treatment Upcoming Encounters Date Type Specialty Care Team Description 02/24/2023 Hospital Encounter Gastroenterology Cristofer Armando MD [facility] GASTROENTEROLOGY [place], [place] [address] (Wo rk) Scheduled Procedures Name Priority Associated Diagnoses Date/Time COLONOSCOPY, DIAGNOSTIC H/O DIVERTICULITIS 10 DIALLO RVEILLANCE documented as of this encounter Procedures Procedure Name Priority Date/Time Associated Comments Diagnosis HC MYCOBACTERIA Routine 06/10/2019 11:00 Medication Results for this CULTURE PM EST monitoring procedure are i n encounter the [...] please contact e number below. ? Narrative 06/16/2019 1:24 PM EST EXAMINATION: CT [...] this report, please contact e number below. Clara Sheriff MD IMG CT ORDERABLES AFB culture Sputum Expectorated (06/10/2019 11:00 PM EST) [facility] Method Time Signature Acid Fast No Acid Fast Bacilli isolated SUNDEEP Bacilli If active tuberculosis is suspected, the patient should be on AIRBORNE MALISSA Culture PRECAUTIONS. [facility] Infection Prevention for assistance if needed. HOSPITAL LABOR[facility]ORY Acid Fast No Acid Fast SUNDEEP Stain Bacilli seen [facility] Specimen Anatomical Collection Method Collection Time Receive d Time (Source) Location / / Volume Laterality Sputum specimen 06/10/2019 11:00 06/11/20 19 2:54 (specimen) PM EST PM EST Resulting Agency Comment Spec In Lab Clara Sheriff MD MICROBIOLOGY - GENERAL ORDER DARA Performing Organization Address City/State/[place] [address] documented in this encounter Visit Diagnoses Diagnosis Mycobacterium avium infection Pulmonary diseases due to other mycobact eria Medication monitoring encounter Encounter for therapeutic drug monitorin g Mycobacterium avium infection Pulmonary diseases due to other mycobact eria documented in this encounter Care Teams Supercalender Operator Relationship Specialty Start Date End Date Tony Fuller PA PCP - General 09/29/13 03/01/20 [address] [place] [address] documented as of this encounter
--- OUTSIDE RECORDS SUMMARY | 2022-02-08 09:08 | XMS_ITS | Encounter Summary ---
:1945 Author Organization [facility] [place] [address] Care Team Providers Name Role Phone Maeve Birch MD Primary Care Provider Reason for Referral Occupational Therapy (Routine) - Closed Specialty Diagnoses / Procedures Referred By Contact Refer red To Contact Occupational Therapy Diagnoses CMC arthritis Rubens Buckley PA [facility] [place] [address] [place] [address] Phone: Fax: Referral ID Status Reason Start Date Expiration Date Visits V isits Requested Authorized [id number] Closed Evaluate and 08/18/2013 02/14/2014 1 1 Treat Reason for Visit Reason Comments Thumb Pain Right Side Fell in September 201 3 Encounter Details Date Type Department Care Team Description 08/18/2013 Office Visit Orthopaedics at [facility] Rubens Buckley CMC arthritis (Primary Dx); [facility]ANDRE Nodule of finger, [place] [address] CENTER [phone] ORTHOPAEDIC SURGERY [place], [place] [address] Social History Tobacco Use Types Packs/Day Years Used Date Former Smoker Smokeless Tobacco: Never Used Alcohol Use Standard Drinks/Week Comments Yes 1.7 (1 standard drink = 0.6 oz pure alco hol) Sex Assigned at Date Recorded Not on file documented as of this encounter Last Filed Vital Signs Vital Sign Reading Time Taken Comments Blood Pressure 109/68 08/18/2013 8:47 AM EST Pulse 63 08/18/2013 8:47 AM EST Temperature - - Respiratory Rate - - Oxygen Saturation - - Inhaled Oxygen Concentration - - Weight 63.5 kg (140 lb) 08/18/2013 8:47 AM EST Height 154.9 cm (5' 1) 08/18/2013 8:47 AM EST Body Mass Index 26.45 08/18/2013 8:47 AM EST documented in this encounter Progress Notes Rubens Buckley PA - 08/18/2013 9:32 AM EST Mandy is a very pleasant 67-year-old 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. She presents for evaluation of right thumb pain times at least one year. She had an injury, caught the pole of her ski pole under her right thumb approximately one year ago. She was evaluated for this by her primary care provider, and she saw Dr. Carey in [place], [place] for this. He did not think that this was a skier's thumb and thought it more likely were related to first CMC arthritis. He gave her a splint that did prevent her from using the thumb, but she continues to have some discomfort. She denies snapping, locking, or triggering. She denies paresthesias. She does have awakening from sleep with her discomfort. She has a fairly constant pain, 5-9/10 depending on activity and worse with firm grasp or computer help desk representative. She has not had any injection. She has not done any therapy. She describes the splint that Dr. Carey gave her as a soft splint consistent with the first CMC glove splint. She had not had x-rays prior to today. These were done this morning. She takes the occasional aspirin or Advil. She is unable to take Aleve secondary to facial swelling (she has experienced this on 2 separate episodes) and had the same result each time. She does have a family history of rheumatoid arthritis in her mother that made herself evident when her mother was in her 70s. She denies a history of gout. She also has a nodule to her right long finger and her left ring finger. She is followed for her primary care by Tara Larson PA-C of the [facility] in [place], [place]. Her concerns are the nature of her thumb pain and her treatment options, as well as consideration for evaluation of these finger nodules described above. Chief Complaint Patient presents with ??? Thumb Pain Right Side Fell in September 2012 Carpal Tunnel/Trigger Digit Grid given: n/a This problem does interfere/but does not prevent ADL's . (Dressing, Eating, Ambulating, Toileting and Hygiene) or IADL's (Shopping, Housekeeping, Accounting, Food preparation and Transportation) Current Outpatient Prescriptions on File Prior to Visit Medication Sig Dispense Refill ??? propranolol (INDERAL) 40 mg tablet Take 40 mg by mouth 3 times daily. Indications: Migraine Prevention ??? aspirin 81 mg chewable tablet Take 81 mg by mouth daily. ??? cyanocobalamin, vitamin B-12, 100 mcg tablet Take 100 mcg by mouth daily. ??? [DISCONTINUED] tretinoin (RETIN-A) 0.05 % cream Apply topically nightly. 20 g 3 ??? [DISCONTINUED] escitalopram (LEXAPRO) 10 mg tablet Take 10 mg by mouth daily. ??? [DISCONTINUED] traZODone (DESYREL) 100 mg tablet Take 100 mg by mouth nightly. Allergies Allergen Reactions ??? Naproxen Sodium Other (See Comments) facial swelling ??? Oxycodone Hcl Nausea And Vomiting ??? Pentazocine-Naloxone Other (See Comments) rapid HR ??? Propoxyphene Hcl Other (See Comments) facial swelling Patient Active Problem List Diagnosis Code ??? Persistent headaches 784.0 ??? Rosacea 695.3 ??? Telangiectasia 448.9 ??? Seborrheic keratosis 702.19 ??? Inflamed seborrheic keratosis 702.11 ??? CMC arthritis 716.94 ??? Nodule of finger - right long and left ring 782.2 Past Surgical History Procedure Date ??? Colonoscopy, diagnostic 02/24/2013 COLONOSCOPY, DIAGNOSTIC performed by Tejinder Armando MD at [facility] ENDOSCOPY History Social History ??? Marital Status: Spouse Name: N/A Number of Children: N/A ??? Years of Education: N/A Occupational History ??? Not on file. Social History Main Topics ??? Smoking status: Former Smoker ??? Smokeless tobacco: Never Used ??? Alcohol Use: 1.0 oz/week 2 drink(s) per week ??? Drug Use: No ??? Sexually Active: Not on file Other Topics Concern ??? Not on file Social History Narrative ??? No narrative on file No family history on file. Denies fever, chills, nausea, vomiting, vision change, shortness of breath, chest pain, vision changes, headaches, bowel or bladder problem, ear, nose, sinus problem, neuro or psychiatric, or endocrinedisorder not addressed above. Filed Vitals: 08/18/13 0847 BP: 109/68 Pulse: 63 Mandy Foreman is awake, alert, oriented x 3, in no acute distress, afebrile and hemodynamically stable. Affect and demeanor are appropriate for today's visit. HEENT - normocephalic, atraumatic, sclera clear, nose patent and throat clear. c-spine with good andfull ROM PHYSICAL EXAMINATION: Mandy's bilateral forearms, wrists, and hands are benign in appearance without overlying erythema, edema, ecchymosis, bogginess, fluctuance, drainage, or breaking in skin. FDS, FDP, EPL, and FPL are intact. Capillary refill is less than two seconds. Pulses 2+. Pinch and computer help desk representative are 4+/5. There is no obvious deformity or ulnar drift noted. She does have some swelling of the DIP joints of her bilateral hands with slight subluxation deformity at the DIP joint of the right small finger. Of note, she does have a nodule on the right flexor sheath of the long finger, approximately 2 mm x 1 mm, just proximal to the PIP flexion crease. There is a similar nodule on the left hand; however, this is just distal to the flexion crease of the PIP joint on the ring finger. Otherwise, they do not interfere with her activities. Regarding her thumbs, no snapping, locking, or triggering. She does have slightly positive circumduction bilaterally, but right greater than left as well as slightly positive grind given right greater than left. She does have tenderness to palpation over the first CMC joint, but no venkatesh crepitance. IMAGING: Her imaging studies show first CMC osteoarthritis of the right hand with some thinning at the DIP joints of the right hand as well. There is no obvious bony abnormality. There is no obvious joint destruction or thinning. ASSESSMENT: 1. Right first carpometacarpal joint osteoarthritis. 2. Flexor sheath nodules at the left ring and right long finger. PLAN: Treatment options are discussed from least to most invasive to include splinting, anti-inflammatories, home treatments, deep heating creams, cortisone injections, and possible surgery. I think she would likely do well with conservative measures to include Motrin, which she does tolerate well; the occasional aspirin, which again she does tolerate well (THE PATIENT HAS A HISTORY OF ALLERGY TO ALEVE). We will also give her hard and soft splints made by our hand therapist who is in clinic today and see her back in approximately six weeks. Our therapist will go over home treatments to include topicals as well as possibly paraffin and heat. She understands and agrees. She understands the nature of her diagnosis. We will plan on seeing her back in approximately six weeks. If her symptoms are improved, then we will continue. However, if she has continued pain or worsening pain, then we would be inclined to discuss further treatments. Her questions were otherwise solicited and answered. documented in this encounter Plan of Treatment Upcoming Encounters Date Type Specialty Care Team Description 02/24/2023 Hospital Encounter Gastroenterology Cristofer Armando MD [facility] DR GASTROENTEROLOGY [place], [place] [address] (Wo rk) Scheduled Procedures Name Priority Associated Diagnoses Date/Time COLONOSCOPY, DIAGNOSTIC H/O DIVERTICULITIS 10 DIALLO RVEILLANCE Scheduled Referrals Name Type Priority Associated Order Schedule Diagnoses Referral to Outpatient Referral Routine CMC arthritis Ordered : Occupational Therapy 014 documented as of this encounter Visit Diagnoses Diagnosis CMC arthritis - Primary Unspecified arthropathy, hand Nodule of finger, bilateral documented in this encounter Care Teams Handhole Machine Operator Relationship Specialty Start Date End Date Maeve Birch MD PCP - General 08/18/13 09/28/13 [address] [place] [address] documented as of this encounter
--- OUTSIDE RECORDS SUMMARY | 2022-02-08 09:08 | XMS_ITS | Encounter Summary ---
:1945 Author Organization [facility] [place] [address] Care Team Providers Name Role Phone Tony Fuller Primary Care Provider Reason for Visit Reason Onset Date Comments Medication Problem 04/17/2019 Encounter Details Date Type Department Care Team Description 04/17/2019 Telephone Pulmonology at [facility] Rose Medication Problem [facility] [place] [address] RN [phone] Social History Tobacco Use Types Packs/Day Years Used Date Former Smoker Quit: 09/29/18 85 Smokeless Tobacco: Never Used Alcohol Use Standard Drinks/Week Comments Yes 1.7 (1 standard drink = 0.6 oz pure alco hol) Sex Assigned at Date Recorded Not on file documented as of this encounter Miscellaneous Notes Telephone Encounter - Sue Rose RN - 04/20/2019 1:33 PM EDT Called and updated pharmacy of patient's need for shipment of albuterol. Pharmacy to reach out to patient. Telephone Encounter - Sue Rose RN - 04/17/2019 5:31 PM EDT Patient called, seeking therapeutic support staff to call to [facility], so that they could ship her albuterol medication to her, as she does not go to store. Called, and pharmacy closed. documented in this encounter Plan of Treatment Upcoming Encounters Date Type Specialty Care Team Description 02/24/2023 Hospital Encounter Gastroenterology Cristofer Armando MD [facility] DR GASTROENTEROLOGY [place], [place] [address] (Wo rk) Scheduled Procedures Name Priority Associated Diagnoses Date/Time COLONOSCOPY, DIAGNOSTIC H/O DIVERTICULITIS 10 DIALLO RVEILLANCE documented as of this encounter Visit Diagnoses Not on filedocumented in this encounter Care Teams Gymnasium Teacher Relationship Specialty Start Date End Date Tony Fuller PA PCP - General 09/29/13 03/01/20 [address] [place] [address] documented as of this encounter
--- OUTSIDE RECORDS SUMMARY | 2022-02-08 09:08 | XMS_ITS | Encounter Summary ---
:1945 Author Organization [facility] [place] [address] Care Team Providers Name Role Phone Tony Fuller Primary Care Provider Encounter Details Date Type Department Care Team Description 06/10/2019 Hospital [place] [address] Social History Tobacco Use Types Packs/Day [...] Gastroenterology Cristofer Armando MD [facility] DR GASTROENTEROLOGY [place], [place] [address] (Wo rk) Scheduled Procedures Name Priority Associated Diagnoses Date/Time COLONOSCOPY, DIAGNOSTIC H/O DIVERTICULITIS 10 DIALLO RVEILLANCE documented as of this encounter Visit Diagnoses Not on filedocumented in this encounter Care Teams Fitness Coordinator Relationship Specialty Start Date End Date Tony Fuller PA PCP - General 09/29/13 03/01/20 [address] [place] [address] documented as of this encounter
--- OUTSIDE RECORDS SUMMARY | 2022-02-08 09:08 | XMS_ITS | Encounter Summary ---
:1945 Author Organization [facility] [place] [address] Care Team Providers Name Role Phone Tony Fuller Primary Care Provider Encounter Details Date Type Department Care Team Description 03/18/2019 Orders Only Orthopaedics at [facility] Saran Cuenca, Pain of right thumb [facility] [place] [address] [facility] [phone] ORTHOPAEDIC SURGERY [place], [place] [address] Social History Tobacco Use Types [...] Encounter Gastroenterology Cristofer Armando MD [facility] ER GASTROENTEROLOGY [place], [place] [address] (Wo rk) Scheduled Procedures Name Priority Associated Diagnoses Date/Time COLONOSCOPY, DIAGNOSTIC H/O DIVERTICULITIS 10 DIALLO RVEILLANCE documented as of this encounter Results XR Fingers Min 2 views Right (Generic) (07/22/2019 9:24 AM EST) Anatomical Region Laterality Modality Hand Right Digital Radiography Specimen (Source) Anatomical Location Collection Method / Collectio n Time Received Time / Laterality Volume Impressions 07/22/2019 11:18 AM EST Osteoarthritis of the first carpometacarpal joint. Thank you for letting us participate in the care of this patient. For questions regarding this report, please contact e number below. ? Narrative 07/22/2019 11:18 AM EST EXAMINATION: XR FINGERS MIN 2 VIEWS RIGHT (GENERIC) CLINICAL HISTORY: right thumb pain right thumb views needed TECHNIQUE: 3 views RIGHT finger COMPARISON: None FINDINGS: At the first carpometacarpal joint the p resence of joint space narrowing, osteophyte formation subchondral scleros is and subluxation is all typical of osteoarthritis. I do not see acute super imposed injury. Less pronounced degenerative arthropathy is present at t he metacarpal phalangeal joint and the interphalangeal joint. Procedure Note Brett Castellano MD - 07/22/2019Forma tting of this note might be different from the original. EXAMINATION: XR FINGERS MIN 2 VIEWS RIGH T (GENERIC) CLINICAL HISTORY: right thumb pain right thumb views needed TECHNIQUE: 3 views RIGHT finger COMPARISON: None FINDINGS: At the first carpometacarpal joint the p resence of joint space narrowing, osteophyte formation subchondral scleros is and subluxation is all typical of osteoarthritis. I do not see acute super imposed injury. Less pronounced degenerative arthropathy is present at t he metacarpal phalangeal joint and the interphalangeal joint. IMPRESSION Osteoarthritis of the first carpometacar pal joint. Thank you for letting us participate in the care of this patient. For questions regarding this report, please contact e number below. Electronically signed by: Brett c[facility]denas [facility] ([phone]), at 07/22/2019 11:18 AM Saran Cuenca MD IMG DX ORDERABLES documented in this encounter Visit Diagnoses Diagnosis Pain of right thumb Pain in limb Pain of right thumb Pain in limb documented in this encounter Care Teams Roastmaster Relationship Specialty Start Date End Date Tony Fuller PA PCP - General 09/29/13 03/01/20 [address] [place] [address] documented as of this encounter
--- OUTSIDE RECORDS SUMMARY | 2022-02-08 09:08 | XMS_ITS | Encounter Summary ---
:1945 Author Organization [facility] [place] [address] Care Team Providers Name Role Phone Nakita Pruitt MD Primary Care Provider Encounter Details Date Type Department Care Team Description 08/04/2013 Telephone Orthopaedics at [facility] [place] [address] Social History Tobacco Use Types Packs/Day Years Used Date Former Smoker Alcohol Use Standard Drinks/Week Comments Yes 1.7 (1 standard drink = 0.6 oz pure alco hol) Sex Assigned at Date Recorded Not on file documented as of this encounter Miscellaneous Notes Telephone Encounter - Charis Dobson - 08/04/2013 4:19 PM EST Ask patient to verify the following:COMPLETE Full name: Mandy Foreman : 1945 Phone number: [phone] (home) Mailing address: [address] [address] Intake: RT THUMB PAIN Is this an injury that happened:NO ?? At work? ?? Playing a sport? ?? If yes to either, what is DOI? Tell me how this how long you've had these symptoms? 1 YEAR Has anyone ever seen you before for this issue? NO Have you tried: NO ?? Physical Therapy ?? INJECTION ?? Other therapies Have you had any of the following studies for this issue? NO ?? X-Ray ?? MRI ?? CT Scan ?? LABS Have you seen an Orthopaedic surgeon for the this issue? NO If YES: Who did you see? Where were you seen (facility)? When? Phone # Fax# Have you ever had surgery for this issue? NO If YES and different than above: Who performed surgery? Where did you have the surgery (facility)? When? Phone # Fax# If patient is implanted with hardware fixation or joint prosthesis retrieve OPERATIVE REPORT and IMPLANT STICKERS. documented in this encounter Plan of Treatment Upcoming Encounters Date Type Specialty Care Team Description 02/24/2023 Hospital Encounter Gastroenterology Cristofer Armando MD [facility] DR GASTROENTEROLOGY [place], [place] [address] (Wo rk) Scheduled Procedures Name Priority Associated Diagnoses Date/Time COLONOSCOPY, DIAGNOSTIC H/O DIVERTICULITIS 10 DIALLO RVEILLANCE documented as of this encounter Visit Diagnoses Not on filedocumented in this encounter Care Teams Cartridge Loading Operator Relationship Specialty Start Date End Date Nakita Pruitt MD PCP - General 06/06/10 08/17/13 [facility] [address] [place] [address] [place] [address] documented as of this encounter
--- OUTSIDE RECORDS SUMMARY | 2022-02-08 09:08 | XMS_ITS | Encounter Summary ---
:1945 Author Organization [facility] [place] [address] Care Team Providers Name Role Phone Tony Fuller Primary Care Provider Encounter Details Date Type Department Care Team Description 05/12/2019 Orders Only Infectious Disease at Kirill white MD SOB (shortness of [facility] breath) [facility] DR Price INFECTIOUS [place] [address] [place] [address] [phone] Social History Tobacco Use Types Packs/Day Years [...] Hospital Encounter Gastroenterology Cristofer Armando MD [facility] ER GASTROENTEROLOGY [place], [place] [address] (Wo rk) Scheduled Procedures Name Priority Associated Diagnoses Date/Time COLONOSCOPY, DIAGNOSTIC H/O DIVERTICULITIS 10 DIALLO RVEILLANCE documented as of this encounter Results XR Chest PA & [...] original. EXAMINATION: XR CHEST PA AND LATERAL (GE NERIC) CLINICAL HISTORY: Shortness of breath TECHNIQUE: Standing [...] contact e number below. Electronically signed by: Uriel [facility] ([phone]), at 05/13/2019 11:04 AM Rahul Gonzales MD IMG DX ORDERABLES documented in this encounter Visit Diagnoses Diagnosis SOB (shortness of breath) Shortness of breath SOB (shortness of breath) Shortness of breath documented in this encounter Care Teams Product Transfer Pumper Relationship Specialty Start Date End Date Tony Fuller PA PCP - General 09/29/13 03/01/20 [address] [place] [address] documented as of this encounter
--- OUTSIDE RECORDS SUMMARY | 2022-02-08 09:08 | XMS_ITS | Encounter Summary ---
:1945 Author Organization [facility] [place] [address] Care Team Providers Name Role Phone Tony Fuller Primary Care Provider Reason for Visit Consultation (Routine) - Closed Specialty Diagnoses / Procedures Referred By Contact Refer red To Contact Orthopaedics Diagnoses Right thumb pain Self Saran Cuenca MD mail [facility] ORTHOPAEDIC SURG [place], [place] [address] Phone: Fax: Referral ID Status Reason Start Date Expiration Date Visits V isits Requested Authorized [id number] Closed Consult, 10/27/2018 10/27/2019 1 1 Test & Treat Encounter Details Date Type Department Care Team Description 07/22/2019 Hospital Encounter [facility]Ray at [facility] Saran Cuenca Pain of right thumb [address] [place] [address] Dr Mal MD [facility] [address] [place] [phone] [place] [address] Social History Tobacco Use Types Packs/Day Years [...] mg 3 times daily as Tablet needed. dilTIAZem (CARDIZEM) Take 1 tablet by mouth 60 tablet 0 08/02/2019 30 mg Tablet 2 times daily for 60 doses. azithromycin Take 1 tablet by mouth 30 tablet 5 07/03/2019 08/03/2019 (ZITHROMAX) 250 mg daily. Tablet ARIKAYCE 590 mg/8.4 mL On hold right [...] Encounter Gastroenterology Cristofer Armando MD [facility] DR GASTROENTEROLOGY [place], [place] [address] (Wo rk) Scheduled Procedures Name Priority Associated Diagnoses Date/Time COLONOSCOPY, DIAGNOSTIC H/O DIVERTICULITIS 10 DIALLO RVEILLANCE documented as of this encounter Procedures Procedure Name Priority Date/Time Associated Diagnosis Comme nts XR FINGER(S) MIN 2 Routine 07/22/2019 9:24 AM Pain of right th umb Results for this VIEWS RIGHT EST procedure are i n the results section. documented in this encounter Results XR Fingers Min 2 [...] For questions regarding this report, please contact [facility] number below. Electronically signed by: Brett cárdenas [facility] ([phone]), at 07/22/2019 11:18 AM Saran Cuenca MD IMG DX ORDERABLES documented in this encounter Visit Diagnoses Diagnosis Pain of right thumb Pain in limb documented in this encounter Care Teams Quality Control Manager Relationship Specialty Start Date End Date Tony Fuller PA PCP - General 09/29/13 03/01/20 [address] [place] [address] documented as of this encounter
--- OUTSIDE RECORDS SUMMARY | 2022-02-08 09:08 | XMS_ITS | Encounter Summary ---
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 Encounter Details Date Type Department Care Team Description 04/22/2019 Orders Only Infectious Disease at Dante Middleton Me dication monitoring [facility] [place] [address] Social History Tobacco Use Types Packs/Day Years Used Date Former Smoker Quit: 09/29/18 85 Smokeless Tobacco: Never Used Alcohol Use Standard Drinks/Week Comments Yes 1.7 (1 standard drink = 0.6 oz pure alco hol) Sex Assigned at Date Recorded Not on file documented as of this encounter Progress Notes Dante Middleton RN - 04/22/2019 9:39 AM EDT Patient reports will be traveling to [place] From 05/30/2019-. Discussed with patient, that it is okay to take a drug holiday from Arikayce nebulizer at that time. This was reviewed by Dr. Sheriff as well. Per patient and [facility] Coordinator, will start and have in-home training for Arikayce nebulizer treatment on Saturday04/29/2019. Dante Middleton RN - 04/22/2019 9:39 AM EDT Patient is on antibiotic regime that includes medication Ethambutol. Discussed with Dr. Sheriff. Fromoffice visit note 04/14/2019: ?? 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 Self monitoring to include using labeled red/green cards for distinguishing color, loss of peripheral vision and any blurry vision Per patient would like to have this done locally: Please send a referral to [facility] atthis fax number Attn: Shreya ??[phone]. ?? documented in this encounter Plan of Treatment Upcoming Encounters Date Type Specialty Care Team Description 02/24/2023 Hospital Encounter Gastroenterology Cristofer Armando MD [facility] GASTROENTEROLOGY [place], [place] [address] (Wo rk) Scheduled Procedures Name Priority Associated Diagnoses Date/Time COLONOSCOPY, DIAGNOSTIC H/O DIVERTICULITIS 10 DIALLO RVEILLANCE Scheduled Referrals Name Type Priority Associated Order Schedule Diagnoses Referral to Outpatient Referral Routine Medication Ordered: Ophthalmology monitoring 04/22/2019 encounter documented as of this encounter Visit Diagnoses Diagnosis Medication monitoring encounter Encounter for therapeutic drug monitorin g documented in this encounter Care Teams Obgyn Hospitalist Physician Relationship Specialty Start Date End Date Tony Fuller PA PCP - General 09/29/13 03/01/20 [address] [place] [address] documented as of this encounter
--- OUTSIDE RECORDS SUMMARY | 2022-02-08 09:08 | XMS_ITS | Encounter Summary ---
:1945 Author Organization [facility] [place] [address] Care Team Providers Name Role Phone Tony Fuller Primary Care Provider Reason for Visit Reason Comments Thumb Pain R thumb pain Encounter Details Date Type Department Care Team Description 09/29/2013 Office Visit Orthopaedics at [facility] Rubens Buckley, Nodule of finger, bilateral; [facility] [place] [address] CENTER [phone] ORTHOPAEDIC SURGERY [place] [address] Social History Tobacco Use Types Packs/Day Years Used Date Former Smoker Quit: 09/29/18 85 Smokeless Tobacco: Never Used Alcohol Use Standard Drinks/Week Comments Yes 1.7 (1 standard drink = 0.6 oz pure alco hol) Sex Assigned at Date Recorded Not on file documented as of this encounter Last Filed Vital Signs Vital Sign Reading Time Taken Comments Blood Pressure 117/57 09/29/2013 11:12 AM EDT Pulse 67 09/29/2013 11:12 AM EDT Temperature - - Respiratory Rate - - Oxygen Saturation - - Inhaled Oxygen Concentration - - Weight 63.5 kg (140 lb) 09/29/2013 11:12 AM EDT Height 154.9 cm (5' 1) 09/29/2013 11:12 AM EDT Body Mass Index 26.45 09/29/2013 11:12 AM EDT documented in this encounter Progress Notes Rubens Buckley PA - 09/29/2013 11:43 AM EDT Mandy returns for followup of her bilateral palmar nodules flexor surface tendon sheath, specifically in the long finger and ring finger. They have not changed and when while they do occasionally cause discomfort she does not feel need to address these at this point. She denies any drainage or further problem with these. 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 She is otherwise doing well. She does not feel that she needs to explore any invasive procedure such as cortisone injection or even a surgery at this point. However, I did explain that in regards to her nodules on the flexor tendons of her affected fingers that if those change or become bothersome I think that it would be reasonable to have those evaluated by Dr. Cuenca. I do think that they are likely benign, but if they are becoming more uncomfortable or increased in size that she should have these addressed. She understands and agrees. At this point, we will coordinate a splint adjustment visit today with our therapist and see her in followup on an as-needed basis. Her questions are otherwise solicited and answered. documented in this encounter Plan of Treatment Upcoming Encounters Date Type Specialty Care Team Description 02/24/2023 Hospital Encounter Gastroenterology Cristofer Armando MD [facility] DR GASTROENTEROLOGY [place], [place] [address] (Wo rk) Scheduled Procedures Name Priority Associated Diagnoses Date/Time COLONOSCOPY, DIAGNOSTIC H/O DIVERTICULITIS 10 DIALLO RVEILLANCE documented as of this encounter Visit Diagnoses Diagnosis Nodule of finger, bilateral CMC arthritis Unspecified arthropathy, hand documented in this encounter Care Teams Shirt Sewer Relationship Specialty Start Date End Date Tony Fuller PA PCP - General 09/29/13 03/01/20 [address] [place] [address] documented as of this encounter
--- OUTSIDE RECORDS SUMMARY | 2022-02-08 09:08 | XMS_ITS | Encounter Summary ---
:1945 [place] [address] Care Team Providers Name Role Phone Maeve Birch MD Primary Care Provider Encounter Details Date Type Department Care Team Description 08/18/2013 Office Visit Dermatology at [facility] Kendra Mendez MD (Primary Dx) [address] [place] [address] [facility] [place], [place] [address] Social History Tobacco Use Types Packs/Day Years Used Date Former Smoker Smokeless Tobacco: Never Used Alcohol Use Standard Drinks/Week Comments Yes 1.7 (1 standard drink = 0.6 oz pure alco hol) Sex Assigned at Date Recorded Not on file documented as of this encounter Progress Notes Arcenio Varela MD - 08/20/2013 3:04 PM EST Duplicate. Error. documented in this encounter Miscellaneous Notes Miscellaneous - Provider, Jameel - 09/01/2013 1:31 PM EST Miscellaneous - Provider, Scanning - 09/01/2013 1:19 PM EST documented in this encounter Plan of Treatment Upcoming Encounters Date Type Specialty Care Team Description 02/24/2023 Hospital Encounter Gastroenterology Cristofer Armando MD [facility] DR GASTROENTEROLOGY [place], [place] [address] (Wo rk) Scheduled Procedures Name Priority Associated Diagnoses Date/Time COLONOSCOPY, DIAGNOSTIC H/O DIVERTICULITIS 10 DIALLO RVEILLANCE documented as of this encounter Visit Diagnoses Diagnosis Facial rhytids - Primary Other specified hypertrophic and atrophi c condition of skin documented in this encounter Care Teams Tdp Displays Analyst Relationship Specialty Start Date End Date Maeve Birch MD PCP - General 08/18/13 09/28/13 [address] [place] [address] documented as of this encounter
--- OUTSIDE RECORDS SUMMARY | 2022-02-08 09:08 | XMS_ITS | Encounter Summary ---
:1945 Author Organization [facility] [place] [address] Care Team Providers Name Role Phone Tony Fuller Primary Care Provider Encounter Details Date Type Department Care Team Description 07/02/2019 Notes Only Infectious Disease a t [facility] Clara Sheriff MD [facility] [place] [address] INFECTIOUS DISEASE [phone] [place], [place] [address] (Wo rk) Social History Tobacco Use Types Packs/Day Years Used Date Former Smoker Quit: 09/29/18 85 Smokeless Tobacco: Never Used Alcohol Use Standard Drinks/Week Comments Yes 1.7 (1 standard drink = 0.6 oz pure alco hol) Sex Assigned at Date Recorded Not on file documented as of this encounter Progress Notes Clara Sheriff MD - 07/02/2019 10:47 AM EST Infectious Diseases and International Health Section Note Identification: 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 Issue: She carries a history of PSVT with clarithromycin (for which I do not have documentation). She is currently on [id number]-wdjcuinwgs-lwnvfgjd, and experienced a sense of rapid heart rate that she documents (06/26/2019, patient message, encounters). She reports she stopped the azithro, becauseof said similar event with clarithro. She quickly recovered to normal rate. A 04/14/2019 EKG showed QTc 427, but she probably also has a more current because she reported to the ED prior to this apparent arrhythmia to rule out CO (again, I do not have these records). She reports she does not have a restaurant area manager. Recommendations: ?? She will try to get in urgenly with Dr. Villeda, a locally practicing restaurant area manager at [facility]. ?? I suggested she hold the azithro until we can see when we can understand this event better ?? Her use of macrolide may be critical for her chance of MAC cure. CC: AB, DK, DP Clara Sheriff MD Attending, Section of Infectious Disease and International Health [email or web address] Page [phone] documented in this encounter Plan of Treatment Upcoming Encounters Date Type Specialty Care Team Description 02/24/2023 Hospital Encounter Gastroenterology Cristofer Armando MD [facility] DR GASTROENTEROLOGY [place], [place] [address] (Wo rk) Scheduled Procedures Name Priority Associated Diagnoses Date/Time COLONOSCOPY, DIAGNOSTIC H/O DIVERTICULITIS 10 DIALLO RVEILLANCE documented as of this encounter Visit Diagnoses Not on filedocumented in this encounter Care Teams Admissions Nurse Relationship Specialty Start Date End Date Tony Fuller PA PCP - General 09/29/13 03/01/20 [address] [place] [address] documented as of this encounter
--- OUTSIDE RECORDS SUMMARY | 2022-02-08 09:08 | XMS_ITS | Encounter Summary ---
:1945 Author Organization [place] [address] Care Team Providers Name Role Phone Tony Fuller Primary Care Provider Encounter Details Date Type Department Care Team Description 07/20/2019 Notes Only Infectious Disease a t [facility] Clara Sheriff MD [facility] [place] [address] INFECTIOUS DISEASE [phone] [place], [place] [address] (Wo rk) Social History Tobacco Use Types Packs/Day Years Used Date Former Smoker Quit: 09/29/18 85 Smokeless Tobacco: Never Used Alcohol Use Standard Drinks/Week Comments Yes 1.7 (1 standard drink = 0.6 oz pure alco hol) Sex Assigned at Date Recorded Not on file documented as of this encounter Progress Notes Clara Sheriff MD - 07/20/2019 1:06 PM EST Infectious Diseases and International Health Section Note Identification: Patient is a 73 y.o. female with refractory MAC on triple daily therapy, complicatedby perceived tachycardia scheduled with cardiology, with ZIO patch. Issue: Calls because prescription refill for azithro was 250 qd but reports actually had been [id number] QOD. Recommendations: I am not sure how we did not have accurate record of her taking QOD regimn (which is odd since it is usually daily vs TIW, and in her case best daily since she has relapsed first therapy and failed to convert on second 2 years in). I tried to call to clarify but no answering machine. Reply through [facility] that she should take 250 qd and we will meet to review her regimen on Jul 28. CC: AB Clara Sheriff MD Attending, Section of Infectious Disease and International Health [email or web address] Page [phone] documented in this encounter Plan of Treatment Upcoming Encounters Date Type Specialty Care Team Description 02/24/2023 Hospital Encounter Gastroenterology Cristofer Armando MD [facility] GASTROENTEROLOGY [place], [place] [address] (Wo rk) Scheduled Procedures Name Priority Associated Diagnoses Date/Time COLONOSCOPY, DIAGNOSTIC H/O DIVERTICULITIS 10 DIALLO RVEILLANCE documented as of this encounter Visit Diagnoses Not on filedocumented in this encounter Care Teams Optician Manager Relationship Specialty Start Date End Date Tony Fuller PA PCP - General 09/29/13 03/01/20 [address] [place] [address] documented as of this encounter
--- OUTSIDE RECORDS SUMMARY | 2022-02-08 09:08 | XMS_ITS | Encounter Summary ---
:1945 Author Organization [facility] [place] [address] Care Team Providers Name Role Phone Nakita Pruitt MD Primary Care Provider Reason for Visit Reason Comments Skin Lesion Encounter Details Date Type Department Care Team Description 11/28/2012 Office Visit Dermatology Madi Deluca, Inflamed seborrheic [address] [facility] keratosis (Primary [address] Dx) [place], [place] DERMATOLOGY [address] [place] [address] [phone] (Wo rk) Social History Tobacco Use Types Packs/Day Years Used Date Former Smoker Alcohol Use Standard Drinks/Week Comments Not Asked 0 (1 standard drink = 0.6 oz pure alcoho l) Sex Assigned at Date Recorded Not on file documented as of this encounter Progress Notes Madi Deluca MD - 11/28/2012 3:12 PM EDT Problem: Left lower back lesion. Mandy follows up after last being seen in August. She has a new itchy lesion on her right lower back. Physical examination reveals a 1cm, inflamed, waxy, stuck-on appearing lesion consistent with a seborrheic keratosis, right lower back. Assessment and Plan: 1. Seborrheic keratosis, inflamed, right lower back. a. After obtaining informed consent, site was anesthetized and removed with shave biopsy. b. Base was lightly electrodesiccated. c. Triple antibiotic ointment and Band-Aid placed. d. Wound care instructions and supplies given. e. Recommend return to clinic p.r.n. for new lesions/concerns. Note: Discussed again sun avoidance precautions. Recommended Neutrogena sunscreen with Helioplex, SPF 30. COPY: Nakita Pruitt M.D. documented in this encounter Procedure Notes Provider, Scanning - 12/10/2012 5:53 PM EDTAssociated Order(s): SCAN DOC: SURGICAL PATHOLOGY documented in this encounter Miscellaneous Notes Miscellaneous - Provider, Scanning - 12/17/2012 1:31 PM EDT documented in this encounter Plan of Treatment Upcoming Encounters Date Type Specialty Care Team Description 02/24/2023 Hospital Encounter Gastroenterology Cristofer Armando MD [facility] DR GASTROENTEROLOGY [place], [place] [address] (Wo rk) Scheduled Procedures Name Priority Associated Diagnoses Date/Time COLONOSCOPY, DIAGNOSTIC H/O DIVERTICULITIS 10 DIALLO RVEILLANCE documented as of this encounter Procedures Procedure Name Priority Date/Time Associated Diagnosis Comme nts SURGICAL PATHOLOGY 12/10/2012 5:53 PM Res ults for this SCAN EDT procedure are i n the results section. documented in this encounter Results SCAN DOC: SURGICAL PATHOLOGY (12/10/2012 5:53 PM EDT) Narrative 12/10/2012 5:53 PM EDT Procedure Note Provider, Scanning - 12/10/2012 5:53 PM EDT Scanning Provider MEDIA MGR SCAN EXT ORDR/RSLT documented in this encounter Visit Diagnoses Diagnosis Inflamed seborrheic keratosis - Primary documented in this encounter Care Teams Senior Court Office Assistant Relationship Specialty Start Date End Date Nakita Pruitt MD PCP - General 06/06/10 08/17/13 HOSPITALIST SERVICES [address] [place] [address] [place] [address] documented as of this encounter
--- OUTSIDE RECORDS SUMMARY | 2022-02-08 09:08 | XMS_ITS | Encounter Summary ---
:1945 Author Organization [facility] Address [facility] [place] [address] Care Team Providers Name Role Phone Maeve Birch MD Primary Care Provider Encounter Details Date Type Department Care Team Description 08/18/2013 Hospital Encounter XRay at [facility] Right hand pain [address] [place] [address] [place] [address] Social History Tobacco Use Types Packs/Day Years Used Date Former Smoker Smokeless Tobacco: Never Used Alcohol Use Standard Drinks/Week Comments Yes 1.7 (1 standard drink = 0.6 oz pure alco hol) Sex Assigned at Date Recorded Not on file documented as of this encounter Medications at Time of Discharge Medication Sig Dispensed Refills Start Date End Date temazepam (RESTORIL) Take 7.5 mg by mouth 0 09/14/2020 15 mg capsule nightly as needed. tretinoin (RETIN-A) Apply topically 15 g 0 08/18/2013 06/24/2020 0.05 % nightly. Physician will creamIndications: not do prior Facial rhytids authorization propranolol (INDERAL) Take 80 mg by mouth 0 05/16/2019 40 mg daily. tabletIndications: migraine prevention aspirin 81 mg chewable Take 81 mg by mouth 0 09/29/2013 tablet daily. cyanocobalamin, Take 100 mcg by mouth 0 04/06/2020 vitamin B-12, 100 mcg daily. tablet documented as of this encounter Plan of Treatment Upcoming Encounters Date Type Specialty Care Team Description 02/24/2023 Hospital Encounter Gastroenterology Cristofer Armando MD [facility] DR GASTROENTEROLOGY [place], [place] [address] (Wo rk) Scheduled Procedures Name Priority Associated Diagnoses Date/Time COLONOSCOPY, DIAGNOSTIC H/O DIVERTICULITIS 10 DIALLO RVEILLANCE documented as of this encounter Procedures Procedure Name Priority Date/Time Associated Comments Diagnosis XR HAND DIAGNOSTIC Routine 08/18/2013 8:28 AM Right hand pain Results for this MINIMUM 3 VIEWS EST procedure ar e in the results section. documented in this encounter Results XR hand diagnostic minimum 3 views (08/18/2013 8:28 AM EST) Anatomical Region Laterality Modality Hand N/A Radiographic Imaging Specimen (Source) Anatomical Collection Method Collection Time Re ceived Time Location / / Volume Laterality 08/18/2013 8:28 AM EST Narrative 08/18/2013 9:42 AM EST Examination DIAG HAND MIN 3 VIEWS/RIGHT Clinical History RT THUMB PAIN Comparison None Technique 3 views of the right hand. Findings Mild joint space narrowing and productiv e changes of the 1st digit/thumb interphalangeal and metacarpophalangeal joints. ?? Along the 2nd through 5th digits, there is mild to moderate distal interphalangeal joint space narrowing an d productive changes, minimal to mild joint space narrowing at the proximal in terphalangeal joints and no metacarpophalangeal joint involvement, e xcept for mild joint space narrowing and sclerosis at the 5th MCP joint. In a ddition, mild flexion deformity at the 5th digit DIP joint. ?? There is also mild joint space narrowing , productive changes, and articular surface sclerosis at the level of the 1s t carpometacarpal (basal) joint of the wrist. ??Minimal triscaphe joint degener ative changes also appear present. No cystic or erosive changes are seen. ? ? Impression Osteoarthropathy, as above. Procedure Note Karley Busch MD - 08/18/2013Formatt ing of this note might be different from the original. Examination DIAG HAND MIN 3 VIEWS/RIGHT Clinical History RT THUMB PAIN Comparison None Technique 3 views of the right hand. Findings Mild joint space narrowing and productiv e changes of the 1st digit/thumb interphalangeal and metacarpophalangeal joints. Along the 2nd through 5th digits, there is mild to moderate distal interphalangeal joint space narrowing an d productive changes, minimal to mild joint space narrowing at the proximal in terphalangeal joints and no metacarpophalangeal joint involvement, e xcept for mild joint space narrowing and sclerosis at the 5th MCP joint. In a ddition, mild flexion deformity at the 5th digit DIP joint. There is also mild joint space narrowing , productive changes, and articular surface sclerosis at the level of the 1s t carpometacarpal (basal) joint of the wrist. Minimal triscaphe joint degenerat blanca changes also appear present. No cystic or erosive changes are seen. Impression Osteoarthropathy, as above. Saran Cuenca MD IMG DX ORDERABLES documented in this encounter Visit Diagnoses Diagnosis Right hand pain Pain in limb documented in this encounter Care Teams Ring Cutter Lathe Operator Relationship Specialty Start Date End Date Maeve Birch MD PCP - General 08/18/13 09/28/13 [address] [place] [address] documented as of this encounter
--- OUTSIDE RECORDS SUMMARY | 2022-02-08 09:08 | XMS_ITS | Encounter Summary ---
:1945 Author Organization [place] [address] Care Team Providers Name Role Phone Nakita Pruitt MD Primary Care Provider Encounter Details Date Type Department Care Team Description 02/24/2013 Surgery Gastroenterology at [facility] Tejinder Armando, COLONOSCOPY, [facility] Olya [place] [address] [facility] [phone] DR GASTROENTEROLOGY [place] [id number] Social History Tobacco Use Types Packs/Day Years [...] you need to be checked. Saturday-Saturday Clinic [phone] 8a-5p Same Day Endo [phone] 7a-8p Otherwise contact [phone] and ask to speak to the singing waiter or waitress fabrication operator Follow up care is a camara part of your treatment and safety. Be sure to make and go to all appointments, and call your doctor if you are having problems. Discharge instructions reviewed with patient who expresses understanding AttachmentsThe following attachments cannot be sent through Care Everywhere. COLON POLYPS: AFTER YOUR VISIT ([place]documented in this encounter Medications at Time of [...] 02/24/2023 Hospital Encounter Gastroenterology Cristofer Armando MD [facility] DR GASTROENTEROLOGY [place], [place] [address] (Wo rk) Scheduled Procedures Name [...] Surgical Pathology Report (02/24/2013 9:50 AM EDT) [facility] Method Time Signature Surgical CERNER Pathology ? [facility] Report ? Provider: ?? TEJINDER ARMANDO ?Pt. Name: ?? ABBE Johansen MANDY Giovanny ? Acc #: ?[id number] ?Pt. MRN: ?[id number] ? Col Date: ?? 3 ? /Sex: [...] Organization Address City/State/ZIP Code Phon e Number [facility], [facility] CERNER ETHANENNIUM Specimen to Pathology (surgical or derm) (02/24/2013 9:50 AM EDT) Specimen Anatomical Collection Method Collection Time Receive d Time (Source) Location / / Volume Laterality AP Specimen 02/24/2013 9:50 AM 3 9:50 EDT AM EDT Narrative CASTILLO LONGENNIUM - 02/24/2013 9:50 AM E DT Specimen requisition ordered. ??Separate Pathology report to follow Tejinder Armando MD PATHOLOGY/CYTOLOGY ORDERABLE S Performing Organization Address City/State/ZIP Code Phon e Number [address] CERNER MILLENNIUM COLONOSCOPY (02/24/2013 9:25 AM EDT) [facility] gist Method Time Signature COLONOSCOPY [facility] PROVATION Endoscopy Patient Name: Mandy Foreman ? Procedure Date: 02/24/2013 9:25 AM ? [facility]: [id number] ? Date of : 1945 ? Age: 67 ? Order #: [id number] ? Procedure: ? Colonoscopy Indications: ? Screening for colorectal malignant ? neoplasm, ? S/p sigmoid resection for ? diverticulitis Providers: ? Tejinder Armando MD, Jolly Gonzalez , ? RN, Mandy Guzmán, Grain Elevator Superintendent Referring MD: ?Nakita Pruitt MD Medicines: ? [...] MAR Action Action Date Dose Rate Site fentaNYL 50mcg/mL injection Given 02/24/2013 9:37 AM EDT 25 mcg ONCE PRN, Starting on Sat02/24/13 at 0930, Until Sat02/24/13 at 1633, Pain, Intra-Operative (Intra-Procedure), Routine Given 02/24/2013 9:34 AM EDT 25 mcg Given 02/24/2013 9:30 AM EDT 50 mcg midazolam (VERSED) injection Given 02/24/2013 9:37 AM EDT 1 mg ONCE PRN, Starting on Sat02/24/13 at 0930, Until Sat02/24/13 at 1633, Sleep, Intra-Operative (Intra-Procedure), Routine Given 02/24/2013 9:34 AM EDT 1 mg Given 02/24/2013 9:30 AM EDT 1 mg sodium chloride 0.9% infusion New Bag 02/24/2013 8:30 AM EDT 30 mL/hr 30 mL/hr 30 mL/hr, Intravenous, CONTINUOUS, Starting on Sat02/24/13 [...] injection (CANCELED) 0930 (Given - Provider: Jolly Gonzalez RN)0934 (Given - Provider: Jolly Gonzalez RN)0937 (Given - Provider: Jolly Gonzalez RN) ONCE PRN, Starting Sat02/24/13 at 0930, Until Sat02/24/13 at 1633, Pain, Intra- Operative (Intra-Procedure), Routine midazolam (VERSED) injection (CANCELED) 0930 (Given - Provider: Jolly Gonzalez RN)0934 (Given - Provider: Jolly Gonzalez RN)0937 (Given - Provider: Jolly Gonzalez RN) ONCE PRN, Starting Sat02/24/13 at 0930, Until Sat02/24/13 at 1633, Sleep, Intra- Operative (Intra-Procedure), Routine documented in this encounter Care Teams Card Services Specialist Relationship Specialty Start Date End Date Nakita Pruitt MD PCP - General 06/06/10 08/17/13 HOSPITALIST SERVICES [address] [place] [address] [place] [address] documented as of this encounter
--- OUTSIDE RECORDS SUMMARY | 2022-02-08 09:08 | XMS_ITS | Encounter Summary ---
:1945 Author Organization [facility] [place] [address] Care Team Providers Name Role Phone Tony Fuller Primary Care Provider Encounter Details Date Type Department Care Team Description 06/18/2019 Notes Only Infectious [place] [facility] Clara Shreiff MD [facility] [place] [address] INFECTIOUS DISEASE [phone] [place], [place] [address] (Wo rk) Social History Tobacco Use Types Packs/Day Years Used Date Former Smoker Quit: 09/29/18 85 Smokeless Tobacco: Never Used Alcohol Use Standard Drinks/Week Comments Yes 1.7 (1 standard drink = 0.6 oz pure alco hol) Sex Assigned at Date Recorded Not on file documented as of this encounter Progress Notes Clara Sheriff MD - 06/18/2019 4:10 PM EST Infectious Diseases and International Health Section Note Identification: Patient is a 73 y.[facility]. [facility] who recently transferred care for Aricayse but did not tolerate. Issue: She has noted increased cough, similar to an illness her has. She was to see her primary care provider today. She also is on the fence re intensification of the MAC regimen, for which I suggested clofazimine. She has reviewed the consent and has questions. We agreed to recheck a CT scanand sputum specimen. The former suggests some progression. The latter is negative to date. Recommendations: I tried to call her to see how she was doing, but got VM. I suspect I should expedite our appointment (Jul 28) to discuss these issues. Awaiting finalization of the last AFB culture, though, before intensification undertaken. Late June seems appropriate unless the current illness requires her to be seen urgently. CC: PCP, AB, DK Clara Sheriff MD Attending, Section of Infectious Disease and International Health [email or web address] [phone] documented in this encounter Plan of Treatment Upcoming Encounters Date Type Specialty Care Team Description 02/24/2023 Hospital Encounter Gastroenterology Cristofer Armando MD [facility] DR GASTROENTEROLOGY [place] [address] (Wo rk) Scheduled Procedures Name Priority Associated Diagnoses Date/Time COLONOSCOPY, DIAGNOSTIC H/O DIVERTICULITIS [address] documented as of this encounter Visit Diagnoses Not on filedocumented in this encounter Care Teams Inhalation Therapy Aide Relationship Specialty Start Date End Date Tony Fuller PA PCP - General 09/29/13 03/01/20 [address] [place] [address] documented as of this encounter
--- OUTSIDE RECORDS SUMMARY | 2022-02-08 09:09 | XMS_ITS | Encounter Summary ---
:1945 [place] [address] Care Team Providers Name Role Phone Nakita Russell MD Primary Care Provider Reason for Visit Reason Comments Headache Encounter Details Date Type Department Care Team Description 12/24/2010 - Hospital Encounter [address] [place] Jorge Lawton Jr., MD [facility] [place] [address] Persistent headaches; 12/26/2010 [facility] Ramirez Gold MD [facility] [place] [address] [place] [id number] Social History Tobacco Use Types Packs/Day Years Used Date Never Assessed Sex Assigned at Date Recorded Not on file documented as of this encounter Last Filed Vital Signs Vital Sign Reading Time Taken Comments Blood Pressure 115/55 12/26/2010 7:59 AM EDT Pulse 68 12/26/2010 7:59 AM EDT Temperature 36.6 ??C (97.9 ??F) 12/26/2010 7:59 AM EDT Respiratory Rate 20 12/26/2010 7:59 AM EDT Oxygen Saturation 98% 12/26/2010 7:59 AM EDT Inhaled Oxygen Concentration - - Weight 59.5 kg (131 lb 2.8 oz) 12/24/2010 11:30 PM EDT Height - - Body Mass Index - - documented in this encounter Discharge Instructions Patient InstructionsMaryann Reece MD - 12/26/2010 12:54 PM EDT You were hospitalized for a change in your headaches which were refractory to emergency department treatment. Your clinical picture is likely consistent with an evolution in your migraines. Your MRI ofthe brain was normal. Labwork was unrevealing for an acute cause of your headaches. Your headache improved with administration of the dihydroergotamine protocol, IV fluids, IV caffeine, and dose adjustment of your propranolol to the long acting form and 60mg by mouth twice a day. Please continue to take this dose of propranolol for headache prevention. Please take ibuprofen and vistaril as needed formild to moderate breakthrough headaches. Vistaril can cause sedation so do not drive or operate heavy machinery after taking this medication until you know how it affects you. Please continue to take Sumitriptan as prescribed by your PCP for severe breakthrough headaches. The propranolol, ibuprofen, and vistaril prescriptions have all been sent to your pharmacy of choice. Please follow-up with neurology as indicated below. Patient Instructions: Call your doctor or seek medical attention if you have weakness or numbness in your face or one of your limbs or difficulty speaking loss of vision seizures or loss of consciousness Diet: we recommend a heart healthy diet: low fat, low cholesterol, low concentrated sweets. Activity Restrictions: as tolerated Driving Restrictions: Please do not drive after taking sedating medications Home oxygen therapy: none needed Anticoagulation Follow-up and Instructions: none Follow-up: 1. Neurology: You will have a follow-up appointment in the neurology clinic at [facility] with Dr. Carbajal on January 17 at 3pm. 2. Primary Care Provider: Please follow up with your Primary Care Provider within 4 weeks of hospital discharge. Please call his/her office to schedule an appointment. If you do not have a Primary CareProvider and would like to establish one at [facility], please call the [facility] PCP [facility] at [phone]. documented in this encounter Medications at Time of Discharge Medication Sig Dispensed Refills Start Date End Date propranolol (INDERAL LA) Take 1 capsule by 60 capsule 6 12/1312/26/2011 60 mg 24 hr capsule mouth 2 times daily. ibuprofen (ADVIL;MOTRIN) Take 1 tablet by 30 tablet 5 12/2612/26/2011 800 mg tablet mouth every 8 hours as needed for Pain (mild to moderate headaches). hydrOXYzine (VISTARIL) Take 1 capsule by 30 capsule 5 201001/05/2011 25 mg capsule mouth 3 times daily as needed (mild to moderate headaches) for 10 days. SUMAtriptan (IMITREX) 25 Take 4 tablets by 10 tablet 0 12/1312/26/2011 mg tablet mouth as needed for Migraine (severe headaches). documented as of this encounter Progress Notes Saba Lim RN - 12/26/2010 10:18 AM EDT Pt. Admitted for persistent ESCAMILLA assessed at bedside. Pt. A+Ox4. States pain is 0/10. Denies photophobia. RN requested pt. To ring for OOB to BR or walk. Pt. Stated she understood and would comply. Pt.'s skin intact. IV sites x2 flushed and patent. Review of ESCAMILLA medications schedule. Pt. OOB w/ steady gait w/son assisting for ambulation in schaffer. Pt. Tolerated this well and denied increased ESCAMILLA, SOB, numbness, tingling, photophobia. Plan: A.m. DHE then potentially home. Will continue to monitor. 1125: Pt. Reported feeling jumpy and restless. 0.25 mg Clonazepam PRN given. Daughter at bedside. Pr. Reported her stomach felt fine at this time and declined TUMS. Pt. Discharged to home w/o care of VNA. Pt. To be ddriven home by daughter in private vehicle. At time of D/C, pt.'s VSS and she reports pain @ 0/10. Pt. Denies photophobia, SOB, unsteadiness when ambulating. RN witnessed pt. Walking w/her son; so visible weakness or unsteadiness noted. Pt.'s IV Hep capsx2 removed w/o issue. No s/s infection or inflammation. Pt. Left floor in wheelchair w/ all possessions. AVS reviewed and all questions answered to pt.'s satisfaction. Pt.'s D/C prescriptions faxed to [facility] pharmacy as per pt.'s request. Ramirez Gold MD - 12/26/2010 12:00 AM EDT Neurology Inpatient Progress Note Admission date: 12/24/10 Responsible Attending: Dr. Gold Patient ID: 65 yo female with history of migraines, afib rate controlled/not on coumadin, and HPL admitted for recurrent holocranial headaches x 3 days, different from her typical migraine Interval History/Subjective: S/p IVF and caffeine IV bolus yesterday for positional component of her headache S/p dose titration of DHE to 1mg TID. S/p dose adjustment of propranolol LA to 60mg BID Patient was initiated on clonazepam 0.25mg BID for anxiety Overnight patient states she slept well. She is headache free and there is no longer a positional component. No other complaints this am. Relevant Meds: ??? LORazepam 2 mg Intravenous Once ??? LORazepam 2 mg Intravenous Once ??? caffeine sodium benzoate IV 500 mg Intravenous Once ??? propranolol 60 mg Oral BID ??? diphenhydrAMINE 25 mg Oral TID ??? metoclopramide 10 mg Intravenous TID ??? dihydroergotamine 1 mg Intravenous TID ??? senna-docusate 1-4 tablet Oral BID ??? DISCONTD: dihydroergotamine 1 mg Intravenous TID ??? DISCONTD: diphenhydrAMINE 25 mg Oral TID ??? DISCONTD: metoclopramide 10 mg Intravenous TID ??? DISCONTD: dihydroergotamine 0.5 mg Intravenous TID ??? DISCONTD: propranolol 80 mg Oral Daily Physical Exam: Vitals: Temp: [36.1 ??C (97 ??F)-36.8 ??C (98.2 ??F)] Heart Rate: [65-82] Resp: [16] BP: (137-147)/(66-80) SpO2: [93 %-96 %] General: NAD. Appears stated age. Neuro: Mental Status: alert and oriented. Fluent speech. Follows commands and answers questions appropriately. CN: PERRL, EOMI. Face symmetric without ptosis or droop. Midline palatal elevation and tongue protrusion. Motor: Normal tone and bulk. No tremor or pronator drift. Full strength throughout Sensation: intact to touch throughout Coordination: Normal [id number]-gvjogd, rapid alternating movements, finger taps. Romberg not tested this am Gait: Not tested this am Labs: Admission labs: Mild leukocytosis to 11.3. No anemia or plt dysfunction. No major electrolyte abnormality. Renal function and LFTs within normal limits. TSH normal at 2.92, free T4 normal at 1.3. ESR 8 B12 489 GINA, lyme ab, syphillus ab, and HIV negative anticardipolipin IgG <23, IgM slightly elevated at 12 (<10 normal) Pertinent Radiographic/Diagnostic Results: 12/24/10 CTA head and neck Preliminary read: No aneurysm. No acute hemorrhage Extradural right vertebral with fold but no dissection 12/24/10 EKG NSR at 70bpm, incomplete RBBB, QTc 432, no acute ST segment changes 12/25/10 MRI brain No acute diffusion restriction or structural abnormality per my read, official read pending Assessment: Ms. Foreman is a 65 yo female with a history of migraines, afib rate controlled and not on coumadin, and HPL who presents to the [facility] ED with recurrent holocranial headaches quite different from her typical migraines. Patient also reports several months of episodic imbalance, several weeks of right hand clumsiness, and several days of right sided paresthesias on Saturday. Description of headache has both migrainous and tension-type features. Headache has been refractory to dilaudid, indicating a now possible rebound component. Lumbar puncture and head CT from OSH ruled out SAH. MRI brain here was normal. Admission labs unrevealing. Patient was initiated on the Modified Gela Protocol on admission, with subsequent initial improvement unmasking a possible positional component post-LP. S/pMg 1gm IV, IV caffeine, IVF and dose adjustment of propranolol. Clinical picture likely consistent with evolution of her migraine. This am patient reports her headache is resolved and she no longer experiences the positional exacerbation. She agrees to ambulate this am to ensure headache does not return with activity. If she remains headache-free this am will consider possible discharge home this afternoon. Plan: -continue Modified Gela Protocol: diphenhydramine 25mg PO followed in about one hour by metoclopramide 10mg IV followed in about 15 minutes by 1 mg of dihydroergotamine. Administer regimen TID -Propranolol LA 60mg BID -Toradol 30mg IV Q8hr prn -sumitriptan discontinued on admit -DVT: SCDs -GI: cardiac diet FULL CODE Maryann Reece MD Neurology Attending I saw and evaluated the patient with the neurology team. I have reviewed the resident's history during the visit and I agree with the details as written. My physical examination confirms the resident'sfindings. The assessment and plan were formulated in discussion with me at the time of the visit Candice agree with them as documented. Pertinent History: Doing better. Headache almost completely resolved. Pertinent Exam: Mentally clear, speech normal, strength and sensation normal. Pertinent Diagnostic Studies: None Major issues addressed and Plan: Resolving migraine. Work-up otherwise Normal. OK to discharge today. Will increase inderal for prevention, recommend Motrin and vistaril for milder and more chronic symptoms and imitrex for severe episodic ones. F/U with Dr. Green in [facility]. Susan Costa RN - 12/25/2010 11:52 PM EDT [id number] Per report from Jarad Sapp RN pt is impulsive at times and does not ring reliably when in the BR; bed alarm placed for safety; call brice in reach. Pt set off bed alarm multiple times reaching for her phone and other belongings; placed belongings within reach. Pt's daughter at bedside and reinforced need to call. Pt not on Is/Os; however is receiving NS @ 100 mL/hr; hats placed in BR and explained importance ofIs/Os to pt; pt in agreement with plan. Pt states she does not have a headache at this time (while laying in bed); states pain worsens withactivity; however, pt declined pain when OOB to BR. Denies N/T; +sensation to light touch all 4 extremities. Discussed environmental modifications: quiet environment; promote sleep, etc. Pt agreed withplan and stated she was planning on watching TV for just a little bit. Declines photophobia - PERRL. [id number] Pt showered. Discussed medications. Propanolol given per MD order (pt questioned dosage and frequency - adjusted today?). Pt had questions re: DHE; printed off pt education material and discussed its actions. 2330 - Pt c/o dyspepsia; received order from Colin BALDERAS to give Tums prn; discussed with MD re: no BM since 12/24 (admission); docusate with senna ordered and given (See MAR). 0100 - Pt continues to remain awake; asking for something for anxiety or to sleep. Spoke to Colin BALDERAS and received order for Klonopin prn. Pt continues to void large amounts yellow-clear urine; received order to HL IVF. Pt drinking adequate amounts of fluids. 0400 - Bedside rounding completed; pt appears awake. When addressed pt's needs she stated I guess I'd better get up. Re-oriented pt to the time and she fell back asleep. 0630 - Pt awake, attempting to get OOB without assistance; bed alarm off. Gait unsteady when up; denies vertigo, dizziness. Continues to deny headache. Adilia Goldman RN - 12/25/2010 2:19 PM EDT Office of Care Management Clinical Dinkey Driver (CRC) Adilia Goldman RN, BSN -CRC Neurology/ENT Voice Mail [phone] Pager [phone] #[phone] INITIAL ASSESSMENT Room # 504 Chart reviewed. Patient and plan of care discussed in morning multidisciplinary rounds. 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 SOCIAL/FAMILY SUPPORTS: supportive family INSURANCE COVERAGE/FINANCIAL ISSUES: Medicare ADVANCE DIRECTIVES: DPOA on file REHAB TEAM CONSULTS: Not indicated at this time. CHAIR FRAME BUILDER: Not indicated at this time. ASSESSMENT/PLAN: Nursing assessment reviewed and spoke with team. No new post hospital care needs have been identified. No concerns have been voiced by patient or family requiring CRC intervention. Will continue to be available should needs arise. Flor Caldwell RN - 12/25/2010 2:56 AM EDT Arrived to room 504a via stretcher from ED. Transferred self into bed. Awake and alert oriented. Moves x4 well no weakness noted. Up to BR gait steady. Pt stated headache about a 3/10. She fell asleep quickly. Med with Benadryl, Reglan and then 0.5 mg DHE tolerated meds well. Pt did state later that her headache was better. Ramirez Gold MD - 12/25/2010 12:28 AM EDT Neurology Inpatient Progress Note Admission date: 12/24/10 Responsible Attending: Dr. Gold Patient ID:65 yo female with history of migraines, afib rate controlled/not on coumadin, and HPL admitted for recurrent holocranial headaches x 3 days, different from her typical migraine Interval History/Subjective: Patient admitted and initiated on modified gela protocol, first dose of DHE around MN S/p 1gm IV Mg overnight This am patient reports resolution of her headache at rest, but she now complains of a positional exacerbation when she sits up. She is quite anxious about her MRI scan. She denies recurrence of her right arm paresthesias or clumsiness. She states she has walked to the bathroom this am and denies feeling imbalanced. No additional complaints Relevant Meds: ??? LORazepam 2 mg Intravenous Once ??? LORazepam 2 mg Intravenous Once ??? caffeine sodium benzoate IV 500 mg Intravenous Once ??? ketorolac 30 mg Intravenous Once ??? prochlorperazine 10 mg Intravenous Once ??? bolus IV fluid 1 L Intravenous Once ??? diphenhydrAMINE ??? diaZEPam 10 mg Oral Once ??? diphenhydrAMINE 25 mg Oral TID ??? metoclopramide 10 mg Intravenous TID ??? dihydroergotamine 0.5 mg Intravenous TID ??? propranolol 80 mg Oral Daily ??? magnesium sulfate 1 g Intravenous Once ??? DISCONTD: Magnesium Sulfate in NS 1 g Intravenous Once Physical Exam: Vitals: Temp: [36.1 ??C (97 ??F)-36.8 ??C (98.2 ??F)] Heart Rate: [71-94] Resp: [16-20] BP: (116-161)/(57-95) SpO2: [95 %-98 %] General: NAD. Appears stated age. Neuro: Mental Status: alert and oriented. Fluent speech. Follows commands and answers questions appropriately. CN: PERRL, EOMI. Facial sensation intact to light touch throughout. Face symmetric without ptosis ordroop. Midline palatal elevation and tongue protrusion. Normal shoulder shrug, normal head rotation strength Motor: Normal tone and bulk. No tremor or pronator drift. Full strength throughout Reflex: downgoing toes BL Sensation: intact to touch throughout Coordination: Normal [id number]-zkmt-vfftet, rapid alternating movements, finger taps. Romberg not tested this am Gait: Not tested this am Labs: Admission labs: Mild leukocytosis to 11.3. No anemia or plt dysfunction. No major electrolyte abnormality. Renal function and LFTs within normal limits. TSH normal at 2.92, free T4 normal at 1.3. ESR 8 B12 489 GINA, Anticardiolipin, Lyme ab, HIV, VDRL Pertinent Radiographic/Diagnostic Results: 12/24/10 CTA head and neck Preliminary read: No aneurysm. No acute hemorrhage Extradural right vertebral with fold but no dissection 12/24/10 EKG NSR at 70bpm, incomplete RBBB, QTc 432, no acute ST segment changes Assessment: Ms. Foreman is a 65 yo female with a history of migraines, afib rate controlled and not on coumadin, and HPL who presents to the [facility] ED with recurrent holocranial headaches quite different from her typical migraines. Patient also reports several months of episodic imbalance, several weeks of right hand clumsiness, and several days of right sided paresthesias on Saturday. Description of headache has both migrainous and tension-type features. Headache has been refractory to dilaudid, indicating a now possible rebound component. Lumbar puncture and head CT from OSH ruled out SAH. Neurological examination on admission was pertinent for moderate distress, impaired distal LE vibratory sense and some difficulty with tandem gait. Admission labs unrevealing thus far. Given her vascular risk factors (afib not on coumadin, hyperlipidemia) and additional more long-standing complaints (right hand clumsiness, right sided paresthesias) a posterior circulation vascular event is also on the differentia l. CTA of the head and neck was unrevealing for an acute vascular abnormality. Although her imbalance seems more episodic and long-standing concerning for peripheral vertigo, her neurological examination is less consistent with this. Patient is clinically improved but now with a positional component this am. Will proceed with the following evaluation and management plan: Plan: -fu pending labs -will initiate 500mg IV caffeine bolus and MIVF this am for possible low pressure headache secondaryto LP -continue Modified Gela Protocol: diphenhydramine 25mg PO followed in about one hour by metoclopramide 10mg IV followed in about 15 minutes by 1 mg of dihydroergotamine. Administer regimen TID -Propranolol LA 80mg daily -->will transition to Propranolol LA 60mg BID -Toradol 30mg IV Q8hr prn -sumitriptan discontinued on admit -imaging: MRI with sandra pending, will administer Ativan prn for anxiety -DVT: SCDs -GI: cardiac diet FULL CODE Maryann Reece MD Neurology Attending I saw and evaluated the patient with the neurology team. I have reviewed the resident's history during the visit and I agree with the details as written. My physical examination confirms the resident'sfindings. The assessment and plan were formulated in discussion with me at the time of the visit Candice agree with them as documented. Pertinent History: Seems to be doing better this morning. Headache sounds more positional. Pertinent Exam: Mentally clear, speech normal. Strength and reflexes normal. Pertinent Diagnostic Studies: MRI syed requested, pending Major issues addressed and Plan: Still suspect transformed migraine. Seems to be getting better with DHE. ? Post-LP headache. Will give caffeine and more fluids in addition to DHE protocol. documented in this encounter H&P Notes Ramirez Gold MD - 12/24/2010 11:02 PM EDT Neurology Inpatient History and Physical Admission Note Date: 12/24/10 Reason for Referral: We are seeing this patient at the request of Dr. Kelly for evaluation of headaches HPI: Ms. Foreman is a 65 yo female with a history of migraines, afib rate controlled and not on coumadin, and HPL who presents to the [facility] ED with recurrent holocranial headaches. Patient has been evaluated several times since Saturday in the [facility] ED. This is her first presentation for headaches to the [facility] ED. Patient reports she awoke on Saturday with generalized malaise that progressively worsened throughout the day. She also complained of right sided paresthesias in her arm and leg upon awakening. She had complained of prickly sensations on the right several days prior per her . Additionally she felt like her hand was more clumsy than normal, although this has been progressing for 2 weeks. Her thus brought her into the local ED. She reports she did not awaken with a headache that day butbelieves she had several mild headaches overnight. She laid down in the ED bed and experienced the sudden onset of a severe sharp headache located occipitallywith associated neck pain, and radiating forward. She then describes the headache as more holocranial. She does not remember at onset if she hadassociated photo/phonophobia. She was adminisitered dilaudid which brought the headache down to a 2/10 from 10/10. She started to complain of photo/phonophobia and nausea at this time. Nausea improved with Zofran administered. CT head was unrevealing for an acute process. Mild leukocytosis to 11.8. LFTs within normal limits. Ca slightly elevated at 10.3, no other major electrolyte abnormality. Neurological examination was reported to be nonfocal. She was diagnosed with a migraine and it was suggested she see a neurologist (she had previously been referred to Dr. Green). Several hours later she rep orted worsening severity of her headache, but of similar character. She represented to the same ED later that day. Lumbar puncture was performed at this time with protein slightly elevated at 51, glc 71, 0 WBC, 15 RBC, xanthrochromia clear, no growth on gram stain. No opening pressure was obtained. She was administered Zofran, Dilaudid and was sent home with po dilaudid. Overnight on Saturday into Saturday she reports her symptoms initially improved, then recurred with similar intensity and character.The patient returned to the ED on 12/23/10, was told she had tension type headaches and was given flexiril and toradol and sent home. She represented later that day to the same ED due to unrelenting head aches, was told to take flexiril every 6 hours and to call a neurologist on Saturday am. Patient was scheduled to see Dr. Green at [facility] in the next 2 weeks. Currently the patient rates her headache at a 4/10 and holocranial. She has received Toradol 30, benedryl, compazine, IVF, 10mg Valium in the ED. On arrival to the [facility] her headache was rated as a 7/10. Denies positional component but worsens with activity such as walking. Denies worsening with valsalva. Patient as a history of occasionally productive cough for the past 6 weeks due to seasonal allergies, but no recent URI or diarrheal illness. She states the right sided paresthesias resolved on Saturday and has not recurred. She believes she has been having clumsiness of her right hand, slowly progressing over the last 2 weeks. Additionally the patient noted 5-6 months of progressive issues with her balance. She began to have difficulty with walking on uneven terrain or up/down stairs. She feels more off balance than weak with trouble placing her feet. Denies lightheadedness or room spinning. She does state she felt like a bobble head with the world bouncing around. Both the balance issues and sensation of the world bouncing around are episodic and are occuring with increasing frequency. No falls. Denies changes in vision or speech, focal weakness (beyond the right hand clumsiness). She reports she started having headaches in early age 39s around menopause. Headaches described as severe, pounding, bifrontal, associated nausea, photophobia, and phonophobia. She was diagnosed with migraines by her PCP. No identifiable triggers. She has never seen a neurologist before. Last migrianewas 3 weeks ago. Frequency every month. Symptoms improved with sumitriptan and rest in a dark room. She is currently on propranolol for headache prophylaxis. 4-5 years ago patient experienced trauma with LOC to the back of her head while skiing helmeted. Current stressors include elderly mother who in August. She is now dealing with selling her family's home and her has been ill. No sudden stressor last week. Past Medical History: Diverticulitis HPL Mgraines S/p C section S/p thyroid biopsy, adenoma S/p intestinal resection Prior history of MAC infection [id number] (treated with rifambutal) Medications: Sumitriptan po prn migraine (uses once every few months) Propranolol 80mg daily migraine prophylaxis (unknown if long-acting) Allergies: Cholecalciferol-shooting pain in extremities propoxyene-palpitations Naproxen-facial swelling Venlafaxine-anxiety FHx: Negative migraines Father with dementia age 85 yo Mother with dementia age 85 yo SHx: Lives in [place], [place] with her . 2 kids. Former smoker, quit 25 yr ago, 1ppd x 20 yr Occasional EtOH. Denies illicits. ROS: General: no fevers , some chills , denies unintentional weight change, +fatigue Eyes: no vision changes, diplopia, or blurry vision. ENT: no sore throat or dysphagia, seasonal allergies CVS: denies chest pain, palpitations Respiratory: denies SOB, denies cough, denies wheezing GI: no reflux, no abdominal discomfort, no diarrhea/constipation, no nausea/vomiting. : no dysuria or hematuria Musculoskeletal: no myalgias, no acute joint pain or swelling Skin: no rashes or bruises Endocrine: denies h/o DM, history of adenoma, diagnosed with hypothyroidism, taken off Synthroid dueto imbalance several months Neuro: see HPI Psych: denies depression/anxiety. Physical Exam: Vitals: Temp: [36.5 ??C (97.7 ??F)] Heart Rate: [82-94] Resp: [18-20] BP: (116-161)/(57-95) SpO2: [95 %-98 %] General: Middle aged female laying supine in dark room. Appears in moderate distress due to headachepain, with a towel over her eyes. Nondiaphoretic. HEENT: normocephalic/atraumatic. Oropharynx clear. Neck is supple with FROM. No meningeal signs . Nooccipital nerve tenderness CV: regular rate/rhythm, no murmurs/rubs/gallops. No carotid bruits ascultated. Pulm: clear to auscultation bilaterally. Abd: soft, ND, NTTP, NABS Extremities: warm and well perfused, no edema Neuro: Mental Status: alert and oriented to person, place and date. Speech is fluent without dysarthria or aphasi a . Naming, reading, repetition intact. Able to follow multistep commands crossing midline. CN: PERRL, EOMI, visual lazaro intact. Limited fundoscopic exam due to photophobia but no disc appear sharp from brief evaluation . Facial sensation intact to light touch throughout. Hearing intact to fingerub BL. Face symmetric without ptosis or droop. Midline palatal elevation and tongue protrusion.Normal shoulder shrug, normal head rotation strength Motor: Normal tone and bulk. No tremor or pronator drift. Full strength throughout Reflex: R: TJ 2+, BJ 2+, BRJ 2+, Pat 1 +, AJ 1 +, toes downgoing L: TJ 2+, BJ 2+, BRJ 2+, Pat 1 +, AJ 1 +, toes downgoing Sensation: intact to touch, temp, pin, and proprioception throughout. Decreased to vibration in distal LE BL. Coordination: Normal itmeip-nfrh-gygvzi, rapid alternating movements, finger taps. Slightly unsteadywith Romberg testing but does not fall to one side Gait: Normal gait and armswing. Able to stand on heels and toes. Able to perform tandem gait withoutdifficulty Other: Carlos Hallpike maneuver did not elicit symptoms or nystagmus Labs: Results for orders placed during the hospital encounter of 12/24/10 (from the past 24 hour(s)) COMPREHENSIVE METABOLIC PANEL (NON-FASTING) Component Value Range ??? Glucose Lvl 102 60 - 199 (mg/dL) ??? BUN 7 (*) 8 - 18 (mg/dL) ??? Creatinine 0.63 (*) 0.70 - 1.20 (mg/dL) ??? Sodium 138 135 - 145 (mmol/L) ??? Potassium 3.8 3.5 - 5.0 (mmol/L) ??? Chloride 99 98 - 107 (mmol/L) ??? CO2 30 22 - 31 (mmol/L) ??? Anion Gap 9 5 - 15 (mmol/L) ??? Calcium 10.5 8.5 - 10.5 (mg/dL) ??? Total Protein 7.3 6.4 - 8.3 (gm/dL) ??? Albumin 4.4 3.2 - 5.2 (gm/dL) ??? AST Not Perf 0 - 30 (unit/L) ??? ALT 12 0 - 30 (unit/L) ??? Alk Phos 80 40 - 104 (unit/L) ??? Total Bilirubin 0.4 0.2 - 1.3 (mg/dL) ??? Bili, Direct 0.1 0.0 - 0.3 (mg/dL) ? ? Estimated GFR >60 >=60 TSH Component Value Range ??? TSH 2.92 0.27 - 4.20 (mcIU/mL) SEDIMENTATION RATE Component Value Range ??? Sed Rate 8 0 - 20 (mm/hr) T4, FREE Component Value Range ??? Free T4 1.30 0.90 - 1.60 (ng/dL) CBC (WITH DIFF) Component Value Range ??? WBC 11.3 (*) 4.0 - 10.0 (x10(3)/mcL) ??? RBC 5.42 (*) 3.93 - 5.22 (x10(6)/mcL) ??? Hemoglobin 15.2 11.2 - 15.7 (gm/dL) ??? Hematocrit 46.0 (*) 34.0 - 45.0 (%) ??? MCV 84.9 79.0 - 94.0 (fL) ??? MCH 28.0 26.6 - 32.2 (pg) ??? MCHC 33.0 32.0 - 36.5 (gm/dL) ??? Platelets 329 145 - 370 (x10(3)/mcL) ??? RDWSD 40.6 35.0 - 46.0 (fL) ??? RDWCV 13.1 10.9 - 14.4 (%) ??? MPV 11.0 9.0 - 12.0 (fL) REFLEX LAB-A-DIFF Component Value Range ??? Neutrophils % 73.4 (*) 34.0 - 71.0 (%) ??? Neutr Abs (ANC) 8.30 (*) 1.50 - 6.30 (x10(3)/mcL) ??? Lymphocytes % 21.4 19.0 - 53.0 (%) ??? Lymphocytes Abs 2.4 1.0 - 3.6 (x10(3)/mcL) ??? Monocytes % 4.7 4.0 - 13.0 (%) ??? Monocyte Abs 0.5 0.2 - 1.0 (x10(3)/mcL) ??? Eosinophils % 0.3 0.0 - 7.0 (%) ??? Eosinophils Abs 0.0 0.0 - 0.5 (x10(3)/mcL) ??? Basophils % 0.1 0.0 - 2.0 (%) ??? Basophils Abs 0.0 0.0 - 0.2 (x10(3)/mcL) ??? Immature Gran % 0.10 0.00 - 0.66 (%) ??? Marsha Gran Abs 0.01 0.00 - 0.05 (x10(3)/mcL) Pertinent Radiographic/Diagnostic Results: 12/24/10 CTA head and neck Preliminary read: No aneurysm. No acute hemorrhage Extradural right vertebral with fold but no dissection Assessment: Ms. Foreman is a 65 yo female with a history of migraines, afib rate controlled and not on coumadin, and HPL who presents to the [facility] ED with recurrent holocranial headaches quite different from her typical migraines. Patient also reports several months of episodic imbalance, several weeks of right hand clumsiness, and several days of right sided paresthesias on Saturday. Description of headache has both migrainous and tension-type features. Headache has been refractory to dilaudid, indicating a now possible rebound component. Lumbar puncture and head CT from OSH ruled out SAH. Neurological examination is pertinent for moderate distress, impaired distal LE vibratory sense and some difficulty with tandem gait. Labs with mild leukocytosis, normal electrolytes and renal function, normal ESR, and TFTs. Will also draw Vitamin B12, folate levels, HIV, GINA, anticardiolipin, lyme antibody, VDRL at this time. Given her vascular risk factors (afib not on coumadin, hyperlipidemia) and additional more long-standing complaints (right hand clumsiness, right sided paresthesias) an acute posterior circulation vascular event is also on the differential CTA of the head and neck was unrevealing for an acute vascular abnormality. Although her imbalance seems more episodic and long-standing concerning for peripheral vertigo, her neurological examination is less consistent with this. Given the complexity of her story and current degree of headache we will thus admit the patient to Neurology and proceed with the following plan: Recommendation: -admit to Neurology, 5west -EKG on admit -labs: folate, B12, GINA, anticardiolipin, lyme Ab, HIV, VDRL -Mg 1gm IV now -will initiate Modified Gela Protocol: diphenhydramine 25mg PO followed in about one hour by metoclopramide 10mg IV followed in about 15 minutes by 0.5 mg of dihydroergotamine. Administer regimen TID with the dihydroergotamine titrated to the effect of sub-nauseating dose; up to maximum dose of 1 mg of DHE TID. -Propranolol LA 80mg daily -Toradol 30mg IV Q8hr prn -discontinue sumitriptan on admit -imaging: MRI with sandra -DVT: SCDs -GI: cardiac diet FULL CODE Case discussed with Dr. Alla Reece MD Neurology Attending I saw and evaluated the patient with the neurology team. I have reviewed the resident's history during the visit and I agree with the details as written. My physical examination confirms the resident'sfindings. The assessment and plan were formulated in discussion with me at the time of the visit Candice agree with them as documented. Pertinent History: Patient with long history of migrainous headaches, now presenting with changed pattern of headaches and a variety of neurological symptoms including imbalance and and right body incoordination. CT/ CTA, and LP unremarkable. Pertinent Exam: Mentally clear, speech normal. Strength and reflexes normal. Pertinent Diagnostic Studies: Routine labs unremarkable. Major issues addressed and Plan: Probably this is just an evolution of he migraine syndrome. Post-LP headache and analgesic rebound may be contributory. Will admit hydrate and try DHE protocol. Needs MRI to R/O Other intracranial pathology. documented in this encounter Procedure Notes Provider, Scanning - 12/28/2010 2:14 PM EDTAssociated Order(s): SCAN DOC: LAB; SCAN DOC: LAB Provider, Scanning - 12/28/2010 2:14 PM EDTAssociated Order(s): SCAN DOC: DIAGNOSTIC RADIOLOGY; SCAN DOC: DIAGNOSTIC RADIOLOGY Provider, Scanning - 12/28/2010 2:14 PM EDTAssociated Order(s): SCAN DOC: CT SCAN; SCAN DOC: CT SCAN documented in this encounter ED Notes Meme Gaviria RN - 12/24/2010 10:38 PM EDT [facility] unable to take report at this time. Meme Gaviria RN - 12/24/2010 7:30 PM EDT Pt c/o agitation and anxiety, requesting something to help. Dr. Rosario notified. Orders received. Meme Gaviria RN - 12/24/2010 7:13 PM EDT Assumed care of pt at this time. Pt resting comfortably, states the pain is much better. A&Ox3. Son at bedside. Awaiting possible CTA. Shahrzad Noriega RN - 12/24/2010 6:40 PM EDT Pt up to ambulate with . Assisted back to stretcher. Pt reports i don't feel right pt observed moving about on stretcher repeatedly. Pt states she feels jittery. Pt medicated with benadryl as ordered Shahrzad Noriega RN - 12/24/2010 6:40 PM EDT Pt assisted up to br to void Jorge Kelly - 12/24/2010 6:33 PM EDT Chief Complaint Patient presents with ??? Headache HPI Scheduled Meds: ??? diphenhydrAMINE ??? ketorolac 30 mg Intravenous Once ??? prochlorperazine 10 mg Intravenous Once ??? bolus IV fluid 1 L Intravenous Once PRN Meds: Allergies Allergen Reactions ??? Naproxen Sodium CIS - facial swelling ??? Propoxyphene Hcl CIS - facial swelling ??? Oxycodone Hcl CIS - Nausea/Vomiting ??? Pentazocine-naloxone CIS - rapid HR Review of Systems Physical Exam Procedures MDM ED Course: ED ATTENDING ADDENDUM: The patient was seen in conjunction with Dr. Rosario, the resident physician. I have independently performed the camara portions of the history and physical exam. I have reviewed all diagnostic studies personally including labs, imaging studies and EKG's. I have discussed the details of the case with the resident and agree with the assessment and plan as described in the resident note above unless noted otherwise below. In summary, Greater than 6 months of ESCAMILLA and nonspecific gait instability. W/U at outside hospital including noncontrast Head CT and MRI. Reported normal LP in previous two days. Evaluation by neurologywith diagnosis of probable migraine variant. Subsequent CTA of the head is reported as normal. Final Assessment: Migraine Variant with Recalcitrant ESCAMILLA Final Disposition: Admission to Neurology Service. Jorge Kelly Jr., MD 12/24/10 2150 Jorge Kelly Jr., MD 02/12/11 0923 Jorge Kelly Jr., MD 02/14/11 1511 Shahrzad Noriega RN - 12/24/2010 5:45 PM EDT Pt's son to nurses station reporting concern that pain is much worse. are they going to do anything reviewed pt concerns with pt MD and Resident. Charo Rosario MD - 12/24/2010 5:09 PM EDT Chief Complaint Patient presents with ??? Headache HPI 65 y/o F with PMHx significant for Afib and migraines who presents for intractable headaches. She reports stabbing occipital headaches of three days duration that radiate frontally that range from 5/10to 12/10. She reports sensitivity to light and noise. She denies any triggers to the headaches or fev ers but does report associated mild neck stiffness and chills. Headaches are not similar to prior migraines headaches. No history of trauma. Patient presented to [facility] ED on 12/22/10 for evaluation for general malaise when she developed a headache. Work-up at that time included a normal CT and elevated WBC 11.8. Patient was discharged as she seemed to improve with dilaudid, IV zofran and fluid. She represented later in the day with worseningheadache and was discharged home with dilaudid 2mg q4h PRN x 6tab, zofran 4mg q4h PRN, and omeprazole 20mg qdaily. She presented to [facility] ED on 12/23/10 for worsening headache and at that time a LP. CSF findings included WBC 0, normal glucose 71, protein 51, and no growth x 2 days of CSF culture. She was discharged home with flexeril and toradol for suspected diagnosis of tension headaches. Of note, patient reports that in the last six months she has had progressively worsening balance issues which she describes as unsteadiness when planting her foot on the ground the that is more on the right. PCP was concerned that balance issues may be medication induced and so discontinued her levothyroxine She denies any lower extremity weakness, dizziness, or vertigo. She does report during those six months RUE paresthesias. She also reports that Dr. Oneal of ENT noted three weeks ago that he wasconcerned about her acute sensorineural hearing loss. In regards to migraine history, patient reports that she started having migraines with aura in her 40s. She describes stabbing bifrontal headaches with no trigger and notes sensitivity to light and noise. She reports improvement in her headache when she is in a dark room and sometimes with sumatriptan. Never been evaluated by a neurologist. Medications: Propranolol 80mg qam Pravastatin 20mg qdaily Flexeril PRN Sumatriptan PRN Allergies Allergen Reactions ??? Naproxen Sodium CIS - facial swelling ??? Propoxyphene Hcl CIS - facial swelling ??? Oxycodone Hcl CIS - Nausea/Vomiting ??? Pentazocine-naloxone CIS - rapid HR PMH: Hx of afib ?? Rate controlled by beta shun Migraines ?? 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 Negative for fever. HENT: Positive for neck stiffness. Negative for hearing loss, ear pain, trouble swallowing, neck pain, sinus pressure and tinnitus. Eyes: Negative for photophobia, pain and visual disturbance. Respiratory: Negative. Cardiovascular: Negative. Gastrointestinal: Negative. Genitourinary: Negative. Musculoskeletal: Positive for back pain (chronic back pain) and gait problem (of six months duration). Negative for arthralgias. Skin: Negative. Neurological: Positive for numbness (intermittent numbness/tingling of RUE) and headaches (occipitalheadaches of three days duration). Negative for dizziness, tremors, seizures, syncope, facial asymmetry, speech difficulty, weakness and light-headedness. Hematological: Negative. Physical Exam Temp: [36.5 ??C (97.7 ??F)] Heart Rate: [82-87] Resp: [18-20] BP: (116-149)/(57-95) General: In no acute distress HEENT: NCAT, oropharynx benign, MMM, no ttp of sinus, occiput or cervical spine CV: RRR, ns1s2, no m/r/g Resp: CTA-B Abd: soft, NT/ND, normal active bowel sounds, no organomegaly, no CVA tenderness Ext: no edema, rashes, or bruises Neuro: Mental status: alert & oriented x3 Cranial nerves: EOMI, PERRL, no facial asymmetry, facial sensation intact to light touch, hearing intact to finger rub, uvula midline, tongue moves side to side without difficulty Motor: No abnormal movements or pronator drift, 5/5 strength in all extremities Reflexes: 2+ biceps, triceps, patellar and achilles b/l Sensation: Intact to light touch and temperature Coordination: No slowing on rapid alternative movements, Proprioception intact, Romberg not illicted Gait: Slightly wide based gait, some difficulty with heel to toe, no difficulty walking on heel or toes Procedures MDM ED Course: Patient given Toradol 30mg IV and Compazine 10mg IV for headache relief. CBC, CMP, TSH, free T4, andESR pending. If renal function wnl, patient to go for CT/CTa of head and neck for further evaluation. Spoke with Dr. Reece of Neurology regarding consult. Charo Rosario MD Resident 12/24/10 1912 Shahrzad Noriega RN - 12/24/2010 5:00 PM EDT Pt family anxious re plan of care TW attempted to reassure pt and family MD aware Shahrzad Noriega RN - 12/24/2010 3:00 PM EDT Resident in to see pt and family and review plan of care. Med records requested from [facility]. documented in this encounter Miscellaneous Notes Miscellaneous - Provider, Scanning - 12/27/2010 3:39 PM EDT Discharge Summary - Maryann Reece MD - 12/26/2010 12:00 AM EDT Patient Name: Mandy Foreman : 1945 Admit Date: 12/24/2010 Discharge Date: [address] [place] [address] Primary Diagnosis: Intractable headaches, likely evolution of migraine Past Medical History: Diverticulitis HPL Mgraines S/p C section S/p thyroid biopsy, adenoma S/p intestinal resection Prior history of MAC infection [id number] (treated with rifambutal) History of Presentation: Ms. Foreman is a 65 yo female with a history of migraines, afib rate controlled and not on coumadin, and HPL who presents to the [facility] ED with recurrent holocranial headaches. Patient has been evaluated several times since Saturday in the [facility] ED. This is her first presentation for headaches to the [facility] ED. Patient reports she awoke on Saturday with generalized malaise that progressively worsened throughout the day. She also complained of right sided paresthesias in her arm and leg upon awakening. She had complained of prickly sensations on the right several days prior per her . Additionally she felt like her hand was more clumsy than normal, although this has been progressing for 2 weeks. Her thus brought her into the local ED. She reports she did not awaken with a headache that day butbelieves she had several mild headaches overnight. She laid down in the ED bed and experienced the sudden onset of a severe sharp headache located occipitallywith associated neck pain, and radiating forward. She then describes the headache as more holocranial. She does not remember at onset if she hadassociated photo/phonophobia. She was adminisitered dilaudid which brought the headache down to a 2/10 from 04/23. She started to complain of photo/phonophobia and nausea at this time. Nausea improved with Zofran administered. CT head was unrevealing for an acute process. Mild leukocytosis to 11.8. LFTs within normal limits. Ca slightly elevated at 10.3, no other major electrolyte abnormality. Neurological examination was reported to be nonfocal. She was diagnosed with a migraine and it was suggested she see a neurologist (she had previously been referred to Dr. Green). Several hours later she rep orted worsening severity of her headache, but of similar character. She represented to the same ED later that day. Lumbar puncture was performed at this time with protein slightly elevated at 51, glc 71, 0 WBC, 15 RBC, xanthrochromia clear, no growth on gram stain. No opening pressure was obtained. She was administered Zofran, Dilaudid and was sent home with po dilaudid. Overnight on Saturday into Saturday she reports her symptoms initially improved, then recurred with similar intensity and character.The patient returned to the ED on 12/23/10, was told she had tension type headaches and was given flexiril and toradol and sent home. She represented later that day to the same ED due to unrelenting headaches, was told to take flexiril every 6 hours and to call a neurologist on Saturday am. Patient was scheduled to see Dr. Green at [facility] in the next 2 weeks. Currently the patient rates her headache at a 4/10 and holocranial. She has received Toradol 30, benedryl, compazine, IVF, 10mg Valium in the ED. On arrival to the [facility] her headache was rated as a 7/10. Denies positional component but worsens with activity such as walking. Denies worsening with valsalva. Patient as a history of occasionally productive cough for the past 6 weeks due to seasonal allergies, but no recent URI or diarrheal illness. She states the right sided paresthesias resolved on Saturday and has not recurred. She believes she has been having clumsiness of her right hand, slowly progressing over the last 2 weeks. Additionally the patient noted 5-6 months of progressive issues with her balance. She began to have difficulty with walking on uneven terrain or up/down stairs. She feels more off balance than weak with trouble placing her feet. Denies lightheadedness or room spinning. She does state she felt like a bobble head with the world bouncing around. Both the balance issues and sensation of the world bouncing around are episodic and are occuring with increasing frequency. No falls. Denies changes in vision or speech, focal weakness (beyond the right hand clumsiness). She reports she started having headaches in early age 40s around menopause. Headaches described as severe, pounding, bifrontal, associated nausea, photophobia, and phonophobia. She was diagnosed with migraines by her PCP. No identifiable triggers. She has never seen a neurologist before. Last migrianewas 3 weeks ago. Frequency every month. Symptoms improved with sumitriptan and rest in a dark room. She is currently on propranolol for headache prophylaxis. 4-5 years ago patient experienced trauma with LOC to the back of her head while skiing helmeted. Current stressors include elderly mother who in August. She is now dealing with selling her family's home and her has been ill. No sudden stressor last week. Physical Exam at Admission: Vitals: Temp: [36.5 ??C (97.7 ??F)] Heart Rate: [82-94] Resp: [18-20] BP: (116-161)/(57-95) SpO2: [95 %-98 %] General: Middle aged female laying supine in dark room. Appears in moderate distress due to headachepain, with a towel over her eyes. Nondiaphoretic. HEENT: normocephalic/atraumatic. Oropharynx clear. Neck is supple with FROM. No meningeal signs . Nooccipital nerve tenderness CV: regular rate/rhythm, no murmurs/rubs/gallops. No carotid bruits ascultated. Pulm: clear to auscultation bilaterally. Abd: soft, ND, NTTP, NABS Extremities: warm and well perfused, no edema Neuro: Mental Status: alert and oriented to person, place and date. Speech is fluent without dysarthria or aphasi a . Naming, reading, repetition intact. Able to follow multistep commands crossing midline. CN: PERRL, EOMI, visual lazaro intact. Limited fundoscopic exam due to photophobia but no disc appear sharp from brief evaluation . Facial sensation intact to light touch throughout. Hearing intact to fingerub BL. Face symmetric without ptosis or droop. Midline palatal elevation and tongue protrusion.Normal shoulder shrug, normal head rotation strength Motor: Normal tone and bulk. No tremor or pronator drift. Full strength throughout Reflex: R: TJ 2+, BJ 2+, BRJ 2+, Pat 1 +, AJ 1 +, toes downgoing L: TJ 2+, BJ 2+, BRJ 2+, Pat 1 +, AJ 1 +, toes downgoing Sensation: intact to touch, temp, pin, and proprioception throughout. Decreased to vibration in distal LE BL. Coordination: Normal [id number]-[id number], rapid alternating movements, finger taps. Slightly unsteadywith Romberg testing but does not fall to one side Gait: Normal gait and armswing. Able to stand on heels and toes. Able to perform tandem gait withoutdifficulty Other: Carlos Hallpike maneuver did not elicit symptoms or nystagmus Operations & Procedures: None Consultations: None Hospital Course: Mandy Foreman was admitted to the neurology service for further evaluation. OSH CT head and lumbar puncture were unrevealing for an acute process, as mentioned above. She was admitted to [facility] with frequent neurological checks. Sumitriptan was held on admission and propranolol was converted to long-acting form and dose adjusted. She was administered 1gm IV Magnesium in the ED. CTA of the head and neck was unrevealing for acute vascular abnormality. Patient was initiated on the Modified Gela protocol adminstered TID with 25 Benedryl followed in 1 hour by 10 mg Reglan, followed in 15 min by 0.5mg of DHE. Patient tolerated the initial dose of DHE with subsequent improvement of her headache overnight on admission. Thus the dose of DHE was titrated to 1mg TID. The morning after admission the patient began to complain of a positional component to her headaches, likely secondary to recent lumbar puncture. She was thus administered IV caffeine and IVF. MRI brain was normal, see report below. On day of discharge patient reported complete resolution of headache, even with change in position or ambulation. Clinical picture likely consistent with evolution of her migraine. She will be discharged on the following headache regimen: Prevention: propranolol LA 60mg po BID Mild to moderate breakthrough: ibuprofen and vistaril prn Severe breakthrough: continue sumatriptan (as prescribed by her PCP). Patient will be discharged on the ambulatory regimen with Neurology follow-up as indicated below. Labs: Admission labs: Mild leukocytosis to 11.3. No anemia or plt dysfunction. No major electrolyte abnormality. Renal function and LFTs within normal limits. TSH normal at 2.92, free T4 normal at 1.3. ESR 8 B12 489 GINA, lyme ab, syphillus ab, and HIV negative anticardipolipin IgG <23, IgM slightly elevated at 12 (<10 normal) Pertinent Radiographic/Diagnostic Results: 12/24/10 CTA head and neck No significant abnormality. 12/24/10 EKG NSR at 70bpm, incomplete RBBB, QTc 432, no acute ST segment changes 12/25/10 MRI brain without contrast Normal MR of the brain. Lab results pending at discharge: none Condition at Discharge: Vitals stable. Nonfocal neurological examination. Headache resolved. Patient is being discharged to: home with family Medications at Discharge: No medications prior to admission that will be resumed at discharge. New medications prescribed at discharge: Medication Sig Dispense Refill ??? propranolol (INDERAL LA) 60 mg 24 hr capsule Take 1 capsule by mouth 2 times daily. 60 capsule 6 ??? ibuprofen (ADVIL;MOTRIN) 800 mg tablet Take 1 tablet by mouth every 8 hours as needed for Pain (mild to moderate headaches). 30 tablet 5 ??? hydrOXYzine (VISTARIL) 25 mg capsule Take 1 capsule by mouth 3 times daily as needed (mild to moderate headaches) for 10 days. 30 capsule 5 ??? SUMAtriptan (IMITREX) 25 mg tablet Take 4 tablets by mouth as needed for Migraine (severe headaches). 10 tablet 0 Changes to Medication Regimen: Propranolol changed to long acting and dose adjusted to 60mg BID Vistaril and ibuprofen prn for mild to moderate breakthrough headaches ADR/ALLERGIES: Allergies Allergen Reactions ??? Naproxen Sodium Other (See Comments) facial swelling ??? Propoxyphene Hcl Other (See Comments) facial swelling ??? Pentazocine-naloxone Other (See Comments) rapid HR ??? Oxycodone Hcl Nausea And Vomiting Smoking Cessation: [ x ] No, Patient is a a non-smoker. Primary Care Provider: NAKITA RUSSELL MD Recommendations for Primary Care Provider for Follow-up: Please see the patient for a hospital checkwithin 4 weeks of hospital discharge Patient Instructions: Call your doctor or seek medical attention if you have weakness or numbness in your face or one of your limbs or difficulty speaking loss of vision seizures or loss of consciousness Diet: we recommend a heart healthy diet: low fat, low cholesterol, low concentrated sweets. Activity Restrictions: as tolerated Driving Restrictions: Please do not drive after taking sedating medications Home oxygen therapy: none needed Anticoagulation Follow-up and Instructions: none Follow-up: 1. Neurology: You will have a follow-up appointment in the neurology clinic at [facility] with Dr. Carbajal on January 17 at 3pm. 2. Primary Care Provider: Please follow up with your Primary Care Provider within 4 weeks of hospital discharge. Please call his/her office at the number listed above to schedule an appointment. If youdo not have a Primary Care Provider and would like to establish one at [facility], please call the [facility] PCP Connection Line at [phone]. For questions regarding this document or issues relating to this hospitalization on the Neurology Service, please contact the author(s) of this discharge summary through the [facility] [employer] . cc: Miscellaneous - Provider, Scanning - 12/25/2010 1:14 PM EDT Miscellaneous - Provider, Scanning - 12/25/2010 12:41 AM EDT ED Triage - Shahrzad Noriega RN - 12/24/2010 3:32 PM EDT Pt and family members report 6 months of intermittent unsteady gait, paraesthesia, dizziness Saturday pt awoke with sudden onset 04/23 headache ED Triage - Leticia Anne RN - 12/24/2010 2:34 PM EDT Pt reports that she has had a ESCAMILLA x 3 days for which she has been eval @ [facility] x3. She had a CT,LP,wasgiven pain meds and disch on pain meds (initially Dilaudid and an anti emetic and lastly Flexeril and an NSAID) with Dx tension ESCAMILLA A+O He reports that she developed a lot of neurologic Sx 6 months ago with progressively worsening Sx. She actually did not have a ESCAMILLA when she presented for her first visit 12/22 but was having worsening balance issues,general malaise,difficulty swallowing,tingling RUE and while in the ED she suddenly developed the ESCAMILLA. MRI 06/2010 She is currently nauseated and her ESCAMILLA has worsened greatly over the last few hours ED Triage - Leticia Anne RN - 12/24/2010 2:26 PM EDT Pt reports that she has had a ESCAMILLA x 3 days for which she has been eval @ [facility] x3. She had a CT,LP,wasgiven pain meds and disch on pain meds (initially Dilaudid and an anti emetic and lastly Flexeril and an NSAID) with Dx tension ESCAMILLA A+O He reports that she developed a lot of neurologic Sx 6 months ago with progressively worsening Sx. She actually did not have a ESCAMILLA when she presented for her first visit 12/22 but was having worsening balance issues,general malaise,difficulty swallowing,tingling RUE and while in the ED she suddenly developed the ESCAMILLA. MRI 06/2010 documented in this encounter Plan of Treatment Upcoming Encounters Date Type Specialty Care Team Description 02/24/2023 Hospital Encounter Gastroenterology Cristofer Armando MD [facility] GASTROENTEROLOGY [place], [place] [address] (Wo rk) Scheduled Procedures Name Priority Associated Diagnoses Date/Time COLONOSCOPY, DIAGNOSTIC H/O DIVERTICULITIS 10 DIALLO RVEILLANCE documented as of this encounter Procedures Procedure Name Priority Date/Time Associated Comments Diagnosis CT SCAN (SCAN) 12/28/2010 2:14 PM Results for this EDT procedure are i n the results section. LAB SCAN 12/28/2010 2:14 PM Results f or this EDT procedure are i n the results section. DIAGNOSTIC RADIOLOGY 12/28/2010 2:14 PM R esults for this SCAN EDT procedure are i n the results section. MRI BRAIN WWO CONTRAST Routine 12/25/2010 10:32 R esults for this (GENERIC) AM EDT procedure are i n the results section. LYME IGG & IGM Routine 12/25/2010 4:38 AM Results for this ANTIBODY EDT procedure are i n the results section. SYPHILIS ANTIBODY Routine 12/25/2010 4:38 AM Resu lts for this SCREEN WITH REFLEX EDT procedure are in the results section. HIV SCREEN, 4TH Routine 12/25/2010 4:38 AM Result s for this GENERATION EDT procedure are i n ([facility]/APD/[facility]) the resul ts section. CARDIOLIPIN ANTIBODY Routine 12/25/2010 4:38 AM R esults for this SCREEN EDT procedure are i n the results section. GINA Routine 12/25/2010 4:38 AM Results f or this EDT procedure are i n the results section. EKG 12-LEAD Routine 12/24/2010 11:58 Persistent Results for this PM EDT headaches procedure are i n the results section. FOLATE, RBC Routine 12/24/2010 9:30 PM Results f or this EDT procedure are i n the results section. VITAMIN B12 Routine 12/24/2010 9:30 PM Results f or this EDT procedure are i n the results section. CT CAROTIDS AND COLD SPRINGS Routine 12/24/2010 9:03 PM Results for this OF KANG W CONTRAST EDT procedu re are in the results section. DIFFERENTIAL, STAT 12/24/2010 6:00 PM Results for this AUTOMATED EDT procedure are i n the results section. SEDIMENTATION RATE Routine 12/24/2010 6:00 PM Res ults for this EDT procedure are i n the results section. CBC (WITH DIFF) STAT 12/24/2010 6:00 PM Result s for this EDT procedure are i n the results section. TSH STAT 12/24/2010 6:00 PM Results f or this EDT procedure are i n the results section. T4, FREE Routine 12/24/2010 6:00 PM Results f or this EDT procedure are i n the results section. MAGNESIUM Routine 12/24/2010 6:00 PM Results f or this EDT procedure are i n the results section. COMPREHENSIVE Routine 12/24/2010 6:00 PM Results for this METABOLIC PANEL EDT procedure ar e in (NON-FASTING) the results section. documented in this encounter Results SCAN DOC: CT SCAN (12/28/2010 2:14 PM EDT) Narrative 01/02/2011 11:46 AM EDT Procedure Note Provider, Scanning - 12/28/2010 2:14 PM EDT Scanning Provider MEDIA MGR SCAN EXT ORDR/RSLT SCAN DOC: DIAGNOSTIC RADIOLOGY (12/28/2010 2:14 PM EDT) Narrative 01/02/2011 11:46 AM EDT Procedure Note Provider, Scanning - 12/28/2010 2:14 PM EDT Scanning Provider MEDIA MGR SCAN EXT ORDR/RSLT SCAN DOC: LAB (12/28/2010 2:14 PM EDT) Narrative 12/28/2010 2:14 PM EDT Procedure Note Provider, Scanning - 12/28/2010 2:14 PM EDT Scanning Provider MEDIA MGR SCAN EXT ORDR/RSLT MRI brain with/WO contrast (12/25/2010 10:32 AM EDT) Anatomical Region Laterality Modality Head Magnetic Resonance Specimen (Source) Anatomical Collection Method Collection Time Re ceived Time Location / / Volume Laterality 12/25/2010 10:32 AM EDT Impressions 12/27/2010 10:37 AM EDT IMPRESSION: ?? Normal MR of the brain. ?? Film and interpretation reviewed by the attending Narrative 12/27/2010 10:37 AM EDT MR BRAIN WITH AND WITHOUT CONTRAST, 12/13 09/22: ?? CONTRAST: ?? Magnevist, 13 mL. ?? HISTORY: ??New type headache, several mo nths of imbalance and two weeks of right hand clumsiness. ??History of afib and H PL. ?? COMPARISON: ??None. ?? FINDINGS: ??The study is partially limit ed by motion artifact. ?? There are no masses, mass effect, and mi dline shift. ??Ventricles are symmetric and normal in size. ??No intraaxial flui d collections are present. ?? Diffusion-weighted imaging demonstrates no focal areas of increased signal intensity. ??Normal signal voids are pre sent within the vasculature. ?? Procedure Note Froy Giron MD - 12/27/2010Forma tting of this note might be different from the original. MR BRAIN WITH AND WITHOUT CONTRAST, 12/13 09/22: CONTRAST: Magnevist, 13 mL. HISTORY: New type headache, several david hs of imbalance and two weeks of right hand clumsiness. History of afib and HPL . COMPARISON: None. FINDINGS: The study is partially limited by motion artifact. There are no masses, mass effect, and mi dline shift. Ventricles are symmetric and normal in size. No intraaxial fluid collections are present. Diffusion-weighted imaging demonstrates no focal areas of increased signal intensity. Normal signal voids are prese nt within the vasculature. IMPRESSION IMPRESSION: Normal MR of the brain. Film and interpretation reviewed by the attending Ramirez Gold MD IMG MRI ORDERABLES Syphilis Antibody, IgG (12/25/2010 4:38 AM EDT) athologist Signature Syphilis IgG Negative Negative [facility] Specimen Anatomical Collection Method Collection Time Receive d Time (Source) Location / / Volume Laterality Blood specimen 12/25/2010 4:38 AM 011 7:52 (specimen) EDT AM EDT Ramirez Gold MD IMMUNOLOGY ORDERABLES Performing Organization Address [facility]/ZIP Code Phon e [address] [facility] Lyme IgG & IgM Antibody (12/25/2010 4:38 AM EDT) Analysis Performed At [facility] logist Tangerine Signature Lyme Screening Negative Negative CERNER Antibody [facility] Specimen Anatomical Collection Method Collection Time Receive d Time (Source) Location / / Volume Laterality Blood specimen 12/25/2010 4:38 AM 011 7:52 (specimen) EDT AM EDT Ramirez Gold MD IMMUNOLOGY ORDERABLES Performing Organization Address City/[facility]/ZIP Code Phon e Number [address] [facility] (ABNORMAL) Cardiolipin Antibody Screen (12/25/2010 4:38 AM EDT) athologist Signature Cardiolipin IgG <23 <=22 GPL CERNER unit(s) [facility] Comment: Ranges ? GPL ------- ? ------ Normal ?<23 Low Positive ? 23-35 Moderate Positive ?36 -50 High Positive ? >5 0 Cardiolipin IgM 12 (H) <=10 MPL unit(s) [facility] Comment: Ranges ?MPL ----- ?----- Normal ?<11 Low Positive ? 11-20 Moderate Positive ?21 -30 High Positive ? >3 0 Specimen Anatomical Collection Method Collection Time Receive d Time (Source) Location / / Volume Laterality Blood specimen 12/25/2010 4:38 AM 011 8:17 (specimen) EDT AM EDT Ramirez Gold MD IMMUNOLOGY ORDERABLES Performing Organization Address City/[facility] Code Phon e Number NAKITA [address] [facility] GINA (12/25/2010 4:38 AM EDT) P athologist Signature GINA Neg Neg [facility] Specimen Anatomical Collection Method Collection Time Receive d Time (Source) Location / / Volume Laterality Blood specimen 12/25/2010 4:38 AM 011 8:20 (specimen) EDT AM EDT Ramirez Gold MD IMMUNOLOGY ORDERABLES Performing Organization Address City/[facility] Phon e Number [address] [facility] HIV (12/25/2010 4:38 AM EDT) P athologist Signature HIV 1/2 Ab Negative [facility] Specimen Anatomical Collection Method Collection Time Receive d Time (Source) Location / / Volume Laterality Blood specimen 12/25/2010 4:38 AM 011 4:48 (specimen) EDT AM EDT Ramirez Gold MD IMMUNOLOGY ORDERABLES Performing Organization Address [facility]/[place] [address] [facility] MILLENNIUM EKG 12-LEAD Is a rhythm strip needed?: Yes; Reason for Exam:: Long Q-T Syndrome (12/24/2010 11:58 PMEDT) [facility] gist Method Time Signature Ventricular rate 70 BPM MUSE SYSTEM Atrial Rate 70 BPM MUSE SYSTEM P-R Interval 162 ms MUSE SYSTEM QRS Duration 96 ms MUSE SYSTEM Q-T Interval 400 ms MUSE SYSTEM QTC Calculated 432 ms MUSE SYSTEM (Bezet) Calculated P Bluebell 61 degrees MUSE SYSTEM Calculated R Bluebell -57 degrees MUSE SYSTEM Calculated T Bluebell 47 degrees MUSE SYSTEM INTERPRETATION Normal sinus rhythm MUSE SYSTEM Incomplete right bundle branch block Left anterior fascicular block Abnormal ECG Confirmed by MD KALE, SHERRIE (52) on 12/25/2010 1:09:16 P M Specimen Anatomical Collection Method Collection Time Receive d Time (Source) Location / / Volume Laterality 12/24/2010 11:58 12/25/2010 1:09 PM EDT PM EDT Ramirez Gold MD ECG ORDERABLES Performing Organization Address [facility]/ZIP Code Phon e Number MUSE SYSTEM Folate, RBC (12/24/2010 9:30 PM EDT) athologist Signature Hematocrit 41.9 34.0 - 45.0 CERNER % MILLENNIUM RBC Folate 858 460 - 1500 [facility]ER ng/mL [facility] Specimen Anatomical Collection Method Collection Time Receive d Time (Source) Location / / Volume Laterality Blood specimen 12/24/2010 9:30 PM 011 9:36 (specimen) EDT PM EDT Ramirez Gold MD CHEMISTRY ORDERABLES Performing Organization Address City/[facility]/ZIP [facility] [place] [address] [facility] MILLENNIUM Vitamin B12 (12/24/2010 9:30 PM EDT) athologist Signature Vitamin B-12 489 207 - 974 CERNER pg/mL [facility] Specimen Anatomical Collection Method Collection Time Receive d Time (Source) Location / / Volume Laterality Blood specimen 12/24/2010 9:30 PM 011 9:36 (specimen) EDT PM EDT Ramirez Gold MD CHEMISTRY ORDERABLES Performing Organization Address City/State/ZIP Code Phon e Number [place] [phone] CERNER MILLENNIUM CT CAROTIDS AND COLD SPRINGS OF KANG WITH CONTRAST (12/24/2010 9:03 PM EDT) Anatomical Region Laterality Modality Neck, Head Computed Tomography Specimen (Source) Anatomical Collection Method Collection Time Re ceived Time Location / / Volume Laterality 12/24/2010 9:03 PM EDT Addenda Addendum on 12/27/2010 4:46 PM EDT Addendum Begins 65 cc of Omnipaque-350 IV contrast admin istered, and CTA of the carotids and blackfeet of Kang was obtained. ? Addendum Ends Addendum on 12/27/2010 3:48 PM EDT Addendum Begins 65 cc of Omnipaque-350 IV contrast admin istered, and CTA of the carotids and blackfeet of Kang was obtained. ? Addendum Ends Impressions 12/25/2010 5:07 PM EDT IMPRESSION: No significant abnormality. ?? Film and interpretation reviewed by the attending Narrative 12/25/2010 5:07 PM EDT CTA OF THE CAROTIDS AND COLD SPRINGS OF KANG : INDICATION: ??65-year-old female with in tractable headache, three days, and balance issues of six months duration. ? ? TECHNIQUE: ??55 cc of Omnipaque-350 IV c ontrast administered, and CTA of the carotids and blackfeet of Kang was obtain ed. ??Coronal and sagittal reconstructions were made. ?? 3D reforma ts were performed at a separate workstation. ?? FINDINGS: ?? CTA CAROTIDS: ??The extracranial carotid and vertebral artery circulation is normal in course and caliber without foc al stenosis or aneurysmal dilatation. ?? 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 ?? CTA COLD SPRINGS OF KANG: ??There is mild bu lbous dilatation of the intradural right vertebral artery next to the origin of t he right PICA. ??There is mild narrowing of the proximal left PICA artery. ??The intracranial carotid circulation and basilar artery are normal in course and caliber. ??No aneurysmal or focal stenosis. ?? Procedure Note Edwin Christy MD - 12/27/2010Formatti ng of this note might be different from the original. CTA OF THE CAROTIDS AND COLD SPRINGS OF KANG : INDICATION: 65-year-old female with intr actable headache, three days, and balance issues of six months duration. TECHNIQUE: 55 cc of Omnipaque-350 IV con trast administered, and CTA of the carotids and blackfeet of Kang was obtain ed. Coronal and sagittal reconstructions were made. 3D reformats were performed at a separate workstation. FINDINGS: CTA CAROTIDS: The extracranial carotid a nd vertebral artery circulation is normal in course and caliber without foc al stenosis or aneurysmal dilatation. 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 CTA COLD SPRINGS OF KANG: There is mild bulb ous dilatation of the intradural right vertebral artery next to the origin of t he right PICA. There is mild narrowing of the proximal left PICA artery. The in tracranial carotid circulation and basilar artery are normal in course and caliber. No aneurysmal or focal stenosis. IMPRESSION IMPRESSION: No significant abnormality. Film and interpretation reviewed by the attending Charo Rosario MD IMG CT ORDERABLES MAGNESIUM (12/24/2010 6:00 PM EDT) athologist Signature Magnesium 0.95 0.69 - 1.07 CERNER mmol/L [facility] Specimen Anatomical Collection Method Collection Time Receive d Time (Source) Location / / Volume Laterality Blood specimen 12/24/2010 6:00 PM 011 6:37 (specimen) EDT PM EDT Jorge Kelly Jr., MD CHEMISTRY ORDERABLES Performing Organization Address City/State/[place] [address] CERNER MILLENNIUM (ABNORMAL) REFLEX LAB-A-DIFF (12/24/2010 6:00 PM EDT) [facility] gist Method Time Signature Neutrophils % 73.4 (H) 34.0 - CERNER 71.0 % MILLENNIUM Neutr Abs (ANC) 8.30 (H) 1.50 - CERNER 6.30 MILLENNIUM x10(3)/mc L Lymphocytes % 21.4 19.0 - CERNER 53.0 % MILLENNIUM Lymphocytes Abs 2.4 1.0 - 3.6 CERNER x10(3)/mc MILLENNIUM L Monocytes % 4.7 4.0 - CERNER 13.0 % MILLENNIUM Monocyte Abs 0.5 0.2 - 1.0 CERNER x10(3)/mc MILLENNIUM L Eosinophils % 0.3 0.0 - 7.0 CERNER % MILLENNIUM Eosinophils Abs 0.0 0.0 - 0.5 CERNER x10(3)/mc MILLENNIUM L Basophils % 0.1 0.0 - 2.0 CERNER % MILLENNIUM Basophils Abs 0.0 0.0 - 0.2 CERNER x10(3)/mc MILLENNIUM L Immature Gran % 0.10 0.00 - CERNER 0.66 % MILLENNIUM Comment: Immature granulocytes(IG's)percentage an d absolute count will include metamyelocytes, myelocytes, and promyelo cytes. Blood smears from CBCs yielding IG's will be scanned manually for concor dance. If this scan disagrees with the automated IG or if promyelocytes are not ed, a manual differential will be performed. Marsha Gran Abs 0.01 0.00 - 0.05 x10(3)/mcL CER NER MILLENNIUM Specimen Anatomical Collection Method Collection Time Receive d Time (Source) Location / / Volume Laterality Blood specimen 12/24/2010 6:00 PM 011 6:36 (specimen) EDT PM EDT Jorge Kelly Jr., MD HEMATOLOGY ORDERABLES Performing Organization Address City/State/[place] [address] CERN[facility] MILLENNIUM T4, free (12/24/2010 6:00 PM EDT) P athologist Signature Free T4 1.30 0.90 - 1.60 CERNER ng/dL [facility] Specimen Anatomical Collection Method Collection Time Receive d Time (Source) Location / / Volume Laterality Blood specimen 12/24/2010 6:00 PM 011 6:36 (specimen) EDT PM EDT Jorge Kelly Jr., MD CHEMISTRY ORDERABLES Performing Organization Address City/State/ZIP Code Phon e Number [address] [facility] MILL[facility] Sedimentation rate (12/24/2010 6:00 PM EDT) athologist Signature Sed Rate 8 0 - 20 CERNER mm/hr [facility] Specimen Anatomical Collection Method Collection Time Receive d Time (Source) Location / / Volume Laterality Blood specimen 12/24/2010 6:00 PM 011 6:36 (specimen) EDT PM EDT Jorge Kelly Jr., MD HEMATOLOGY ORDERABLES Performing Organization Address City/[facility]/ZIP Code Phon e Number [address] [facility] TSH (12/24/2010 6:00 PM EDT) athologist [facility] TSH 2.92 0.27 - 4.20 CERNER mcIU/mL [facility] Specimen Anatomical Collection Method Collection Time Receive d Time (Source) Location / / Volume Laterality Blood specimen 12/24/2010 6:00 PM 011 6:36 (specimen) EDT PM EDT Jorge Kelly Jr., MD CHEMISTRY ORDERABLES Performing Organization Address City/[facility]/ZIP Code Phon e Number [address] [facility] ([facility]NORMAL) Comprehensive metabolic panel (non-fasting) (12/24/2010 6:00 PM EDT) athologist Signature Glucose Lvl 102 60 - 199 CERNER mg/dL [facility] Comment: Diabetes: >=200 mg/dL plus symp toms BUN 7 (L) 8 - 18 mg/dL CERNER MILLENNIUM Creatinine 0.63 (L) 0.70 - 1.20 mg/dL CERNER MILL ENNIUM Sodium 138 135 - 145 mmol/L CERNER ANABELA NIUM Potassium 3.8 3.5 - 5.0 mmol/L CERNER ANABELA NIUM Comment: Please note: ??Patients with WBC >100,00 0 may have falsely elevated Potassium levels. ??For accurate Potassium quantif ication in these patients send serum separator tube (gold top) for subsequent determinations. ??Contact the Clinical Chemistry Laboratory if there are any qu estions. Chloride 99 98 - 107 mmol/L CERNER MILLENN IUM CO2 30 22 - 31 mmol/L CERNER MILLENNI UM Anion Gap 9 5 - 15 mmol/L CERNER MILLENNIU M Calcium 10.5 8.5 - 10.5 mg/dL CERNER ANABELA NIUM Total Protein 7.3 6.4 - 8.3 gm/dL CERNER MIL LENNIUM Albumin 4.4 3.2 - 5.2 gm/dL CERNER MILLENN IUM AST Not Perf 0 - 30 unit/L CERNER MILLENNIU M Comment: Unable to quantitate due to sample hemol ysis. ??Sample redraw suggested. called to gem rodriguez at 12/24/10 19:1 8 by gey ALT 12 0 - 30 unit/L CERNER MILLENNIU M Alk Phos 80 40 - 104 unit/L CERNER MILLENN IUM Total Bilirubin 0.4 0.2 - 1.3 mg/dL CERNER M ILLENNIUM Bili, Direct 0.1 0.0 - 0.3 mg/dL CERNER MILL ENNIUM Estimated GFR >60 >=60 CERNER MILLENNIU M Comment: The National Kidney Disease Education Pr ogram (NKDEP) has recommended all laboratories report estimated GFR (eGFR) along with plasma creatinine measurements to assist you with recognit ion of early kidney disease. Caveats: ??Plasma creatinine should be a t steady-state (unchanged within the past week). For patient s multiply eGFR by 1.2.MDRD equation has not been validated for pediatric pat ients and is only valid for patients with age >= 18 years. At present, NKDEP does NOT recommend usi ng the MDRD equation for drug dosing purposes and pharmacists should continue to use their current dosing methods. In addition, numerical eGFR values great er than 60 ml/min/1.73 square meters should be treated as > 60, and not an ex act number due to greater inaccuracies at these higher values. Per NKDEP, they classify normal renal function as any GFR >60ml/min/1.73 square meters; chronic kidney disease wh en GFR <60, and renal failure when GFR <15. ??This calculation may not be valid for patients with atypical muscle mass (very lean or obese), acute renal failur e, and in patients with diabetic kidney disease. References: http://nkdep.nih.gov/resources/NKDEP_Sug gestn4Labs_0606_508.pdf http://www.kidney.org/professionals/kls/ pdf/faq_gfr.pdf Specimen Anatomical Collection Method Collection Time Receive d Time (Source) Location / / Volume Laterality Blood specimen 12/24/2010 6:00 PM 011 6:36 (specimen) EDT PM EDT Jorge Kelly Jr., MD CHEMISTRY ORDERABLES Performing Organization Address City/State/ZIP Code Phon e Number [place] [phone] CERNER MILLENNIUM (ABNORMAL) CBC (with Diff) (12/24/2010 6:00 PM EDT) P athologist Signature WBC 11.3 (H) 4.0 - 10.0 CERNER x10(3)/mcL MILLENNIUM RBC 5.42 (H) 3.93 - CERNER 5.22 MILLENNIUM x10(6)/mcL Hemoglobin 15.2 11.2 - CERNER 15.7 gm/dL MILLENNIUM Hematocrit 46.0 (H) 34.0 - CERNER 45.0 % MILLENNIUM MCV 84.9 79.0 - CERNER 94.0 fL MILLENNIUM MCH 28.0 26.6 - CERNER 32.2 pg MILLENNIUM MCHC 33.0 32.0 - CERNER 36.5 gm/dL MILLENNIUM Platelets 329 145 - 370 CERNER x10(3)/mcL MILLENNIUM RDWSD 40.6 35.0 - CERNER 46.0 fL MILLENNIUM RDWCV 13.1 10.9 - CERNER 14.4 % MILLENNIUM MPV 11.0 9.0 - 12.0 CERNER fL MILLENNIUM Specimen Anatomical Collection Method Collection Time Receive d Time (Source) Location / / Volume Laterality Blood specimen 12/24/2010 6:00 PM 011 6:36 (specimen) EDT PM EDT Jorge Kelly Jr., MD HEMATOLOGY ORDERABLES Performing Organization Address City/State/ZIP Code Phon e Number [place] [phone] [facility] documented in this encounter Visit Diagnoses Diagnosis Persistent headaches Headache Headache(784.0) Headache documented in this encounter Administered Medications Inactive Administered Medications - up to 3 most recent administrations Medication Order MAR Action Action Date Dose Rate Site caffeine-sodium benzoate 500 New Bag 12/25/2010 10:45 AM EDT 500 m g 1002 mL/hr mg in sodium chloride 0.9% 1,002 mL 500 mg, Intravenous, at 1,002 mL/hr, ONCE, On Sat12/25/10 at 1000, 1 dose calcium carbonate (TUMS) chewable tablet Given 12/25/2010 11 :40 PM EDT 1,000 mg 1,000 mg 1,000 mg, Oral, 3 TIMES DAILY PRN, Starting on Sat12/25/10 at 2313, Until Sat12/26/10 at 1608, Heartburn, Routine clonAZEpam (KLONOPIN) disintegrating tablet Given 12/13 11:20 AM EDT 0.25 mg 0.25 mg 0.25 mg, Oral, 2 TIMES DAILY PRN, Starting on Sat12/26/10 at 0106, Until Sat12/26/10 at 1608, Anxiety, insomnia, STAT Given 12/26/2010 1:48 AM EDT 0.25 mg diaZEPam (VALIUM) 5 mg tablet 1 dose, Starting on Sat12/24/10 at 1934, Until 12/13 at 1937, EMME QUINTERO: Cabinet Override diaZEPam (VALIUM) tablet 10 mg Given 12/24/2010 7:37 PM EDT 10 mg 10 mg, Oral, ONCE, 1 dose, On Sat12/24/10 at 2000, Routine dihydroergotamine (DHE) injection 0.5 mg Given 12/25/2010 8:50 AM EDT 0.5 mg 0.5 mg, Intravenous, 3 TIMES DAILY, First dose on Sat12/25/10 at 0600, Until Discontinued, Modified Gela Protocol Please administer the following regimen TID: Diphenhydramine 25mg PO followed in about one hour by metoclopramide 10mg IV followed in 15 minutes by 0.5 mg of dihydroergotamine., Routine Given 12/25/2010 1:08 AM EDT 0.5 mg dihydroergotamine (DHE) injection 1 mg Given 12/25/2010 3:00 PM EDT 1 mg 1 mg, Intravenous, 3 TIMES DAILY, First dose (after last modification) on Sat12/25/10 at 1500, Until Discontinued, Modified Gela Protocol Please administer the following regimen TID: Diphenhydramine 25mg PO followed in about one hour by metoclopramide 10mg IV followed in 15 minutes by 1mg of dihydroergotamine., Routine dihydroergotamine (DHE) injection 1 mg Given 12/26/2010 10:17 AM EDT 1 mg 1 mg, Intravenous, 3 TIMES DAILY, First dose (after last modification) on Sat12/25/10 at 2215, Until Discontinued, Modified Gela Protocol Please administer the following regimen TID: Diphenhydramine 25mg PO followed in about one hour by metoclopramide 10mg IV followed in 15 minutes by 1mg of dihydroergotamine., Routine Given 12/25/2010 10:24 PM EDT 1 mg diphenhydrAMINE (BENADRYL) 50 mg/mL Given 12/24/2010 6:35 PM EDT 12.5 mg injection 1 dose, Starting on 12/24/10 at 1834, Until 12/24/10 at 1835, SHAHRZAD NORIEGA: Cabinet Override diphenhydrAMINE (BENDARYL) tablet 25 mg Given 12/25/2010 3:00 PM EDT 25 mg 25 mg, Oral, 3 TIMES DAILY, First dose on Sat12/25/10 at 0000, Until Discontinued, Modified Gela Protocol Please administer the following regimen TID: Diphenhydramine 25mg PO followed in about one hour by metoclopramide 10mg IV followed in 15 minutes by 1mg of dihydroergotamine., Routine Given 12/25/2010 8:00 AM EDT 25 mg Given 12/25/2010 12:00 AM EDT 25 mg diphenhydrAMINE (BENDARYL) tablet 25 mg Given 12/26/2010 9:10 AM EDT 25 mg 25 mg, Oral, 3 TIMES DAILY, First dose (after last modification) on 6/13/11 at 2100, Until Discontinued, Modified Gela Protocol Please administer the following regimen TID: Diphenhydramine 25mg PO followed in about one hour by metoclopramide 10mg IV followed in 15 minutes by 1mg of dihydroergotamine., Routine Given 12/25/2010 8:59 PM EDT 25 mg gadopentetate dimeglumine (MAGNEVIST) Given 12/25/2010 10:20 AM EDT 13 mLs injection 12 mL 12 mL (0.2 mL/kg/dose ? 59.5 kg), Intravenous, ONCE PRN, 1 dose, Starting on Sat12/25/10 at 0903, Until Sat12/25/10 at 1020, Per Protocol, Routine iohexol (OMNIPAQUE) 350 mg/mL injection Given 12/24/2010 8:57 PM EDT 22,750 mg 22,750 mg 22,750 mg (65 mL), Intravenous, ONCE PRN, 1 dose, Starting on Sat12/24/10 at 2056, Until Sat12/24/10 at 205, Per Protocol, Routine ketorolac (TORADOL) injection 30 mg Given 12/24/2010 6:20 PM EDT 30 mg 30 mg, Intravenous, ONCE, 1 dose, On Sat12/24/10 at 1830, Routine LORazepam (ATIVAN) 2 mg/mL injection 1 dose, Starting on Sat12/25/10 at 0903, Until 12/13 at 0915, JARAD RIVERO: Cabinet Override LORazepam (ATIVAN) injection 2 mg Given 12/25/2010 9:15 AM EDT mg 2 mg, Intravenous, ONCE, 1 dose, On Sat12/25/10 at 0930, Please administer prior to MRI, STAT LORazepam (ATIVAN) injection 2 mg Given 12/25/2010 9:30 AM EDT mg 2 mg, Intravenous, ONCE, 1 dose, On Sat12/25/10 at 0945, Prior to MRI, Routine magnesium sulfate 1g in dextrose 5% Given 12/24/2010 1:55 AM EDT 1 g 100 mL/hr 100mL 1 g, Intravenous, ONCE, 1 dose, On Sat12/24/10 at 2245, Administer over 60 Minutes metoclopramide (REGLAN) injection 10 mg Given 12/25/2010 3:00 PM EDT 10 mg 10 mg, Intravenous, 3 TIMES DAILY, First dose on Sat12/25/10 at 0600, Until Discontinued, Modified [facility] Protocol Please administer the following regimen TID: Diphenhydramine 25mg PO followed in about one hour by metoclopramide 10mg IV followed in 15 minutes by 1mg of dihydroergotamine., Routine Given 12/25/2010 8:15 AM EDT 10 mg Given 12/25/2010 12:39 AM EDT 10 mg metoclopramide (REGLAN) injection 10 mg Given 12/26/2010 10:17 AM EDT 10 mg 10 mg, Intravenous, 3 TIMES DAILY, First dose (after last modification) on Sat12/25/10 at 2200, Until Discontinued, Modified Gela Protocol Please administer the following regimen TID: Diphenhydramine 25mg PO followed in about one hour by metoclopramide 10mg IV followed in 15 minutes by 1mg of dihydroergotamine., Routine Given 12/25/2010 10:08 PM EDT 10 mg prochlorperazine (COMPAZINE) injection 1 0 mg Given 12/24/2010 6:20 PM EDT 10 mg 10 mg, Intravenous, ONCE, 1 dose, On Sat12/24/10 at 1830, Routine propranolol (INDERAL LA) SR Capsule 60 m g Given 12/26/2010 9:10 AM EDT 60 mg 60 mg, Oral, 2 TIMES DAILY, First dose (after last modification) on Sat12/25/10 at 2100, Until Discontinued, Hold for SBP <90, HR <60, Routine Given 12/25/2010 8:51 PM EDT 60 mg propranolol (INDERAL LA) SR Capsule 80 m g Given 12/25/2010 8:32 AM EDT 80 mg 80 mg, Oral, DAILY, First dose on Sat12/25/10 at 0900, Until Discontinued, Hold for SBP <90, HR <60, Routine senna-docusate (PERICOLACE) 8.6-50 mg per Given 2010 9:10 AM EDT 2 tablets tablet 1-4 tablet 1-4 tablet, Oral, 2 TIMES DAILY, First dose on Sat12/25/10 at 2345, Until Discontinued, Start with 1 tablet or liquid equivalent orally twice daily and titrate up to achieve: 1. One bowel movement at least every 48 hours, AND 2. Without straining, Routine Given 12/25/2010 11:40 PM EDT 2 tablets sodium chloride 0.9% 1,000 mL IV bolus Given 12/24/2010 6:30 PM EDT 1 L 1 L, Intravenous, ONCE, 1 dose, On 12/24/10 at 1830 sodium chloride 0.9% infusion New Bag 12/25/2010 7:30 PM EDT 100 mL/hr 100 mL/hr 100 mL/hr, Intravenous, CONTINUOUS, Starting on Sat12/25/10 at 0945, Until Sat12/26/10 at 1608 documented in this encounter Active and Recently Administered Medications Times are shown in EDT. Scheduled Medication Order 12/24/2010 12/25/2010 12/26/2010 caffeine-sodium benzoate 500 mg in sodium chloride 0.9% 1,00 2 mL (COMPLETED) 1045 (New Bag - Provider: Jarad Rivero RN) 500 mg, Intravenous, ONCE, 1 dose, Sat12/25/10 at 1000, for 60 M inutes diaZEPam (VALIUM) tablet 10 mg (COMPLETED) 193 (Given - Provider: Meme Gaviria RN)1999 (Due) 10 mg, Oral, ONCE, 1 dose, [place] 12/24/10 at 2000, Routine dihydroergotamine (DHE) injection 0.5 mg (CANCELED) 0108 (Given - Provider: Flor Caldwell RN)0850 (Given - Provider: Jarad Rivero RN) 0.5 mg, Intravenous, 3 TIMES DAILY, Firs t dose on Sat12/25/10 at 0600, Until Discontinued, Modified Gela Protocol Please administer the following regimen TID: Diphenhydramine 25mg PO followed in about one hour by metoclopramide 10mg IV foll owed in 15 minutes by 0.5 mg of dihydroergotamine., Routine dihydroergotamine (DHE) injection 1 mg (CANCELED) 1500 (Given - Provider: Jarad Rivero RN) 1 mg, Intravenous, 3 TIMES DAILY, First dose on Sat12/25/10 at 1500, Until Discontinued, Modified [facility] Protocol Please administer the following regimen TID: Diphenhydramine 25mg PO followed in about o ne hour by metoclopramide 10mg IV follow ed in 15 minutes by 1mg of dihydroergotamine., Routine dihydroergotamine (DHE) injection 1 mg (CANCELED) 2223 (Given - Provider: Susan Costa RN) 1017 (Given - Provider: Saba Lim RN ) 1 mg, Intravenous, 3 TIMES DAILY, First dose on Sat12/25/10 at 2215, Until Discontinued, Modified Gela Protocol Please administer the following regimen TID: Diphenhydramine 25mg PO followed in about o ne hour by metoclopramide 10mg IV follow ed in 15 minutes by 1mg of dihydroergotamine., Routine diphenhydrAMINE (BENDARYL) tablet 25 mg (CANCELED) 0000 (Given - Provider: Flor Caldwell RN)0800 (Given - Provider: Jarad Rivero RN)1500 (Given - Provider: Jarad Rivero RN) 25 mg, Oral, 3 TIMES DAILY, First dose o n Sat12/25/10 at 0000, Until Discontinued, Modified [facility]ela Protocol Please administer the following regimen TID: Diphenhydramine 25mg PO followed in about one dominick r by metoclopramide 10mg IV followed in 15 minutes by 1mg of dihydroergotamine., Routine diphenhydrAMINE (BENDARYL) tablet 25 mg (CANCELED) 2058 (Given - Provider: Susan Costa RN) 09 (Given - Provider: Saba Lim RN ) 25 mg, Oral, 3 TIMES DAILY, First dose o n Sat12/25/10 at 2100, Until Discontinued, Modified [facility]ela Protocol Please administer the following regimen TID: Diphenhydramine 25mg PO followed in about one dominick r by metoclopramide 10mg IV followed in 15 minutes by 1mg of dihydroergotamine., Routine ketorolac (TORADOL) injection 30 mg (COMPLETED) 1820 ( Given - Provider: Shahrzad Noriega RN) 30 mg, Intravenous, ONCE, 1 dose, Sat12/24/10 at 1830, Routine LORazepam (ATIVAN) injection 2 mg (COMPLETED) 0915 (Given - Provider: Jarad Rivero RN) 2 mg, Intravenous, ONCE, 1 dose, Mon 12/13 09/22 at 0930, Please administer prior to MRI, STAT LORazepam (ATIVAN) injection 2 mg (COMPLETED) 929 (Given - Provider: Jarad Rivero, ADITHYA) 2 mg, Intravenous, ONCE, 1 dose, Sat12/25/10 at 0945, Prior to M RI, Routine magnesium sulfate 1g in dextrose 5% 100mL (COMPLETED) 0155 (Given - Provider: Flor Caldwell RN - Comment: med not availlable given at 0155) 1 g, Intravenous, ONCE, 1 dose, 12/24/10 at 2245, for 60 Francy yohan metoclopramide (REGLAN) injection 10 mg (CANCELED) 38 (Given - Provider: Flor Caldwell, ADITHYA)0815 (Given - Provider: Jarad Rivero, ADITHYA)1500 (Given - Provider: Jarad Rivero RN) 10 mg, Intravenous, 3 TIMES DAILY, First dose on Sat12/25/10 at 0600, Until Discontinued, Modified [facility] Protocol Please administer the following regimen TID: Diphenhydramine 25mg PO followed in about one hour by metoclopramide 10mg IV follo wed in 15 minutes by 1mg of dihydroergotamine., Routine metoclopramide (REGLAN) injection 10 mg (CANCELED) 2207 (Given - Provider: Susan Costa RN) 101 (Given - Provider: Saba Lim RN ) 10 mg, Intravenous, 3 TIMES DAILY, First dose on Sat12/25/10 at 2200, Until Discontinued, Modified [facility] Protocol Please administer the following regimen TID: Diphenhydramine 25mg PO followed in about one hour by metoclopramide 10mg IV follo wed in 15 minutes by 1mg of dihydroergotamine., Routine prochlorperazine (COMPAZINE) injection 10 mg (COMPLETE D) 1819 (Given - Provider: Shahrzad Noriega RN) 10 mg, Intravenous, ONCE, 1 dose, 12/24/10 at 1830, Routine propranolol (INDERAL LA) SR Capsule 60 mg 2050 (Given - Provider: Susan Costa RN) 909 (Given - Provider: Saba Lim RN ) 60 mg, Oral, 2 TIMES DAILY, First dose o n Sat12/25/10 at 2100, Until Discontinued, Hold for SBP <90, HR <60, Routine propranolol (INDERAL LA) SR Capsule 80 mg (CANCELED) 0832 (Given - Provider: Jarad Rivero, ADITHYA) 80 mg, Oral, DAILY, First dose on 27/05 at 0900, Until Discontinued, Hold for SBP <90, HR <60, Routine senna-docusate (PERICOLACE) 8.6-50 mg per tablet 1-4 tablet (CANCELED) 2340 (Given - Provider: Susan Costa RN) 0910 (Given - Provider: Saba Lim RN) 1-4 tablet, Oral, 2 TIMES DAILY, First d ose on Sat12/25/10 at 2345, Until Discontinued, Start with 1 tablet or liquid equivalent orally twice daily and titrate up to achieve: 1. One bowel movement at le ast every 48 hours, AND 2. Without straining, Routine sodium chloride 0.9% 1,000 mL IV bolus (COMPLETED) 183 0 (Given - Provider: Shahrzad Noriega, ADITHYA) 1 L, Intravenous, ONCE, 1 dose, 12/24/10 at 1830 Continuous Medication Order 12/24/2010 12/25/2010 12/26/2010 sodium chloride 0.9% infusion (CANCELED) 0945 (Due)1930 (New Bag - Provider: Susan Costa RN - Comment: ? given by Jarad Montes new bag up) 0122 (Stopped - Provider: Susan Costa RN - Comment: HL clifford Shaw MD order) 100 mL/hr, at 100 mL/hr, Intravenous, CO NTINUOUS, Starting Sat12/25/10 at 0945, Until Sat12/26/10 at 1608 PRN Medication Order 12/24/2010 12/25/2010 12/26/2010 calcium carbonate (TUMS) chewable tablet 1,000 mg (CANCELED) 2340 (Given - Provider: Susan Costa RN) 1,000 mg, Oral, 3 TIMES DAILY PRN, Start ing Sat12/25/10 at 2313, Until Sat12/26/10 at 1608, Heartburn, Routine clonAZEpam (KLONOPIN) disintegrating tablet 0.25 mg (CANCELED) 0148 (Given - Provider: Susan Costa RN)1120 (Given - Provider: Saba Lim, RN) 0.25 mg, Oral, 2 TIMES DAILY PRN, Starti ng Tue 12/26/10 at 0106, Until 12/26/10 at 1608, Anxiety, insomnia, STAT gadopentetate dimeglumine (MAGNEVIST) injection 12 mL (COMPL ETED) 1020 (Given - Provider: Zenaida Carter) 0.2 mL/kg ? 59.5 kg = 12 mL, Intravenous, ONCE PRN, 1 dose, Starting 12/25/10 at 0903, Until 12/25/10 at 2359, Per Protocol, Routine iohexol (OMNIPAQUE) 350 mg/mL injection 22,750 mg (COM PLETED) 2056 (Given - Provider: Arden Buckley) 65 mL = 22,750 mg, Intravenous, ONCE PRN , 1 dose, Starting 12/24/10 at 2056, Until 12/24/10 at 205, Per Protocol, Routine No Frequency Medication Order 12/24/2010 12/25/2010 12/26/2010 diphenhydrAMINE (BENADRYL) 50 mg/mL injection (COMPLET ED) 1835 (Given - Provider: Shahrzad Noriega, ADITHYA) 1 dose, Starting 12/24/10 at 1834, Un til 12/24/10 at 1835, SHAHRZAD NORIEGA: Cabinet Override documented in this encounter Care Teams Director Of Security Relationship Specialty Start Date End Date Nakita Russell MD PCP - General 06/06/10 08/17/13 [facility] [address] [place] [address] [place] [address] documented as of this encounter
--- OUTSIDE RECORDS SUMMARY | 2022-02-08 09:09 | XMS_ITS | Encounter Summary ---
:1945 [place] [address] Care Team Providers Name Role Phone Unavailable Primary Care Provider Unavailable Encounter Details Date Type Department Care Team Description 05/15/2010 Office Visit Plastic Surgery at [facility] Joann Harris MD [facility] [place] [address] PLASTIC SURGERY [phone] [place], [place] [address] (Wo rk) Social History Tobacco Use Types Packs/Day Years Used Date Never Assessed Sex Assigned at Date Recorded Not on file documented as of this encounter Plan of Treatment Upcoming Encounters Date Type Specialty Care Team Description 02/24/2023 Hospital Encounter Gastroenterology Cristofer Armando MD [facility] GASTROENTERIMANI [place], [place] [address] (Wo rk) Scheduled Procedures Name Priority Associated Diagnoses Date/Time COLONOSCOPY, DIAGNOSTIC H/O DIVERTICULITIS 10 DIALLO RVEILLANCE documented as of this encounter Visit Diagnoses Not on filedocumented in this encounter
--- OUTSIDE RECORDS SUMMARY | 2022-02-08 09:13 | XMS_ITS | Encounter Summary ---
:1945 Author Organization [facility] Address [address] [place] [address] Care Team Providers Name Role Phone Provider, Unknown Unavailable Unavailable Encounter Details Date Type Department Care Team Description 09/02/2015 - Emergency [facility] Emergency Depart ment Sara Us MD [address] [place] [id number] 09/03/2015 22 [facility] Tom Lima MD 22 [place] [address] [place] [address]4 [facility] [phone] Social History Tobacco Use Types Packs/Day Years Used Date Never Smoker Alcohol Use Standard Drinks/Week Comments Yes 0 (1 standard drink = 0.6 oz pure alcoho l) socailly Alcohol Habits Answer Date Recorded How often do you have a drink containing alcohol? Not asked How many drinks containing alcohol do you have on a typical Not asked day when you are drinking? How often do you have six or more drinks on one occasion? No t asked Comment: socailly 09/02/2015 Substance Use Types Use/Week Comments No Sex Assigned at Date Recorded Not on file documented as of this encounter Last Filed Vital Signs Vital Sign Reading Time Taken Comments Blood Pressure 122/63 09/03/2015 1:47 AM EST Pulse 66 09/03/2015 1:47 AM EST Temperature 36.5 ??C (97.7 ??F) 09/02/2015 10:33 PM EST Respiratory Rate 16 09/03/2015 1:47 AM EST Oxygen Saturation 90% 09/03/2015 1:47 AM EST Inhaled Oxygen Concentration 90% 09/03/2015 1:47 AM EST Weight - - Height - - Body Mass Index - - documented in this encounter Functional Status Functional Status Response Date of Assessment Status Are you deaf or do you have serious difficulty No 0 09/02/2015 Active hearing? Are you blind or do you have serious difficulty No 09/02/2015 Active seeing, even when wearing glasses? Do you have serious difficulty walking or climbing No 09/02/[address]? (5 years old or older) Do you have difficulty dressing or bathing? (5 No 0 09/02/2015 Active years old or older) Because of a physical, mental, or emotional No 08/15 Active condition, do you have difficulty doing errands alone such as visiting a doctor's office or shopping? (15 years old or older) Cognitive Status Response Date of Assessment Status Because of a physical, mental, or emotional No 08/15 Active condition, do you have serious difficulty concentrating, remembering, or making decisions? (5 years old or older) documented as of this encounter Discharge Instructions AttachmentsThe following attachments cannot be sent through Care Everywhere.HEAD OR FACE PAIN (KAZAKH)documented in this encounter ED Notes Paul Jarvis MD - 09/02/2015 8:22 PM EST Images from the original note were not included. History No chief complaint on file. Chief Complaint: Left jaw pain I saw this patient with the resident physician Dr. Johnston. I have seen and examined the patient myself and am responsible for the care plan. HPI This is a 69 y.o. female who presents with a c/o left jaw pain since yesterday morning. PMH: MAC pneumonia, Per patient, I woke up with mild left jaw pain yesterday morning. This was dull. It stayed steady throughout the day. It hasn't gone away. It now radiates from the TMJ joint to her submandibular space.No changes in her hearing or vision. This is new for her. She lives in [place] and just arrived in [place] today. Can barely open her mouth at the moment. Patient complains of pain in the left jaw Timing:started yesterday Quality: dull Severity: Started as a 6. Was an 8 earlier Radiation: None Associated symptoms: hurts to eat, chew, swallow Exacerbating factors: opening mouth Alleviating factors: not opening mouth. History reviewed. No pertinent past medical history. History reviewed. No pertinent past surgical history. No family history on file. History Substance Use Topics ??? Smoking status: Never Smoker ??? Smokeless tobacco: None ??? Alcohol Use: Yes Comment: socailly Review of Systems Constitutional: Negative for fever, chills and fatigue. HENT: See HPI Eyes: Negative for photophobia and visual disturbance. Respiratory: Negative for cough and shortness of breath. Cardiovascular: Negative for chest pain and palpitations. Gastrointestinal: Negative for nausea, vomiting, abdominal pain and diarrhea. Musculoskeletal: Negative for back pain, neck pain and neck stiffness. Neurological: Negative. Negative for weakness and headaches. Hematological: Negative. All other systems reviewed and are negative. Physical Exam BP 109/54 mmHg Pulse 69 Temp(Src) 36.5 ??C (97.7 ??F) (Oral) Resp 16 SpO2 94% Physical Exam Constitutional: She is oriented to person, place, and time. She appears well- developed and well-nourished. No distress. HENT: Head: Normocephalic and atraumatic. Right Ear: External ear normal. Left Ear: External ear normal. Mouth: Normal oropharynx, dentition, and parotid duct. Normal parotid gland. Normal neck, submandibular, and submental space. Eyes: Conjunctivae and EOM are normal. Pupils are equal, round, and reactive to light. No scleral icterus. Neck: Neck supple. Cardiovascular: Normal rate and regular rhythm. Pulmonary/Chest: Effort normal and breath sounds normal. Abdominal: Soft. Bowel sounds are normal. There is no tenderness. Musculoskeletal: She exhibits no edema. Neurological: She is alert and oriented to person, place, and time. Skin: Skin is warm and dry. She is not diaphoretic. Nursing note and vitals reviewed. Procedures Procedures completed include: None Pertinent diagnostic study results include: EKG: SR at 76 Diagnostic Imaging: panorex, CT neck and jaw MDM (ED Course and Disposition) MDM Number of Diagnoses or Management Options This is a 69 y.o. female who presents with a c/o jaw pain x 2 days. Exam suggestive of TMJ disruption vs parotitis. No evidence of abscess, dental abscess, or rash to suggest (zoster, langston xiong). Consider carotid dissection, but tenderness on exam certainly goes against this. No evidence of temporal arteritis as tenderness is not on this. Panorex negative. CTA head and face ordered. Case signed out to oncoming team. Baldo Johnston MD [phone] 10:44 PM Critical Care Time: None Current Condition: Stable This is a 69-year-old female with history of TMJ pain and a feeling that her do not fit together as usual. She did have a recent dentist visit 2 days ago, but pain did not start until after this visit.Panorex was unremarkable. No difficulty breathing or swallowing on exam and no intraoral swelling noted on exam. No rashes on the skin. Will further evaluated with CAT scan to evaluate TMJ, jaw and surrounding soft tissues of vessels. This was ordered and currently pending. Sara Us MD 09/02/[address] shows asymmetry in the TMJs but not obvious dislocation. On my evaluation the patient is comfortable, talking, does have limited ROM of the jaw due to discomfort. There is not abscess or evidence ofdeep space infection. I do not think that manipulation of her jaw in the ED will be of benefit. She will follow up with her dentist. Jorge Jarvis MD [phone] 1:34 AM Paul Jarvis MD Resident 09/03/15 0134 Sammie Olivares RN - 09/02/2015 8:11 PM EST Patient spouse at bedside for support. Patient sitting up in stretcher, denies chest pain, denies SOB, no pain except localized left jaw bone pain Jorge Galloway RN - 09/02/2015 6:51 PM EST Pt woke 2 days ago with left jaw pain. Progressively got better throughout the day. Worse when she woke this morning. Denies n/v/d/cp/sob/f. Pain worse with movement. No further symptoms. aYolanda Villalobos RN - 09/02/2015 6:20 PM EST Patient to triage via ambulation with cc of left jaw pain. Radiates to throat and neck. Patient is alert and oriented x3 without distress. documented in this encounter Plan of Treatment Not on filedocumented as of this encounter Procedures Procedure Name Priority Date/Time Associated Diagnosis Comme nts CT ANGIOGRAM NECK STAT 09/02/2015 11:37 PM Res ults for this EST procedure are i n the results section. BASIC METABOLIC STAT 09/02/2015 10:50 PM Resul ts for this PANEL EST procedure are i n the results section. XR PANOREX STAT 09/02/2015 9:21 PM Results f or this EST procedure are i n the results section. EKG 12-LEAD STAT 09/02/2015 7:18 PM EST documented in this encounter Results CT Angiogram Neck (09/02/2015 11:37 PM EST) Anatomical Region Laterality Modality Neck Computed Tomography Specimen (Source) Anatomical Collection Method Collection Time Re ceived Time Location / / Volume Laterality 09/02/2015 11:30 PM EST Narrative [facility] RADIOLOGY - 09/03/2015 12:39 AM EST EXAMINATION: CTA NECK DATE OF EXAM: 09/02/2015 11:30 PM CURRENT HISTORY: INDICATIONS: L jaw (TMJ ) and neck pain, please go through TMJ ? Hx Questions: ??Hx ??of Diabetes, Renal Insuf., Multiple Myeloma? Unknown PREVIOUS HISTORY: As above. TECHNIQUE: ??Intravenous contrast was ad ministered and imaging of the neck was obtained during the arterial phase of the contrast bolus.3D angiographic post- processing was performed or MIP imaging was o btained. ?? INDICA TIONS: L jaw (TMJ) and neck pain, please go through T MJ ??`Hx of Diabetes, Renal Insuf., Multiple Myeloma? Unknown` COMPARISON: ??None. FINDINGS: NECK CT: Paranasal sinuses: No air fluid levels o r abnormal mucosal thickening. Nasopharynx: Normal. Oropharynx: Normal. Prevertebral tissue: No swelling. Salivary glands: Symmetric with normal s ize. Cervical lymph nodes: No lymphadenopathy . Thyroid gland: Normal. Larynx/trachea: Normal. Bones: No acute findings. Lung apices: Unremarkable. Additional comments: Asymmetry of the te mporal mandibular joints. Left mandibular condyle is chronically flattened and anteriorly subluxed compared to the right. CTA: AORTIC ARCH AND GREAT VESSELS: Brachiocephalic/right common carotid art steffi: Patent. Left common carotid artery: Patent. Left subclavian artery: Patent. VERTEBROBASILAR SYSTEM: Right vertebral: Patent. Left vertebral: Patent. RIGHT CAROTID ??BIFURCATION: Patent. LEFT CAROTID BIFURCATION: Patent. Additional comments: None. IMPRESSION: ??Vessels are unremarkable. 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 Unknown PREVIOUS HISTORY: As above. TECHNIQUE: Intravenous contrast was admi nistered and imaging of the neck was obtained during the arterial phase of the contrast bolus.3D angiographic post- processing was performed or MIP imaging was obtained. INDICATIONS: L ja w (TMJ) and neck pain, please go through T MJ `Hx of Diabetes, Renal Insuf., Multiple Myeloma? Unknown` COMPARISON: None. FINDINGS: NECK CT: Paranasal sinuses: No air fluid levels o r abnormal mucosal thickening. Nasopharynx: Normal. Oropharynx: Normal. Prevertebral tissue: No swelling. Salivary glands: Symmetric with normal s ize. Cervical lymph nodes: No lymphadenopathy . Thyroid gland: Normal. Larynx/trachea: Normal. Bones: No acute findings. Lung apices: Unremarkable. Additional comments: Asymmetry of the te mporal mandibular joints. Left mandibular condyle is chronically flattened and anteriorly subluxed compared to the right. CTA: AORTIC ARCH AND GREAT VESSELS: Brachiocephalic/right common carotid art steffi: Patent. Left common carotid artery: Patent. Left subclavian artery: Patent. VERTEBROBASILAR SYSTEM: Right vertebral: Patent. Left vertebral: Patent. RIGHT CAROTID BIFURCATION: Patent. LEFT CAROTID BIFURCATION: Patent. Additional comments: None. IMPRESSION: Vessels are unremarkable. Th ere is chronic left-sided temporomandibular joint arthrosis This report agrees with the preliminary resident report WSN:[id number] * * * THIS IS AN ELECTRONICALLY VERIFIE D REPORT * * * 09/03/2015 12:36:00 AM Tejinder Arce MD For questions regarding this report plea se contact [facility] at [phone] Sara Us MD IMG CT ORDERABLES Performing Organization Address City/State/ZIP Code Phon e Number RADIOLOGY (ABNORMAL) Basic Metabolic Panel (09/02/2015 10:50 PM EST) athologist Signature Sodium 140 133 - 145 [facility] mEq/L [facility] Potassium 3.6 3.3 - 5.3 [facility] mEq/L [facility] Chloride 100 96 - 108 [facility] mEq/L [facility] Carbon Dioxide 32 (H) 21 - 30 [facility] mEq/L [facility] Anion Gap 8 7 - 16 [facility] mEq/L [facility] Glucose 112 (H) 70 - 99 [facility] mg/dL [facility] Blood Urea 13 6 - 19 [facility] Nitrogen mg/dL [facility] Creatinine 0.68 0.50 - [facility] 1.30 mg/dL [facility] BUN Creatinine 19.1 [facility] Ratio [facility] Calcium 9.5 8.6 - 10.4 [facility] mg/dL [facility] EGFR >60 >60 [facility] Non- C[facility] Belgian EGFR >60 >60 [facility] Belgian [facility] Comment: -- eGFR UNITS OF MEASURE -- mL/min/1.73m(2) Comment EGFR SEE BELOW [facility] Comment: The EGFR calculation has not been valida bindu in patients older than 70, but can be used as an orientati ve information. Specimen Anatomical Collection Method Collection Time Receive d Time (Source) Location / / Volume Laterality Blood specimen 09/02/2015 10:50 6 (specimen) PM EST 11:01 PM EST Sara Us MD CHEMISTRY ORDERABLES Performing Organization Address City/State/ZIP Code Phon e Number [facility] [address] [facility] [address] [phone] [place] [address] Title Clerk Automobile: Arcenio Zuniga MD XR Panorex (09/02/2015 9:21 PM EST) Anatomical Region Laterality Modality Head Computed Radiography Specimen (Source) Anatomical Collection Method Collection Time Re ceived Time Location / / Volume Laterality 09/02/2015 8:50 PM EST Narrative [facility] RADIOLOGY - 09/03/2015 10:44 AM EST EXAM: ?? PANOREX RADIOGRAPH 09/02/2015 INDICATION: ??69-year-old female with le ft temporomandibular joint and ramus pain. She is unable to open her mouth fully. COMPARISON: ??None available. TECHNIQUE: ??Standard Panorex radiograph was obtained. FINDINGS: ??There is symmetric appearanc e to the temporomandibular joints on this study without clear abnormality or fracture. Evaluation is somewhat limited due to osteopenia. There are multiple dental implants identified, but no discrete ev idence of periapical lucency is identified. IMPRESSION: ??Symmetric appearance to th e temporomandibular joints, although this study is limited due to osteopenia. Cross-sectional imaging can be obtained as clinically warranted. Evangelina Goodman MD has personally rev iewed the images and interpretation and agrees with the final report. Dictated by: ??Jamie Bishop MD-Fittings Finisher ?* * * THIS IS AN EL ECTRONICALLY VERIFIED REPORT * * * 09/03/2015 8:38 AM: ??Jamie Bishop MD-Radi ology Resident 09/03/2015 10:15 AM: ??Evangelina Goodman MD Procedure Note Evangelina Goodman MD - 09/03/2015 EXAM: PANOREX RADIOGRAPH 09/02/2015 INDICATION: 69-year-old female with left temporomandibular joint and ramus pain. She is unable to open her mouth fully. COMPARISON: None available. TECHNIQUE: Standard Panorex radiograph w as obtained. FINDINGS: There is symmetric appearance to the temporomandibular joints on this study without clear abnormality or fracture. Evaluation is somewhat limited due to osteopenia. There are multiple dental implants identified, but no discrete evidence of periapical lucency is identified. IMPRESSION: Symmetric appearance to the temporomandibular joints, although this study is limited due to osteopenia. Cross-sectional imaging can be obtained as clinically warranted. Evangelina Goodman MD has personally rev iewed the images and interpretation and agrees with the final report. Dictated by: Jamie Bishop MD-Fittings Finisher * * * THIS IS AN ELECTRONICALLY VERIFIE D REPORT * * * 09/03/2015 8:38 AM: Jamie Bishop MD-Radiol ogy Resident 09/03/2015 10:15 AM: Kezia Pike Sara Us MD IMG DIAGNOSTIC IMAGING ORDER DARA Performing Organization Address City/State/ZIP Code Phon e Number RADIOLOGY EKG 12 lead - STAT (09/02/2015 7:18 PM EST) Specimen (Source) Anatomical Collection Method Collection Time Re ceived Time Location / / Volume Laterality 09/02/2015 7:18 PM EST Sara Us MD ECG ORDERABLES Performing Organization Address City/State/ZIP Code Phon e Number [facility] MIKE documented in this encounter Visit Diagnoses Diagnosis Pain in jaw not originating in temporoma ndibular joint - Primary documented in this encounter Administered Medications Inactive Administered Medications - up to 3 most recent administrations Medication Order MAR Action Action Date Dose Rate Site iohexol (OMNIPAQUE) 350 MG/ML Given 09/02/2015 11:37 PM EST 80 m L injection 80 mL 80 mL, Intravenous, Once PRN, Starting on Sat09/02/15 at 2337, For 1 dose oxyCODONE immediate release tablet 5 mg Given 09/02/2015 8:54 PM EST 5 mg 5 mg, Oral, Once, On Sat09/02/15 at 2045, For 1 dose, Possible side effects: drowsiness, constipation, nausea/vomiting oxyCODONE immediate release tablet 5 mg Given 09/03/2015 1:52 AM EST 5 mg 5 mg, Oral, Once, On 2/20/16 at 0145, For 1 dose, Possible side effects: drowsiness, constipation, nausea/vomiting documented in this encounter Active and Recently Administered Medications Times are shown in EST. Scheduled Medication Order 09/01/2015 09/02/2015 09/03/2015 oxyCODONE immediate release tablet 5 mg (COMPLETED) 2053 (Given - Provider: Sammie Ralph, RN) 5 mg, Oral, Once, 09/02/15 at 2045, F or 1 dose, Possible side effects: drowsiness, constipation, nausea/vomiting oxyCODONE immediate release tablet 5 mg (COMPLETED) 151 (Given - Provider: Jess Draper RN) 5 mg, Oral, Once, 09/03/15 at 0145, F or 1 dose, Possible side effects: drowsiness, constipation, nausea/vomiting PRN Medication Order 09/01/2015 09/02/2015 09/03/2015 iohexol (OMNIPAQUE) 350 MG/ML injection 80 mL (COMPLETED) 2337 (Given - Provider: Vibha Concepcion) 80 mL, Intravenous, Once PRN, Starting 09/02/15 at 2337, For 1 dose documented in this encounter Care Teams Piccoloist Relationship Specialty Start Date End Date Provider, Unknown PCP - Generic [facility] PCP 6 documented as of this encounter
--- OUTSIDE RECORDS SUMMARY | 2022-02-08 09:13 | XMS_ITS | Encounter Summary ---
:1945 Author Organization [facility] Address [address] [place] [address] Care Team Providers Name Role Phone Nakita Pruitt MD Primary Care Provider Mandy Liriano MD Primary Care Provider Tony Fuller PA-C Primary Care Provider [phone] Encounter Details Date Type Department Care Team Description 02/11/2006 Hospital Encounter [facility] - Jorge Jalloh MD [id number] [place] [address] [place] [address] (Wo rk) Social History Tobacco Use Types Packs/Day Years Used Date Former Smoker Smokeless Tobacco: Never Used Sex Assigned at Date Recorded Not on file documented as of this encounter Plan of Treatment Upcoming Encounters Date Type Specialty Care Team Description 06/05/2022 Office Visit Dermatology Pedro Phan MD [address] [facility], [facility] [address] [place], [place] [phone] (Wo rk) documented as of this encounter Visit Diagnoses Not on filedocumented in this encounter Care Teams Tapper Hand Relationship Specialty Start Date End Date Nakita Pruitt MD PCP - General 12/24/08 01/03/17 [facility] [address] [place] [address] Mandy Liriano MD PCP - General 11/17/08 12/23/08 [address] [place] [address] Tony Fuller PA-C PCP - General 01/04/[address] [place] [phone] documented as of this encounter
--- OUTSIDE RECORDS SUMMARY | 2022-02-08 09:13 | XMS_ITS | Encounter Summary ---
:1945 Author Organization [facility] Address [address] [place] [address] Care Team Providers Name Role Phone Tony Fuller PA-C Primary Care Provider [phone] Encounter Details Date Type Department Care Team Description 10/05/2020 Lab Requisition [facility] Outr Resulting Lab, Pathology & Laboratory Provider [facility] [address] [place], [place] [id number] Social History Tobacco Use Types Packs/Day Years Used Date Never Assessed Sex Assigned at Date Recorded Not on file documented as of this encounter Plan of Treatment Upcoming Encounters Date Type Specialty Care Team Description 06/05/2022 Office Visit Dermatology Pedro Phan MD [address] [facility], [facility], [address] [place], [place] [phone] (Wo rk) documented as of this encounter Procedures Procedure Name Priority Date/Time Associated Diagnosis Comme nts AFB CULTURE/SMEAR, Routine 10/05/2020 14:00 Resul ts for this OTHER EDT procedure are i n the results section. documented in this encounter Results AFB CULTURE/SMEAR, OTHER (10/05/2020 14:00 EDT) Pathologist Sig nature Organism ID No acid-fast bacilli [facility] isolated [facility] SERVICES AFB Smear No Acid Fast Bacilli [facility] Seen [facility] Specimen Sputum - Collection of induced sputum (p rocedure) Performing Organization Address City/State/ZIP Code Phon e Number [facility] [address] [place] [address] SERVICES documented in this encounter Visit Diagnoses Not on filedocumented in this encounter Care Teams Axle Turner Relationship Specialty Start Date End Date Tony Fuller PA-C PCP - General 01/04/[address] [place] [phone] documented as of this encounter
--- OUTSIDE RECORDS SUMMARY | 2022-02-08 09:13 | XMS_ITS | Encounter Summary ---
:1945 Author Organization [facility] Address [address] [place] [address] Care Team Providers Name Role Phone Tony Fuller PA-C Primary Care Provider [phone] Encounter Details Date Type Department Care Team Description 12/03/2020 Lab Requisition [facility] Outr Resulting Lab, Pathology & Laboratory Provider [facility] [address], [place] [id number] Social History Tobacco Use Types Packs/Day Years Used Date Never Assessed Sex Assigned at Date Recorded Not on file documented as of this encounter Plan of Treatment Upcoming Encounters Date Type Specialty Care Team Description 06/05/2022 Office Visit Dermatology Pedro Phan MD [address] [facility], [facility], [address] [place], [place] [phone] (Wo rk) documented as of this encounter Procedures Procedure Name Priority Date/Time Associated Comments Diagnosis CCP ANTIBODIES Routine 12/02/2020 11:20 Results f or this EDT procedure are i n the results section. LYME AB Routine 12/02/2020 11:20 Results for this EDT procedure are i n the results section. HIGH SENSITIVITY Routine 12/02/2020 11:20 Results for this C-REACTIVE PROTEIN EDT procedure are in (CARDIOVASCULAR the results DISEASE) section. ANTI NUCLEAR AB Routine 12/02/2020 11:20 Results for this (GINA), IFA EDT procedure are i n the results section. documented in this encounter Results LYME AB (12/02/2020 11:20 EDT) Pathologist Sig nature Lyme Ab NegativeComment: New Negative [facility] 3rd generation assay LABORATORY SERVICES in use 12/23/2019 Specimen Blood - Venous blood (substance) Performing Organization Address [facility] Phon e Number [facility] LABORATORY [address] [place] [address] SERVICES (ABNORMAL) ANTI NUCLEAR AB (GINA), IFA (12/02/2020 11:20 EDT) GINA Interpretation Positive (A) Negative [facility] LABORATORY SERVICES GINA Titer and Pattern 1 1:80 Speckled [facility] LABORATORY SERVICES Specimen Blood - Venous blood (substance) Narrative [facility] LABORATORY SERVICES - 12/05/2020 15:00 EDT Results were obtained with the INOVA NOV A Lite HEp-2 GINA Kit by indirect immunofluorescence. Performing Organization Address [facility] Phon e Number [facility] LABORATORY [address] [place] [address] SERVICES CCP ANTIBODIES (12/02/2020 11:20 EDT) Pathologist Sig nature CCP Antibodies <2.5 <5.0 U/mL [facility] LABORAT ORY SERVICES Specimen Blood - Venous blood (substance) Performing Organization Address [facility] Phon e Number [facility] LABORATORY [address] [place] [address] SERVICES HIGH SENSITIVITY C-REACTIVE PROTEIN (CARDIOVASCULAR DISEASE) (12/02/2020 11:20 EDT) High Sensitivity 1.49 See Note [facility] CRP Comment: mg/L CENTER LABORATORY Reference Range: SERVICES ??Source: The [place] [employer] Clinical Practice Recommendations, 2003 ??Low Risk: ? <1.0 mg/L ??Average Risk: ?? 1.0 - 3.0 mg/L ??High Risk: ?>3.0 mg/L ??Indeterminate*: >10.0 mg/L ??*May be an indication of another source of inflamma tion or infection Specimen Blood - Venous blood (substance) Performing Organization Address [facility] Phon e Number [facility] LABORATORY [address] [place] [address] SERVICES documented in this encounter Visit Diagnoses Not on filedocumented in this encounter Care Teams Dog Licenser Relationship Specialty Start Date End Date Tony Fuller PA-C PCP - General 01/04/[address] [place] [phone] documented as of this encounter
--- OUTSIDE RECORDS SUMMARY | 2022-02-08 09:13 | XMS_ITS | Encounter Summary ---
:1945 Author Organization [facility] Address [address] [place] [address] Care Team Providers Name Role Phone Tony Fuller PA-C Primary Care Provider [phone] Encounter Details Date Type Department Care Team Description 04/01/2017 Hospital Encounter [facility] Unknown, Provider, [facility] [address] [facility] [phone] [place] [address] (Work) [phone] Social History Tobacco Use Types Packs/Day Years Used Date Never Assessed Sex Assigned at Date Recorded Not on file documented as of this encounter Discharge Disposition Disposition Code Departure Means Destination Home or Self Retirement documented in this encounter Plan of Treatment Upcoming Encounters Date Type Specialty Care Team Description 06/05/2022 Office Visit Dermatology Pedro Phan MD 111 [facility], [facility], [address] [place], [place] [phone] (Wo rk) documented as of this encounter Visit Diagnoses Not on filedocumented in this encounter Care Teams Curing Oven Tender Relationship Specialty Start Date End Date Tony Fuller PA-C PCP - General 01/04/[address] [place] [phone] documented as of this encounter
--- OUTSIDE RECORDS SUMMARY | 2022-02-08 09:13 | XMS_ITS | Encounter Summary ---
:1945 Author Organization [facility] Address [address] [place] [address] Care Team Providers Name Role Phone Tony Fuller PA-C Primary Care Provider [phone] Encounter Details Date Type Department Care Team Description 12/05/2020 Lab Requisition [facility] Tony Fuller for other Pathology & LREMY general examination Laboratory Medicine [address] [place], [place] 111 [facility] [phone] [place], [place] [phone] Social History Tobacco Use Types Packs/Day Years Used Date Never Assessed Sex Assigned at Date Recorded Not on file documented as of this encounter Plan of Treatment Upcoming Encounters Date Type Specialty Care Team Description 06/05/2022 Office Visit Dermatology Pedro Phan MD 111 [facility], [facility], [address] [place], [place] [phone] (Wo rk) documented as of this encounter Procedures Procedure Name Priority Date/Time Associated Comments Diagnosis ORGANISM IDENTIFICATION Today 12/04/2020 12:00 Encounter for other Results for this AND SUSCEPTIBILITY EDT general examination pr ocedure are in the results section. documented in this encounter Results (ABNORMAL) ORGANISM IDENTIFICATION AND SUSCEPTIBILITY (12/04/2020 12:00 EDT) Pathologist Sig nature Organism ID Justo barber (A) [facility] LABORATORY SERVICES Specimen Organism - Urine (substance) Organism Antibiotic Method Susceptibility Haelder barber Ampicillin VITEK SUSCEPTIBILITY 16 ug/mL: R esistant Justo barber Ceftriaxone VITEK SUSCEPTIBILITY <=1 ug/mL: Susceptible Justo barber Ciprofloxacin VITEK SUSCEPTIBILITY <=0.25 ug/m L: Susceptible Haelder barber Ertapenem VITEK SUSCEPTIBILITY <=0.5 ug/mL : Susceptible Haelder barber Meropenem VITEK SUSCEPTIBILITY <=0.25 ug/m L: Susceptible Justo barber Nitrofurantoin VITEK SUSCEPTIBILITY <=16 ug/mL: Susceptible Justo barber Piperacillin Tazobactam VITEK SUSCEPTIBILITY 64 ug/mL: Intermediate Justo barber Trimethoprim-Sulfamethoxaz VITEK SUSCEPTIBILITY <=20 ug/mL: Susceptible ole Performing Organization Address City/State/ZIP Code Phon e Number [facility] LABORATORY [address] [place] [address] SERVICES documented in this encounter Visit Diagnoses Diagnosis Encounter for other general examination documented in this encounter Care Teams Caustic Loader Relationship Specialty Start Date End Date Tony Fuller PA-C PCP - General 01/04/[address] [place] [phone] documented as of this encounter
--- OUTSIDE RECORDS SUMMARY | 2022-02-08 09:13 | XMS_ITS | Clinical Summary ---
:1945 Author Organization [facility] Address [address] [place] [address] Care Team Providers Name Role Phone Tony Fuller PA-C Primary Care Provider [phone] Allergies No known active allergies Medications Medication Sig Dispensed Refills Start Date End Date Status venlafaxine (EFFEXOR-XR) Take 37.5 mg by 0 Active 37.5 mg XR capsule mouth daily. atorvastatin (LIPITOR) Take 20 mg by 0 Active 20 mg tablet mouth daily. levothyroxine Take 50 mcg by 0 A ctive (SYNTHROID) 50 mcg mouth daily. tablet diazePAM (VALIUM) 10 mg Take 10 mg by 0 Active tablet mouth every 6 hours as needed for Anxiety. SUMAtriptan (IMITREX) 50 Take 100 mg by 0 Active mg tablet mouth as needed for Migraine. Social History Tobacco Use Types Packs/Day Years Used Date Former Smoker Smokeless Tobacco: Never Used Sex Assigned at Date Recorded Not on file Plan of Treatment Upcoming Encounters Date Type Specialty Care Team Description 06/05/2022 Office Visit Dermatology Pedro Phan MD 111 [facility], [facility], [address] [place], [place] [address] (Wo rk) Health Maintenance Due Date Last Done Comments Hepatitis C Screen 1945 COVID-19 Vaccine (1) 1949 Fall Risk Screening 2009 Insurance Payer Benefit Plan / Subscriber ID Effective Phone Address T ype Group Dates MEDICARE MEDICARE A/B [id number] 2009-Pres [address] edicare GL ent [id number] [place] [phone] [facility] [id number] 2009-Pres [address] [employer] [place] [id number] COMPANY AhsanMandy Giovanny Personal/Family Self [address] ([address]) [place] [address] BenignoterrybrigitteMandy Giovanny Personal/Family Self [address] (Home) [place] [address] Care Teams Case Maker Relationship Specialty Start Date End Date Tony Fuller PA-C PCP - General 01/04/[address] [place] [phone]
--- OUTSIDE RECORDS SUMMARY | 2022-02-08 09:13 | XMS_ITS | Encounter Summary ---
:1945 Author Organization [facility] Address [address] [place] [address] Care Team Providers Name Role Phone Nakita Pruitt MD Primary Care Provider Tony Fuller PA-C Primary Care Provider [phone] Encounter Details Date Type Department Care Team Description 10/30/2012 Historical Results [facility] - Kaiden Lind, Only [facility] Lab - [place] us DO [address] [place] [address] [address], [address] [place] [address] Social History Tobacco Use Types Packs/Day Years Used Date Never Assessed Sex Assigned at Date Recorded Not on file documented as of this encounter Plan of Treatment Upcoming Encounters Date Type Specialty Care Team Description 06/05/2022 Office Visit Dermatology Pedro Phan MD 111 [facility], [facility] [address], [address] [place], [place] [phone] (Wo rk) documented as of this encounter Procedures Procedure Name Priority Date/Time Associated Diagnosis Comme nts PAP TEST Routine 10/30/2012 15:58 EDT Results for this procedure are i n the results section . documented in this encounter Results PAP TEST (10/30/2012 15:58 EDT) Specimen Narrative [facility] - 013 10:51 EDT Name: MANDY TODD ? : [birth year] ?Age/Sex: 73/F ?Unit#: [id number] ? Loc: AGO ? Status: REG POV ?? Reg Date: 10/30/12 ? Pt.Phone Number : ? Specimen: [id number] ?DON LOREDO: VIK ?Spec Date:10/30/12 ? Physician Copies: ?Richard Lind DO Tissues: ? Cervical/Endo Pap ?Nakita Pruitt MD ? CPT: 72432 ?? Units: ??1 ? CYTOLOGY DIAGNOSIS SPECIMEN ADEQUACY: ?Satisfactory for evaluation. Transformation zone component present. GENERAL CATEGORIZATION: ?Negative fo r Intraepithelial Lesion or Malignancy DESCRIPTIVE DIAGNOSIS: ? Negative fo r Intraepithelial Lesion or Malignancy. RECOMMENDATIONS/COMMENTS: ?None. ORDER QUERIES: LMP: ?? - WNL ?Pregn ant? N Post ? N ??PREVIOUS ATYPICAL: N BCP/HRT? Y Rad Rx? N IUD? N ??PAP PLUS HPV? N ??REFLEX TO HR-HPV IF ASCUS ?? REFLEX TO HPV 16/18 IF HPV POS/PAP NEG ?? HPV REGARDLESS?RFLX HPV IF LSIL ?? IF ASCUS DO HPV? Y Signed Shawn Atkins M.D. 11/10/12 ?? By the signature above, the attending ph ysician certifies that he/she has personally conducted a gross and/or microscopic exa mination of the described specimens and rendered or confirmed the above diagnosi s. Test Performed by [facility], [address] [address] Automobile Upholsterer: Sapphire Covington MD PHD Performing Organization Address City/State/ZIP Code Phon e Number [facility] [address] [place], [place] [phone] [place] [address] LAB documented in this encounter Visit Diagnoses Not on filedocumented in this encounter Care Teams Configuration Specialist Relationship Specialty Start Date End Date Nakita Pruitt MD PCP - General 12/24/08 01/03/17 [facility] [address] [place] [address] Tony Fuller PA-C PCP - General 01/04/17 [address] [place] [phone] documented as of this encounter
--- OUTSIDE RECORDS SUMMARY | 2022-02-08 09:13 | XMS_ITS | Clinical Summary ---
:1945 Author Organization [facility] Address [address] [place] [address] Care Team Providers Name Role Phone Provider, Unknown Unavailable Unavailable Allergies Active Allergy Reactions Severity Noted Date Comments Naproxen 09/02/2015 Medications No known medications Social History Tobacco Use Types Packs/Day Years [...] Assigned at Date Recorded Not on file Last Filed Vital Signs Vital Sign Reading [...] - - Body Mass Index - - Plan of Treatment Health Maintenance Due Date Last Done Comments COVID-19 Vaccine (#1) 03/05/1946 Depression Screening 1956 Hepatitis C Screening 1962 TDAP/TD Vaccine 18+ 1962 Annual Wellness Visit 1964 Lipid Screening 1979 Herpes Zoster Vaccine (1 of 2) 1994 Advanced Care Plan 2009 Fall Risk Assessment 2009 Osteoporosis Screening 2009 Pneumococcal: 65 + Immunization Scheduling (1 - PCV) 2009 Influenza Vaccine (#1) 2022 Insurance Payer Benefit Plan / Subscriber ID Effective Phone Address T ype Group Dates MEDICARE MEDICARE A AND [id number] 2009-Pres [address] Medicare B ent [place] [id number] OTHER COMMERCIAL [id number] 2015-Pre [phone] [address] COMMERCIAL OTHER sent [phone] [phone] Advance Directives For more information, please contact: [phone] Documents on File Type Date Recorded Patient Morphology Teacher Explanati on Advance Directives and Living 09/02/2015 6:31 PM Will Care Teams Mine Engineering Manager Relationship Specialty Start Date End Date Provider, Unknown PCP - Generic [facility] PCP 6
--- OUTSIDE RECORDS SUMMARY | 2022-02-08 09:13 | XMS_ITS | Encounter Summary ---
:1945 Author Organization Health system Address [address] [place] [address] Care Team Providers Name Role Phone Tony Fuller PA-C Primary Care Provider [phone] Encounter Details Date Type Department Care Team Description 10/01/2018 Results Only [facility]- Dolores Valdivia MD [phone] [place] [phone] Social History Tobacco Use Types Packs/Day Years Used Date Never Assessed Sex Assigned at Date Recorded Not on file documented as of this encounter Plan of Treatment Upcoming Encounters Date Type Specialty Care Team Description 06/05/2022 Office Visit Dermatology Pedro Phan MD [address] [facility], [facility], [address] [place], [place] [phone] (Wo rk) documented as of this encounter Procedures Procedure Name Priority Date/Time Associated Comments Diagnosis SUSCEPTIBILITY, AFB, Routine 10/01/2018 13:10 Res ults for this SLOWLY GROWING EDT procedure are in the results section. FUNGAL SMEAR Routine 10/01/2018 13:10 Results for this EDT procedure are i n the results section. FUNGAL SMEAR Routine 10/01/2018 13:10 Results for this EDT procedure are i n the results section. AFB CULTURE, Routine 10/01/2018 13:10 Results for this RESPIRATORY EDT procedure are i n the results section. AFB CULTURE, Routine 10/01/2018 13:10 Results for this RESPIRATORY EDT procedure are i n the results section. FUNGUS CULTURE, Routine 10/01/2018 13:10 Results for this RESPIRATORY EDT procedure are i n the results section. FUNGUS CULTURE, Routine 10/01/2018 13:10 Results for this RESPIRATORY EDT procedure are i n the results section. ACID-FAST SMEAR ONLY, Routine 10/01/2018 13:10 Re sults for this OTHER EDT procedure are i n the results section. ACID-FAST SMEAR ONLY, Routine 10/01/2018 13:10 Re sults for this OTHER EDT procedure are i n the results section. CYTOPATHOLOGY Routine 10/01/2018 0:00 Results for this EDT procedure are i n the results section. documented in this encounter Results SUSCEPTIBILITY, AFB, SLOWLY GROWING (10/01/2018 13:10 EDT) Spec Source and Bronchial [facility] Org ID WashingsComment: MY LABORATORY SERVICES Susc,AFB,Slow See Comments [facility] Grower Comment: LABORATORY (Note) SERVICES SOURCE: BRONCHIAL WASHING, Bronchial Washings MYCOBACT ERIUM AVIUM COMPLEX SUSCEPTIBILITY, AFB, SLOW GROWER ? FINAL MYCOBACTERIUM AVIUM COMPLEX ?? Organism identified by client. . There are no established interpretive guidelines for a gents reported without interpretations. ----- Organism ? MYCOBACTERIUM AVIUM COMPLEX Antibiotic ?JENNIFER (mcg/mL) ??Interpretation ----- Moxifloxacin ? 4 ? R Clarithromycin ? 1 ? S Amikacin ? 8 Streptomycin ?16 Linezolid ? 16 ? I Ethambutol ? 4 Rifampin ? 4 Rifabutin ? <=0.25 ------ S=SUSCEPTIBLE ??I=INTERMEDIATE ??R=RESISTANT NS=NONSUSCEPTIBLE ??SDD=SUSCEPTIBLE DOSE DEPENDENT ------ Performed or Referred by: [facility], [address] [place] [address] Specimen Other Performing Organization Address [facility] Phon e Number [facility] LABORATORY [address] [place] [address] SERVICES FUNGAL SMEAR (10/01/2018 13:10 EDT) Pathologist Sig nature Fungal Smear No fungi seen [facility] LABORATORY SERVICES Specimen Bronchial Washings Performing Organization Address [facility] Phon e Number [facility] LABORATORY [address] [place] [address] SERVICES FUNGUS CULTURE, RESPIRATORY (10/01/2018 13:10 EDT) Pathologist Sig nature Result No fungi isolated [facility] LABORATORY SERVICES Specimen Bronchial Washings Performing Organization Address [facility] Phon e Number [facility] LABORATORY [address] [phone] SERVICES ACID-FAST SMEAR ONLY, OTHER (10/01/2018 13:10 EDT) Pathologist Sig nature Acid Fast No acid-fast bacilli [facility] seen LABORATORY SERVICES Specimen Bronchial Washings Performing Organization Address [facility]/ZIP Code Phon e Number [facility] LABORATORY [address] [place] [address] SERVICES AFB CULTURE, RESPIRATORY (10/01/2018 13:10 EDT) Result MYCOBACTERIUM AVIUM COMPLEX [facility] ENTER Assayed by [facility], [place], [place] LABORATORY SERVICES See church report from 11/26/2018 for susceptibilities Specimen Bronchial Washings Performing Organization Address [facility] Phon e Number [facility] LABORATORY [address] [place] [address] SERVICES AFB CULTURE, RESPIRATORY (10/01/2018 13:10 EDT) Pathologist Sig nature Result No acid-fast bacilli [facility] isolated LABORATORY SERVICES Specimen Bronchial Washings Performing Organization Address [facility] Phon e Number [facility] LABORATORY [address] [place] [address] SERVICES ACID-FAST SMEAR ONLY, OTHER (10/01/2018 13:10 EDT) Pathologist Sig nature Acid Fast No acid-fast bacilli [facility] seen LABORATORY SERVICES Specimen Bronchial Washings Performing Organization Address [facility]/ZIP Code Phon e Number [facility] LABORATORY [address] [place] [address] SERVICES FUNGAL SMEAR (10/01/2018 13:10 EDT) Pathologist Sig nature Fungal Smear No fungi seen [facility] LABORATORY SERVICES Specimen Bronchial Washings Performing Organization Address [facility]/ZIP Code Phon e Number [facility] LABORATORY [address] [place] [address] SERVICES FUNGUS CULTURE, RESPIRATORY (10/01/2018 13:10 EDT) Pathologist Sig nature Result Few [facility] LABORATORY SERVICES Specimen Bronchial Washings Performing Organization Address [facility] Phon e Number [facility] LABORATORY [address] [place] [address] SERVICES CYTOPATHOLOGY (10/01/2018 0:00 EDT) Pathology Report: CYTOPATHOLOGY REPORT [facility] Reports generated via electronic interface contain aaliyah ginal data; SERVICES however they are lacking the format of the original re port. Caution should be taken when reading/interpreting unfo rmatted reports. Name: ? MANDY TODD ? Accession #: ? [id number] : ? 1945 (Age: [age]) ??F ?Collect Date: ? 10/01 Location: ? [facility] ? Receive Date: ? 10/02/2018 Provider: ? DOLORES SEARS MD Copy to: ? CYTOLOGIC DIAGNOSIS: A. ??LUNG, RIGHT UPPER LOBE, BRONCHIAL WASHING: - No malignant cells identified. ??See comment. B. ??LUNG, LEFT UPPER LOBE, BRONCHIAL WASHING: - No malignant cells identified. ??See comment. ? COMMENT: Both specimens consist of benign bronchial epithelial cells and alveolar macrophages. ??Acid fast solange illi stains are negative for organisms (specimens A and B). ??Controls stain appropriately. (Dr. Duncan)/m ms Document reviewed and electronically signed by: ? ANNIA DUNCAN MD Report Date: ??10/06/2018 12:24 By the signature above, the attending physician certif ies that he/she has personally conducted a gross and/or microscopic examin ation of the described specimens and rendered or confirmed the above diagnosi s. Specimen Type: ? A: Bronchial Wash, Right Upper Lobe B: Bronchial Wash, Left Upper Lobe Clinical History: ? 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 ? Gross Description: ? A. ??Bronchial Wash, Right Upper Lobe: ? ? 20ccs of cloudy off-white fluid were received and processed by selective cellular enhanceme nt technique. ? B. ??Bronchial Wash, Left Upper Lobe: ?? 15ccs o f cloudy colorless fluid were received and processed by selective cellular enhanceme nt technique. ? End of Report Specimen Performing Organization Address City/State/ZIP Code Phon e Number [facility] [address] [place] [address] SERVICES documented in this encounter Visit Diagnoses Not on filedocumented in this encounter Care Teams Monumental Stonemason Relationship Specialty Start Date End Date Tony Fuller PA-C PCP - General 01/04/[address] [place] [phone] documented as of this encounter
--- OUTSIDE RECORDS SUMMARY | 2022-02-08 09:13 | XMS_ITS | Encounter Summary ---
:1945 Author Organization [facility] Address [address] [place] [address] Care Team Providers Name Role Phone Tony Fuller PA-C Primary Care Provider [phone] Encounter Details Date Type Department Care Team Description 06/13/2021 Lab Requisition [facility] Outr Resulting Lab, Pathology & Laboratory Provider [facility] [address], [place] [id number] Social History Tobacco Use Types Packs/Day Years Used Date Former Smoker Smokeless Tobacco: Never Used Sex Assigned at Date Recorded Not on file documented as of this encounter Plan of Treatment Upcoming Encounters Date Type Specialty Care Team Description 06/05/2022 Office Visit Dermatology Pedro Phan MD [address] [facility], [facility], [address] [place], [place] [address] (Wo rk) documented as of this encounter Procedures Procedure Name Priority Date/Time Associated Diagnosis Comme nts AFB CULTURE/SMEAR, Routine 06/12/2021 9:00 EST Re sults for this OTHER procedure are i n the results section. documented in this encounter Results AFB CULTURE/SMEAR, OTHER (06/12/2021 9:00 EST) Pathologist Sig nature Organism ID No acid-fast bacilli [facility] isolated LABORATORY SERVICES AFB Smear No Acid Fast Bacilli [facility] Seen LABORATORY SERVICES Specimen Sputum - Sputum specimen (specimen) Performing Organization Address City/State/ZIP Code Phon e Number [facility] LABORATORY [address] [place] [address] SERVICES documented in this encounter Visit Diagnoses Not on filedocumented in this encounter Care Teams Artist Consultant Relationship Specialty Start Date End Date Tony Fuller PA-C PCP - General 01/04/17 [address] [place] [phone] documented as of this encounter
--- OUTSIDE RECORDS SUMMARY | 2022-02-08 09:13 | XMS_ITS | Encounter Summary ---
:1945 Author Organization [facility] Address [address] [place] [address] Care Team Providers Name Role Phone Tony Fuller PA-C Primary Care Provider [phone] Encounter Details Date Type Department Care Team Description 10/01/2018 Hospital Encounter [facility]- Moni Unknown, Provider, [facility] [address] [facility] [phone] [place] [address] (Work) [phone] Social History Tobacco Use Types Packs/Day Years Used Date Never Assessed Sex Assigned at Date Recorded Not on file documented as of this encounter Discharge Disposition Disposition Code Departure Means Destination Home or Self Assisted documented in this encounter Plan of Treatment Upcoming Encounters Date Type Specialty Care Team Description 06/05/2022 Office Visit Dermatology Pedro Phan MD 111 [facility], [facility], [address] [place], [place] [phone] (Wo rk) documented as of this encounter Visit Diagnoses Not on filedocumented in this encounter Care Teams Hand Picker Relationship Specialty Start Date End Date Tony Fuller PA-C PCP - General 01/04/[address] [place] [phone] documented as of this encounter
--- OUTSIDE RECORDS SUMMARY | 2022-02-08 09:13 | XMS_ITS | Encounter Summary ---
:1945 Author Organization [facility] Address [address] [place] [address] Care Team Providers Name Role Phone Nakita Pruitt MD Primary Care Provider Encounter Details Date Type Department Care Team Description 01/02/2017 Results Only [facility] Amanda [address], [address] [place], [place] [phone] (Wo rk) Social History Tobacco Use Types Packs/Day Years Used Date Never Assessed Sex Assigned at Date Recorded Not on file documented as of this encounter Plan of Treatment Upcoming Encounters Date Type Specialty Care Team Description 06/05/2022 Office Visit Dermatology Pedro Phan MD 111 [facility], [facility], [address] [place], [place] [phone] (Wo rk) documented as of this encounter Procedures Procedure Name Priority Date/Time Associated Diagnosis Comme nts SURGICAL PATHOLOGY Routine 01/02/2017 16:05 Resul ts for this EDT procedure are i n the results section. documented in this encounter Results SURGICAL PATHOLOGY (01/02/2017 16:05 EDT) Pathology Report: SURGICAL PATHOLOGY REPORT [facility] Reports generated via electronic interface contain aaliyah ginal data; LABORATORY however they are lacking the format of the original re port. SERVICES Caution should be taken when reading/interpreting unfo rmatted reports. Name: ? MANDY TODD ? Accession #: ? [id number] ? : ? 1945 (Age: 6 2) ??F ? Collect Date: ? 01/02/2017 ? Location: ? [facility] ? Receive Date: ? 01/04/20 17 ? Provider: AMANDA DILLON PAC Copy to: ? Final Pathologic Diagnosis: A. ??SKIN OF SPINE, UPPER THORACIC, SUPERIOR, PUNCH BI OPSY: - Melanocytic nevus, predominantly intradermal type. ? ?See comment. - Lesion extends to peripheral edges of biopsy specim en. B. ??SKIN OF SPINE, LOWER THORACIC, INFERIOR, PUNCH BI OPSY: - Seborrheic keratosis, pigmented. Comment: In specimen (A), multiple le vels of the biopsy have been reviewed. ??Present is a predominantly intradermal melanocytic ne vus. ??There is variability of melanin pigment distribution, notably within the basal keratinocytes. ??However, given that this is a smaller sampling of a 9.0 x 6.0 mm mul ticolored nevus with irregular borders, the biopsy may not be representati ve of the lesion as a whole. ??Clinical correlation is essential. ??(Dr. Abelino angeles)/[facility] Document reviewed and electronically signed by: XIMENA BELL MD Report ??Date: 01/07/2017 15:52 By the signature above, the attending physician certif ies that he/she has personally conducted a gross and/or microscopic examin ation of the described specimens and rendered or confirmed the above diagnosi s. Specimen(s) Received: A. ??Upper thoracic spine 3.0 mm punch bx (superior) B. ??Lower thoracic spine 3.0 mm punch bx (inferior) Clinical History: A. 9.0 x 6.0 mm nevus, multicolored, irr egular borders; B. 4.0 x 3.0 mm nevus, multicolored irregular borders; pt has hx of BCC Gross Description: A. ?Received in formalin labelled with proper p atient identification (initials P, S) and superior upper back is a punch b iopsy of castorena-brown variegated skin (0.3 cm in diameter and 0.3 cm in thic kness). The margin is inked and the specimen is submitted intact in A1. B. ?Received in formalin labelled with proper p atient identification (initials P, S) and inferior lower back is a punch b iopsy of castorena-brown slightly irregular skin (0.3 cm in diameter and 0.2 cm in thickness). The margin is inked blue and the specimen is submitted intact in B1. ALEXANDRE Lorenzo [facility] 01/04/2017 9:33 AM End of Report Specimen Performing Organization Address City/State/ZIP Code Phon e Number [facility] LABORATORY [address] [place] [phone] SERVICES documented in this encounter Visit Diagnoses Not on filedocumented in this encounter Care Teams Blog Writer Relationship Specialty Start Date End Date Nakita Pruitt MD PCP - General 12/24/08 01/03/17 [facility] [address] [place] [address] documented as of this encounter
--- OUTSIDE RECORDS SUMMARY | 2022-02-08 09:13 | XMS_ITS | Encounter Summary ---
:1945 Author Organization [facility] Address [address] [place] [address] Care Team Providers Name Role Phone Nakita Pruitt MD Primary Care Provider Mandy Liriano MD Primary Care Provider Encounter Details Date Type Department Care Team Description 04/28/2008 Before [facility] - Marybeth Hair Converted Visit Maple conversion MD Belinda (Maple) 111 [facility] [address] [place] [phone], [address] [place] [address] (Wo rk) Social History Tobacco Use Types Packs/Day Years Used Date Never Assessed Sex Assigned at Date Recorded Not on file documented as of this encounter Progress Notes Marybeth Hair MD - 02/05/2009 0541 EDT DIVISION OF INFECTIOUS DISEASE PROGRESS/FOLLOWUP NOTE - 04/28/2008 ALPA Galvan is a 62-year-old woman who returns to the infectious disease clinic for 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 She was last seen in our office in December and remains on her triple drug regimen. For full details of her past medical history please refer to the clinic note from May 2007. Briefly, she had been treated in 2004 to 2005 for her Mycobacterium avium infection with combinationtherapy including ethambutol and Biaxin for a total of eighteen months. In September 2005 she completed her treatment and was feeling overall well. She had a recrudescence of her infection in the summer, and cultures were positive at that time for Mycobacterium avium. She was placed back on ethambutol and Biaxin in February 2007 but did not improve. She initially saw us for initial consultation back in May 2007. At that time we added rifampin, to her current drug regimen. To date she remains on rifampin, ethambutol, and clarithromycin. Overall she has tolerated this regimen quite well. She has had no difficulties with nausea, vomiting, diarrhea or rash. She is followed by an ophthalmologistregularly without complications. When I last saw her in December she was planning on moving into a new house. 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 She said she would still get short of breath with exertion, but she felt she had improved significantly compared to May. In the interim she has fractured her ankle and is now in a soft cast. She is followed by an orthopedic surgeon in [facility]. She and her have purchased a new house and they are just in the process of moving in. She says overall she is doing well. She says her fatigue and energy level is down somewhat but her appetite is good and she feels her weight has been stable. She is not brining up any sputum. She has had no difficulties with shortness of breath, chest pain. No flushing, no rash, no diarrhea, no nausea, no vomiting. CURRENT MEDICATIONS 1. Rifampin 600 mg daily. 2. Ethambutol 800 mg daily. 3. Clarithromycin 500 mg b.i.d. 4. Pravastatin 20 mg daily. 6. Clonazepam at bedtime 7. GlycoLax 17 grams daily. . 8. Multivitamins once a day. 9. Calcium with vitamin D once a day. 10. [place] 3 fatty acids once a day. ALLERGIES SHE IS ALLERGIC TO DARVON AND ALEVE. THEY CAUSE FACIAL SWELLING. OBJECTIVE On exam, her temperature is 97.1. Her blood pressure is 112/78. She weighs 60.5 kilograms. Her previous office weight was 61 kilos. She is generally a sharon, well-dressed woman in no apparent distress. She has no evidence of oral lesions or thrush. She has no cervical, supraclavicular, lymphadenopathy. She has a normal S1, S2 and her lungs are clear to auscultation without wheeze or rhonchi. She hasno evidence of rash. LABORATORY DATA Her LFTs have been done monthly, up in [facility] by her primary care doctor. The last ones were from last month and these were normal. ASSESSMENT AND PLAN Mycobacterium avium infection. Mandy and I did discuss the fact that this treatment is quite arduous. She has been this before, although she seems to tolerate it quite well. There is no guarantee this will completely clear her infection and she very well may relapse. I think she understands this but wants to continue treatment. Will plan for at least eighteen months of therapy. She will need regular ophthalmologic exams, as she is getting, and monthly LFTs, as she has been doing through her primary care doctoroffice and I thank them for sending them down to us in [place]. She is obtaining a new primary care doctor so I will cc a copy of this note to her. We will plan on seeing Mandy after Ag[place]. Should she have any problems, questions or concerns in the interim, she should not hesitate to contact our office. She is going to get a flu shot this year, which I agree with. Patient was educated on the plan and verbalized understanding. There were no barriers to learning. Signed by Marybeth Hair MD 05/24/2008 13:39 Marybeth Hair MD - Marybeth Hair MD - DD Job ID: [id number] Doc ID: [id number] cc: MD Nakita Kaur MD, [place] [address]* documented in this encounter Plan of Treatment Upcoming Encounters Date Type Specialty Care Team Description 06/05/2022 Office Visit Dermatology Pedro Phan MD 111 [facility], [facility], [address] [place], [place] [phone] (Wo rk) documented as of this encounter Visit Diagnoses Not on filedocumented in this encounter Care Teams Foreclosure Field Inspector Relationship Specialty Start Date End Date Nakita Pruitt MD PCP - General 12/24/08 01/03/17 [facility] [address] [place], [place] [phone] Mandy Liriano MD PCP - General 11/17/08 12/23/08 [address] [place], [place] [phone] documented as of this encounter
--- OUTSIDE RECORDS SUMMARY | 2022-02-08 09:13 | XMS_ITS | Encounter Summary ---
:1945 Author Organization [facility] Address [address] [place] [address] Care Team Providers Name Role Phone Provider, Unknown Unavailable Unavailable Encounter Details Date Type Department Care Team Description 05/06/2019 Hospital Visit [facility] Clair [place], [place] [address] [place] [address] [place] [address] (Wo rk) Social History Tobacco Use Types [...] on file documented as of this encounter Functional Status Functional Status Response [...] or older) documented as of this encounter Plan of Treatment Not on filedocumented as of this encounter Procedures Procedure Name Priority Date/Time Associated Comments Diagnosis [facility] HISTORICAL LAB Routine 05/06/2019 7:50 PM Res ults for this RESULT EDT procedure are i n the results section. [facility] HISTORICAL LAB Routine 05/06/2019 7:50 PM Res ults for this RESULT EDT procedure are i n the results section. [facility] HISTORICAL LAB Routine 05/06/2019 7:50 PM Res ults for this RESULT EDT procedure are i n the results section. [facility] HISTORICAL LAB Routine 05/06/2019 7:50 PM Res ults for this RESULT EDT procedure are i n the results section. documented in this encounter Results [facility] HISTORICAL LAB RESULT (05/06/2019 7:50 PM EDT) P athologist Signature Troponin I <0.03 L=0.00 [facility] H=0.03 HISTORICAL NG/ML RESULTS Specimen (Source) Anatomical Collection Method Collection Time Re ceived Time Location / / Volume Laterality 05/06/2019 7:50 PM EDT Clair Henderson MD LAB SEND OUT ORDERABLES Performing Organization Address City/State/ZIP Code Phon e Number [facility] HISTORICAL RESULTS [address] [facility] [place] [address] [facility] HISTORICAL RESULTS [address] [place] [address] (ABNORMAL) [facility] HISTORICAL LAB RESULT (05/06/2019 7:50 PM EDT) Patholo gist Method Time Signature Glucose 112 (H) L=70 H=100 [facility] MG/DL HISTORICAL RESULTS Blood Urea 13 L=8 H=20 [facility] Nitrogen MG/DL HISTORICAL RESULTS Creatinine 0.62 L=0.40 [facility] H=1.00 HISTORICAL MG/DL RESULTS Calcium 10.0 L=8.9 [facility] H=10.3 HISTORICAL MG/DL RESULTS Protein 7.8 L=6.1 [facility] H=7.9 G/DL HISTORICAL RESULTS Albumin 4.6 L=3.5 [facility] H=4.8 G/DL HISTORICAL RESULTS ALT 16 L=7 H=40 [facility] U/L HISTORICAL RESULTS AST 19 L=15 H=41 [facility] U/L HISTORICAL RESULTS Alkaline 73 L=26 H=106 [facility] Phosphatase U/L HISTORICAL RESULTS Bilirubin 0.5 L=0.3 [facility] H=1.2 HISTORICAL MG/DL RESULTS Sodium 141 L=136 [facility] H=144 HISTORICAL mmol/L RESULTS Potassium 3.6 L=3.6 [facility] H=5.1 HISTORICAL mmol/L RESULTS Chloride 102 L=101 [facility] H=111 HISTORICAL mmol/L RESULTS Carbon Dioxide 30 L=22 H=32 [facility] mmol/L HISTORICAL RESULTS Specimen (Source) Anatomical Collection Method Collection Time Re ceived Time Location / / Volume Laterality 05/06/2019 7:50 PM EDT Clair Henderson MD LAB SEND OUT ORDERABLES Performing Organization Address City/[facility] Phon e Number [facility] HISTORICAL RESULTS [address] [facility] [address] [facility] HISTORICAL RESULTS [address] [place] [address] (ABNORMAL) [facility] HISTORICAL LAB RESULT (05/06/2019 7:50 PM EDT) [facility] gist Method Time Signature Leukocytes 11.6 (H) L=3.4 [facility] H=10.4 HISTORICAL 10*3/mm3 RESULTS Erythrocytes 5.20 L=3.80 [facility] H=5.20 HISTORICAL 10*6/mm3 RESULTS Hemoglobin 14.7 L=11.6 [facility] H=15.0 HISTORICAL G/DL RESULTS Hematocrit 46 L=35 H=47 [facility] % HISTORICAL RESULTS Mean Corpuscular 89 L=80 H=98 [facility] Volume fL HISTORICAL RESULTS Mean Corpuscular 28.3 L=27.0 [facility] Hemoglobin H=34.0 PG HISTORICAL RESULTS Erythrocyte 43.5 L=37.0 [facility] Distribution H=49.0 fL HISTORICAL Width SD RESULTS Erythrocyte 13.4 L=11.5 [facility] Distribution H=14.5 % HISTORICAL Width CV RESULTS Platelet Count 291 L=145 [facility] H=400 HISTORICAL 10*3/mm3 RESULTS Specimen (Source) Anatomical Collection Method Collection Time Re ceived Time Location / / Volume Laterality 05/06/2019 7:50 PM EDT Clair Henderson MD LAB SEND OUT ORDERABLES Performing Organization Address City/[facility] Phon e Number [facility] HISTORICAL RESULTS [address] [facility] [place] [address] [facility] HISTORICAL RESULTS [address] [place] [address] [facility] HISTORICAL LAB RESULT (05/06/2019 7:50 PM EDT) athologist Signature OT-Mjk-S-Type 16 L=1 H=100 [facility] Natriuretic pg/mL HISTORICAL Peptide RESULTS Specimen (Source) Anatomical Collection Method Collection Time Re ceived Time Location / / Volume Laterality 05/06/2019 7:50 PM EDT Clair Henderson MD LAB SEND OUT ORDERABLES Performing Organization Address City/State/ZIP Code Phon e Number [facility] HISTORICAL RESULTS [address] [facility] [place] [address] [facility] HISTORICAL RESULTS [address] [place] [address] documented in this encounter Visit Diagnoses Not on filedocumented in this encounter Care Teams Internal Consultant Relationship Specialty Start Date End Date Provider, Unknown PCP - Generic [facility] PCP 6 documented as of this encounter
--- OUTSIDE RECORDS SUMMARY | 2022-02-08 09:13 | XMS_ITS | Encounter Summary ---
:[address] [facility] Address [address] [place] [address] Care Team Providers Name Role Phone Nakita Pruitt MD Primary Care Provider Mandy Liriano MD Primary Care Provider Encounter Details Date Type Department Care Team Description 12/23/2007 Before [facility] - Marybeth Hair Converted Visit Maple conversion MD Belinda (Maple) 111 [facility] [address] [phone], [address] [place] [address] (Wo rk) Social History Tobacco Use Types Packs/Day Years Used Date Never Assessed Sex Assigned at Date Recorded Not on file documented as of this encounter Progress Notes Marybeth Hair MD - 04/07/2009 0130 EDT DIVISION OF INFECTIOUS DISEASE PROGRESS/FOLLOWUP NOTE - 12/23/2007 SUBJECTIVE Ms. Foreman is a 62-year-old woman with Mycobacterium avium infection. She was last seen in our clinic on June 25, 2007. For full details of past medical history and HPI please refer to the clinic note from May 2007. Briefly, she had been treated in 2004 to 2005 for her Mycobacterium avium infection with combination therapy including ethambutol and Biaxin for a total of eighteen months. In September 2005 she completed her treatment and was feeling overall well. Then in the summer 2006, she experienced an acute relapse, was re-bronched and found to have further culture with Mycobacterium avium. She was placed back on ethambutol and Biaxin last February and did not improve. She was seen in our linic in initial consultation in May 2007, when we added a third drug, rifampin, to her currentregimen. She has been on ethambutol, clarithromycin and rifampin since May 2007. 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 Ms. Foreman said she was skiing three times a week and felt that her respiratory status was improving. Again today she says overall she feels she is making small, but steady gains in her cardiorespiratory status. She does not have any cough. No hemoptysis. She is able to walk nine holes of golf and pull her own golf cart. She does some light hiking. She is able to keep up with her friends, although says occasionally she will be quite winded but feels that this is certainly no worse and overall better than it was last summer. She feels like she is maintaining her weight. She reports a slight weight loss over the last few months, but she says she has been more active. She certainly is hungry and feels like her appetite is good. She has not had any difficulties with her vision. No blurring of her vision, painful extraocular movements. She has had no nausea, no vomiting, no diarrhea and no skin rash. Her mother who has Alzheimerand lives close by was requiring 24 hour care. At her last visit this was a substantial amount of social stress for Ms. Foreman. She and her elected due to the great expense to discontinue her 24 hour care. This has made a significant improvement in her own life stress. 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 ROS As per HPI, otherwise negative and reviewed in detail. CURRENT MEDICATIONS 1. Rifampin 600 mg daily. 2. Ethambutol 800 mg daily. 3. Clarithromycin 500 mg b.i.d. 4. Lexapro. 5. Pravastatin 20 mg in the AM. 6. Clonazepam 0.5 mg at bedtime 7. GlycoLax 17 mg daily. . 8. Multivitamins. 9. Calcium. 10. [place] 3 daily. OBJECTIVE On exam, she is 61 kilos. She was 62 kilos at our previous visit. Blood pressure is 100/68, temperature 96.8. Generally, she is a very pleasant woman in no apparent distress. She has no evidence of scleral icterus. Pupils are equal, round and reactive to light and accommodation. Extraocular movements are intact. She has no cervical, supraclavicular lymphadenopathy. Shehas a normal S1, S2, without murmur, rub or gallop and her lungs are clear to auscultation anteriorly and posteriorly bilaterally without wheeze or rhonchi. She has no evidence of hepatosplenomegaly. Her abdomen is soft, nontender, nondistended. LABORATORY DATA Ms. Foreman has no new labs since our last visit, although she has been getting monthly LFTs through her primary doctors office. ASSESSMENT AND PLAN 1. Mycobacterium avium infection. We have discussed with Ms. Foreman on several occasions thedifficulty in treating this particular infection. She, however, seems to be doing quite well with tolerating her therapy and is making steady but slow improvements in her respiratory function. At this point we will plan to continue with eighteen monthsof therapy. We will not pursue repeat imaging today as she is doing quite well. I think if there is a change in her cardiopulmonary status we would certainly repeat imaging. However, as things are overall going well we will not do this today. I have asked her to get LFTs here at our office and she has a follow-up ophthalmology exam next week she will return tosee us in [id number] months. I encouraged her if she has any questions or concerns in the interimto contact our office. She will continue to get her monthly LFTs monitored through Dr. Crabtree office. saw and examined the patient with the resident/fellow. I agree with the findings and plan of care documented in the resident's/fellow's note. Signed by Matt Charles MD 01/14/2008 11:08 Reviewed by Marybeth Hair MD 12/31/2007 11:00 Marybeth Hair MD Matt Charles MD - Marybeth Hair MD - DD Job ID: [id number] Doc ID: [id number] cc: Mandy Liriano MD documented in this encounter Plan of Treatment Upcoming Encounters Date Type Specialty Care Team Description 06/05/2022 Office Visit Dermatology Pedro Phan MD [address] [place] [address], [facility] [address] [place], [place] [phone] (Wo rk) documented as of this encounter Visit Diagnoses Not on filedocumented in this encounter Care Teams Director Compensation Relationship Specialty Start Date End Date Nakita Pruitt MD PCP - General 12/24/08 01/03/17 [facility] [address] [place], [place] [address] Mandy Liriano MD PCP - General 11/17/08 12/23/08 [address] [place], [place] [phone] documented as of this encounter
--- OUTSIDE RECORDS SUMMARY | 2022-02-08 09:13 | XMS_ITS | Encounter Summary ---
:1945 Author Organization [facility] Address [address] [place] [address] Care Team Providers Name Role Phone Nakita Pruitt MD Primary Care Provider Mandy Liriano MD Primary Care Provider Encounter Details Date Type Department Care Team Description 12/23/2007 Results Only [facility] Marybeth Hair, Infectious Disease - [facility] [phone] [place] [address] [place] [phone] (Arie jones) Social History Tobacco Use Types Packs/Day Years Used Date Never Assessed Sex Assigned at Date Recorded Not on file documented as of this encounter Plan of Treatment Upcoming Encounters Date Type Specialty Care Team Description 06/05/2022 Office Visit Dermatology Pedro Phan MD 111 [facility], [facility], [address] [place], [place] [phone] (Wo rk) documented as of this encounter Procedures Procedure Name Priority Date/Time Associated Comments Diagnosis CREATININE Routine 12/23/2007 13:37 Results for this EDT procedure are i n the results section. HEPATIC FUNCTION Routine 12/23/2007 13:37 Results for this PANEL (ALB,ALK EDT procedure are in PHOS,ALT,AST,DBIL,TO the res ults T HAZEL,TOT PROT) section. documented in this encounter Results (ABNORMAL) LIVER FUNCTION TESTS (12/23/2007 13:37 EDT) Pathologist Sig nature Albumin 4.9 3.4 - 4.9 g/dl [facility] Total Protein 7.1 6.5 - 8.3 g/dl [facility] Total Alkaline 70 38 - 126 U/L [facility] Phosphatase ALT 55 (H) 9 - 52 U/L [facility] AST 37 15 - 46 U/L [facility] Unconjugated Bilirubin 0.3 0.1 - 1.1 mg/dl [facility] Conjugated Bilirubin 0.0 0.0 - 0.3 mg/dl [facility] B Bilirubin, Total <0.5 0.2 - 1.3 mg/dl [facility] Specimen Performing Organization Address City/[facility] Phon e Number [facility] [address] [place] [address] SERVICES [facility] [address] [place] [address] CREATININE (12/23/2007 13:37 EDT) Pathologist Sig nature Creatinine 0.70 0.7 - 1.5 mg/dl [facility] GFR, Calculated >60 ml/min/1.73m2 [facility] Specimen Performing Organization Address City/State/[facility] Phon e Number [facility] [address] [place] [address] SERVICES [facility] [address] [place] [address] documented in this encounter Visit Diagnoses Not on filedocumented in this encounter Care Teams Hospital Cleaner Relationship Specialty Start Date End Date Nakita Pruitt MD PCP - General 12/24/08 01/03/17 [facility] [address] [place], [place] [address] Mandy Liriano MD PCP - General 11/17/08 12/23/08 [address] [place], [place] [address] documented as of this encounter
--- OUTSIDE RECORDS SUMMARY | 2022-02-08 09:13 | XMS_ITS | Encounter Summary ---
:1945 Author Organization [facility] Address [address] [place] [address] Care Team Providers Name Role Phone Nakita Pruitt MD Primary Care Provider Reason for Visit Reason Onset Date Comments Other 08/22/2009 Encounter Details Date Type Department Care Team Description 08/22/2009 Telephone [facility] Fadi Gamez, PhD [place] [address] Social History Tobacco Use Types Packs/Day Years Used Date Never Assessed Sex Assigned at Date Recorded Not on file documented as of this encounter Miscellaneous Notes Telephone Encounter - Elisa Olson - 08/22/2009 1147 EST Pt cancelled her appointment with you next Tuesday 08/29. She asked that I let you know that she is doing well, and will not be coming back. documented in this encounter Plan of Treatment Upcoming Encounters Date Type Specialty Care Team Description 06/05/2022 Office Visit Dermatology Pedro Phan MD 111 [facility], [facility], [address] [place], [place] [phone] (Wo rk) documented as of this encounter Visit Diagnoses Not on filedocumented in this encounter Care Teams Devil Dog Relationship Specialty Start Date End Date Nakita Pruitt MD PCP - General 12/24/08 01/03/17 [facility] [address] [place] [address] documented as of this encounter
--- OUTSIDE RECORDS SUMMARY | 2022-02-08 09:13 | XMS_ITS | Encounter Summary ---
:1945 Author Organization [facility] Address [address] [place] [address] Care Team Providers Name Role Phone Tony Fuller PA-C Primary Care Provider [phone] Encounter Details Date Type Department Care Team Description 09/26/2021 Lab Requisition [facility] Outr Resulting Lab, Pathology & Laboratory Provider [facility] [address] [place], [place] [phone] Social History Tobacco Use Types Packs/Day Years Used Date Former Smoker Smokeless Tobacco: Never Used Sex Assigned at Date Recorded Not on file documented as of this encounter Plan of Treatment Upcoming Encounters Date Type Specialty Care Team Description 06/05/2022 Office Visit Dermatology Pedro Phan MD 111 [facility], [facility], [address] [place], [place] [phone] (Wo rk) documented as of this encounter Procedures Procedure Name Priority Date/Time Associated Diagnosis Comme nts COVID-19 TEST [facility] Today 09/25/2021 14:10 LAB PCR EDT COVID-19 TESTING Routine 09/25/2021 14:10 Results for this EDT procedure are i n the results section. documented in this encounter Results COVID-19 TEST [facility] LAB PCR (09/25/2021 14:10 EDT) Specimen Swab Performing Organization Address City/State/ZIP Code Phon e Number [facility] [address] [place] [address] SERVICES COVID-19 TESTING (09/25/2021 14:10 EDT) COVID-19 rt-PCR Negative Negative [facility] Result Comment: [facility] This test has not been FDA c leared or approved. This test has been authorized by FDA under an EUA for use by authorized laboratories. This test has been authorized only for detection of nucleic acid fro SERVICES m 2019-nCoV, not for any oth er viruses or pathogens. This test is only authorized for the duration of the declaration that circumstances exist justifying the authorization of emergency use of in vitro d iagnostic tests for detectio n and/or diagnosis of 2019-nCoV under section 564(b)(1) of Act, 21 U.S.C ?? 360bbb-3(b) (1), unless the authorization is terminated or revoked sooner. Negative results do not prec lude 2019-nCoV infection and should not be used as the sole basis for treatment or other patient management decisions. Negative results must be combined with clinical observa tions, patient history, and epidemiological informatio n. Testing was performed using the deo SARS-CoV-2 assay ([employer] on the Deo 6800 System Performing Lab Deo 68[address] [facility] Lab [facility] SERVICES Specimen Swab Performing Organization Address City/State/ZIP Code Phon e Number [facility] [address] [place] [address] SERVICES documented in this encounter Visit Diagnoses Not on filedocumented in this encounter Care Teams Licensed Mental Health Counselor Relationship Specialty Start Date End Date Tony Fuller PA-C PCP - General 01/04/[address] [place] [phone] documented as of this encounter
--- OUTSIDE RECORDS SUMMARY | 2022-02-08 09:13 | XMS_ITS | Encounter Summary ---
:1945 Author Organization [facility] Address [address] [place] [address] Care Team Providers Name Role Phone Nakita Pruitt MD Primary Care Provider Tony Fuller PA-C Primary Care Provider [phone] Encounter Details Date Type Department Care Team Description 04/12/2010 Historical Results [facility] - Kaiden Lind, Only [facility] - [place] us DO [address] [place] [address] [address], [address] [place] [address] Social History Tobacco Use Types Packs/Day Years Used Date Never Assessed Sex Assigned at Date Recorded Not on file documented as of this encounter Plan of Treatment Upcoming Encounters Date Type Specialty Care Team Description 06/05/2022 Office Visit Dermatology Pedro Phan MD 111 [facility], [facility], [address] [place], [place] [address] (Wo rk) documented as of this encounter Procedures Procedure Name Priority Date/Time Associated Diagnosis Comme nts PAP TEST Routine 04/12/2010 Results for thi s procedure are in the resu lts section. documented in this encounter Results PAP TEST (04/12/2010) Specimen Narrative [facility] - 010 15:35 EDT Name: MANDY TODD ? : 43 ?Age/Sex: 73/F ?Unit#: [id number] ? Loc: AGO ? Status: REG POV ?? Reg Date: 04/12/10 ? Pt.Phone Number : ? Specimen: [id number] ?DON LOREDO: BARNEYT ?Spec Date:04/12/10 ? Physician Copies: ?Richard Lind DO Tissues: ? Cervical/Endo Pap ?Mandy Liriano ? CPT: 62400 ?? Units: ??1 ? CYTOLOGY DIAGNOSIS SPECIMEN ADEQUACY: ?Satisfactory for evaluation. Transformation zone component present. GENERAL CATEGORIZATION: ?Negative fo r Intraepithelial Lesion or Malignancy DESCRIPTIVE DIAGNOSIS: ? Negative fo r Intraepithelial Lesion or Malignancy. RECOMMENDATIONS/COMMENTS: ?None. ORDER QUERIES: LMP: ?? - ?Pregna nt? N Post ? N ??PREVIOUS ATYPICAL: N BCP/HRT? N Rad Rx? N IUD? N ??PAP PLUS HPV? N ??REFLEX TO HR-HPV IF ASCUS ?? REFLEX TO HPV 16/18 IF HPV POS/PAP NEG ?? HPV REGARDLESS?RFLX HPV IF LSIL ?? IF ASCUS DO HPV? Y Signed Heidy Mcneil CT(ASCP) 04/14/10 ? By the signature above, the attending ph ysician certifies that he/she has personally conducted a gross and/or microscopic exa mination of the described specimens and rendered or confirmed the above diagnosi s. Test Performed by [facility], [address] [address] Yeast Cake Cutter: Sapphire Covington MD PHD Performing Organization Address City/State/ZIP Code Phon e Number [facility] [address] [place], [place] [phone] [place] [address] LAB documented in this encounter Visit Diagnoses Not on filedocumented in this encounter Care Teams Team Lead Relationship Specialty Start Date End Date Nakita Pruitt MD PCP - General 12/24/08 01/03/17 [facility] [address] [place], [place] [address] Tony Fuller PA-C PCP - General 01/04/17 [address] [place] [phone] documented as of this encounter
--- OUTSIDE RECORDS SUMMARY | 2022-02-08 09:13 | XMS_ITS | Encounter Summary ---
:1945 Author Organization [facility] Address [address] [place] [address] Care Team Providers Name Role Phone Nakita Pruitt MD Primary Care Provider Mandy Liriano MD Primary Care Provider Encounter Details Date Type Department Care Team Description 08/05/2008 Before [facility] - Marybeth Hair Converted Visit Maple conversion MD Belinda (Maple) 111 [facility] [address] [phone] [place] [address] (Wo rk) Social History Tobacco Use Types Packs/Day Years Used Date Never Assessed Sex Assigned at Date Recorded Not on file documented as of this encounter Progress Notes Marybeth Hair MD - 02/05/2009 0207 EDT DIVISION OF INFECTIOUS DISEASE PROGRESS/FOLLOWUP NOTE - 08/05/2008 ALPA Galvan is 62-year-old woman who returns to the infectious disease clinic for 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 She was last seen in our clinic on April 28, 2008. Since that time, she has remained on her rifampin, ethambutol, and clarithromycin and has overall been doing well. She says she feels like from a respiratory standpoint her symptoms have improved. She makes no sputum.She is not coughing. She says her energy level is increasing, although she may attribute some of this to a recent addition of Paxil to her medication list. Recently, she has been through a very difficult and stressful timeover the last few months and found that her anxiety level was to the point where it prevented her from doing things. She has been followed by her primary care doctor, Jennifer Pruitt, and is currently nowon Paxil and feels like things are better. Her appetite is okay. She is quite energetic still. She is skiing regularly, although she admits sheis ready for the winter to end. She has not had any fevers, chills, or night sweats. She has seen anophthalmologist regularly up in [facility] due to her ethambutol therapy and things are going well. She sees him every three months. CURRENT MEDICATIONS Medications include: 1. Rifampin 600 mg daily. 2. Ethambutol 800 mg daily. 3. Clarithromycin 500 mg p.o. b.i.d. 4. Pravastatin 20 mg daily. 5. Clonazepam just at bedtime. 6. GlycoLax 17 g daily. 7. Multivitamins daily. 8. Calcium. 9. Steger-3 once a day. OBJECTIVE On exam, temperature is 96.7, blood pressure 101/70, weight 59 kg. Generally, she is a very pleasantwoman in no apparent distress. She has no evidence of thrush or oral lesions. No supraclavicular or cervical lymphadenopathy. Normal S1 and S2. Her lungs are clear to auscultation bilaterally. She has no evidence of peripheral rash. LABORATORY DATA Mandy has no new labs since our last visit, but she says she has been getting monthly LFTs. 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 She is currently at the 14 florencia of 18 months total and overall seems to be doing well. I told Mandy that it was difficult to predict a test of cure. Oftentimes, we look for negative sputum. However, she did have that CAT scan last summer and we had talked about repeating it, although I did not feel thiswould change our management. I told Mandy I think at the end of therapy I would plan for her to get a CAT scan and perhaps we will try to obtain sputum at the end of therapy. I am slightly concerned about her pravastatin and her clarithromycin as there is a drug interaction between the two. The clarith romycin can sometimes the levels of statins. I think it is probably worth checking a CK level on nazia well as consideration of discontinuing the statin, although she has certainly done well this whole time and now only has about four months left. I think our plan for now will be to: 1. Continue rifampin, ethambutol, and clarithromycin. 2. She will follow up with her every three month ophthalmology visits. 3. She will continue to get monthly liver function tests. 4. We will plan to check liver function tests, CBC, and CK today. She has a prescription from her primary and so she will get these done up in [facility]. 5. She will follow up here prior to discontinuation of her therapy in approximately four months. At that time, we will repeat a CAT scan in consideration of sputum for test of cure. 6. I think we will plan on checking a CK, but just let it be noted that statin levels can be increased with her clarithromycin therapy. Since she only has 4 months left, I think if her CK is fine I would not change her medications. The patient was educated on the plan and verbalized understanding. There are no barriers to learning. Signed by Marybeth Hair MD 08/12/2008 13:53 Marybeth Hair MD - Marybeth Hair MD - CARLO Job ID: [id number] Doc ID: [id number] cc: MD Nakita Payton MD documented in this encounter Plan of Treatment Upcoming Encounters Date Type Specialty Care Team Description 06/05/2022 Office Visit Dermatology Pedro Phan MD [address] [place] [address], [facility], [address] [place], [place] [phone] (Wo rk) documented as of this encounter Visit Diagnoses Not on filedocumented in this encounter Care Teams Obiee Obia Solution Architect Relationship Specialty Start Date End Date Nakita Pruitt MD PCP - General 6/12/09 6/22/17 [facility] [address] [place], [place] [phone] Mandy Liriano MD PCP - General 11/17/08 12/23/08 [address] [place], [place] [phone] documented as of this encounter
--- OUTSIDE RECORDS SUMMARY | 2022-02-08 09:13 | XMS_ITS | Encounter Summary ---
:1945 Author Organization [facility] Address [address] [place] [address] Care Team Providers Name Role Phone Nakita Pruitt MD Primary Care Provider Mandy Liriano MD Primary Care Provider Tony Fuller PA-C Primary Care Provider [phone] Encounter Details Date Type Department Care Team Description 08/26/2007 Hospital Encounter [place] [facility] [place], Colette [place] [address] [facility] [phone] [place] [address] (Work) [phone] Social History Tobacco Use Types Packs/Day Years Used Date Former Smoker Smokeless Tobacco: Never Used Sex Assigned at Date Recorded Not on file documented as of this encounter Plan of Treatment Upcoming Encounters Date Type Specialty Care Team Description 06/05/2022 Office Visit Dermatology Pedro Phan MD 111 [facility], [facility] [place], [address] [place], [place] [phone] (Wo rk) documented as of this encounter Visit Diagnoses Not on filedocumented in this encounter Care Teams Curriculum Development Coordinator Relationship Specialty Start Date End Date Nakita Pruitt MD PCP - General 12/24/08 01/03/17 [facility] [address] [place], [place] [phone] Mandy Liriano MD PCP - General 11/17/08 12/23/[address] [id number] Tony Fuller PA-C PCP - General 01/04/[address] [place] [phone] documented as of this encounter
--- OUTSIDE RECORDS SUMMARY | 2022-02-08 09:13 | XMS_ITS | Encounter Summary ---
:[address] [facility] Address [address] [place] [address] Care Team Providers Name Role Phone Nakita Pruitt MD Primary Care Provider Encounter Details Date Type Department Care Team Description 12/24/2008 Hospital Encounter [facility] Unknown, P MD vignesh Infectious Disease - Marybeth Hair MD [address] [place] [address], [address] [place] [address] [id number] Social History Tobacco Use Types Packs/Day Years Used Date Never Assessed Sex Assigned at Date Recorded Not on file documented as of this encounter Discharge Disposition Disposition Code Departure Means Destination Home or Self Longterm documented in this encounter Progress Notes Marybeth Hair MD - 12/24/2008 0000 EDT DIVISION OF INFECTIOUS DISEASE PROGRESS/FOLLOWUP NOTE - 12/24/2008 SUBJECTIVE Mandy returns to the infectious disease clinic for a followup visit dated December 24, 2008. Mandy remains on triple therapy, including rifampin, ethambutol, and clarithromycin for her Mycobacterium avium pulmonary infection. She is now over 18 months into therapy. She had a repeat CT scan at [facility] three days ago, which I do not have the results of. Overall, Mandy says she has done quite well. She has had no difficulties with nausea, vomiting, diarrhea. No skin rash. Over the last few months, though she has noticed increasing difficulty sleeping. She has been to see her primary and was started on Paxil and feels that this may be contributing to her decreased sleep. She does report, however, that her energy levels, in terms of her pulmonary endurance, have increased. She reports hiking this winter and going on a hike with some friends in 20-degree weather without shortness of breath or chest pain. She is very anxious to set a date to end her medications. She reports no changes in her vision, no nausea, vomiting or diarrhea. MEDICATIONS Current medications include: 1. Rifampin 600 mg daily. 2. Ethambutol 800 mg daily. 3. Clarithromycin 500 mg p.o. b.i.d. 4. Pravastatin 20 mg daily. 5. GlycoLax 17 grams daily p.r.n. 6. Paxil 40 mg daily. OBJECTIVE On exam, temperature is 96.6, blood pressure 108/70. Weight 61 kilos. Her last weight was 59 kilos. She is generally a very pleasant woman in no apparent distress. She has normal S1, S2 without murmurs, rubs or gallops. Her lungs are clear to auscultation bilaterally posteriorly and anteriorly. LABORATORIES She has no new labs. ASSESSMENT AND PLAN Mycobacterium avium pulmonary infection now status post over 18 months of triple therapy. Mandy and I elected that we would discontinue her current medications and follow clinically. I told her I wouldfollowup with the results of the CT scan from [facility] and send her a copy of the report. Our plan will be as follows: 1. She will discontinue her rifampin, ethambutol, and clarithromycin. 2. I will obtain copies from [facility] regarding her most recent chest CT scan and the previous chest CT scan on disk to have them loaded here in our radiology department. 3. She will follow up as needed. I did not set up a followup appointment for her. I told her should she develop any problems in the future, we would be happy to see her. 4. She will discontinue her monthly labs. 5. She will follow up with her primary, Dr Nakita Pruitt, as needed. Patient was educated on the plan and verbalized understanding. There were no barriers to learning. Electronically Signed by Marybeth Hair MD 01/04/2009 16:21 Marybeth Hair MD - Marybeth Hair MD - DS Job ID: [id number] Doc ID: [id number] cc: MD Nakita Payton MD documented in this encounter Plan of Treatment Upcoming Encounters Date Type Specialty Care Team Description 06/05/2022 Office Visit Dermatology Pedro Phan MD [address] [place] [address], [facility], [facility] [address] [place], [place] [address] (Wo rk) documented as of this encounter Visit Diagnoses Not on filedocumented in this encounter Care Teams Web Press Operator Apprentice Relationship Specialty Start Date End Date Nakita Pruitt MD PCP - General 12/24/08 01/03/17 [facility] [address] [place] [address] documented as of this encounter
--- OUTSIDE RECORDS SUMMARY | 2022-02-08 09:13 | XMS_ITS | Encounter Summary ---
:1945 Author Organization [facility] Address [address] [place] [address] Care Team Providers Name Role Phone Nakita Pruitt MD Primary Care Provider Mandy Liriano MD Primary Care Provider Encounter Details Date Type Department Care Team Description 04/15/2000 Results Only [facility] - Shania Downey, Chr istopher, conversion DO [address] [facility] [address] [facility] [address],[facility] [address] [place], [place] [id number] [place] [id number] (Arie jones) Social History Tobacco Use Types Packs/Day Years Used Date Never Assessed Sex Assigned at Date Recorded Not on file documented as of this encounter Plan of Treatment Upcoming Encounters Date Type Specialty Care Team Description 06/05/2022 Office Visit Dermatology Pedro Phan MD 111 [facility], [facility] [place], [address] [place] [address] (Wo rk) documented as of this encounter Procedures Procedure Name Priority Date/Time Associated Diagnosis Comme nts SURGICAL PATHOLOGY Routine 04/15/2000 0:00 EDT Re sults for this procedure are i n the results section. documented in this encounter Results SURGICAL PATHOLOGY (04/15/2000 0:00 EDT) Pathology Report: SURGICAL PATHOLOGY REPORT LINDSAY NUNEZ Reports generated via electronic interface contain aaliyah ginal data; LAB however they are lacking the format of the original re port. Caution should be taken when reading/interpreting unfo rmatted reports. Name: ? MANDY TODD ? Accession #: ? [id number] ? : ? 1945 (Age: 54) ??F ? Collect Date: ? 04/15/2000 ? Location: ? [facility] ? Receive Date: ? Provider: JAVIER DOWNEY DO Copy to: RAUL VALDERRAMA MD ? Final Pathologic Diagnosis: ? Skin of forehead, right, excision: - Sebaceous hyperplasia. Document reviewed and electronically signed by: BRANDT MCDONOUGH MD Report ??Date: 04/18/2000 09:49 By the signature above, the attending physician certif ies that he/she has personally conducted a gross and/or microscopic examin ation of the described specimens and rendered or confirmed the above diagnosi s. Specimen(s) Received: ? R forehead Clinical History: ? Skin lesion forehead Gross Description: ? Received in formalin labelled Ahsan and R forehead is an elliptical excision of skin which measu res 0.7 x 0.2 cm excised to a depth of 0.3 cm. ??The specimen is serially section ed with the distal tips submitted reverse en face as (A1) and the body of the ellipse as (A2). ??(Dr. Bozena cortes)/[facility] End of Report Specimen Performing Organization Address City/State/ZIP Code Phon e Number [facility] [address] [place] [id number] [address] [facility] [address] [place] [address] documented in this encounter Visit Diagnoses Not on filedocumented in this encounter Care Teams Admissions Assistant Relationship Specialty Start Date End Date Nakita Pruitt MD PCP - General 12/24/08 01/03/17 [facility] [address] [place], [place] [address] Mandy Liriano MD PCP - General 11/17/08 12/23/08 [address] [place], [place] [phone] documented as of this encounter
--- OUTSIDE RECORDS SUMMARY | 2022-02-08 09:13 | XMS_ITS | Encounter Summary ---
:1945 Author Organization [facility] Address [address] [place] [address] Care Team Providers Name Role Phone Nakita Pruitt MD Primary Care Provider Tony Fuller PA-C Primary Care Provider [phone] Encounter Details Date Type Department Care Team Description 09/22/2012 Historical Results [facility] - Farhana Jo, Only [facility] - Main [facility] [address] [place] [address] [facility], [address] [place] [address] Social History Tobacco Use Types Packs/Day Years Used Date Never Assessed Sex Assigned at Date Recorded Not on file documented as of this encounter Plan of Treatment Upcoming Encounters Date Type Specialty Care Team Description 06/05/2022 Office Visit Dermatology Pedro Phan MD 111 [facility], [facility], [address] [place], [place] [address] (Wo rk) documented as of this encounter Procedures Procedure Name Priority Date/Time Associated Diagnosis Comme nts SURGICAL PATHOLOGY Routine 09/22/2012 Results f or this procedure are i n the results section . documented in this encounter Results SURGICAL PATHOLOGY (09/22/2012) Specimen Narrative [facility] - 013 12:38 EDT PREOP POSTMENOPAUSAL SPOTTING Procedure: EMB Tissue Removed ENDOMETRIAL LMP: Prev.Abn Pap: 1995 (POST Name: MANDY TODD ? : [birth year] ?Age/Sex: 73/F ?Unit#: [id number] ? Loc: AGO ? Status: REG POV ?? Reg Date: 09/22/12 ? Pt.Phone Number : ? Specimen: [id number] ? STA TUS: SOUT ?Spec Date:09/22/12 ? Physician Copies: ?Farhana Jo MD ?? Tissues: A ?? Female Reproductive System (ENDOMETRIUM) ? Nakita Pruitt MD ? CPT: 49340 ?? Units: ??1 ?FINAL DIAGNOSIS ? Endometrium, biopsy; ? - Rare fragments of inactive endo metrium. ? - Scant fragments of benign endoc ervical tissue with abundant mucus. ? GROSS DESCRIPTION ? Received in formalin labeled with the patient's name is an estimated 0.4 cc ? aggregate of castorena-pink tissue frag ments filtered, e.s 1. ??CP ?? PREOP DX/CLINICAL HISTORY ?Postmenopausal bleeding. Signed ____(signature on file)____ Sapphire Boone M.D. 09/23/12 By the signature above, the attending ph ysician certifies that he/she has personally conducted a gross and/or microscopic exa mination of the described specimens and rendered or confirmed the above diagnosi s. Test Performed by [facility], [address] [place] [address] Tin Tie Machine Operator Automatic: Sapphire Covington MD PHD Performing Organization Address City/State/[facility] Code Phon e Number [facility] [address] [place] [address] LAB documented in this encounter Visit Diagnoses Not on filedocumented in this encounter Care Teams Java J2Ee Technical Lead Relationship Specialty Start Date End Date Nakita Pruitt MD PCP - General 12/24/08 01/03/17 [facility] [address] [place] [address] Tony Fuller PA-C PCP - General 01/04/17 [address] [place] [phone] documented as of this encounter
--- OUTSIDE RECORDS SUMMARY | 2022-02-08 09:13 | XMS_ITS | Encounter Summary ---
:1945 Author Organization [facility] Address [address] [place] [address] Care Team Providers Name Role Phone Nakita Pruitt MD Primary Care Provider Mandy Liriano MD Primary Care Provider Encounter Details Date Type Department Care Team Description 08/26/2007 Before [facility] - Marybeth Hair Converted Visit Maple conversion MD Belinda (Maple) 111 [facility] [address] [place] [address], [address] [place] [phone] (Wo rk) Social History Tobacco Use Types Packs/Day Years Used Date Never Assessed Sex Assigned at Date Recorded Not on file documented as of this encounter Progress Notes Marybeth Hair MD - 04/11/2009 1053 EDT DIVISION OF INFECTIOUS DISEASE PROGRESS/FOLLOWUP NOTE - 08/26/2007 SUBJECTIVE Ms. Foreman is a 61-year-old woman with Mycobacterium avium infection last seen in our clinic on May 27, 2007. Please see that note for full details of her past medical history. In brief, she had been treated in 2004 to 2005 for HARPREET with ethambutol and Biaxin for 18 months. She completed her treatment in September 2005 and overall was feeling well. She then describes in the summer of 2006 experiencing a relapse. She was rebronched and found to have Mycobacterium avium infection. She was placed back on ethambutol and Biaxin in late February and says she did not improve. She returned to our clinic forinitial evaluation in May 2007. At that time we discussed with her the importance of a three-drug regimen for treating Mycobacterium avium infection. We added rifampin to her medication regimen at that time. I spoke with Mandy by phone about a weekafter she initially started on her rifampin in conjunction with her other two drugs. She said she had some nausea and was having difficulty tolerating the regimen, but she wanted to give it another week. It sounds like things improved. Mandy said thatoverall she does not feel great. She feels some baseline nausea. Her sleep has been quite disturbed. She describes early awakenings and difficulty falling asleep. She has not had any diarrhea or abdominalpain. No visual symptoms. No diplopia. No photosensitivity. No changes in her vision. No blurriness of vision. No eye pain. Mandy describes that her mother has end-stage Alzheimers and has required 24 hour home care. 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 Mandy and I did discuss the possibility that her symptoms of depression may be exacerbated given the sleep difficulties, the difficulties with her own health, and all these external family pressures. I advised Mandy to make sure she follows up with her primary care because I am worried that some of her overall not feeling well maybe related to depression. Mandy says her weight has been stable. She said that she and her since they have sold their house have moved temporarily to [facility]. She says she skis at least two to three times a week and can still do [employer] and feels her pulmonary status is overall quite stable. She has not had any hemoptysis. No diarrhea. No dysuria. No skin rashes. MEDICATIONS 1. Clonazepam 0.5 mg daily p.r.n. 2. GlycoLax. 3. Pravastatin. 4. Lexapro. 5. Clarithromycin 500 mg b.i.d. 6. Ethambutol 800 mg daily. 7. Rifampin 600 mg daily. OBJECTIVE On exam, she weighs 55 kilos. She is generally a very pleasant woman in no apparent distress. She has no evidence of scleral icterus. Extraocular movements are intact. She has no cervical, supraclavicular, or axillary lymphadenopathy. She has normal S1/S2. Her lungs are clear to auscultation with the exception of a faint rhonchi which clears in the right base. Her abdomen is soft, nontender, nondistended. She has no peripheral edema or rash. LABORATORIES Her last laboratory values were from August 22, 2007, at [facility]. These demonstrated a creatinine of 0.7, alk phos of 77, AST 27, ALT 57, bilirubin of 0.12. A complete blood count demonstrates a white count of 7.6, H and H of 14 and 43, and platelets of 256. ASSESSMENT/PLAN 1. Mycobacterium avium infection. Mandy really wants to proceed and continue with her current therapy. I told her if her therapy was becoming unmanageable that we could easily stop. I advised her that if we were going to stop medication, that we would need to stop all three and advised her not to dropthe rifampin out of her regimen- or any of the other drugs out of her regimen without calling us first. Mandy has an appointment with ophthalmology on September 19. Additionally she will follow up here in about three to four months. We will likely repeat a CT scan of her chest at that time. She will continue with her current regimen of clarithromycin, ethambutol, and rifampin. 2. Sleep disturbances/depression. I asked Mandy to follow up with her primary care physician. She assures me that she will follow up in the next couple of weeks. I told Mandy to contact our office if there were any concerns or questions or if there was anything we could do to further assist her. The patient was educated on the plan, verbalized understanding. There were no barriers to learning. saw and examined the patient with the resident/fellow. I agree with the findings and plan of care documented in the resident's/fellow's note. Signed by Matt Charles MD 09/24/2007 10:11 Reviewed by Marybeth Hair MD 2007 18:11 Marybeth Hair MD Matt Charles MD D: - Marybeth Hair MD - DS Job ID: [id number] Doc ID: [id number] cc: MD Ta Payton MD documented in this encounter Plan of Treatment Upcoming Encounters Date Type Specialty Care Team Description 06/05/2022 Office Visit Dermatology Pedro Phan MD 111 [facility], [facility], [address] [place], [place] [address] (Wo rk) documented as of this encounter Visit Diagnoses Not on filedocumented in this encounter Care Teams Statement Request Clerk Relationship Specialty Start Date End Date Nakita Pruitt MD PCP - General 12/24/08 01/03/17 [facility] [address] [place] [id number] Mandy Liriano MD PCP - General 11/17/08 12/23/08 [address] [place], [place] [phone] documented as of this encounter
--- OUTSIDE RECORDS SUMMARY | 2022-02-08 09:13 | XMS_ITS | Encounter Summary ---
:1945 Author Organization [facility] Address [address] [place] [address] Care Team Providers Name Role Phone Nakita Pruitt MD Primary Care Provider Mandy Liriano MD Primary Care Provider Encounter Details Date Type Department Care Team Description 02/11/2006 Before [facility] - Piter Jalloh MD Converted Visit Maple conversion 111 [facility] [address] [place] [id number] [place] [address], [place] [address] (Wo rk) Social History Tobacco Use Types Packs/Day Years Used Date Never Assessed Sex Assigned at Date Recorded Not on file documented as of this encounter Consult Notes Jorge Jalloh MD - 07/08/2009 1124 EST DIVISION OF GENERAL SURGERY CONFIRMATORY CONSULTATION - 02/11/2006 P: DIVERTICULITIS Mrs. Foreman is referred by Dr. Bhargav Gillis from [facility] for evaluation and second opinion regarding the need for surgery for diverticulitis. HISTORY OF PRESENT ILLNESS: Ms. Foreman has had three bouts of acute pancreatitis. These have been quite severe, the last one was in December and lasted for about ten days. Her mother and her grandmother have had significant problems with diverticulitis. Her grandmother apparently from complications. Apparently her mother had a colostomy. There is a history of polycystic kidneys on her maternal side, two uncles, an aunt and a female cousin. Her mother had rheumatoid arthritis. She was diagnosed with MAC and treated with antibiotics which she finished in September of 2005. PAST SURGICAL HISTORY: C sections in 1968 and 1971 through long midline incisions. MEDICATIONS: Pravachol 20 mg for cholesterol and Zomig as needed for her migraines. REVIEW OF SYSTEMS: Significant for history of hypercholesterolemia and apparently thyroid problems in the past. She denies diabetes or any weight loss or other constitutional symptoms. She denies any HEENT symptoms. She has had a cough and had the Microbacterium/AVM complex treated in september of 2005 when it was completed of treatment. There are no other respiratory symptoms. She denies any cardiovascular symptoms. She has had some bloody bowel movements at times. She had a colonoscopy a coupleof years ago that showed diverticulosis. She has had the two bouts of diverticulitis but no other GI complaints. She has a history of urinary tract infections but none in the past year. She denies any skin problems, hematologic problems, musculoskeletal or neurologic problems other than an occasional migraine. O: BP is 146/88, pulse 20, respirations 16, weight 132.4. Her abdominal exam shows some left lower quadrant tenderness. I could not feel any masses. There is a well healed lower midline incision. A: Recurrent diverticulitis with a strong family history of diverticulitis. P: I agree with the decision to perform a colectomy for her diverticulitis. This likely can be done laparoscopically. I gave her some literature on diverticulosis anddiverticulitis and laparoscopic colon surgery. She will proceed with her surgery as planned down at [facility]. Signed by Jorge Jalloh MD, FACS 02/13/2006 10:50 Kishor Jalloh MD, [phone] C Hebert, MD, FACS Jorge Jalloh MD, FACS [phone] - Jorge Jalloh MD, FACS P - cd Job ID: tape Document ID: [id number] cc: BhargavMD Kolton Lowe DO documented in this encounter Plan of Treatment Upcoming Encounters Date Type Specialty Care Team Description 06/05/2022 Office Visit Dermatology Pedro Phan MD 111 [facility], [facility], [address] [place], [place] [address] (Wo rk) documented as of this encounter Visit Diagnoses Not on filedocumented in this encounter Care Teams Casino Surveillance Officer Relationship Specialty Start Date End Date Nakita Pruitt MD PCP - General 12/24/08 01/03/17 [facility] [address] [place], [place] [address] Mandy Liriano MD PCP - General 11/17/08 12/23/08 [address] [place], [place] [phone] documented as of this encounter
--- OUTSIDE RECORDS SUMMARY | 2022-02-08 09:13 | XMS_ITS | Encounter Summary ---
:1945 Author Organization [facility] Address [address] [place] [address] Care Team Providers Name Role Phone Tony Fuller PA-C Primary Care Provider [phone] Reason for Visit Reason Comments Follow-up Spots on face Encounter Details Date Type Department Care Team Description 06/02/2021 Office Visit [facility] Pedro Phan Seborrh eic keratoses (Primary Dx); Dermatology - [facility] MD Edwin Milial cyst; [address] History of basal cell cancer [address] [place], [place] [id number] [place] [address] [facility] [address] [place] [phone] (Wo rk) Social History Tobacco Use Types Packs/Day Years Used Date Former Smoker Smokeless Tobacco: Never Used Sex Assigned at Date Recorded Not on file documented as of this encounter Progress Notes Mayo Godoy - 06/02/2021 1245 EST DIVISION OF DERMATOLOGY PROGRESS NOTE - 06/01/2021 No chief complaint on file. DERMATOLOGIC HISTORY: No specialty comments available. No past medical history on file. SUBJECTIVE: Ms. Foreman has a history of BCC. She presents for a skin examination with the following new concerns today: ?? Bumps of her central face that she finds undesirable. Denies any bleeding, tenderness or growth. ?? No additional concerns. For full Medical, Surgical, Family, and Social histories as well as Review of Systems, Medications and Allergies please see those sections of this encounter in the electronic chart which I have personally reviewed. OBJECTIVE: Significant findings noted below: ?? Well-healed surgical scar with no signs of reoccurrence ?? 9mm gritty, erythematous thin plaque of the left malar cheek ?? 3mm gritty erythematous papule of the left buccal cheek ?? 4mm gritty, papules of the right forehead, central glabella and central lower forehead ?? Small, white papule of left cheek consistent with Milia ASSESSMENT & PLAN: 1) Seborrheic Keratoses of left malar cheek, left buccal cheek, right forehead, central glabella, central lower forehead ?? CRYOSURGERY: Cryosurgery recommended for treatment. Risks of the procedure including pain, blistering, possible infection, resultant hypo-or hyperpigmentation and possibility of incomplete resolution discussed. After verbal obtaining verbal consent, cryosurgery performed to a total of 6 seborrheic keratoses on the above listed locations. Expected results and wound care reviewed. Patient advised toreturn for reevaluation if the treated lesions do not resolve or recur. 2) Milia of Left Cheek ?? Lesion removed by Dr. Phan with No 11 blade 3) History of BCC ?? PREVENTION: Patient advised that individuals with a history of skin cancer have an increased riskfor development of new skin cancers. Recommended regular self skin examinations and to call our office for any new, changing or ugly duckling skin lesions prior to next appointment. The importance ofsun avoidance and sun protection with clothing and broad spectrum sunscreens (SPF 30 or above) for primary prevention of new skin cancers reviewed. Return for follow up in 1 year, sooner as needed . Patient charged $50 for her cosmetic procedures (Cryotherapy of Seborrheic Keratoses and Milia Removal) today. Mayo Godoy 06/01/2021 16:31 Attestation statement: I performed or was present during the camara or critical portions of the visit and participated in the management of the patient. I agree with the findings and plan of care documented in the resident's/fellow's note. I personally performed the procedure Pedro Phan MD Chief of Dermatology [facility] documented in this encounter Plan of Treatment Upcoming Encounters Date Type Specialty Care Team Description 06/05/2022 Office Visit Dermatology Pedro Phan MD [address] [facility], [facility], [address] [place], [place] [phone] (Wo rk) documented as of this encounter Visit Diagnoses Diagnosis Seborrheic keratoses - Primary Milial cyst Sebaceous cyst History of basal cell cancer Personal history of other malignant neop lasm of skin documented in this encounter Historical Medications This list may reflect changes made after this encounter. Medication Sig Dispensed Refills Start Date End Date SUMAtriptan (IMITREX) 50 mg Take 100 mg by mouth 0 tablet as needed for Migraine. diazePAM (VALIUM) 10 mg Take 10 mg by mouth 0 tablet every 6 hours as needed for Anxiety. levothyroxine (SYNTHROID) Take 50 mcg by mouth 0 50 mcg tablet daily. atorvastatin (LIPITOR) 20 Take 20 mg by mouth 0 mg tablet daily. venlafaxine (EFFEXOR-XR) Take 37.5 mg by 0 37.5 mg XR capsule mouth daily. added in this encounter Care Teams Spray Gun Operator Relationship Specialty Start Date End Date Tony Fuller PA-C PCP - General 01/04/[address] [place] [phone] documented as of this encounter
--- OUTSIDE RECORDS SUMMARY | 2022-02-08 09:13 | XMS_ITS | Encounter Summary ---
:1945 Author Organization [facility] Address [address] [place] [address] Care Team Providers Name Role Phone Nakita Pruitt MD Primary Care Provider Mandy Liriano MD Primary Care Provider Tony Fuller PA-C Primary Care Provider [phone] Encounter Details Date Type Department Care Team Description 12/23/2007 Hospital Encounter [facility] - Osmany Owens MD [address] [place] [phone] [facility] Marybeth Hair MD [address] [phone] [place] [id number] Social History Tobacco Use Types Packs/Day Years Used Date Former Smoker Smokeless Tobacco: Never Used Sex Assigned at Date Recorded Not on file documented as of this encounter Plan of Treatment Upcoming Encounters Date Type Specialty Care Team Description 06/05/2022 Office Visit Dermatology Pedro Phan MD [address] [place] [phone] (Wo rk) documented as of this encounter Visit Diagnoses Not on filedocumented in this encounter Care Teams Mechanical Engineering Specialist Relationship Specialty Start Date End Date Nakita Pruitt MD PCP - General 12/24/08 01/03/17 [facility] [address] [place], [place] [phone] Mandy Liriano MD PCP - General 11/17/08 12/23/[address] [phone] Tony Fuller PA-C PCP - General 01/04/[address] [place] [phone] documented as of this encounter
== END ==
PROVIDERS: PCP Physician Assistant Medical; Visit Provider Physician Assistant Medical
DX: R05.9 Cough, unspecified (principal)
CPT/HCPCS: 36415; 80053; 71046; 85025

== ENCOUNTER 2022-02-08 14:07 | Outpatient (CLI) | payer MEDICARE, SELFPAY ==
[2022-02-08 14:39] LABS: Abs Immature Grans 0.09 10^3/uL (0.0-0.06); Absolute Monocyte Count 0.16 10^3/uL (0.1-0.8); Basophils % 0.2; HCT 41.8 % (36.0-46.0); HGB 13.3 g/dL (11.2-15.7); Immature Grans % 0.7; Lymphocytes % 7.4; MCH 27.9 pg (27.0-33.0); MCHC 31.8 % (32.0-36.0); MCV 88 fL (80-95); MPV 9.5 fL (8.0-11.0); Monocytes % 1.2; Neutrophils % 90.5; Platelet Count 456 10^3/uL (130-400); RBC 4.77 10^6/uL (3.93-5.22); RDW 13.1 % (11.7-14.6); WBC 13.19 10^3/uL (4.4-10.8)
[2022-02-08 14:40] LABS: Absolute Basophil Count 0.03 10^3/uL (0.0-0.2); Absolute Lymphocyte Count 0.98 10^3/uL (1.2-3.4); Absolute Neutrophil Count 11.94 10^3/uL (1.2-6.7)
[2022-02-08 15:41] LABS: ALT 46 U/L (14-59); AST 25 U/L (15-37); Albumin 3.4 g/dL (3.4-5.0); Alkaline Phosphatase 126 U/L (46-116); Anion Gap 7.7 mmol/L (3-11); BUN 17 mg/dL (7-18); Bilirubin, Total 0.2 mg/dL (0.2-1.0); CO2 28.3 mmol/L (21.0-32.0); CREATININE 0.9 mg/dL (0.55-1.02); Calcium 10.3 mg/dL (8.5-10.1); Chloride 102 mmol/L (98-107); Glucose 197 mg/dL (74-106); Potassium 3.8 mmol/L (3.5-5.1); Sodium 138 mmol/L (136-145); Total Protein 7.5 g/dL (6.4-8.2)
== END 2022-02-08 14:08 | disposition home or self-care (01) ==
LOC: LBO 14:07
PROVIDERS: PCP Physician Assistant Medical; Visit Provider Physician Assistant Medical
DX: R05.8 Other specified cough (principal)
CPT/HCPCS: 36415; 80053; 85025

== ENCOUNTER 2022-03-31 10:17 | Emergency (ER) | payer MEDICARE, SELFPAY ==
[2022-03-31 10:28] VITALS: BP 159/105; PULSE 104; RESP 20; TEMP 36.8; O2SAT 97
--- NOTE | 2022-03-31 11:00 | DI.RAD_ITS ---
Exam(s) XR PORTABLE CHEST AP EXAM: XR PORTABLE CHEST AP CLINICAL HISTORY: cough. TECHNIQUE: 2D digital imaging was performed. COMPARISON: CR XR CHEST 2V PA LATERAL from 02/08/2022 FINDINGS: Single AP portable view. Heart size is upper normal. The mediastinum is not widened. Lungs are clear. No infiltrates nor obvious pleural effusions. IMPRESSION: No acute pulmonary findings on this single AP portable view of the chest. DATA REPOSITORY: RADIATION DOSE DELIVERED: All CT scans at this facility use at least one of these dose optimization techniques: automated exposure control; mA and/or kV adjustment per patient size (includes targeted e xams where dose is matched to clinical indication); or iterative reconstruction.
--- NOTE | 2022-03-31 11:08 | W.ED.GENAD ---
Discharge Plan Disposition Patient Disposition: HOME Condition: Stable Discharge Details Clinical Impression: Cough Primary Care Provider: Tony Fuller ED Provider: Félix Forte Home Meds and New Rx's Prescriptions: Continued CPAP miscellaneous atorvastatin 40 mg tablet 40 mg PO DAILY amoxicillin 500 mg capsule 500 mg PO BID Premarin 0.625 mg/gram cream 0.625 mg vaginal DAILY Rx Instructions: off 5 days; repeat cycle levothyroxine 50 mcg tablet 50 mcg PO DAILY ibuprofen 800 MG tablet 800 mg PO PRN albuterol sulfate [Ventolin HFA] 8 GM HFA aerosol inhaler 2 puff Inhalation Q2H PRN sumatriptan succinate 100 mg tablet 100 mg PO ONCE PRN omeprazole [Prilosec] 10 mg capsule,delayed release(DR/EC) 20 mg PO DAILY PRN venlafaxine 37.5 mg Capsule,Extended Release 24hr 37.5 mg PO DAILY diazepam 5 mg Tablet 5 mg PO PRN PRN Ethanbutaol 1,200 mg PO DIRECTED diltiazem HCl 30 mg tablet 30 mg PO DIRECTED PRN (Reason: take 1 tab if heart rate >140 bpm for >10 minutes) Qty: 5 0RF Discharge Instructions Instructions: Acute Cough (ED) Additional Instructions: Chest x-ray is unremarkable. Your COVID test is pending. I recommend trialing adst-ntc-osiocue cough medication such as Delsym as directed. Please watch for new or worsening symptoms and return to the ER for any concerns. Lastly, please contact your potable water treatment operator on Saturday to discuss your ongoing symptoms and need for outpatient reevaluation Medical Decision Making This is a 76-year-old female who had COVID in November, had a full recovery, subsequently treated with doxycycline and steroids in January, reports ongoing dry cough, usually worse at night. Patient states that she had a chest x-ray in January, has contacted her potable water treatment operator, and is concerned that she has not had a repeat chest x-ray. She reports occasional wheezing. Clinically she appears well, nontoxic, I do not appreciate a cough now, lungs are clear to auscultation, she is afebrile her O2 sat is 97% on room air. Will obtain a chest x-ray. We will also send a COVID test. Patient has tried codeine and Tessalon Perles with little relief, we discussed adding on [id number] Delsym Chest x-ray negative Discussed negative chest x-ray with patient. COVID test pending. Patient is relieved that her chest x-ray is unremarkable. We discussed the importance of contacting her potable water treatment operator down at [facility] to discuss the importance of outpatient follow-up, patient may require additional testing such as bronchoscopy, pulmonary function test, CT, etc. for further evaluation of her ongoing symptoms. Standard discharge and return precautions were provided. Patient understands, is agreeable to this plan, and has no additional questions or concerns upon discharge. This documentation was generated using [employer]uation system, please disregard any oddities of phrase or misspellings. Medical Records Medical records reviewed: Yes I reviewed the patient's medical records. Imaging Data Radiologic Study: Attestation: I personally reviewed and interpreted this imaging study as follows: Imaging: X-Ray Radiologist's impression: PROCEDURE INFORMATION: Exam: XR Chest Exam date and time: 03/31/2022 11:22 AM Age: 76 years old Clinical indication: Cough TECHNIQUE: Imaging protocol: Radiologic exam of the chest. Views: 1 view. COMPARISON: CR XR CHEST 2V PA LATERAL 02/08/2022 1:56 PM FINDINGS: Lungs: Unremarkable. No consolidation. Pleural spaces: Unremarkable. No pleural effusion. No pneumothorax. Heart/Mediastinum: Unremarkable. No cardiomegaly. Bones/joints: Unremarkable. IMPRESSION: No acute findings. HPI General Mode of arrival: ambulatory. Date/Time Provider Initiated Documentation: 03/31/22 10:18. Limitations to Documentation: no limitations. Information obtained by: patient. HPI Narrative: This is a 76-year-old female with a past sickle history that includes hyperlipidemia, thyroid disease, GERD, states that she had COVID back in November, had a full recovery in about 3 weeks, subsequently treated in January with doxycycline and steroids by her pulmonology team at [facility], presenting now for an ongoing primarily dry cough worse at bedtime. Patient states that she feels as though she should be having a repeat chest x-ray to be sure there is nothing changing. She denies fever, productive cough, chest pain, shortness of breath, pain or swelling in her legs. She denies any swelling of her legs. She tells me that she has tried codeine as well as Tessalon Perles with little relief. She has been fully vaccinated against COVID Related Data Home Medications Medication Instructions Recorded Confirmed albuterol sulfate 90 mcg/actuation 2 puff inhalation Q2H PRN 06/23/13 08/14/21 aerosol inhaler (Ventolin HFA) ibuprofen 800 mg tablet 800 mg PO PRN 06/23/13 08/14/21 Ethanbutaol 1,200 mg PO DIRECTED 06/18/18 08/14/21 diazepam 5 mg tablet 5 mg PO PRN PRN 06/18/18 03/31/22 diltiazem HCl 30 mg tablet 30 mg PO DIRECTED PRN take 1 06/18/18 08/14/21 tab if heart rate >140 bpm for >10 minutes #5 tabs venlafaxine 37.5 mg 37.5 mg PO DAILY 05/11/19 08/14/21 capsule,extended release 24 hr CPAP miscellaneous 08/03/19 08/14/21 omeprazole 10 mg capsule,delayed 20 mg PO DAILY PRN 08/03/19 03/31/22 release (Prilosec) sumatriptan succinate 100 mg tablet 100 mg PO ONCE PRN 08/03/19 08/14/21 amoxicillin 500 mg capsule 500 mg PO BID 07/10/21 08/14/21 atorvastatin 40 mg tablet 40 mg PO DAILY 07/10/21 03/31/22 conjugated estrogens 0.625 mg/gram 0.625 mg vaginal DAILY 03/08/22 vaginal cream (Premarin) levothyroxine 50 mcg tablet 50 mcg PO DAILY 03/08/22 03/31/22 Previous Rx's Medication Instructions Recorded diltiazem HCl 30 mg tablet 30 mg PO DIRECTED PRN take 1 06/18/18 tab if heart rate >140 bpm for >10 minutes #5 tabs Allergies Allergy/AdvReac Type Severity Reaction Status Date / Time clarithromycin [From Biaxin] Allergy Severe Unverified 03/08/22 11:36 naproxen Allergy Unverified 07/10/21 09:54 propoxyphene Allergy Unverified 07/10/21 09:54 ciprofloxacin [From Cipro] AdvReac Intermediate Verified 07/10/21 09:54 amitriptyline AdvReac Unverified 07/10/21 09:54 cholecalciferol (vitamin D3) AdvReac Unverified 07/10/21 09:54 [cholecalciferol (vit D3)] ergocalciferol (vitamin D2) AdvReac Unverified 07/10/21 09:54 [ergocalciferol (vit D2)] oxycodone HCl AdvReac Unverified 07/10/21 09:54 [From OxyContin] General Stated Complaint: RespSymp SELENE: 4 Review of Systems Constitutional Constitutional: Denies fever(s) and Denies weakness Cardiovascular Cardiovascular: Denies chest pain and Denies dyspnea Respiratory Respiratory: Reports cough, Denies dyspnea and Reports wheezing (Occasional) Gastrointestinal Gastrointestinal: Denies abdominal pain, Denies nausea and Denies vomiting Musculoskeletal Musculoskeletal: Denies back pain Integumentary/Breasts Skin/Breast: Denies rash Neurologic Neurologic: Denies weakness Allergic/Immunologic Allergic/Immunologic: Reports wheezing (Occasional) PFSH All Active Problems Cough (Acute) Recurrent UTI (Acute) Mucocele, buccal (Acute) Oral mucosal lesion (Acute) Supraventricular tachycardia (Chronic) Obstructive sleep apnea (adult) (pediatric) (Acute) 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, soft tissue, and skin (Acute) Medical History Anxiety Cardiac dysrhythmia COPD (chronic obstructive pulmonary disease) Diverticulitis Hyperlipidemia, unspecified Hypothyroidism Insomnia Mycobacterium avium complex colonization Prediabetes Tobacco abuse Urinary tract infection Weight loss Surgical History H/O section History of bowel resection Social History Smoking/Tobacco Use Status: Former Tobacco Use Quit Date: 07/15/79 Tobacco: How many years used: 25 Smoking risk assessment performed?: Yes Alcohol Intake: current Alcohol Intake frequency: a few times a month Drug use: Never Substance use type: does not use What type of physical activity do you participate in: walking and other Details: In[employer], alpine ski, senior exercise class (2x/week) Duration: 45-60 minutes/day Frequency: 3-4 times per week Do you feel safe at home: Yes Do you feel safe in your relationship?: Yes Exam Const General: cooperative, healthy appearing, comfortable and no acute distress Orientation: alert and awake [facility] Head: normal to inspection, normocephalic and atraumatic Face and sinus: normal facial exam Mouth: moist mucous membranes Throat: posterior oropharynx normal Eyes Conjunctivae: conjunctivae normal Neck Neck: normal visual inspection, full ROM, trachea midline and supple Resp Effort & Inspection: normal respiratory effort and able to speak in complete sentences Auscultation: clear to auscultation bilaterally Cardio Rate: regular rate Rhythm: regular rhythm Back/Spine/Pelvis Back: No back tenderness Skin General skin exam: no rashes or lesions noted Neuro General: patient alert, patient awake, moves all extremities and no focal motor deficits Cognition: normal cognition Speech: speech normal Gait: normal gait Motor: muscle tone normal throughout Sensory Exam: no sensory deficits noted Extrem General: normal to inspection, full ROM, capillary refill normal, no pedal edema and no calf tenderness Psych Appearance: grossly normal Mental Status: mental status grossly normal Course Vital Signs Vital signs: Vital Signs Temperature 36.8 C 03/31/22 10:28 Pulse 104 H 03/31/22 10:28 Respiratory Rate 20 03/31/22 10:28 Blood Pressure 159/105 H 03/31/22 10:28 Pulse Oximetry 97 03/31/22 10:28 Temperature 36.8 C 03/31/22 10:28 Temperature Source Tympanic 03/31/22 10:28 Pulse 104 H 03/31/22 10:28 Respiratory Rate 20 03/31/22 10:28 Respiratory Effort Short of Breath 03/31/22 10:33 Respiratory Depth Normal 03/31/22 10:33 Blood Pressure 159/105 H 03/31/22 10:28 Blood Pressure Position Supine 03/31/22 10:28 Pulse Oximetry 97 03/31/22 10:28 Oxygen Delivery Method Room Air 03/31/22 10:28 Oxygen Flow Rate 0 03/31/22 10:28 Pain Level 0 03/31/22 10:28
[2022-03-31 12:04] VITALS: BP 138/88; PULSE 87; RESP 18; O2SAT 97
--- NOTE | 2022-03-31 12:04 | DI.VRAD_ITS ---
PROCEDURE INFORMATION: Exam: XR Chest Exam date and time: 03/31/2022 11:22 AM Age: 76 years old Clinical indication: Cough TECHNIQUE: Imaging protocol: Radiologic exam of the chest. Views: 1 view. COMPARISON: CR XR CHEST 2V PA LATERAL 02/08/2022 1:56 PM FINDINGS: Lungs: Unremarkable. No consolidation. Pleural spaces: Unremarkable. No pleural effusion. No pneumothorax. Heart/Mediastinum: Unremarkable. No cardiomegaly. Bones/joints: Unremarkable. IMPRESSION: No acute findings. Dictated and Authenticated by: Brenda Morris MD. Ordering:PANTERA Heard MD
[2022-03-31 12:53] VITALS: PULSE 78; O2SAT 94
[2022-04-01 11:08] LABS: COVID-19 RT-PCR UVMMC Result Negative (Negative)
== END 2022-03-31 13:27 | disposition home or self-care (01) ==
PROVIDERS: Emergency Provider Physician Assistant; PCP Physician Assistant Medical
DX: R05.9 Cough, unspecified (principal); J44.9 Chronic obstructive pulmonary disease, unspecified; Z86.16 Personal history of COVID-19; Z20.822 Contact with and (suspected) exposure to COVID-19; Z87.891 Personal history of nicotine dependence
CPT/HCPCS: 99282; 99283; U0003; 71045

== ENCOUNTER 2022-04-09 14:07 | Emergency (ER) | payer MEDICARE, SELFPAY ==
[2022-04-09] VITALS (27 sets, daily range): BP systolic 86–149; BP diastolic 54–84; PULSE 68–94; RESP 10–27; TEMP 36.7; O2SAT 90–98
--- NOTE | 2022-04-09 14:00 | RT.EKG_ITS ---
APPROVED REPORT Exam: Resting ECG Reason for Exam: chest pain Patient Location: E HR:93 bpm ECG Measurements Heart Rate 93 AXIS DC 165 P 55 QRSd 93 QRS -81 QT 356 T 61 QTc 444 Conclusion Sinus rhythm...normal P axis, V-rate 60- 99 Inferior infarct, old...Q >35mS, II III aVF Consider anterior infarct...Q >30mS in V2-V5 sinus rhythm at 93, inferior Q waves, poor R wave progression, no major change compared to prior 08/03, no STEMI, nondiagnostic EKG
[2022-04-09 14:59] LABS: Abs Immature Grans 0.12 10^3/uL (0.0-0.06); Absolute Basophil Count 0.04 10^3/uL (0.0-0.2); Absolute Eosinophil Count 0.18 10^3/uL (0.0-0.7); Absolute Monocyte Count 0.87 10^3/uL (0.1-0.8); Basophils % 0.2; HCT 45.2 % (36.0-46.0); Immature Grans % 0.7; Lymphocytes % 22.2; MCH 26.3 pg (27.0-33.0); MCV 85 fL (80-95); MPV 9.8 fL (8.0-11.0); Monocytes % 4.9; Platelet Count 463 10^3/uL (130-400); RBC 5.32 10^6/uL (3.93-5.22); RDW 13.7 % (11.7-14.6); RDW-SD 42.5 fL
[2022-04-09 15:00] LABS: Absolute Lymphocyte Count 3.95 10^3/uL (1.2-3.4); Absolute Neutrophil Count 12.64 10^3/uL (1.2-6.7)
[2022-04-09 15:30] LABS: ALT 32 U/L (14-59); AST 20 U/L (15-37); Albumin 3.5 g/dL (3.4-5.0); Alkaline Phosphatase 147 U/L (46-116); Anion Gap 6.9 mmol/L (3-11); BUN 16 mg/dL (7-18); Bilirubin, Total 0.3 mg/dL (0.2-1.0); CO2 32.1 mmol/L (21.0-32.0); CREATININE 0.9 mg/dL (0.55-1.02); Calcium 10.7 mg/dL (8.5-10.1); Chloride 102 mmol/L (98-107); Estimated GFR 65.84 (mL/min/1.73m2); Glucose 104 mg/dL (74-106); Potassium 3.5 mmol/L (3.5-5.1); Sodium 141 mmol/L (136-145); Troponin I < 50 ng/L (<or=60)
[2022-04-09 15:36] LABS: D-Dimer 601 ng/mlFEU (<500)
--- NOTE | 2022-04-09 15:36 | ED.GENADUL_ITS ---
Discharge Plan Disposition Patient Disposition: STILL A PATIENT Discharge Details Chief Complaint: Chest Pain Primary Care Provider: Tony Fuller ED Provider: Carrie Nicole Home Meds and New Rx's Prescriptions: No Action CPAP miscellaneous atorvastatin 40 mg tablet 40 mg PO DAILY Premarin 0.625 mg/gram cream 0.625 mg vaginal DAILY Rx Instructions: off 5 days; repeat cycle levothyroxine 50 mcg tablet 50 mcg PO DAILY benzonatate 100 mg capsule 100 mg PO BID PRN albuterol sulfate [Ventolin HFA] 90 mcg/actuation HFA aerosol inhaler 2 puff Inhalation Q2H PRN Qty: 6.7 1RF ibuprofen 800 MG tablet 800 mg PO PRN sumatriptan succinate 100 mg tablet 100 mg PO ONCE PRN omeprazole [Prilosec] 10 mg capsule,delayed release(DR/EC) 20 mg PO DAILY PRN prednisone 20 mg tablet 2 tab QPM Label Comments: TAKE TWO TABLETS BY MOUTH DAILY FOR 3 DAYS, THEN TAKE ONE AND ONE-HALF TABLETS DAILY FOR 3 DAYS, THEN ONE TABLET DAILY FOR 3 DAYS, THEN 1/2 diazepam 5 mg Tablet 5 mg PO PRN PRN Ethanbutaol 1,200 mg PO DIRECTED Medical Decision Making Concern for acute coronary syndrome, pulmonary embolism, esophageal spasm, GERD, musculoskeletal pain, other. Exam/history at this time is not consistent with acute aortic pathology, sepsis. Plan for EKG, IV placement, screening labs, IV fluid hydration, imaging pending lab results. Labs reviewed, troponin negative, WBC 17.8, D-dimer 601. Plan for CT chest. Patient reports that she remains asymptomatic on reassessment. Patient signed out to Dr. Tavares at time of shift change with CTA chest, repeat troponin, reassessment pending. Medical Records Medical records reviewed: Yes I reviewed the patient's medical records. Lab Data Lab results reviewed: Yes I reviewed the patient's lab results. Labs: Laboratory Tests Range/Units 04/09/22 04/09/22 04/09/22 14:50 14:50 14:50 WBC (4.4-10.8) 10^3/uL 17.80 H RBC (3.93-5.22) 10^6/uL 5.32 H Hgb (11.2-15.7) g/dL 14.0 Hct (36.0-46.0) % 45.2 MCV (80-95) fL 85 MCH (27.0-33.0) pg 26.3 L MCHC (32.0-36.0) % 31.0 L RDW (11.7-14.6) % 13.7 Plt Count (130-400) 10^3/uL 463 H MPV (8.0-11.0) fL 9.8 Immature Gran % 0.7 Neutrophils % 71.0 Lymphocytes % 22.2 Monocytes % 4.9 Eosinophils % 1.0 Basophils % 0.2 Nucleated RBC % (0.0-0.3) % 0.0 Absolute Neutrophils (1.2-6.7) 10^3/uL 12.64 H Absolute Lymphocytes (1.2-3.4) 10^3/uL 3.95 H Absolute Monocytes (0.1-0.8) 10^3/uL 0.87 H Absolute Eosinophils (0.0-0.7) 10^3/uL 0.18 Absolute Basophils (0.0-0.2) 10^3/uL 0.04 D-Dimer (<500) ng/mlFEU 601 H Sodium (136-145) mmol/L 141 Potassium (3.5-5.1) mmol/L 3.5 Chloride (98-107) mmol/L 102 Carbon Dioxide (21.0-32.0) mmol/L 32.1 H Anion Gap (3-11) mmol/L 6.9 BUN (7-18) mg/dL 16 Creatinine (0.55-1.02) mg/dL 0.9 Est GFR (CKD-EPI 2020) (mL/min/1.73m2) 65.84 Glucose (74-106) mg/dL 104 Calcium (8.5-10.1) mg/dL 10.7 H Total Bilirubin (0.2-1.0) mg/dL 0.3 AST (15-37) U/L 20 ALT (14-59) U/L 32 Alkaline Phosphatase (46-116) U/L 147 H Troponin I (<or=60) ng/L < 50 Total Protein (6.4-8.2) g/dL 8.0 Albumin (3.4-5.0) g/dL 3.5 COVID-19 Source Range/Units 04/09/22 15:30 WBC (4.4-10.8) 10^3/uL RBC (3.93-5.22) 10^6/uL Hgb (11.2-15.7) g/dL Hct (36.0-46.0) % MCV (80-95) fL MCH (27.0-33.0) pg MCHC (32.0-36.0) % RDW (11.7-14.6) % Plt Count (130-400) 10^3/uL MPV (8.0-11.0) fL Immature Gran % Neutrophils % Lymphocytes % Monocytes % Eosinophils % Basophils % Nucleated RBC % (0.0-0.3) % Absolute Neutrophils (1.2-6.7) 10^3/uL Absolute Lymphocytes (1.2-3.4) 10^3/uL Absolute Monocytes (0.1-0.8) 10^3/uL Absolute Eosinophils (0.0-0.7) 10^3/uL Absolute Basophils (0.0-0.2) 10^3/uL D-Dimer (<500) ng/mlFEU Sodium (136-145) mmol/L Potassium (3.5-5.1) mmol/L Chloride (98-107) mmol/L Carbon Dioxide (21.0-32.0) mmol/L Anion Gap (3-11) mmol/L BUN (7-18) mg/dL Creatinine (0.55-1.02) mg/dL Est GFR (CKD-EPI 2020) (mL/min/1.73m2) Glucose (74-106) mg/dL Calcium (8.5-10.1) mg/dL Total Bilirubin (0.2-1.0) mg/dL AST (15-37) U/L ALT (14-59) U/L Alkaline Phosphatase (46-116) U/L Troponin I (<or=60) ng/L Total Protein (6.4-8.2) g/dL Albumin (3.4-5.0) g/dL COVID-19 Source Nasal/Nares ECG Data Attestation: I personally reviewed and interpreted this ECG (s) as follows: Interpretation: EKG shows sinus rhythm at 93, inferior Q waves, poor R wave progression, no major change compared to prior 08/03/2019, no STEMI, nondiagnostic EKG HPI General Mode of arrival: ambulatory . Date/Time Provider Initiated Documentation: 04/09/22 14:12 . Limitations to Documentation: no limitations . Information obtained by: patient, RN notes reviewed and old records reviewed . HPI Narrative: Mandy Foreman is a 76-year-old woman with a history of Mycobacterium avium now in remission, obstructive sleep apnea, SVT in the past, hyperlipidemia, asthma, hypothyroidism presenting to the emergency department with chest pain. Patient reports that she was diagnosed with Mycobacterium 20 years ago, has been treated twice for this in the past, currently in remission. Patient reports that she sees her peer financial counselor routinely for this and had a CT 11/03. Patient reports that over the past month 3 months or so she has had chronic cough and hoarseness. Patient reports that she has been evaluated by pulmonology, ENT, and her PCP. She reports that she was diagnosed with asthma and chronic laryngitis and has been using albuterol with improvement in her symptoms. Patient reports that otherwise she recently has been well and in her usual state of health. She reports that today she had a normal day, and once taken out. She reports that when she lie down she had sudden onset chest pressure in her upper chest radiating into her jaw bilaterally. Patient reports that this lasted approximately 5 minutes. She reports that she has p.o. diltiazem that she was prescribed for SVT in the past, has not used for 5 years or so. Patient reports that although her symptoms did not feel like SVT had in the past she did take 1 dose of that in addition to 3 baby aspirin. Patient reports that she currently has no chest pressure/pain, no other symptoms, feels at her baseline. Patient reports that she walks frequently and has not had any chest pain/pressure with exertion. She states that she does not think she is ever had a stress test. She denies fever, shortness of breath, vomiting, diarrhea, numbness, weakness, rash, swelling. No recent travel, no recent surgery or immobilization. No personal or family history of blood clots, no history of heart disease in first-degree relatives. Related Data Home Medications Medication Instructions Recorded Confirmed ibuprofen 800 mg tablet 800 mg PO PRN 06/23/13 04/05/22 Ethanbutaol 1,200 mg PO DIRECTED 06/18/18 08/14/21 diazepam 5 mg tablet 5 mg PO PRN PRN 06/18/18 04/09/22 CPAP miscellaneous 08/03/19 04/05/22 omeprazole 10 mg capsule,delayed 20 mg PO DAILY PRN 08/03/19 04/09/22 release (Prilosec) sumatriptan succinate 100 mg tablet 100 mg PO ONCE PRN 08/03/19 08/14/21 atorvastatin 40 mg tablet 40 mg PO DAILY 07/10/21 04/09/22 conjugated estrogens 0.625 mg/gram 0.625 mg vaginal DAILY 03/08/22 04/05/22 vaginal cream (Premarin) levothyroxine 50 mcg tablet 50 mcg PO DAILY 03/08/22 04/09/22 albuterol sulfate 90 mcg/actuation 2 puff inhalation Q2H PRN #6.7 04/05/22 04/05/22 aerosol inhaler (Ventolin HFA) grams benzonatate 100 mg capsule 100 mg PO BID PRN 04/05/22 04/05/22 prednisone 20 mg tablet 2 tab QPM 04/09/22 04/09/22 Previous Rx's Medication Instructions Recorded albuterol sulfate 90 mcg/actuation 2 puff inhalation Q2H PRN #6.7 04/05/22 aerosol inhaler (Ventolin HFA) grams Allergies Allergy/AdvReac Type Severity Reaction Status Date / Time clarithromycin [From Biaxin] Allergy Severe Unverified 04/05/22 10:42 naproxen Allergy Unverified 04/05/22 10:42 propoxyphene Allergy Unverified 04/05/22 10:42 ciprofloxacin [From Cipro] AdvReac Intermediate Verified 04/05/22 10:42 amitriptyline AdvReac Unverified 04/05/22 10:42 cholecalciferol (vitamin D3) AdvReac Unverified 04/05/22 10:42 [cholecalciferol (vit D3)] ergocalciferol (vitamin D2) AdvReac Unverified 04/05/22 10:42 [ergocalciferol (vit D2)] oxycodone HCl AdvReac Unverified 04/05/22 10:42 [From OxyContin] General Stated Complaint: Chest Pain SELENE: 3 Review of Systems Narrative: Constitutional: denies fevers Eyes: denies eye pain ENT: denies ear pain, dental pain, sore throat Cardiovascular: denies edema, reports chest pain Respiratory: denies SOB, reports chronic cough recently improved GI: denies abdominal pain, vomiting, diarrhea : denies flank pain MSK: denies back pain, neck pain, arthralgias, myalgias Skin: denies rash Neuro: denies headaches, numbness, weakness PFSH All Active Problems Hoarseness (Acute) Chronic cough (Acute) Cough (Acute) Recurrent UTI (Acute) Mucocele, buccal (Acute) Oral mucosal lesion (Acute) Supraventricular tachycardia (Chronic) Obstructive sleep apnea (adult) (pediatric) (Acute) 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, soft tissue, and skin (Acute) Medical History Anxiety Cardiac dysrhythmia COPD (chronic obstructive pulmonary disease) Diverticulitis Hyperlipidemia, unspecified Hypothyroidism Insomnia Mycobacterium avium complex colonization Prediabetes Tobacco abuse Urinary tract infection Weight loss Surgical History H/O section History of bowel resection History of tonsillectomy and adenoidectomy Social History Smoking/Tobacco Use Status: Former Tobacco Use Quit Date: 07/15/79 Tobacco: How many years used: 25 Smoking risk assessment performed?: Yes Alcohol Intake: current Alcohol Intake frequency: a few times a month Drug use: Never Substance use type: does not use What type of physical activity do you participate in: walking and other Details: [employer], [employer], senior exercise class (2x/week) Duration: 45-60 minutes/day Frequency: 3-4 times per week Do you feel safe at home: Yes Do you feel safe in your relationship?: Yes Exam Narrative Exam Narrative: Constitutional: well and [id number], pleasant, conversing normally HENT: head atraumatic/normocephalic/normal inspection, mucous membranes moist Eyes: conjunctiva normal, sclera normal, pupils 3mm b/l Neck: no stridor, normal ROM, trachea midline Chest: normal inspection, no chest wall tenderness to palpation Resp: normal work of breathing, LCTAB Cardio: normal rate, normal rhythm, no murmur appreciated GI: abdomen soft, non-tender, non-distended Back: normal inspection, no rash Skin: warm, dry, normal color, no rash Neuro: alert, not altered, grossly non-focal, normal tone Ext: no edema, no posterior calf tenderness palpation Psych: normal mood, normal affect, normal behavior Course Vital Signs Vital signs: Vital Signs Temperature 36.7 C 04/09/22 14:20 Pulse 94 H 04/09/22 14:20 Respiratory Rate 18 04/09/22 14:20 Blood Pressure 147/84 H 04/09/22 14:20 Pulse Oximetry 96 04/09/22 14:20 Temperature 36.7 C 04/09/22 14:20 Temperature Source Tympanic 04/09/22 14:20 Pulse 94 H 04/09/22 14:20 Respiratory Rate 18 04/09/22 14:20 Respiratory Effort 04/09/22 14:24 Blood Pressure 147/84 H 04/09/22 14:20 Blood Pressure Position Sitting 04/09/22 14:20 Pulse Oximetry 96 04/09/22 14:20 Oxygen Delivery Method Room Air 04/09/22 14:20 Oxygen Flow Rate 0 04/09/22 14:20 Pain Level 0 04/09/22 14:20 Lab/Test Results Lab/Test Results: Laboratory Tests Range/Units 04/09/22 04/09/22 04/09/22 14:50 14:50 14:50 WBC (4.4-10.8) 10^3/uL 17.80 H RBC (3.93-5.22) 10^6/uL 5.32 H Hgb (11.2-15.7) g/dL 14.0 Hct (36.0-46.0) % 45.2 MCV (80-95) fL 85 MCH (27.0-33.0) pg 26.3 L MCHC (32.0-36.0) % 31.0 L RDW (11.7-14.6) % 13.7 Plt Count (130-400) 10^3/uL 463 H MPV (8.0-11.0) fL 9.8 Immature Gran % 0.7 Neutrophils % 71.0 Lymphocytes % 22.2 Monocytes % 4.9 Eosinophils % 1.0 Basophils % 0.2 Nucleated RBC % (0.0-0.3) % 0.0 Absolute Neutrophils (1.2-6.7) 10^3/uL 12.64 H Absolute Lymphocytes (1.2-3.4) 10^3/uL 3.95 H Absolute Monocytes (0.1-0.8) 10^3/uL 0.87 H Absolute Eosinophils (0.0-0.7) 10^3/uL 0.18 Absolute Basophils (0.0-0.2) 10^3/uL 0.04 D-Dimer (<500) ng/mlFEU 601 H Sodium (136-145) mmol/L 141 Potassium (3.5-5.1) mmol/L 3.5 Chloride (98-107) mmol/L 102 Carbon Dioxide (21.0-32.0) mmol/L 32.1 H Anion Gap (3-11) mmol/L 6.9 BUN (7-18) mg/dL 16 Creatinine (0.55-1.02) mg/dL 0.9 Est GFR (CKD-EPI 2020) (mL/min/1.73m2) 65.84 Glucose (74-106) mg/dL 104 Calcium (8.5-10.1) mg/dL 10.7 H Total Bilirubin (0.2-1.0) mg/dL 0.3 AST (15-37) U/L 20 ALT (14-59) U/L 32 Alkaline Phosphatase (46-116) U/L 147 H Troponin I (<or=60) ng/L < 50 Total Protein (6.4-8.2) g/dL 8.0 Albumin (3.4-5.0) g/dL 3.5
[2022-04-09 15:38] LABS: Source Nasal/Nares
[2022-04-09] MEDS: Normal Saline 1,000 ML 1000 ML IV (15:40)
--- NOTE | 2022-04-09 15:45 | DI.CT_ITS ---
Exam(s) CT CHEST PE CTA EXAM: CT CHEST PE CTA CLINICAL HISTORY: chest pain. TECHNIQUE: Imaging Protocol: Axial CT angiography was performed with multi-slice acquisition and mu lti-planar reconstructions as well as axial, coronal and sagittal MIP reconstructions. CONTRAST MATERIAL: Intravenous: Omnipaque 350 Contrast volume:61 cc COMPARISON: CT CT CHEST WO from 11/07/2021 FINDINGS: Pulmonary Arteries: No evidence of filling defect to suggest pulmonary emboli. Mediastinum and Marla: No dominant adenopathy or fluid collection. Pulmonary parenchyma: Bilateral upper lobe mild bronchiectasis and bronchial wall thickening. Stable bilateral upper lobe granulomas. Mild scarring. No consolidation or dominant measurable mass. Pleura: No effusion or pneumothorax. Heart: The heart is mildly enlarged.. No coronary artery calcifications are seen. Aorta: Thoracic aorta non-dilated. No aneurysm. No dissection. Upper abdomen: Unremarkable. Bones: Unremarkable for age. Tubes, Catheters, and Lines: IMPRESSION: No evidence of pulmonary embolism. Stable pulmonary findings. No acute infiltrate. Results of this exam have been verbally communicated with the emergency room provider. RADIATION DOSE DELIVERED: 318.74mGy.cm Total DLP DATA REPOSITORY: All CT scans at this facility are submitted to the National Radiology Data Registry (NRDR) Dose Index Registry (DIR) with the [employer] (ACR). RADIATION OPTIMIZATION: All CT scans at this facility use at least one of these dose optimization te chniques: automated exposure control; mA and/or kV adjustment per patient size (includes targeted exa ms where dose is matched to clinical indication); or iterative reconstruction.
[2022-04-09 16:09] LABS: COVID-19 PCR Negative (Negative)
[2022-04-09] MEDS: Omnipaque 350 MG/ML 500 ML BTL-Imaging package IJ (16:19)
[2022-04-09 17:36] LABS: Troponin I < 50 ng/L (<or=60)
--- NOTE | 2022-04-09 17:49 | W.EDPROG ---
Date of service: 04/09/22 Time of Service: 17:50 Medical Decision Making Case is signed out to me by my colleague Dr. Erma Nicole. Please refer to HPI, physical exam, assessment and plan. At time of signout we are pending repeat troponin and reassessment. CTA has returned and demonstrates stable findings with no acute change. Repeat troponin is normal. Patient feels well. Symptoms inconsistent with ACS, PE, or other life-threatening etiology at this time. Patient's white count is slightly elevated at 17, which she has been at before. However upon historical review with the patient she states that she was started on steroids 3 days ago by her pulmonology team. This would likely account for the mild elevation in the WBC count. Otherwise she has no fever or no signs of infection or change in respiratory status. Patient is stable and would like to go home. Patient will be discharged. I have extensively reviewed the treatment plan and discharge instructions with the patient. I have addressed all patient concerns at this time. The patient was made aware of what symptoms to monitor for that would warrant a return to the emergency department. Discussed the plan with the patient, they demonstrate verbal understanding and agreement with our assessment and plan at this time. The documentation in this chart was dictated using [employer] dictation software. Please excuse any dictation errors. FINDINGS: Pulmonary Arteries: No evidence of filling defect to suggest pulmonary emboli. Mediastinum and Marla: No dominant adenopathy or fluid collection. Pulmonary parenchyma: Bilateral upper lobe mild bronchiectasis and bronchial wall thickening.? Stable bilateral upper lobe granulomas.? Mild scarring.? No consolidation or dominant measurable mass. Pleura: No effusion or pneumothorax. Heart: The heart is mildly enlarged..? No coronary artery calcifications are seen. Aorta: Thoracic aorta non-dilated.? No aneurysm.? No dissection.? Upper abdomen:? Unremarkable. Bones: Unremarkable for age. Tubes, Catheters, and Lines: IMPRESSION: No evidence of pulmonary embolism. Stable pulmonary findings.? No acute infiltrate. Results of this exam have been verbally communicated with the emergency room provider. Sign Out Sign Out Data: Sign Out Comment: Patient signed out to Dr. Tavares at time of shift change with CTA, repeat troponin, reassessment pending Last updated by Carrie Nicole MD at 04/09/22 16:04 Discharge Plan Disposition Patient Disposition: HOME Condition: Good Discharge Details Clinical Impression: Chest pain Primary Care Provider: Tony Fuller ED Provider: Tariq Tavares Home Meds and New Rx's Prescriptions: No Action CPAP miscellaneous atorvastatin 40 mg tablet 40 mg PO DAILY Premarin 0.625 mg/gram cream 0.625 mg vaginal DAILY Rx Instructions: off 5 days; repeat cycle levothyroxine 50 mcg tablet 50 mcg PO DAILY benzonatate 100 mg capsule 100 mg PO BID PRN albuterol sulfate [Ventolin HFA] 90 mcg/actuation HFA aerosol inhaler 2 puff Inhalation Q2H PRN Qty: 6.7 1RF ibuprofen 800 MG tablet 800 mg PO PRN sumatriptan succinate 100 mg tablet 100 mg PO ONCE PRN omeprazole [Prilosec] 10 mg capsule,delayed release(DR/EC) 20 mg PO DAILY PRN prednisone 20 mg tablet 2 tab QPM Label Comments: TAKE TWO TABLETS BY MOUTH DAILY FOR 3 DAYS, THEN TAKE ONE AND ONE-HALF TABLETS DAILY FOR 3 DAYS, THEN ONE TABLET DAILY FOR 3 DAYS, THEN 1/2 diazepam 5 mg Tablet 5 mg PO PRN PRN Ethanbutaol 1,200 mg PO DIRECTED Discharge Instructions Instructions: Chest Pain (ED) Additional Instructions: At this time your chest work-up is reassuring. No signs of heart attack. If you notice any worsening of your symptoms, or any new symptoms such as vomiting, diarrhea, fever, chills, shortness of breath, chest pain, numbness, weakness, or fainting , please return immediately to the emergency department for reevaluation. Please follow up with your primary care provider as soon as possible for reassessment and reevaluation. As always, it was a pleasure participating in your medical care today. Referrals: Tony Fuller PA [Primary Care Provider] -
== END 2022-04-09 18:09 | disposition home or self-care (01) ==
PROVIDERS: Student in an Organized Health Care Education/Training Program; Emergency Provider Student in an Organized Health Care Education/Training Program; PCP Physician Assistant Medical
DX: J44.9 Chronic obstructive pulmonary disease, unspecified; R07.89 Other chest pain; Z20.822 Contact with and (suspected) exposure to COVID-19; Z87.891 Personal history of nicotine dependence; Z79.52 Long term (current) use of systemic steroids
CPT/HCPCS: 71275; 80053; 87635; 93005; 96360; 99284; 99285; 84484; 85025; 85379; 93010

== ENCOUNTER 2022-05-14 09:19 | Outpatient (CLI) | payer MEDICARE, SELFPAY ==
--- NOTE | 2022-05-14 09:00 | DI.RAD_ITS ---
Exam(s) XR KNEE RT 4V AP,LAT,ZOE,PAT EXAM: XR KNEE RT 4V AP,LAT,ZOE,PAT CLINICAL HISTORY: pain after exercise. TECHNIQUE: 2D digital imaging was performed. Three views. COMPARISON: No exams were available for comparison FINDINGS: BONES: No acute fracture is present. No bony destructive lesion is seen. JOINTS: The joint spaces are maintained. There is minimal periarticular spurring. Faint chondrocalc inosis. The knee is normally aligned. No joint effusion is seen. SOFT TISSUE: Normal. IMPRESSION: Mild degenerative changes. Mild chondrocalcinosis. DATA REPOSITORY: RADIATION DOSE DELIVERED:
== END 2022-05-14 09:20 | disposition home or self-care (01) ==
LOC: DIORS 09:19
PROVIDERS: PCP Physician Assistant Medical; Referring Provider Physician Assistant Medical; Visit Provider Physician Assistant Surgical
DX: M17.11 Unilateral primary osteoarthritis, right knee (principal)
CPT/HCPCS: 99214; 73564

== ENCOUNTER → 2022-06-18 11:06 | Outpatient (BNVA) | payer MEDICARE, SELFPAY | PROVIDERS: PCP Physician Assistant Medical; Referring Provider Physician Assistant Medical; Visit Provider Student in an Organized Health Care Education/Training Program | DX: M17.11 Unilateral primary osteoarthritis, right knee (principal) | CPT/HCPCS: 20610; J1040 ==

== ENCOUNTER 2022-07-17 10:35 | Outpatient (CLI) | payer MEDICARE, SELFPAY ==
--- NOTE | 2022-07-17 | DI.RAD_ITS ---
Exam(s) XR CHEST 2V PA LATERAL EXAM: XR CHEST 2V PA LATERAL CLINICAL HISTORY: COUGH,R05.8. TECHNIQUE: 2D digital imaging was performed. COMPARISON: CR,XR XR PORTABLE CHEST AP from 03/31/2022 FINDINGS: 2 views: Heart size is normal. The mediastinum is not widened. There is platelike atelectasis in the right lung base. Subtle patchy infiltrate evident in the mid l eft lung. No pleural effusions. IMPRESSION: Subtle bilateral findings as described above. If clinically indicated further study with CT scan can be performed for added sensitivity. DATA REPOSITORY: RADIATION DOSE DELIVERED:
== END 2022-07-17 10:55 ==
PROVIDERS: PCP Physician Assistant Medical; Visit Provider Physician Assistant Medical
DX: R05.8 Other specified cough (principal); J98.11 Atelectasis; R91.8 Other nonspecific abnormal finding of lung field
CPT/HCPCS: 71046

== ENCOUNTER 2022-07-30 13:33 | Outpatient (CLI) | payer MEDICARE, SELFPAY ==
--- NOTE | 2022-07-30 13:15 | DI.RAD_ITS ---
Exam(s) XR HAND RT COMPLETE EXAM: XR HAND RT COMPLETE CLINICAL HISTORY: right thumb pain. TECHNIQUE: 2D digital imaging was performed of the right hand. Three images were obtained. AP, late ral and oblique views were obtained. COMPARISON: No exams were available for comparison FINDINGS: BONES: No acute fracture is present. No bony destructive lesion is seen. Findings suggestive of an ol d healed 5th metacarpal fracture. JOINTS: No dislocation present. There are marked degenerative changes seen at the 1st CMC joint with joint space narrowing and bony hypertrophy. Mild degenerative changes are seen in the interphalangea l joints of the fingers. SOFT TISSUE: Normal. 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 DATA REPOSITORY: RADIATION DOSE DELIVERED:
== END 2022-07-30 13:34 | disposition home or self-care (01) ==
LOC: DIORS 13:34
PROVIDERS: PCP Physician Assistant Medical; Referring Provider Physician Assistant Medical; Visit Provider Physician Assistant
DX: M18.11 Unilateral primary osteoarthritis of first carpometacarpal joint, right hand (principal)
CPT/HCPCS: 99213; 73130

== ENCOUNTER 2023-01-18 15:08 | Outpatient (REF) | payer MEDICARE, SELFPAY ==
[2023-01-18 19:04] LABS: Hemoglobin A1C 6.1 % (<5.7)
[2023-01-18 19:11] LABS: ALT 22 U/L (14-59); AST 20 U/L (15-37); Albumin 3.8 g/dL (3.4-5.0); Alkaline Phosphatase 137 U/L (46-116); Anion Gap 7.8 mmol/L (3-11); BUN 11 mg/dL (7-18); Bilirubin, Total 0.5 mg/dL (0.2-1.0); CO2 28.2 mmol/L (21.0-32.0); CREATININE 0.7 mg/dL (0.55-1.02); Calcium 9.9 mg/dL (8.5-10.1); Calculated LDL 132 mg/dL (<100); Chloride 103 mmol/L (98-107); Cholesterol 225 mg/dL (<200); Estimated GFR 88.47 (mL/min/1.73m2); Glucose 79 mg/dL (74-106); HDL Cholesterol 65 mg/dL (40-60); Potassium 3.9 mmol/L (3.5-5.1); Sodium 139 mmol/L (136-145); Total Protein 6.9 g/dL (6.4-8.2); Triglyceride 143 mg/dL (<150)
== END 2023-01-18 15:09 | disposition home or self-care (01) ==
LOC: NCHCN 15:08
PROVIDERS: PCP Physician Assistant Medical; Visit Provider Physician Assistant Medical
DX: Z00.8 Encounter for other general examination (principal)
CPT/HCPCS: 80053; 80061; 83036; 84443

== ENCOUNTER → 2023-03-14 00:51 | Outpatient (CLI) | payer MEDICARE, SELFPAY ==
--- NOTE | 2023-03-14 | DI.MAMMO_ITS ---
Exam(s) MAMMO SCREENING EXAM: MAMMO SCREENING CLINICAL HISTORY: SCREENING BREAST CANCER Z12.31 TECHNIQUE: Bilateral full field digital CC and MLO mammographic images were obtained with 3D tomosyn thesis and utilizing computer aided detection (CAD). COMPARISON: Available for comparison. FINDINGS: Masses/Architectural Distortion: None seen. Microcalcifications: No suspicious pleomorphic-type are seen. Skin Thickening/Nipple Retraction: None. IMPRESSION: 1. No significant interval change with no specific features of malignancy noted. 2. Unless there is more urgent need, screening mammography is recommended, as per [place] [employer] guidelines. BI-RADS Category 1 - Negative Breast Density - Category C - Heterogeneously dense Breast density category C or D implies that the patient has dense breast tissue. Dense breast tissue is very common and is not abnormal but dense breast tissue can make it harder to find cancer on a ma mmogram. Also, dense breast tissue may increase their breast cancer risk. This information about the result of the mammogram report was provided to the patient to raise their awareness. Use this report when you speak with the patient about their risks for breast cancer, which includes their family hist ory. At that time, you may recommend for more screening tests (Ultrasound or MRI) as they might be us eful based on their risk. A negative radiographic report should not delay biopsy if a dominant or clinically suspicious mass is present. Up to ten percent of cancers are not identified on mammography. A negative report may reinforce clinical impression. Adenosis and dense breasts may obscure an underlying neoplasm. False positive reports average 6 to 10%. Patient will receive a letter notifying them of these results.
--- NOTE | 2023-03-14 | DI.DEXA_ITS ---
Exam(s) XR DEXA BONE DENSITY W/WO LUIGI EXAM: XR DEXA BONE DENSITY W/WO LUIGI CLINICAL HISTORY: OSTEOPENIA M85.80 POSTMENOPAUSAL Z78.0 SCREENING OSTEOPOROSIS TECHNIQUE: COMPARISON: DX DEXA BONE DENSITY WITH LUIGI from 03/01/2014 FINDINGS: Lateral Spine Image: Unremarkable. No compression deformities identified. Left hip: Total T-Score: -1.9. This compares to -1.5 on the prior examination. Total Z-Score: 0.1 T- and Z-scores: Findings are consistent with osteopenia. There is osteoporosis in the femoral neck with a T-score of -2.8. Lumbar Spine: Total T-Score: -1.1. This compares to -0.5 on the prior examination. Total Z-Score: 1.5 T- and Z-scores: Findings are consistent with osteopenia. IMPRESSION: Findings of osteoporosis in the left femoral neck.
== END ==
PROVIDERS: PCP Physician Assistant Medical; Visit Provider Physician Assistant Medical
DX: Z78.0 Asymptomatic menopausal state (principal); Z13.820 Encounter for screening for osteoporosis; Z12.31 Encounter for screening mammogram for malignant neoplasm of breast; M81.0 Age-related osteoporosis without current pathological fracture
CPT/HCPCS: 77063; 77067; 77080

== ENCOUNTER → 2023-03-14 13:48 | Outpatient (CLI) | payer MEDICARE, OTHER, SELFPAY ==
--- NOTE | 2023-03-14 | DI.RAD_ITS ---
Exam(s) XR CHEST 2V PA LATERAL EXAM: XR CHEST 2V PA LATERAL CLINICAL HISTORY: PERSISTENT COUGH-R05.3 TECHNIQUE: 2D digital imaging was performed of the chest. Two images were obtained. PA and lateral views were obtained. COMPARISON: CR XR CHEST 2V PA LATERAL from 02/08/2022 CR,XR XR PORTABLE CHEST AP from 03/31/2022 CR XR CHEST 2V PA LATERAL from 07/17/2022 FINDINGS: MEDIASTINUM: Normal. HEART: Normal. PULMONARY VASCULATURE: Normal. LUNGS: No acute infiltrates are seen. There is scarring in the lung bases which appears stable. PLEURAL SPACE: No pleural effusion or pneumothorax. BONE:Within normal limits for the patient's age. OTHER FINDINGS:Normal. IMPRESSION: No acute pulmonary findings. DATA REPOSITORY: RADIATION DOSE DELIVERED:
== END ==
PROVIDERS: PCP Physician Assistant Medical; Visit Provider Family Medicine
DX: R05.3 Chronic cough (principal)
CPT/HCPCS: 71046

== ENCOUNTER → 2023-04-08 01:19 | Outpatient (CLI) | payer MEDICARE, OTHER, SELFPAY ==
--- NOTE | 2023-04-08 10:55 | DI.RAD_ITS ---
Exam(s) XR FOOT LT COMPLETE EXAM: XR FOOT LT COMPLETE CLINICAL HISTORY: LT FOOT PAIN, M79.672. TECHNIQUE: 2D digital imaging was performed of the left foot. Three images were obtained. AP, obli que and lateral views were obtained. COMPARISON: No exams were available for comparison FINDINGS: BONES: No acute fracture is present. No bony destructive lesion is seen. JOINTS: No dislocation present. The joint spaces are well maintained. SOFT TISSUE: Normal. IMPRESSION: No acute abnormality. DATA REPOSITORY: RADIATION DOSE DELIVERED:
== END ==
PROVIDERS: PCP Physician Assistant Medical; Visit Provider Physician Assistant Medical
DX: M79.672 Pain in left foot (principal)
CPT/HCPCS: 73630

== ENCOUNTER 2023-04-14 10:00 | Outpatient (REF) | payer MEDICARE, SELFPAY | END 2023-04-14 10:01 | disposition home or self-care (01) | LOC: LBN 10:00 | PROVIDERS: PCP Physician Assistant Medical; Visit Provider Internal Medicine Pulmonary Disease | DX: R53.83 Other fatigue (principal); J47.9 Bronchiectasis, uncomplicated; A31.0 Pulmonary mycobacterial infection | CPT/HCPCS: 87116; 87206; 87070; 87205 ==

== ENCOUNTER 2023-04-15 12:01 | Emergency (ER) | payer MEDICARE, OTHER, SELFPAY ==
--- NOTE | 2023-04-15 10:00 | DI.RAD_ITS ---
Exam(s) XR WRIST RT COMPLETE EXAM: XR WRIST RT COMPLETE CLINICAL HISTORY: DAYSI, bonilla radial. TECHNIQUE: 2D digital imaging was performed. COMPARISON: No exams were available for comparison FINDINGS: 3 views Subtle oblique line in the distal radius may indicate nondisplaced fracture. Not appear to obviously violate the articular surface of the radiocarpal joint. Distal ulna is intact and there is no signi ficant ulnar variance. Some calcification is noted in the triangular fibrocartilage on the medial as pect the wrist. More distally at the radial side of the wrist there are degenerative changes at the 1st carpometacarp al joint. Scaphoid and scapholunate distance are normal. IMPRESSION: Possible very subtle nondisplaced distal radius fracture. This is only seen on one view. Degenerative changes at the 1st carpometacarpal joint. DATA REPOSITORY: RADIATION DOSE DELIVERED:
[2023-04-15 12:04] VITALS: BP 152/71; PULSE 104; RESP 18; TEMP 37; O2SAT 94
--- NOTE | 2023-04-15 12:46 | ED.GENADUL_ITS ---
Discharge Plan Disposition Patient Disposition: Home Condition: Stable Discharge Details Clinical Impression: Closed fracture of right distal radius Primary Care Provider: Tony Fuller ED Provider: Otilio Nicole Home Meds and New Rx's Prescriptions: Continued CPAP 1 device miscellaneous DAILY atorvastatin 40 mg tablet 40 mg PO DAILY venlafaxine 37.5 mg tablet 37.5 mg PO DAILY Premarin 0.625 mg/gram cream 0.625 mg vaginal DAILY Rx Instructions: off 5 days; repeat cycle levothyroxine 50 mcg tablet 50 mcg PO DAILY albuterol sulfate [Ventolin HFA] 90 mcg/actuation HFA aerosol inhaler 2 puff Inhalation Q2H PRN Qty: 6.7 1RF ibuprofen 800 MG tablet 800 mg PO PRN sumatriptan succinate 100 mg tablet 100 mg PO ONCE PRN omeprazole [Prilosec] 10 mg capsule,delayed release(DR/EC) 20 mg PO DAILY PRN diazepam 5 mg Tablet 5 mg PO PRN PRN Ethanbutaol 1,200 mg PO DIRECTED Discharge Instructions Instructions: Wrist Fracture in Adults (ED), Fall Prevention for Older Adults (ED) Additional Instructions: Please continue to use wrist splint until cleared by orthopedics. Please follow-up with orthopedics. Call to schedule appointment. Return to the ER immediately for any worsening or new concerning symptoms. Referrals: [facility] [Provider Group] Medical Decision Making 1245 -- 77-year-old female with FOOSH yesterday here with right wrist pain and tenderness. No significant deformity on exam but there is swelling present. Co ncern for fracture versus sprain. Plan to obtain x-ray. I will give ibuprofen for discomfort. 1345 --x-ray of the right wrist was reviewed and interpreted by radiology: IMPRESSION: Possible very subtle nondisplaced distal radius fracture. This is only seen on one view. Plan for volar universal wrist splint. Plan for outpatient follow-up with orthopedics. Usual customary discharge instructions reviewed. Patient was instructed to maintain splint and limit use of right hand. HPI General Mode of arrival: ambulatory . Date/Time Provider Initiated Documentation: 04/15/23 12:10 . Limitations to Documentation: no limitations . Information obtained by: patient . HPI Narrative: 77-year-old female presents after fall on outstretched hand yesterday with chief complaint of wrist pain. Patient has pain in her right wrist since the fall. Pain is worse with movement of the wrist. No associated numbness or tingling. No other injury. Related Data Home Medications Medication Instructions Recorded Confirmed ibuprofen 800 mg tablet 800 mg PO PRN 06/23/13 04/15/23 Ethanbutaol 1,200 mg PO DIRECTED 06/18/18 04/15/23 diazepam 5 mg tablet 5 mg PO PRN PRN 06/18/18 04/15/23 CPAP 1 device miscellaneous DAILY 08/03/19 04/15/23 omeprazole 10 mg capsule,delayed 20 mg PO DAILY PRN 08/03/19 04/15/23 release (Prilosec) sumatriptan succinate 100 mg tablet 100 mg PO ONCE PRN 08/03/19 04/15/23 atorvastatin 40 mg tablet 40 mg PO DAILY 07/10/21 04/15/23 conjugated estrogens 0.625 mg/gram 0.625 mg vaginal DAILY 03/08/22 04/15/23 vaginal cream (Premarin) levothyroxine 50 mcg tablet 50 mcg PO DAILY 03/08/22 04/15/23 albuterol sulfate 90 mcg/actuation 2 puff inhalation Q2H PRN #6.7 04/05/22 04/15/23 aerosol inhaler (Ventolin HFA) grams venlafaxine 37.5 mg tablet 37.5 mg PO DAILY 06/18/22 04/15/23 Previous Rx's Medication Instructions Recorded albuterol sulfate 90 mcg/actuation 2 puff inhalation Q2H PRN #6.7 04/05/22 aerosol inhaler (Ventolin HFA) grams Allergies Allergy/AdvReac Type Severity Reaction Status Date / Time clarithromycin [From Biaxin] Allergy Severe Unverified 04/15/23 12:08 naproxen Allergy Unverified 04/15/23 12:08 propoxyphene Allergy Unverified 04/15/23 12:08 ciprofloxacin [From Cipro] AdvReac Intermediate Verified 04/15/23 12:08 amitriptyline AdvReac Unverified 04/15/23 12:08 ergocalciferol (vitamin D2) AdvReac Unverified 04/15/23 12:08 [ergocalciferol (vit D2)] oxycodone HCl AdvReac Unverified 04/15/23 12:08 [From OxyContin] General Stated Complaint: Fall/Non TraumaCriteria SELENE: 3 Review of Systems Musculoskeletal Musculoskeletal: Reports as per HPI PFSH All Active Problems (Updated 04/15/23 @ 13:50 by Otilio Nicole MD) Closed fracture of right distal radius (Acute) Osteoarthritis of carpometacarpal joint of right thumb (Acute) Degenerative joint disease of right knee (Acute) DEPO 06/18/22 Hoarseness (Acute) Chronic cough (Acute) Recurrent UTI (Acute) Mucocele, buccal (Acute) Oral mucosal lesion (Acute) Supraventricular tachycardia (Chronic) Obstructive sleep apnea (adult) (pediatric) (Acute) 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, soft tissue, and skin (Acute) Medical History Anxiety Cardiac dysrhythmia COPD (chronic obstructive pulmonary disease) Diverticulitis Hyperlipidemia, unspecified Hypothyroidism Insomnia Mycobacterium avium complex colonization Prediabetes Tobacco abuse Urinary tract infection Weight loss Surgical History H/O section History of bowel resection History of tonsillectomy and adenoidectomy Social History Smoking/Tobacco Use Status: Former Tobacco Use Quit Date: 07/15/79 Tobacco: How many years used: 25 Smoking risk assessment performed?: Yes Alcohol Intake: current Alcohol Intake frequency: a few times a month Drug use: Never Substance use type: does not use What type of physical activity do you participate in: walking and other Details: [employer], [employer] ski, senior exercise class (2x/week) Duration: 45-60 minutes/day Frequency: 3-4 times per week Do you feel safe at home: Yes Do you feel safe in your relationship?: Yes Exam Extrem Right upper extremity: wrist Details: tenderness Location: of the distal radius and abnormal ROM Details: pain with active ROM during Details: with extension and with flexion and hand Details: neuromotor exam normal and neurosensory exam normal Course Vital Signs Vital signs: Vital Signs Temperature 37.0 C 04/15/23 12:04 Pulse 104 H 04/15/23 12:04 Respiratory Rate 18 04/15/23 12:04 Blood Pressure 152/71 H 04/15/23 12:04 Pulse Oximetry 94 04/15/23 12:04 Temperature 37.0 C 04/15/23 12:04 Temperature Source Skin 04/15/23 12:04 Pulse 104 H 04/15/23 12:04 Respiratory Rate 18 04/15/23 12:04 Respiratory Effort Normal 04/15/23 12:10 Blood Pressure 152/71 H 04/15/23 12:04 Blood Pressure Position Sitting 04/15/23 12:04 Pulse Oximetry 94 04/15/23 12:04 Oxygen Delivery Method Room Air 04/15/23 12:04 Oxygen Flow Rate 0 04/15/23 12:04 Pain Level 8 04/15/23 12:10
[2023-04-15] MEDS: Ibuprofen 400 MG TAB PO (13:00)
== END 2023-04-15 14:19 | disposition home or self-care (01) ==
PROVIDERS: Emergency Provider Student in an Organized Health Care Education/Training Program; PCP Physician Assistant Medical
DX: M25.531 Pain in right wrist (principal); S52.501A Unspecified fracture of the lower end of right radius, initial encounter for closed fracture; W10.9XXA Fall (on) (from) unspecified stairs and steps, initial encounter
CPT/HCPCS: 29125; 99283; 73110; 99284

== ENCOUNTER 2023-04-16 16:55 | Outpatient (REF) | payer MEDICARE, SELFPAY | END 2023-04-16 16:56 | disposition home or self-care (01) | LOC: LBN 16:55 | PROVIDERS: PCP Physician Assistant Medical; Visit Provider Internal Medicine Pulmonary Disease | DX: A31.0 Pulmonary mycobacterial infection (principal); J47.9 Bronchiectasis, uncomplicated; R53.83 Other fatigue | CPT/HCPCS: 87116; 87206 ==

== ENCOUNTER 2023-04-17 09:49 | Outpatient (REF) | payer MEDICARE, SELFPAY | END 2023-04-17 09:50 | disposition home or self-care (01) | LOC: LBN 09:49 | PROVIDERS: PCP Physician Assistant Medical; Visit Provider Internal Medicine Pulmonary Disease | DX: A31.0 Pulmonary mycobacterial infection (principal); R53.83 Other fatigue; J47.9 Bronchiectasis, uncomplicated | CPT/HCPCS: 87116; 87206 ==

== ENCOUNTER → 2023-04-24 00:49 | Outpatient (CLI) | payer MEDICARE, OTHER, SELFPAY ==
--- NOTE | 2023-04-24 | DI.CT_ITS ---
Exam(s) CT CHEST WO EXAM: CT CHEST WO CLINICAL HISTORY: MAC INFECTION A31.0 BRONCHIECTASIS J47.9 FATIGUE R53.83. TECHNIQUE: Imaging protocol: Axial computed tomography images were obtained and coronal and sagittal reformatted images were created and reviewed. CONTRAST MATERIAL: Noncontrast COMPARISON: PE CT 09 April 2022 FINDINGS: Pulmonary parenchyma: No consolidation. No acute infiltrate. Emphysema: Mild in the upper lobes. Tracheobronchial tree: No mucous plugging. Mild bilateral upper lobe bronchiectasis again noted. Mi ld lateral pulmonary nodules some of which are calcified, greater in the upper lobes and right middle lobe appear stable.. Interstitial changes: None. Pleura: No effusion or pneumothorax. Heart: The heart is not dilated. The coronary arteries show no visiblecalcifications. Aorta: Thoracic aorta non-dilated. Mildatherosclerotic changes. Lymph nodes: No enlarged lymph nodes. Bones: Degenerative changes are seen. No evidence of compression fracture. Upper abdomen: Unremarkable. Soft tissues: Unremarkable. IMPRESSION: Stable appearance of bronchiectasis greater in the upper lobes. Stable bilateral scattered nodules. No acute infiltrate. RADIATION DOSE DELIVERED: Total DLP Total DLP DATA REPOSITORY: All CT scans at this facility are submitted to the National Radiology Data Registry (NRDR) Dose Index Registry (DIR) with the [employer] (A[employer]). RADIATION OPTIMIZATION: All CT scans at this facility use at least one of these dose optimization te chniques: automated exposure control; mA and/or kV adjustment per patient size (includes targeted exa ms where dose is matched to clinical indication); or iterative reconstruction.
== END ==
PROVIDERS: PCP Physician Assistant Medical; Visit Provider Internal Medicine Pulmonary Disease
DX: A31.0 Pulmonary mycobacterial infection (principal); J47.9 Bronchiectasis, uncomplicated
CPT/HCPCS: 71250

== ENCOUNTER 2023-04-30 08:58 | Outpatient (CLI) | payer MEDICARE, OTHER, SELFPAY ==
--- NOTE | 2023-04-30 08:45 | DI.RAD_ITS ---
Exam(s) XR WRIST RT LIMITED EXAM: XR WRIST RT LIMITED CLINICAL HISTORY: radius fx f/u. TECHNIQUE: 2D digital imaging was performed. COMPARISON: CR XR WRIST RT COMPLETE from 04/15/2023 FINDINGS: Two views. No evidence of fracture nor dislocation nor significant ulnar variance. Calcification in the triangu lar fibrocartilage on the medial aspect the wrist is again noted. Degenerative changes at the 1st ca rpometacarpal joint are again noted. Scaphoid and scapholunate distance appear unremarkable. Bone d ensity normal. No osseous lesions. No erosions. IMPRESSION: No acute osseous findings. Significant degenerative changes are again noted at the 1st carpometacarp al joint, this being the articulation between the thumb metacarpal and the trapezium bone of the dist al carpal row. DATA REPOSITORY: RADIATION DOSE DELIVERED:
== END 2023-04-30 08:59 | disposition home or self-care (01) ==
LOC: DIORS 08:59
PROVIDERS: PCP Physician Assistant Medical; Referring Provider Physician Assistant Medical; Visit Provider Student in an Organized Health Care Education/Training Program
DX: M18.11 Unilateral primary osteoarthritis of first carpometacarpal joint, right hand; S52.514A Nondisplaced fracture of right radial styloid process, initial encounter for closed fracture; W19.XXXA Unspecified fall, initial encounter
CPT/HCPCS: 99213; 73100

== ENCOUNTER 2023-05-10 15:56 | Outpatient (REF) | payer MEDICARE, SELFPAY ==
[2023-05-10 16:05] LABS: ALT 28 U/L (14-59); AST 18 U/L (15-37); Albumin 3.5 g/dL (3.4-5.0); Alkaline Phosphatase 161 U/L (46-116); Anion Gap 10.1 mmol/L (3-11); BUN 13 mg/dL (7-18); Bilirubin, Total 0.4 mg/dL (0.2-1.0); CO2 28.9 mmol/L (21.0-32.0); CREATININE 0.7 mg/dL (0.55-1.02); Calcium 10.2 mg/dL (8.5-10.1); Calculated LDL 114 mg/dL (<100); Chloride 104 mmol/L (98-107); Cholesterol 199 mg/dL (<200); Estimated GFR 88.47 (mL/min/1.73m2); Glucose 119 mg/dL (74-106); HDL Cholesterol 62 mg/dL (40-60); Potassium 3.8 mmol/L (3.5-5.1); Sodium 143 mmol/L (136-145); Total Protein 7.7 g/dL (6.4-8.2); Triglyceride 117 mg/dL (<150)
== END 2023-05-10 15:57 | disposition home or self-care (01) ==
LOC: NCHCN 15:56
PROVIDERS: PCP Physician Assistant Medical; Visit Provider Physician Assistant Medical
DX: E78.5 Hyperlipidemia, unspecified (principal)
CPT/HCPCS: 80053; 80061

== ENCOUNTER 2023-05-29 10:27 | Outpatient (CLI) | payer MEDICARE, OTHER, SELFPAY ==
--- NOTE | 2023-05-29 10:00 | DI.RAD_ITS ---
Exam(s) XR WRIST RT LIMITED EXAM: XR WRIST RT LIMITED CLINICAL HISTORY: wrist f/u. TECHNIQUE: 2D digital imaging was performed. Three views. COMPARISON: CR XR HAND RT COMPLETE from 07/30/2022 CR XR WRIST RT COMPLETE from 04/15/2023 CR XR WRIST RT LIMITED from 04/30/2023 FINDINGS: BONES: No acute fracture is present. No change in appearance of radial styloid. No bony destructive lesion is seen. JOINTS: The carpal bones are normally aligned. Severe degenerative changes again noted at the 1st c arpal metacarpal joint. SOFT TISSUE: Normal. IMPRESSION: Stable appearance. DATA REPOSITORY: RADIATION DOSE DELIVERED:
== END 2023-05-29 10:28 | disposition home or self-care (01) ==
LOC: DIORS 10:27
PROVIDERS: PCP Physician Assistant Medical; Visit Provider Student in an Organized Health Care Education/Training Program
DX: M18.11 Unilateral primary osteoarthritis of first carpometacarpal joint, right hand (principal); S52.514D Nondisplaced fracture of right radial styloid process, subsequent encounter for closed fracture with routine healing; X58.XXXD Exposure to other specified factors, subsequent encounter
CPT/HCPCS: 99213; 73100

== ENCOUNTER 2023-06-07 15:15 | Emergency (ER) | payer MEDICARE, OTHER, SELFPAY ==
--- NOTE | 2023-06-07 15:30 | RT.EKG_ITS ---
APPROVED REPORT Exam: Resting ECG Reason for Exam: Chest Pressure Patient Location: E HR:163 bpm ECG Measurements Heart Rate 163 AXIS WY 85 P 206 QRSd 86 QRS 261 QT 280 T 87 QTc 462 Conclusion Supraventricular tachycardia...V-rate>(220-age), QRSd<120 Inferior infarct, old...Q >35mS, II III aVF Repolarization abnormality, prob rate related...ST dep, T neg, tachycardia baseline artifact, narrow complex regular rhythm, consistent with SVT, with expected repol abnormalit y due to rate
[2023-06-07 15:34] VITALS: BP 195/131; PULSE 168; RESP 22; TEMP 36.1; O2SAT 96
--- NOTE | 2023-06-07 15:45 | DI.RAD_ITS ---
Exam(s) XR PORTABLE CHEST AP EXAM: XR PORTABLE CHEST AP CLINICAL HISTORY: svt, chest pain TECHNIQUE: 2D digital imaging was performed of the chest. One image was obtained. An AP view was ob tained. COMPARISON: CR XR CHEST 2V PA LATERAL from 03/14/2023 FINDINGS: MEDIASTINUM: Normal. HEART: Normal. PULMONARY VASCULATURE: Normal. LUNGS: Clear. PLEURAL SPACE: No pleural effusion or pneumothorax. BONE:Within normal limits for the patient's age. OTHER FINDINGS:Normal. IMPRESSION: No acute pulmonary findings. DATA REPOSITORY: RADIATION DOSE DELIVERED:
[2023-06-07 15:46] VITALS: RESP 24
--- NOTE | 2023-06-07 16:01 | W.ED.GENAD ---
Discharge Plan Disposition Patient Disposition: Home Condition: Improving Discharge Details Chief Complaint: Chest Pain Clinical Impression: SVT (supraventricular tachycardia), Hypokalemia Primary Care Provider: Tony Fuller ED Provider: Thomas Shi Home Meds and New Rx's Prescriptions: No Action CPAP 1 device miscellaneous DAILY atorvastatin 40 mg tablet 40 mg PO DAILY venlafaxine 37.5 mg tablet 37.5 mg PO DAILY budesonide-formoterol [Symbicort] 80-4.5 mcg/actuation HFA aerosol inhaler 1 puff inhalation ONCE Premarin 0.625 mg/gram cream 0.625 mg vaginal DAILY Rx Instructions: off 5 days; repeat cycle levothyroxine 50 mcg tablet 50 mcg PO DAILY albuterol sulfate [Ventolin HFA] 90 mcg/actuation HFA aerosol inhaler 2 puff Inhalation Q2H PRN Qty: 6.7 1RF ibuprofen 800 MG tablet 800 mg PO PRN omeprazole 40 mg capsule,delayed release(DR/EC) 40 mg PO DAILY diazepam 5 mg Tablet 5 mg PO PRN PRN Discharge Instructions Instructions: Supraventricular Tachycardia (ED), Hypokalemia (ED) Additional Instructions: Please follow-up closely with your primary care physician. Return to the emergency department for any worsening symptoms. Medical Decision Making 77-year-old female history of COPD SVT, has been using inhaler for upper respiratory symptoms over the past several weeks, presents with rapid heart rate and pressure over the last couple of days, no peripheral edema, no shortness of breath, no history of thromboembolic disease or coronary artery disease, no recent travel no recent injury, SVT on EKG and monitor, normoxic speaking in full sentences no pleuritic chest pain, high clinical suspicion for SVT in the setting of beta agonist overuse must also consider electrolyte derangement versus dehydration lower suspicion for PE or ACS. During painful IV placement patient was holding her own breath and broke briefly out of SVT into sinus rhythm on the monitor, entered back into SVT before EKG could be completed. Will trial metoprolol IV 2.5 for blood pressure control and rate control. Fluid hydration will screen for electrolyte derangement. Screening chest x-ray repeat EKG. Disposition pending reassessment of symptoms 17: 44 patient resting actively no acute distress feeling much better. Has converted to sinus rhythm normal sinus rhythm 84 bpm left axis nonischemic, symptoms resolved after administration of metoprolol fluids and potassium repletion. Likely SVT in the setting of beta agonist overuse. Patient counseled to decrease her use of inhaler and to follow-up closely with her primary care physician. HPI General Date/Time Provider Initiated Documentation: 06/07/23 15:54. HPI Narrative: 77-year-old female history of recent respiratory infection and possible COPD placed on inhaler that she has been using daily presents with rapid heartbeat and chest pressure over the last couple days, denies leg swelling or pain denies recent travel hospitalization or injury. Denies history of thromboembolic disease. Related Data Home Medications Medication Instructions Recorded Confirmed ibuprofen 800 mg tablet 800 mg PO PRN 06/23/13 06/07/23 diazepam 5 mg tablet 5 mg PO PRN PRN 06/18/18 06/07/23 CPAP 1 device miscellaneous DAILY 08/03/19 06/07/23 atorvastatin 40 mg tablet 40 mg PO DAILY 07/10/21 06/07/23 conjugated estrogens 0.625 mg/gram 0.625 mg vaginal DAILY 03/08/22 06/07/23 vaginal cream (Premarin) levothyroxine 50 mcg tablet 50 mcg PO DAILY 03/08/22 06/07/23 albuterol sulfate 90 mcg/actuation 2 puff inhalation Q2H PRN #6.7 04/05/22 06/07/23 aerosol inhaler (Ventolin HFA) grams venlafaxine 37.5 mg tablet 37.5 mg PO DAILY 06/18/22 06/07/23 budesonide-formoterol HFA 80 1 puff inhalation ONCE 05/29/23 06/07/23 mcg-4.5 mcg/actuation aerosol inhaler (Symbicort) omeprazole 40 mg capsule,delayed 40 mg PO DAILY 06/04/23 06/07/23 release Previous Rx's Medication Instructions Recorded albuterol sulfate 90 mcg/actuation 2 puff inhalation Q2H PRN #6.7 04/05/22 aerosol inhaler (Ventolin HFA) grams Allergies Allergy/AdvReac Type Severity Reaction Status Date / Time clarithromycin [From Biaxin] Allergy Severe Unverified 06/07/23 15:44 naproxen Allergy Unverified 06/07/23 15:44 propoxyphene Allergy Unverified 06/07/23 15:44 ciprofloxacin [From Cipro] AdvReac Intermediate Verified 06/07/23 15:44 amitriptyline AdvReac Unverified 06/07/23 15:44 ergocalciferol (vitamin D2) AdvReac Unverified 06/07/23 15:44 [ergocalciferol (vit D2)] oxycodone HCl AdvReac Unverified 06/07/23 15:44 [From OxyContin] acetaminophen/hydrocodone Allergy Mild nausea Uncoded 06/07/23 15:44 General Stated Complaint: Chest Pain SELENE: 2 Review of Systems Narrative: Review of Systems Constitutional: negative Eyes: negative ENT: negative Cardiovascular: Rapid heart rate, chest pressure Respiratory: negative Gastrointestinal: negative : negative Musculoskeletal: negative Skin: negative Neurologic: negative Psych: negative PFSH All Active Problems (Updated 06/07/23 @ 17:46 by Thomas Shi MD) Hypokalemia (Acute) SVT (supraventricular tachycardia) (Chronic) Dyspnea (Acute) Melanocytic nevus (Acute) Medial epicondylitis (Acute) Acute bronchitis (Acute) Chronic sinusitis (Acute) Major depression (Chronic) Fatigue (Acute) Psychophysiological insomnia (Acute) Nicotine dependence (Acute) Anxiety disorder (Acute) Nondisplaced fracture of right radial styloid process, initial encounter for closed fracture (Acute 04/14/23) Closed fracture of right distal radius (Acute) Osteoarthritis of carpometacarpal joint of right thumb (Acute) Degenerative joint disease of right knee (Acute) DEPO 06/18/22 Hoarseness (Acute) Chronic cough (Acute) Recurrent UTI (Acute) Mucocele, buccal (Acute) Oral mucosal lesion (Acute) Supraventricular tachycardia (Chronic) Obstructive sleep apnea (adult) (pediatric) (Acute) 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, soft tissue, and skin (Acute) Medical History (Updated 06/07/23 @ 17:46 by Thomas Shi MD) Pneumonia 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-[employer]ellul[employer] group Insomnia Tobacco abuse Cardiac dysrhythmia Hyperlipidemia, unspecified COPD (chronic obstructive pulmonary disease) Weight loss Prediabetes Hypothyroidism Urinary tract infection Diverticulitis Anxiety Mycobacterium avium complex colonization Surgical History History of tonsillectomy and adenoidectomy History of bowel resection H/O section Social History Smoking/Tobacco Use Status: Former Tobacco Use Quit Date: 07/15/79 Tobacco: How many years used: 25 Smoking risk assessment performed?: Yes Alcohol Intake: current Alcohol Intake frequency: a few times a month Drug use: Never Substance use type: does not use Housing: house What type of physical activity do you participate in: walking and other Details: [employer], [employer] ski, senior exercise class (2x/week) Duration: 45-60 minutes/day Frequency: 3-4 times per week Do you feel safe at home: Yes Do you feel safe in your relationship?: Yes Exam Narrative Exam Narrative: Physical Examination General: alert, awake, cooperative, resting comfortably, no acute distress HEENT: normocephalic, atraumatic; PERRL, EOM intact, conjunctiva normal; no nasal discharge; moist mucous membranes, oral and pharyngeal mucosa normal, tolerating secretions Neck: supple, trachea midline; full ROM Chest: normal to inspection Respiratory: normal respiratory effort, speaking in full sentences, clear to auscultation, no wheezing, rales or rhonchi Cardiac: Tachycardia, regular rhythm, S1S2 intact, no murmurs rubs or gallops GI: abdomen soft, non-tender, non-distended; no palpable mass or hepatosplenomegaly Skin: no lesions, rashes or trauma appreciated Neuro: AAOx3, normal speech, moving all extremities Extremities: No peripheral edema Psych: Appropriate mood and affect Course Vital Signs Vital signs: Vital Signs Temperature 36.1 C L 06/07/23 15:34 Pulse 168 H 06/07/23 15:34 Respiratory Rate 22 06/07/23 15:34 Blood Pressure 195/131 H 06/07/23 15:34 Pulse Oximetry 96 06/07/23 15:34 Temperature 36.1 C L 06/07/23 15:34 Temperature Source Skin 06/07/23 15:34 Pulse 168 H 06/07/23 15:34 Respiratory Rate 24 06/07/23 15:46 Respiratory Effort Short of Breath 06/07/23 15:46 Respiratory Pattern Tachypnea 06/07/23 15:46 Blood Pressure 195/131 H 06/07/23 15:34 Blood Pressure Position Sitting 06/07/23 15:34 Pulse Oximetry 96 06/07/23 15:34 Oxygen Delivery Method Room Air 06/07/23 15:34 Oxygen Flow Rate 0 06/07/23 15:34 Pain Level 6 06/07/23 15:34
[2023-06-07 16:03] VITALS: BP 153/76; PULSE 164
[2023-06-07 16:03] LABS: Abs Immature Grans 0.04 10^3/uL (0.0-0.06); Absolute Basophil Count 0.04 10^3/uL (0.0-0.2); Absolute Eosinophil Count 0.49 10^3/uL (0.0-0.7); Absolute Lymphocyte Count 3.37 10^3/uL (1.2-3.4); Absolute Monocyte Count 1.22 10^3/uL (0.1-0.8); Absolute Neutrophil Count 7.85 10^3/uL (1.2-6.7); Basophils % 0.3; Eosinophils % 3.8; HCT 44.4 % (36.0-46.0); HGB 14.1 g/dL (11.2-15.7); Immature Grans % 0.3; Lymphocytes % 25.9; MCH 27.4 pg (27.0-33.0); MCHC 31.8 % (32.0-36.0); MCV 86 fL (80-95); MPV 9.7 fL (8.0-11.0); Monocytes % 9.4; Neutrophils % 60.3; Platelet Count 444 10^3/uL (130-400); RBC 5.15 10^6/uL (3.93-5.22); RDW 13.2 % (11.7-14.6); RDW-SD 41.4 fL; WBC 13.01 10^3/uL (4.4-10.8)
[2023-06-07] MEDS: Metoprolol 5 MG/5 ML VIAL 2.5 MG IVP (16:03)
[2023-06-07] MEDS: Normal Saline 1,000 ML 1000 ML IV (16:03)
[2023-06-07 16:18] LABS: ALT 24 U/L (14-59); AST 20 U/L (15-37); Albumin 3.2 g/dL (3.4-5.0); Alkaline Phosphatase 167 U/L (46-116); Anion Gap 5.6 mmol/L (3-11); BUN 10 mg/dL (7-18); Bilirubin, Total 0.4 mg/dL (0.2-1.0); CO2 30.4 mmol/L (21.0-32.0); Calcium 10.4 mg/dL (8.5-10.1); Chloride 101 mmol/L (98-107); Estimated GFR 57.66 (mL/min/1.73m2); Glucose 165 mg/dL (74-106); Potassium 3.2 mmol/L (3.5-5.1); Sodium 137 mmol/L (136-145); Total Protein 7.9 g/dL (6.4-8.2)
[2023-06-07 16:19] LABS: INR 1.1 (0.9-1.1); PTT Activated 31.1 sec (23.6-32.8); Prothrombin Time 10.8 sec (9.1-11.1)
--- NOTE | 2023-06-07 16:46 | DI.VRAD_ITS ---
PROCEDURE INFORMATION: Exam: XR Chest Exam date and time: 06/07/2023 4:14 PM Age: 77 years old Clinical indication: Other: Svt, chest pain TECHNIQUE: Imaging protocol: Radiologic exam of the chest. Views: 1 view. COMPARISON: CT CHEST WO 04/24/2023 3:06 PM FINDINGS: Lungs: Unremarkable. No consolidation. Pleural spaces: Unremarkable. No pleural effusion. No pneumothorax. Heart/Mediastinum: Unremarkable. No cardiomegaly. Bones/joints: Unremarkable. IMPRESSION: No acute findings. Dictated and Authenticated by: Kylee Mena MD. Ordering:ARMIDA Guzman MD
[2023-06-07] MEDS: POTASSIUM CHLORIDE 10 MEQ/100 ML BAG 100 MEQ IVPB (16:55)
--- NOTE | 2023-06-07 17:30 | RT.EKG_ITS ---
APPROVED REPORT Exam: Resting ECG Reason for Exam: repeat ekg Patient Location: E HR:84 bpm ECG Measurements Heart Rate 84 AXIS HI 172 P 66 QRSd 91 QRS -62 QT 354 T 56 QTc 420 Conclusion Sinus rhythm...normal P axis, V-rate 60- 99 Inferior infarct, old...Q >35mS, II III aVF sinus rhtyhm, left axis, normal intervals, non ischemic
[2023-06-07 18:03] VITALS: BP 129/60; PULSE 86; RESP 16; O2SAT 96
== END 2023-06-07 18:03 | disposition home or self-care (01) ==
PROVIDERS: Emergency Provider Emergency Medicine; PCP Physician Assistant Medical
DX: I47.10 Supraventricular tachycardia, unspecified (principal); E87.6 Hypokalemia; E78.5 Hyperlipidemia, unspecified; E03.9 Hypothyroidism, unspecified; J44.9 Chronic obstructive pulmonary disease, unspecified; Z87.891 Personal history of nicotine dependence
CPT/HCPCS: 36415; 80053; 93005; 96365; 96375; 99283; 71045; 85025; 85610; 85730; 93010; J3480

== ENCOUNTER → 2023-06-24 09:28 | Outpatient (BNVA) | payer MEDICARE, OTHER, SELFPAY | PROVIDERS: PCP Physician Assistant Medical; Referring Provider Physician Assistant Medical; Visit Provider Physician Assistant Surgical | DX: J45.909 Unspecified asthma, uncomplicated (principal); Z79.51 Long term (current) use of inhaled steroids; J47.9 Bronchiectasis, uncomplicated; G47.33 Obstructive sleep apnea (adult) (pediatric); A31.0 Pulmonary mycobacterial infection; R06.09 Other forms of dyspnea | CPT/HCPCS: 99215 ==

== ENCOUNTER → 2023-06-26 12:26 | Outpatient (BNVA) | payer MEDICARE, OTHER, SELFPAY | PROVIDERS: PCP Physician Assistant Medical; Referring Provider Physician Assistant Medical; Visit Provider Nurse Practitioner Gerontology | DX: R30.0 Dysuria (principal); R35.0 Frequency of micturition; Z87.440 Personal history of urinary (tract) infections | CPT/HCPCS: 81003; 99213 ==

== ENCOUNTER 2023-06-26 12:50 | Outpatient (REF) | payer MEDICARE, OTHER, SELFPAY | END 2023-06-26 12:51 | disposition home or self-care (01) | LOC: LBN 12:50 | PROVIDERS: PCP Physician Assistant Medical; Visit Provider Nurse Practitioner Gerontology | DX: R30.0 Dysuria (principal); R35.0 Frequency of micturition | CPT/HCPCS: 87077; 87086; 87186 ==

== ENCOUNTER 2023-07-01 04:05 | Outpatient (CLI) | payer MEDICARE, OTHER, SELFPAY ==
[2023-07-01] MEDS: Methacholine 100 MG VIAL IH (14:54)
[2023-07-01] MEDS: Inhaler, Assist Device 1 EACH MC (14:54)
[2023-07-01] MEDS: Levalbuterol HFA 15 GM INH 4 PUFF IH (14:54)
--- NOTE | 2023-07-05 08:27 | PFT_ITS ---
Date of service: 07/01/23 Time of Service: 12:58 Pulmonary Function Test Result Indications: Bronchiectasis Interpretation Spirometry: There is moderate airflow limitation. There was a 17% decrease in FEV1 with ad ministration of 16mg/mL methacholine Lung Volumes: Normal lung volumes Diffusion Capacity: Normal diffusion Airway Pressure: Normal airways resistance Impression Moderate airflow obstruction with a normal diffusion and negative methacholine challenge. Clinical Correlation therefore is recommended.
== END 2023-07-01 04:06 | disposition home or self-care (01) ==
LOC: RT 04:06
PROVIDERS: PCP Physician Assistant Medical; Visit Provider Physician Assistant Surgical
DX: J47.9 Bronchiectasis, uncomplicated (principal); J45.909 Unspecified asthma, uncomplicated; R94.2 Abnormal results of pulmonary function studies
CPT/HCPCS: 94010; 94060; 94070; 94726; 94729; J7674

== ENCOUNTER 2023-07-09 08:47 | Outpatient (CLI) | payer MEDICARE, OTHER, SELFPAY ==
--- NOTE | 2023-07-09 08:45 | RT.EKG_ITS ---
APPROVED REPORT Exam: Resting ECG Reason for Exam: SVT Patient Location: O HR:89 bpm ECG Measurements Heart Rate 89 AXIS HI 157 P 47 QRSd 90 QRS -69 QT 353 T 43 QTc 430 Conclusion Sinus rhythm...normal P axis, V-rate 50- 99 Probable left atrial enlargement...P >50mS, <-0.10mV V1 Abnormal R-wave progression, early transition...QRS area>0 in V2 Inferior infarct, old...Q >35mS, II III aVF I have reviewed and interpreted ECG and agree with software generated interpretation.
== END 2023-07-09 08:48 | disposition home or self-care (01) ==
LOC: DI.CARD 08:48
PROVIDERS: PCP Physician Assistant Medical; Visit Provider Internal Medicine Interventional Cardiology
DX: I47.10 Supraventricular tachycardia, unspecified (principal)
CPT/HCPCS: 93010

== ENCOUNTER → 2023-07-09 12:51 | Outpatient (BNVA) | payer MEDICARE, OTHER, SELFPAY | PROVIDERS: PCP Physician Assistant Medical; Referring Provider Physician Assistant Medical; Visit Provider Internal Medicine Interventional Cardiology | DX: I47.10 Supraventricular tachycardia, unspecified (principal); J44.9 Chronic obstructive pulmonary disease, unspecified; I10 Essential (primary) hypertension | CPT/HCPCS: 93005; 99213 ==

== ENCOUNTER → 2023-08-07 01:43 | Outpatient (CLI) | payer MEDICARE, OTHER, SELFPAY ==
--- NOTE | 2023-08-07 08:30 | DI.US_ITS ---
APPROVED REPORT EXAM: Comprehensive 2D, Doppler, and color-flow Echocardiogram Patient Location: Out-Patient [facility] Polisher: Filippo Ortega RDCS (AE) Indications: DYSPNEA ON EXERTION Conclusion 1. Normal chamber sizes. 2. Normal LV function,EF 65-70%. Normal RV function. 3. Anatomically normal valves. TRace MR, mild TR,no phtn. 4. No pericardial effusion. Wall motion Left Ventricle The left ventricle is normal size. The left ventricular systolic function is normal. The left ventric ular ejection fraction is within the normal range. There is normal left ventricular wall thickness. T here is normal LV segmental wall motion. There is no ventricular septal defect visualized. LVEF is 63 -68%. Right Ventricle The right ventricle is normal size. The right ventricular systolic function is normal. Atria The left atrium size is normal. The right atrium size is normal. The interatrial septum is intact wit h no evidence for an atrial septal defect. Aortic Valve The aortic valve is normal in structure. Aortic valve is trileaflet. There is no aortic valvular sten osis. No aortic regurgitation is present. Mitral Valve The mitral valve is normal in structure. No evidence of mitral valve stenosis. Mild mitral regurgitat ion. Tricuspid Valve The tricuspid valve is normal in structure. There is no tricuspid valve stenosis. Mild tricuspid regu rgitation. The RVSP is 28.3 mmHg. Pulmonic Valve The pulmonary valve is normal in structure. There is no pulmonic valvular stenosis. There is no pulmo yariel valvular regurgitation. Great Vessels The aortic root is normal in size. The ascending aorta is normal in size. Aortic arch is not well vis ualized. IVC is normal in size and collapses >50% with inspiration. Pericardium There is no pericardial effusion. 2D Dimensions IVSD d PLAX 0.80 cm F: 0.6-1.0 Ao Root d 2.83 cm F: 2.7 - 3.3 LVPW d PLAX 0.77 cm F: 0.6 - 1.0 Ao Asc Diam d 2.95 cm F: 2.3 - 3.1 LVID d PLAX 4.43 cm F: 3.8 - 5.2 LVDs 2.94 cm F: 2.2 - 3.5 LV EF Teichholz 62.5 % FS 33.56 % LV EDV (Teich) 89.0 mL LV ESV (Teich) 33.4 mL Stroke Vol Index (Teich) 35.44 Auto EF LV EDV A4C 75.5 mL LV EDV A2C 63.4 mL LV EDV BP 70.2 mL LV ESV A4C 27.0 mL LV ESV A2C 20.2 mL LV ESV BP 23.2 mL LVEF(%) A4C 64.2 % LVEF(%) A2C 68.2 % LVEF(%) BP 67.0 % LV SV A4C 48.5 ml LV SV A2C 43.3 ml LV SV BP 47.0 ml LV CO A4C 3.6 L/min LV CO A2C 2.9 L/min LV CO BP 3.2 L/min HR A4C 74.08 BPM HR A2C 66.30 BPM LV EDV Index (BP) LA Volume LA Length A4C 4.4 cm LA Length A2C 4.0 cm LA Area A4C s 11.04 cm2 LA Area A2C s 8.48 cm2 LA Vol A4C A-L 23.31 mL LA Vol A2C A-L 15.16 mL LA Vol Biplane A-L 19.7 mL LA Vol/BSA A4C A-L LA Vol/BSA A2C A-L LA Vol/BSA BP A-L 12.6 mL/m2 LA Vol A4C MOD 22.4 mL LA Vol A2C MOD 14.9 mL LA Vol BP MOD 19.1 mL RA Volume RA Area A4C 11.5 cm2 RA ESV A4C (A-L) 24.3mL RA Vol/BSA A4C A-L RA Length A4C 4.6 cm RA ESV A4C (MOD) 23.8mL LV Diastology MV E' medial 0.072 (>0.07 m/s) MV E Vmax 0.94 (0.4-1.3 m/s) MV E/E' MED 13.13 (<14) MV A Vmax 1.10 (0.4-1.3 m/s) MV E' lateral 0.070 (>0.1 m/s) E/A Ratio 0.9 MV E/E' LAT 13.42 (<14) MV E' Average 0.071 m/s MV E/E'(average) 13.27 Aortic Valve AoV Vmax 1.23 m/s LVOT Vmax 1.21 m/s AoV Peak Grad 6.0 mmHg LVOT Peak Grad 5.8 mmHg AoV Area (Vmax) 2.58 cm2 LVOT VTI 0.235 m AoV VTI 0.271 m LVOT Mean Grad 2.6 mmHg AoV Mean Sami. 0.86 m/s LVOT SV 61.69 mL AoV Mean Grad 3.3 mmHg LVOT Diam s 1.80 cm AoV Area (VTI) 2.28 cm2 Velocity Ratio 0.98 Mitral Valve MV DT 161 (160-240 msec) Pulmonary Valve PV Vmax 0.70 (0.5-1.5 m/s) RVOT Vmax 0.66 m/s PV Peak Grad 1.9 mmHg RVOT Peak Gr. 1.8 mmHg PV Mean Sami 0.56 m/s RVOT VTI 0.109 m PV Mean Grad 1.3 mmHg RVOT Mean Gr. 1.1 mmHg Tricuspid Valve RA Pressure 3.00 mmHg TR Vmax 2.51 m/s TR Peak Grad 25.2 mmHg RVSP (TR) 28.3 mmHg
== END ==
PROVIDERS: PCP Physician Assistant Medical; Visit Provider Physician Assistant Surgical
DX: R06.09 Other forms of dyspnea (principal)
CPT/HCPCS: 93306

== ENCOUNTER → 2023-08-09 10:50 | Outpatient (BNVA) | payer MEDICARE, OTHER, SELFPAY | PROVIDERS: PCP Physician Assistant Medical; Referring Provider Physician Assistant Medical; Visit Provider Internal Medicine Interventional Cardiology | DX: I47.10 Supraventricular tachycardia, unspecified (principal); I10 Essential (primary) hypertension; J44.9 Chronic obstructive pulmonary disease, unspecified | CPT/HCPCS: 99213 ==

== ENCOUNTER 2023-08-16 15:50 | Outpatient (REF) | payer MEDICARE, OTHER, SELFPAY ==
[2023-08-16 19:02] LABS: Hemoglobin A1C 5.9 % (<5.7)
[2023-08-16 19:10] LABS: ALT 28 U/L (14-59); AST 17 U/L (15-37); Albumin 3.7 g/dL (3.4-5.0); Alkaline Phosphatase 158 U/L (46-116); Anion Gap 5.6 mmol/L (3-11); BUN 14 mg/dL (7-18); Bilirubin, Total 0.4 mg/dL (0.2-1.0); CO2 31.4 mmol/L (21.0-32.0); CREATININE 0.8 mg/dL (0.55-1.02); Chloride 103 mmol/L (98-107); Estimated GFR 75.37 (mL/min/1.73m2); Glucose 124 mg/dL (74-106); Potassium 3.5 mmol/L (3.5-5.1); Sodium 140 mmol/L (136-145); Total Protein 8.1 g/dL (6.4-8.2)
== END 2023-08-16 15:51 | disposition home or self-care (01) ==
LOC: NCHCN 15:50
PROVIDERS: PCP Physician Assistant Medical; Visit Provider Physician Assistant Medical
DX: R73.03 Prediabetes (principal); I47.10 Supraventricular tachycardia, unspecified
CPT/HCPCS: 80053; 83036

== ENCOUNTER → 2023-08-26 13:26 | Outpatient (BNVA) | payer MEDICARE, OTHER, SELFPAY | PROVIDERS: PCP Physician Assistant Medical; Referring Provider Physician Assistant Medical; Visit Provider Urology | DX: N39.0 Urinary tract infection, site not specified (principal) | CPT/HCPCS: 81002; 99213 ==

== ENCOUNTER 2023-08-26 13:41 | Outpatient (REF) | payer MEDICARE, OTHER, SELFPAY | END 2023-08-26 13:42 | disposition home or self-care (01) | LOC: LBN 13:41 | PROVIDERS: PCP Physician Assistant Medical; Visit Provider Urology | DX: R30.0 Dysuria (principal) | CPT/HCPCS: 87077; 87086; 87186 ==

== ENCOUNTER → 2023-08-30 10:25 | Outpatient (BNVA) | payer MEDICARE, OTHER, SELFPAY | PROVIDERS: PCP Physician Assistant Medical; Referring Provider Physician Assistant Medical; Visit Provider Student in an Organized Health Care Education/Training Program | DX: J47.9 Bronchiectasis, uncomplicated (principal); J44.9 Chronic obstructive pulmonary disease, unspecified; G47.33 Obstructive sleep apnea (adult) (pediatric); A31.9 Mycobacterial infection, unspecified | CPT/HCPCS: 99214 ==

== ENCOUNTER 2023-09-20 15:21 | Outpatient (REF) | payer MEDICARE, OTHER, SELFPAY ==
[2023-09-20 19:59] LABS: Bilirubin Negative (Negative); Blood Trace-intact (Negative); Clarity Clear (Clear); Glucose Negative (Negative); Ketones Negative (Negative); Leukocyte Esterase Small (Negative); Nitrite Negative (Negative); Urobilinogen 0.2 mg/dL (Up to 0.2)
[2023-09-20 20:04] LABS: Bacteria Few HPF (Negative); Crystals Mod Calcium Oxalate HPF (Negative); Epithelial Cells Few HPF (Negative); WBC 20-50 HPF (0-5)
[2023-09-20 20:05] LABS: C & S Indicated? C&S Done As Ordered; Casts Negative LPF (Negative); Mucus Negative (Negative)
== END 2023-09-20 15:22 | disposition home or self-care (01) ==
LOC: NCHCN 15:21
PROVIDERS: PCP Physician Assistant Medical; Referring Provider Urology; Visit Provider Urology
DX: R30.0 Dysuria (principal)
CPT/HCPCS: 81003; 81015; 87086

== ENCOUNTER → 2023-09-25 07:43 | Outpatient (BNVA) | payer MEDICARE, OTHER, SELFPAY | PROVIDERS: PCP Physician Assistant Medical; Referring Provider Physician Assistant Medical; Visit Provider Nurse Practitioner Gerontology | DX: Z87.440 Personal history of urinary (tract) infections (principal) | CPT/HCPCS: 99442 ==

== ENCOUNTER 2023-09-28 11:21 | Emergency (ER) | payer MEDICARE, OTHER, SELFPAY ==
[2023-09-28] VITALS (13 sets, daily range): BP systolic 116–163; BP diastolic 49–76; PULSE 83–98; RESP 18; TEMP 36.6; O2SAT 93–97
--- NOTE | 2023-09-28 11:45 | DI.CT_ITS ---
Exam(s) CT ABDOMEN PELVIS W EXAM: CT ABDOMEN PELVIS W CLINICAL HISTORY: LLQ abd pain. TECHNIQUE: Imaging Protocol: Axial computed tomography images with coronal and sagittal reformatted images were created and reviewed CONTRAST MATERIAL: Intravenous: Omnipaque-350 100cc Oral: None COMPARISON: CT CT CHEST PE CTA from 04/09/2022 FINDINGS: VISUALIZED LUNG BASES: No nodules nor pleural effusions evident. ABDOMEN: There is no ascites. No mesenteric masses but there is some abnormal streaking in the central mesent steffi and a mild mesenteric swirl sign of the mid aspect of the superior mesenteric vessels seen centra lly. There does not appear to be thrombosis arterial nor venous of these mesenteric vessels. Few sl ightly prominent central small bowel loops noted but none greater than 2.3 cm diameter. No pneumatos is. No free air. LIVER: Small benign cyst in the left hepatic lobe is unchanged measuring 9 millimeters. No dilated i ntrahepatic ducts. GALLBLADDER/BILIARY: No obvious gallbladder pathology. CBD is not dilated. PANCREAS: No evidence of pancreatic mass nor dilatation of the pancreatic duct. SPLEEN: Spleen size normal. Small 6 millimeter cyst in the medial spleen noted. Splenic and portal veins are patent. ADRENALS: There are no significant adrenal masses. KIDNEYS:No cysts evident. 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 No other significant focal findings in the kidneys. No hydronephrosis nor hydroureter. No obvious abnormality urinary bladder.. ABDOMINAL AORTA: Abdominal aorta is not enlarged. LYMPH NODES:There is no retroperitoneal nor paraaortic adenopathy. ABDOMINAL WALL: No evidence of significant anterior abdominal wall nor inguinal hernia. GI: There is diverticular cysts on both sides of the colon. No obvious acute diverticulitis. There is an anastomosis in the rectosigmoid. No bowel obstruction at this level. There is a small focus o f fluid in the lower right pelvis proximally 1 centimeter from the anastomosis. PELVIS: GI: No evidence of appendicitis.. LYMPH NODES: There is no intrapelvic nor inguinal adenopathy. REPRODUCTIVE: Age-appropriate URINARY BLADDER: No significant focal findings. OSSEOUS: No fractures and no significant osseous lesions. IMPRESSION: 1. Mesenteric swirl sign in the central mesentery without thrombosis of the superior mesenteric vess els. There few slightly prominent central small bowel loops but no gross dilatation nor obvious jensen l obstruction, free air, nor abscess 2. Rectosigmoid anastomosis from prior diverticulosis surgery. No evidence of obvious acute diverti culitis at this time. 3. Small amount of free fluid in the dependent aspect of the pelvis. Discussed with ER provider. RADIATION DOSE DELIVERED: Total DLP DATA REPOSITORY: All CT scans at this facility are submitted to the National Radiology Data Registry (NRDR) Dose Index Registry (DIR) with the [employer] (ACR). RADIATION OPTIMIZATION: All CT scans at this facility use at least one of these dose optimization te chniques: automated exposure control; mA and/or kV adjustment per patient size (includes targeted exa ms where dose is matched to clinical indication); or iterative reconstruction.
[2023-09-28 12:05] LABS: Abs Immature Grans 0.06 10^3/uL (0.0-0.06); Absolute Basophil Count 0.03 10^3/uL (0.0-0.2); Absolute Eosinophil Count 0.24 10^3/uL (0.0-0.7); Basophils % 0.2; Eosinophils % 1.8; HCT 48.3 % (36.0-46.0); HGB 15.1 g/dL (11.2-15.7); Immature Grans % 0.5; MCH 26.6 pg (27.0-33.0); MCHC 31.3 % (32.0-36.0); MCV 85 fL (80-95); MPV 9.7 fL (8.0-11.0); Monocytes % 6.2; Neutrophils % 73.3; Platelet Count 403 10^3/uL (130-400); RBC 5.67 10^6/uL (3.93-5.22); RDW 15.9 % (11.7-14.6); RDW-SD 50.2 fL
[2023-09-28 12:09] LABS: Absolute Lymphocyte Count 2.39 10^3/uL (1.2-3.4); Absolute Monocyte Count 0.82 10^3/uL (0.1-0.8); Absolute Neutrophil Count 9.75 10^3/uL (1.2-6.7)
[2023-09-28 12:26] LABS: ALT 20 U/L (14-59); AST 13 U/L (15-37); Albumin 3.7 g/dL (3.4-5.0); Alkaline Phosphatase 193 U/L (46-116); Anion Gap 9.3 mmol/L (3-11); BUN 12 mg/dL (7-18); Bilirubin, Total 0.6 mg/dL (0.2-1.0); CO2 29.7 mmol/L (21.0-32.0); CREATININE 0.9 mg/dL (0.55-1.02); Chloride 101 mmol/L (98-107); Estimated GFR 65.03 (mL/min/1.73m2); Glucose 106 mg/dL (74-106); Lipase 21 U/L (16-77); Magnesium 2.1 mg/dL (1.8-2.4); Potassium 3.4 mmol/L (3.5-5.1); Sodium 140 mmol/L (136-145); Total Protein 8.4 g/dL (6.4-8.2)
--- NOTE | 2023-09-28 12:26 | ED.GENADUL_ITS ---
Discharge Plan Disposition Patient Disposition: Home Discharge Details Clinical Impression: Abdominal pain Primary Care Provider: Tony Fuller ED Provider: Blake Carter Home Meds and New Rx's Prescriptions: New amoxicillin-pot clavulanate 875-125 mg tablet 1 tab PO Q12H 7 Days Qty: 14 0RF Continued CPAP 1 device miscellaneous DAILY atorvastatin 40 mg tablet 40 mg PO DAILY venlafaxine 37.5 mg tablet 37.5 mg PO DAILY alendronate [Fosamax] 1 tab PO DAILY levalbuterol tartrate 45 mcg/actuation HFA aerosol inhaler 2 inh inhalation Q6H Qty: 3 12RF levothyroxine 50 mcg tablet 50 mcg PO DAILY levalbuterol tartrate 45 mcg/actuation HFA aerosol inhaler 2 inh inhalation Q6H Qty: 15 4RF diazepam 5 mg tablet 10 mg PO QHS PRN Patient Comments: 07/09/23 per PCP med list RH diltiazem HCl [Cardizem CD] 120 mg capsule,extended release 24hr 120 mg PO DAILY Qty: 30 4RF Trelegy Ellipta 100-62.5-25 mcg blister with device 1 inh inhalation DAILY 90 Days Qty: 60 12RF acetylcysteine [NAC] 600 mg capsule 1,200 mg PO BID PRN phenazopyridine [Pyridium] 200 mg tablet 200 mg PO TID PRN (Reason: pain) Qty: 12 0RF Premarin 0.625 mg/gram cream 0.625 mg vaginal DIRECTED Qty: 90 4RF Rx Instructions: apply a pea sized amount to the vaginal opening 2 times a week Discharge Instructions Instructions: Abdominal Pain (ED) Additional Instructions: If you have any new or significant worsening of symptoms feel free to return to the emergency department for reassessment Otherwise have clear liquid diet for the next 24 hours and monitor your symptoms. For any worsening that is slight feel free to start the antibiotic or if you see no change or lack of improvement in the next 24 hours also start the antibiotic. Please follow-up with your primary care provider for reassessment Referrals: Tony Fuller PA [Primary Care Provider] - 3 days Discharge Data Discharge Date/Time-TO BE ENTERED AT DEPARTURE: 09/28/23 13:49 HPI General Mode of arrival: ambulatory . Date/Time Provider Initiated Documentation: 09/28/23 11:41 . Limitations to Documentation: no limitations . Information obtained by: patient and RN notes reviewed . History of Present Illness 78 year old F presents to the emergency department with the chief complaint of Abdominal pain, described as mild and moderate, Quality is described as aching, and is localized to the abdomen. Patient reports no radiation. Patient started experiencing this day(s) (1) and it has been constant. No relieving factors improve symptom(s), No exacerbating factors reported . Patient did receive the following treatments prior to arrival, none Related Data Home Medications Medication Instructions Recorded Confirmed CPAP 1 device miscellaneous DAILY 08/03/19 09/28/23 atorvastatin 40 mg tablet 40 mg PO DAILY 07/10/21 09/28/23 levothyroxine 50 mcg tablet 50 mcg PO DAILY 03/08/22 09/28/23 venlafaxine 37.5 mg tablet 37.5 mg PO DAILY 06/18/22 09/28/23 levalbuterol tartrate 45 2 inh inhalation Q6H #15 grams 06/24/23 09/28/23 mcg/actuation aerosol inhaler fluticasone fur. 100 mcg-umeclid 1 inh inhalation DAILY 90 days #60 07/03/23 09/28/23 62.5 mcg-vilant 25 mcg ea inhalat.powder (Trelegy Ellipta) diazepam 5 mg tablet 10 mg PO QHS PRN 07/09/23 09/28/23 acetylcysteine 600 mg capsule (NAC) 1,200 mg PO BID PRN 07/12/23 09/28/23 diltiazem HCl 120 mg 120 mg PO DAILY #30 caps 08/09/23 09/28/23 capsule,extended release 24 hr (Cardizem CD) alendronate 1 tab PO DAILY 08/30/23 09/28/23 levalbuterol tartrate 45 2 inh inhalation Q6H #3 multiple 08/30/23 09/28/23 mcg/actuation aerosol inhaler units phenazopyridine 200 mg tablet 200 mg PO TID PRN pain #12 tabs 09/20/23 09/28/23 (Pyridium) conjugated estrogens 0.625 mg/gram 0.625 mg vaginal DIRECTED #90 09/27/23 09/28/23 vaginal cream (Premarin) grams amoxicillin 875 mg-potassium 1 tab PO Q12H 7 days #14 tabs 09/28/23 clavulanate 125 mg tablet Previous Rx's Medication Instructions Recorded levalbuterol tartrate 45 2 inh inhalation Q6H #15 grams 06/24/23 mcg/actuation aerosol inhaler fluticasone fur. 100 mcg-umeclid 1 inh inhalation DAILY 90 days #60 07/03/23 62.5 mcg-vilant 25 mcg ea inhalat.powder (Trelegy Ellipta) diltiazem HCl 120 mg 120 mg PO DAILY #30 caps 08/09/23 capsule,extended release 24 hr (Cardizem CD) levalbuterol tartrate 45 2 inh inhalation Q6H #3 multiple 08/30/23 mcg/actuation aerosol inhaler units phenazopyridine 200 mg tablet 200 mg PO TID PRN pain #12 tabs 09/20/23 (Pyridium) conjugated estrogens 0.625 mg/gram 0.625 mg vaginal DIRECTED #90 09/27/23 vaginal cream (Premarin) grams amoxicillin 875 mg-potassium 1 tab PO Q12H 7 days #14 tabs 09/28/23 clavulanate 125 mg tablet Allergies Allergy/AdvReac Type Severity Reaction Status Date / Time clarithromycin [From Biaxin] Allergy Severe rapid Unverified 09/28/23 11:31 heart rate naproxen Allergy swelling Unverified 09/28/23 11:31 propoxyphene Allergy Other (See Unverified 09/28/23 11:31 Comment) ciprofloxacin [From Cipro] AdvReac Intermediate rapid Verified 09/28/23 11:31 heart rate amitriptyline AdvReac weight gain Unverified 09/28/23 11:31 ergocalciferol (vitamin D2) AdvReac leg pain Unverified 09/28/23 11:31 [ergocalciferol (vit D2)] oxycodone HCl AdvReac Contraindic Unverified 09/28/23 11:31 [From OxyContin] ated acetaminophen/hydrocodone Allergy Mild nausea Uncoded 09/28/23 11:31 General Stated Complaint: Abd Prob SELENE: 3 Review of Systems Constitutional Constitutional: Denies chills, Denies fever(s) and Denies poor appetite Cardiovascular Cardiovascular: Denies chest pain and Denies dyspnea Respiratory Respiratory: Denies cough and Denies dyspnea Gastrointestinal Gastrointestinal: Reports as per HPI, Reports abdominal pain, Denies melena, Denies change in bowel habits, Reports change in stool character, Denies constipation, Denies diarrhea, Denies nausea and Denies vomiting Genitourinary Genitourinary: Denies hematuria, Denies dysuria, Denies pelvic pain, Reports flank pain and Denies urinary urgency Musculoskeletal Musculoskeletal: Denies back pain Integumentary/Breasts Skin/Breast: Denies rash Exam Const General: cooperative Orientation: alert, awake and oriented x3 Resp Effort & Inspection: normal respiratory effort and able to speak in complete sentences Auscultation: clear to auscultation bilaterally Cardio Rate: regular rate Rhythm: regular rhythm Heart Sounds: S1 normal and S2 normal GI Palpation: soft, not firm, no guarding, no masses, no pulsatile masses, not rigid and tender in the epigastrum and in the LLQ; not at McBurney's point, Graham's sign negative and Rovsing's sign negative Auscultation: normal bowel sounds General: No CVA tenderness Back/Spine/Pelvis Back: no CVA tenderness Neuro General: patient alert, patient awake, patient oriented x3, gait normal and moves all extremities Course Vital Signs Vital signs: Vital Signs Temperature 36.6 C 09/28/23 11:25 Pulse 98 H 09/28/23 11:25 Respiratory Rate 18 09/28/23 11:25 Blood Pressure 163/76 H 09/28/23 11:25 Pulse Oximetry 97 09/28/23 11:25 Temperature 36.6 C 09/28/23 11:25 Temperature Source Skin 09/28/23 11:25 Pulse 98 H 09/28/23 11:25 Respiratory Rate 18 09/28/23 11:25 Respiratory Effort Normal 09/28/23 11:27 Blood Pressure 163/76 H 09/28/23 11:25 Blood Pressure Position Sitting 09/28/23 11:25 Pulse Oximetry 97 09/28/23 11:25 Oxygen Delivery Method Room Air 09/28/23 11:25 Oxygen Flow Rate 0 09/28/23 11:25 Pain Level 5 09/28/23 11:46 Lab/Test Results Lab/Test Results: Laboratory Tests Range/Units 09/28/23 11:42 WBC (4.4-10.8) 10^3/uL 13.30 H RBC (3.93-5.22) 10^6/uL 5.67 H Hgb (11.2-15.7) g/dL 15.1 Hct (36.0-46.0) % 48.3 H MCV (80-95) fL 85 MCH (27.0-33.0) pg 26.6 L MCHC (32.0-36.0) % 31.3 L RDW (11.7-14.6) % 15.9 H Plt Count (130-400) 10^3/uL 403 H MPV (8.0-11.0) fL 9.7 Immature Gran % 0.5 Neutrophils % 73.3 Lymphocytes % 18.0 Monocytes % 6.2 Eosinophils % 1.8 Basophils % 0.2 Nucleated RBC % (0.0-0.3) % 0.0 Absolute Neutrophils (1.2-6.7) 10^3/uL 9.75 H Absolute Lymphocytes (1.2-3.4) 10^3/uL 2.39 Absolute Monocytes (0.1-0.8) 10^3/uL 0.82 H Absolute Eosinophils (0.0-0.7) 10^3/uL 0.24 Absolute Basophils (0.0-0.2) 10^3/uL 0.03 Medical Decision Making Patient presenting to the emergency department for chief complaint of abdominal pain. Patient states that this started yesterday and started more epigastric and moved to left lower quadrant. She did go to the urgent care and they sent her to the emergency department given her significant history. Patient has had severe diverticulitis in the past with colon resection due to this, patient has seen urology due to recurrent UTIs as well. Patient denies any fever, does state some loose stools today, denies any urinary burning urgency or discomfort. Of note urinalysis performed at urgent care did show trace blood with no signs of infection. Physical exam shows no CVA tenderness, significant tenderness to palpation of the left lower quadrant and mild tenderness to epigastrium, otherwise noncontributory exam. Vital signs are stable with slight note of hypertension and patient is afebrile. Will plan on performing labs and CT imaging. Did offer patient pain medication which she refused at this time. Will continue to monitor. Labs are reviewed and patient does have slight leukocytosis, and some red blood cell abnormalities but no emergent findings, CMP's shows no emergent findings but of note is alk phos of 193 which does seem to be slowly uptrending for the past couple years no other emergent LFT findings noted. Lipase within normal range. CT imaging shows some mesenteric swirl with no obvious additional emergent findings. It is considered this may be early signs of infection or inflammation. Given patient's history did discuss with her possible early infection versus inflammation. After discussion of risk versus benefit patient instructed on clear liquid diet and prescribed Augmentin but I did inform her that she could perform clear liquid diet for the next 24 hours and monitor symptoms but should start medication if slight worsening does occur or return for significant worsening of symptoms. Given early possible findings of intra- abdominal pathology patient to follow-up with primary care provider preferably early next week for reassessment if not seeing significant signs of improvement. After discussion of diagnosis and plan of care patient has no further needs, questions, or concerns and states clear understanding to return to the emergency department for any worsening symptoms. This documentation was generated using [employer] dictation system, please disregard any oddities of phrase or misspellings. Imaging Data Radiologic Study: Imaging: CT Scan Radiologist's impression: Exam(s) CT ABDOMEN PELVIS W EXAM: CT ABDOMEN PELVIS W CLINICAL HISTORY: LLQ abd pain. TECHNIQUE: Imaging Protocol: Axial computed tomography images with coronal and sagittal reformatted images were created and reviewed CONTRAST MATERIAL: Intravenous: Omnipaque-350 100cc Oral: None COMPARISON: CT CT CHEST PE CTA from 04/09/2022 FINDINGS: VISUALIZED LUNG BASES: No nodules nor pleural effusions evident. ABDOMEN: There is no ascites. No mesenteric masses but there is some abnormal streaking in the central mesentery and a mild mesenteric swirl sign of the mid aspect of the superior mesenteric vessels seen centrally. There does not appear to be thrombosis arterial nor venous of these mesenteric vessels. Few slightly prominent central small bowel loops noted but none greater than 2.3 cm diameter. No pneumatosis. No free air. LIVER: Small benign cyst in the left hepatic lobe is unchanged measuring 9 millimeters. No dilated intrahepatic ducts. GALLBLADDER/BILIARY: No obvious gallbladder pathology. CBD is not dilated. PANCREAS: No evidence of pancreatic mass nor dilatation of the pancreatic duct. SPLEEN: Spleen size normal. Small 6 millimeter cyst in the medial spleen noted. Splenic and portal veins are patent. ADRENALS: There are no significant adrenal masses. KIDNEYS:No cysts evident. 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 No other significant focal findings in the kidneys. No hydronephrosis nor hydroureter. No obvious abnormality urinary bladder.. ABDOMINAL AORTA: Abdominal aorta is not enlarged. LYMPH NODES:There is no retroperitoneal nor paraaortic adenopathy. ABDOMINAL WALL: No evidence of significant anterior abdominal wall nor inguinal hernia. GI: There is diverticular cysts on both sides of the colon. No obvious acute diverticulitis. There is an anastomosis in the rectosigmoid. No bowel obstruction at this level. There is a small focus of fluid in the lower right pelvis proximally 1 centimeter from the anastomosis. PELVIS: GI: No evidence of appendicitis.. LYMPH NODES: There is no intrapelvic nor inguinal adenopathy. REPRODUCTIVE: Age-appropriate URINARY BLADDER: No significant focal findings. OSSEOUS: No fractures and no significant osseous lesions. IMPRESSION: 1. Mesenteric swirl sign in the central mesentery without thrombosis of the superior mesenteric vessels. There few slightly prominent central small bowel loops but no gross dilatation nor obvious bowel obstruction, free air, nor abscess 2. Rectosigmoid anastomosis from prior diverticulosis surgery. No evidence of obvious acute diverticulitis at this time. 3. Small amount of free fluid in the dependent aspect of the pelvis. Lab Data Lab results reviewed: Yes I reviewed the patient's lab results. Quality:SDOH Health Related Social Needs: No Data to Display PFSH All Active Problems Abdominal pain (Acute) Mycobacteria, atypical (Acute) COPD (chronic obstructive pulmonary disease) (Chronic) Essential hypertension (Acute) Bronchiectasis (Acute) Dyspnea (Acute) Melanocytic nevus (Acute) Medial epicondylitis (Acute) Acute bronchitis (Acute) Chronic sinusitis (Acute) Major depression (Chronic) Fatigue (Acute) Psychophysiological insomnia (Acute) Nicotine dependence (Acute) Anxiety disorder (Acute) Nondisplaced fracture of right radial styloid process, initial encounter for closed fracture (Acute 04/14/23) Closed fracture of right distal radius (Acute) Osteoarthritis of carpometacarpal joint of right thumb (Acute) Degenerative joint disease of right knee (Acute) DEPO 12/05/22 Hoarseness (Acute) Chronic cough (Acute) Recurrent UTI (Acute) Mucocele, buccal (Acute) Oral mucosal lesion (Acute) Supraventricular tachycardia (Chronic) Obstructive sleep apnea (adult) (pediatric) (Acute) 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, soft tissue, and skin (Acute) Medical History Abnormal auditory perception of both ears Pneumonia 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 Brother , few 6 weeks of age No problems noted. Daughter Alive and well Son Alive and well Social History Smoking/Tobacco Use Status: Former Tobacco Use Quit Date: 07/15/79 Tobacco: How many years used: 25 Smoking risk assessment performed?: Yes Alcohol Intake: current Alcohol Intake frequency: a few times a month Drug use: Never Substance use type: does not use Housing: house What type of physical activity do you participate in: walking and other Details: [employer], alpine ski, senior exercise class (2x/week) Duration: 45-60 minutes/day Frequency: 3-4 times per week Do you feel safe at home: Yes Do you feel safe in your relationship?: Yes
[2023-09-28] MEDS: Normal Saline - Diluent 50 ML VIAL IJ (12:42)
[2023-09-28] MEDS: Omnipaque 350 MG/ML 100 ML BTL IJ (12:47)
--- NOTE | 2023-09-28 13:37 | NUR.NOTE ---
Referral faxed to PCP for recheck abd pain, this SatSep 29 or Sep 30. Nursing Note:
--- NOTE | 2023-09-29 14:10 | NUR.NOTE ---
Accessed chart to determine provider who saw pt and what was prescribed on discharge. Pt called with questions about the prescription. Nursing Note:
== END 2023-09-28 13:49 | disposition home or self-care (01) ==
PROVIDERS: Emergency Provider Nurse Practitioner Family; PCP Physician Assistant Medical
DX: R10.32 Left lower quadrant pain (principal); D72.829 Elevated white blood cell count, unspecified; J44.9 Chronic obstructive pulmonary disease, unspecified; Z87.891 Personal history of nicotine dependence
CPT/HCPCS: 80053; 83690; 99285; 74177; 83735; 85025; 99284; J3490

== ENCOUNTER 2023-11-21 21:05 | Outpatient (REF) | payer MEDICARE, OTHER, SELFPAY ==
[2023-11-21 15:21] LABS: Bilirubin Negative (Negative); Blood Negative (Negative); Clarity Clear (Clear); Glucose Negative (Negative); Ketones Negative (Negative); Leukocyte Esterase Small (Negative); Nitrite Negative (Negative); Specific Gravity 1.015 (1.005-1.025); Urobilinogen 0.2 mg/dL (Up to 0.2)
[2023-11-21 15:28] LABS: Bacteria Negative HPF (Negative); C & S Indicated? C&S Done As Ordered; Crystals Negative HPF (Negative); Epithelial Cells Rare HPF (Negative); Mucus Negative (Negative); RBC 0-2 HPF (0-2)
== END 2023-11-21 21:06 | disposition home or self-care (01) ==
LOC: LBN 21:05
PROVIDERS: PCP Physician Assistant Medical; Visit Provider Nurse Practitioner Gerontology
DX: N39.0 Urinary tract infection, site not specified (principal); R82.89 Other abnormal findings on cytological and histological examination of urine
CPT/HCPCS: 81003; 81015; 87086

== ENCOUNTER → 2024-03-24 14:07 | Outpatient (BNVA) | payer MEDICARE, OTHER, SELFPAY | PROVIDERS: PCP Physician Assistant Medical; Referring Provider Physician Assistant Medical; Visit Provider Internal Medicine | DX: J44.9 Chronic obstructive pulmonary disease, unspecified (principal); J30.9 Allergic rhinitis, unspecified; J47.9 Bronchiectasis, uncomplicated; R05.3 Chronic cough; Z87.891 Personal history of nicotine dependence | CPT/HCPCS: 99215 ==

== ENCOUNTER 2024-04-09 03:00 | Outpatient (CLI) | payer MEDICARE, OTHER, SELFPAY ==
[2024-04-09 14:00] LABS: Bilirubin Negative (Negative); Blood Moderate (Negative); Clarity Clear (Clear); Glucose Negative (Negative); Ketones Negative (Negative); Leukocyte Esterase Small (Negative); Nitrite Positive (Negative); Specific Gravity <= 1.005 (1.005-1.025); Urobilinogen 0.2 mg/dL (Up to 0.2)
[2024-04-09 14:05] LABS: Epithelial Cells Rare HPF (Negative)
[2024-04-09 14:06] LABS: WBC 20-50 HPF (0-5)
[2024-04-09 14:08] LABS: Bacteria Few HPF (Negative); RBC 0-2 HPF (0-2)
[2024-04-09 14:09] LABS: C & S Indicated? C&S Done As Ordered
[2024-04-13 08:33] LABS: Alpha 1 Antitrypsin,Serum 175 mg/dL (90-200)
[2024-04-13 22:38] LABS: Cat Epithelium IgE <0.10 kU/L (<0.70)
[2024-04-25 03:02] LABS: Result Summary NEGATIVE; Specimen WB Whole Blood
== END 2024-04-09 03:01 | disposition home or self-care (01) ==
LOC: LBO 03:00
PROVIDERS: Urology; PCP Physician Assistant Medical; Visit Provider Internal Medicine
DX: J30.9 Allergic rhinitis, unspecified (principal); J44.9 Chronic obstructive pulmonary disease, unspecified; J47.9 Bronchiectasis, uncomplicated; R05.3 Chronic cough; R30.0 Dysuria; R35.0 Frequency of micturition
CPT/HCPCS: 36415; 81220; 81222; 87077; 81003; 81015; 82103; 82784; 82787; 86003; 87086; 87186

== ENCOUNTER 2024-04-22 20:01 | Outpatient (REF) | payer MEDICARE, OTHER, SELFPAY | END 2024-04-22 20:02 | disposition home or self-care (01) | LOC: LBN 20:01 | PROVIDERS: PCP Physician Assistant Medical; Visit Provider Registered Nurse Maternal Newborn | DX: R09.81 Nasal congestion (principal); J01.01 Acute recurrent maxillary sinusitis | CPT/HCPCS: 87070 ==

== ENCOUNTER 2024-04-28 02:33 | Outpatient (CLI) | payer MEDICARE, OTHER, SELFPAY ==
[2024-04-28 12:40] LABS: Bilirubin Negative (Negative); Blood Negative (Negative); Clarity Clear (Clear); Glucose Negative (Negative); Ketones Negative (Negative); Leukocyte Esterase Trace (Negative); Nitrite Negative (Negative); Specific Gravity 1.015 (1.005-1.025); Urobilinogen 0.2 mg/dL (Up to 0.2)
[2024-04-28 12:43] LABS: ESR 28 mm/hr (0-30)
[2024-04-28 12:47] LABS: Bacteria Rare HPF (Negative); C & S Indicated? No; Casts Negative LPF (Negative); Crystals Negative HPF (Negative); Epithelial Cells Moderate HPF (Negative); Mucus Trace (Negative); RBC 0-2 HPF (0-2)
[2024-04-28 13:16] LABS: C-Reactive Protein 2.98 mg/dL (<or=0.5)
[2024-04-29 16:03] LABS: ANA Interpretation Positive (Negative); ANA Titer Pattern 1:160 Homogeneous
[2024-04-30 12:57] LABS: Myeloperoxidase Ab IgG >8.0 U (>=0.4); Proteinase 3 Ab (PR3) <0.2 U
== END 2024-04-28 02:34 | disposition home or self-care (01) ==
LOC: LBO 02:33
PROVIDERS: Urology; PCP Physician Assistant Medical; Visit Provider Registered Nurse Maternal Newborn
DX: R09.81 Nasal congestion (principal); H93.8X9 Other specified disorders of ear, unspecified ear; J01.01 Acute recurrent maxillary sinusitis; N39.0 Urinary tract infection, site not specified
CPT/HCPCS: 36415; 85652; 81003; 81015; 82310; 83516; 86038; 86140; 87086

== ENCOUNTER 2024-05-11 01:23 | Outpatient (CLI) | payer MEDICARE, OTHER, SELFPAY ==
--- NOTE | 2024-05-11 | DI.CT_ITS ---
Exam(s) CT CHEST WO EXAM: CT CHEST WO CLINICAL HISTORY: ACUTE RECURRENT SINUSITIS,J01.91,CHRONIC COUGH,R05.3,BRONCHIECTASIS WO. TECHNIQUE: Imaging protocol: Axial computed tomography images were obtained and coronal and sagittal reformatted images were created and reviewed. Computer aided detection (CAD) was utilized. CONTRAST MATERIAL: Noncontrast COMPARISON: CT CT CHEST WO from 04/24/2023 CR,XR XR PORTABLE CHEST AP from 06/07/2023 FINDINGS: Pulmonary parenchyma: Worsening of atelectasis in the right middle lobe and lingula. Multiple bilate ral ground-glass nodules. Findings appear increased from prior. Bilateral solid nodules also presen t greater in the upper lobes. Interstitial changes: None. Emphysema: Mild emphysematous changes in the upper lobes. Tracheobronchial tree: Mild bronchiectasis noted in the medial upper lobes. Mild multifocal mucous p lugging of distal branches. Pleura: No effusion or pneumothorax. Heart: The heart is not dilated. The coronary arteries show no calcifications. Aorta: Thoracic aorta non-dilated. Mild atherosclerotic changes. Lymph nodes: No enlarged lymph nodes. Bones: Degenerative changes are seen. No evidence of compression fracture. Upper abdomen: Unremarkable. Soft tissues: Unremarkable. IMPRESSION: Interval worsening of bilateral ground-glass and solid nodules. Stable mild upper lobe bronchiectasis. Mild multifocal mucous plugging. RADIATION DOSE DELIVERED: 140.13mGy.cm Total DLP 140.13mGy.cm Total DLP DATA REPOSITORY: All CT scans at this facility are submitted to the National Radiology Data Registry (NRDR) Dose Index Registry (DIR) with the [employer] ([employer]). RADIATION OPTIMIZATION: All CT scans at this facility use at least one of these dose optimization te chniques: automated exposure control; mA and/or kV adjustment per patient size (includes targeted exa ms where dose is matched to clinical indication); or iterative reconstruction.
== END 2024-05-11 01:43 ==
LOC: DI 01:24
PROVIDERS: PCP Physician Assistant Medical; Visit Provider Internal Medicine Pulmonary Disease
DX: J32.0 Chronic maxillary sinusitis (principal); J47.1 Bronchiectasis with (acute) exacerbation
CPT/HCPCS: 71250

== ENCOUNTER 2024-05-11 01:24 | Outpatient (CLI) | payer MEDICARE, OTHER, SELFPAY ==
--- NOTE | 2024-05-11 07:30 | DI.CT_ITS ---
Exam(s) CT SINUS WO EXAM: CT SINUS WO CLINICAL HISTORY: Ongoing nasal congestion and ear fullness,recurrent sinus infections,j32.9,. Eval uate for sinusitis. TECHNIQUE: Imaging Protocol: Axial computed tomography images with coronal and sagittal reformatted images were created and reviewed. COMPARISON: No exams were available for comparison FINDINGS: Frontal sinuses: Normally aerated. Ethmoid air cells: Normally aerated. Maxillary sinuses: Near complete opacification of the right maxillary sinus. Mucosal thickening of t he left maxillary sinus. No bony destruction. No significant sinus expansion. Sphenoid sinus: Normally aerated. Ostiomeatal complexes: Occluded bilaterally. Nasal cavity: Septum is slightly deviated toward the right. Anastasiya bullosa of the right middle turbi daya. No evidence of nasal polyps. Visualized regional soft tissues: No acute findings. Orbits: Unremarkable. Bones: Unremarkable. Mastoid Air Cells: Normally aerated. Visualized portions of the brain: Unremarkable as visualized. IMPRESSION: Opacification of the right maxillary sinus. Mucosal thickening of left maxillary sinus. RADIATION DOSE DELIVERED: 102.4mGy.cm Total DLP DATA REPOSITORY: All CT scans at this facility are submitted to the National Radiology Data Registry (NRDR) Dose Index Registry (DIR) with the [employer] ([employer]). RADIATION OPTIMIZATION: All CT scans at this facility use at least one of these dose optimization te chniques: automated exposure control; mA and/or kV adjustment per patient size (includes targeted exa ms where dose is matched to clinical indication); or iterative reconstruction.
== END 2024-05-11 01:44 ==
LOC: DI 01:24
PROVIDERS: PCP Physician Assistant Medical; Visit Provider Registered Nurse Maternal Newborn
DX: H93.8X1 Other specified disorders of right ear; J47.0 Bronchiectasis with acute lower respiratory infection
CPT/HCPCS: 70486

== ENCOUNTER 2024-05-11 15:06 | Outpatient (CLI) | payer MEDICARE, OTHER, SELFPAY ==
[2024-05-12 10:57] LABS: IgA 206 mg/dL (85-499); IgG 1068 mg/dL (610-1616); IgM 101 mg/dL (35-242)
== END 2024-05-11 15:07 | disposition home or self-care (01) ==
LOC: LBO 15:11
PROVIDERS: PCP Physician Assistant Medical; Visit Provider Internal Medicine Pulmonary Disease
DX: J01.91 Acute recurrent sinusitis, unspecified (principal); J47.9 Bronchiectasis, uncomplicated; R05.3 Chronic cough
CPT/HCPCS: 36415; 71250; 82784; 70486

== ENCOUNTER 2024-07-10 11:22 | Outpatient (REF) | payer MEDICARE, OTHER, SELFPAY ==
[2024-07-10 10:38] LABS: Bilirubin Negative (Negative); Blood Small (Negative); Clarity Cloudy (Clear); Glucose Negative (Negative); Ketones Negative (Negative); Leukocyte Esterase Moderate (Negative); Nitrite Positive (Negative); Specific Gravity 1.015 (1.005-1.025); Urobilinogen 0.2 mg/dL (Up to 0.2)
== END 2024-07-10 11:23 | disposition home or self-care (01) ==
LOC: LBN 11:22
PROVIDERS: PCP Physician Assistant Medical; Visit Provider Internal Medicine
DX: N39.0 Urinary tract infection, site not specified (principal); B96.29 Other Escherichia coli [E. coli] as the cause of diseases classified elsewhere; R82.89 Other abnormal findings on cytological and histological examination of urine
CPT/HCPCS: 87077; 81003; 87086; 87186

== ENCOUNTER 2024-08-07 02:15 | Outpatient (CLI) | payer MEDICARE, OTHER, SELFPAY ==
[2024-08-07 10:26] LABS: Abs Immature Grans 0.13 10^3/uL (0.0-0.06); Absolute Basophil Count 0.04 10^3/uL (0.0-0.2); Absolute Lymphocyte Count 4.24 10^3/uL (1.2-3.4); Absolute Monocyte Count 0.94 10^3/uL (0.1-0.8); Basophils % 0.2 %; Eosinophils % 0.3 %; HGB 14.8 g/dL (11.2-15.7); Immature Grans % 0.7 %; Lymphocytes % 23.4 %; MCH 26.7 pg (27.0-33.0); MCHC 31.5 % (32.0-36.0); MCV 85 fL (80-95); MPV 9.1 fL (8.0-11.0); Monocytes % 5.2 %; Neutrophils % 70.2 %; Platelet Count 363 10^3/uL (130-400); RBC 5.54 10^6/uL (3.93-5.22); RDW 16.1 % (11.7-14.6); RDW-SD 49.7 fL; WBC 18.11 10^3/uL (4.4-10.8)
[2024-08-07 10:27] LABS: Absolute Eosinophil Count 0.05 10^3/uL (0.0-0.7); Absolute Neutrophil Count 12.71 10^3/uL (1.2-6.7)
[2024-08-07 10:28] LABS: ESR 11 mm/hr (0-30)
[2024-08-07 10:57] LABS: ALT 47 U/L (14-59); AST 18 U/L (15-37); Albumin 3.5 g/dL (3.4-5.0); Alkaline Phosphatase 94 U/L (46-116); Anion Gap 4.3 mmol/L (3-11); BUN 11 mg/dL (7-18); Bilirubin, Total 0.33 mg/dL (0.2-1.0); CO2 31.7 mmol/L (21.0-32.0); CREATININE 0.9 mg/dL (0.55-1.02); Calcium 10.4 mg/dL (8.5-10.1); Chloride 99 mmol/L (98-107); Estimated GFR 65.03 (mL/min/1.73m2); Glucose 185 mg/dL (74-106); Sodium 135 mmol/L (136-145); Total Protein 6.9 g/dL (6.4-8.2)
[2024-08-07 11:01] LABS: C-Reactive Protein < 0.50 mg/dL (<or=0.5)
== END 2024-08-07 02:16 | disposition home or self-care (01) ==
LOC: LBO 02:15
PROVIDERS: PCP Physician Assistant Medical; Visit Provider Internal Medicine
DX: I77.82 Antineutrophilic cytoplasmic antibody [ANCA] vasculitis (principal)
CPT/HCPCS: 36415; 80053; 85652; 85025; 86140

== ENCOUNTER 2024-08-12 11:27 | Outpatient (REF) | payer MEDICARE, OTHER, SELFPAY ==
[2024-08-12 11:53] LABS: Bilirubin Negative (Negative); Blood Negative (Negative); Clarity Clear (Clear); Glucose Negative (Negative); Ketones Negative (Negative); Leukocyte Esterase Small (Negative); Nitrite Negative (Negative); Specific Gravity <= 1.005 (1.005-1.025); Urobilinogen 0.2 mg/dL (Up to 0.2)
== END 2024-08-12 11:28 | disposition home or self-care (01) ==
LOC: LBN 11:27
PROVIDERS: PCP Physician Assistant Medical; Visit Provider Internal Medicine
DX: R79.89 Other specified abnormal findings of blood chemistry (principal); B96.29 Other Escherichia coli [E. coli] as the cause of diseases classified elsewhere; R82.89 Other abnormal findings on cytological and histological examination of urine
CPT/HCPCS: 81003

== ENCOUNTER → 2024-08-19 13:25 | Outpatient (BNVA) | payer MEDICARE, OTHER, SELFPAY | PROVIDERS: PCP Physician Assistant Medical; Visit Provider Nurse Practitioner Gerontology | DX: Z87.440 Personal history of urinary (tract) infections (principal); R35.0 Frequency of micturition | CPT/HCPCS: 81003; 99213 ==

== ENCOUNTER 2024-08-29 16:11 | Emergency (ER) | payer MEDICARE, OTHER, SELFPAY ==
[2024-08-29] VITALS (27 sets, daily range): BP systolic 147–189; BP diastolic 66–96; PULSE 62–97; RESP 11–26; TEMP 36.2; O2SAT 93–97
--- NOTE | 2024-08-29 16:00 | RT.EKG_ITS ---
APPROVED REPORT Exam: Resting ECG Reason for Exam: high blood pressure Patient Location: E HR:90 bpm ECG Measurements Heart Rate 90 AXIS MS 160 P 56 QRSd 90 QRS -71 QT 351 T 81 QTc 429 Conclusion Sinus rhythm...normal P axis, V-rate 60- 99 Probable left atrial enlargement...P >50mS, <-0.10mV V1 Inferior infarct, old...Q >35mS, II III aVF
[2024-08-29 16:50] LABS: Abs Immature Grans 0.19 10^3/uL (0.0-0.06); Absolute Eosinophil Count 0.12 10^3/uL (0.0-0.7); Absolute Lymphocyte Count 1.58 10^3/uL (1.2-3.4); Basophils % 0.3 %; Eosinophils % 0.8 %; HCT 47.7 % (36.0-46.0); HGB 15.3 g/dL (11.2-15.7); Immature Grans % 1.3 %; Lymphocytes % 10.5 %; MCH 27.3 pg (27.0-33.0); MCHC 32.1 % (32.0-36.0); MCV 85 fL (80-95); MPV 9.3 fL (8.0-11.0); Monocytes % 2.8 %; Neutrophils % 84.3 %; Platelet Count 329 10^3/uL (130-400); RDW-SD 52.5 fL; WBC 15.09 10^3/uL (4.4-10.8)
[2024-08-29 16:51] LABS: Absolute Basophil Count 0.05 10^3/uL (0.0-0.2); Absolute Monocyte Count 0.42 10^3/uL (0.1-0.8); Absolute Neutrophil Count 12.72 10^3/uL (1.2-6.7); Lactate 2.4 mmol/L (<or=2.0)
[2024-08-29 17:15] LABS: ALT 43 U/L (14-59); AST 14 U/L (15-37); Albumin 3.5 g/dL (3.4-5.0); Alkaline Phosphatase 87 U/L (46-116); Anion Gap 5.2 mmol/L (3-11); BUN 16 mg/dL (7-18); Bilirubin, Total 0.49 mg/dL (0.2-1.0); CO2 31.8 mmol/L (21.0-32.0); Calcium 10.5 mg/dL (8.5-10.1); Chloride 101 mmol/L (98-107); Creatine Kinase 34 U/L (26-192); ESR 13 mm/hr (0-30); Estimated GFR 57.31 (mL/min/1.73m2); Glucose 212 mg/dL (74-106); NT-proBNP 89 pg/mL (<300); Potassium 3.4 mmol/L (3.5-5.1); Sodium 138 mmol/L (136-145); TSH (W/Ref FT4) 0.67 uIU/mL (0.36-3.74); Troponin I 9 ng/L (<or=51)
[2024-08-29 17:18] LABS: Bilirubin Negative (Negative); Blood Trace-intact (Negative); Clarity Sl Cloudy (Clear); Glucose Negative (Negative); Ketones Negative (Negative); Leukocyte Esterase Negative (Negative); Nitrite Negative (Negative); Urobilinogen 0.2 mg/dL (Up to 0.2)
[2024-08-29] MEDS: Lactated Ringers 1,000 ML 1000 ML IV (17:21)
[2024-08-29 17:32] LABS: Bacteria Rare HPF (Negative); C & S Indicated? No; Casts 0-2 Hyaline LPF (Negative); Crystals Many Amorphous HPF (Negative); Epithelial Cells Few HPF (Negative); Mucus Negative (Negative); Other Cells Rare Transitional (Negative); RBC 0-2 HPF (0-2); WBC 0-2 HPF (0-5)
[2024-08-29 17:35] LABS: C-Reactive Protein < 0.50 mg/dL (<or=0.5)
--- NOTE | 2024-08-29 17:37 | DI.RAD_ITS ---
Exam(s) XR CHEST 2V PA LATERAL EXAM: XR CHEST 2V PA LATERAL CLINICAL HISTORY: weakness. TECHNIQUE: 2D digital imaging was performed. COMPARISON: CR,XR XR PORTABLE CHEST AP from 06/07/2023 FINDINGS: 2 views: Heart size is normal. The mediastinum is not widened. Lungs are clear. No infiltrates nor pleural effusions. IMPRESSION: No acute pulmonary findings. DATA REPOSITORY: RADIATION DOSE DELIVERED:
--- NOTE | 2024-08-29 18:06 | DI.VRAD_ITS ---
PROCEDURE INFORMATION: Exam: XR Chest Exam date and time: 08/29/2024 5:36 PM Age: 78 years old Clinical indication: Other: Weakness TECHNIQUE: Imaging protocol: Radiologic exam of the chest. Views: 2 views. COMPARISON: CT CHEST WO 11/05/2024 13:24 FINDINGS: Tubes, catheters and devices: EKG wires overlie the chest. Lungs: No focal consolidation. 0.6 cm superior right perihilar nodule on the PA view but not seen on the lateral view may represent a blood vessel. Pleural spaces: Unremarkable. No pleural effusion. No pneumothorax. Heart/Mediastinum: Unremarkable. No cardiomegaly. Vasculature: Atherosclerotic disease. Bones/joints: Multilevel degenerative changes of the spine. IMPRESSION: 1. No acute cardiopulmonary findings. 2. Additional findings as discussed above. Dictated and Authenticated by: Asuncion Bowman MD. Orderin Yeimy Walter MD
[2024-08-29 18:10] LABS: Procalcitonin < 0.10 ng/mL
[2024-08-29 18:23] LABS: Troponin I 8 ng/L (<or=51)
[2024-08-29 18:43] LABS: Lactate 2.3 mmol/L (<or=2.0)
[2024-08-29] MEDS: Potassium Chloride 20 MEQ TABCR 40 MEQ PO (19:22)
[2024-08-29 19:30] LABS: Hemoglobin A1C 6.8 % (<5.7)
--- NOTE | 2024-08-29 20:54 | W.ED.GENAD ---
Discharge Plan Disposition Patient Disposition: Home Discharge Details Clinical Impression: Fatigue due to treatment, Light-headed feeling, Hypokalemia, Acute hyperglycemia Primary Care Provider: Tony Fuller ED Provider: Saba Gaffney Home Meds and New Rx's Prescriptions: Continued CPAP 1 device miscellaneous DAILY atorvastatin 40 mg tablet 40 mg PO DAILY venlafaxine 37.5 mg tablet 37.5 mg PO DAILY alendronate [Fosamax] 1 tab PO .ONCE A WEEK biotin 1 cap PO DAILY fluticasone propionate [Flonase Allergy Relief] 50 mcg/actuation spray,suspension 2 spray intranasal DAILY Qty: 16 12RF Rx Instructions: administer into each nostril levothyroxine 50 mcg tablet 50 mcg PO DAILY prednisone 20 mg tablet 20 mg PO DAILY Tavneos 10 mg capsule 30 mg PO BID diltiazem HCl 180 mg capsule,extended release 24hr 180 mg PO DAILY Qty: 90 3RF levalbuterol tartrate 45 mcg/actuation HFA aerosol inhaler 2 inh inhalation Q6H Qty: 3 12RF umeclidinium-vilanterol 62.5-25 mcg/actuation blister with device 1 inh inhalation DAILY Qty: 60 8RF Premarin 0.625 mg/gram cream 0.625 mg vaginal DIRECTED Qty: 90 4RF Rx Instructions: apply a pea sized amount to the vaginal opening 2 times a week phenazopyridine [Pyridium] 200 mg tablet 200 mg PO Q8H PRN (Reason: pain) Qty: 15 0RF cephalexin 250 mg capsule 250 mg PO DAILY Qty: 90 1RF Rx Instructions: Take for UTI prevention Discharge Instructions Additional Instructions: I suspect some of your symptoms are related to your recent Rituxan infusion Please continue with supportive care and keep yourself hydrated Please have your blood sugar rechecked by her primary care physician this week, I have placed an A1c in your lab counts that your doctor may follow Your potassium is slightly low at 3.4, this was supplemented with 40 mEq of potassium in the emergency department You have mild increase in your white blood cell count although this is coming down from your prior, please have this followed by your doctor Call your outer diameter technician on Saturday and tell them you are having side effects possibly from the Rituxan and see if they want to delay your next infusion Please return should you develop fever, worsening symptoms, or should any new concerns arise If your blood cultures are positive, we will notify you immediately You have a possible nodule on your chest x-ray, this may also be a vessel, please follow-up with your doctor for repeat chest x-ray within the next several months this is an incidental finding and nothing you need to worry about at this moment Referrals: Tony Fuller PA [Primary Care Provider] - 2 days HPI General Date/Time Provider Initiated Documentation: 08/29/24 16:19. HPI Narrative: The patient is a 78-year-old female with polyangiitis, vasculitis, granulomatosis, and hypertension, presenting status post her first rituximab infusion on 08/25/2024, with weakness that started today. She reports feeling lightheaded and generally unwell. She has also had some mild shortness of breath. She does not report any known sick contacts, chest discomfort, fever, chills, abdominal pain, nausea, vomiting, or urinary symptoms. Supplemental Information She has a history of bronchiectasis and is followed by pulmonology and rheumatology at [facility]. She follows with cardiology here. She recently started on Tavneos. Related Data Home Medications ?Medication ?Instructions ?Recorded ?Confirmed CPAP 1 device miscellaneous DAILY 08/03/19 08/29/24 atorvastatin 40 mg tablet 40 mg PO DAILY 07/10/21 08/29/24 levothyroxine 50 mcg tablet 50 mcg PO DAILY 03/08/22 08/29/24 venlafaxine 37.5 mg tablet 37.5 mg PO DAILY 06/18/22 08/29/24 alendronate 1 tab PO .ONCE A WEEK 08/30/23 08/29/24 conjugated estrogens 0.625 mg/gram 0.625 mg vaginal DIRECTED #90 09/27/23 08/29/24 vaginal cream (Premarin) grams biotin 1 cap PO DAILY 03/04/24 08/29/24 levalbuterol tartrate 45 2 inh inhalation Q6H #3 multiple 03/24/24 08/29/24 mcg/actuation aerosol inhaler units umeclidinium 62.5 mcg-vilanterol 1 inh inhalation DAILY #60 ea 03/24/24 08/29/24 25 mcg/actuation powdr for inhalation fluticasone propionate 50 2 spray intranasal DAILY #16 grams 03/26/24 08/29/24 mcg/actuation nasal spray,suspension (Flonase Allergy Relief) phenazopyridine 200 mg tablet 200 mg PO Q8H PRN pain #15 tabs 07/10/24 08/29/24 (Pyridium) avacopan 10 mg capsule (Tavneos) 30 mg PO BID 08/07/24 08/29/24 diltiazem HCl 180 mg 180 mg PO DAILY #90 caps 08/07/24 08/29/24 capsule,extended release 24 hr prednisone 20 mg tablet 20 mg PO DAILY 08/07/24 08/29/24 cephalexin 250 mg capsule 250 mg PO DAILY #90 caps 08/21/24 08/29/24 Previous Rx's ?Medication ?Instructions ?Recorded conjugated estrogens 0.625 mg/gram 0.625 mg vaginal DIRECTED #90 09/27/23 vaginal cream (Premarin) grams levalbuterol tartrate 45 2 inh inhalation Q6H #3 multiple 03/24/24 mcg/actuation aerosol inhaler units umeclidinium 62.5 mcg-vilanterol 1 inh inhalation DAILY #60 ea 03/24/24 25 mcg/actuation powdr for inhalation fluticasone propionate 50 2 spray intranasal DAILY #16 grams 03/26/24 mcg/actuation nasal spray,suspension (Flonase Allergy Relief) phenazopyridine 200 mg tablet 200 mg PO Q8H PRN pain #15 tabs 07/10/24 (Pyridium) diltiazem HCl 180 mg 180 mg PO DAILY #90 caps 08/07/24 capsule,extended release 24 hr cephalexin 250 mg capsule 250 mg PO DAILY #90 caps 08/21/24 Allergies Allergy/AdvReac Type Severity Reaction Status Date / Time clarithromycin (From Biaxin) Allergy Severe rapid Unverified 08/29/24 16:15 heart rate naproxen Allergy swelling Unverified 08/29/24 16:15 propoxyphene Allergy Other (See Unverified 08/29/24 16:15 Comment) ciprofloxacin (From Cipro) AdvReac Intermediate rapid Verified 08/29/24 16:15 heart rate amitriptyline AdvReac weight gain Unverified 08/29/24 16:15 ergocalciferol (vitamin D2) AdvReac leg pain Unverified 08/29/24 16:15 (ergocalciferol (vit D2)) oxycodone HCl (From AdvReac Contraindic Unverified 08/29/24 16:15 OxyContin) ated acetaminophen/hydrocodone Allergy Mild nausea Uncoded 08/29/24 16:15 General Stated Complaint: GenMedical SELENE: 3 Exam Narrative Exam Narrative: General Appearance: The patient is alert and oriented, but appears tired. Vital signs: Within normal limits. HEENT: Within normal limits. Respiratory: No respiratory distress. Lungs are clear to auscultation. Cardiovascular: Cardiac rate and rhythm are regular. Back, Musculoskeletal: No peripheral edema. Skin: Warm and dry, no rash. Neurological: Normal. Course Vital Signs Vital signs: Vital Signs Temperature 36.2 C L 08/29/24 16:12 Pulse 97 H 08/29/24 16:12 Respiratory Rate 18 08/29/24 16:12 Blood Pressure 172/95 H 08/29/24 16:12 Pulse Oximetry 93 08/29/24 16:12 Temperature 36.2 C L 08/29/24 16:16 Pulse 68 08/29/24 19:20 Pulse 68 08/29/24 19:20 Respiratory Rate 17 08/29/24 19:20 Blood Pressure 189/84 H 08/29/24 19:15 Blood Pressure Mean 121 08/29/24 19:15 Pulse Oximetry 94 08/29/24 19:20 Pain Level 0 08/29/24 19:26 Lab/Test Results Lab/Test Results: 08/29/24 17:50 Blood Blood Culture - Pending 08/29/24 17:30 Blood Blood Culture - Pending Laboratory Tests Range/Units 08/29/24 08/29/24 08/29/24 16:40 17:07 17:50 WBC (4.4-10.8) 10^3/uL 15.09 H RBC (3.93-5.22) 10^6/uL 5.60 H Hgb (11.2-15.7) g/dL 15.3 Hct (36.0-46.0) % 47.7 H MCV (80-95) fL 85 MCH (27.0-33.0) pg 27.3 MCHC (32.0-36.0) % 32.1 RDW (11.7-14.6) % 17.0 H Plt Count (130-400) 10^3/uL 329 MPV (8.0-11.0) fL 9.3 Immature Gran % % 1.3 Neutrophils % % 84.3 Lymphocytes % % 10.5 Monocytes % % 2.8 Eosinophils % % 0.8 Basophils % % 0.3 Nucleated RBC % (0.0-0.3) % 0.0 Absolute Neutrophils (1.2-6.7) 10^3/uL 12.72 H Absolute Lymphocytes (1.2-3.4) 10^3/uL 1.58 Absolute Monocytes (0.1-0.8) 10^3/uL 0.42 Absolute Eosinophils (0.0-0.7) 10^3/uL 0.12 Absolute Basophils (0.0-0.2) 10^3/uL 0.05 ESR (0-30) mm/hr 13 VBG Lactate (<or=2.0) mmol/L 2.4 H* Cancelled Sodium (136-145) mmol/L 138 Potassium (3.5-5.1) mmol/L 3.4 L Chloride (98-107) mmol/L 101 Carbon Dioxide (21.0-32.0) mmol/L 31.8 Anion Gap (3-11) mmol/L 5.2 BUN (7-18) mg/dL 16 Creatinine (0.55-1.02) mg/dL 1.0 Est GFR (CKD-EPI 2020) (mL/min/1.73m2) 57.31 Glucose (74-106) mg/dL 212 H Hemoglobin A1c (<5.7) % 6.8 H Calcium (8.5-10.1) mg/dL 10.5 H Magnesium (1.8-2.4) mg/dL 2.0 Total Bilirubin (0.2-1.0) mg/dL 0.49 AST (15-37) U/L 14 L ALT (14-59) U/L 43 Alkaline Phosphatase (46-116) U/L 87 Creatine Kinase (26-192) U/L 34 Troponin I (<or=51) ng/L 9 8 C-Reactive Protein (<or=0.5) mg/dL < 0.50 NT-Pro-B Natriuret Pep (<300) pg/mL 89 Total Protein (6.4-8.2) g/dL 7.0 Albumin (3.4-5.0) g/dL 3.5 Procalcitonin ng/mL < 0.10 TSH (0.36-3.74) uIU/mL 0.67 Urine Color (Yellow) Yellow Urine Clarity (Clear) Sl Cloudy Urine pH (5-8) 7.0 Ur Specific [place] (1.005-1.025) 1.020 Urine Protein (Neg-Trace) mg/dL Negative Urine Ketones (Negative) mg/dL Negative Urine Blood (Negative) Trace-intact H Urine Nitrite (Negative) Negative Urine Bilirubin (Negative) Negative Urine Urobilinogen (Up to 0.2) mg/dL 0.2 Ur Leukocyte Esterase (Negative) Negative Urine RBC (0-2) HPF 0-2 Urine WBC (0-5) HPF 0-2 Ur Epithelial Cells (Negative) HPF Few Urine Crystals (Negative) HPF Many Amorphous Urine Bacteria (Negative) HPF Rare Urine Casts (Negative) LPF 0-2 Hyaline Urine Mucus (Negative) Negative Urine Other (Negative) Rare Transitional Ur Culture Indicated? No Urine Glucose (Negative) mg/dL Negative Range/Units 08/29/24 08/29/24 08/29/24 18:39 18:42 19:16 WBC (4.4-10.8) 10^3/uL RBC (3.93-5.22) 10^6/uL Hgb (11.2-15.7) g/dL Hct (36.0-46.0) % MCV (80-95) fL MCH (27.0-33.0) pg MCHC (32.0-36.0) % RDW (11.7-14.6) % Plt Count (130-400) 10^3/uL MPV (8.0-11.0) fL Immature Gran % % Neutrophils % % Lymphocytes % % Monocytes % % Eosinophils % % Basophils % % Nucleated RBC % (0.0-0.3) % Absolute Neutrophils (1.2-6.7) 10^3/uL Absolute Lymphocytes (1.2-3.4) 10^3/uL Absolute Monocytes (0.1-0.8) 10^3/uL Absolute Eosinophils (0.0-0.7) 10^3/uL Absolute Basophils (0.0-0.2) 10^3/uL ESR (0-30) mm/hr VBG Lactate (<or=2.0) mmol/L 2.3 H* Cancelled Sodium (136-145) mmol/L Potassium (3.5-5.1) mmol/L Chloride (98-107) mmol/L Carbon Dioxide (21.0-32.0) mmol/L Anion Gap (3-11) mmol/L BUN (7-18) mg/dL Creatinine (0.55-1.02) mg/dL Est GFR (CKD-EPI 2020) (mL/min/1.73m2) Glucose (74-106) mg/dL Hemoglobin A1c (<5.7) % Cancelled Calcium (8.5-10.1) mg/dL Magnesium (1.8-2.4) mg/dL Total Bilirubin (0.2-1.0) mg/dL AST (15-37) U/L ALT (14-59) U/L Alkaline Phosphatase (46-116) U/L Creatine Kinase (26-192) U/L Troponin I (<or=51) ng/L C-Reactive Protein (<or=0.5) mg/dL NT-Pro-B Natriuret Pep (<300) pg/mL Total Protein (6.4-8.2) g/dL Albumin (3.4-5.0) g/dL Procalcitonin ng/mL TSH (0.36-3.74) uIU/mL Urine Color (Yellow) Urine Clarity (Clear) Urine pH (5-8) Ur Specific [place] (1.005-1.025) Urine Protein (Neg-Trace) mg/dL Urine Ketones (Negative) mg/dL Urine Blood (Negative) Urine Nitrite (Negative) Urine Bilirubin (Negative) Urine Urobilinogen (Up to 0.2) mg/dL Ur Leukocyte Esterase (Negative) Urine RBC (0-2) HPF Urine WBC (0-5) HPF Ur Epithelial Cells (Negative) HPF Urine Crystals (Negative) HPF Urine Bacteria (Negative) HPF Urine Casts (Negative) LPF Urine Mucus (Negative) Urine Other (Negative) Ur Culture Indicated? Urine Glucose (Negative) mg/dL Range/Units 08/29/24 19:35 WBC (4.4-10.8) 10^3/uL RBC (3.93-5.22) 10^6/uL Hgb (11.2-15.7) g/dL Hct (36.0-46.0) % MCV (80-95) fL MCH (27.0-33.0) pg MCHC (32.0-36.0) % RDW (11.7-14.6) % Plt Count (130-400) 10^3/uL MPV (8.0-11.0) fL Immature Gran % % Neutrophils % % Lymphocytes % % Monocytes % % Eosinophils % % Basophils % % Nucleated RBC % (0.0-0.3) % Absolute Neutrophils (1.2-6.7) 10^3/uL Absolute Lymphocytes (1.2-3.4) 10^3/uL Absolute Monocytes (0.1-0.8) 10^3/uL Absolute Eosinophils (0.0-0.7) 10^3/uL Absolute Basophils (0.0-0.2) 10^3/uL ESR (0-30) mm/hr VBG Lactate (<or=2.0) mmol/L Sodium (136-145) mmol/L Potassium (3.5-5.1) mmol/L Chloride (98-107) mmol/L Carbon Dioxide (21.0-32.0) mmol/L Anion Gap (3-11) mmol/L BUN (7-18) mg/dL Creatinine (0.55-1.02) mg/dL Est GFR (CKD-EPI 2020) (mL/min/1.73m2) Glucose (74-106) mg/dL Hemoglobin A1c (<5.7) % Calcium (8.5-10.1) mg/dL Magnesium (1.8-2.4) mg/dL Total Bilirubin (0.2-1.0) mg/dL AST (15-37) U/L ALT (14-59) U/L Alkaline Phosphatase (46-116) U/L Creatine Kinase (26-192) U/L Troponin I (<or=51) ng/L Cancelled C-Reactive Protein (<or=0.5) mg/dL NT-Pro-B Natriuret Pep (<300) pg/mL Total Protein (6.4-8.2) g/dL Albumin (3.4-5.0) g/dL Procalcitonin ng/mL TSH (0.36-3.74) uIU/mL Urine Color (Yellow) Urine Clarity (Clear) Urine pH (5-8) Ur Specific [place] (1.005-1.025) Urine Protein (Neg-Trace) mg/dL Urine Ketones (Negative) mg/dL Urine Blood (Negative) Urine Nitrite (Negative) Urine Bilirubin (Negative) Urine Urobilinogen (Up to 0.2) mg/dL Ur Leukocyte Esterase (Negative) Urine RBC (0-2) HPF Urine WBC (0-5) HPF Ur Epithelial Cells (Negative) HPF Urine Crystals (Negative) HPF Urine Bacteria (Negative) HPF Urine Casts (Negative) LPF Urine Mucus (Negative) Urine Other (Negative) Ur Culture Indicated? Urine Glucose (Negative) mg/dL Medical Decision Making Laboratory Studies CBC within normal limits, white blood cell count decreased from 18,000 to 15,000. Lactate slightly elevated at 2.3, repeat remains at 2.3. Procalcitonin less than 10. Mild hypokalemia at 3.4. Blood glucose elevated at 212, A1c of 6.8. Imaging Chest x-ray does not show evidence of acute abnormality. Testing Influenza, COVID-19, and RSV tests are negative. Initial Assessment: 78-year-old female with a history of polyangiitis/vasculitis/granulomatosis hypertension, status post rituximab infusion, presenting with weakness, mild shortness of breath, and general malaise. Differential Diagnosis: - Infectious etiology: Low clinical suspicion given symptoms and lab results. Orthostatics negative. Flu, Covid, and RSV negative. - Side effects from Rituxan: Suspected due to timing of symptoms post-infusion. ED Course: - Chest x-ray: No acute abnormality per radiology interpretation. - CBC: Within normal limits, WBC decreased from 18,000 to 15,000. - Lactate: Slightly elevated at 2.3, repeat remains at 2.3. - Procalcitonin: Less than 10. - Potassium: Mild hypokalemia at 3.4, supplemented with 40 mEq of potassium. - Blood glucose: Elevated at 212, A1c of 6.8. - Blood cultures: Pending. - Patient ambulatory with a steady gait. Final Assessment: Patient presents with weakness and mild shortness of breath post-rituximab infusion. Low suspicion for infection. Mild hypokalemia treated with potassium supplementation. Elevated blood glucose noted, potential diabetes development to be discussed with primary care. Patient stable for discharge. Clinical Impression: - Post-rituximab infusion status - Mild hypokalemia - Elevated blood glucose Disposition: - Discharge: Patient stable for discharge home. - Follow-Up: Advised to follow up with primary care physician on Saturday for discussion on diabetes management. Return immediately if new or worsening symptoms occur. MDM Components Evaluation: - Number of Differential Diagnoses or Management Options: Infectious etiology, side effects from Rituxan. - Amount and Complexity of Data Reviewed: Chest x-ray, CBC, lactate, procalcitonin, potassium, blood glucose, blood cultures. - Risk of Complication and Morbidity or Mortality: Potential side effects from Rituxan, mild hypokalemia, elevated blood glucose indicating possible diabetes development. Quality:SDOH Health Related Social Needs: No Data to Display PFSH All Active Problems (Updated 08/29/24 @ 19:24 by ALEXANDRE Lara) Acute hyperglycemia (Acute) Hypokalemia (Acute) Light-headed feeling (Acute) Fatigue due to treatment (Acute) Positive GINA (antinuclear antibody) (Acute) Nasal congestion (Acute) Ear fullness (Acute) Recurrent sinus infections (Acute) Nasal vestibulitis (Acute) Sinusitis, acute (Acute) Conductive hearing loss in right ear (Acute) Acute serous otitis media, right ear (Acute) Mycobacteria, atypical (Acute) COPD (chronic obstructive pulmonary disease) (Chronic) Essential hypertension (Acute) Bronchiectasis (Acute) Dyspnea (Acute) Melanocytic nevus (Acute) Medial epicondylitis (Acute) Acute bronchitis (Acute) Chronic sinusitis (Acute) Major depression (Chronic) Fatigue (Acute) Psychophysiological insomnia (Acute) Nicotine dependence (Acute) Anxiety disorder (Acute) Nondisplaced fracture of right radial styloid process, initial encounter for closed fracture (Acute 04/14/23) Closed fracture of right distal radius (Acute) Osteoarthritis of carpometacarpal joint of right thumb (Acute) Degenerative joint disease of right knee (Acute) DEPO 06/18/22 Hoarseness (Acute) Chronic cough (Acute) Recurrent UTI (Acute) Mucocele, buccal (Acute) Oral mucosal lesion (Acute) Supraventricular tachycardia (Chronic) Obstructive sleep apnea (adult) (pediatric) (Acute) 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, soft tissue, and skin (Acute) Medical History Abnormal auditory perception of both ears Pneumonia 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 Brother , few 6 weeks of age No problems noted. Daughter Alive and well Son Alive and well Social History Smoking/Tobacco Use Status: Former Tobacco Use Quit Date: 07/15/79 Tobacco: How many years used: 25 Smoking risk assessment performed?: Yes Alcohol Intake: current Alcohol Intake frequency: a few times a month Drug use: Never Substance use type: does not use Housing: house What type of physical activity do you participate in: walking and other Details: snowshoe, alpine ski, senior exercise class (2x/week) Duration: 45-60 minutes/day Frequency: 3-4 times per week Do you feel safe at home: Yes Do you feel safe in your relationship?: Yes PAWSS Have you Been Recently Intoxicated or Drunk Within the Last 30 days?: No Have you Ever Experienced Previous Episodes of Alcohol Withdrawal?: No Have you ever Experienced Withdrawal Seizures?: No Have you ever Experienced Delirium Tremens(DT)s?: No Have you ever undergone Alcohol Rehabilitation Treatment (i.e, inpt ot outpatient treatment programs)?: No Have you ever Experienced Blackouts?: No Have you ever Combined Alcohol with other Downers within the last 90 days?: No Have you ever Combined Alcohol with any other Substance of Abuse during the last 90 days?: No Positive Blood Alcohol level on Presentation? [PCS.BAL]: No Evidence of Increased Autonomic Activity (i.e. HR>120, tremor, sweating, agitation, nausea)?: No Result: 0
== END 2024-08-29 19:41 | disposition home or self-care (01) ==
PROVIDERS: Emergency Provider Physician Assistant; PCP Physician Assistant Medical
DX: E11.65 Type 2 diabetes mellitus with hyperglycemia (principal); E87.6 Hypokalemia; R42 Dizziness and giddiness; E78.5 Hyperlipidemia, unspecified; E03.9 Hypothyroidism, unspecified; I10 Essential (primary) hypertension; M30.0 Polyarteritis nodosa; I77.6 Arteritis, unspecified; L92.9 Granulomatous disorder of the skin and subcutaneous tissue, unspecified; Z79.620 Long term (current) use of immunosuppressive biologic
CPT/HCPCS: 80053; 82550; 84145; 85652; 87040; 87426; 93005; 96360; 99285; 71046; 81003; 81015; 83036; 83605; 83735; 83880; 84443; 84484; 85025; 86140; 93010

== ENCOUNTER 2024-09-07 03:10 | Outpatient (CLI) | payer MEDICARE, OTHER, SELFPAY ==
[2024-09-07 12:34] LABS: Abs Immature Grans 0.13 10^3/uL (0.0-0.06); Basophils % 0.4 %; Eosinophils % 2.9 %; HCT 44.6 % (36.0-46.0); HGB 14.2 g/dL (11.2-15.7); Immature Grans % 0.8 %; Lymphocytes % 21.2 %; MCH 27.5 pg (27.0-33.0); MCHC 31.8 % (32.0-36.0); MCV 86 fL (80-95); MPV 9.3 fL (8.0-11.0); Monocytes % 5.7 %; Platelet Count 356 10^3/uL (130-400); RBC 5.16 10^6/uL (3.93-5.22); RDW 16.7 % (11.7-14.6); RDW-SD 53.1 fL; WBC 16.73 10^3/uL (4.4-10.8)
[2024-09-07 12:36] LABS: Absolute Basophil Count 0.07 10^3/uL (0.0-0.2); Absolute Eosinophil Count 0.49 10^3/uL (0.0-0.7); Absolute Lymphocyte Count 3.55 10^3/uL (1.2-3.4); Absolute Monocyte Count 0.95 10^3/uL (0.1-0.8); Absolute Neutrophil Count 11.54 10^3/uL (1.2-6.7)
[2024-09-07 13:02] LABS: ALT 35 U/L (14-59); AST 19 U/L (15-37); Albumin 3.5 g/dL (3.4-5.0); Alkaline Phosphatase 87 U/L (46-116); Anion Gap 4.7 mmol/L (3-11); BUN 15 mg/dL (7-18); Bilirubin, Total 0.51 mg/dL (0.2-1.0); CO2 33.3 mmol/L (21.0-32.0); CREATININE 0.9 mg/dL (0.55-1.02); Calcium 10.2 mg/dL (8.5-10.1); Chloride 102 mmol/L (98-107); Estimated GFR 64.63 (mL/min/1.73m2); Glucose 93 mg/dL (74-106); Sodium 140 mmol/L (136-145); Total Protein 6.7 g/dL (6.4-8.2)
[2024-09-07 13:18] LABS: Calculated LDL 87 mg/dL (<100); Cholesterol 227 mg/dL (<200); HDL Cholesterol 94 mg/dL (40-60); TSH (W/Ref FT4) 1.03 uIU/mL (0.36-3.74); Triglyceride 233 mg/dL (<150)
[2024-09-07 13:24] LABS: Potassium 2.8 mmol/L (3.5-5.1)
[2024-09-08 18:00] LABS: Hemoglobin A1C 6.6 % (<5.7)
== END 2024-09-07 03:11 | disposition home or self-care (01) ==
LOC: LBO 03:11
PROVIDERS: Family Medicine; PCP Physician Assistant Medical; Visit Provider Physician Assistant Medical
DX: R79.89 Other specified abnormal findings of blood chemistry (principal); E78.5 Hyperlipidemia, unspecified; R73.03 Prediabetes; E87.6 Hypokalemia
CPT/HCPCS: 36415; 80053; 80061; 83036; 83735; 84443; 85025

== ENCOUNTER 2024-09-11 00:47 | Outpatient (CLI) | payer MEDICARE, OTHER, SELFPAY ==
[2024-09-11 13:38] LABS: Anion Gap 6.5 mmol/L (3-11); BUN 19 mg/dL (7-18); CO2 33.5 mmol/L (21.0-32.0); CREATININE 0.9 mg/dL (0.55-1.02); Calcium 10.4 mg/dL (8.5-10.1); Chloride 101 mmol/L (98-107); Estimated GFR 64.63 (mL/min/1.73m2); Glucose 111 mg/dL (74-106); Potassium 3.4 mmol/L (3.5-5.1); Sodium 141 mmol/L (136-145)
== END 2024-09-11 00:48 | disposition home or self-care (01) ==
PROVIDERS: PCP Physician Assistant Medical; Visit Provider Family Medicine
DX: E87.6 Hypokalemia (principal)
CPT/HCPCS: 36415; 80048

== ENCOUNTER 2024-09-14 18:43 | Emergency (ER) | payer MEDICARE, OTHER, SELFPAY ==
--- NOTE | 2024-09-14 18:30 | RT.EKG_ITS ---
APPROVED REPORT Exam: Resting ECG Reason for Exam: Palpitations Patient Location: E HR:76 bpm ECG Measurements Heart Rate 76 AXIS OH 157 P 69 QRSd 92 QRS -75 QT 375 T 84 QTc 421 Conclusion Sinus rhythm...normal P axis, V-rate 60- 99 Probable left atrial enlargement...P >50mS, <-0.10mV V1 Inferior infarct, old...Q >35mS, II III aVF
[2024-09-14 18:53] VITALS: BP 178/75; PULSE 84; RESP 15; TEMP 36.3; O2SAT 94
[2024-09-14 19:46] VITALS: BP 138/61; PULSE 69; RESP 19; O2SAT 99
[2024-09-14 20:35] VITALS: BP 144/71; PULSE 70; RESP 19; O2SAT 94
[2024-09-14 21:11] VITALS: BP 144/71; PULSE 70; RESP 19; O2SAT 94
== END 2024-09-14 21:13 | disposition left against medical advice (07) ==
LOC: ER 19:12
PROVIDERS: PCP Physician Assistant Medical
DX: Z53.21 Procedure and treatment not carried out due to patient leaving prior to being seen by health care provider (principal)
CPT/HCPCS: 93005; 93010

== ENCOUNTER → 2024-09-21 11:18 | Outpatient (BNVA) | payer MEDICARE, OTHER, SELFPAY | PROVIDERS: PCP Physician Assistant Medical; Referring Provider Physician Assistant Medical; Visit Provider Physician Assistant Surgical | DX: J47.9 Bronchiectasis, uncomplicated (principal); G47.33 Obstructive sleep apnea (adult) (pediatric); J44.9 Chronic obstructive pulmonary disease, unspecified; A31.9 Mycobacterial infection, unspecified; J32.9 Chronic sinusitis, unspecified; I77.82 Antineutrophilic cytoplasmic antibody [ANCA] vasculitis | CPT/HCPCS: 99214 ==

== ENCOUNTER 2024-09-23 18:34 | Outpatient (REF) | payer MEDICARE, OTHER, SELFPAY ==
[2024-09-23 21:00] LABS: ALT 129 U/L (14-59); AST 25 U/L (15-37); Albumin 3.6 g/dL (3.4-5.0); Alkaline Phosphatase 169 U/L (46-116); Anion Gap 7.9 mmol/L (3-11); BUN 13 mg/dL (7-18); Bilirubin, Total 0.4 mg/dL (0.2-1.0); CO2 30.1 mmol/L (21.0-32.0); Chloride 102 mmol/L (98-107); Estimated GFR 56.95 (mL/min/1.73m2); Glucose 206 mg/dL (74-106); Magnesium 2.2 mg/dL (1.8-2.4); Potassium 3.6 mmol/L (3.5-5.1); Sodium 140 mmol/L (136-145); Total Protein 6.7 g/dL (6.4-8.2)
== END 2024-09-23 18:35 | disposition home or self-care (01) ==
LOC: NCHCN 18:34
PROVIDERS: PCP Physician Assistant Medical; Visit Provider Family Medicine
DX: E87.6 Hypokalemia (principal)
CPT/HCPCS: 80053; 83735

== ENCOUNTER 2024-09-28 02:02 | Outpatient (CLI) | payer MEDICARE, OTHER, SELFPAY ==
[2024-09-28 12:22] LABS: Abs Immature Grans 0.14 10^3/uL (0.0-0.06); Absolute Basophil Count 0.07 10^3/uL (0.0-0.2); Absolute Eosinophil Count 0.36 10^3/uL (0.0-0.7); Absolute Monocyte Count 0.66 10^3/uL (0.1-0.8); Basophils % 0.4 %; Eosinophils % 2.1 %; HCT 46.7 % (36.0-46.0); HGB 14.8 g/dL (11.2-15.7); Immature Grans % 0.8 %; Lymphocytes % 9.8 %; MCH 27.9 pg (27.0-33.0); MCHC 31.7 % (32.0-36.0); MCV 88 fL (80-95); MPV 9.6 fL (8.0-11.0); Monocytes % 3.8 %; Neutrophils % 83.1 %; Platelet Count 351 10^3/uL (130-400); RBC 5.31 10^6/uL (3.93-5.22); RDW 16.2 % (11.7-14.6); RDW-SD 52.6 fL; WBC 17.29 10^3/uL (4.4-10.8)
[2024-09-28 12:23] LABS: Absolute Lymphocyte Count 1.69 10^3/uL (1.2-3.4); Absolute Neutrophil Count 14.37 10^3/uL (1.2-6.7)
[2024-09-28 12:49] LABS: ALT 110 U/L (14-59); AST 33 U/L (15-37); Albumin 3.6 g/dL (3.4-5.0); Alkaline Phosphatase 141 U/L (46-116); Anion Gap 6.5 mmol/L (3-11); BUN 16 mg/dL (7-18); Bilirubin, Total 0.5 mg/dL (0.2-1.0); CO2 32.5 mmol/L (21.0-32.0); Calcium 10.2 mg/dL (8.5-10.1); Chloride 101 mmol/L (98-107); Estimated GFR 56.95 (mL/min/1.73m2); Glucose 165 mg/dL (74-106); Potassium 3.3 mmol/L (3.5-5.1); Sodium 140 mmol/L (136-145); Total Protein 7.1 g/dL (6.4-8.2)
[2024-09-28 13:10] LABS: Vitamin D 25 Total 22 ng/mL (30-100)
[2024-09-28 13:29] LABS: POTASSIUM,URINE RANDOM 9.7 mmol/L
[2024-09-28 13:32] LABS: Creatinine,Urine < 13.0 mg/dL
[2024-09-28 21:39] LABS: Ionized Calcium 1.25 mmol/L (1.14-1.35)
[2024-09-28 22:31] LABS: Parathyroid Hormone,Intact 92.2 pg/mL (19.0-88.0)
[2024-10-05 09:58] LABS: 1,25-Dihydroxyvitamin D 52 pg/mL (18-78)
== END 2024-09-28 02:03 | disposition home or self-care (01) ==
PROVIDERS: PCP Physician Assistant Medical; Visit Provider Internal Medicine
DX: E83.52 Hypercalcemia (principal); I77.82 Antineutrophilic cytoplasmic antibody [ANCA] vasculitis; R79.89 Other specified abnormal findings of blood chemistry
CPT/HCPCS: 36415; 80053; 82306; 82330; 82565; 82652; 83970; 84133; 85025

== ENCOUNTER 2024-10-05 02:46 | Outpatient (CLI) | payer MEDICARE, OTHER, SELFPAY ==
[2024-10-05 13:07] LABS: Abs Immature Grans 0.06 10^3/uL (0.0-0.06); Absolute Basophil Count 0.04 10^3/uL (0.0-0.2); Absolute Monocyte Count 0.89 10^3/uL (0.1-0.8); Basophils % 0.3 %; Eosinophils % 5.3 %; HCT 44.4 % (36.0-46.0); HGB 14.4 g/dL (11.2-15.7); Immature Grans % 0.5 %; Lymphocytes % 18.9 %; MCH 28.3 pg (27.0-33.0); MCHC 32.4 % (32.0-36.0); MCV 87 fL (80-95); MPV 9.5 fL (8.0-11.0); Monocytes % 7.4 %; Neutrophils % 67.6 %; Platelet Count 379 10^3/uL (130-400); RBC 5.08 10^6/uL (3.93-5.22); RDW-SD 51.4 fL; WBC 11.98 10^3/uL (4.4-10.8)
[2024-10-05 13:09] LABS: Absolute Eosinophil Count 0.63 10^3/uL (0.0-0.7); Absolute Lymphocyte Count 2.26 10^3/uL (1.2-3.4)
[2024-10-05 13:32] LABS: BUN 11 mg/dL (7-18); CREATININE 0.7 mg/dL (0.55-1.02); Calcium 10.4 mg/dL (8.5-10.1); Chloride 104 mmol/L (98-107); Estimated GFR 87.37 (mL/min/1.73m2); Glucose 121 mg/dL (74-106); Potassium 3.6 mmol/L (3.5-5.1); Sodium 141 mmol/L (136-145)
== END 2024-10-05 02:47 | disposition home or self-care (01) ==
PROVIDERS: PCP Physician Assistant Medical; Visit Provider Family Medicine
DX: D72.829 Elevated white blood cell count, unspecified (principal); E87.6 Hypokalemia
CPT/HCPCS: 36415; 80048; 85025

== ENCOUNTER 2024-10-22 09:36 | Outpatient (CLI) | payer MEDICARE, OTHER, SELFPAY ==
--- NOTE | 2024-10-22 11:35 | DI.RAD_ITS ---
Exam(s) XR CHEST 2V PA LATERAL EXAM: XR CHEST 2V PA LATERAL CLINICAL HISTORY: COUGH, R05.9 TECHNIQUE: 2D digital imaging was performed. Two views. COMPARISON: CT CT CHEST WO from 05/11/2024 CR,XR XR CHEST 2V PA LATERAL from 08/29/2024 FINDINGS: HEART: Normal size. Aorta: Not dilated. PULMONARY VASCULATURE: Normal. MEDIASTINUM: Unremarkable. LUNGS: Mild lingular scarring. PLEURAL SPACE: No pleural effusion or pneumothorax. BONE:Unremarkable for age. SOFT TISSUES: Unremarkable. IMPRESSION: No acute abnormality. DATA REPOSITORY: RADIATION DOSE DELIVERED:
== END 2024-10-22 09:56 ==
LOC: DI 09:36
PROVIDERS: PCP Physician Assistant Medical; Visit Provider Family Medicine
DX: R05.9 Cough, unspecified (principal)
CPT/HCPCS: 71046

== ENCOUNTER 2024-10-27 04:03 | Outpatient (CLI) | payer MEDICARE, OTHER, SELFPAY ==
[2024-10-27 12:00] LABS: Abs Immature Grans 0.14 10^3/uL (0.0-0.06); Absolute Basophil Count 0.06 10^3/uL (0.0-0.2); Absolute Eosinophil Count 0.34 10^3/uL (0.0-0.7); Absolute Lymphocyte Count 2.49 10^3/uL (1.2-3.4); Absolute Monocyte Count 1.07 10^3/uL (0.1-0.8); Basophils % 0.4 %; Eosinophils % 2.1 %; HCT 44.8 % (36.0-46.0); Immature Grans % 0.9 %; Lymphocytes % 15.6 %; MCH 28.3 pg (27.0-33.0); MCHC 31.3 % (32.0-36.0); MCV 91 fL (80-95); MPV 9.8 fL (8.0-11.0); Monocytes % 6.7 %; Neutrophils % 74.3 %; Platelet Count 350 10^3/uL (130-400); RBC 4.94 10^6/uL (3.93-5.22); RDW 14.7 % (11.7-14.6); RDW-SD 49.4 fL; WBC 15.99 10^3/uL (4.4-10.8)
[2024-10-27 12:03] LABS: Absolute Neutrophil Count 11.88 10^3/uL (1.2-6.7)
[2024-10-27 12:39] LABS: ALT 32 U/L (14-59); AST 18 U/L (15-37); Albumin 3.5 g/dL (3.4-5.0); Alkaline Phosphatase 101 U/L (46-116); Anion Gap 5.5 mmol/L (3-11); BUN 13 mg/dL (7-18); Bilirubin, Total 0.4 mg/dL (0.2-1.0); CO2 31.5 mmol/L (21.0-32.0); CREATININE 0.9 mg/dL (0.55-1.02); Calcium 10.1 mg/dL (8.5-10.1); Chloride 103 mmol/L (98-107); Estimated GFR 64.63 (mL/min/1.73m2); Glucose 101 mg/dL (74-106); Potassium 3.6 mmol/L (3.5-5.1); Sodium 140 mmol/L (136-145); Total Protein 6.9 g/dL (6.4-8.2)
== END 2024-10-27 04:04 | disposition home or self-care (01) ==
PROVIDERS: PCP Physician Assistant Medical; Visit Provider Internal Medicine
DX: R79.89 Other specified abnormal findings of blood chemistry (principal)
CPT/HCPCS: 36415; 80053; 85025

== ENCOUNTER 2025-01-01 00:46 | Outpatient (CLI) | payer MEDICARE, OTHER, SELFPAY ==
--- NOTE | 2025-01-01 | DI.CT_ITS ---
Exam(s) CT CHEST WO EXAM: CT CHEST WO CLINICAL HISTORY: Bronchiectasis wo complication, J47.9; granulomatosis with polyangiitis, TECHNIQUE: Imaging Protocol: Axial computed tomography images with coronal and sagittal reformatted images were created and reviewed. Computer aided detection (CAD) was utilized. CONTRAST MATERIAL: Noncontrast COMPARISON: CT CT CHEST WO from 05/11/2024 CR XR CHEST 2V PA LATERAL from 10/22/2024 FINDINGS: Pulmonary parenchyma: mild bilateral upper lobe scarring and mild emphysematous changes. There has been interval clearing of previously noted ground-glass opacities in the upper lobes. No new consolidation. No dominant measurable mass. There are few scattered calcified granulomas, greater in the right upper lobe. Tracheobronchial tree: There is stable mild upper lobe bronchiectasis. Mucous plugging is no longer present. Mediastinum and Marla: No dominant adenopathy or fluid collection. Pleura: No effusion. No pneumothorax. Heart: The heart is not dilated. Mild coronary artery calcifications are seen. Aorta: Thoracic aorta non-dilated. Mild atherosclerotic changes. Upper abdomen: No acute findings. Bones: Degenerative changes in the spine. Soft tissues: Unremarkable. IMPRESSION: Interval clearing of previously noted upper lobe ground-glass opacities and mucous plugging. Mild upper lobe scarring and bronchiectasis. RADIATION DOSE DELIVERED: 141.51mGy.cm Total DLP DATA REPOSITORY: All CT scans at this facility are submitted to the National Radiology Data Registry (NRDR) Dose Index Registry (DIR) with the [employer] ([employer]). RADIATION OPTIMIZATION: All CT scans at this facility use at least one of these dose optimization techniques: automated exposure control; mA and/or kV adjustment per patient size (includes targeted exams where dose is matched to clinical indication); or iterative reconstruction.
== END 2025-01-01 01:06 ==
LOC: DI 00:46
PROVIDERS: PCP Family Medicine; Visit Provider Internal Medicine Pulmonary Disease
DX: J47.9 Bronchiectasis, uncomplicated (principal)
CPT/HCPCS: 71250

== ENCOUNTER 2025-02-01 14:00 | Outpatient (CLI) | payer MEDICARE, OTHER, SELFPAY ==
--- NOTE | 2025-02-01 14:15 | RT.EKG_ITS ---
APPROVED REPORT Exam: Resting ECG Reason for Exam: SVT Patient Location: O HR:69 bpm ECG Measurements Heart Rate 69 AXIS MS 167 P 19 QRSd 98 QRS -73 QT 399 T 78 QTc 428 Conclusion Sinus rhythm...normal P axis, V-rate 50- 99 Abnormal R-wave progression, early transition...QRS area>0 in V2 Inferior infarct, old...Q >35mS, II III aVF
== END 2025-02-01 14:01 | disposition home or self-care (01) ==
LOC: DI.CARD 14:19
PROVIDERS: PCP Family Medicine; Visit Provider Registered Nurse
DX: I47.10 Supraventricular tachycardia, unspecified (principal)
CPT/HCPCS: 93010

== ENCOUNTER → 2025-02-01 14:00 | Outpatient (BNVA) | payer MEDICARE, OTHER, SELFPAY | PROVIDERS: PCP Family Medicine; Referring Provider Family Medicine; Visit Provider Registered Nurse | DX: I47.10 Supraventricular tachycardia, unspecified (principal); R42 Dizziness and giddiness; R06.00 Dyspnea, unspecified; Z79.02 Long term (current) use of antithrombotics/antiplatelets; J44.9 Chronic obstructive pulmonary disease, unspecified | CPT/HCPCS: 99214; 93005; 93270 ==

== ENCOUNTER 2025-02-01 14:50 | Outpatient (CLI) | payer MEDICARE, OTHER, SELFPAY | END 2025-02-01 14:51 | disposition home or self-care (01) | PROVIDERS: PCP Family Medicine; Visit Provider Registered Nurse | DX: R42 Dizziness and giddiness (principal); I47.10 Supraventricular tachycardia, unspecified | CPT/HCPCS: 93270 ==

== ENCOUNTER → 2025-02-10 13:26 | Outpatient (BNVA) | payer MEDICARE, OTHER, SELFPAY | PROVIDERS: PCP Family Medicine; Visit Provider Nurse Practitioner Gerontology | DX: N39.0 Urinary tract infection, site not specified (principal) | CPT/HCPCS: 99213; 51798 ==

== ENCOUNTER 2025-02-12 01:39 | Outpatient (CLI) | payer MEDICARE, OTHER, SELFPAY ==
--- NOTE | 2025-02-12 13:30 | DI.US_ITS ---
APPROVED REPORT EXAM: Comprehensive 2D, Doppler, and color-flow Echocardiogram Patient Location: Out-Patient Aerospace Manager: Filippo Ortega RDCS (AE) Indications: MUNGUIA, lightheadedness Other Information Study Quality: Adequate Conclusion Borderline concentric left ventricular hypertrophy. Ejection fraction is 60 to 65%. Wall motion is normal. Normal right ventricular size and function Both atria are normal in size There is no structural or hemodynamically significant valvular disease Wall motion Left Ventricle The left ventricle is normal size. The left ventricular systolic function is normal. The left ventricular ejection fraction is within the normal range. Borderline concentric left ventricular hypertrophy. There is normal LV segmental wall motion. There is no ventricular septal defect visualized. LVEF is 60-65%. Right Ventricle The right ventricle is normal size. The right ventricular systolic function is normal. Atria The left atrium size is normal. The right atrium size is normal. Atrial septum is thin and hypermobile Aortic Valve The aortic valve is normal in structure. Aortic valve is trileaflet. There is no aortic valvular stenosis. No aortic regurgitation is present. Mitral Valve The mitral valve is normal in structure. No evidence of mitral valve stenosis. There is no mitral valve regurgitation noted. Tricuspid Valve The tricuspid valve is normal in structure. There is no tricuspid valve stenosis. There is trivial tricuspid valve regurgitation noted. Pulmonic Valve The pulmonary valve is normal in structure. There is no pulmonic valvular stenosis. There is no pulmonic valvular regurgitation. Great Vessels The aortic root is normal in size. The ascending aorta is normal in size. Aortic arch is not well visualized. IVC is normal in size and collapses >50% with inspiration. Pericardium There is no pericardial effusion. 2D Dimensions IVSD d PLAX 1.11 cm F: 0.6-1.0 Ao Root d 2.85 cm F: 2.7 - 3.3 LVPW d PLAX 1.10 cm F: 0.6 - 1.0 Ao Asc Diam d 3.07 cm F: 2.3 - 3.1 LVID d PLAX 4.43 cm F: 3.8 - 5.2 LVDs 3.01 cm F: 2.2 - 3.5 LV EF Teichholz 60.2 % FS 31.91 % LV EDV (Teich) 88.9 mL LV ESV (Teich) 35.4 mL Stroke Vol Index (Teich) 32.63 M-Mode TAPSE 1.84 cm (M/F) >1.7 Auto EF LV EDV A4C 71.5 mL LV EDV A2C 47.9 mL LV EDV BP 59.0 mL LV ESV A4C 28.9 mL LV ESV A2C 16.8 mL LV ESV BP 22.3 mL LVEF(%) A4C 59.6 % LVEF(%) A2C 65.1 % LVEF(%) BP 62.2 % LV SV A4C 42.6 ml LV SV A2C 31.2 ml LV SV BP 36.7 ml LV CO A4C 2.8 L/min LV CO A2C 2.1 L/min LV CO BP 2.4 L/min HR A4C 65.93 BPM HR A2C 65.82 BPM LV EDV Index (BP) LA Volume LA Length A4C 3.7 cm LA Length A2C 4.6 cm LA Area A4C s 6.72 cm2 LA Area A2C s 9.89 cm2 LA Vol A4C A-L 10.34 mL LA Vol A2C A-L 18.17 mL LA Vol Biplane A-L 15.2 mL LA Vol/BSA A4C A-L LA Vol/BSA A2C A-L LA Vol/BSA BP A-L 9.3 mL/m2 LA Vol A4C MOD 9.5 mL LA Vol A2C MOD 17.0 mL LA Vol BP MOD 14.1 mL RA Volume RA Area A4C 6.3 cm2 RA ESV A4C (A-L) 9.2mL RA Vol/BSA A4C A-L RA Length A4C 3.6 cm RA ESV A4C (MOD) 9.3mL LV Diastology MV E' medial 0.076 (>0.07 m/s) MV E Vmax 0.75 (0.4-1.3 m/s) MV E/E' MED 9.92 (<14) MV A Vmax 1.00 (0.4-1.3 m/s) MV E' lateral 0.062 (>0.1 m/s) E/A Ratio 0.8 MV E/E' LAT 12.16 (<14) MV E' Average 0.069 m/s MV E/E'(average) 10.92 Aortic Valve AoV Vmax 1.09 m/s LVOT Vmax 1.00 m/s AoV Peak Grad 4.7 mmHg LVOT Peak Grad 4.0 mmHg AoV Area (Vmax) 2.63 cm2 LVOT VTI 0.236 m AoV VTI 0.266 m LVOT Mean Grad 2.0 mmHg AoV Mean Sami. 0.80 m/s LVOT SV 67.77 mL AoV Mean Grad 2.9 mmHg LVOT Diam s 1.90 cm AoV Area (VTI) 2.54 cm2 AV Regurg Peak Gr. 4.74 mmHg Velocity Ratio 0.92 Mitral Valve MV DT 256 (160-240 msec) Pulmonary Valve PV Vmax 0.76 (0.5-1.5 m/s) RVOT Vmax 0.67 m/s PV Peak Grad 2.3 mmHg RVOT Peak Gr. 1.8 mmHg PV Mean Sami 0.52 m/s RVOT VTI 0.164 m PV Mean Grad 1.3 mmHg RVOT Mean Gr. 0.9 mmHg Tricuspid Valve TR Vmax 2.28 m/s TR Peak Grad 20.7 mmHg
== END 2025-02-12 01:59 ==
PROVIDERS: PCP Family Medicine; Visit Provider Internal Medicine Cardiovascular Disease
DX: R06.00 Dyspnea, unspecified (principal)
CPT/HCPCS: 93306

== ENCOUNTER 2025-02-17 12:54 | Emergency (ER) | payer MEDICARE, OTHER, SELFPAY ==
[2025-02-17] VITALS (7 sets, daily range): BP systolic 145–174; BP diastolic 65–95; PULSE 67–87; RESP 15–19; TEMP 36.6; O2SAT 92–94
--- NOTE | 2025-02-17 12:45 | RT.EKG_ITS ---
APPROVED REPORT Exam: Resting ECG Reason for Exam: SOB Patient Location: E HR:86 bpm ECG Measurements Heart Rate 86 AXIS CA 160 P 45 QRSd 90 QRS -74 QT 377 T 82 QTc 452 Conclusion Sinus rhythm...normal P axis, V-rate 60- 99 Inferior infarct, old...Q >35mS, II III aVF Consider anterior infarct...Q >30mS in V2-V5 No Occlusion NV
--- NOTE | 2025-02-17 13:00 | W.ED.GENAD ---
Discharge Plan Discharge Details Chief Complaint: Dizzy/Sync Clinical Impression: Dizziness Primary Care Provider: Arcenio Marino ED Provider: Vazquez Carcamo Home Meds and New Rx's Prescriptions: No Action CPAP 1 device miscellaneous DAILY atorvastatin 40 mg tablet 40 mg PO DAILY venlafaxine 37.5 mg tablet 37.5 mg PO DAILY alendronate [Fosamax] 1 tab PO .ONCE A WEEK prednisone 5 mg tablet 5 mg PO DAILY sulfamethoxazole-trimethoprim 800-160 mg tablet 1 tab PO .qod Patient Comments: rheumatology Premarin 0.625 mg/gram cream 0.625 mg vaginal DIRECTED Qty: 90 4RF Rx Instructions: apply a pea sized amount to the vaginal opening 2 times a week levothyroxine 50 mcg tablet 50 mcg PO DAILY diltiazem HCl 180 mg capsule,extended release 24hr 180 mg PO DAILY Qty: 90 3RF umeclidinium-vilanterol 62.5-25 mcg/actuation blister with device 1 inh inhalation DAILY Qty: 60 8RF levalbuterol tartrate 45 mcg/actuation HFA aerosol inhaler 2 inh inhalation Q6H Qty: 3 12RF diazepam 10 mg tablet 10 mg PO QHS PRN Patient Comments: TAKE ONE TABLET BY MOUTH AT BEDTIME NEEDED cholecalciferol (vitamin D3) 1,250 mcg (50,000 unit) capsule 1,250 mcg PO DAILY HPI General Date/Time Provider Initiated Documentation: 02/17/25 13:00. HPI Narrative: MDM This is an overall well-appearing normothermic and not tachycardic 79-year-old female with dizziness concerning for multiple etiologies. Patient is having no ongoing dizziness nor nystagmus so I did not applied the hints exam. Nonetheless she has vascular risk factors of hypertension, diabetes and so I am concerned for the possibility of TIA for which patient will undergo CT scan of her head and neck. Given no ongoing symptoms I do not feel that the patient is a TNK candidate. He had no tonic clonic activity to suggest seizures no indication for EEG. No fevers nor nuchal rigidity to suggest meningitis so no indication for lumbar puncture. No pain out of proportion to suggest necrotizing soft tissue infection. I considered sepsis however patient is quite well-appearing and has reassuring vitals and denies fevers so I felt that the risks of broad-spectrum antibiotics and false positive from blood cultures outweigh the benefits. Will assess for any acute electrolyte abnormality. No chiropractic manipulation to suggest increased risk for cervical arterial dissection. No generator exposure to suggest increased risk for carbon monoxide toxicity. Patient denies black or bloody stools so not suspicious for acute blood loss anemia. No lower extremity edema nor history of heart failure to suggest acute CHF. No visual changes to suggest giant cell arteritis. No chest pain to suggest ACS however given age and sex will obtain troponin testing. ECG without blocks. Normal sinus rhythm. No ischemic changes. Left axis deviation no signs of LVH. Given shortness of breath will obtain D-dimer to rule stratify for PE. Patient has no wheezes so despite history of COPD I did not feel she required a venous blood gas nor doxycycline nebulized ipratropium albuterol nor prednisone as I was not suspicious for acute exacerbation. 1:40 PM CBC lacks anemia and thrombocytopenia but is notable for leukocytosis. Reassuring TSH. Initial reassuring troponin. Basic metabolic panel with seemingly chronic mild hypokalemia. No VALERIA. D-dimer within normal limits. 3:12 PM I spoke to Dr. Chakraborty from tele neuro who adivsed 81 asa, CRP and ESR and MRI brain w/and w/out. 3:55 PM Patient signed out to Dr. Dobson pending MRI. Based on patient's symptoms she may or may not benefit from hospitalization. She has had no dysrhythmia on telemetry. In the event that there is a peripheral component to her symptoms we will attempt treatment with meclizine. Will defer final disposition to Dr. Dobson pending MRI. Patient will likely benefit from an ambulatory trial if she were to go home. Based on her symptoms she may also benefit from hospitalization pending reassessment. Chronic conditions affecting the care of the patient: Vasculitis COPD History obtained from an outside historian: N/A External record review: N/A Diagnostic interpretations performed by me: Per my independent interpretation chest x-ray shows: Per my independent interpretation EKG shows: No occlusion [place]. No blocks. ]Medications: N/A Social determinants of health affecting disposition: N/A Management discussed with: tele neuro Treatment/interventions considered: N/A Response to therapies provided: N/A HPI This is a patient with a history of vasculitis presenting with dizziness and pressure in the back of the head. The patient reports experiencing intermittent episodes of dizziness and pressure in the back of the head, similar to a pre-migraine state, over the past month. She describes the sensation as overall dizziness and lightheadedness, without any associated chest pain or fainting spells. She also notes shortness of breath that started today. Her blood pressure readings at home this morning were 157/80, which later increased to 170. She is currently on diltiazem for pulse regulation and has been informed that certain antibiotics can cause dizziness. She has discussed her dizziness with all her specialists, including her primary care doctor, who suggested it might be related to her hyperthyroidism. She reports no weakness in specific body parts but feels generally weak. She has no history of stroke. She is not currently near a generator and has not experienced any recent head trauma or falls. She reports no history of blood clots in her legs or lungs, and no presence of black or bloody stools. She is not on any anticoagulant therapy. She is currently under cardiac monitoring and had an echocardiogram a week ago to investigate potential side effects from her vasculitis treatment that could be causing her dizziness. She has not undergone any chiropractic manipulation of her neck. Exam General: Well-appearing in no acute distress speaking in complete sentences. Head: Normocephalic, atraumatic. Eye:[Pupils equal, round reactive to light.] Extraocular eye movements intact. No conjunctival injection. No scleral icterus. Ear, nose, mouth, throat: Grossly normal inspection. Normal voice, handling secretions normally. Neck: Trachea midline. Cardiovascular: Well-perfused distal extremities. Regular rate and rhythm Respiratory: Nonlabored respiration. Clear lungs bilaterally. No wheezes. No respiratory distress. Gastrointestinal: Nondistended abdomen. Musculoskeletal: No edema. Moving all 4 extremities spontaneously. Skin: Normal for age and race, grossly normal temperature and turgor. No acute rash. Neurologic: Alert and appropriate, no apparent acute deficits. Cranial nerves II through XII intact grossly. No dysmetria. No dysdiadochokinesia. 5 out of 5 bilateral upper and lower extremity strength. No pronator drift. GCS 15. Psychiatric: Mood and manner are appropriate. Grooming and personal hygiene are appropriate. Related Data Home Medications ?Medication ?Instructions ?Recorded ?Confirmed CPAP 1 device miscellaneous DAILY 08/03/19 02/17/25 atorvastatin 40 mg tablet 40 mg PO DAILY 07/10/21 02/17/25 levothyroxine 50 mcg tablet 50 mcg PO DAILY 03/08/22 02/17/25 venlafaxine 37.5 mg tablet 37.5 mg PO DAILY 06/18/22 02/17/25 alendronate 1 tab PO .ONCE A WEEK 08/30/23 02/17/25 umeclidinium 62.5 mcg-vilanterol 1 inh inhalation DAILY #60 ea 03/24/24 02/17/25 25 mcg/actuation powdr for inhalation diltiazem HCl 180 mg 180 mg PO DAILY #90 caps 08/07/24 02/17/25 capsule,extended release 24 hr levalbuterol tartrate 45 2 inh inhalation Q6H #3 multiple 10/02/24 02/17/25 mcg/actuation aerosol inhaler units prednisone 5 mg tablet 5 mg PO DAILY 02/01/25 02/17/25 conjugated estrogens 0.625 mg/gram 0.625 mg vaginal DIRECTED #90 02/10/25 02/17/25 vaginal cream (Premarin) grams sulfamethoxazole 800 1 tab PO .qod 02/10/25 02/17/25 mg-trimethoprim 160 mg tablet cholecalciferol (vitamin D3) 1,250 1,250 mcg PO DAILY 02/17/25 02/17/25 mcg (50,000 unit) capsule diazepam 10 mg tablet 10 mg PO QHS PRN 02/17/25 02/17/25 Previous Rx's ?Medication ?Instructions ?Recorded umeclidinium 62.5 mcg-vilanterol 1 inh inhalation DAILY #60 ea 03/24/24 25 mcg/actuation powdr for inhalation diltiazem HCl 180 mg 180 mg PO DAILY #90 caps 08/07/24 capsule,extended release 24 hr levalbuterol tartrate 45 2 inh inhalation Q6H #3 multiple 10/02/24 mcg/actuation aerosol inhaler units conjugated estrogens 0.625 mg/gram 0.625 mg vaginal DIRECTED #90 02/10/25 vaginal cream (Premarin) grams Allergies Allergy/AdvReac Type Severity Reaction Status Date / Time clarithromycin (From Biaxin) Allergy Severe rapid Verified 02/17/25 13:03 heart rate naproxen Allergy swelling Verified 02/17/25 13:03 propoxyphene Allergy Other (See Verified 02/17/25 13:03 Comment) ciprofloxacin (From Cipro) AdvReac Intermediate rapid Verified 02/17/25 13:03 heart rate amitriptyline AdvReac weight gain Verified 02/17/25 13:03 ergocalciferol (vitamin D2) AdvReac leg pain Verified 02/17/25 13:03 (ergocalciferol (vit D2)) oxycodone HCl (From AdvReac Contraindic Verified 02/17/25 13:03 OxyContin) ated acetaminophen/hydrocodone Allergy Mild nausea Uncoded 02/17/25 13:03 General SELENE: 3 PFSH All Active Problems (Updated 02/17/25 @ 15:58 by Vazquez Carcamo MD) Dizziness (Acute) Imbalance (Acute) ANCA-associated vasculitis (Acute) Positive IGNA (antinuclear antibody) (Acute) Conductive hearing loss in right ear (Acute) Mycobacteria, atypical (Acute) COPD (chronic obstructive pulmonary disease) (Chronic) Essential hypertension (Acute) Bronchiectasis (Acute) Dyspnea (Acute) Melanocytic nevus (Acute) Medial epicondylitis (Acute) Acute bronchitis (Acute) Major depression (Chronic) Fatigue (Acute) Psychophysiological insomnia (Acute) Nicotine dependence (Acute) Anxiety disorder (Acute) Nondisplaced fracture of right radial styloid process, initial encounter for closed fracture (Acute 04/14/23) Closed fracture of right distal radius (Acute) Osteoarthritis of carpometacarpal joint of right thumb (Acute) Degenerative joint disease of right knee (Acute) DEPO 06/18/22 Hoarseness (Acute) Chronic cough (Acute) Recurrent UTI (Acute) Mucocele, buccal (Acute) Oral mucosal lesion (Acute) Supraventricular tachycardia (Chronic) Obstructive sleep apnea (adult) (pediatric) (Acute) 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, soft tissue, and skin (Acute) Medical History (Updated 02/17/25 @ 15:58 by Vazquez Carcamo MD) Granulomatosis with polyangiitis [facility]- Rheumatology Abnormal auditory perception of both ears Pneumonia 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 Brother , few 6 weeks of age No problems noted. Daughter Alive and well Son Alive and well Social History Smoking/Tobacco Use Status: Former Tobacco Use Quit Date: 07/15/79 Tobacco: How many years used: 25 Smoking risk assessment performed?: Yes Alcohol Intake: current Alcohol Intake frequency: a few times a month Drug use: Never Substance use type: does not use Housing: house What type of physical activity do you participate in: walking and other Details: snowshoe, alpine ski, senior exercise class (2x/week) Duration: 45-60 minutes/day Frequency: 3-4 times per week Do you feel safe at home: Yes Do you feel safe in your relationship?: Yes
--- NOTE | 2025-02-17 13:15 | DI.RAD_ITS ---
Exam(s) XR CHEST 2V PA LATERAL EXAM: XR CHEST 2V PA LATERAL CLINICAL HISTORY: Dizziness. TECHNIQUE: 2D digital imaging was performed. COMPARISON: CR XR CHEST 2V PA LATERAL from 10/22/2024 FINDINGS: 2 views: Heart size is normal. The mediastinum is not widened. Previously described increased markings in the lingular segment left lung has resolved. There are mild increased markings in left lower lobe retrocardiac region which are unchanged and probably represent vascular markings. There is platelike atelectasis now evident in the medial right lung base. There are no pleural effusions. No pulmonary edema. IMPRESSION: Improved appearance of the left lung. Atelectasis-filtrate which was evident in October 2024 have resolved. There is new platelike atelectasis in the right lung base. There are no pleural effusions. DATA REPOSITORY: RADIATION DOSE DELIVERED:
--- NOTE | 2025-02-17 13:15 | DI.CT_ITS ---
Exam(s) CT BRAIN NECK CTA EXAM: CT BRAIN NECK CTA CLINICAL HISTORY: Dizziness headache. TECHNIQUE: Imaging Protocol: Axial CT angiography was performed with multi- slice acquisition and multi-planar and/or 3D reconstructions. CONTRAST MATERIAL: Intravenous: Omnipaque 350 Contrast volume:70 mL COMPARISON: CT CT SINUS WO from 05/11/2024 FINDINGS: CTA Neck W: There is mild infiltrate noted in the posterior segment of the right upper lobe. Aortic arch anatomy: The aortic arch anatomy is conventional and there is no significant stenosis at the origin of the great vessels off of the aortic arch. No intimal flap evident. Anterior circulation: Both common carotid arteries ascend with normal luminal diameters. At the level the carotid bulbs and proximal internal carotid arteries there is minimal plaque without hemodynamically significant stenosis evident. On left side there is some partially calcified plaque on the posterior wall of the carotid bulb with less than 10 percent stenosis. There is no significant narrowing of the proximal internal carotid arteries on either side. The internal carotid arteries in the upper aspect of the neck are patent as well as within the skull base-carotid canals. Posterior circulation: Both vertebral arteries originate in conventional fashion off of the subclavian arteries and there is no obvious stenosis at the origin of the vertebral arteries. Both vertebral arteries exhibit normal luminal diameters within the foramen transversarium. The right vertebral artery is dominant. The posterior inferior cerebellar arteries originate off of the vertebral arteries at the skull base. Both vertebral arteries contribute to the formation of the basilar artery at the skull base. CTA Brain W: Anterior circulation: Both internal carotid arteries are patent in the skull base-carotid canals as well as within the cavernous sinuses. The supraclinoid aspects of the ICAs are patent. Both A1 segments are patent as are the anterior cerebral arteries and there is no evidence of aneurysm at the level of the anterior communicating artery. Left middle cerebral artery is patent. There is significant narrowing in the M1 segment of the right middle cerebral artery starting 1 cm lateral to its origin over a distance of 3 mm. Posterior circulation: Basilar artery ascends without significant stenosis. Distally gives off patent superior cerebellar arteries. Above this level the basilar artery terminates as patent bilateral posterior cerebral arteries. There is no evidence of aneurysm at the tip of the basilar artery nor elsewhere in the [id number]. CT BRAIN: There is no evidence of intracranial hemorrhage, mass effect, or shift of midline structures. There are no extra-axial fluid collections. Ventricles are not enlarged or shifted. There are no ring enhancing lesions in the brain and no abnormal meningeal enhancement. IMPRESSION: 1. Patent carotid arteries in the neck. No hemodynamically significant stenosis. No dissection. 2. Patent vertebral arteries. Right vertebral artery is dominant. 3. There appears to be early bifurcation of the right middle cerebral artery versus is narrowing of the lateral right M1 segment 4. Posterior circulation of the brain is patent. Report called by myself to ER physician on 02/17/2025 at 3:05 p.m. RADIATION DOSE DELIVERED: 2,081.15mGy.cm Total DLP DATA REPOSITORY: All CT scans at this facility are submitted to the National Radiology Data Registry (NRDR) Dose Index Registry (DIR) with the [employer] (A[employer]). RADIATION OPTIMIZATION: All CT scans at this facility use at least one of these dose optimization techniques: automated exposure control; mA and/or kV adjustment per patient size (includes targeted exams where dose is matched to clinical indication); or iterative reconstruction.
[2025-02-17 13:30] LABS: Abs Immature Grans 0.06 10^3/uL (0.0-0.06); HCT 44.7 % (36.0-46.0); HGB 14.6 g/dL (11.2-15.7); Immature Grans % 0.5 %; MCH 28.5 pg (27.0-33.0); MCHC 32.7 % (32.0-36.0); MCV 87 fL (80-95); MPV 9.5 fL (8.0-11.0); Platelet Count 335 10^3/uL (130-400); RBC 5.12 10^6/uL (3.93-5.22); RDW 13.9 % (11.7-14.6); RDW-SD 44.7 fL; WBC 12.27 10^3/uL (4.4-10.8)
[2025-02-17 13:56] LABS: Anion Gap 8.0 mmol/L (3-11); BUN 12 mg/dL (7-18); CO2 31.0 mmol/L (21.0-32.0); Calcium 10.4 mg/dL (8.5-10.1); Chloride 103 mmol/L (98-107); Estimated GFR 74.44 (mL/min/1.73m2); Glucose 137 mg/dL (74-106); Magnesium 2.1 mg/dL (1.8-2.4); Potassium 3.2 mmol/L (3.5-5.1); Sodium 142 mmol/L (136-145); TSH (W/Ref FT4) 0.80 uIU/mL (0.36-3.74); Troponin I 6 ng/L (<or=51)
[2025-02-17 13:58] LABS: D-Dimer 496 ng/mlFEU (<500)
[2025-02-17] MEDS: Normal Saline - Diluent 50 ML VIAL IJ (14:24)
[2025-02-17] MEDS: Omnipaque 350 MG/ML 500 ML BTL-Imaging package 70 ML IJ (14:24)
[2025-02-17 14:41] LABS: Troponin I 6 ng/L (<or=51)
--- NOTE | 2025-02-17 15:00 | DI.MRI_ITS ---
Exam(s) MR BRAIN WO/W EXAM: MR BRAIN WO/W CLINICAL HISTORY: dizziness TECHNIQUE: Multiplanar multisequence MRI of the brain was performed. Both noninfused and contrast infused sequences were performed. IV Contrast injected was 13 cc Dotarem. COMPARISON: No exams were available for comparison FINDINGS: CEREBRAL PARENCHYMA: No evidence of intracranial hemorrhage, mass effect nor shift of midline structure. No extraaxial fluid collections. Ventricles are not enlarged nor shifted. No evidence of cerebellar tonsillar ectopia. There is no significant focal signal abnormality in the cerebellar hemispheres nor within the aleyda, midbrain, and thalami. There are few bilateral tiny FLAIR bright foci of signal abnormality in the Vida and supra ventricular white matter. These are nonspecific findings and not associated with hemorrhage, surrounding edema, enhancement, nor restricted diffusion. DWI: No areas of restricted diffusion to suggest acute ischemic event. SWI: No microhemorrhages evident. There are no ring enhancing lesions in the brain. There is no abnormal meningeal enhancement. PITUITARY GLAND: No mass nor parasellar abnormality. No obvious abnormality in the cavernous sinuses. FLOW VOIDS: The expected flow void are noted. No evidence of obvious aneurysm nor obvious vascular malformation. PARANASAL SINUSES: The visualized paranasal sinuses appear unremarkable. Mastoid air cells are also clear. ORBITS: Previous bilateral cataract surgery. No other findings in the orbits IMPRESSION: 1. No significant acute intracranial findings on this MRI scan of the brain. 2. No abnormal enhancing intracranial findings. There are no ring enhancing lesions in the brain and there is no abnormal meningeal enhancement. Report discussed with ER physician following completion of this study 02/17/2025 at 4:40 p.m. DATA REPOSITORY:
[2025-02-17 15:29] LABS: Lab Add On Test DONE
[2025-02-17 15:37] LABS: ESR 7 mm/hr (0-30)
[2025-02-17] MEDS: Gadoterate meglumine 20 ML SYRINGE 13 ML IVP (15:50)
[2025-02-17 15:51] LABS: C-Reactive Protein < 0.50 mg/dL (<or=0.5)
[2025-02-17] MEDS: Normal Saline Flush 10 ML SYR IVP (15:51)
[2025-02-17] MEDS: Aspirin 81 MG CHEW CH (16:26)
[2025-02-17] MEDS: Meclizine 12.5 MG TAB PO (16:26)
== END 2025-02-17 19:54 | disposition home or self-care (01) ==
PROVIDERS: Emergency Medicine; Emergency Provider Emergency Medicine; PCP Family Medicine
DX: R42 Dizziness and giddiness (principal); R06.02 Shortness of breath; R51.9 Headache, unspecified; I10 Essential (primary) hypertension
CPT/HCPCS: 99284; 99285; 36415; 70496; 70498; 70553; 80048; 85652; 93005; 71046; 83735; 84443; 84484; 85025; 85379; 86140; 93010

== ENCOUNTER 2025-03-03 19:40 | Outpatient (REF) | payer MEDICARE, OTHER, SELFPAY ==
[2025-03-03 12:18] LABS: Creatinine,Urine 25.77 mg/dL
[2025-03-03 12:20] LABS: Creatinine,24hr Ur 0.70 g/24hr (0.60-1.80); Total Volume 2725 ml
[2025-03-04 09:42] LABS: Calcium Urine 15.0 mg/dL (See Note); Timed Urine Volume 2725 mL
== END 2025-03-03 19:41 | disposition home or self-care (01) ==
LOC: LBN 19:40
PROVIDERS: PCP Family Medicine; Visit Provider Student in an Organized Health Care Education/Training Program
DX: E21.3 Hyperparathyroidism, unspecified (principal)
CPT/HCPCS: 81050; 82340; 82570

== ENCOUNTER 2025-03-04 07:00 | Outpatient (CLI) | payer MEDICARE, OTHER, SELFPAY ==
--- NOTE | 2025-03-04 14:40 | W.CARDEVENT ---
Date of service: 03/04/25 Time of Service: 14:40 Cardiac Event Recorder Referring Provider:: Ashley Winter Indications:: Palpitations Cardiac Event Note: This is a cardiac event monitor. Patient was monitored for 28 days and 16 hours Rhythm throughout was sinus. There was an average heart rate of 74. Minimum was 57, maximum 107 there were rare isolated atrial and ventricular ectopic beats There was no atrial fibrillation, no high-grade AV block, no pauses greater than 3 seconds Reported symptoms correlated both to sinus rhythm and to atrial premature beats
== END 2025-03-04 07:01 | disposition home or self-care (01) ==
LOC: CARDOPNVT 07:00
PROVIDERS: PCP Family Medicine; Visit Provider Internal Medicine Cardiovascular Disease
DX: R00.2 Palpitations (principal); I49.1 Atrial premature depolarization
CPT/HCPCS: 93272

== ENCOUNTER 2025-04-01 04:12 | Outpatient (CLI) | payer MEDICARE, OTHER, SELFPAY ==
--- NOTE | 2025-04-01 | DI.DEXA_ITS ---
Exam(s) XR DEXA BONE DENSITY W/WO LUIGI EXAM: XR DEXA BONE DENSITY W/WO LUIGI CLINICAL HISTORY: SENILE OSTEOPOROSIS, M81.0 TECHNIQUE: COMPARISON: CR XR DEXA BONE DENSITY W/WO LUIGI from 03/14/2023 FINDINGS: Lateral Spine Image: Unremarkable. No compression deformities identified. Left hip: Total T-Score: -1.8. This compares to -1.9 on the prior examination. Total Z-Score: 0.3 T- and Z-scores: Findings are consistent with osteopenia. Lumbar Spine: Total T-Score: -0.6. This compares to -1.1 on the prior examination. Total Z-Score: 2.1 T- and Z-scores: Within normal limits. IMPRESSION: There is no evidence of osteoporosis in the left hip or lumbar spine.
== END 2025-04-01 04:32 ==
LOC: DI 04:12
PROVIDERS: PCP Family Medicine; Visit Provider Family Medicine
DX: M81.0 Age-related osteoporosis without current pathological fracture (principal)
CPT/HCPCS: 77080

== ENCOUNTER → 2025-04-05 10:37 | Outpatient (BNVA) | payer MEDICARE, OTHER, SELFPAY | PROVIDERS: PCP Family Medicine; Referring Provider Family Medicine; Visit Provider Registered Nurse | DX: I47.10 Supraventricular tachycardia, unspecified (principal); I10 Essential (primary) hypertension; Z79.01 Long term (current) use of anticoagulants | CPT/HCPCS: 99214 ==

== ENCOUNTER 2025-06-07 03:50 | Outpatient (CLI) | payer MEDICARE, OTHER, SELFPAY ==
[2025-06-07 12:02] LABS: Abs Immature Grans 0.12 10^3/uL (0.0-0.06); HCT 43.4 % (36.0-46.0); HGB 14.4 g/dL (11.2-15.7); Immature Grans % 0.8 %; MCH 29.2 pg (27.0-33.0); MCHC 33.2 % (32.0-36.0); MCV 88 fL (80-95); MPV 9.8 fL (8.0-11.0); Platelet Count 338 10^3/uL (130-400); RBC 4.93 10^6/uL (3.93-5.22); RDW 13.8 % (11.7-14.6); RDW-SD 44.4 fL; WBC 14.52 10^3/uL (4.4-10.8)
[2025-06-07 12:58] LABS: ALT 36 U/L (10-49); AST 25 U/L (<34); Albumin 4.1 g/dL (3.4-5.0); Alkaline Phosphatase 87 U/L (46-116); Anion Gap 9.7 mmol/L (3-11); BUN 13 mg/dL (9-23); Bilirubin, Total 0.30 mg/dL (0.2-1.2); CO2 31.3 mmol/L (20.0-31.0); Calcium 10.0 mg/dL (8.3-10.6); Chloride 101 mmol/L (98-107); Glucose 129 mg/dL (74-106); Potassium 3.3 mmol/L (3.5-5.1); Sodium 142 mmol/L (136-145); Total Protein 6.1 g/dL (5.7-8.2)
[2025-06-22 09:17] LABS: CD16+CD56 10 % (5-31); CD19 <1 % (5-25); CD3 89 % (56-84); CD4 68 % (31-64); CD8 30 % (9-39); Total CD3 3994 Cells/uL (840-2,669)
[2025-06-22 09:18] LABS: Absolute CD16+CD56 455 Cells/uL (108-680)
== END 2025-06-07 03:51 | disposition home or self-care (01) ==
LOC: LBO 03:50
PROVIDERS: PCP Family Medicine; Visit Provider Internal Medicine
DX: I77.82 Antineutrophilic cytoplasmic antibody [ANCA] vasculitis (principal); R79.89 Other specified abnormal findings of blood chemistry
CPT/HCPCS: 36415; 80053; 85025; 86355; 86357; 86359; 86360

== ENCOUNTER 2025-06-19 10:52 | Outpatient (REF) | payer MEDICARE, OTHER, SELFPAY ==
[2025-06-19 17:53] LABS: COVID-19 PCR Negative (Negative); RSV PCR Negative (Negative)
== END 2025-06-19 10:53 | disposition home or self-care (01) ==
LOC: LBN 10:52
PROVIDERS: PCP Family Medicine
DX: I77.6 Arteritis, unspecified (principal)
CPT/HCPCS: 87637

== ENCOUNTER 2025-07-01 00:53 | Outpatient (CLI) | payer MEDICARE, OTHER, SELFPAY ==
--- NOTE | 2025-07-01 15:31 | W.PFT ---
Date of service: 07/01/25 Time of Service: 12:56 Pulmonary Function Test Result Indications: Dyspnea Impression 1. Good patient effort was noted. ATS standards for reproducibility were met. 2. Spirometry showed mild obstructive lung disease with an FEV1 of 87% (1.36 L) 3. DLCO was normal at 109% predicted
== END 2025-07-01 00:54 | disposition home or self-care (01) ==
LOC: RT 00:53
PROVIDERS: PCP Family Medicine; Visit Provider Internal Medicine
DX: I77.82 Antineutrophilic cytoplasmic antibody [ANCA] vasculitis (principal); R06.00 Dyspnea, unspecified; J44.9 Chronic obstructive pulmonary disease, unspecified
CPT/HCPCS: 94010; 94729

== ENCOUNTER 2025-07-09 00:23 | Outpatient (CLI) | payer MEDICARE, OTHER, SELFPAY ==
[2025-07-09 13:47] LABS: Abs Immature Grans 0.57 10^3/uL (0.0-0.06); HCT 44.7 % (36.0-46.0); HGB 14.7 g/dL (11.2-15.7); Immature Grans % 2.5 %; MCH 28.4 pg (27.0-33.0); MCHC 32.9 % (32.0-36.0); MCV 87 fL (80-95); MPV 9.3 fL (8.0-11.0); Platelet Count 327 10^3/uL (130-400); RBC 5.17 10^6/uL (3.93-5.22); RDW 13.9 % (11.7-14.6); RDW-SD 44.0 fL; WBC 23.22 10^3/uL (4.4-10.8)
[2025-07-09 14:09] LABS: RBC Morphology Normal
[2025-07-09 14:12] LABS: ALT 40 U/L (10-49); AST 15 U/L (<34); Albumin 4.1 g/dL (3.2-5.0); Alkaline Phosphatase 80 U/L (46-116); Anion Gap 9.4 mmol/L (3-11); BUN 19 mg/dL (9-23); Bilirubin, Total 0.6 mg/dL (0.2-1.2); CO2 27.6 mmol/L (20.0-31.0); Calcium 10.0 mg/dL (8.3-10.6); Chloride 101 mmol/L (98-107); Glucose 277 mg/dL (74-106); Potassium 3.5 mmol/L (3.5-5.1); Sodium 138 mmol/L (136-145); Total Protein 6.2 g/dL (5.7-8.2)
[2025-07-13 12:44] LABS: Creatine Kinase 48 U/L (34-145)
== END 2025-07-09 00:24 | disposition home or self-care (01) ==
PROVIDERS: PCP Family Medicine; Visit Provider Internal Medicine
DX: R79.89 Other specified abnormal findings of blood chemistry (principal); G72.9 Myopathy, unspecified
CPT/HCPCS: 36415; 80053; 82550; 85025